=== PATIENT | female | born 1975 | race Caucasian/White ===

== ENCOUNTER 2022-03-26 00:36 | Inpatient (IN) | payer OTHER ==
[2022-03-26] MEDS ORDERED: ACETAMINOPHEN 500 MG TAB ONE (01:23)
[2022-03-26 01:28] LABS: Absolute Lymphocytes (CBC) 1.8 K/uL (0.7-4.9); MCV 88.5 fL (80-100); MPV 8.3 fL (7.6-11.3); RBC Red Blood Cell Count 4.07 M/uL (3.86-4.86)
[2022-03-26 01:29] LABS: Protime INR 1.1
[2022-03-26 01:35] LABS: Blood Gas Oxyhemoglobin 90.4 % (94-97); Blood O2 Saturation 93.2 % (92-98.5)
[2022-03-26 01:42] LABS: Bilirubin Direct 0.2 mg/dL (0-0.2); Bilirubin Total 0.4 mg/dL (0.2-1.0); Magnesium 1.8 mg/dL (1.8-2.4); Potassium 4.1 mmol/L (3.5-5.1); Protein, Total 7.7 g/dL (6.4-8.2); Troponin High Sensitivity 26.3 pg/mL (<58.9)
[2022-03-26 02:10] LABS: Urine Blood Negative (Negative); Urine Glucose Negative (Negative); Urine Protein Negative (Negative); Urine Specific Gravity >=1.030 (1.005-1.030); Urine pH 5.5 (5.0-7.0)
[2022-03-26] MEDS ORDERED: AZITHROMYCIN 500 MG INJ IVPB ONE (02:18)
[2022-03-26] MEDS ORDERED: CEFTRIAXONE 1000 MG/VIAL ONE (02:18)
[2022-03-26] MEDS ORDERED: NA CHLORIDE 0.9% 1,000 ML ONE (02:18)
[2022-03-26] MEDS ORDERED: NA CHLORIDE 0.9% 250 ML ONE (02:18)
[2022-03-26] MEDS ORDERED: METHYLPREDNISOLONE 125 MG INJ ONE (02:18)
--- NOTE | 2022-03-26 02:57 | P.HP ---
Certification for Inpatient Patient admitted to: Inpatient With expected LOS: >2 Midnights Patient will require the following post-hospital care: None Practitioner: I am a practitioner with admitting privileges, knowledge of patient current condition, hospital course, and medical plan of care. Services: Services provided to patient in accordance with Admission requirements found in Title 42 Section 412.3 of the Code of Federal Regulations <Mayo Quinn - Last Filed: 03/26/22 02:49> Patient History Date of Service: 03/26/22 Reason for admission: Hypercapnic respiratory failure History of Present Illness: 47-year-old female history morbid obesity, COPD, diabetes mellitus type II who is a prison resident for the last 2 years presents emergency department for shortness of breath and fever. Patient reports that the shortness of breath and fever began today her room air saturations were around 82%. Her labs were significant for leukocytosis, moderate lactic acidosis, hyperglycemia, elevated BNP. ABG demonstrated hypercapnic respiratory failure. Patient with suspected pneumonia chest x-ray interpretation pending. She was treated with Rocephin and Zithromax in the emergency department placed on BiPAP for hypercapnic respiratory failure ED provider wishes to admit for further evaluation and management. - Past Medical/Surgical History -: COPD -: DMII -: morbid obesity Past Surgical History: Unable to obtain Psychosocial/ Personal History: Patient is resident of prison - Family History Family History: Reviewed- Non-Contributory - Social History Smoking Status: Never smoker Alcohol use: No CD- Drugs: No Caffeine use: Yes Place of Residence: Home <Mayo Quinn - Last Filed: 03/26/22 02:49> Date of Service: 03/26/22 <Daniel Carvalho - Last Filed: 03/26/22 18:28> Review of Systems 10-point ROS is otherwise unremarkable General: Fever, Chills, Weakness, Malaise Respiratory: Cough, Shortness of Breath <Mayo Quinn - Last Filed: 03/26/22 02:49> Physical Examination - Physical Exam General: Alert, In no apparent distress, Oriented x3, Obese HEENT: Atraumatic, PERRLA, Mucous membr. moist/pink, EOMI, Sclerae nonicteric Neck: Supple, 2+ carotid pulse no bruit, No LAD, Without JVD or thyroid abnormality Respiratory: Diminished, Expiratory wheezes, Other (BiPAP) Cardiovascular: Regular rate/rhythm, Normal S1 S2 Capillary refill: <2 Seconds Gastrointestinal: Normal bowel sounds, No tenderness Musculoskeletal: No tenderness Integumentary: No rashes Neurological: Normal speech, Normal strength at 5/5 x4 extr, Normal tone - Studies Laboratory Data (last 24 hrs) 03/26/22 00:55: PT 12.1, INR 1.10 03/26/22 00:55: WBC 12.6 H, Hgb 11.2 L, Hct 36.0, Plt Count 288 03/26/22 00:55: Sodium 133 L, Potassium 4.1, BUN 11, Creatinine 0.89, Glucose 277 H, Magnesium 1.8, Total Bilirubin 0.4, AST 10 L, ALT 17, Alkaline P hosphatase 91 <Mayo Quinn - Last Filed: 03/26/22 02:49> - Studies Laboratory Data (last 24 hrs) 03/26/22 00:55: PT 12.1, INR 1.10 03/26/22 00:55: WBC 12.6 H, Hgb 11.2 L, Hct 36.0, Plt Count 288 03/26/22 00:55: Sodium 133 L, Potassium 4.1, BUN 11, Creatinine 0.89, Glucose 27 7 H, Magnesium 1.8, Total Bilirubin 0.4, AST 10 L, ALT 17, Alkaline Phosphatase 91 Microbiology Data (last 24 hrs): 03/26/22 01:28 Nasopharnyx Influenza Type A Antigen Screen - Final 03/26/22 01:28 Nasopharnyx Influenza Type B Antigen Screen - Final 03/26/22 01:28 Throat Group A Streptococcus Rapid Screen - Final <Daniel Carvalho - Last Filed: 03/26/22 18:28> Assessment and Plan - Plan Assessment: Severe sepsis without septic shock secondary to suspected pneumonia Acute hypercapnic respiratory failure COPD with exacerbation Chronic systolic congestive heart failure Morbid Obesity Depression Plan: Severe sepsis without septic shock secondary to suspected pneumonia: Patient given 1 L NS bolus in the ER given history of systolic heart failure, blood pressure stable. Patient was covered with Rocephin and Zithromax for suspected pneumonia COVID/influenza test pending. Blood cultures were obtained. Acute hypercapnic respiratory failure: Continue BiPAP, pulmonology consulted likely combination pneumonia/obesity hypoventilation/COPD exacerbation. COPD with exacerbation: Continue IV steroids, BiPAP, as needed nebulizer treatments. Pulmonology consult in place. Chronic systolic congestive heart failure: Continue home dose of Lasix 80 mg daily, echocardiogram available for review unknown EF. Diagnosis per chart review. Morbid Obesity: Patient morbidly obese, bedbound for last 2 years currently resides in a prison with just lifestyle changes, provide patient with bariatric bed when available. Depression: Medications continued. DVT PPX: Lovenox Code status: Full code Discharge Plan: Prison Plan to discharge in: 72 Hours - Advance Directives Does patient have a Living Will: No Does patient have a Durable POA for Healthcare: No - Code Status/Comfort Care Code Status Assessed: Yes (Full code) Critical Care: No Time Spent Managing Pts Care (In Minutes): 70 <Mayo Quinn - Last Filed: 03/26/22 02:49> - Plan Patient seen and examined on rounds this morning. Agree with plan of care as noted above. Patient breathing more comfortably now on BiPAP for few hours States that she has COPD and wears chronic 3 L nasal cannula at the prison all day for "a while" Elevated lactate, secondary to hypoxemia Appears to be in acute CHF exacerbation, sepsis bolus fluids not given, avoid fluids for patient given her volume status suspect oxygenation to improve with diuresis / steroids / antibiotics, and help lactic acidosis alexa for accurate I/Os <Daniel Carvalho - Last Filed: 03/26/22 18:28>
--- NOTE | 2022-03-26 04:17 | ER ---
Nurse's Notes [facility] Name: Courtney Sawyer Age: 47 yrs Sex: Female : 1975 Arrival Date: 03/26/2022 Time: 00:39 Bed 15 Private MD: Diagnosis: COPD/ Chronic obstructive pulmonary disease with (acute) exacerbation;Acute respiratory failure with hypercapnia Presentation: 03/26 00:50 Chief complaint: EMS states: Call received form longterm for low oxygen level 82%, ke1 patient put on NR mask and administered neb treatment by EMS increased her O2 to 94%. Initial Sepsis Screen: Does the patient meet any 2 criteria? RR > 20 per min. Temp <36.0*C (96.8*F)) or > 38.3*C (100.9*F). HR > 90 bpm. Yes Does the patient have a suspected source of infection? No. Patient's initial sepsis screen is negative. Risk Assessment: Do you want to hurt yourself or someone else? Patient reports no desire to harm self or others. Onset of symptoms was March 25, 2022. 00:50 Method Of Arrival: EMS ke1 00:50 Acuity: LAURI 3 ke1 Triage Assessment: 00:58 General: Appears in no apparent distress. Behavior is appropriate for age. Respiratory: ke1 Respiratory effort is even, unlabored. 01:00 Respiratory: the patient has moderate shortness of breath. ke1 03:47 Respiratory: Reports. ke1 Historical: - Allergies: 00:57 Codeine; ke1 00:57 Adhesives; ke1 - PMHx: 00:57 Diabetes mellitus; copd; Asthma; ke1 Screenin:11 Abuse screen: Denies threats or abuse. Nutritional screening: No deficits noted. ke1 Tuberculosis screening: No symptoms or risk factors identified. Fall Risk No fall in past 12 months (0 pts). No secondary diagnosis (0 pts). IV access (20 points). Ambulatory Aid- Furniture (30 pts.). Gait- Normal/Bed Rest/Wheelchair (0 pts) Mental Status- Oriented to own ability (0 pts). Total Olmedo Fall Scale indicates High Risk Score (45 or more points). Fall prevention measures have been instituted. Side Rails Up X 2 Placed Close to Nursing Station Frequent Obs/Assessments Occuring. Sepsis Screening:. Assessment: 02:02 Reassessment: Lactic 3.1, notified. vc1 03:09 Pain: Denies pain. Cardiovascular: Rhythm is sinus rhythm. Respiratory: Patient placed ke1 on BiPAP: Inspiratory Pressure: 16 Expiratory (EPAP) Pressure: 8 FiO2%: 40 Respiratory Rate: 18 Breath sounds with wheezes bilaterally. GI: Abdomen is obese. : Genitalia appear normal. Derm: Skin is intact, is healthy with good turgor. 03:12 Respiratory: Airway is patent. ke1 Vital Signs: 00:50 BP 101 / 65; Pulse 98; Resp 21; Temp 101.2; Pulse Ox 97% ; Weight 230.5 kg; Height 5 ke1 ft. 8 in. (172.72 cm); 03:07 BP 101 / 61; Pulse 89; Pulse Ox 94% on BiPAP 16/8/18 40 %; ke1 03:46 BP 99 / 65; Pulse 77; Resp 17; Temp 98.7(A); Pulse Ox 92% on BiPAP; ke1 04:55 BP 98 / 64; Pulse 72; Resp 22; Temp 98.6(A); Pulse Ox 93% on BiPAP; Pain 0/10; ke1 00:50 Body Mass Index 77.27 (230.50 kg, 172.72 cm) ke1 ED Course: 00:39 Patient arrived in ED. oe 00:39 Severiano Alexander MD is Attending Physician. 7 00:50 Keyla Hernandez, RN is Primary Nurse. ke1 00:57 Triage completed. ke1 01:05 Inserted saline lock: 20 gauge in right forearm, using aseptic technique. Blood oe collected. 02:21 XRAY Chest (1 view) In Process Unspecified. EDMS 03:12 Arm band placed on left wrist. ke1 03:12 Call light in reach. Side rails up X 1. Side rails up X2. ke1 04:13 Daniel Carvalho MD is Hospitalizing Provider. mh7 04:45 Lactate Sent. ke1 07:00 Patient placed on BiPAP. Inspiratory pressure: 16. Expiratory pressure: 8. FIO2: 40. eb2 Rate: 18 Alarms Set: Alarms are set, functioning and audible at nurse's station. Education provided to the patient regarding: Other: Patient was educated on BiPAP, and the need to keep it on as long as possible due to her ABG results from earlier this morning. Respiratory: No deficits noted. Breath sounds are diminished bilaterally. 07:00 Patient tolerated well. eb2 07:09 Primary Nurse role handed off by Keyla Hernandez, FREDERICK bp 07:09 Derik Huynh, RN is Primary Nurse. bp Administered Medications: 01:45 Drug: Tylenol 1000 mg Route: PO; vc1 02:30 Drug: SOLU-Medrol (methylPrednisoLONE) 125 mg Route: IVP; Site: right forearm; vc1 02:30 Drug: NS 0.9% 1000 ml Route: IV; Rate: 1000 ml; Site: right forearm; vc1 02:30 Drug: Rocephin (cefTRIAXone) 1 grams Route: IV; Rate: calculated rate; Site: right vc1 forearm; 02:30 Drug: Zithromax (azithromycin) 500 mg Route: IVPB; Infused Over: 1 hrs; Site: right vc1 forearm; Outcome: 04:16 Decision to Hospitalize by Provider. [facility] 16:40 Patient left the ED. bp Signatures: Dispatcher [employer] EDMS Jay Watts Brian, RN RN bp Jackie Navarro, R/T R/T eb2 Severiano Alexander MD MD 7 Samia Vitale RN RN vc1 Keyla Hernandez, FREDERICK RN ke1 Corrections: (The following items were deleted from the chart) 03:51 03:46 BP 99 / 65; Pulse 77bpm; Resp 17bpm; Pulse Ox 92% BiPAP; ke1 ke1
--- NOTE | 2022-03-26 04:17 | EDPHYS ---
Physician Documentation [facility] Name: Courtney Sawyer Age: 47 yrs Sex: Female : 1975 Arrival Date: 03/26/2022 Time: 00:39 Bed 15 Private MD: ED Physician Severiano Alexander HPI: 03/26 01:00 This 47 yrs old Female presents to ER via EMS with complaints of Shortness Of Breath. mh7 01:00 The patient has shortness of breath at rest. Onset: The symptoms/episode began/occurred mh7 just prior to arrival, today. Duration: The symptoms are continuous, and are steadily getting worse. The patient's shortness of breath is aggravated by coughing, is alleviated by nebulizer treatment. Associated signs and symptoms: Pertinent positives: non-productive cough, Pertinent negatives: chest pain, productive cough, diaphoresis, dizziness, fever, hemoptysis, loss of consciousness, nausea, numbness in extremities, visual changes, vomiting. Severity of symptoms: At their worst the symptoms were moderate today, in the emergency department the symptoms have improved moderately. Historical: - Allergies: 00:57 Codeine; ke1 00:57 Adhesives; ke1 - PMHx: 00:57 Diabetes mellitus; copd; Asthma; ke1 ROS: 01:00 Constitutional: Negative for fever, chills, and weight loss, Eyes: Negative for injury, mh7 pain, redness, and discharge, ENT: Negative for injury, pain, and discharge, Neck: Negative for injury, pain, and swelling, Cardiovascular: Negative for chest pain, palpitations, and edema, Abdomen/GI: Negative for abdominal pain, nausea, vomiting, diarrhea, and constipation, Back: Negative for injury and pain, : Negative for injury, bleeding, discharge, and swelling, MS/Extremity: Negative for injury and deformity, Skin: Negative for injury, rash, and discoloration, Neuro: Negative for headache, weakness, numbness, tingling, and seizure, Psych: Negative for depression, anxiety, suicide ideation, homicidal ideation, and hallucinations, Allergy/Immunology: Negative for hives, rash, and allergies, Endocrine: Negative for neck swelling, polydipsia, polyuria, polyphagia, and marked weight changes, Hematologic/Lymphatic: Negative for swollen nodes, abnormal bleeding, and unusual bruising. Exam: 01:00 Head/Face: Normocephalic, atraumatic. Eyes: Pupils equal round and reactive to light, mh7 extra-ocular motions intact. Lids and lashes normal. Conjunctiva and sclera are non-icteric and not injected. Cornea within normal limits. Periorbital areas with no swelling, redness, or edema. Neck: Trachea midline, no thyromegaly or masses palpated, and no cervical lymphadenopathy. Supple, full range of motion without nuchal rigidity, or vertebral point tenderness. No Meningismus. Chest/axilla: Normal chest wall appearance and motion. Nontender with no deformity. No lesions are appreciated. Cardiovascular: Regular rate and rhythm with a normal S1 and S2. No gallops, murmurs, or rubs. Normal PMI, no JVD. No pulse deficits. 01:00 Abdomen/GI: Soft, non-tender, with normal bowel sounds. No distension or tympany. No guarding or rebound. No evidence of tenderness throughout. Skin: Warm, dry with normal turgor. Normal color with no rashes, no lesions, and no evidence of cellulitis. MS/ Extremity: Pulses equal, no cyanosis. Neurovascular intact. Full, normal range of motion. Psych: Awake, alert, with orientation to person, place and time. Behavior, mood, and affect are within normal limits. 01:00 Constitutional: The patient appears in no acute distress, alert, awake, obviously ill. 01:00 Respiratory: mild respiratory distress is noted, Respirations: prolonged exhalation, that is mild, Breath sounds: rhonchi, that are moderate, are scattered, Respiratory rate: 20 Vital Signs: 00:50 BP 101 / 65; Pulse 98; Resp 21; Temp 101.2; Pulse Ox 97% ; Weight 230.5 kg; Height 5 ke1 ft. 8 in. (172.72 cm); 03:07 BP 101 / 61; Pulse 89; Pulse Ox 94% on BiPAP 16/8/18 40 %; ke1 03:46 BP 99 / 65; Pulse 77; Resp 17; Temp 98.7(A); Pulse Ox 92% on BiPAP; ke1 04:55 BP 98 / 64; Pulse 72; Resp 22; Temp 98.6(A); Pulse Ox 93% on BiPAP; Pain 0/10; 1 00:50 Body Mass Index 77.27 (230.50 kg, 172.72 cm) 1 MDM: 04:12 Differential diagnosis: Anemia Anxiety Reaction asthma, Bronchitis CHF exacerbation, [facility] Chronic Obstructive Pulmonary Disease Myocardial Infarction pneumonia, Pneumothorax Psychogenic pulmonary edema. Data reviewed: vital signs, nurses notes, EMS record, long-term records, lab test result(s), cardiac enzymes, CBC, electrolytes, EKG, radiologic studies, plain films. Data interpreted: Pulse oximetry: on BiPAP is 94 %. Interpretation: acceptable. Counseling: I had a detailed discussion with the patient and/or guardian regarding: the historical points, exam findings, and any diagnostic results supporting the discharge/admit diagnosis, lab results, radiology results, the need for further work-up and treatment in the hospital. Response to treatment: the patient's symptoms have mildly improved after treatment. 04:16 Patient medically screened. [facility] 03/26 01:02 Order name: Basic Metabolic Panel; Complete Time: 03:05 [facility] 03/26 01:02 Order name: CBC with Diff; Complete Time: 03:05 [facility] 03/26 01:02 Order name: LFT's; Complete Time: 03:05 [facility] 03/26 01:02 Order name: Magnesium; Complete Time: 03:05 [facility] 03/26 01:02 Order name: NT PRO-BNP; Complete Time: 03:05 [facility] 03/26 01:02 Order name: PT-INR; Complete Time: 01:41 [facility] 03/26 01:02 Order name: Troponin HS; Complete Time: 03:05 [facility] 03/26 01:02 Order name: Blood Culture Adult (2) [facility] 03/26 01:02 Order name: Urine Culture [facility] 03/26 01:02 Order name: COVID-19 SARS RT PCR (Document "Date of Onset" if Symptomatic) [facility] 03/26 01:02 Order name: Influenza Screen (a \\T\\ B) [facility] 03/26 01:02 Order name: Rapid Strep [facility] 03/26 01:02 Order name: Arterial Blood Gas; Complete Time: 03:05 [facility] 03/26 01:10 Order name: Glucose, Ancillary Testing; Complete Time: 01:41 [facility] 03/26 01:02 Order name: XRAY Chest (1 view) [facility] 03/26 01:53 Order name: Lactate; Complete Time: 03:05 ld1 03/26 02:07 Order name: BIPAP 1 03/26 02:10 Order name: Urine Dipstick-Ancillary; Complete Time: 03:05 [facility] 03/26 03:57 Order name: Lactate on license of [facility] 03/26 05:03 Order name: Lactate Sepsis 2 HR Follow-up; Complete Time: 05:20 EDN[facility] 03/26 06:47 Order name: ABG Arterial Blood Gas [facility] 03/26 07:01 Order name: Glucose, Ancillary Testing [facility] 03/26 09:17 Order name: Lactate [facility] 03/26 12:02 Order name: Glucose, Ancillary Testing [facility] 03/26 12:22 Order name: Lactate Sepsis 2 HR Follow-up [facility] 03/26 16:34 Order name: Thyroid Stimulating Hormone [facility] 03/26 01:02 Order name: EKG; Complete Time: 01:03 [facility] 03/26 01:02 Order name: Cardiac monitoring; Complete Time: 01:05 [facility] 03/26 01:02 Order name: EKG - Nurse/Tech; Complete Time: 01:05 [facility] 03/26 01:02 Order name: IV Saline Lock; Complete Time: 01:06 [facility] 03/26 01:02 Order name: Labs collected and sent; Complete Time: 02:07 [facility] 03/26 01:02 Order name: O2 Per Protocol; Complete Time: 01:06 [facility] 03/26 01:02 Order name: O2 Sat Monitoring; Complete Time: 01:06 [facility] 03/26 01:02 Order name: Urine Dipstick-Ancillary (obtain specimen); Complete Time: 02:08 [facility] 03/26 01:02 Order name: Urine Test (obtain specimen); Complete Time: 02:08 [facility] Administered Medications: 01:45 Drug: Tylenol 1000 mg Route: PO; vc1 02:30 Drug: SOLU-Medrol (methylPrednisoLONE) 125 mg Route: IVP; Site: right forearm; vc1 02:30 Drug: NS 0.9% 1000 ml Route: IV; Rate: 1000 ml; Site: right forearm; vc1 02:30 Drug: Rocephin (cefTRIAXone) 1 grams Route: IV; Rate: calculated rate; Site: right vc1 forearm; 02:30 Drug: Zithromax (azithromycin) 500 mg Route: IVPB; Infused Over: 1 hrs; Site: right vc1 forearm; Disposition Summary: 03/26/22 04:16 Hospitalization Ordered Hospitalization Status: Inpatient Admission [facility] Provider: Daniel Carvalho Condition: Stable [facility] Problem: an acute exacerbation [facility] Symptoms: have improved mh Bed/Room Type: Standard [facility] Location: Telemetry/MedSurg (Inpatient)(03/26/22 16:07) eb Room Assignment: [facility](03/26/22 16:07) eb Diagnosis - COPD/ Chronic obstructive pulmonary disease with (acute) exacerbation 7 - Acute respiratory failure with hypercapnia [facility] Forms: - Medication Reconciliation Form mh7 - SBAR form 7 Signatures: Dispatcher [employer] EDMS Mayo Quinn, MISAEL-C FACING CUTTING MACHINE OPERATOR-Cla1 Mitzi Otero, RN RN Rafaela Tran Maurice, MD MD 7 Damaris Omalley RN RN ld1 Samia Vitale RN RN vc1 Keyla Hernandez RN RN ke1 Corrections: (The following items were deleted from the chart) 05:18 04:16 Telemetry/MedSurg (Inpatient) mh7 cg 05:18 04:16 mh7 cg 16:07 05:18 [facility] ER HOLD cg eb 16:07 05:18 ERHOLD- cg eb
[2022-03-26] MEDS ORDERED: BENZONATATE 100 MG CAP PO PRN (06:12)
[2022-03-26] MEDS ORDERED: ONDANSETRON 4 MG/2 ML VIAL IV PRN (06:12)
[2022-03-26] MEDS ORDERED: ALBUTEROL 2.5 MG/3 ML NEB SOL NEB PRN (06:12)
[2022-03-26 06:27] VITALS: BMI 77.2
[2022-03-26 06:45] LABS: Arterial Blood Carboxyhemoglob 1.9 % (0-1.5); Blood Gas Oxyhemoglobin 94.7 % (94-97); Blood O2 Saturation 97.5 % (92-98.5)
[2022-03-26] MEDS: INSULIN -REGULAR HUMAN 50 UNIT/0.5 ML ML SQ SCH ×4 (07:30→21:30)
[2022-03-26] MEDS ORDERED: INSULIN -REGULAR HUMAN 50 UNIT/0.5 ML ML ONE ×3 (08:43→13:55)
[2022-03-26] MEDS: DULERA 200/5 (MOMETASONE/FORMOTEROL) INHALER IH SCH ×2 (09:00→21:00)
[2022-03-26] MEDS: lisinopriL 5 MG TAB PO SCH (09:00)
[2022-03-26] MEDS: ENOXAPARIN 40 MG/0.4 ML SQ SCH (09:00)
[2022-03-26] MEDS: ASPIRIN EC 81 MG TAB PO SCH (09:00)
[2022-03-26] MEDS: FUROSEMIDE 40 MG TABLET PO SCH (09:00)
[2022-03-26] MEDS ORDERED: METHYLPREDNISOLONE 40 MG INJ IV SCH (09:00)
[2022-03-26] MEDS: SERTRALINE HCL 100 MG TAB PO SCH (09:00)
[2022-03-26] MEDS ORDERED: INSULIN GLARGINE 100 UNIT/ML SQ SCH (09:00)
[2022-03-26] MEDS ORDERED: INSULIN GLARGINE 100 UNIT/ML SQ ONE (09:11)
--- NOTE | 2022-03-26 09:11 | EKG ---
Test Date: 2022-03-26 Test Time: 00:42:10 Senior Operations Manager: CAROLINA MEASUREMENT RESULTS: Intervals: Rate: 100 TN: 178 QRSD: 90 QT: 366 QTc: 472 [place]ett: P: 40 TN: 178 QRS: 55 T: 59 INTERPRETIVE STATEMENTS: Normal sinus rhythm Normal ECG No previous ECG available for comparison Electronically Signed On 03-26-22 09:10:36 CDT by Jessee Carter
[2022-03-26] MEDS ORDERED: METHYLPREDNISOLONE 40 MG INJ ONE (09:12)
[2022-03-26] MEDS ORDERED: FUROSEMIDE 40 MG TABLET ONE (09:12)
[2022-03-26] MEDS ORDERED: lisinopriL 5 MG TAB ONE (09:12)
[2022-03-26] MEDS ORDERED: ASPIRIN EC 81 MG TAB PO ONE (09:12)
[2022-03-26] MEDS ORDERED: ENOXAPARIN 40 MG/0.4 ML SQ ONE (09:13)
--- NOTE | 2022-03-26 11:44 | CON ---
Date of Consultation: 03/26/2022 Reason For Consultation: Congestive heart failure and sepsis. History Of Present Illness: Ms. Sawyer is 47. She is a long-term resident. She has a history of COPD, diabetes, asthma, and congestive heart failure. She came into the emergency room with PND, ort hopnea, pedal edema, shortness of breath, and was found to be septic as well. Denied chest pain, madhuri sea, vomiting. Has had some diaphoresis and has had some chills, but no fever. Denied any chest chito n. Past Medical History: As stated above. Allergies: SHE IS ALLERGIC TO CODEINE AND ADHESIVE TAPE. Social History: Positive for being a long-term resident. Review of Systems: Negative. Family History: Noncontributory. Medications: Include Lasix, inhalers, Lipitor. Physical Examination: General: She is morbidly obese. Vital Signs: Otherwise stable. She was in sinus rhythm, afebrile. HEENT: Negative. Neck: Supple with no bruit. Chest: Reveals rales throughout. Cardiac: Revealed S4 gallops. Regular rhythm and rate. Abdomen: Obese. Extremities: Revealed no edema, clubbing, or cyanosis. Diagnostic Data: Glucose was 317. On CPAP and BiPAP; her pO2 was 97, pCO2 was 63, pH of 7.35. Her white count is 17. Lactic acid level is 3.37. BNP is 1149. Impression And Plan: 1.Acute on chronic systolic congestive heart failure. 2.Acute on chronic obstructive pulmonary disease exacerbation. 3.Sepsis. 4.Morbid obesity. 5.Diabetes. 6.CO2 retention. 7.Elevated BNP. The patient presently is on Lovenox, steroids, insulin, Lasix, inhalers, Lipitor, a ntibiotics, and lisinopril. I agree with her present regimen. I would like her to get another echoc ardiogram on Monday to see what her ejection fraction is. We will continue to follow Mrs. Cem oneil with Dr. Carvalho. Depending her ejection fraction, she may be a candidate for carvedilol and/or Entr esto, but we will see what her EF shows first. FELICIANO/MARCUS Voice ID: [id number] Report ID: [id number]
[2022-03-26] MEDS ORDERED: D50W 25 GM/50 ML SYRINGE IV PRN (13:07)
[2022-03-26] MEDS ORDERED: GLUCAGON 1 MG/VIAL IM PRN (13:07)
[2022-03-26] MEDS ORDERED: INSULIN -REGULAR HUMAN 50 UNIT/0.5 ML ML IV ONE (13:15)
--- NOTE | 2022-03-26 15:18 | P.CNS ---
Date of Consult: 03/26/22 Reason for Consult: Resp failure Chief Complaint: Hypercapnic respiratory failure History of Present Illness: AGe 47 AW SOB and hypersomnia, Low sat's. No Prioe Hxof KATHI / Metabolic syndrome. Morbidly obese. Unable to ambulate has a decubitus ulcer 4 Allergies adhesive tape Adverse Reaction (Intermediate, Verified 03/26/22 06:12) Nausea/Vomiting codeine Adverse Reaction (Intermediate, Verified 03/26/22 06:12) Nausea/Vomiting Home Medications: Albuterol Sulfate [Proair Digihaler] 90 mcg IH TID 03/26/22 Aripiprazole [Abilify] 10 mg PO BEDTIME 03/26/22 Aspirin [Aspirin EC 81 MG] 81 mg PO DAILY 03/26/22 Atorvastatin Calcium 40 mg PO BEDTIME 03/26/22 Benztropine Mesylate 1 mg PO BEDTIME 03/26/22 Budesonide/Formoterol Fumarate [Symbicort 160-4.5 Mcg Inhaler] 2 puff IH BID 03/26/22 Docusate [Colace Cap] 100 mg PO BID 03/26/22 Ergocalciferol (Vitamin D2) [Vitamin D2] 50,000 unit PO DAILY 03/26/22 Ferrous Sulfate 325 mg PO DAILY 03/26/22 Fexofenadine HCl [Jeri Allergy] 180 mg PO DAILY 03/26/22 Folic Acid 0.4 mg PO DAILY 03/26/22 Furosemide 80 mg PO BID 03/26/22 Gabapentin 300 mg PO TID 03/26/22 Lisinopril [Zestril] 5 mg PO DAILY 03/26/22 Metformin HCl [Glucophage*] 500 mg PO BID 03/26/22 - Past Medical/Surgical History -: COPD -: DMII -: morbid obesity Psychosocial/ Personal History: Patient is resident of group home - Social History Alcohol use: No CD- Drugs: No Caffeine use: Yes Place of Residence: Home Review of Systems 10-point ROS is otherwise unremarkable Respiratory: Cough, Shortness of Breath Physical Examination Temp Pulse Resp BP Pulse Ox 60 17 117/67 87 L 03/26/22 12:00 03/26/22 12:00 03/26/22 12:00 03/26/22 12:00 General: Alert, Oriented x3, Mild distress Respiratory: Clear to auscultation bilaterally Cardiovascular: No edema, Normal pulses, Regular rate/rhythm Gastrointestinal: Normal bowel sounds, Soft and benign Laboratory Data (last 24 hrs) 03/26/22 00:55: PT 12.1, INR 1.10 03/26/22 00:55: WBC 12.6 H, Hgb 11.2 L, Hct 36.0, Plt Count 288 03/26/22 00:55: Sodium 133 L, Potassium 4.1, BUN 11, Creatinine 0.89, Glucose 277 H, Magnesium 1.8, Total Bilirubin 0.4, AST 10 L, ALT 17, Alkaline Phosphatase 91 - Problems (1) Respiratory failure with hypoxia and hypercapnia Current Visit: Yes Status: Acute Plan: Pt is 47 yrs of age AW rEsp failure . Likely se to Obesity. check TS, low dose pred, hx of COPD former smoker. DM out of controll/ labs reviwed/cxry ILD diastolic failure?, Add sprionolactone. bronchodilators. out patient CPAP/BIPAP Qualifiers: Chronicity: acute on chronic Qualified Code(s): J96.21 - Acute and chronic respiratory failure with hypoxia; J96.22 - Acute and chronic respiratory failure with hypercapnia
[2022-03-26] MEDS: ALBUTEROL 2.5 MG/3 ML NEB SOL NEB SCH (20:00)
[2022-03-26] MEDS: IPRATROPIUM BROM 0.5MG/2.5ML NEB SCH (20:00)
[2022-03-26] MEDS ORDERED: AZITHROMYCIN IV 500 MG in NA CHLORIDE 0.9% 250 ML IVPB SCH (21:00)
[2022-03-26] MEDS: CEFTRIAXONE 1,000 MG in NA CHLORIDE 0.9% 50 ML IVPB SCH (21:25)
[2022-03-26] MEDS: ATORVASTATIN 40 MG TAB PO SCH (21:25)
[2022-03-26] MEDS: predniSONE 20 MG TAB PO SCH (21:26)
[2022-03-26] MEDS: SPIRONOLACTONE 25 MG TABLET PO SCH (21:26)
[2022-03-26] MEDS: ARIPiprazole 5 MG TAB PO SCH (21:30)
[2022-03-26] MEDS: GABAPENTIN 300 MG CAP PO PRN (21:39)
[2022-03-27] MEDS: ALBUTEROL 2.5 MG/3 ML NEB SOL NEB SCH ×4 (01:25→20:10)
[2022-03-27] MEDS: IPRATROPIUM BROM 0.5MG/2.5ML NEB SCH ×4 (01:25→20:10)
[2022-03-27 03:54] LABS: Urine Appearance Clear (Clear); Urine Bilirubin Negative (Negative); Urine Blood Negative (Negative); Urine Color Yellow (Yellow); Urine Glucose 3+ (Negative); Urine Protein Negative (Negative); Urine Specific Gravity 1.025 (1.005-1.030); Urine Urobilinogen 0.2 mg/dL (0.2-1.0)
[2022-03-27 04:05] LABS: Urine Microscopic Reflex NO UMIC
[2022-03-27 04:41] LABS: Absolute Lymphocytes (CBC) 1.7 K/uL (0.7-4.9); Hematocrit 32.5 % (36.0-45.0); Lymphocytes % 13.6 % (15.3-44.8); MCV 87.4 fL (80-100); MPV 8.6 fL (7.6-11.3); RBC Red Blood Cell Count 3.72 M/uL (3.86-4.86)
[2022-03-27 05:03] LABS: Albumin 2.8 g/dL (3.4-5.0); Bilirubin Total 0.3 mg/dL (0.2-1.0); Potassium 4.3 mmol/L (3.5-5.1); Protein, Total 7.4 g/dL (6.4-8.2)
--- NOTE | 2022-03-27 06:59 | P.PN ---
Date of Service: 03/27/22 Subjective: breathing more comfortably no new complaints ROS: 10 point ROS as noted above, otherwise negative Physical exam GEN: Alert, oriented, NAD, morbidly obese HEENT: Normal conjunctiva, sclera anicteric CV: Regular rate and rhythm, b/l edema Pulm: mildly labored respirations on 4L NC ABD: Soft, nontender, nondistended Neuro: Normal speech, normal affect Problem List Severe sepsis without septic shock secondary to suspected pneumonia Acute hypercapnic respiratory failure acute on chronic COPD with exacerbation (on 3L NC chronically) Chronic systolic congestive heart failure Morbid Obesity Depression did not receive sepsis bolus due to CHF / volume overloaded continue bipap, lasix nebs, inhalers pulm consulted bipap as needed conitnue lasix echo ordered for tomorrow cardiology consulted continue home meds VTE: lovenox Code: full Dispo: back to retirement, ~2 days Time Spent Managing Pts Care (In Minutes): 35
[2022-03-27] MEDS: FUROSEMIDE 40 MG TABLET PO SCH (08:32)
[2022-03-27] MEDS: lisinopriL 5 MG TAB PO SCH (08:32)
[2022-03-27] MEDS: ASPIRIN EC 81 MG TAB PO SCH (08:32)
[2022-03-27] MEDS: INSULIN -REGULAR HUMAN 50 UNIT/0.5 ML ML SQ SCH ×4 (08:33→21:59)
[2022-03-27] MEDS: GABAPENTIN 300 MG CAP PO PRN ×2 (08:33→21:58)
[2022-03-27] MEDS: SERTRALINE HCL 100 MG TAB PO SCH (08:33)
[2022-03-27] MEDS: predniSONE 20 MG TAB PO SCH ×2 (08:33→21:58)
[2022-03-27] MEDS: ENOXAPARIN 40 MG/0.4 ML SQ SCH (08:33)
[2022-03-27] MEDS: SPIRONOLACTONE 25 MG TABLET PO SCH ×2 (08:38→21:57)
[2022-03-27] MEDS ORDERED: INSULIN GLARGINE 100 UNIT/ML SQ SCH (09:00)
[2022-03-27] MEDS ORDERED: DOCUSATE NA 100 MG CAP PO PRN (09:16)
[2022-03-27] MEDS: DULERA 200/5 (MOMETASONE/FORMOTEROL) INHALER IH SCH ×2 (09:18→21:58)
--- NOTE | 2022-03-27 11:10 | RAD REPORT ---
EXAM DESCRIPTION: Eric Single View03/27/2022 10:49 am CLINICAL HISTORY: Shortness of breath COMPARISON: March 26, 2022 FINDINGS: The lungs appear clear of acute infiltrate. The heart is mildly enlarged IMPRESSION: No acute abnormalities displayed
--- NOTE | 2022-03-27 18:17 | PN ---
Date of Progress Note: 03/27/2022 Ms. Sawyer had came in with congestive heart failure. Echocardiogram is pending for tomorrow. She mejía s improved overnight. Vital signs are stable. She is afebrile. Her chest still revealed some rales and expiratory wheezing. Mrs. Priest weighs 508 pounds. She is in sinus bradycardia. Her sugar rem ains at 319. O2 saturation on BiPAP is 95%. She remained on antibiotics, steroids, aspirin, Lipitor , Lasix, inhalers, and Aldactone. Her creatinine is only 0.9. Depending what her echocardiogram yifan ws tomorrow, we may be able to put her on low-dose carvedilol and possibly NAJMA inhibitor. We will co dayron to follow her. FELICIANO/MARCUS Voice ID: [id number] Report ID: [id number]
[2022-03-27] MEDS: ARIPiprazole 5 MG TAB PO SCH (21:57)
[2022-03-27] MEDS: ATORVASTATIN 40 MG TAB PO SCH (21:57)
[2022-03-27] MEDS: CEFTRIAXONE 1,000 MG in NA CHLORIDE 0.9% 50 ML IVPB SCH (21:57)
[2022-03-28] MEDS: ALBUTEROL 2.5 MG/3 ML NEB SOL NEB SCH ×4 (01:20→20:05)
[2022-03-28] MEDS: IPRATROPIUM BROM 0.5MG/2.5ML NEB SCH ×4 (01:20→20:05)
[2022-03-28 06:20] LABS: Absolute Lymphocytes (CBC) 1.6 K/uL (0.7-4.9); Hematocrit 32.7 % (36.0-45.0); Lymphocytes % 14.8 % (15.3-44.8); MCV 87.7 fL (80-100); MPV 8.1 fL (7.6-11.3); RBC Red Blood Cell Count 3.73 M/uL (3.86-4.86)
--- NOTE | 2022-03-28 06:50 | P.PN ---
Date of Service: 03/28/22 Subjective: breathing more comfortably improving no new complaints ROS: 10 point ROS as noted above, otherwise negative Physical exam GEN: Alert, oriented, NAD, morbidly obese HEENT: Normal conjunctiva, sclera anicteric CV: Regular rate and rhythm, b/l edema Pulm: mildly labored respirations on 3L NC ABD: Soft, nontender, nondistended Neuro: Normal speech, normal affect Problem List Severe sepsis without septic shock secondary to suspected pneumonia Acute hypercapnic respiratory failure acute on chronic COPD with exacerbation (on 3L NC chronically) Chronic systolic congestive heart failure Morbid Obesity Depression did not receive sepsis bolus due to CHF / volume overloaded on bipap initially, weaned off continue lasix nebs, inhalers pulm consulted echo ordered for today cardiology consulted continue home meds improving dc alexa in AM VTE: lovenox Code: full Dispo: back to correction, likely tomorrow Time Spent Managing Pts Care (In Minutes): 35
[2022-03-28 07:22] LABS: Albumin 2.8 g/dL (3.4-5.0); Bilirubin Total 0.2 mg/dL (0.2-1.0); Magnesium 2.1 mg/dL (1.8-2.4); Potassium 4.2 mmol/L (3.5-5.1); Protein, Total 6.9 g/dL (6.4-8.2)
[2022-03-28] MEDS: INSULIN -REGULAR HUMAN 50 UNIT/0.5 ML ML SQ SCH ×4 (08:32→20:34)
[2022-03-28] MEDS: INSULIN GLARGINE 100 UNIT/ML SQ SCH (08:33)
[2022-03-28] MEDS: lisinopriL 5 MG TAB PO SCH (08:34)
[2022-03-28] MEDS: FUROSEMIDE 40 MG TABLET PO SCH (08:34)
[2022-03-28] MEDS: ENOXAPARIN 40 MG/0.4 ML SQ SCH (08:34)
[2022-03-28] MEDS: SPIRONOLACTONE 25 MG TABLET PO SCH ×2 (08:35→20:36)
[2022-03-28] MEDS: ASPIRIN EC 81 MG TAB PO SCH (08:35)
[2022-03-28] MEDS: predniSONE 20 MG TAB PO SCH ×2 (08:36→20:33)
[2022-03-28] MEDS: DULERA 200/5 (MOMETASONE/FORMOTEROL) INHALER IH SCH ×2 (08:36→20:34)
[2022-03-28] MEDS: GABAPENTIN 300 MG CAP PO PRN (08:42)
--- NOTE | 2022-03-28 11:47 | RAD REPORT ---
EXAM DESCRIPTION: RAD - Chest Single View - 03/26/2022 2:19 am CLINICAL HISTORY: 47 years, Female, Cough COMPARISON: None. FINDINGS: Single view of the chest was obtained portable. No prior films are available for compariso n. External EKG leads within the [id number] limits diagnosis. The heart is prominent. The thoracic aorta is unremarkable. Increased interstitial pulmonary markings could be related to technique due t o large patient body habitus/or less likely the possibility of interstitial pulmonary edema could be of consideration. No significant pleural effusions/or consolidations. The rest of the soft tissue a nd bony structures demonstrate to be unremarkable. IMPRESSION: Increased interstitial pulmonary markings could be related to technique due to large pat ient body habitus and/or less likely the possibility of interstitial pulmonary edema could be of cons ideration. Electronically signed by: Calvin Blair MD 03/26/2022 3:13 AM CDT Due to temporary technical issues with the PACS/Fluency reporting system, reports are being signed by the in house radiologist without review as a courtesy to ensure prompt reporting. The interpreting r adiologist is fully responsible for the content of the report.
[2022-03-28] MEDS: ATORVASTATIN 40 MG TAB PO SCH (20:33)
[2022-03-28] MEDS: ARIPiprazole 5 MG TAB PO SCH (20:34)
[2022-03-29] MEDS: ALBUTEROL 2.5 MG/3 ML NEB SOL NEB SCH ×4 (01:10→20:05)
[2022-03-29] MEDS: IPRATROPIUM BROM 0.5MG/2.5ML NEB SCH ×4 (01:10→20:05)
[2022-03-29 04:07] LABS: Absolute Lymphocytes (CBC) 1.4 K/uL (0.7-4.9); Hematocrit 31.5 % (36.0-45.0); Lymphocytes % 14.3 % (15.3-44.8); MCV 86.6 fL (80-100); MPV 8.3 fL (7.6-11.3); RBC Red Blood Cell Count 3.64 M/uL (3.86-4.86)
[2022-03-29 06:09] LABS: Albumin 2.8 g/dL (3.4-5.0); Bilirubin Total 0.2 mg/dL (0.2-1.0); Magnesium 1.9 mg/dL (1.8-2.4); Potassium 4.2 mmol/L (3.5-5.1)
[2022-03-29] MEDS: INSULIN -REGULAR HUMAN 50 UNIT/0.5 ML ML SQ SCH ×4 (08:50→20:34)
[2022-03-29] MEDS: predniSONE 20 MG TAB PO SCH ×2 (08:51→20:33)
[2022-03-29] MEDS: SPIRONOLACTONE 25 MG TABLET PO SCH (08:51)
[2022-03-29] MEDS: FUROSEMIDE 40 MG TABLET PO SCH (08:51)
[2022-03-29] MEDS: ASPIRIN EC 81 MG TAB PO SCH (08:51)
[2022-03-29] MEDS: ENOXAPARIN 40 MG/0.4 ML SQ SCH (08:51)
[2022-03-29] MEDS: DULERA 200/5 (MOMETASONE/FORMOTEROL) INHALER IH SCH ×2 (08:51→20:34)
[2022-03-29] MEDS: INSULIN GLARGINE 100 UNIT/ML SQ SCH (08:52)
[2022-03-29] MEDS: lisinopriL 5 MG TAB PO SCH (08:52)
[2022-03-29] MEDS ORDERED: levoFLOXacin 750 MG TAB PO SCH (09:00)
--- NOTE | 2022-03-29 12:30 | P.PN ---
Subjective Date of Service: 03/29/22 Chief Complaint: Hypercapnic respiratory failure Subjective: Improving (Patient's condition is stable shortness of breath is slightly improved) Review of Systems General: Weakness Respiratory: Shortness of Breath Physical Examination - Vital Signs Temperature: 97.3 F Blood Pressure: 112/63 Pulse: 50 Respirations: 16 Pulse Ox (%): 98 - Physical Exam General: Alert, In no apparent distress Respiratory: Clear to auscultation bilaterally, Diminished Assessment And Plan - Current Problems (Diagnosis) (1) Respiratory failure with hypoxia and hypercapnia Current Visit: Yes Status: Acute Plan: Patient is 47 years of age patient is 47 years of age admitted with hypoxic hypercapnic respiratory failure condition is currently stable she will benefit from a BiPAP patient will benefit from a BiPAP patient is stable for discharge patient is stable for discharge has oxygen at home/continue with by continue with spironolactone patient does have Symbicort at home go home on low-dose prednisone follow-up with me in 2 weeks Qualifiers: Chronicity: acute on chronic Qualified Code(s): J96.21 - Acute and chronic respiratory failure with hypoxia; J96.22 - Acute and chronic respiratory failure with hypercapnia
--- NOTE | 2022-03-29 15:38 | P.PN ---
Subjective Date of Service: 03/29/22 Chief Complaint: Hypercapnic respiratory failure Patient has no new complaint. She denies shortness of breath. She is currently on baseline oxygen. Physical Examination - Vital Signs Temperature: 97.3 F Blood Pressure: 112/63 Pulse: 50 Respirations: 16 Pulse Ox (%): 98 Assessment And Plan - Plan Physical exam GEN: Alert, oriented, NAD, morbidly obese HEENT: Normal conjunctiva, sclera anicteric CV: Regular rate and rhythm, b/l edema Pulm: mildly labored respirations on 3L NC, clear to auscultation bilaterally. ABD: Soft, nontender, nondistended Neuro: Normal speech, normal affect Problem List Severe sepsis without septic shock secondary to suspected pneumonia Acute hypercapnic respiratory failure acute on chronic COPD with exacerbation (on 3L NC chronically) Chronic systolic congestive heart failure Morbid Obesity Depression Plan: on bipap initially, weaned off. Currently on baseline oxygen. continue lasix nebs, inhalers Pulmonary input appreciated. Seen by cardiology who recommended echocardiogram. Echo is pending. continue home meds Clinically stable. VTE: lovenox Code: full Dispo: back to half-way.
[2022-03-29] MEDS: ATORVASTATIN 40 MG TAB PO SCH (20:33)
[2022-03-29] MEDS: ARIPiprazole 5 MG TAB PO SCH (20:33)
[2022-03-30] MEDS: ALBUTEROL 2.5 MG/3 ML NEB SOL NEB SCH ×4 (01:15→19:50)
[2022-03-30] MEDS: IPRATROPIUM BROM 0.5MG/2.5ML NEB SCH ×4 (01:15→19:50)
[2022-03-30] MEDS ORDERED: ZOLPIDEM TARTRATE 5 MG TABLET PO ONE (02:12)
[2022-03-30] MEDS: INSULIN -REGULAR HUMAN 50 UNIT/0.5 ML ML SQ SCH ×4 (07:30→21:01)
[2022-03-30] MEDS: DULERA 200/5 (MOMETASONE/FORMOTEROL) INHALER IH SCH ×2 (09:00→21:02)
[2022-03-30] MEDS: FUROSEMIDE 40 MG TABLET PO SCH (09:01)
[2022-03-30] MEDS: predniSONE 20 MG TAB PO SCH ×2 (09:01→21:01)
[2022-03-30] MEDS: ENOXAPARIN 40 MG/0.4 ML SQ SCH (09:01)
[2022-03-30] MEDS: SPIRONOLACTONE 25 MG TABLET PO SCH (09:01)
[2022-03-30] MEDS: ASPIRIN EC 81 MG TAB PO SCH (09:01)
[2022-03-30] MEDS: INSULIN GLARGINE 100 UNIT/ML SQ SCH (09:02)
[2022-03-30] MEDS: lisinopriL 5 MG TAB PO SCH (09:02)
[2022-03-30] MEDS: GABAPENTIN 300 MG CAP PO PRN ×2 (09:04→21:05)
--- NOTE | 2022-03-30 17:36 | P.PN ---
Subjective Date of Service: 03/30/22 Chief Complaint: Hypercapnic respiratory failure Patient has no new complaint. She denies shortness of breath. Physical Examination - Vital Signs Temperature: 98.1 F Blood Pressure: 94/53 Pulse: 77 Respirations: 18 Pulse Ox (%): 90 Assessment And Plan - Plan Physical exam GEN: Alert, oriented, NAD, morbidly obese HEENT: Normal conjunctiva, sclera anicteric CV: Regular rate and rhythm, b/l edema Pulm: mildly labored respirations on 3L NC, clear to auscultation bilaterally. ABD: Soft, nontender, nondistended Neuro: Normal speech, normal affect Problem List Severe sepsis without septic shock secondary to suspected pneumonia Acute hypercapnic respiratory failure acute on chronic COPD with exacerbation (on 3L NC chronically) Chronic systolic congestive heart failure Morbid Obesity Depression Plan: on bipap initially and later weaned off. She is now using CPAP at night. Currently on baseline oxygen. continue lasix nebs, inhalers Pulmonary input appreciated. Dr. Mcintyre recommend CPAP during sleep as outpatient Per Dr. Carter, echocardiogram was difficult to read but patient has systolic dysfunction. She is currently on NAJMA inhibitor and Aldactone. Blood pressure is borderline low and cannot add beta-surendra. Besides, she has been experiencing intermittent bradycardia continue home meds Clinically stable. Social service assisting with arrangement for CPAP in the intermediate. CPAP is anticipated to be in by tomorrow morning. VTE: lovenox Code: full Dispo: back to intermediate.
[2022-03-30] MEDS: ATORVASTATIN 40 MG TAB PO SCH (21:01)
[2022-03-30] MEDS: ARIPiprazole 5 MG TAB PO SCH (21:01)
[2022-03-31] MEDS: IPRATROPIUM BROM 0.5MG/2.5ML NEB SCH ×2 (01:00→07:48)
[2022-03-31] MEDS: ALBUTEROL 2.5 MG/3 ML NEB SOL NEB SCH ×2 (01:00→07:48)
[2022-03-31 06:03] LABS: Absolute Lymphocytes (CBC) 1.5 K/uL (0.7-4.9); Hematocrit 34.6 % (36.0-45.0); Lymphocytes % 14.1 % (15.3-44.8); MCV 87.3 fL (80-100); MPV 7.9 fL (7.6-11.3); RBC Red Blood Cell Count 3.97 M/uL (3.86-4.86)
[2022-03-31 06:15] LABS: Potassium 4.4 mmol/L (3.5-5.1)
--- NOTE | 2022-03-31 07:07 | ECHO ---
HEIGHT: 5 ft 8 in WEIGHT: 508 lb 2.648 oz DATE OF STUDY: 03/30/[address]: Jessee Carter MD 2-DIMENSIONAL: YES M.MODE: YES DOPPLER: YES COLOR FLOW: YES TDS: YES PORTABLE: YES DEFINITY: BUBBLE STUDY: DIAGNOSIS: CONGESTIVE HEART FAILURE CARDIAC HISTORY: CATHERIZATION: NO SURGERY: NO PROSTHETIC VALVE: NO PACEMAKER: NO MEASUREMENTS (cm) DIASTOLIC (NORMALS) SYSTOLIC (NORMALS) IVSd 1.0 (0.6-1.2) LA Diam 3.9 (1.9-4.0) LVEF 53% LVIDd 5.4 (3.5-5.7) LVIDs 3.9 (2.0-3.5) %FS 27% LVPWd 1.3 (0.6-1.2) Ao Diam 2.5 (2.0-3.7) 2 DIMENSIONAL ASSESSMENT: RIGHT ATRIUM: NORMAL LEFT ATRIUM: NORMAL RIGHT VENTRICLE: NORMAL LEFT VENTRICLE: LEFT VENTRICULAR HYPERTROPHY TRICUSPID VALVE: NORMAL MITRAL VALVE: NORMAL PULMONIC VALVE: NORMAL AORTIC VALVE: NORMAL PERICARDIAL EFFUSION: NONE AORTIC ROOT: NORMAL LEFT VENTRICULAR WALL MOTION: DIASTOLIC DYSFUNCTION DOPPLER/COLOR FLOW: DECREASED LEFT VENTRICULAR COMPLIANCE. COMMENTS: DECREASED LEFT VENTRICULAR COMPLIANCE. DIASTOLIC DYSFUNCTION. NORMAL EJECTION FRACTION. TECHNICALLY DIFFICULT STUDY. TECHNOLOGIST: SHAQ TORRES/ BILLY MINAYA
[2022-03-31] MEDS: INSULIN -REGULAR HUMAN 50 UNIT/0.5 ML ML SQ SCH (07:30)
[2022-03-31] MEDS: GABAPENTIN 300 MG CAP PO PRN (08:13)
[2022-03-31] MEDS: ENOXAPARIN 40 MG/0.4 ML SQ SCH (08:14)
[2022-03-31] MEDS: INSULIN GLARGINE 100 UNIT/ML SQ SCH (08:14)
[2022-03-31] MEDS: FUROSEMIDE 40 MG TABLET PO SCH (08:14)
[2022-03-31] MEDS: predniSONE 20 MG TAB PO SCH (08:15)
[2022-03-31] MEDS: DULERA 200/5 (MOMETASONE/FORMOTEROL) INHALER IH SCH (08:15)
[2022-03-31] MEDS: lisinopriL 5 MG TAB PO SCH (08:15)
[2022-03-31] MEDS: ASPIRIN EC 81 MG TAB PO SCH (08:15)
[2022-03-31] MEDS: SPIRONOLACTONE 25 MG TABLET PO SCH (08:15)
--- NOTE | 2022-03-31 08:36 | P.DS ---
Admission Date: 03/26/22 Discharge Date: 03/31/22 Disposition: TRANSFER TO HALF-WAY Discharge Condition: FAIR Reason for Admission: Hypercapnic respiratory failure Brief History of Present Illness: 47-year-old female history morbid obesity, COPD, diabetes mellitus type II who is a senior living resident for the last 2 years presented emergency department for shortness of breath and fever. Patient reported her room air saturations were around 82%. Her labs were significant for leukocytosis, moderate lactic acidosis, hyperglycemia, elevated BNP. ABG demonstrated hypercapnic respiratory failure. Patient with suspected pneumonia. She was treated with Rocephin and Zithromax in the emergency department placed on BiPAP for hypercapnic respiratory failure. Patient admitted for further management. Hospital Course: Diagnosis Severe sepsis without septic shock secondary to suspected pneumonia Acute hypercapnic respiratory failure acute on chronic COPD with exacerbation (on 3L NC chronically) Chronic systolic congestive heart failure Morbid Obesity Depression Plan: Patient admitted to the medical floor and treated with bronchodilators, IV Lasix and antibiotics on bipap initially and later weaned off. She has been using CPAP at night for obesity hypoventilation and suspected sleep apnea. She was initially requiring more oxygen but was later weaned off to her baseline 3 L by nasal cannula Seen by pulmonary-Dr. Mcintyre. Dr. Mcintyre recommend CPAP during sleep as outpatient Seen by cardiology for heart failure, Per Dr. Carter, echocardiogram was difficult to read but patient has systolic dysfunction. Echo reported EF of 53% She is on NAJMA inhibitor and Aldactone. Blood pressure is borderline low and cannot add beta-surendra. Besides, she has been experiencing intermittent bradycardia continued other home meds Clinically stable for discharge. CPAP has been arranged to be used in the senior living. Vital Signs/Physical Exam: Temp Pulse Resp BP Pulse Ox 96.9 F 59 19 93/54 L 92 03/31/22 03:53 03/31/22 08:15 03/31/22 03:53 03/31/22 08:15 03/31/22 03:53 General: In no apparent distress, Obese HEENT: Mucous membr. moist/pink Neck: JVD not distended Respiratory: Clear to auscultation bilaterally, Normal air movement Cardiovascular: No edema, Regular rate/rhythm, Normal S1 S2 Gastrointestinal: Soft and benign, Non-distended, No tenderness Musculoskeletal: No swelling Integumentary: No rashes Neurological: Other (No focal motor deficit.) Laboratory Data at Discharge: WBC 10.7 K/uL (4.3-10.9) 03/31/22 05:42 Hgb 11.2 g/dL (12.0-15.0) L 03/31/22 05:42 Hct 34.6 % (36.0-45.0) L 03/31/22 05:42 Plt Count 296 K/uL (152-406) 03/31/22 05:42 PT 12.1 SECONDS (9.5-12.5) 03/26/22 00:55 INR 1.10 03/26/22 00:55 Sodium 133 mmol/L (136-145) L 03/31/22 05:42 Potassium 4.4 mmol/L (3.5-5.1) 03/31/22 05:42 BUN 18 mg/dL (7-18) 03/31/22 05:42 Creatinine 0.75 mg/dL (0.55-1.3) 03/31/22 05:42 Glucose 212 mg/dL (74-106) H 03/31/22 05:42 Magnesium 1.9 mg/dL (1.8-2.4) 03/29/22 03:31 Total Bilirubin 0.2 mg/dL (0.2-1.0) 03/29/22 03:31 AST 7 U/L (15-37) L 03/29/22 03:31 ALT 23 U/L (12-78) 03/29/22 03:31 Alkaline Phosphatase 72 U/L (45-117) 03/29/22 03:31 Triglycerides 137 mg/dL (<150) 03/27/22 04:08 Cholesterol 115 mg/dL (<200) 03/27/22 04:08 HDL Cholesterol 41 mg/dL (40-60) 03/27/22 04:08 Cholesterol/HDL Ratio 2.80 03/27/22 04:08 Home Medications: Albuterol Sulfate [Proair Digihaler] 90 mcg IH TID 03/26/22 Aripiprazole [Abilify] 10 mg PO BEDTIME 03/26/22 Aspirin [Aspirin EC 81 MG] 81 mg PO DAILY 03/26/22 Atorvastatin Calcium 40 mg PO BEDTIME 03/26/22 Benztropine Mesylate 1 mg PO BEDTIME 03/26/22 Budesonide/Formoterol Fumarate [Symbicort 160-4.5 Mcg Inhaler] 2 puff IH BID 03/26/22 Docusate [Colace Cap*] 100 mg PO BID 03/26/22 Ergocalciferol (Vitamin D2) [Vitamin D2] 50,000 unit PO DAILY 03/26/22 Ferrous Sulfate 325 mg PO DAILY 03/26/22 Fexofenadine HCl [Jeri Allergy] 180 mg PO DAILY 03/26/22 Folic Acid 0.4 mg PO DAILY 03/26/22 Furosemide 80 mg PO BID 03/26/22 Gabapentin 300 mg PO TID 03/26/22 Lisinopril [Zestril] 5 mg PO DAILY 03/26/22 Metformin HCl [Glucophage*] 500 mg PO BID 03/26/22 Docusate [Colace Cap*] 100 mg PO DAILY PRN cap 03/31/22 Insulin Glargine,Hum.rec.anlog [Semglee] 35 unit SQ DAILY ml 03/31/22 Ipratropium Neb [Atrovent*] 0.5 mg NEB [id number] amp 03/31/22 Spironolactone [Aldactone*] 25 mg PO DAILY tab 03/31/22 predniSONE [Prednisone*] 10 mg PO BID #10 tab 03/31/22 Diet: AHA Followup: Baldemar Mcintyre MD [ACTIVE - CAN ADMIT] - 1-2 Weeks (Call for appointment.) NONE,NONE [Primary Care Provider] - 1-2 Weeks (call for appointment) Time spent managing pt's care (in minutes): 35
[2022-03-31 09:39] VITALS: O2SAT 94
[2022-03-31 13:00] VITALS: BP 119/60; TEMP 97.8
--- NOTE | 2022-03-31 19:59 | PN ---
Date of Progress Note: 03/28/2022 Ms. Sawyer has morbid obesity, COPD, chronic diastolic congestive heart failure, and asthma, came in w ith congestive heart failure exacerbation. She has improved on Lovenox, Lasix, inhalers Lipitor. Sh e is on antibiotics, lisinopril, insulin, and steroids. Echocardiogram showed an ejection fraction o f 53% with diastolic congestive heart failure. I think it would be good to start her on carvedilol. She is already on NAJMA inhibitor and Lasix. I do not think she is a candidate for Entresto. We will continue diuresing her and she can go back to the intermediate whenever it is okay with Dr. Angeles. FELICIANO/KIML Voice ID: [id number] Report ID: [id number]
== END 2022-03-31 12:06 | DRG 871 ==
LOC: ER 00:36 → ERHOLD 02:54 → 4TH 16:56
PROVIDERS: ADMIT Hospitalist; ATTEND Hospitalist
PROC: 5A09457 Assistance with Respiratory Ventilation, 24-96 Consecutive Hours, Continuous Positive Airway Pressure (ICD-10-PCS; principal; 2022-03-26)
DX: A41.9 Sepsis, unspecified organism (principal); J18.9 Pneumonia, unspecified organism; J96.22 Acute and chronic respiratory failure with hypercapnia; J96.21 Acute and chronic respiratory failure with hypoxia; I50.33 Acute on chronic diastolic (congestive) heart failure; J44.0 Chronic obstructive pulmonary disease with (acute) lower respiratory infection; J44.1 Chronic obstructive pulmonary disease with (acute) exacerbation; E66.2 Morbid (severe) obesity with alveolar hypoventilation; Z68.45 Body mass index [BMI] 70 or greater, adult; R65.20 Severe sepsis without septic shock; Z99.81 Dependence on supplemental oxygen; F32.A Depression, unspecified; E11.9 Type 2 diabetes mellitus without complications
CPT/HCPCS: 36415; 71045; 80048; 80053; 80061; 80076; 81003; 82805; 82947; 83036; 83605; 83735; 83880; 84443; 84484; 85025; 85610; 87040; 87070; 87081; 87086; 87088; 87804; 93005; 93306; 94010; 94640; 94660; 94760; 96374; 96375; 99284; J0456; J1650; J1815; J2920; J2930; J3535; J7030; J7050; J7512; U0003

== ENCOUNTER 2023-03-14 11:50 | Inpatient (IN) | payer OTHER ==
--- OUTSIDE RECORDS SUMMARY | 2023-03-14 12:07 | XMS REPORT | Continuity of Care Document ---
:1975 Author Organization [facility] t Address [address] [address] Care Team Providers Name Role Phone [email or web address] Attending Clinician Unavailable UNKNOWN Attending Clinician Unavailable KNOW, DOES_NOT Attending Clinician Unavailable Jojo Villalpando Attending Clinician [phone] Dennis Talley Attending Clinician [phone] [email or web address] Attending Clinician Unavailable PLIAR GOMEZ Attending Clinician Unavailable DO ELENA DOUGLAS Attending Clinician Unavailable DR VELMA COREY Attending Clinician Unavailable DR TIM GRESHAM Attending Clinician Unavailable JUSTO DICK Attending Clinician Unavailable GERARDO_[email or web address]_J Admitting Clinician Unavailable [email or web address]_[email or web address]_G Admitting Clinician Unavailable PILAR GOMEZ Admitting Clinician Unavailable DO ELENA DOUGLAS Admitting Clinician Unavailable DR VELMA COREY Admitting Clinician Unavailable DR TIM GRESHAM Admitting Clinician Unavailable JUSTO DICK Admitting Clinician Unavailable LAUREN PRESTON Admitting Clinician Unavailable Payers Payer Name Policy Type Policy Number Effective Date Expiration Date [facility] - [id number] 2021 [employer] - [place] 00:00:00 (MEDICAID REPLACEMENT - HMO) Problems Condition Condition Condition Status Onset Resolution Last Treating Co mments Source Name Details Category Date Date Treatment Clinician Date Pneumonia Pneumonia Problem Active [facility] 02-01 Medical 00:00: 00 Dyspnea at Dyspnea at Problem Active [facility] rest Rest 02-01 Medical 00:00: 00 Extreme Extreme Problem Active [facility] obesity Obesity 11-09 Medical with with 00:00: alveolar Alveolar 00 hypoventil Hypoventil ation ation Unable to Unable to Problem Active [facility] walk Walk 11-09 Medical 00:00: 00 Type 2 Type 2 Problem Active [facility] diabetes Diabetes 1-25 Medica l mellitus Mellitus 00:00: with with 00 peripheral Peripheral angiopathy Angiopathy Microalbum Microalbum Problem Active 2021-10 [facility] inuric inuric 1-04 Medical diabetic 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 00 y y Constipati Constipati Problem Active [facility] on on 07-11 Medical 00:00: 00 Microalbum Microalbum Problem Active [facility] inuria inuria 07-11 Medical 00:00: 00 Lives in a Lives in a Problem Active [facility] nursing Nursing 07-11 Medical home Home 00:00: 00 Need for Need for Problem Active [facility] personal Personal 07-11 Medica l care Care 00:00: assistance Assistance 00 Long-term Long-term Problem Active [facility] current Current 05-16 Medical use of Use of 00:00: insulin Insulin 00 Obstructiv Obstructiv Problem Active [facility] e sleep e Sleep 718 Medical apnea of Apnea of 00:00: adult Adult 00 Chronic Chronic Problem Active [facility] obstructiv Obstructiv -26 Me dical e lung e Lung 00:00: disease Disease 00 Moderate Moderate Problem Active [facility] protein-ca Protein-ca 6-05 Me dical jose francisco jose francisco 00:00: malnutriti Malnutriti 00 on (weight on (Weight for age for Age 60-74 60-74 percent of Percent of standard) Standard) Folic acid Folic Acid Problem Active [facility] deficiency Deficiency 6-05 Me dical 00:00: 00 Vitamin D Vitamin D Problem Active [facility] via deficiency Deficiency 6-05 Me dical 00:00: 00 Peripheral Peripheral Problem Active [facility] angiopathy Angiopathy 6-04 Me dical due to Due to 00:00: diabetes Diabetes 00 mellitus Mellitus Candidal Candidal Problem Active [facility] intertrigo Intertrigo 5-11 Me dical 00:00: 00 Anemia of Anemia of Problem Active [facility] chronic Chronic 5-11 Medical disease Disease 00:00: 00 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 00:00: 00 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 ciency 4-20 Medical disorder Disorder 00:00: 00 Body mass Body Mass Problem Active [facility] index 40+ Index 40+ 4-12 Medi jack - severely - Severely 00:00: obese Obese 00 Type 2 Type 2 Problem Active [facility] diabetes Diabetes 4-11 Medica l mellitus Mellitus 00:00: 00 Hyperlipid Hyperlipid Problem Active [facility] emia emia 4-11 Medical 00:00: 00 Morbid Morbid Problem Active [facility] obesity Obesity 4-11 Medical 00:00: 00 Bipolar Bipolar Problem Active [facility] disorder Disorder 4-11 Medica l 00:00: 00 Hypertensi Hypertensi Problem Active [facility] ve heart ve Heart 4-11 Medica l disease Disease 00:00: with with 00 congestive Congestive heart Heart failure Failure Bed-ridden Bed-ridden Problem Active [facility] 4-11 Medical 00:00: 00 Hypercapni Hypercapni Problem Active [facility] (LUF/LI V/SA) Acute Acute Problem Active [facility] respirator respirator 4-12 Lisa kes y failure y failure 00:00: Vishnu dot with with 00 l hypoxia hypoxia (LUF/LI V/SA) Venous Venous Problem Active [facility] stasis stasis [facility]11 [facility] ulceration ulceration 00:00: Me moria 00 l (LUF/LI V/SA) Cellulitis Cellulitis Problem Active 2016-[address] [facility] (LUF/LI V/SA) Diabetic Diabetic Problem Active [facility] peripheral Peripheral Me dical neuropathy Neuropathy 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 Immune Medical deficiency Deficiency disorder Disorder Hypercoagu Hypercoagu Problem Active [facility] lability lability Medica l state State Allergic Allergic Problem Active [facility] rhinitis Rhinitis Medica l Double Double Problem Active [facility] incontinen Incontinen Me dical ce ce Hypertensi Hypertensi Problem Active [facility] disorder disorder Memori a l (LUF/LI V/SA) Venous Venous Problem Active [facility] varices varices [facility] (LUF/LI V/SA) Deep Deep Problem Active [facility] venous venous [facility] thrombosis thrombosis Me moria of lower of lower l extremity extremity (LUF /LI (disorder) (disorder) V/ SA) Ligation Ligation Problem [facility] fallopian fallopian Vishnu dot tube tube l (LUF/LI V/SA) Cholecyste Cholecyste Problem Active [facility] ctomy ctomy [facility] (LUF/LI V/SA) Allergies, Adverse Reactions, Alerts Allergy Allergy Status Severity Reaction(s) Onset Inactive Treating Comm ents Source Name Type Date Date Clinician Codeine DA Active Unknown [facility] (LUF/LI V/SA) adhesive DA Active Unknown [facility] tape [facility] (LUF/LI V/SA) Cephalex DA Active Unknown [facility] (LUF/LI V/SA) Tylenol DA Active Unknown [facility] (LUF/LI V/SA) ADHESIVE Allergy Active [facility] TAPE to Medical substanc e Cephalex Allergy Active [facility] in to Medical substanc e Codeine Allergy Active [facility] to Medical substanc e Predniso Allergy Active [facility] ne to Medical substanc e Tylenol Allergy Active [facility] to Medical substanc e Social History Smoking Status Start Date Stop Date Source Former Smoker [facility] Never [facility] (LUF/[place]/SA) Medications Ordered Filled Start Stop Current Ordering Indication Dosage Frequency Signature Comments Components Source Medication Medication Date Date Medication? Clinician (SIG) Name Name ProAir HFA ProAir HFA No 2puff(s Q4H ProAir HFA [facility] 90 90 ) 90 Medical mcg/actuati mcg/actuati mcg/actuat on aerosol on aerosol ion inhaler inhaler aerosol Inhale 2 Inhale 2 inhaler puffs every puffs every Inhale 2 4 hours by 4 hours by puffs inhalation inhalation every 4 route as route as hours by needed. needed. inhalation route as needed. sertraline sertraline No sertraline [facility] 100 mg 100 mg 100 mg Medical tablet Take tablet Take tablet 1 tablet 1 tablet Take 1 every day every day tablet by oral by oral every day route for route for by oral 30 days. 30 days. route for 30 days. spironolact spironolact No spironolac [facility] one 25 mg one 25 mg tone 25 mg Medical tablet Take tablet Take tablet 1 tablet 1 tablet Take 1 every day every day tablet by oral by oral every day route. route. by oral route. Tums Extra Tums Extra No 1 BID Tums Extra [facility] Strength Strength Strength Med ical Smoothies Smoothies Smoothies 300 mg (750 300 mg (750 300 mg mg) mg) (750 mg) chewable chewable chewable tablet Take tablet Take tablet 1 tablet 1 tablet Take 1 twice a day twice a day tablet by oral by oral twice a route. route. day by oral route. zinc oxide zinc oxide No zinc oxide [facility] topical topical topical Medica l ointment ointment ointment Apply to Apply to Apply to affected affected affected skin TID skin TID skin TID Jeri Jeri No 1 Q1D Jeri [facility] Allergy 180 Allergy 180 Allergy Medical mg tablet mg tablet 180 mg Take 1 Take 1 tablet tablet tablet Take 1 every day every day tablet by oral by oral every day route. route. by oral route. aripiprazol aripiprazol No aripiprazo [facility] e 10 mg e 10 mg le 10 mg Medic al tablet Take tablet Take tablet 1 tablet 1 tablet Take 1 every day every day tablet by oral by oral every day route at route at by oral bedtime for bedtime for route at 30 days. 30 days. bedtime for 30 days. aspirin 81 aspirin 81 No 1 Q1D aspirin 81 [facility] mg mg mg Medical tablet,kit tablet,kit tablet,del yed release yed release ayed Take 1 Take 1 release tablet tablet Take 1 every day every day tablet by oral by oral every day route. route. by oral route. atorvastati atorvastati No atorvastat [facility] n 40 mg n 40 mg in 40 mg Medic al tablet Take tablet Take tablet 1 tablet 1 tablet Take 1 every day every day tablet by oral by oral every day route at route at by oral bedtime for bedtime for route at 30 days. 30 days. bedtime for 30 days. benztropine benztropine No benztropin [facility] 1 mg tablet 1 mg tablet e 1 mg Medical Take 1 mg Take 1 mg tablet every day every day Take 1 mg by oral by oral every day route at route at by oral bedtime for bedtime for route at 30 days. 30 days. bedtime for 30 days. budesonide- budesonide- No budesonide [facility] formoterol formoterol -formotero Medical HFA 160 HFA 160 l HFA 160 mcg-4.5 mcg-4.5 mcg-4.5 mcg/actuati mcg/actuati mcg/actuat on aerosol on aerosol ion inhaler inhaler aerosol Inhale 2 Inhale 2 inhaler puffs twice puffs twice Inhale 2 a day by a day by puffs inhalation inhalation twice a route. route. day by inhalation route. Colace 100 Colace 100 No 1capsul Q1D Colace 100 [facility] mg capsule mg capsule e(s) mg capsule Medical Take 1 Take 1 Take 1 capsule capsule capsule every day every day every day by oral by oral by oral route. route. route. ergocalcife ergocalcife No ergocalcif [facility] rol rol kristen Medical (vitamin (vitamin (vitamin D2) 1,250 D2) 1,250 D2) 1,250 mcg (50,000 mcg (50,000 mcg unit) unit) (50,000 capsule capsule unit) Take 1 Take 1 capsule capsule capsule Take 1 every week every week capsule by oral by oral every week route. route. by oral route. ferrous ferrous No 1 Q1D ferrous [facility] sulfate 324 sulfate 324 sulfate Medical mg (65 mg mg (65 mg 324 mg (65 iron) iron) mg iron) tablet,kit tablet,kit tablet,del yed release yed release ayed Take 1 Take 1 release tablet tablet Take 1 every day every day tablet by oral by oral every day route. route. by oral route. folic acid folic acid No 1 Q1D folic acid [facility] 400 mcg 400 mcg 400 mcg Medica l tablet Take tablet Take tablet 1 tablet 1 tablet Take 1 every day every day tablet by oral by oral every day route. route. by oral route. furosemide furosemide No furosemide [facility] 80 mg 80 mg 80 mg Medical tablet Take tablet Take tablet 1 tablet 1 tablet Take 1 every day every day tablet by oral by oral every day route for route for by oral 30 days. 30 days. route for 30 days. gabapentin gabapentin No gabapentin [facility] 300 mg 300 mg 300 mg Medical capsule capsule capsule Take 1 Take 1 Take 1 capsule 3 capsule 3 capsule 3 times a day times a day times a by oral by oral day by route for route for oral route 30 days. 30 days. for 30 days. ipratropium ipratropium No 2.5mL Q6H ipratropiu [facility] bromide bromide m bromide [facility] jack 0.02 % 0.02 % 0.02 % solution solution solution for for for inhalation inhalation inhalation Inhale 2.5 Inhale 2.5 Inhale 2.5 mL every 6 mL every 6 mL every 6 hours by hours by hours by inhalation inhalation inhalation route. route. route. lactulose lactulose No lactulose [facility] 10 gram/15 10 gram/15 10 gram/15 Medical mL oral mL oral mL oral solution solution solution Lantus Lantus No 39unit( Q1D Lantus [facility] U-100 U-100 s) U-100 Medical Insulin 100 Insulin 100 Insulin unit/mL unit/mL 100 subcutaneou subcutaneou unit/mL s solution s solution subcutaneo Inject 39 Inject 39 us units every units every solution day by day by Inject 39 subcutaneou subcutaneou units s route. s route. every day by subcutaneo us route. lisinopril lisinopril No lisinopril [facility] 5 mg tablet 5 mg tablet 5 mg M edical Take 1 Take 1 tablet tablet tablet Take 1 every day every day tablet by oral by oral every day route for route for by oral 30 days. 30 days. route for 30 days. metformin metformin No metformin [facility] 500 mg 500 mg 500 mg Medical tablet Take tablet Take tablet 1 tablet 1 tablet Take 1 twice a day twice a day tablet by oral by oral twice a route for route for day by 30 days. 30 days. oral route for 30 days. Nystop Nystop No Nystop [facility] 100,000 100,000 100,000 Medica l unit/gram unit/gram unit/gram topical topical topical powder powder powder ProAir HFA ProAir HFA No 2puff(s Q4H ProAir HFA [facility] 90 90 ) 90 Medical mcg/actuati mcg/actuati mcg/actuat on aerosol on aerosol ion inhaler inhaler aerosol Inhale 2 Inhale 2 inhaler puffs every puffs every Inhale 2 4 hours by 4 hours by puffs inhalation inhalation every 4 route as route as hours by needed. needed. inhalation route as needed. sertraline sertraline No sertraline [facility] 100 mg 100 mg 100 mg Medical tablet Take tablet Take tablet 1 tablet 1 tablet Take 1 every day every day tablet by oral by oral every day route for route for by oral 30 days. 30 days. route for 30 days. spironolact spironolact No spironolac [facility] one 25 mg one 25 mg tone 25 mg Medical tablet Take tablet Take tablet 1 tablet 1 tablet Take 1 every day every day tablet by oral by oral every day route. route. by oral route. Tums Extra Tums Extra No 1 BID Tums Extra [facility] Strength Strength Strength Med ical Smoothies Smoothies Smoothies 300 mg (750 300 mg (750 300 mg mg) mg) (750 mg) chewable chewable chewable tablet Take tablet Take tablet 1 tablet 1 tablet Take 1 twice a day twice a day tablet by oral by oral twice a route. route. day by oral route. zinc oxide zinc oxide No zinc oxide [facility] topical topical topical Medica l ointment ointment ointment Apply to Apply to Apply to affected affected affected skin TID skin TID skin TID Jeri Jeri No 1 Q1D Jeri [facility] Allergy 180 Allergy 180 Allergy Medical mg tablet mg tablet 180 mg Take 1 Take 1 tablet tablet tablet Take 1 every day every day tablet by oral by oral every day route. route. by oral route. aripiprazol aripiprazol No 1 Q1D aripiprazo [facility] e 10 mg e 10 mg le 10 mg Medic al tablet Take tablet Take tablet 1 tablet 1 tablet Take 1 every day every day tablet by oral by oral every day route at route at by oral bedtime for bedtime for route at 30 days. 30 days. bedtime for 30 days. aspirin 81 aspirin 81 No 1 Q1D aspirin 81 [facility] mg mg mg Medical tablet,kit tablet,kit tablet,del yed release yed release ayed Take 1 Take 1 release tablet tablet Take 1 every day every day tablet by oral by oral every day route. route. by oral route. atorvastati atorvastati No 1 Q1D atorvastat [facility] n 40 mg n 40 mg in 40 mg Medic al tablet Take tablet Take tablet 1 tablet 1 tablet Take 1 every day every day tablet by oral by oral every day route at route at by oral bedtime for bedtime for route at 30 days. 30 days. bedtime for 30 days. benztropine benztropine No 1mg Q1D benztropin [facility] 1 mg tablet 1 mg tablet e 1 mg Medical Take 1 mg Take 1 mg tablet every day every day Take 1 mg by oral by oral every day route at route at by oral bedtime for bedtime for route at 30 days. 30 days. bedtime for 30 days. Colace 100 Colace 100 No 1capsul Q1D Colace 100 [facility] mg capsule mg capsule e(s) mg capsule Medical Take 1 Take 1 Take 1 capsule capsule capsule every day every day every day by oral by oral by oral route. route. route. furosemide furosemide No 1 Q1D furosemide [facility] 80 mg 80 mg 80 mg Medical tablet Take tablet Take tablet 1 tablet 1 tablet Take 1 every day every day tablet by oral by oral every day route for route for by oral 30 days. 30 days. route for 30 days. gabapentin gabapentin No 1capsul TID gabapentin [facility] 300 mg 300 mg e(s) 300 mg Medical capsule capsule capsule Take 1 Take 1 Take 1 capsule 3 capsule 3 capsule 3 times a day times a day times a by oral by oral day by route for route for oral route 30 days. 30 days. for 30 days. lisinopril lisinopril No 1 Q1D lisinopril [facility] 5 mg tablet 5 mg tablet 5 mg M edical Take 1 Take 1 tablet tablet tablet Take 1 every day every day tablet by oral by oral every day route for route for by oral 30 days. 30 days. route for 30 days. metformin metformin No 1 BID metformin [facility] 500 mg 500 mg 500 mg Medical tablet Take tablet Take tablet 1 tablet 1 tablet Take 1 twice a day twice a day tablet by oral by oral twice a route for route for day by 30 days. 30 days. oral route for 30 days. ProAir HFA ProAir HFA No 2puff(s Q4H ProAir HFA [facility] 90 90 ) 90 Medical mcg/actuati mcg/actuati mcg/actuat on aerosol on aerosol ion inhaler inhaler aerosol Inhale 2 Inhale 2 inhaler puffs every puffs every Inhale 2 4 hours by 4 hours by puffs inhalation inhalation every 4 route as route as hours by needed. needed. inhalation route as needed. sertraline sertraline No 1 Q1D sertraline [facility] 100 mg 100 mg 100 mg Medical tablet Take tablet Take tablet 1 tablet 1 tablet Take 1 every day every day tablet by oral by oral every day route for route for by oral 30 days. 30 days. route for 30 days. Symbicort Symbicort No 2puff(s BID Symbicort [facility] 160 mcg-4.5 160 mcg-4.5 ) 160 M edical mcg/actuati mcg/actuati mcg-4.5 on HFA on HFA mcg/actuat aerosol aerosol ion HFA inhaler inhaler aerosol Inhale 2 Inhale 2 inhaler puffs twice puffs twice Inhale 2 a day by a day by puffs inhalation inhalation twice a route. route. day by inhalation route. Tums Extra Tums Extra No 1 BID Tums Extra [facility] Strength Strength Strength Med ical Smoothies Smoothies Smoothies 300 mg (750 300 mg (750 300 mg mg) mg) (750 mg) chewable chewable chewable tablet Take tablet Take tablet 1 tablet 1 tablet Take 1 twice a day twice a day tablet by oral by oral twice a route. route. day by oral route. zinc oxide zinc oxide No 1applic Q8H zinc oxide [facility] 10 % 10 % ation(s 10 % Medical topical topical ) topical ointment ointment ointment Apply 1 Apply 1 Apply 1 application application applicatio every 8 every 8 n every 8 hours by hours by hours by topical topical topical route. route. route. Jeri Jeri No 1 Q1D Jeri [facility] Allergy 180 Allergy 180 Allergy Medical mg tablet mg tablet 180 mg Take 1 Take 1 tablet tablet tablet Take 1 every day every day tablet by oral by oral every day route. route. by oral route. aripiprazol aripiprazol No 1 Q1D aripiprazo [facility] e 10 mg e 10 mg le 10 mg Medic al tablet Take tablet Take tablet 1 tablet 1 tablet Take 1 every day every day tablet by oral by oral every day route at route at by oral bedtime for bedtime for route at 30 days. 30 days. bedtime for 30 days. aspirin 81 aspirin 81 No 1 Q1D aspirin 81 [facility] mg mg mg Medical tablet,kit tablet,kit tablet,del yed release yed release ayed Take 1 Take 1 release tablet tablet Take 1 every day every day tablet by oral by oral every day route. route. by oral route. atorvastati atorvastati No 1 Q1D atorvastat [facility] n 40 mg n 40 mg in 40 mg Medic al tablet Take tablet Take tablet 1 tablet 1 tablet Take 1 every day every day tablet by oral by oral every day route at route at by oral bedtime for bedtime for route at 30 days. 30 days. bedtime for 30 days. benztropine benztropine No 1mg Q1D benztropin [facility] 1 mg tablet 1 mg tablet e 1 mg Medical Take 1 mg Take 1 mg tablet every day every day Take 1 mg by oral by oral every day route at route at by oral bedtime for bedtime for route at 30 days. 30 days. bedtime for 30 days. Colace 100 Colace 100 No 1capsul Q1D Colace 100 [facility] mg capsule mg capsule e(s) mg capsule Medical Take 1 Take 1 Take 1 capsule capsule capsule every day every day every day by oral by oral by oral route. route. route. furosemide furosemide No 1 Q1D furosemide [facility] 80 mg 80 mg 80 mg Medical tablet Take tablet Take tablet 1 tablet 1 tablet Take 1 every day every day tablet by oral by oral every day route for route for by oral 30 days. 30 days. route for 30 days. gabapentin gabapentin No 1capsul TID gabapentin [facility] 300 mg 300 mg e(s) 300 mg Medical capsule capsule capsule Take 1 Take 1 Take 1 capsule 3 capsule 3 capsule 3 times a day times a day times a by oral by oral day by route for route for oral route 30 days. 30 days. for 30 days. lisinopril lisinopril No 1 Q1D lisinopril [facility] 5 mg tablet 5 mg tablet 5 mg M edical Take 1 Take 1 tablet tablet tablet Take 1 every day every day tablet by oral by oral every day route for route for by oral 30 days. 30 days. route for 30 days. metformin metformin No 1 BID metformin [facility] 500 mg 500 mg 500 mg Medical tablet Take tablet Take tablet 1 tablet 1 tablet Take 1 twice a day twice a day tablet by oral by oral twice a route for route for day by 30 days. 30 days. oral route for 30 days. ProAir HFA ProAir HFA No 2puff(s Q4H ProAir HFA [facility] 90 90 ) 90 Medical mcg/actuati mcg/actuati mcg/actuat on aerosol on aerosol ion inhaler inhaler aerosol Inhale 2 Inhale 2 inhaler puffs every puffs every Inhale 2 4 hours by 4 hours by puffs inhalation inhalation every 4 route as route as hours by needed. needed. inhalation route as needed. sertraline sertraline No 1 Q1D sertraline [facility] 100 mg 100 mg 100 mg Medical tablet Take tablet Take tablet 1 tablet 1 tablet Take 1 every day every day tablet by oral by oral every day route for route for by oral 30 days. 30 days. route for 30 days. Symbicort Symbicort No 2puff(s BID Symbicort [facility] 160 mcg-4.5 160 mcg-4.5 ) 160 M edical mcg/actuati mcg/actuati mcg-4.5 on HFA on HFA mcg/actuat aerosol aerosol ion HFA inhaler inhaler aerosol Inhale 2 Inhale 2 inhaler puffs twice puffs twice Inhale 2 a day by a day by puffs inhalation inhalation twice a route. route. day by inhalation route. Tums Extra Tums Extra No 1 BID Tums Extra [facility] Strength Strength Strength Med ical Smoothies Smoothies Smoothies 300 mg (750 300 mg (750 300 mg mg) mg) (750 mg) chewable chewable chewable tablet Take tablet Take tablet 1 tablet 1 tablet Take 1 twice a day twice a day tablet by oral by oral twice a route. route. day by oral route. zinc oxide zinc oxide No 1applic Q8H zinc oxide [facility] 10 % 10 % ation(s 10 % Medical topical topical ) topical ointment ointment ointment Apply 1 Apply 1 Apply 1 application application applicatio every 8 every 8 n every 8 hours by hours by hours by topical topical topical route. route. route. Jeri Jeri No 1 Q1D Jeri [facility] Allergy 180 Allergy 180 Allergy Medical mg tablet mg tablet 180 mg Take 1 Take 1 tablet tablet tablet Take 1 every day every day tablet by oral by oral every day route. route. by oral route. aripiprazol aripiprazol No aripiprazo [facility] e 10 mg e 10 mg le 10 mg Medic al tablet Take tablet Take tablet 1 tablet 1 tablet Take 1 every day every day tablet by oral by oral every day route at route at by oral bedtime for bedtime for route at 30 days. 30 days. bedtime for 30 days. Albuterol Albuterol Yes [address] [facility] HFA Inhaler HFA Inhaler every 6 [facility] 90 90 hours as [facility] mcg/actuati mcg/actuati needed. l on on (as needed (LUF/LI for V/SA) shortness of breath or wheezing) aspirin 81 aspirin 81 No 1 Q1D aspirin 81 [facility] mg mg mg Medical tablet,kit tablet,kit tablet,del yed release yed release ayed Take 1 Take 1 release tablet tablet Take 1 every day every day tablet by oral by oral every day route. route. by oral route. atorvastati atorvastati No atorvastat [facility] n 40 mg n 40 mg in 40 mg Medic al tablet Take tablet Take tablet 1 tablet 1 tablet Take 1 every day every day tablet by oral by oral every day route at route at by oral bedtime for bedtime for route at 30 days. 30 days. bedtime for 30 days. benztropine benztropine No benztropin [facility] 1 mg tablet 1 mg tablet e 1 mg Medical Take 1 mg Take 1 mg tablet every day every day Take 1 mg by oral by oral every day route at route at by oral bedtime for bedtime for route at 30 days. 30 days. bedtime for 30 days. budesonide- budesonide- No budesonide [facility] formoterol formoterol -formotero [facility] HFA 160 HFA 160 l HFA 160 mcg-4.5 mcg-4.5 mcg-4.5 mcg/actuati mcg/actuati mcg/actuat on aerosol on aerosol ion inhaler inhaler aerosol Inhale 2 Inhale 2 inhaler puffs twice puffs twice Inhale 2 a day by a day by puffs inhalation inhalation twice a route. route. day by inhalation route. Colace 100 Colace 100 No 1capsul Q1D Colace 100 [facility] mg capsule mg capsule e(s) mg capsule Medical Take 1 Take 1 Take 1 capsule capsule capsule every day every day every day by oral by oral by oral route. route. route. furosemide furosemide No furosemide [facility] 80 mg 80 mg 80 mg [facility] tablet Take tablet Take tablet 1 tablet 1 tablet Take 1 every day every day tablet by oral by oral every day route for route for by oral 30 days. 30 days. route for 30 days. gabapentin gabapentin No gabapentin [facility] 300 mg 300 mg 300 mg [facility] capsule capsule capsule Take 1 Take 1 Take 1 capsule 3 capsule 3 capsule 3 times a day times a day times a by oral by oral day by route for route for oral route 30 days. 30 days. for 30 days. lisinopril lisinopril No lisinopril [facility] 5 mg tablet 5 mg tablet 5 mg M edical Take 1 Take 1 tablet tablet tablet Take 1 every day every day tablet by oral by oral every day route for route for by oral 30 days. 30 days. route for 30 days. metformin metformin No metformin [facility] 500 mg 500 mg 500 mg [facility] tablet Take tablet Take tablet 1 tablet 1 tablet Take 1 twice a day twice a day tablet by oral by oral twice a route for route for day by 30 days. 30 days. oral route for 30 days. Nystop Nystop No Nystop [facility] 100,000 100,000 100,000 [facility] unit/gram unit/gram unit/gram topical topical topical powder powder powder aripiprazol aripiprazol Yes 10mg 1xD orally [facility] e 10 MG e 10 MG daily [facility] Tablet Oral Tablet [facility] (LUF/LI V/SA) ProAir HFA ProAir HFA No 2puff(s Q4H ProAir HFA [facility] 90 90 ) 90 Medical mcg/actuati mcg/actuati mcg/actuat on aerosol on aerosol ion inhaler inhaler aerosol Inhale 2 Inhale 2 inhaler puffs every puffs every Inhale 2 4 hours by 4 hours by puffs inhalation inhalation every 4 route as route as hours by needed. needed. inhalation route as needed. sertraline sertraline No sertraline [facility] 100 mg 100 mg 100 mg [facility] tablet Take tablet Take tablet 1 tablet 1 tablet Take 1 every day every day tablet by oral by oral every day route for route for by oral 30 days. 30 days. route for 30 days. Tums Extra Tums Extra No 1 BID Tums Extra [facility] Strength Strength Strength Med ical Smoothies Smoothies Smoothies 300 mg (750 300 mg (750 300 mg mg) mg) (750 mg) chewable chewable chewable tablet Take tablet Take tablet 1 tablet 1 tablet Take 1 twice a day twice a day tablet by oral by oral twice a route. route. day by oral route. zinc oxide zinc oxide No zinc oxide [facility] topical topical topical Medica l ointment ointment ointment Apply to Apply to Apply to affected affected affected skin TID skin TID skin TID [facility]i Jeri No 1 Q1D Jeri [facility] Allergy 180 Allergy 180 Allergy [facility] mg tablet mg tablet 180 mg Take 1 Take 1 tablet tablet tablet Take 1 every day every day tablet by oral by oral every day route. route. by oral route. aripiprazol aripiprazol No aripiprazo [facility] e 10 mg e 10 mg le 10 mg Medic al tablet Take tablet Take tablet 1 tablet 1 tablet Take 1 every day every day tablet by oral by oral every day route at route at by oral bedtime for bedtime for route at 30 days. 30 days. bedtime for 30 days. aspirin 81 aspirin 81 No 1 Q1D aspirin 81 [facility] mg mg mg Medical tablet,kit tablet,kit tablet,del yed release yed release ayed Take 1 Take 1 release tablet tablet Take 1 every day every day tablet by oral by oral every day route. route. by oral route. atorvastati atorvastati No atorvastat [facility] n 40 mg n 40 mg in 40 mg [facility] al tablet Take tablet Take tablet 1 tablet 1 tablet Take 1 every day every day tablet by oral by oral every day route at route at by oral bedtime for bedtime for route at 30 days. 30 days. bedtime for 30 days. benztropine benztropine No benztropin [facility] 1 mg tablet 1 mg tablet e 1 mg Medical Take 1 mg Take 1 mg tablet every day every day Take 1 mg by oral by oral every day route at route at by oral bedtime for bedtime for route at 30 days. 30 days. bedtime for 30 days. budesonide- budesonide- No budesonide [facility] formoterol formoterol -formotero [facility] HFA 160 HFA 160 l HFA 160 mcg-4.5 mcg-4.5 mcg-4.5 mcg/actuati mcg/actuati mcg/actuat on aerosol on aerosol ion inhaler inhaler aerosol Inhale 2 Inhale 2 inhaler puffs twice puffs twice Inhale 2 a day by a day by puffs inhalation inhalation twice a route. route. day by inhalation route. Aspirin Aspirin Yes 81mg 1xD orally [facility] daily [facility] (LUF/LI V/SA) Colace 100 Colace 100 No 1capsul Q1D Colace 100 [facility] mg capsule mg capsule e(s) mg capsule Medical Take 1 Take 1 Take 1 capsule capsule capsule every day every day every day by oral by oral by oral route. route. route. furosemide furosemide No furosemide [facility] 80 mg 80 mg 80 mg [facility] tablet Take tablet Take tablet 1 tablet 1 tablet Take 1 every day every day tablet by oral by oral every day route for route for by oral 30 days. 30 days. route for 30 days. gabapentin gabapentin No gabapentin [facility] 300 mg 300 mg 300 mg [facility] capsule capsule capsule Take 1 Take 1 Take 1 capsule 3 capsule 3 capsule 3 times a day times a day times a by oral by oral day by route for route for oral route 30 days. 30 days. for 30 days. lisinopril lisinopril No lisinopril [facility] 5 mg tablet 5 mg tablet 5 mg M edical Take 1 Take 1 tablet tablet tablet Take 1 every day every day tablet by oral by oral every day route for route for by oral 30 days. 30 days. route for 30 days. metformin metformin No metformin [facility] 500 mg 500 mg 500 mg Medical tablet Take tablet Take tablet 1 tablet 1 tablet Take 1 twice a day twice a day tablet by oral by oral twice a route for route for day by 30 days. 30 days. oral route for 30 days. Nystop Nystop No Nystop [facility] 100,000 100,000 100,000 Medica l unit/gram unit/gram unit/gram topical topical topical powder powder powder ProAir HFA ProAir HFA No 2puff(s Q4H ProAir HFA [facility] 90 90 ) 90 Medical mcg/actuati mcg/actuati mcg/actuat on aerosol on aerosol ion inhaler inhaler aerosol Inhale 2 Inhale 2 inhaler puffs every puffs every Inhale 2 4 hours by 4 hours by puffs inhalation inhalation every 4 route as route as hours by needed. needed. inhalation route as needed. sertraline sertraline No sertraline [facility] 100 mg 100 mg 100 mg [facility] tablet Take tablet Take tablet 1 tablet 1 tablet Take 1 every day every day tablet by oral by oral every day route for route for by oral 30 days. 30 days. route for 30 days. Tums Extra Tums Extra No 1 BID Tums Extra [facility] Strength Strength Strength Med ical Smoothies Smoothies Smoothies 300 mg (750 300 mg (750 300 mg mg) mg) (750 mg) chewable chewable chewable tablet Take tablet Take tablet 1 tablet 1 tablet Take 1 twice a day twice a day tablet by oral by oral twice a route. route. day by oral route. zinc oxide zinc oxide No zinc oxide [facility] topical topical topical Medica l ointment ointment ointment Apply to Apply to Apply to affected affected affected skin TID skin TID skin TID atorvastati atorvastati Yes 40mg 1xD orally [facility] n 40 MG n 40 MG daily [facility] Tablet Oral Tablet [facility] (LUF/LI V/SA) Jeri Jeri No 1 Q1D Jeri [facility] Allergy 180 Allergy 180 All[facility] mg tablet mg tablet 180 mg Take 1 Take 1 tablet tablet tablet Take 1 every day every day tablet by oral by oral every day route. route. by oral route. aripiprazol aripiprazol No aripiprazo [facility] e 10 mg e 10 mg le 10 mg Medic al tablet Take tablet Take tablet 1 tablet 1 tablet Take 1 every day every day tablet by oral by oral every day route at route at by oral bedtime for bedtime for route at 30 days. 30 days. bedtime for 30 days. aspirin 81 aspirin 81 No 1 Q1D aspirin 81 [facility] mg mg mg Medical tablet,kit tablet,kit tablet,del yed release yed release ayed Take 1 Take 1 release tablet tablet Take 1 every day every day tablet by oral by oral every day route. route. by oral route. atorvastati atorvastati No atorvastat [facility] n 40 mg n 40 mg in 40 mg Medic al tablet Take tablet Take tablet 1 tablet 1 tablet Take 1 every day every day tablet by oral by oral every day route at route at by oral bedtime for bedtime for route at 30 days. 30 days. bedtime for 30 days. benztropine benztropine No benztropin [facility] 1 mg tablet 1 mg tablet e 1 mg Medical Take 1 mg Take 1 mg tablet every day every day Take 1 mg by oral by oral every day route at route at by oral bedtime for bedtime for route at 30 days. 30 days. bedtime for 30 days. budesonide- budesonide- No budesonide [facility] formoterol formoterol -formotero [facility] HFA 160 HFA 160 l HFA 160 mcg-4.5 mcg-4.5 mcg-4.5 mcg/actuati mcg/actuati mcg/actuat on aerosol on aerosol ion inhaler inhaler aerosol Inhale 2 Inhale 2 inhaler puffs twice puffs twice Inhale 2 a day by a day by puffs inhalation inhalation twice a route. route. day by inhalation route. Colace 100 Colace 100 No 1capsul Q1D Colace 100 [facility] mg capsule mg capsule e(s) mg capsule Medical Take 1 Take 1 Take 1 capsule capsule capsule every day every day every day by oral by oral by oral route. route. route. ergocalcife ergocalcife No 1capsul Q1W ergocalcif [facility] rol rol e(s) [facility] (vitamin (vitamin (vitamin D2) 1,250 D2) 1,250 D2) 1,250 mcg (50,000 mcg (50,000 mcg unit) unit) (50,000 capsule capsule unit) Take 1 Take 1 capsule capsule capsule Take 1 every week every week capsule by oral by oral every week route. route. by oral route. folic acid folic acid No 1 Q1D folic acid [facility] 1 mg tablet 1 mg tablet 1 mg M edical Take 1 Take 1 tablet tablet tablet Take 1 every day every day tablet by oral by oral every day route. route. by oral route. furosemide furosemide No furosemide [facility] 80 mg 80 mg 80 mg [facility] tablet Take tablet Take tablet 1 tablet 1 tablet Take 1 every day every day tablet by oral by oral every day route for route for by oral 30 days. 30 days. route for 30 days. Budesonide Budesonide Yes 2 2xD inhaled [address] [facility] times per [facility] (LUF/LI V/SA) gabapentin gabapentin No gabapentin [facility] 300 mg 300 mg 300 mg [facility] capsule capsule capsule Take 1 Take 1 Take 1 capsule 3 capsule 3 capsule 3 times a day times a day times a by oral by oral day by route for route for oral route 30 days. 30 days. for 30 days. lisinopril lisinopril No lisinopril [facility] 5 mg tablet 5 mg tablet 5 mg M edical Take 1 Take 1 tablet tablet tablet Take 1 every day every day tablet by oral by oral every day route for route for by oral 30 days. 30 days. route for 30 days. metformin metformin No metformin [facility] 500 mg 500 mg 500 mg Medical tablet Take tablet Take tablet 1 tablet 1 tablet Take 1 twice a day twice a day tablet by oral by oral twice a route for route for day by 30 days. 30 days. oral route for 30 days. Nystop Nystop No Nystop [facility] 100,000 100,000 100,000 Medica l unit/gram unit/gram unit/gram topical topical topical powder powder powder ProAir HFA ProAir HFA No 2puff(s Q4H ProAir HFA [facility] 90 90 ) 90 [facility] mcg/actuati mcg/actuati mcg/actuat on aerosol on aerosol ion inhaler inhaler aerosol Inhale 2 Inhale 2 inhaler puffs every puffs every Inhale 2 4 hours by 4 hours by puffs inhalation inhalation every 4 route as route as hours by needed. needed. inhalation route as needed. sertraline sertraline No sertraline [facility] 100 mg 100 mg 100 mg [facility] tablet Take tablet Take tablet 1 tablet 1 tablet Take 1 every day every day tablet by oral by oral every day route for route for by oral 30 days. 30 days. route for 30 days. Tums Extra Tums Extra No 1 BID Tums Extra [facility] Strength Strength Strength Med ical Smoothies Smoothies Smoothies 300 mg (750 300 mg (750 300 mg mg) mg) (750 mg) chewable chewable chewable tablet Take tablet Take tablet 1 tablet 1 tablet Take 1 twice a day twice a day tablet by oral by oral twice a route. route. day by oral route. zinc oxide zinc oxide No zinc oxide [facility] topical topical topical Medica l ointment ointment ointment Apply to Apply to Apply to affected affected affected skin TID skin TID skin TID Jeri Jeri No 1 Q1D Jeri [facility] Allergy 180 Allergy 180 All[facility] mg tablet mg tablet 180 mg Take 1 Take 1 tablet tablet tablet Take 1 every day every day tablet by oral by oral every day route. route. by oral route. aripiprazol aripiprazol No aripiprazo [facility] e 10 mg e 10 mg le 10 mg Medic al tablet Take tablet Take tablet 1 tablet 1 tablet Take 1 every day every day tablet by oral by oral every day route at route at by oral bedtime for bedtime for route at 30 days. 30 days. bedtime for 30 days. Clindamycin Clindamycin Yes 300mg 4xD orally [address] [facility] 300 MG Oral 300 MG Oral times per [facility] Capsule Capsule day [facility] (LUF/LI V/SA) aspirin 81 aspirin 81 No 1 Q1D aspirin 81 [facility] mg mg mg Medical tablet,kit tablet,kit tablet,del yed release yed release ayed Take 1 Take 1 release tablet tablet Take 1 every day every day tablet by oral by oral every day route. route. by oral route. atorvastati atorvastati No atorvastat [facility] n 40 mg n 40 mg in 40 mg Medic al tablet Take tablet Take tablet 1 tablet 1 tablet Take 1 every day every day tablet by oral by oral every day route at route at by oral bedtime for bedtime for route at 30 days. 30 days. bedtime for 30 days. benztropine benztropine No benztropin [facility] 1 mg tablet 1 mg tablet e 1 mg Medical Take 1 mg Take 1 mg tablet every day every day Take 1 mg by oral by oral every day route at route at by oral bedtime for bedtime for route at 30 days. 30 days. bedtime for 30 days. Colace 100 Colace 100 No 1capsul Q1D Colace 100 [facility] mg capsule mg capsule e(s) mg capsule Medical Take 1 Take 1 Take 1 capsule capsule capsule every day every day every day by oral by oral by oral route. route. route. ergocalcife ergocalcife No 1capsul Q1W ergocalcif [facility] rol rol e(s) [facility] (vitamin (vitamin (vitamin D2) 1,250 D2) 1,250 D2) 1,250 mcg (50,000 mcg (50,000 mcg unit) unit) (50,000 capsule capsule unit) Take 1 Take 1 capsule capsule capsule Take 1 every week every week capsule by oral by oral every week route. route. by oral route. ferrous ferrous No 1 Q1D ferrous [facility] sulfate 324 sulfate 324 sulfate Medical mg (65 mg mg (65 mg 324 mg (65 iron) iron) mg iron) tablet,kit tablet,kit tablet,del yed release yed release ayed Take 1 Take 1 release tablet tablet Take 1 every day every day tablet by oral by oral every day route. route. by oral route. folic acid folic acid No 1 Q1D folic acid [facility] 400 mcg 400 mcg 400 mcg Medica l tablet Take tablet Take tablet 1 tablet 1 tablet Take 1 every day every day tablet by oral by oral every day route. route. by oral route. furosemide furosemide No furosemide [facility] 80 mg 80 mg 80 mg Medical tablet Take tablet Take tablet 1 tablet 1 tablet Take 1 every day every day tablet by oral by oral every day route for route for by oral 30 days. 30 days. route for 30 days. gabapentin gabapentin No gabapentin [facility] 300 mg 300 mg 300 mg [facility] capsule capsule capsule Take 1 Take 1 Take 1 capsule 3 capsule 3 capsule 3 times a day times a day times a by oral by oral day by route for route for oral route 30 days. 30 days. for 30 days. ipratropium ipratropium No 2.5mL Q6H ipratropiu [facility] bromide bromide m bromide Medi jack 0.02 % 0.02 % 0.02 % solution solution solution for for for inhalation inhalation inhalation Inhale 2.5 Inhale 2.5 Inhale 2.5 mL every 6 mL every 6 mL every 6 hours by hours by hours by inhalation inhalation inhalation route. route. route. lasix lasix Yes [address] [facility] daily [facility] (LUF/LI V/SA) Lantus Lantus No 35unit( Q1D Lantus [facility] U-100 U-100 s) U-100 [facility] Insulin 100 Insulin 100 Insulin unit/mL unit/mL 100 subcutaneou subcutaneou unit/mL s solution s solution subcutaneo Inject 35 Inject 35 us units every units every solution day by day by Inject 35 subcutaneou subcutaneou units s route. s route. every day by subcutaneo us route. lisinopril lisinopril No lisinopril [facility] 5 mg tablet 5 mg tablet 5 mg M edical Take 1 Take 1 tablet tablet tablet Take 1 every day every day tablet by oral by oral every day route for route for by oral 30 days. 30 days. route for 30 days. metformin metformin No metformin [facility] 500 mg 500 mg 500 mg Medical tablet Take tablet Take tablet 1 tablet 1 tablet Take 1 twice a day twice a day tablet by oral by oral twice a route for route for day by 30 days. 30 days. oral route for 30 days. Nystop Nystop No Nystop [facility] 100,000 100,000 100,000 Medica l unit/gram unit/gram unit/gram topical topical topical powder powder powder prednisone prednisone No 1 BID prednisone [facility] 10 mg 10 mg 10 mg Medical tablet Take tablet Take tablet 1 tablet 1 tablet Take 1 twice a day twice a day tablet by oral by oral twice a route. route. day by oral route. ProAir HFA ProAir HFA No 2puff(s Q4H ProAir HFA [facility] 90 90 ) 90 Medical mcg/actuati mcg/actuati mcg/actuat on aerosol on aerosol ion inhaler inhaler aerosol Inhale 2 Inhale 2 inhaler puffs every puffs every Inhale 2 4 hours by 4 hours by puffs inhalation inhalation every 4 route as route as hours by needed. needed. inhalation route as needed. sertraline sertraline No sertraline [facility] 100 mg 100 mg 100 mg [facility] tablet Take tablet Take tablet 1 tablet 1 tablet Take 1 every day every day tablet by oral by oral every day route for route for by oral 30 days. 30 days. route for 30 days. spironolact spironolact No 1 Q1D spironolac [facility] one 25 mg one 25 mg tone 25 mg Medical tablet Take tablet Take tablet 1 tablet 1 tablet Take 1 every day every day tablet by oral by oral every day route. route. by oral route. Symbicort Symbicort No 2puff(s BID Symbicort [facility] 160 mcg-4.5 160 mcg-4.5 ) 160 M edical mcg/actuati mcg/actuati mcg-4.5 on HFA on HFA mcg/actuat aerosol aerosol ion HFA inhaler inhaler aerosol Inhale 2 Inhale 2 inhaler puffs twice puffs twice Inhale 2 a day by a day by puffs inhalation inhalation twice a route. route. day by inhalation route. Tums Extra Tums Extra No 1 BID Tums Extra [facility] Strength Strength Strength Med ical Smoothies Smoothies Smoothies 300 mg (750 300 mg (750 300 mg mg) mg) (750 mg) chewable chewable chewable tablet Take tablet Take tablet 1 tablet 1 tablet Take 1 twice a day twice a day tablet by oral by oral twice a route. route. day by oral route. Lisinopril Lisinopril Yes 5mg 1xD orally [facility] 5 MG Oral 5 MG Oral daily [facility] Tablet Tablet [facility] (LUF/LI V/SA) zinc oxide zinc oxide No zinc oxide [facility] topical topical topical Medica l ointment ointment ointment Apply to Apply to Apply to affected affected affected skin TID skin TID skin TID Jeri Jeri No 1 Q1D Jeri [facility] Allergy 180 Allergy 180 Allergy [facility] mg tablet mg tablet 180 mg Take 1 Take 1 tablet tablet tablet Take 1 every day every day tablet by oral by oral every day route. route. by oral route. aripiprazol aripiprazol No aripiprazo [facility] e 10 mg e 10 mg le 10 mg Medic al tablet Take tablet Take tablet 1 tablet 1 tablet Take 1 every day every day tablet by oral by oral every day route at route at by oral bedtime for bedtime for route at 30 days. 30 days. bedtime for 30 days. aspirin 81 aspirin 81 No 1 Q1D aspirin 81 [facility] mg mg mg Medical tablet,kit tablet,kit tablet,del yed release yed release ayed Take 1 Take 1 release tablet tablet Take 1 every day every day tablet by oral by oral every day route. route. by oral route. atorvastati atorvastati No atorvastat [facility] n 40 mg n 40 mg in 40 mg Medic al tablet Take tablet Take tablet 1 tablet 1 tablet Take 1 every day every day tablet by oral by oral every day route at route at by oral bedtime for bedtime for route at 30 days. 30 days. bedtime for 30 days. benztropine benztropine No benztropin [facility] 1 mg tablet 1 mg tablet e 1 mg Medical Take 1 mg Take 1 mg tablet every day every day Take 1 mg by oral by oral every day route at route at by oral bedtime for bedtime for route at 30 days. 30 days. bedtime for 30 days. Colace 100 Colace 100 No 1capsul Q1D Colace 100 [facility] mg capsule mg capsule e(s) mg capsule Medical Take 1 Take 1 Take 1 capsule capsule capsule every day every day every day by oral by oral by oral route. route. route. ergocalcife ergocalcife No 1capsul Q1W ergocalcif [facility] rol rol e(s) [facility] (vitamin (vitamin (vitamin D2) 1,250 D2) 1,250 D2) 1,250 mcg (50,000 mcg (50,000 mcg unit) unit) (50,000 capsule capsule unit) Take 1 Take 1 capsule capsule capsule Take 1 every week every week capsule by oral by oral every week route. route. by oral route. ferrous ferrous No 1 Q1D ferrous [facility] sulfate 324 sulfate 324 sulfate Medical mg (65 mg mg (65 mg 324 mg (65 iron) iron) mg iron) tablet,kit tablet,kit tablet,del yed release yed release ayed Take 1 Take 1 release tablet tablet Take 1 every day every day tablet by oral by oral every day route. route. by oral route. folic acid folic acid No 1 Q1D folic acid [facility] 400 mcg 400 mcg 400 mcg Medica l tablet Take tablet Take tablet 1 tablet 1 tablet Take 1 every day every day tablet by oral by oral every day route. route. by oral route. Metformin Metformin Yes 500mg 2xD orally [address] [facility] hydrochlori hydrochlori times per [facility] de 500 MG de 500 MG day [facility] Oral Tablet Oral Tablet l (LUF/LI V/SA) furosemide furosemide No furosemide [facility] 80 mg 80 mg 80 mg [facility] tablet Take tablet Take tablet 1 tablet 1 tablet Take 1 every day every day tablet by oral by oral every day route for route for by oral 30 days. 30 days. route for 30 days. gabapentin gabapentin No gabapentin [facility] 300 mg 300 mg 300 mg Medical capsule capsule capsule Take 1 Take 1 Take 1 capsule 3 capsule 3 capsule 3 times a day times a day times a by oral by oral day by route for route for oral route 30 days. 30 days. for 30 days. ipratropium ipratropium No 2.5mL Q6H ipratropiu [facility] bromide bromide m bromide Medi jack 0.02 % 0.02 % 0.02 % solution solution solution for for for inhalation inhalation inhalation Inhale 2.5 Inhale 2.5 Inhale 2.5 mL every 6 mL every 6 mL every 6 hours by hours by hours by inhalation inhalation inhalation route. route. route. Lantus Lantus No 35unit( Q1D Lantus [facility] U-100 U-100 s) U-100 [facility] Insulin 100 Insulin 100 Insulin unit/mL unit/mL 100 subcutaneou subcutaneou unit/mL s solution s solution subcutaneo Inject 35 Inject 35 us units every units every solution day by day by Inject 35 subcutaneou subcutaneou units s route. s route. every day by subcutaneo us route. lisinopril lisinopril No lisinopril [facility] 5 mg tablet 5 mg tablet 5 mg M edical Take 1 Take 1 tablet tablet tablet Take 1 every day every day tablet by oral by oral every day route for route for by oral 30 days. 30 days. route for 30 days. metformin metformin No metformin [facility] 500 mg 500 mg 500 mg Medical tablet Take tablet Take tablet 1 tablet 1 tablet Take 1 twice a day twice a day tablet by oral by oral twice a route for route for day by 30 days. 30 days. oral route for 30 days. Nystop Nystop No Nystop [facility] 100,000 100,000 100,000 Medica l unit/gram unit/gram unit/gram topical topical topical powder powder powder prednisone prednisone No 1 BID prednisone [facility] 10 mg 10 mg 10 mg Medical tablet Take tablet Take tablet 1 tablet 1 tablet Take 1 twice a day twice a day tablet by oral by oral twice a route. route. day by oral route. ProAir HFA ProAir HFA No 2puff(s Q4H ProAir HFA [facility] 90 90 ) 90 Medical mcg/actuati mcg/actuati mcg/actuat on aerosol on aerosol ion inhaler inhaler aerosol Inhale 2 Inhale 2 inhaler puffs every puffs every Inhale 2 4 hours by 4 hours by puffs inhalation inhalation every 4 route as route as hours by needed. needed. inhalation route as needed. sertraline sertraline No sertraline [facility] 100 mg 100 mg 100 mg Medical tablet Take tablet Take tablet 1 tablet 1 tablet Take 1 every day every day tablet by oral by oral every day route for route for by oral 30 days. 30 days. route for 30 days. predniSONE predniSONE Yes [address] [facility] 10 mg 10 mg package [facility] directions [facility] (2 pills a l day for 1 (LUF/LI day then 1 V/SA) pill a day for 1 day then 1/2 pill a day for 1 day and then stop) spironolact spironolact No 1 Q1D spironolac [facility] one 25 mg one 25 mg tone 25 mg Medical tablet Take tablet Take tablet 1 tablet 1 tablet Take 1 every day every day tablet by oral by oral every day route. route. by oral route. Symbicort Symbicort No 2puff(s BID Symbicort [facility] 160 mcg-4.5 160 mcg-4.5 ) 160 M edical mcg/actuati mcg/actuati mcg-4.5 on HFA on HFA mcg/actuat aerosol aerosol ion HFA inhaler inhaler aerosol Inhale 2 Inhale 2 inhaler puffs twice puffs twice Inhale 2 a day by a day by puffs inhalation inhalation twice a route. route. day by inhalation route. Tums Extra Tums Extra No 1 BID Tums Extra [facility] Strength Strength Strength Med ical Smoothies Smoothies Smoothies 300 mg (750 300 mg (750 300 mg mg) mg) (750 mg) chewable chewable chewable tablet Take tablet Take tablet 1 tablet 1 tablet Take 1 twice a day twice a day tablet by oral by oral twice a route. route. day by oral route. zinc oxide zinc oxide No zinc oxide [facility] topical topical topical Medica l ointment ointment ointment Apply to Apply to Apply to affected affected affected skin TID skin TID skin TID Jeri Jeri No 1 Q1D Jeri [facility] Allergy 180 Allergy 180 Allergy Medical mg tablet mg tablet 180 mg Take 1 Take 1 tablet tablet tablet Take 1 every day every day tablet by oral by oral every day route. route. by oral route. aripiprazol aripiprazol No aripiprazo [facility] e 10 mg e 10 mg le 10 mg Medic al tablet Take tablet Take tablet 1 tablet 1 tablet Take 1 every day every day tablet by oral by oral every day route at route at by oral bedtime for bedtime for route at 30 days. 30 days. bedtime for 30 days. aspirin 81 aspirin 81 No 1 Q1D aspirin 81 [facility] mg mg mg Medical tablet,kit tablet,kit tablet,del yed release yed release ayed Take 1 Take 1 release tablet tablet Take 1 every day every day tablet by oral by oral every day route. route. by oral route. atorvastati atorvastati No atorvastat [facility] n 40 mg n 40 mg in 40 mg Medic al tablet Take tablet Take tablet 1 tablet 1 tablet Take 1 every day every day tablet by oral by oral every day route at route at by oral bedtime for bedtime for route at 30 days. 30 days. bedtime for 30 days. benztropine benztropine No benztropin [facility] 1 mg tablet 1 mg tablet e 1 mg Medical Take 1 mg Take 1 mg tablet every day every day Take 1 mg by oral by oral every day route at route at by oral bedtime for bedtime for route at 30 days. 30 days. bedtime for 30 days. Colace 100 Colace 100 No 1capsul Q1D Colace 100 [facility] mg capsule mg capsule e(s) mg capsule Medical Take 1 Take 1 Take 1 capsule capsule capsule every day every day every day by oral by oral by oral route. route. route. ergocalcife ergocalcife No 1capsul Q1W ergocalcif [facility] rol rol e(s) [facility] (vitamin (vitamin (vitamin D2) 1,250 D2) 1,250 D2) 1,250 mcg (50,000 mcg (50,000 mcg unit) unit) (50,000 capsule capsule unit) Take 1 Take 1 capsule capsule capsule Take 1 every week every week capsule by oral by oral every week route. route. by oral route. ferrous ferrous No 1 Q1D ferrous [facility] sulfate 324 sulfate 324 sulfate Medical mg (65 mg mg (65 mg 324 mg (65 iron) iron) mg iron) tablet,kit tablet,kit tablet,del yed release yed release ayed Take 1 Take 1 release tablet tablet Take 1 every day every day tablet by oral by oral every day route. route. by oral route. folic acid folic acid No 1 Q1D folic acid [facility] 400 mcg 400 mcg 400 mcg Medica l tablet Take tablet Take tablet 1 tablet 1 tablet Take 1 every day every day tablet by oral by oral every day route. route. by oral route. furosemide furosemide No furosemide [facility] 80 mg 80 mg 80 mg Medical tablet Take tablet Take tablet 1 tablet 1 tablet Take 1 every day every day tablet by oral by oral every day route for route for by oral 30 days. 30 days. route for 30 days. gabapentin gabapentin No gabapentin [facility] 300 mg 300 mg 300 mg Medical capsule capsule capsule Take 1 Take 1 Take 1 capsule 3 capsule 3 capsule 3 times a day times a day times a by oral by oral day by route for route for oral route 30 days. 30 days. for 30 days. ipratropium ipratropium No 2.5mL Q6H ipratropiu [facility] bromide bromide m bromide [facility]i jack 0.02 % 0.02 % 0.02 % solution solution solution for for for inhalation inhalation inhalation Inhale 2.5 Inhale 2.5 Inhale 2.5 mL every 6 mL every 6 mL every 6 hours by hours by hours by inhalation inhalation inhalation route. route. route. Lantus Lantus No 35unit( Q1D Lantus [facility] U-100 U-100 s) U-100 Medical Insulin 100 Insulin 100 Insulin unit/mL unit/mL 100 subcutaneou subcutaneou unit/mL s solution s solution subcutaneo Inject 35 Inject 35 us units every units every solution day by day by Inject 35 subcutaneou subcutaneou units s route. s route. every day by subcutaneo us route. lisinopril lisinopril No lisinopril [facility] 5 mg tablet 5 mg tablet 5 mg M edical Take 1 Take 1 tablet tablet tablet Take 1 every day every day tablet by oral by oral every day route for route for by oral 30 days. 30 days. route for 30 days. metformin metformin No metformin [facility] 500 mg 500 mg 500 mg Medical tablet Take tablet Take tablet 1 tablet 1 tablet Take 1 twice a day twice a day tablet by oral by oral twice a route for route for day by 30 days. 30 days. oral route for 30 days. Nystop Nystop No Nystop [facility] 100,000 100,000 100,000 Medica l unit/gram unit/gram unit/gram topical topical topical powder powder powder prednisone prednisone No 1 BID prednisone [facility] 10 mg 10 mg 10 mg Medical tablet Take tablet Take tablet 1 tablet 1 tablet Take 1 twice a day twice a day tablet by oral by oral twice a route. route. day by oral route. ProAir HFA ProAir HFA No 2puff(s Q4H ProAir HFA [facility] 90 90 ) 90 Medical mcg/actuati mcg/actuati mcg/actuat on aerosol on aerosol ion inhaler inhaler aerosol Inhale 2 Inhale 2 inhaler puffs every puffs every Inhale 2 4 hours by 4 hours by puffs inhalation inhalation every 4 route as route as hours by needed. needed. inhalation route as needed. sertraline sertraline No sertraline [facility] 100 mg 100 mg 100 mg Medical tablet Take tablet Take tablet 1 tablet 1 tablet Take 1 every day every day tablet by oral by oral every day route for route for by oral 30 days. 30 days. route for 30 days. spironolact spironolact No 1 Q1D spironolac [facility] one 25 mg one 25 mg tone 25 mg Medical tablet Take tablet Take tablet 1 tablet 1 tablet Take 1 every day every day tablet by oral by oral every day route. route. by oral route. Symbicort Symbicort No 2puff(s BID Symbicort [facility] 160 mcg-4.5 160 mcg-4.5 ) 160 M edical mcg/actuati mcg/actuati mcg-4.5 on HFA on HFA mcg/actuat aerosol aerosol ion HFA inhaler inhaler aerosol Inhale 2 Inhale 2 inhaler puffs twice puffs twice Inhale 2 a day by a day by puffs inhalation inhalation twice a route. route. day by inhalation route. Tums Extra Tums Extra No 1 BID Tums Extra [facility] Strength Strength Strength Med ical Smoothies Smoothies Smoothies 300 mg (750 300 mg (750 300 mg mg) mg) (750 mg) chewable chewable chewable tablet Take tablet Take tablet 1 tablet 1 tablet Take 1 twice a day twice a day tablet by oral by oral twice a route. route. day by oral route. zinc oxide zinc oxide No zinc oxide [facility] topical topical topical Medica l ointment ointment ointment Apply to Apply to Apply to affected affected affected skin TID skin TID skin TID Jeri Jeri No 1 Q1D Jeri [facility] Allergy 180 Allergy 180 Allergy Medical mg tablet mg tablet 180 mg Take 1 Take 1 tablet tablet tablet Take 1 every day every day tablet by oral by oral every day route. route. by oral route. aripiprazol aripiprazol No aripiprazo [facility] e 10 mg e 10 mg le 10 mg Medic al tablet Take tablet Take tablet 1 tablet 1 tablet Take 1 every day every day tablet by oral by oral every day route at route at by oral bedtime for bedtime for route at 30 days. 30 days. bedtime for 30 days. aspirin 81 aspirin 81 No 1 Q1D aspirin 81 [facility] mg mg mg Medical tablet,kit tablet,kit tablet,del yed release yed release ayed Take 1 Take 1 release tablet tablet Take 1 every day every day tablet by oral by oral every day route. route. by oral route. atorvastati atorvastati No atorvastat [facility] n 40 mg n 40 mg in 40 mg Medic al tablet Take tablet Take tablet 1 tablet 1 tablet Take 1 every day every day tablet by oral by oral every day route at route at by oral bedtime for bedtime for route at 30 days. 30 days. bedtime for 30 days. benztropine benztropine No benztropin [facility] 1 mg tablet 1 mg tablet e 1 mg Medical Take 1 mg Take 1 mg tablet every day every day Take 1 mg by oral by oral every day route at route at by oral bedtime for bedtime for route at 30 days. 30 days. bedtime for 30 days. Colace 100 Colace 100 No 1capsul Q1D Colace 100 [facility] mg capsule mg capsule e(s) mg capsule Medical Take 1 Take 1 Take 1 capsule capsule capsule every day every day every day by oral by oral by oral route. route. route. ergocalcife ergocalcife No 1capsul Q1W ergocalcif [facility] rol rol e(s) [facility] (vitamin (vitamin (vitamin D2) 1,250 D2) 1,250 D2) 1,250 mcg (50,000 mcg (50,000 mcg unit) unit) (50,000 capsule capsule unit) Take 1 Take 1 capsule capsule capsule Take 1 every week every week capsule by oral by oral every week route. route. by oral route. ferrous ferrous No 1 Q1D ferrous [facility] sulfate 324 sulfate 324 sulfate Medical mg (65 mg mg (65 mg 324 mg (65 iron) iron) mg iron) tablet,kit tablet,kit tablet,del yed release yed release ayed Take 1 Take 1 release tablet tablet Take 1 every day every day tablet by oral by oral every day route. route. by oral route. folic acid folic acid No 1 Q1D folic acid [facility] 400 mcg 400 mcg 400 mcg Medica l tablet Take tablet Take tablet 1 tablet 1 tablet Take 1 every day every day tablet by oral by oral every day route. route. by oral route. furosemide furosemide No furosemide [facility] 80 mg 80 mg 80 mg Medical tablet Take tablet Take tablet 1 tablet 1 tablet Take 1 every day every day tablet by oral by oral every day route for route for by oral 30 days. 30 days. route for 30 days. gabapentin gabapentin No gabapentin [facility] 300 mg 300 mg 300 mg Medical capsule capsule capsule Take 1 Take 1 Take 1 capsule 3 capsule 3 capsule 3 times a day times a day times a by oral by oral day by route for route for oral route 30 days. 30 days. for 30 days. ipratropium ipratropium No 2.5mL Q6H ipratropiu [facility] bromide bromide m bromide [facility] 0.02 % 0.02 % 0.02 % solution solution solution for for for inhalation inhalation inhalation Inhale 2.5 Inhale 2.5 Inhale 2.5 mL every 6 mL every 6 mL every 6 hours by hours by hours by inhalation inhalation inhalation route. route. route. Lantus Lantus No 35unit( Q1D Lantus [facility] U-100 U-100 s) U-100 Medical Insulin 100 Insulin 100 Insulin unit/mL unit/mL 100 subcutaneou subcutaneou unit/mL s solution s solution subcutaneo Inject 35 Inject 35 us units every units every solution day by day by Inject 35 subcutaneou subcutaneou units s route. s route. every day by subcutaneo us route. lisinopril lisinopril No lisinopril [facility] 5 mg tablet 5 mg tablet 5 mg M edical Take 1 Take 1 tablet tablet tablet Take 1 every day every day tablet by oral by oral every day route for route for by oral 30 days. 30 days. route for 30 days. metformin metformin No metformin [facility] 500 mg 500 mg 500 mg Medical tablet Take tablet Take tablet 1 tablet 1 tablet Take 1 twice a day twice a day tablet by oral by oral twice a route for route for day by 30 days. 30 days. oral route for 30 days. Nystop Nystop No Nystop [facility] 100,000 100,000 100,000 Medica l unit/gram unit/gram unit/gram topical topical topical powder powder powder prednisone prednisone No 1 BID prednisone [facility] 10 mg 10 mg 10 mg Medical tablet Take tablet Take tablet 1 tablet 1 tablet Take 1 twice a day twice a day tablet by oral by oral twice a route. route. day by oral route. ProAir HFA ProAir HFA No 2puff(s Q4H ProAir HFA [facility] 90 90 ) 90 Medical mcg/actuati mcg/actuati mcg/actuat on aerosol on aerosol ion inhaler inhaler aerosol Inhale 2 Inhale 2 inhaler puffs every puffs every Inhale 2 4 hours by 4 hours by puffs inhalation inhalation every 4 route as route as hours by needed. needed. inhalation route as needed. sertraline sertraline No sertraline [facility] 100 mg 100 mg 100 mg Medical tablet Take tablet Take tablet 1 tablet 1 tablet Take 1 every day every day tablet by oral by oral every day route for route for by oral 30 days. 30 days. route for 30 days. spironolact spironolact No 1 Q1D spironolac [facility] one 25 mg one 25 mg tone 25 mg Medical tablet Take tablet Take tablet 1 tablet 1 tablet Take 1 every day every day tablet by oral by oral every day route. route. by oral route. Symbicort Symbicort No 2puff(s BID Symbicort [facility] 160 mcg-4.5 160 mcg-4.5 ) 160 M edical mcg/actuati mcg/actuati mcg-4.5 on HFA on HFA mcg/actuat aerosol aerosol ion HFA inhaler inhaler aerosol Inhale 2 Inhale 2 inhaler puffs twice puffs twice Inhale 2 a day by a day by puffs inhalation inhalation twice a route. route. day by inhalation route. Tums Extra Tums Extra No 1 BID Tums Extra [facility] Strength Strength Strength Med ical Smoothies Smoothies Smoothies 300 mg (750 300 mg (750 300 mg mg) mg) (750 mg) chewable chewable chewable tablet Take tablet Take tablet 1 tablet 1 tablet Take 1 twice a day twice a day tablet by oral by oral twice a route. route. day by oral route. zinc oxide zinc oxide No zinc oxide [facility] topical topical topical Medica l ointment ointment ointment Apply to Apply to Apply to affected affected affected skin TID skin TID skin TID Jeri Jeri No 1 Q1D Jeri [facility] Allergy 180 Allergy 180 Allergy Medical mg tablet mg tablet 180 mg Take 1 Take 1 tablet tablet tablet Take 1 every day every day tablet by oral by oral every day route. route. by oral route. aripiprazol aripiprazol No aripiprazo [facility] e 10 mg e 10 mg le 10 mg Medic al tablet Take tablet Take tablet 1 tablet 1 tablet Take 1 every day every day tablet by oral by oral every day route at route at by oral bedtime for bedtime for route at 30 days. 30 days. bedtime for 30 days. aspirin 81 aspirin 81 No 1 Q1D aspirin 81 [facility] mg mg mg Medical tablet,kit tablet,kit tablet,del yed release yed release ayed Take 1 Take 1 release tablet tablet Take 1 every day every day tablet by oral by oral every day route. route. by oral route. atorvastati atorvastati No atorvastat [facility] n 40 mg n 40 mg in 40 mg Medic al tablet Take tablet Take tablet 1 tablet 1 tablet Take 1 every day every day tablet by oral by oral every day route at route at by oral bedtime for bedtime for route at 30 days. 30 days. bedtime for 30 days. benztropine benztropine No benztropin [facility] 1 mg tablet 1 mg tablet e 1 mg Medical Take 1 mg Take 1 mg tablet every day every day Take 1 mg by oral by oral every day route at route at by oral bedtime for bedtime for route at 30 days. 30 days. bedtime for 30 days. Colace 100 Colace 100 No 1capsul Q1D Colace 100 [facility] mg capsule mg capsule e(s) mg capsule Medical Take 1 Take 1 Take 1 capsule capsule capsule every day every day every day by oral by oral by oral route. route. route. ergocalcife ergocalcife No 1capsul Q1W ergocalcif [facility] rol rol e(s) [facility] (vitamin (vitamin (vitamin D2) 1,250 D2) 1,250 D2) 1,250 mcg (50,000 mcg (50,000 mcg unit) unit) (50,000 capsule capsule unit) Take 1 Take 1 capsule capsule capsule Take 1 every week every week capsule by oral by oral every week route. route. by oral route. ferrous ferrous No 1 Q1D ferrous [facility] sulfate 324 sulfate 324 sulfate Medical mg (65 mg mg (65 mg 324 mg (65 iron) iron) mg iron) tablet,kit tablet,kit tablet,del yed release yed release ayed Take 1 Take 1 release tablet tablet Take 1 every day every day tablet by oral by oral every day route. route. by oral route. folic acid folic acid No 1 Q1D folic acid [facility] 400 mcg 400 mcg 400 mcg Medica l tablet Take tablet Take tablet 1 tablet 1 tablet Take 1 every day every day tablet by oral by oral every day route. route. by oral route. furosemide furosemide No furosemide [facility] 80 mg 80 mg 80 mg Medical tablet Take tablet Take tablet 1 tablet 1 tablet Take 1 every day every day tablet by oral by oral every day route for route for by oral 30 days. 30 days. route for 30 days. gabapentin gabapentin No gabapentin [facility] 300 mg 300 mg 300 mg Medical capsule capsule capsule Take 1 Take 1 Take 1 capsule 3 capsule 3 capsule 3 times a day times a day times a by oral by oral day by route for route for oral route 30 days. 30 days. for 30 days. ipratropium ipratropium No 2.5mL Q6H ipratropiu [facility] bromide bromide m bromide [facility]i jack 0.02 % 0.02 % 0.02 % solution solution solution for for for inhalation inhalation inhalation Inhale 2.5 Inhale 2.5 Inhale 2.5 mL every 6 mL every 6 mL every 6 hours by hours by hours by inhalation inhalation inhalation route. route. route. Lantus Lantus No 35unit( Q1D Lantus [facility] U-100 U-100 s) U-100 Medical Insulin 100 Insulin 100 Insulin unit/mL unit/mL 100 subcutaneou subcutaneou unit/mL s solution s solution subcutaneo Inject 35 Inject 35 us units every units every solution day by day by Inject 35 subcutaneou subcutaneou units s route. s route. every day by subcutaneo us route. lisinopril lisinopril No lisinopril [facility] 5 mg tablet 5 mg tablet 5 mg M edical Take 1 Take 1 tablet tablet tablet Take 1 every day every day tablet by oral by oral every day route for route for by oral 30 days. 30 days. route for 30 days. metformin metformin No metformin [facility] 500 mg 500 mg 500 mg Medical tablet Take tablet Take tablet 1 tablet 1 tablet Take 1 twice a day twice a day tablet by oral by oral twice a route for route for day by 30 days. 30 days. oral route for 30 days. Nystop Nystop No Nystop [facility] 100,000 100,000 100,000 Medica l unit/gram unit/gram unit/gram topical topical topical powder powder powder prednisone prednisone No 1 BID prednisone [facility] 10 mg 10 mg 10 mg Medical tablet Take tablet Take tablet 1 tablet 1 tablet Take 1 twice a day twice a day tablet by oral by oral twice a route. route. day by oral route. ProAir HFA ProAir HFA No 2puff(s Q4H ProAir HFA [facility] 90 90 ) 90 Medical mcg/actuati mcg/actuati mcg/actuat on aerosol on aerosol ion inhaler inhaler aerosol Inhale 2 Inhale 2 inhaler puffs every puffs every Inhale 2 4 hours by 4 hours by puffs inhalation inhalation every 4 route as route as hours by needed. needed. inhalation route as needed. sertraline sertraline No sertraline [facility] 100 mg 100 mg 100 mg Medical tablet Take tablet Take tablet 1 tablet 1 tablet Take 1 every day every day tablet by oral by oral every day route for route for by oral 30 days. 30 days. route for 30 days. spironolact spironolact No 1 Q1D spironolac [facility] one 25 mg one 25 mg tone 25 mg Medical tablet Take tablet Take tablet 1 tablet 1 tablet Take 1 every day every day tablet by oral by oral every day route. route. by oral route. Symbicort Symbicort No 2puff(s BID Symbicort [facility] 160 mcg-4.5 160 mcg-4.5 ) 160 M edical mcg/actuati mcg/actuati mcg-4.5 on HFA on HFA mcg/actuat aerosol aerosol ion HFA inhaler inhaler aerosol Inhale 2 Inhale 2 inhaler puffs twice puffs twice Inhale 2 a day by a day by puffs inhalation inhalation twice a route. route. day by inhalation route. Tums Extra Tums Extra No 1 BID Tums Extra [facility] Strength Strength Strength Med ical Smoothies Smoothies Smoothies 300 mg (750 300 mg (750 300 mg mg) mg) (750 mg) chewable chewable chewable tablet Take tablet Take tablet 1 tablet 1 tablet Take 1 twice a day twice a day tablet by oral by oral twice a route. route. day by oral route. zinc oxide zinc oxide No zinc oxide [facility] topical topical topical Medica l ointment ointment ointment Apply to Apply to Apply to affected affected affected skin TID skin TID skin TID Jeri Jeri No 1 Q1D Jeri [facility] Allergy 180 Allergy 180 Allergy Medical mg tablet mg tablet 180 mg Take 1 Take 1 tablet tablet tablet Take 1 every day every day tablet by oral by oral every day route. route. by oral route. aripiprazol aripiprazol No aripiprazo [facility] e 10 mg e 10 mg le 10 mg Medic al tablet Take tablet Take tablet 1 tablet 1 tablet Take 1 every day every day tablet by oral by oral every day route at route at by oral bedtime for bedtime for route at 30 days. 30 days. bedtime for 30 days. aspirin 81 aspirin 81 No 1 Q1D aspirin 81 [facility] mg mg mg Medical tablet,kit tablet,kit tablet,del yed release yed release ayed Take 1 Take 1 release tablet tablet Take 1 every day every day tablet by oral by oral every day route. route. by oral route. atorvastati atorvastati No atorvastat [facility] n 40 mg n 40 mg in 40 mg Medic al tablet Take tablet Take tablet 1 tablet 1 tablet Take 1 every day every day tablet by oral by oral every day route at route at by oral bedtime for bedtime for route at 30 days. 30 days. bedtime for 30 days. benztropine benztropine No benztropin [facility] 1 mg tablet 1 mg tablet e 1 mg Medical Take 1 mg Take 1 mg tablet every day every day Take 1 mg by oral by oral every day route at route at by oral bedtime for bedtime for route at 30 days. 30 days. bedtime for 30 days. Colace 100 Colace 100 No 1capsul Q1D Col[facility] 100 [facility] mg capsule mg capsule e(s) mg capsule Medical Take 1 Take 1 Take 1 capsule capsule capsule every day every day every day by oral by oral by oral route. route. route. ergocalcife ergocalcife No 1capsul Q1W ergocalcif [facility] rol rol e(s) [facility] (vitamin (vitamin (vitamin D2) 1,250 D2) 1,250 D2) 1,250 mcg (50,000 mcg (50,000 mcg unit) unit) (50,000 capsule capsule unit) Take 1 Take 1 capsule capsule capsule Take 1 every week every week capsule by oral by oral every week route. route. by oral route. ferrous ferrous No 1 Q1D ferrous [facility] sulfate 324 sulfate 324 sulfate Medical mg (65 mg mg (65 mg 324 mg (65 iron) iron) mg iron) tablet,kit tablet,kit tablet,del yed release yed release ayed Take 1 Take 1 release tablet tablet Take 1 every day every day tablet by oral by oral every day route. route. by oral route. folic acid folic acid No 1 Q1D folic acid [facility] 400 mcg 400 mcg 400 mcg Medica l tablet Take tablet Take tablet 1 tablet 1 tablet Take 1 every day every day tablet by oral by oral every day route. route. by oral route. furosemide furosemide No furosemide [facility] 80 mg 80 mg 80 mg Medical tablet Take tablet Take tablet 1 tablet 1 tablet Take 1 every day every day tablet by oral by oral every day route for route for by oral 30 days. 30 days. route for 30 days. gabapentin gabapentin No gabapentin [facility] 300 mg 300 mg 300 mg Medical capsule capsule capsule Take 1 Take 1 Take 1 capsule 3 capsule 3 capsule 3 times a day times a day times a by oral by oral day by route for route for oral route 30 days. 30 days. for 30 days. ipratropium ipratropium No 2.5mL Q6H ipratropiu [facility] bromide bromide m bromide Medi jack 0.02 % 0.02 % 0.02 % solution solution solution for for for inhalation inhalation inhalation Inhale 2.5 Inhale 2.5 Inhale 2.5 mL every 6 mL every 6 mL every 6 hours by hours by hours by inhalation inhalation inhalation route. route. route. Lantus Lantus No 35unit( Q1D Lantus [facility] U-100 U-100 s) U-100 Medical Insulin 100 Insulin 100 Insulin unit/mL unit/mL 100 subcutaneou subcutaneou unit/mL s solution s solution subcutaneo Inject 35 Inject 35 us units every units every solution day by day by Inject 35 subcutaneou subcutaneou units s route. s route. every day by subcutaneo us route. lisinopril lisinopril No lisinopril [facility] 5 mg tablet 5 mg tablet 5 mg M edical Take 1 Take 1 tablet tablet tablet Take 1 every day every day tablet by oral by oral every day route for route for by oral 30 days. 30 days. route for 30 days. metformin metformin No metformin [facility] 500 mg 500 mg 500 mg Medical tablet Take tablet Take tablet 1 tablet 1 tablet Take 1 twice a day twice a day tablet by oral by oral twice a route for route for day by 30 days. 30 days. oral route for 30 days. Nystop Nystop No Nystop [facility] 100,000 100,000 100,000 Medica l unit/gram unit/gram unit/gram topical topical topical powder powder powder prednisone prednisone No 1 BID prednisone [facility] 10 mg 10 mg 10 mg [facility] tablet Take tablet Take tablet 1 tablet 1 tablet Take 1 twice a day twice a day tablet by oral by oral twice a route. route. day by oral route. ProAir HFA ProAir HFA No 2puff(s Q4H ProAir HFA [facility] 90 90 ) 90 Medical mcg/actuati mcg/actuati mcg/actuat on aerosol on aerosol ion inhaler inhaler aerosol Inhale 2 Inhale 2 inhaler puffs every puffs every Inhale 2 4 hours by 4 hours by puffs inhalation inhalation every 4 route as route as hours by needed. needed. inhalation route as needed. sertraline sertraline No sertraline [facility] 100 mg 100 mg 100 mg [facility] tablet Take tablet Take tablet 1 tablet 1 tablet Take 1 every day every day tablet by oral by oral every day route for route for by oral 30 days. 30 days. route for 30 days. spironolact spironolact No 1 Q1D spironolac [facility] one 25 mg one 25 mg tone 25 mg Medical tablet Take tablet Take tablet 1 tablet 1 tablet Take 1 every day every day tablet by oral by oral every day route. route. by oral route. Symbicort Symbicort No 2puff(s BID Symbicort [facility] 160 mcg-4.5 160 mcg-4.5 ) 160 M edical mcg/actuati mcg/actuati mcg-4.5 on HFA on HFA mcg/actuat aerosol aerosol ion HFA inhaler inhaler aerosol Inhale 2 Inhale 2 inhaler puffs twice puffs twice Inhale 2 a day by a day by puffs inhalation inhalation twice a route. route. day by inhalation route. Tums Extra Tums Extra No 1 BID Tums Extra [facility] Strength Strength Strength Med ical Smoothies Smoothies Smoothies 300 mg (750 300 mg (750 300 mg mg) mg) (750 mg) chewable chewable chewable tablet Take tablet Take tablet 1 tablet 1 tablet Take 1 twice a day twice a day tablet by oral by oral twice a route. route. day by oral route. zinc oxide zinc oxide No zinc oxide [facility] topical topical topical Medica l ointment ointment ointment Apply to Apply to Apply to affected affected affected skin TID skin TID skin TID Jeri Jeri No 1 Q1D Jeri [facility] Allergy 180 Allergy 180 Allergy Medical mg tablet mg tablet 180 mg Take 1 Take 1 tablet tablet tablet Take 1 every day every day tablet by oral by oral every day route. route. by oral route. aripiprazol aripiprazol No aripiprazo [facility] e 10 mg e 10 mg le 10 mg Medic al tablet Take tablet Take tablet 1 tablet 1 tablet Take 1 every day every day tablet by oral by oral every day route at route at by oral bedtime for bedtime for route at 30 days. 30 days. bedtime for 30 days. aspirin 81 aspirin 81 No 1 Q1D aspirin 81 [facility] mg mg mg Medical tablet,kit tablet,kit tablet,del yed release yed release ayed Take 1 Take 1 release tablet tablet Take 1 every day every day tablet by oral by oral every day route. route. by oral route. atorvastati atorvastati No atorvastat [facility] n 40 mg n 40 mg in 40 mg Medic al tablet Take tablet Take tablet 1 tablet 1 tablet Take 1 every day every day tablet by oral by oral every day route at route at by oral bedtime for bedtime for route at 30 days. 30 days. bedtime for 30 days. benztropine benztropine No benztropin [facility] 1 mg tablet 1 mg tablet e 1 mg Medical Take 1 mg Take 1 mg tablet every day every day Take 1 mg by oral by oral every day route at route at by oral bedtime for bedtime for route at 30 days. 30 days. bedtime for 30 days. Colace 100 Colace 100 No 1capsul Q1D Colace 100 [facility] mg capsule mg capsule e(s) mg capsule Medical Take 1 Take 1 Take 1 capsule capsule capsule every day every day every day by oral by oral by oral route. route. route. ergocalcife ergocalcife No 1capsul Q1W ergocalcif [facility] rol rol e(s) [facility] (vitamin (vitamin (vitamin D2) 1,250 D2) 1,250 D2) 1,250 mcg (50,000 mcg (50,000 mcg unit) unit) (50,000 capsule capsule unit) Take 1 Take 1 capsule capsule capsule Take 1 every week every week capsule by oral by oral every week route. route. by oral route. ferrous ferrous No 1 Q1D ferrous [facility] sulfate 324 sulfate 324 sulfate Medical mg (65 mg mg (65 mg 324 mg (65 iron) iron) mg iron) tablet,kit tablet,kit tablet,del yed release yed release ayed Take 1 Take 1 release tablet tablet Take 1 every day every day tablet by oral by oral every day route. route. by oral route. folic acid folic acid No 1 Q1D folic acid [facility] 400 mcg 400 mcg 400 mcg Medica l tablet Take tablet Take tablet 1 tablet 1 tablet Take 1 every day every day tablet by oral by oral every day route. route. by oral route. furosemide furosemide No furosemide [facility] 80 mg 80 mg 80 mg Medical tablet Take tablet Take tablet 1 tablet 1 tablet Take 1 every day every day tablet by oral by oral every day route for route for by oral 30 days. 30 days. route for 30 days. gabapentin gabapentin No gabapentin [facility] 300 mg 300 mg 300 mg Medical capsule capsule capsule Take 1 Take 1 Take 1 capsule 3 capsule 3 capsule 3 times a day times a day times a by oral by oral day by route for route for oral route 30 days. 30 days. for 30 days. ipratropium ipratropium No 2.5mL Q6H ipratropiu [facility] bromide bromide m bromide [facility] jack 0.02 % 0.02 % 0.02 % solution solution solution for for for inhalation inhalation inhalation Inhale 2.5 Inhale 2.5 Inhale 2.5 mL every 6 mL every 6 mL every 6 hours by hours by hours by inhalation inhalation inhalation route. route. route. Lantus Lantus No 35unit( Q1D Lantus [facility] U-100 U-100 s) U-100 Medical Insulin 100 Insulin 100 Insulin unit/mL unit/mL 100 subcutaneou subcutaneou unit/mL s solution s solution subcutaneo Inject 35 Inject 35 us units every units every solution day by day by Inject 35 subcutaneou subcutaneou units s route. s route. every day by subcutaneo us route. lisinopril lisinopril No lisinopril [facility] 5 mg tablet 5 mg tablet 5 mg M edical Take 1 Take 1 tablet tablet tablet Take 1 every day every day tablet by oral by oral every day route for route for by oral 30 days. 30 days. route for 30 days. metformin metformin No metformin [facility] 500 mg 500 mg 500 mg Medical tablet Take tablet Take tablet 1 tablet 1 tablet Take 1 twice a day twice a day tablet by oral by oral twice a route for route for day by 30 days. 30 days. oral route for 30 days. Nystop Nystop No Nystop [facility] 100,000 100,000 100,000 Medica l unit/gram unit/gram unit/gram topical topical topical powder powder powder prednisone prednisone No 1 BID prednisone [facility] 10 mg 10 mg 10 mg Medical tablet Take tablet Take tablet 1 tablet 1 tablet Take 1 twice a day twice a day tablet by oral by oral twice a route. route. day by oral route. ProAir HFA ProAir HFA No 2puff(s Q4H ProAir HFA [facility] 90 90 ) 90 Medical mcg/actuati mcg/actuati mcg/actuat on aerosol on aerosol ion inhaler inhaler aerosol Inhale 2 Inhale 2 inhaler puffs every puffs every Inhale 2 4 hours by 4 hours by puffs inhalation inhalation every 4 route as route as hours by needed. needed. inhalation route as needed. sertraline sertraline No sertraline [facility] 100 mg 100 mg 100 mg [facility] tablet Take tablet Take tablet 1 tablet 1 tablet Take 1 every day every day tablet by oral by oral every day route for route for by oral 30 days. 30 days. route for 30 days. spironolact spironolact No 1 Q1D spironolac [facility] one 25 mg one 25 mg tone 25 mg Medical tablet Take tablet Take tablet 1 tablet 1 tablet Take 1 every day every day tablet by oral by oral every day route. route. by oral route. Symbicort Symbicort No 2puff(s BID Symbicort [facility] 160 mcg-4.5 160 mcg-4.5 ) 160 M edical mcg/actuati mcg/actuati mcg-4.5 on HFA on HFA mcg/actuat aerosol aerosol ion HFA inhaler inhaler aerosol Inhale 2 Inhale 2 inhaler puffs twice puffs twice Inhale 2 a day by a day by puffs inhalation inhalation twice a route. route. day by inhalation route. Tums Extra Tums Extra No 1 BID Tums Extra [facility] Strength Strength Strength Med ical Smoothies Smoothies Smoothies 300 mg (750 300 mg (750 300 mg mg) mg) (750 mg) chewable chewable chewable tablet Take tablet Take tablet 1 tablet 1 tablet Take 1 twice a day twice a day tablet by oral by oral twice a route. route. day by oral route. zinc oxide zinc oxide No zinc oxide [facility] topical topical topical Medica l ointment ointment ointment Apply to Apply to Apply to affected affected affected skin TID skin TID skin TID Jeri Jeri No 1 Q1D Jeri [facility] Allergy 180 Allergy 180 Allergy Medical mg tablet mg tablet 180 mg Take 1 Take 1 tablet tablet tablet Take 1 every day every day tablet by oral by oral every day route. route. by oral route. aripiprazol aripiprazol No aripiprazo [facility] e 10 mg e 10 mg le 10 mg Medic al tablet Take tablet Take tablet 1 tablet 1 tablet Take 1 every day every day tablet by oral by oral every day route at route at by oral bedtime for bedtime for route at 30 days. 30 days. bedtime for 30 days. aspirin 81 aspirin 81 No 1 Q1D aspirin 81 [facility] mg mg mg Medical tablet,kit tablet,kit tablet,del yed release yed release ayed Take 1 Take 1 release tablet tablet Take 1 every day every day tablet by oral by oral every day route. route. by oral route. atorvastati atorvastati No atorvastat [facility] n 40 mg n 40 mg in 40 mg Medic al tablet Take tablet Take tablet 1 tablet 1 tablet Take 1 every day every day tablet by oral by oral every day route at route at by oral bedtime for bedtime for route at 30 days. 30 days. bedtime for 30 days. benztropine benztropine No benztropin [facility] 1 mg tablet 1 mg tablet e 1 mg Medical Take 1 mg Take 1 mg tablet every day every day Take 1 mg by oral by oral every day route at route at by oral bedtime for bedtime for route at 30 days. 30 days. bedtime for 30 days. Colace 100 Colace 100 No 1capsul Q1D Colace 100 [facility] mg capsule mg capsule e(s) mg capsule Medical Take 1 Take 1 Take 1 capsule capsule capsule every day every day every day by oral by oral by oral route. route. route. ergocalcife ergocalcife No 1capsul Q1W ergocalcif [facility] rol rol e(s) [facility] (vitamin (vitamin (vitamin D2) 1,250 D2) 1,250 D2) 1,250 mcg (50,000 mcg (50,000 mcg unit) unit) (50,000 capsule capsule unit) Take 1 Take 1 capsule capsule capsule Take 1 every week every week capsule by oral by oral every week route. route. by oral route. ferrous ferrous No 1 Q1D ferrous [facility] sulfate 324 sulfate 324 sulfate Medical mg (65 mg mg (65 mg 324 mg (65 iron) iron) mg iron) tablet,kit tablet,kit tablet,del yed release yed release ayed Take 1 Take 1 release tablet tablet Take 1 every day every day tablet by oral by oral every day route. route. by oral route. folic acid folic acid No 1 Q1D folic acid [facility] 400 mcg 400 mcg 400 mcg Medica l tablet Take tablet Take tablet 1 tablet 1 tablet Take 1 every day every day tablet by oral by oral every day route. route. by oral route. furosemide furosemide No furosemide [facility] 80 mg 80 mg 80 mg Medical tablet Take tablet Take tablet 1 tablet 1 tablet Take 1 every day every day tablet by oral by oral every day route for route for by oral 30 days. 30 days. route for 30 days. gabapentin gabapentin No gabapentin [facility] 300 mg 300 mg 300 mg Medical capsule capsule capsule Take 1 Take 1 Take 1 capsule 3 capsule 3 capsule 3 times a day times a day times a by oral by oral day by route for route for oral route 30 days. 30 days. for 30 days. ipratropium ipratropium No 2.5mL Q6H ipratropiu [facility] bromide bromide m bromide [facility]i jack 0.02 % 0.02 % 0.02 % solution solution solution for for for inhalation inhalation inhalation Inhale 2.5 Inhale 2.5 Inhale 2.5 mL every 6 mL every 6 mL every 6 hours by hours by hours by inhalation inhalation inhalation route. route. route. Lantus Lantus No 35unit( Q1D Lantus [facility] U-100 U-100 s) U-100 Medical Insulin 100 Insulin 100 Insulin unit/mL unit/mL 100 subcutaneou subcutaneou unit/mL s solution s solution subcutaneo Inject 35 Inject 35 us units every units every solution day by day by Inject 35 subcutaneou subcutaneou units s route. s route. every day by subcutaneo us route. lisinopril lisinopril No lisinopril [facility] 5 mg tablet 5 mg tablet 5 mg M edical Take 1 Take 1 tablet tablet tablet Take 1 every day every day tablet by oral by oral every day route for route for by oral 30 days. 30 days. route for 30 days. metformin metformin No metformin [facility] 500 mg 500 mg 500 mg Medical tablet Take tablet Take tablet 1 tablet 1 tablet Take 1 twice a day twice a day tablet by oral by oral twice a route for route for day by 30 days. 30 days. oral route for 30 days. Nystop Nystop No Nystop [facility] 100,000 100,000 100,000 Medica l unit/gram unit/gram unit/gram topical topical topical powder powder powder prednisone prednisone No 1 BID prednisone [facility] 10 mg 10 mg 10 mg Medical tablet Take tablet Take tablet 1 tablet 1 tablet Take 1 twice a day twice a day tablet by oral by oral twice a route. route. day by oral route. ProAir HFA ProAir HFA No 2puff(s Q4H ProAir HFA [facility] 90 90 ) 90 Medical mcg/actuati mcg/actuati mcg/actuat on aerosol on aerosol ion inhaler inhaler aerosol Inhale 2 Inhale 2 inhaler puffs every puffs every Inhale 2 4 hours by 4 hours by puffs inhalation inhalation every 4 route as route as hours by needed. needed. inhalation route as needed. sertraline sertraline No sertraline [facility] 100 mg 100 mg 100 mg [facility] tablet Take tablet Take tablet 1 tablet 1 tablet Take 1 every day every day tablet by oral by oral every day route for route for by oral 30 days. 30 days. route for 30 days. spironolact spironolact No 1 Q1D spironolac [facility] one 25 mg one 25 mg tone 25 mg Medical tablet Take tablet Take tablet 1 tablet 1 tablet Take 1 every day every day tablet by oral by oral every day route. route. by oral route. Symbicort Symbicort No 2puff(s BID Symbicort [facility] 160 mcg-4.5 160 mcg-4.5 ) 160 M edical mcg/actuati mcg/actuati mcg-4.5 on HFA on HFA mcg/actuat aerosol aerosol ion HFA inhaler inhaler aerosol Inhale 2 Inhale 2 inhaler puffs twice puffs twice Inhale 2 a day by a day by puffs inhalation inhalation twice a route. route. day by inhalation route. Tums Extra Tums Extra No 1 BID Tums Extra [facility] Strength Strength Strength Med ical Smoothies Smoothies Smoothies 300 mg (750 300 mg (750 300 mg mg) mg) (750 mg) chewable chewable chewable tablet Take tablet Take tablet 1 tablet 1 tablet Take 1 twice a day twice a day tablet by oral by oral twice a route. route. day by oral route. zinc oxide zinc oxide No zinc oxide [facility] topical topical topical Medica l ointment ointment ointment Apply to Apply to Apply to affected affected affected skin TID skin TID skin TID Jeri Jeri No 1 Q1D Jeri [facility] Allergy 180 Allergy 180 Allergy Medical mg tablet mg tablet 180 mg Take 1 Take 1 tablet tablet tablet Take 1 every day every day tablet by oral by oral every day route. route. by oral route. aripiprazol aripiprazol No aripiprazo [facility] e 10 mg e 10 mg le 10 mg Medic al tablet Take tablet Take tablet 1 tablet 1 tablet Take 1 every day every day tablet by oral by oral every day route at route at by oral bedtime for bedtime for route at 30 days. 30 days. bedtime for 30 days. aspirin 81 aspirin 81 No 1 Q1D aspirin 81 [facility] mg mg mg Medical tablet,kit tablet,kit tablet,del yed release yed release ayed Take 1 Take 1 release tablet tablet Take 1 every day every day tablet by oral by oral every day route. route. by oral route. atorvastati atorvastati No atorvastat [facility] n 40 mg n 40 mg in 40 mg Medic al tablet Take tablet Take tablet 1 tablet 1 tablet Take 1 every day every day tablet by oral by oral every day route at route at by oral bedtime for bedtime for route at 30 days. 30 days. bedtime for 30 days. benztropine benztropine No benztropin [facility] 1 mg tablet 1 mg tablet e 1 mg Medical Take 1 mg Take 1 mg tablet every day every day Take 1 mg by oral by oral every day route at route at by oral bedtime for bedtime for route at 30 days. 30 days. bedtime for 30 days. budesonide- budesonide- No budesonide [facility] formoterol formoterol -formotero [facility] HFA 160 HFA 160 l HFA 160 mcg-4.5 mcg-4.5 mcg-4.5 mcg/actuati mcg/actuati mcg/actuat on aerosol on aerosol ion inhaler inhaler aerosol Inhale 2 Inhale 2 inhaler puffs twice puffs twice Inhale 2 a day by a day by puffs inhalation inhalation twice a route. route. day by inhalation route. Colace 100 Colace 100 No 1capsul Q1D Colace 100 [facility] mg capsule mg capsule e(s) mg capsule Medical Take 1 Take 1 Take 1 capsule capsule capsule every day every day every day by oral by oral by oral route. route. route. ergocalcife ergocalcife No ergocalcif [facility] rol rol [facility] (vitamin (vitamin (vitamin D2) 1,250 D2) 1,250 D2) 1,250 mcg (50,000 mcg (50,000 mcg unit) unit) (50,000 capsule capsule unit) Take 1 Take 1 capsule capsule capsule Take 1 every week every week capsule by oral by oral every week route. route. by oral route. ferrous ferrous No 1 Q1D ferrous [facility] sulfate 324 sulfate 324 sulfate Medical mg (65 mg mg (65 mg 324 mg (65 iron) iron) mg iron) tablet,kti tablet,kit tablet,del yed release yed release ayed Take 1 Take 1 release tablet tablet Take 1 every day every day tablet by oral by oral every day route. route. by oral route. folic acid folic acid No 1 Q1D folic acid [facility] 400 mcg 400 mcg 400 mcg Medica l tablet Take tablet Take tablet 1 tablet 1 tablet Take 1 every day every day tablet by oral by oral every day route. route. by oral route. furosemide furosemide No furosemide [facility] 80 mg 80 mg 80 mg Medical tablet Take tablet Take tablet 1 tablet 1 tablet Take 1 every day every day tablet by oral by oral every day route for route for by oral 30 days. 30 days. route for 30 days. gabapentin gabapentin No gabapentin [facility] 300 mg 300 mg 300 mg Medical capsule capsule capsule Take 1 Take 1 Take 1 capsule 3 capsule 3 capsule 3 times a day times a day times a by oral by oral day by route for route for oral route 30 days. 30 days. for 30 days. ipratropium ipratropium No 2.5mL Q6H ipratropiu [facility] bromide bromide m bromide [facility]i jack 0.02 % 0.02 % 0.02 % solution solution solution for for for inhalation inhalation inhalation Inhale 2.5 Inhale 2.5 Inhale 2.5 mL every 6 mL every 6 mL every 6 hours by hours by hours by inhalation inhalation inhalation route. route. route. lactulose lactulose No lactulose [facility] 10 gram/15 10 gram/15 10 gram/15 Medical mL oral mL oral mL oral solution solution solution Lantus [place] No Lantus [facility] U-100 U-100 U-100 Medical Insulin 100 Insulin 100 Insulin unit/mL unit/mL 100 subcutaneou subcutaneou unit/mL s solution s solution subcutaneo Inject 35 Inject 35 us units every units every solution day by day by Inject 35 subcutaneou subcutaneou units s route. s route. every day by subcutaneo us route. lisinopril lisinopril No lisinopril [facility] 5 mg tablet 5 mg tablet 5 mg M edical Take 1 Take 1 tablet tablet tablet Take 1 every day every day tablet by oral by oral every day route for route for by oral 30 days. 30 days. route for 30 days. metformin metformin No metformin [facility] 500 mg 500 mg 500 mg Medical tablet Take tablet Take tablet 1 tablet 1 tablet Take 1 twice a day twice a day tablet by oral by oral twice a route for route for day by 30 days. 30 days. oral route for 30 days. Nystop Nystop No Nystop [facility] 100,000 100,000 100,000 Medica l unit/gram unit/gram unit/gram topical topical topical powder powder powder prednisone prednisone No prednisone [facility] 10 mg 10 mg 10 mg Medical tablet Take tablet Take tablet 1 tablet 1 tablet Take 1 twice a day twice a day tablet by oral by oral twice a route. route. day by oral route. prednisone prednisone No prednisone [facility] 5 mg tablet 5 mg tablet 5 mg M edical tablet ProAir HFA Pro[facility] HFA No 2puff(s Q4H ProAir HFA [facility] 90 90 ) 90 Medical mcg/actuati mcg/actuati mcg/actuat on aerosol on aerosol ion inhaler inhaler aerosol Inhale 2 Inhale 2 inhaler puffs every puffs every Inhale 2 4 hours by 4 hours by puffs inhalation inhalation every 4 route as route as hours by needed. needed. inhalation route as needed. sertraline sertraline No sertraline [facility] 100 mg 100 mg 100 mg Medical tablet Take tablet Take tablet 1 tablet 1 tablet Take 1 every day every day tablet by oral by oral every day route for route for by oral 30 days. 30 days. route for 30 days. spironolact spironolact No spironolac [facility] one 25 mg one 25 mg tone 25 mg Medical tablet Take tablet Take tablet 1 tablet 1 tablet Take 1 every day every day tablet by oral by oral every day route. route. by oral route. Tums Extra Tums Extra No 1 BID Tums Extra [facility] Strength Strength Strength Med ical Smoothies Smoothies Smoothies 300 mg (750 300 mg (750 300 mg mg) mg) (750 mg) chewable chewable chewable tablet Take tablet Take tablet 1 tablet 1 tablet Take 1 twice a day twice a day tablet by oral by oral twice a route. route. day by oral route. zinc oxide zinc oxide No zinc oxide [facility] topical topical topical Medica l ointment ointment ointment Apply to Apply to Apply to affected affected affected skin TID skin TID skin TID Jeri Jeri No 1 Q1D Jeri [facility] Allergy 180 Allergy 180 Allergy Medical mg tablet mg tablet 180 mg Take 1 Take 1 tablet tablet tablet Take 1 every day every day tablet by oral by oral every day route. route. by oral route. aripiprazol aripiprazol No aripiprazo [facility] e 10 mg e 10 mg le 10 mg Medic al tablet Take tablet Take tablet 1 tablet 1 tablet Take 1 every day every day tablet by oral by oral every day route at route at by oral bedtime for bedtime for route at 30 days. 30 days. bedtime for 30 days. aspirin 81 aspirin 81 No 1 Q1D aspirin 81 [facility] mg mg mg Medical tablet,kit tablet,kit tablet,del yed release yed release ayed Take 1 Take 1 release tablet tablet Take 1 every day every day tablet by oral by oral every day route. route. by oral route. atorvastati atorvastati No atorvastat [facility] n 40 mg n 40 mg in 40 mg Medic al tablet Take tablet Take tablet 1 tablet 1 tablet Take 1 every day every day tablet by oral by oral every day route at route at by oral bedtime for bedtime for route at 30 days. 30 days. bedtime for 30 days. benztropine benztropine No benztropin [facility] 1 mg tablet 1 mg tablet e 1 mg Medical Take 1 mg Take 1 mg tablet every day every day Take 1 mg by oral by oral every day route at route at by oral bedtime for bedtime for route at 30 days. 30 days. bedtime for 30 days. budesonide- budesonide- No budesonide [facility] formoterol formoterol -formotero [facility] HFA 160 HFA 160 l HFA 160 mcg-4.5 mcg-4.5 mcg-4.5 mcg/actuati mcg/actuati mcg/actuat on aerosol on aerosol ion inhaler inhaler aerosol Inhale 2 Inhale 2 inhaler puffs twice puffs twice Inhale 2 a day by a day by puffs inhalation inhalation twice a route. route. day by inhalation route. Colace 100 Colace 100 No 1capsul Q1D Colace 100 [facility] mg capsule mg capsule e(s) mg capsule Medical Take 1 Take 1 Take 1 capsule capsule capsule every day every day every day by oral by oral by oral route. route. route. ergocalcife ergocalcife No ergocalcif [facility] rol rol kristen Medical (vitamin (vitamin (vitamin D2) 1,250 D2) 1,250 D2) 1,250 mcg (50,000 mcg (50,000 mcg unit) unit) (50,000 capsule capsule unit) Take 1 Take 1 capsule capsule capsule Take 1 every week every week capsule by oral by oral every week route. route. by oral route. ferrous ferrous No 1 Q1D ferrous [facility] sulfate 324 sulfate 324 sulfate Medical mg (65 mg mg (65 mg 324 mg (65 iron) iron) mg iron) tablet,kit tablet,kit tablet,del yed release yed release ayed Take 1 Take 1 release tablet tablet Take 1 every day every day tablet by oral by oral every day route. route. by oral route. folic acid folic acid No 1 Q1D folic acid [facility] 400 mcg 400 mcg 400 mcg Medica l tablet Take tablet Take tablet 1 tablet 1 tablet Take 1 every day every day tablet by oral by oral every day route. route. by oral route. furosemide furosemide No furosemide [facility] 80 mg 80 mg 80 mg Medical tablet Take tablet Take tablet 1 tablet 1 tablet Take 1 every day every day tablet by oral by oral every day route for route for by oral 30 days. 30 days. route for 30 days. gabapentin gabapentin No gabapentin [facility] 300 mg 300 mg 300 mg Medical capsule capsule capsule Take 1 Take 1 Take 1 capsule 3 capsule 3 capsule 3 times a day times a day times a by oral by oral day by route for route for oral route 30 days. 30 days. for 30 days. ipratropium ipratropium No 2.5mL Q6H ipratropiu [facility] bromide bromide m bromide [facility] jack 0.02 % 0.02 % 0.02 % solution solution solution for for for inhalation inhalation inhalation Inhale 2.5 Inhale 2.5 Inhale 2.5 mL every 6 mL every 6 mL every 6 hours by hours by hours by inhalation inhalation inhalation route. route. route. lactulose lactulose No lactulose [facility] 10 gram/15 10 gram/15 10 gram/15 Medical mL oral mL oral mL oral solution solution solution Lantus Lantus No 39unit( Q1D Lantus [facility] U-100 U-100 s) U-100 Medical Insulin 100 Insulin 100 Insulin unit/mL unit/mL 100 subcutaneou subcutaneou unit/mL s solution s solution subcutaneo Inject 39 Inject 39 us units every units every solution day by day by Inject 39 subcutaneou subcutaneou units s route. s route. every day by subcutaneo us route. lisinopril lisinopril No lisinopril [facility] 5 mg tablet 5 mg tablet 5 mg M edical Take 1 Take 1 tablet tablet tablet Take 1 every day every day tablet by oral by oral every day route for route for by oral 30 days. 30 days. route for 30 days. metformin metformin No metformin [facility] 500 mg 500 mg 500 mg Medical tablet Take tablet Take tablet 1 tablet 1 tablet Take 1 twice a day twice a day tablet by oral by oral twice a route for route for day by 30 days. 30 days. oral route for 30 days. Nystop Nystop No Nystop [facility] 100,000 100,000 100,000 Medica l unit/gram unit/gram unit/gram topical topical topical powder powder powder ProAir HFA ProAir HFA No 2puff(s Q4H ProAir HFA [facility] 90 90 ) 90 Medical mcg/actuati mcg/actuati mcg/actuat on aerosol on aerosol ion inhaler inhaler aerosol Inhale 2 Inhale 2 inhaler puffs every puffs every Inhale 2 4 hours by 4 hours by puffs inhalation inhalation every 4 route as route as hours by needed. needed. inhalation route as needed. sertraline sertraline No sertraline [facility] 100 mg 100 mg 100 mg Medical tablet Take tablet Take tablet 1 tablet 1 tablet Take 1 every day every day tablet by oral by oral every day route for route for by oral 30 days. 30 days. route for 30 days. spironolact spironolact No spironolac [facility] one 25 mg one 25 mg tone 25 mg Medical tablet Take tablet Take tablet 1 tablet 1 tablet Take 1 every day every day tablet by oral by oral every day route. route. by oral route. Tums Extra Tums Extra No 1 BID Tums Extra [facility] Strength Strength Strength Med ical Smoothies Smoothies Smoothies 300 mg (750 300 mg (750 300 mg mg) mg) (750 mg) chewable chewable chewable tablet Take tablet Take tablet 1 tablet 1 tablet Take 1 twice a day twice a day tablet by oral by oral twice a route. route. day by oral route. zinc oxide zinc oxide No zinc oxide [facility] topical topical topical Medica l ointment ointment ointment Apply to Apply to Apply to affected affected affected skin TID skin TID skin TID Jeri Jeri No 1 Q1D Jeri [facility] Allergy 180 Allergy 180 Allergy Medical mg tablet mg tablet 180 mg Take 1 Take 1 tablet tablet tablet Take 1 every day every day tablet by oral by oral every day route. route. by oral route. aripiprazol aripiprazol No aripiprazo [facility] e 10 mg e 10 mg le 10 mg Medic al tablet Take tablet Take tablet 1 tablet 1 tablet Take 1 every day every day tablet by oral by oral every day route at route at by oral bedtime for bedtime for route at 30 days. 30 days. bedtime for 30 days. aspirin 81 aspirin 81 No 1 Q1D aspirin 81 [facility] mg mg mg Medical tablet,kit tablet,kit tablet,del yed release yed release ayed Take 1 Take 1 release tablet tablet Take 1 every day every day tablet by oral by oral every day route. route. by oral route. atorvastati atorvastati No atorvastat [facility] n 40 mg n 40 mg in 40 mg Medic al tablet Take tablet Take tablet 1 tablet 1 tablet Take 1 every day every day tablet by oral by oral every day route at route at by oral bedtime for bedtime for route at 30 days. 30 days. bedtime for 30 days. benztropine benztropine No benztropin [facility] 1 mg tablet 1 mg tablet e 1 mg Medical Take 1 mg Take 1 mg tablet every day every day Take 1 mg by oral by oral every day route at route at by oral bedtime for bedtime for route at 30 days. 30 days. bedtime for 30 days. budesonide- budesonide- No budesonide [facility] formoterol formoterol -formotero [facility] HFA 160 HFA 160 l HFA 160 mcg-4.5 mcg-4.5 mcg-4.5 mcg/actuati mcg/actuati mcg/actuat on aerosol on aerosol ion inhaler inhaler aerosol Inhale 2 Inhale 2 inhaler puffs twice puffs twice Inhale 2 a day by a day by puffs inhalation inhalation twice a route. route. day by inhalation route. Colace 100 Colace 100 No 1capsul Q1D Colace 100 [facility] mg capsule mg capsule e(s) mg capsule Medical Take 1 Take 1 Take 1 capsule capsule capsule every day every day every day by oral by oral by oral route. route. route. doxycycline doxycycline No doxycyclin [facility] monohydrate monohydrate e M edical 100 mg 100 mg monohydrat capsule capsule e 100 mg capsule ergocalcife ergocalcife No ergocalcif [facility] rol rol kristen Medical (vitamin (vitamin (vitamin D2) 1,250 D2) 1,250 D2) 1,250 mcg (50,000 mcg (50,000 mcg unit) unit) (50,000 capsule capsule unit) Take 1 Take 1 capsule capsule capsule Take 1 every week every week capsule by oral by oral every week route. route. by oral route. ferrous ferrous No 1 Q1D ferrous [facility] sulfate 324 sulfate 324 sulfate Medical mg (65 mg mg (65 mg 324 mg (65 iron) iron) mg iron) tablet,kit tablet,kit tablet,del yed release yed release ayed Take 1 Take 1 release tablet tablet Take 1 every day every day tablet by oral by oral every day route. route. by oral route. folic acid folic acid No 1 Q1D folic acid [facility] 400 mcg 400 mcg 400 mcg Medica l tablet Take tablet Take tablet 1 tablet 1 tablet Take 1 every day every day tablet by oral by oral every day route. route. by oral route. furosemide furosemide No furosemide [facility] 80 mg 80 mg 80 mg Medical tablet Take tablet Take tablet 1 tablet 1 tablet Take 1 every day every day tablet by oral by oral every day route for route for by oral 30 days. 30 days. route for 30 days. gabapentin gabapentin No gabapentin [facility] 300 mg 300 mg 300 mg Medical capsule capsule capsule Take 1 Take 1 Take 1 capsule 3 capsule 3 capsule 3 times a day times a day times a by oral by oral day by route for route for oral route 30 days. 30 days. for 30 days. ipratropium ipratropium No 2.5mL Q6H ipratropiu [facility] bromide bromide m bromide Medi jack 0.02 % 0.02 % 0.02 % solution solution solution for for for inhalation inhalation inhalation Inhale 2.5 Inhale 2.5 Inhale 2.5 mL every 6 mL every 6 mL every 6 hours by hours by hours by inhalation inhalation inhalation route. route. route. lactulose lactulose No lactulose [facility] 10 gram/15 10 gram/15 10 gram/15 Medical mL oral mL oral mL oral solution solution solution Lantus Lantus No Lantus [facility] U-100 U-100 U-100 Medical Insulin 100 Insulin 100 Insulin unit/mL unit/mL 100 subcutaneou subcutaneou unit/mL s solution s solution subcutaneo Inject 39 Inject 39 us units every units every solution day by day by Inject 39 subcutaneou subcutaneou units s route. s route. every day by subcutaneo us route. lisinopril lisinopril No lisinopril [facility] 5 mg tablet 5 mg tablet 5 mg M edical Take 1 Take 1 tablet tablet tablet Take 1 every day every day tablet by oral by oral every day route for route for by oral 30 days. 30 days. route for 30 days. metformin metformin No metformin [facility] 500 mg 500 mg 500 mg Medical tablet Take tablet Take tablet 1 tablet 1 tablet Take 1 twice a day twice a day tablet by oral by oral twice a route for route for day by 30 days. 30 days. oral route for 30 days. Nystop Nystop No Nystop [facility] 100,000 100,000 100,000 Medica l unit/gram unit/gram unit/gram topical topical topical powder powder powder ProAir HFA ProAir HFA No 2puff(s Q4H ProAir HFA [facility] 90 90 ) 90 Medical mcg/actuati mcg/actuati mcg/actuat on aerosol on aerosol ion inhaler inhaler aerosol Inhale 2 Inhale 2 inhaler puffs every puffs every Inhale 2 4 hours by 4 hours by puffs inhalation inhalation every 4 route as route as hours by needed. needed. inhalation route as needed. sertraline sertraline No sertraline [facility] 100 mg 100 mg 100 mg Medical tablet Take tablet Take tablet 1 tablet 1 tablet Take 1 every day every day tablet by oral by oral every day route for route for by oral 30 days. 30 days. route for 30 days. spironolact spironolact No spironolac [facility] one 25 mg one 25 mg tone 25 mg Medical tablet Take tablet Take tablet 1 tablet 1 tablet Take 1 every day every day tablet by oral by oral every day route. route. by oral route. Tums Extra Tums Extra No 1 BID Tums Extra [facility] Strength Strength Strength Med ical Smoothies Smoothies Smoothies 300 mg (750 300 mg (750 300 mg mg) mg) (750 mg) chewable chewable chewable tablet Take tablet Take tablet 1 tablet 1 tablet Take 1 twice a day twice a day tablet by oral by oral twice a route. route. day by oral route. zinc oxide zinc oxide No zinc oxide [facility] topical topical topical Medica l ointment ointment ointment Apply to Apply to Apply to affected affected affected skin TID skin TID skin TID Jeri Jeri No 1 Q1D Jeri [facility] Allergy 180 Allergy 180 Allergy Medical mg tablet mg tablet 180 mg Take 1 Take 1 tablet tablet tablet Take 1 every day every day tablet by oral by oral every day route. route. by oral route. aripiprazol aripiprazol No aripiprazo [facility] e 10 mg e 10 mg le 10 mg Medic al tablet Take tablet Take tablet 1 tablet 1 tablet Take 1 every day every day tablet by oral by oral every day route at route at by oral bedtime for bedtime for route at 30 days. 30 days. bedtime for 30 days. aspirin 81 aspirin 81 No 1 Q1D aspirin 81 [facility] mg mg mg Medical tablet,kit tablet,kit tablet,del yed release yed release ayed Take 1 Take 1 release tablet tablet Take 1 every day every day tablet by oral by oral every day route. route. by oral route. atorvastati atorvastati No atorvastat [facility] n 40 mg n 40 mg in 40 mg Medic al tablet Take tablet Take tablet 1 tablet 1 tablet Take 1 every day every day tablet by oral by oral every day route at route at by oral bedtime for bedtime for route at 30 days. 30 days. bedtime for 30 days. benztropine benztropine No benztropin [facility] 1 mg tablet 1 mg tablet e 1 mg Medical Take 1 mg Take 1 mg tablet every day every day Take 1 mg by oral by oral every day route at route at by oral bedtime for bedtime for route at 30 days. 30 days. bedtime for 30 days. budesonide- budesonide- No budesonide [facility] formoterol formoterol -formotero [facility] HFA 160 HFA 160 l HFA 160 mcg-4.5 mcg-4.5 mcg-4.5 mcg/actuati mcg/actuati mcg/actuat on aerosol on aerosol ion inhaler inhaler aerosol Inhale 2 Inhale 2 inhaler puffs twice puffs twice Inhale 2 a day by a day by puffs inhalation inhalation twice a route. route. day by inhalation route. Colace 100 Colace 100 No 1capsul Q1D Colace 100 [facility] mg capsule mg capsule e(s) mg capsule Medical Take 1 Take 1 Take 1 capsule capsule capsule every day every day every day by oral by oral by oral route. route. route. ergocalcife ergocalcife No ergocalcif [facility] rol rol kristen Medical (vitamin (vitamin (vitamin D2) 1,250 D2) 1,250 D2) 1,250 mcg (50,000 mcg (50,000 mcg unit) unit) (50,000 capsule capsule unit) Take 1 Take 1 capsule capsule capsule Take 1 every week every week capsule by oral by oral every week route. route. by oral route. ferrous ferrous No 1 Q1D ferrous [facility] sulfate 324 sulfate 324 sulfate Medical mg (65 mg mg (65 mg 324 mg (65 iron) iron) mg iron) tablet,kit tablet,kit tablet,del yed release yed release ayed Take 1 Take 1 release tablet tablet Take 1 every day every day tablet by oral by oral every day route. route. by oral route. folic acid folic acid No 1 Q1D folic acid [facility] 400 mcg 400 mcg 400 mcg Medica l tablet Take tablet Take tablet 1 tablet 1 tablet Take 1 every day every day tablet by oral by oral every day route. route. by oral route. furosemide furosemide No furosemide [facility] 80 mg 80 mg 80 mg Medical tablet Take tablet Take tablet 1 tablet 1 tablet Take 1 every day every day tablet by oral by oral every day route for route for by oral 30 days. 30 days. route for 30 days. gabapentin gabapentin No gabapentin [facility] 300 mg 300 mg 300 mg Medical capsule capsule capsule Take 1 Take 1 Take 1 capsule 3 capsule 3 capsule 3 times a day times a day times a by oral by oral day by route for route for oral route 30 days. 30 days. for 30 days. ipratropium ipratropium No 2.5mL Q6H ipratropiu [facility] bromide bromide m bromide Medi jack 0.02 % 0.02 % 0.02 % solution solution solution for for for inhalation inhalation inhalation Inhale 2.5 Inhale 2.5 Inhale 2.5 mL every 6 mL every 6 mL every 6 hours by hours by hours by inhalation inhalation inhalation route. route. route. lactulose lactulose No lactulose [facility] 10 gram/15 10 gram/15 10 gram/15 Medical mL oral mL oral mL oral solution solution solution Lantus Lantus No Lantus [facility] U-100 U-100 U-100 Medical Insulin 100 Insulin 100 Insulin unit/mL unit/mL 100 subcutaneou subcutaneou unit/mL s solution s solution subcutaneo Inject 39 Inject 39 us units every units every solution day by day by Inject 39 subcutaneou subcutaneou units s route. s route. every day by subcutaneo us route. lisinopril lisinopril No lisinopril [facility] 5 mg tablet 5 mg tablet 5 mg M edical Take 1 Take 1 tablet tablet tablet Take 1 every day every day tablet by oral by oral every day route for route for by oral 30 days. 30 days. route for 30 days. metformin metformin No metformin [facility] 500 mg 500 mg 500 mg Medical tablet Take tablet Take tablet 1 tablet 1 tablet Take 1 twice a day twice a day tablet by oral by oral twice a route for route for day by 30 days. 30 days. oral route for 30 days. Nystop Nystop No Nystop [facility] 100,000 100,000 100,000 Medica l unit/gram unit/gram unit/gram topical topical topical powder powder powder ProAir HFA Pro[facility] HFA No 2puff(s Q4H ProAir HFA [facility] 90 90 ) 90 Medical mcg/actuati mcg/actuati mcg/actuat on aerosol on aerosol ion inhaler inhaler aerosol Inhale 2 Inhale 2 inhaler puffs every puffs every Inhale 2 4 hours by 4 hours by puffs inhalation inhalation every 4 route as route as hours by needed. needed. inhalation route as needed. sertraline sertraline No sertraline [facility] 100 mg 100 mg 100 mg Medical tablet Take tablet Take tablet 1 tablet 1 tablet Take 1 every day every day tablet by oral by oral every day route for route for by oral 30 days. 30 days. route for 30 days. spironolact spironolact No spironolac [facility] one 25 mg one 25 mg tone 25 mg Medical tablet Take tablet Take tablet 1 tablet 1 tablet Take 1 every day every day tablet by oral by oral every day route. route. by oral route. Tums Extra Tums Extra No 1 BID Tums Extra [facility] Strength Strength Strength Med ical Smoothies Smoothies Smoothies 300 mg (750 300 mg (750 300 mg mg) mg) (750 mg) chewable chewable chewable tablet Take tablet Take tablet 1 tablet 1 tablet Take 1 twice a day twice a day tablet by oral by oral twice a route. route. day by oral route. zinc oxide zinc oxide No zinc oxide [facility] topical topical topical Medica l ointment ointment ointment Apply to Apply to Apply to affected affected affected skin TID skin TID skin TID Jeri Jeri No 1 Q1D Jeri [facility] Allergy 180 Allergy 180 Allergy Medical mg tablet mg tablet 180 mg Take 1 Take 1 tablet tablet tablet Take 1 every day every day tablet by oral by oral every day route. route. by oral route. aripiprazol aripiprazol No aripiprazo [facility] e 10 mg e 10 mg le 10 mg Medic al tablet Take tablet Take tablet 1 tablet 1 tablet Take 1 every day every day tablet by oral by oral every day route at route at by oral bedtime for bedtime for route at 30 days. 30 days. bedtime for 30 days. aspirin 81 aspirin 81 No 1 Q1D aspirin 81 [facility] mg mg mg Medical tablet,kit tablet,kit tablet,del yed release yed release ayed Take 1 Take 1 release tablet tablet Take 1 every day every day tablet by oral by oral every day route. route. by oral route. atorvastati atorvastati No atorvastat [facility] n 40 mg n 40 mg in 40 mg Medic al tablet Take tablet Take tablet 1 tablet 1 tablet Take 1 every day every day tablet by oral by oral every day route at route at by oral bedtime for bedtime for route at 30 days. 30 days. bedtime for 30 days. benztropine benztropine No benztropin [facility] 1 mg tablet 1 mg tablet e 1 mg Medical Take 1 mg Take 1 mg tablet every day every day Take 1 mg by oral by oral every day route at route at by oral bedtime for bedtime for route at 30 days. 30 days. bedtime for 30 days. budesonide- budesonide- No budesonide [facility] formoterol formoterol -formotero [facility] HFA 160 HFA 160 l HFA 160 mcg-4.5 mcg-4.5 mcg-4.5 mcg/actuati mcg/actuati mcg/actuat on aerosol on aerosol ion inhaler inhaler aerosol Inhale 2 Inhale 2 inhaler puffs twice puffs twice Inhale 2 a day by a day by puffs inhalation inhalation twice a route. route. day by inhalation route. Colace 100 Colace 100 No 1capsul Q1D Colace 100 [facility] mg capsule mg capsule e(s) mg capsule Medical Take 1 Take 1 Take 1 capsule capsule capsule every day every day every day by oral by oral by oral route. route. route. ergocalcife ergocalcife No ergocalcif [facility] rol rol kristen Medical (vitamin (vitamin (vitamin D2) 1,250 D2) 1,250 D2) 1,250 mcg (50,000 mcg (50,000 mcg unit) unit) (50,000 capsule capsule unit) Take 1 Take 1 capsule capsule capsule Take 1 every week every week capsule by oral by oral every week route. route. by oral route. ferrous ferrous No 1 Q1D ferrous [facility] sulfate 324 sulfate 324 sulfate Medical mg (65 mg mg (65 mg 324 mg (65 iron) iron) mg iron) tablet,kit tablet,kit tablet,del yed release yed release ayed Take 1 Take 1 release tablet tablet Take 1 every day every day tablet by oral by oral every day route. route. by oral route. folic acid folic acid No 1 Q1D folic acid [facility] 400 mcg 400 mcg 400 mcg Medica l tablet Take tablet Take tablet 1 tablet 1 tablet Take 1 every day every day tablet by oral by oral every day route. route. by oral route. furosemide furosemide No furosemide [facility] 80 mg 80 mg 80 mg Medical tablet Take tablet Take tablet 1 tablet 1 tablet Take 1 every day every day tablet by oral by oral every day route for route for by oral 30 days. 30 days. route for 30 days. gabapentin gabapentin No gabapentin [facility] 300 mg 300 mg 300 mg Medical capsule capsule capsule Take 1 Take 1 Take 1 capsule 3 capsule 3 capsule 3 times a day times a day times a by oral by oral day by route for route for oral route 30 days. 30 days. for 30 days. ipratropium ipratropium No 2.5mL Q6H ipratropiu [facility] bromide bromide m bromide Medi jack 0.02 % 0.02 % 0.02 % solution solution solution for for for inhalation inhalation inhalation Inhale 2.5 Inhale 2.5 Inhale 2.5 mL every 6 mL every 6 mL every 6 hours by hours by hours by inhalation inhalation inhalation route. route. route. lactulose lactulose No lactulose [facility] 10 gram/15 10 gram/15 10 gram/15 Medical mL oral mL oral mL oral solution solution solution Lantus Lantus No Lantus [facility] U-100 U-100 U-100 Medical Insulin 100 Insulin 100 Insulin unit/mL unit/mL 100 subcutaneou subcutaneou unit/mL s solution s solution subcutaneo INJECT 39U INJECT 39U us UNDER THE UNDER THE solution SKIN EVERY SKIN EVERY INJECT 39U DAY DAY UNDER THE SKIN EVERY DAY lisinopril lisinopril No lisinopril [facility] 5 mg tablet 5 mg tablet 5 mg M edical Take 1 Take 1 tablet tablet tablet Take 1 every day every day tablet by oral by oral every day route for route for by oral 30 days. 30 days. route for 30 days. metformin metformin No metformin [facility] 500 mg 500 mg 500 mg Medical tablet Take tablet Take tablet 1 tablet 1 tablet Take 1 twice a day twice a day tablet by oral by oral twice a route for route for day by 30 days. 30 days. oral route for 30 days. Nystop Nystop No Nystop [facility] 100,000 100,000 100,000 Medica l unit/gram unit/gram unit/gram topical topical topical powder powder powder ProAir HFA Pro[facility] HFA No 2puff(s Q4H ProAir HFA [facility] 90 90 ) 90 Medical mcg/actuati mcg/actuati mcg/actuat on aerosol on aerosol ion inhaler inhaler aerosol Inhale 2 Inhale 2 inhaler puffs every puffs every Inhale 2 4 hours by 4 hours by puffs inhalation inhalation every 4 route as route as hours by needed. needed. inhalation route as needed. sertraline sertraline No sertraline [facility] 100 mg 100 mg 100 mg Medical tablet Take tablet Take tablet 1 tablet 1 tablet Take 1 every day every day tablet by oral by oral every day route for route for by oral 30 days. 30 days. route for 30 days. spironolact spironolact No spironolac [facility] one 25 mg one 25 mg tone 25 mg Medical tablet Take tablet Take tablet 1 tablet 1 tablet Take 1 every day every day tablet by oral by oral every day route. route. by oral route. Tums Extra Tums Extra No 1 BID Tums Extra [facility] Strength Strength Strength Med ical Smoothies Smoothies Smoothies 300 mg (750 300 mg (750 300 mg mg) mg) (750 mg) chewable chewable chewable tablet Take tablet Take tablet 1 tablet 1 tablet Take 1 twice a day twice a day tablet by oral by oral twice a route. route. day by oral route. zinc oxide zinc oxide No zinc oxide [facility] topical topical topical Medica l ointment ointment ointment Apply to Apply to Apply to affected affected affected skin TID skin TID skin TID Jeri Jeri No 1 Q1D Jeri [facility] Allergy 180 Allergy 180 Allergy Medical mg tablet mg tablet 180 mg Take 1 Take 1 tablet tablet tablet Take 1 every day every day tablet by oral by oral every day route. route. by oral route. aripiprazol aripiprazol No aripiprazo [facility] e 10 mg e 10 mg le 10 mg Medic al tablet Take tablet Take tablet 1 tablet 1 tablet Take 1 every day every day tablet by oral by oral every day route at route at by oral bedtime for bedtime for route at 30 days. 30 days. bedtime for 30 days. aspirin 81 aspirin 81 No 1 Q1D aspirin 81 [facility] mg mg mg Medical tablet,kit tablet,kit tablet,del yed release yed release ayed Take 1 Take 1 release tablet tablet Take 1 every day every day tablet by oral by oral every day route. route. by oral route. atorvastati atorvastati No atorvastat [facility] n 40 mg n 40 mg in 40 mg Medic al tablet Take tablet Take tablet 1 tablet 1 tablet Take 1 every day every day tablet by oral by oral every day route at route at by oral bedtime for bedtime for route at 30 days. 30 days. bedtime for 30 days. benztropine benztropine No benztropin [facility] 1 mg tablet 1 mg tablet e 1 mg Medical Take 1 mg Take 1 mg tablet every day every day Take 1 mg by oral by oral every day route at route at by oral bedtime for bedtime for route at 30 days. 30 days. bedtime for 30 days. budesonide- budesonide- No budesonide [facility] formoterol formoterol -formotero [facility] HFA 160 HFA 160 l HFA 160 mcg-4.5 mcg-4.5 mcg-4.5 mcg/actuati mcg/actuati mcg/actuat on aerosol on aerosol ion inhaler inhaler aerosol Inhale 2 Inhale 2 inhaler puffs twice puffs twice Inhale 2 a day by a day by puffs inhalation inhalation twice a route. route. day by inhalation route. Colace 100 Colace 100 No 1capsul Q1D Colace 100 [facility] mg capsule mg capsule e(s) mg capsule Medical Take 1 Take 1 Take 1 capsule capsule capsule every day every day every day by oral by oral by oral route. route. route. ergocalcife ergocalcife No ergocalcif [facility] rol rol kristen Medical (vitamin (vitamin (vitamin D2) 1,250 D2) 1,250 D2) 1,250 mcg (50,000 mcg (50,000 mcg unit) unit) (50,000 capsule capsule unit) Take 1 Take 1 capsule capsule capsule Take 1 every week every week capsule by oral by oral every week route. route. by oral route. ferrous ferrous No 1 Q1D ferrous [facility] sulfate 324 sulfate 324 sulfate Medical mg (65 mg mg (65 mg 324 mg (65 iron) iron) mg iron) tablet,kit tablet,kit tablet,del yed release yed release ayed Take 1 Take 1 release tablet tablet Take 1 every day every day tablet by oral by oral every day route. route. by oral route. folic acid folic acid No 1 Q1D folic acid [facility] 400 mcg 400 mcg 400 mcg Medica l tablet Take tablet Take tablet 1 tablet 1 tablet Take 1 every day every day tablet by oral by oral every day route. route. by oral route. furosemide furosemide No furosemide [facility] 80 mg 80 mg 80 mg Medical tablet Take tablet Take tablet 1 tablet 1 tablet Take 1 every day every day tablet by oral by oral every day route for route for by oral 30 days. 30 days. route for 30 days. gabapentin gabapentin No gabapentin [facility] 300 mg 300 mg 300 mg Medical capsule capsule capsule Take 1 Take 1 Take 1 capsule 3 capsule 3 capsule 3 times a day times a day times a by oral by oral day by route for route for oral route 30 days. 30 days. for 30 days. ipratropium ipratropium No 2.5mL Q6H ipratropiu [facility] bromide bromide m bromide [facility]i jack 0.02 % 0.02 % 0.02 % solution solution solution for for for inhalation inhalation inhalation Inhale 2.5 Inhale 2.5 Inhale 2.5 mL every 6 mL every 6 mL every 6 hours by hours by hours by inhalation inhalation inhalation route. route. route. lactulose lactulose No lactulose [facility] 10 gram/15 10 gram/15 10 gram/15 Medical mL oral mL oral mL oral solution solution solution Lantus Lantus No Lantus [facility] U-100 U-100 U-100 Medical Insulin 100 Insulin 100 Insulin unit/mL unit/mL 100 subcutaneou subcutaneou unit/mL s solution s solution subcutaneo INJECT 39U INJECT 39U us UNDER THE UNDER THE solution SKIN EVERY SKIN EVERY INJECT 39U DAY DAY UNDER THE SKIN EVERY DAY lisinopril lisinopril No lisinopril [facility] 5 mg tablet 5 mg tablet 5 mg M edical Take 1 Take 1 tablet tablet tablet Take 1 every day every day tablet by oral by oral every day route for route for by oral 30 days. 30 days. route for 30 days. metformin metformin No metformin [facility] 500 mg 500 mg 500 mg Medical tablet Take tablet Take tablet 1 tablet 1 tablet Take 1 twice a day twice a day tablet by oral by oral twice a route for route for day by 30 days. 30 days. oral route for 30 days. Nystop Nystop No Nystop [facility] 100,000 100,000 100,000 Medica l unit/gram unit/gram unit/gram topical topical topical powder powder powder ProAir HFA ProAir HFA No 2puff(s Q4H ProAir HFA [facility] 90 90 ) 90 Medical mcg/actuati mcg/actuati mcg/actuat on aerosol on aerosol ion inhaler inhaler aerosol Inhale 2 Inhale 2 inhaler puffs every puffs every Inhale 2 4 hours by 4 hours by puffs inhalation inhalation every 4 route as route as hours by needed. needed. inhalation route as needed. sertraline sertraline No sertraline [facility] 100 mg 100 mg 100 mg Medical tablet Take tablet Take tablet 1 tablet 1 tablet Take 1 every day every day tablet by oral by oral every day route for route for by oral 30 days. 30 days. route for 30 days. spironolact spironolact No spironolac [facility] one 25 mg one 25 mg tone 25 mg Medical tablet Take tablet Take tablet 1 tablet 1 tablet Take 1 every day every day tablet by oral by oral every day route. route. by oral route. Tums Extra Tums Extra No 1 BID Tums Extra [facility] Strength Strength Strength Med ical Smoothies Smoothies Smoothies 300 mg (750 300 mg (750 300 mg mg) mg) (750 mg) chewable chewable chewable tablet Take tablet Take tablet 1 tablet 1 tablet Take 1 twice a day twice a day tablet by oral by oral twice a route. route. day by oral route. zinc oxide zinc oxide No zinc oxide [facility] topical topical topical Medica l ointment ointment ointment Apply to Apply to Apply to affected affected affected skin TID skin TID skin TID Jeri Jeri No 1 Q1D Jeri [facility] Allergy 180 Allergy 180 Allergy Medical mg tablet mg tablet 180 mg Take 1 Take 1 tablet tablet tablet Take 1 every day every day tablet by oral by oral every day route. route. by oral route. aripiprazol aripiprazol No aripiprazo [facility] e 10 mg e 10 mg le 10 mg Medic al tablet Take tablet Take tablet 1 tablet 1 tablet Take 1 every day every day tablet by oral by oral every day route at route at by oral bedtime for bedtime for route at 30 days. 30 days. bedtime for 30 days. aspirin 81 aspirin 81 No 1 Q1D aspirin 81 [facility] mg mg mg Medical tablet,kit tablet,kit tablet,del yed release yed release ayed Take 1 Take 1 release tablet tablet Take 1 every day every day tablet by oral by oral every day route. route. by oral route. atorvastati atorvastati No atorvastat [facility] n 40 mg n 40 mg in 40 mg Medic al tablet Take tablet Take tablet 1 tablet 1 tablet Take 1 every day every day tablet by oral by oral every day route at route at by oral bedtime for bedtime for route at 30 days. 30 days. bedtime for 30 days. benztropine benztropine No benztropin [facility] 1 mg tablet 1 mg tablet e 1 mg Medical Take 1 mg Take 1 mg tablet every day every day Take 1 mg by oral by oral every day route at route at by oral bedtime for bedtime for route at 30 days. 30 days. bedtime for 30 days. budesonide- budesonide- No budesonide [facility] formoterol formoterol -formotero Medical HFA 160 HFA 160 l HFA 160 mcg-4.5 mcg-4.5 mcg-4.5 mcg/actuati mcg/actuati mcg/actuat on aerosol on aerosol ion inhaler inhaler aerosol Inhale 2 Inhale 2 inhaler puffs twice puffs twice Inhale 2 a day by a day by puffs inhalation inhalation twice a route. route. day by inhalation route. Colace 100 Colace 100 No 1capsul Q1D Colace 100 [facility] mg capsule mg capsule e(s) mg capsule Medical Take 1 Take 1 Take 1 capsule capsule capsule every day every day every day by oral by oral by oral route. route. route. ergocalcife ergocalcife No ergocalcif [facility] rol rol kristen Medical (vitamin (vitamin (vitamin D2) 1,250 D2) 1,250 D2) 1,250 mcg (50,000 mcg (50,000 mcg unit) unit) (50,000 capsule capsule unit) Take 1 Take 1 capsule capsule capsule Take 1 every week every week capsule by oral by oral every week route. route. by oral route. ferrous ferrous No 1 Q1D ferrous [facility] sulfate 324 sulfate 324 sulfate Medical mg (65 mg mg (65 mg 324 mg (65 iron) iron) mg iron) tablet,kit tablet,kit tablet,del yed release yed release ayed Take 1 Take 1 release tablet tablet Take 1 every day every day tablet by oral by oral every day route. route. by oral route. folic acid folic acid No 1 Q1D folic acid [facility] 400 mcg 400 mcg 400 mcg Medica l tablet Take tablet Take tablet 1 tablet 1 tablet Take 1 every day every day tablet by oral by oral every day route. route. by oral route. furosemide furosemide No furosemide [facility] 80 mg 80 mg 80 mg Medical tablet Take tablet Take tablet 1 tablet 1 tablet Take 1 every day every day tablet by oral by oral every day route for route for by oral 30 days. 30 days. route for 30 days. gabapentin gabapentin No gabapentin [facility] 300 mg 300 mg 300 mg Medical capsule capsule capsule Take 1 Take 1 Take 1 capsule 3 capsule 3 capsule 3 times a day times a day times a by oral by oral day by route for route for oral route 30 days. 30 days. for 30 days. ipratropium ipratropium No 2.5mL Q6H ipratropiu [facility] bromide bromide m bromide [facility] jack 0.02 % 0.02 % 0.02 % solution solution solution for for for inhalation inhalation inhalation Inhale 2.5 Inhale 2.5 Inhale 2.5 mL every 6 mL every 6 mL every 6 hours by hours by hours by inhalation inhalation inhalation route. route. route. lactulose lactulose No lactulose [facility] 10 gram/15 10 gram/15 10 gram/15 Medical mL oral mL oral mL oral solution solution solution Lantus Lantus No Lantus [facility] U-100 U-100 U-100 Medical Insulin 100 Insulin 100 Insulin unit/mL unit/mL 100 subcutaneou subcutaneou unit/mL s solution s solution subcutaneo INJECT 39U INJECT 39U us UNDER THE UNDER THE solution SKIN EVERY SKIN EVERY INJECT 39U DAY DAY UNDER THE SKIN EVERY DAY lisinopril lisinopril No lisinopril [facility] 5 mg tablet 5 mg tablet 5 mg M edical Take 1 Take 1 tablet tablet tablet Take 1 every day every day tablet by oral by oral every day route for route for by oral 30 days. 30 days. route for 30 days. metformin metformin No metformin [facility] 500 mg 500 mg 500 mg Medical tablet Take tablet Take tablet 1 tablet 1 tablet Take 1 twice a day twice a day tablet by oral by oral twice a route for route for day by 30 days. 30 days. oral route for 30 days. Nystop Nystop No Nystop [facility] 100,000 100,000 100,000 Medica l unit/gram unit/gram unit/gram topical topical topical powder powder powder ProAir HFA ProAir HFA No 2puff(s Q4H ProAir HFA [facility] 90 90 ) 90 Medical mcg/actuati mcg/actuati mcg/actuat on aerosol on aerosol ion inhaler inhaler aerosol Inhale 2 Inhale 2 inhaler puffs every puffs every Inhale 2 4 hours by 4 hours by puffs inhalation inhalation every 4 route as route as hours by needed. needed. inhalation route as needed. sertraline sertraline No sertraline [facility] 100 mg 100 mg 100 mg Medical tablet Take tablet Take tablet 1 tablet 1 tablet Take 1 every day every day tablet by oral by oral every day route for route for by oral 30 days. 30 days. route for 30 days. spironolact spironolact No spironolac [facility] one 25 mg one 25 mg tone 25 mg Medical tablet Take tablet Take tablet 1 tablet 1 tablet Take 1 every day every day tablet by oral by oral every day route. route. by oral route. Tums Extra Tums Extra No 1 BID Tums Extra [facility] Strength Strength Strength Med ical Smoothies Smoothies Smoothies 300 mg (750 300 mg (750 300 mg mg) mg) (750 mg) chewable chewable chewable tablet Take tablet Take tablet 1 tablet 1 tablet Take 1 twice a day twice a day tablet by oral by oral twice a route. route. day by oral route. zinc oxide zinc oxide No zinc oxide [facility] topical topical topical Medica l ointment ointment ointment Apply to Apply to Apply to affected affected affected skin TID skin TID skin TID Jeri Jeri No 1 Q1D Jeri [facility] Allergy 180 Allergy 180 Allergy Medical mg tablet mg tablet 180 mg Take 1 Take 1 tablet tablet tablet Take 1 every day every day tablet by oral by oral every day route. route. by oral route. aripiprazol aripiprazol No aripiprazo [facility] e 10 mg e 10 mg le 10 mg Medic al tablet Take tablet Take tablet 1 tablet 1 tablet Take 1 every day every day tablet by oral by oral every day route at route at by oral bedtime for bedtime for route at 30 days. 30 days. bedtime for 30 days. aspirin 81 aspirin 81 No 1 Q1D aspirin 81 [facility] mg mg mg Medical tablet,kit tablet,kit tablet,del yed release yed release ayed Take 1 Take 1 release tablet tablet Take 1 every day every day tablet by oral by oral every day route. route. by oral route. atorvastati atorvastati No atorvastat [facility] n 40 mg n 40 mg in 40 mg Medic al tablet Take tablet Take tablet 1 tablet 1 tablet Take 1 every day every day tablet by oral by oral every day route at route at by oral bedtime for bedtime for route at 30 days. 30 days. bedtime for 30 days. benztropine benztropine No benztropin [facility] 1 mg tablet 1 mg tablet e 1 mg Medical Take 1 mg Take 1 mg tablet every day every day Take 1 mg by oral by oral every day route at route at by oral bedtime for bedtime for route at 30 days. 30 days. bedtime for 30 days. budesonide- budesonide- No budesonide [facility] formoterol formoterol -formotero Medical HFA 160 HFA 160 l HFA 160 mcg-4.5 mcg-4.5 mcg-4.5 mcg/actuati mcg/actuati mcg/actuat on aerosol on aerosol ion inhaler inhaler aerosol Inhale 2 Inhale 2 inhaler puffs twice puffs twice Inhale 2 a day by a day by puffs inhalation inhalation twice a route. route. day by inhalation route. Colace 100 Colace 100 No 1capsul Q1D Colace 100 [facility] mg capsule mg capsule e(s) mg capsule Medical Take 1 Take 1 Take 1 capsule capsule capsule every day every day every day by oral by oral by oral route. route. route. ergocalcife ergocalcife No ergocalcif [facility] rol rol kristen Medical (vitamin (vitamin (vitamin D2) 1,250 D2) 1,250 D2) 1,250 mcg (50,000 mcg (50,000 mcg unit) unit) (50,000 capsule capsule unit) Take 1 Take 1 capsule capsule capsule Take 1 every week every week capsule by oral by oral every week route. route. by oral route. ferrous ferrous No 1 Q1D ferrous [facility] sulfate 324 sulfate 324 sulfate Medical mg (65 mg mg (65 mg 324 mg (65 iron) iron) mg iron) tablet,kit tablet,kit tablet,del yed release yed release ayed Take 1 Take 1 release tablet tablet Take 1 every day every day tablet by oral by oral every day route. route. by oral route. folic acid folic acid No 1 Q1D folic acid [facility] 400 mcg 400 mcg 400 mcg Medica l tablet Take tablet Take tablet 1 tablet 1 tablet Take 1 every day every day tablet by oral by oral every day route. route. by oral route. furosemide furosemide No furosemide [facility] 80 mg 80 mg 80 mg Medical tablet Take tablet Take tablet 1 tablet 1 tablet Take 1 every day every day tablet by oral by oral every day route for route for by oral 30 days. 30 days. route for 30 days. gabapentin gabapentin No gabapentin [facility] 300 mg 300 mg 300 mg Medical capsule capsule capsule Take 1 Take 1 Take 1 capsule 3 capsule 3 capsule 3 times a day times a day times a by oral by oral day by route for route for oral route 30 days. 30 days. for 30 days. insulin insulin No insulin [facility] glargine glargine glargine Med ical (U-100) 100 (U-100) 100 (U-100) unit/mL unit/mL 100 subcutaneou subcutaneou unit/mL s solution s solution subcutaneo INJECT 39U INJECT 39U us UNDER THE UNDER THE solution SKIN EVERY SKIN EVERY INJECT 39U DAY DAY UNDER THE SKIN EVERY DAY ipratropium ipratropium No 2.5mL Q6H ipratropiu [facility] bromide bromide m bromide [facility] jack 0.02 % 0.02 % 0.02 % solution solution solution for for for inhalation inhalation inhalation Inhale 2.5 Inhale 2.5 Inhale 2.5 mL every 6 mL every 6 mL every 6 hours by hours by hours by inhalation inhalation inhalation route. route. route. lactulose lactulose No lactulose [facility] 10 gram/15 10 gram/15 10 gram/15 Medical mL oral mL oral mL oral solution solution solution lisinopril lisinopril No lisinopril [facility] 5 mg tablet 5 mg tablet 5 mg M edical Take 1 Take 1 tablet tablet tablet Take 1 every day every day tablet by oral by oral every day route for route for by oral 30 days. 30 days. route for 30 days. metformin metformin No metformin [facility] 500 mg 500 mg 500 mg Medical tablet Take tablet Take tablet 1 tablet 1 tablet Take 1 twice a day twice a day tablet by oral by oral twice a route for route for day by 30 days. 30 days. oral route for 30 days. Nystop Nystop No Nystop [facility] 100,000 100,000 100,000 Medica l unit/gram unit/gram unit/gram topical topical topical powder powder powder ProAir HFA Pro[facility] HFA No 2puff(s Q4H ProAir HFA [facility] 90 90 ) 90 Medical mcg/actuati mcg/actuati mcg/actuat on aerosol on aerosol ion inhaler inhaler aerosol Inhale 2 Inhale 2 inhaler puffs every puffs every Inhale 2 4 hours by 4 hours by puffs inhalation inhalation every 4 route as route as hours by needed. needed. inhalation route as needed. sertraline sertraline No sertraline [facility] 100 mg 100 mg 100 mg Medical tablet Take tablet Take tablet 1 tablet 1 tablet Take 1 every day every day tablet by oral by oral every day route for route for by oral 30 days. 30 days. route for 30 days. spironolact spironolact No spironolac [facility] one 25 mg one 25 mg tone 25 mg Medical tablet Take tablet Take tablet 1 tablet 1 tablet Take 1 every day every day tablet by oral by oral every day route. route. by oral route. Tums Extra Tums Extra No 1 BID Tums Extra [facility] Strength Strength Strength Med ical Smoothies Smoothies Smoothies 300 mg (750 300 mg (750 300 mg mg) mg) (750 mg) chewable chewable chewable tablet Take tablet Take tablet 1 tablet 1 tablet Take 1 twice a day twice a day tablet by oral by oral twice a route. route. day by oral route. zinc oxide zinc oxide No zinc oxide [facility] topical topical topical Medica l ointment ointment ointment Apply to Apply to Apply to affected affected affected skin TID skin TID skin TID Jeri Jeri No 1 Q1D Jeri [facility] Allergy 180 Allergy 180 Allergy Medical mg tablet mg tablet 180 mg Take 1 Take 1 tablet tablet tablet Take 1 every day every day tablet by oral by oral every day route. route. by oral route. aripiprazol aripiprazol No aripiprazo [facility] e 10 mg e 10 mg le 10 mg Medic al tablet Take tablet Take tablet 1 tablet 1 tablet Take 1 every day every day tablet by oral by oral every day route at route at by oral bedtime for bedtime for route at 30 days. 30 days. bedtime for 30 days. aspirin 81 aspirin 81 No 1 Q1D aspirin 81 [facility] mg mg mg Medical tablet,kit tablet,kit tablet,del yed release yed release ayed Take 1 Take 1 release tablet tablet Take 1 every day every day tablet by oral by oral every day route. route. by oral route. atorvastati atorvastati No atorvastat [facility] n 40 mg n 40 mg in 40 mg Medic al tablet Take tablet Take tablet 1 tablet 1 tablet Take 1 every day every day tablet by oral by oral every day route at route at by oral bedtime for bedtime for route at 30 days. 30 days. bedtime for 30 days. benztropine benztropine No benztropin [facility] 1 mg tablet 1 mg tablet e 1 mg Medical Take 1 mg Take 1 mg tablet every day every day Take 1 mg by oral by oral every day route at route at by oral bedtime for bedtime for route at 30 days. 30 days. bedtime for 30 days. budesonide- budesonide- No budesonide [facility] formoterol formoterol -formotero [facility] HFA 160 HFA 160 l HFA 160 mcg-4.5 mcg-4.5 mcg-4.5 mcg/actuati mcg/actuati mcg/actuat on aerosol on aerosol ion inhaler inhaler aerosol Inhale 2 Inhale 2 inhaler puffs twice puffs twice Inhale 2 a day by a day by puffs inhalation inhalation twice a route. route. day by inhalation route. Colace 100 Colace 100 No 1capsul Q1D Colace 100 [facility] mg capsule mg capsule e(s) mg capsule Medical Take 1 Take 1 Take 1 capsule capsule capsule every day every day every day by oral by oral by oral route. route. route. ergocalcife ergocalcife No ergocalcif [facility] rol rol kristen Medical (vitamin (vitamin (vitamin D2) 1,250 D2) 1,250 D2) 1,250 mcg (50,000 mcg (50,000 mcg unit) unit) (50,000 capsule capsule unit) Take 1 Take 1 capsule capsule capsule Take 1 every week every week capsule by oral by oral every week route. route. by oral route. ferrous ferrous No 1 Q1D ferrous [facility] sulfate 324 sulfate 324 sulfate Medical mg (65 mg mg (65 mg 324 mg (65 iron) iron) mg iron) tablet,kit tablet,kit tablet,del yed release yed release ayed Take 1 Take 1 release tablet tablet Take 1 every day every day tablet by oral by oral every day route. route. by oral route. folic acid folic acid No 1 Q1D folic acid [facility] 400 mcg 400 mcg 400 mcg Medica l tablet Take tablet Take tablet 1 tablet 1 tablet Take 1 every day every day tablet by oral by oral every day route. route. by oral route. furosemide furosemide No furosemide [facility] 80 mg 80 mg 80 mg Medical tablet Take tablet Take tablet 1 tablet 1 tablet Take 1 every day every day tablet by oral by oral every day route for route for by oral 30 days. 30 days. route for 30 days. gabapentin gabapentin No gabapentin [facility] 300 mg 300 mg 300 mg Medical capsule capsule capsule Take 1 Take 1 Take 1 capsule 3 capsule 3 capsule 3 times a day times a day times a by oral by oral day by route for route for oral route 30 days. 30 days. for 30 days. insulin insulin No insulin [facility] glargine glargine glargine Med ical (U-100) 100 (U-100) 100 (U-100) unit/mL unit/mL 100 subcutaneou subcutaneou unit/mL s solution s solution subcutaneo INJECT 39U INJECT 39U us UNDER THE UNDER THE solution SKIN EVERY SKIN EVERY INJECT 39U DAY DAY UNDER THE SKIN EVERY DAY ipratropium ipratropium No 2.5mL Q6H ipratropiu [facility] bromide bromide m bromide [facility]i jack 0.02 % 0.02 % 0.02 % solution solution solution for for for inhalation inhalation inhalation Inhale 2.5 Inhale 2.5 Inhale 2.5 mL every 6 mL every 6 mL every 6 hours by hours by hours by inhalation inhalation inhalation route. route. route. lactulose lactulose No lactulose [facility] 10 gram/15 10 gram/15 10 gram/15 Medical mL oral mL oral mL oral solution solution solution lisinopril lisinopril No lisinopril [facility] 5 mg tablet 5 mg tablet 5 mg M edical Take 1 Take 1 tablet tablet tablet Take 1 every day every day tablet by oral by oral every day route for route for by oral 30 days. 30 days. route for 30 days. metformin metformin No metformin [facility] 500 mg 500 mg 500 mg Medical tablet Take tablet Take tablet 1 tablet 1 tablet Take 1 twice a day twice a day tablet by oral by oral twice a route for route for day by 30 days. 30 days. oral route for 30 days. Nystop Nystop No Nystop [facility] 100,000 100,000 100,000 Medica l unit/gram unit/gram unit/gram topical topical topical powder powder powder ProAir HFA Pro[facility] HFA No 2puff(s Q4H ProAir HFA [facility] 90 90 ) 90 Medical mcg/actuati mcg/actuati mcg/actuat on aerosol on aerosol ion inhaler inhaler aerosol Inhale 2 Inhale 2 inhaler puffs every puffs every Inhale 2 4 hours by 4 hours by puffs inhalation inhalation every 4 route as route as hours by needed. needed. inhalation route as needed. sertraline sertraline No sertraline [facility] 100 mg 100 mg 100 mg Medical tablet Take tablet Take tablet 1 tablet 1 tablet Take 1 every day every day tablet by oral by oral every day route for route for by oral 30 days. 30 days. route for 30 days. spironolact spironolact No spironolac [facility] one 25 mg one 25 mg tone 25 mg Medical tablet Take tablet Take tablet 1 tablet 1 tablet Take 1 every day every day tablet by oral by oral every day route. route. by oral route. Tums Extra Tums Extra No 1 BID Tums Extra [facility] Strength Strength Strength Med ical Smoothies Smoothies Smoothies 300 mg (750 300 mg (750 300 mg mg) mg) (750 mg) chewable chewable chewable tablet Take tablet Take tablet 1 tablet 1 tablet Take 1 twice a day twice a day tablet by oral by oral twice a route. route. day by oral route. zinc oxide zinc oxide No zinc oxide [facility] topical topical topical Medica l ointment ointment ointment Apply to Apply to Apply to affected affected affected skin TID skin TID skin TID Jeri Jeri No 1 Q1D Jeri [facility] Allergy 180 Allergy 180 Allergy Medical mg tablet mg tablet 180 mg Take 1 Take 1 tablet tablet tablet Take 1 every day every day tablet by oral by oral every day route. route. by oral route. aripiprazol aripiprazol No aripiprazo [facility] e 10 mg e 10 mg le 10 mg Medic al tablet Take tablet Take tablet 1 tablet 1 tablet Take 1 every day every day tablet by oral by oral every day route at route at by oral bedtime for bedtime for route at 30 days. 30 days. bedtime for 30 days. aspirin 81 aspirin 81 No 1 Q1D aspirin 81 [facility] mg mg mg Medical tablet,kit tablet,kit tablet,del yed release yed release ayed Take 1 Take 1 release tablet tablet Take 1 every day every day tablet by oral by oral every day route. route. by oral route. atorvastati atorvastati No atorvastat [facility] n 40 mg n 40 mg in 40 mg Medic al tablet Take tablet Take tablet 1 tablet 1 tablet Take 1 every day every day tablet by oral by oral every day route at route at by oral bedtime for bedtime for route at 30 days. 30 days. bedtime for 30 days. benztropine benztropine No benztropin [facility] 1 mg tablet 1 mg tablet e 1 mg Medical Take 1 mg Take 1 mg tablet every day every day Take 1 mg by oral by oral every day route at route at by oral bedtime for bedtime for route at 30 days. 30 days. bedtime for 30 days. budesonide- budesonide- No budesonide [facility] formoterol formoterol -formotero Medical HFA 160 HFA 160 l HFA 160 mcg-4.5 mcg-4.5 mcg-4.5 mcg/actuati mcg/actuati mcg/actuat on aerosol on aerosol ion inhaler inhaler aerosol Inhale 2 Inhale 2 inhaler puffs twice puffs twice Inhale 2 a day by a day by puffs inhalation inhalation twice a route. route. day by inhalation route. Colace 100 Colace 100 No 1capsul Q1D Colace 100 [facility] mg capsule mg capsule e(s) mg capsule Medical Take 1 Take 1 Take 1 capsule capsule capsule every day every day every day by oral by oral by oral route. route. route. doxycycline doxycycline No doxycyclin [facility] hyclate 100 hyclate 100 e hyclate Medical mg tablet mg tablet 100 mg tablet ergocalcife ergocalcife No ergocalcif [facility] rol rol kristen Medical (vitamin (vitamin (vitamin D2) 1,250 D2) 1,250 D2) 1,250 mcg (50,000 mcg (50,000 mcg unit) unit) (50,000 capsule capsule unit) Take 1 Take 1 capsule capsule capsule Take 1 every week every week capsule by oral by oral every week route. route. by oral route. ferrous ferrous No 1 Q1D ferrous [facility] sulfate 324 sulfate 324 sulfate Medical mg (65 mg mg (65 mg 324 mg (65 iron) iron) mg iron) tablet,kit tablet,kit tablet,del yed release yed release ayed Take 1 Take 1 release tablet tablet Take 1 every day every day tablet by oral by oral every day route. route. by oral route. folic acid folic acid No 1 Q1D folic acid [facility] 400 mcg 400 mcg 400 mcg Medica l tablet Take tablet Take tablet 1 tablet 1 tablet Take 1 every day every day tablet by oral by oral every day route. route. by oral route. furosemide furosemide No furosemide [facility] 80 mg 80 mg 80 mg Medical tablet Take tablet Take tablet 1 tablet 1 tablet Take 1 every day every day tablet by oral by oral every day route for route for by oral 30 days. 30 days. route for 30 days. gabapentin gabapentin No gabapentin [facility] 300 mg 300 mg 300 mg Medical capsule capsule capsule Take 1 Take 1 Take 1 capsule 3 capsule 3 capsule 3 times a day times a day times a by oral by oral day by route for route for oral route 30 days. 30 days. for 30 days. insulin insulin No insulin [facility] glargine glargine glargine Med ical (U-100) 100 (U-100) 100 (U-100) unit/mL unit/mL 100 subcutaneou subcutaneou unit/mL s solution s solution subcutaneo INJECT 39U INJECT 39U us UNDER THE UNDER THE solution SKIN EVERY SKIN EVERY INJECT 39U DAY DAY UNDER THE SKIN EVERY DAY insulin insulin No insulin [facility] glargine-yf glargine-yf glargine-y Medical gn (U-100) gn (U-100) fgn 100 unit/mL 100 unit/mL (U-100) subcutaneou subcutaneou 100 s solution s solution unit/mL subcutaneo us solution ipratropium ipratropium No 2.5mL Q6H ipratropiu [facility] bromide bromide m bromide Medi jack 0.02 % 0.02 % 0.02 % solution solution solution for for for inhalation inhalation inhalation Inhale 2.5 Inhale 2.5 Inhale 2.5 mL every 6 mL every 6 mL every 6 hours by hours by hours by inhalation inhalation inhalation route. route. route. lactulose lactulose No lactulose [facility] 10 gram/15 10 gram/15 10 gram/15 Medical mL oral mL oral mL oral solution solution solution lisinopril lisinopril No lisinopril [facility] 5 mg tablet 5 mg tablet 5 mg M edical Take 1 Take 1 tablet tablet tablet Take 1 every day every day tablet by oral by oral every day route for route for by oral 30 days. 30 days. route for 30 days. metformin metformin No metformin [facility] 500 mg 500 mg 500 mg Medical tablet Take tablet Take tablet 1 tablet 1 tablet Take 1 twice a day twice a day tablet by oral by oral twice a route for route for day by 30 days. 30 days. oral route for 30 days. Nystop Nystop No Nystop [facility] 100,000 100,000 100,000 Medica l unit/gram unit/gram unit/gram topical topical topical powder powder powder ProAir HFA ProAir HFA No 2puff(s Q4H ProAir HFA [facility] 90 90 ) 90 Medical mcg/actuati mcg/actuati mcg/actuat on aerosol on aerosol ion inhaler inhaler aerosol Inhale 2 Inhale 2 inhaler puffs every puffs every Inhale 2 4 hours by 4 hours by puffs inhalation inhalation every 4 route as route as hours by needed. needed. inhalation route as needed. sertraline sertraline No sertraline [facility] 100 mg 100 mg 100 mg Medical tablet Take tablet Take tablet 1 tablet 1 tablet Take 1 every day every day tablet by oral by oral every day route for route for by oral 30 days. 30 days. route for 30 days. spironolact spironolact No spironolac [facility] one 25 mg one 25 mg tone 25 mg Medical tablet Take tablet Take tablet 1 tablet 1 tablet Take 1 every day every day tablet by oral by oral every day route. route. by oral route. Tums Extra Tums Extra No 1 BID Tums Extra [facility] Strength Strength Strength Med ical Smoothies Smoothies Smoothies 300 mg (750 300 mg (750 300 mg mg) mg) (750 mg) chewable chewable chewable tablet Take tablet Take tablet 1 tablet 1 tablet Take 1 twice a day twice a day tablet by oral by oral twice a route. route. day by oral route. zinc oxide zinc oxide No zinc oxide [facility] topical topical topical Medica l ointment ointment ointment Apply to Apply to Apply to affected affected affected skin TID skin TID skin TID Jeri Jeri No 1 Q1D Jeri [facility] Allergy 180 Allergy 180 Allergy Medical mg tablet mg tablet 180 mg Take 1 Take 1 tablet tablet tablet Take 1 every day every day tablet by oral by oral every day route. route. by oral route. aripiprazol aripiprazol No aripiprazo [facility] e 10 mg e 10 mg le 10 mg Medic al tablet Take tablet Take tablet 1 tablet 1 tablet Take 1 every day every day tablet by oral by oral every day route at route at by oral bedtime for bedtime for route at 30 days. 30 days. bedtime for 30 days. aspirin 81 aspirin 81 No 1 Q1D aspirin 81 [facility] mg mg mg Medical tablet,kit tablet,kit tablet,del yed release yed release ayed Take 1 Take 1 release tablet tablet Take 1 every day every day tablet by oral by oral every day route. route. by oral route. atorvastati atorvastati No atorvastat [facility] n 40 mg n 40 mg in 40 mg Medic al tablet Take tablet Take tablet 1 tablet 1 tablet Take 1 every day every day tablet by oral by oral every day route at route at by oral bedtime for bedtime for route at 30 days. 30 days. bedtime for 30 days. benztropine benztropine No benztropin [facility] 1 mg tablet 1 mg tablet e 1 mg Medical Take 1 mg Take 1 mg tablet every day every day Take 1 mg by oral by oral every day route at route at by oral bedtime for bedtime for route at 30 days. 30 days. bedtime for 30 days. budesonide- budesonide- No budesonide [facility] formoterol formoterol -formotero Medical HFA 160 HFA 160 l HFA 160 mcg-4.5 mcg-4.5 mcg-4.5 mcg/actuati mcg/actuati mcg/actuat on aerosol on aerosol ion inhaler inhaler aerosol Inhale 2 Inhale 2 inhaler puffs twice puffs twice Inhale 2 a day by a day by puffs inhalation inhalation twice a route. route. day by inhalation route. Colace 100 Colace 100 No 1capsul Q1D Colace 100 [facility] mg capsule mg capsule e(s) mg capsule Medical Take 1 Take 1 Take 1 capsule capsule capsule every day every day every day by oral by oral by oral route. route. route. doxycycline doxycycline No doxycyclin [facility] hyclate 100 hyclate 100 e hyclate Medical mg tablet mg tablet 100 mg tablet ergocalcife ergocalcife No ergocalcif [facility] rol rol kristen Medical (vitamin (vitamin (vitamin D2) 1,250 D2) 1,250 D2) 1,250 mcg (50,000 mcg (50,000 mcg unit) unit) (50,000 capsule capsule unit) Take 1 Take 1 capsule capsule capsule Take 1 every week every week capsule by oral by oral every week route. route. by oral route. ferrous ferrous No 1 Q1D ferrous [facility] sulfate 324 sulfate 324 sulfate Medical mg (65 mg mg (65 mg 324 mg (65 iron) iron) mg iron) tablet,kit tablet,kit tablet,del yed release yed release ayed Take 1 Take 1 release tablet tablet Take 1 every day every day tablet by oral by oral every day route. route. by oral route. folic acid folic acid No 1 Q1D folic acid [facility] 400 mcg 400 mcg 400 mcg Medica l tablet Take tablet Take tablet 1 tablet 1 tablet Take 1 every day every day tablet by oral by oral every day route. route. by oral route. furosemide furosemide No furosemide [facility] 80 mg 80 mg 80 mg Medical tablet Take tablet Take tablet 1 tablet 1 tablet Take 1 every day every day tablet by oral by oral every day route for route for by oral 30 days. 30 days. route for 30 days. gabapentin gabapentin No gabapentin [facility] 300 mg 300 mg 300 mg Medical capsule capsule capsule Take 1 Take 1 Take 1 capsule 3 capsule 3 capsule 3 times a day times a day times a by oral by oral day by route for route for oral route 30 days. 30 days. for 30 days. insulin insulin No insulin [facility] glargine glargine glargine Med ical (U-100) 100 (U-100) 100 (U-100) unit/mL unit/mL 100 subcutaneou subcutaneou unit/mL s solution s solution subcutaneo INJECT 39U INJECT 39U us UNDER THE UNDER THE solution SKIN EVERY SKIN EVERY INJECT 39U DAY DAY UNDER THE SKIN EVERY DAY insulin insulin No insulin [facility] glargine-yf glargine-yf glargine-y Medical gn (U-100) gn (U-100) fgn 100 unit/mL 100 unit/mL (U-100) subcutaneou subcutaneou 100 s solution s solution unit/mL subcutaneo us solution ipratropium ipratropium No 2.5mL Q6H ipratropiu [facility] bromide bromide m bromide Medi jack 0.02 % 0.02 % 0.02 % solution solution solution for for for inhalation inhalation inhalation Inhale 2.5 Inhale 2.5 Inhale 2.5 mL every 6 mL every 6 mL every 6 hours by hours by hours by inhalation inhalation inhalation route. route. route. lactulose lactulose No lactulose [facility] 10 gram/15 10 gram/15 10 gram/15 Medical mL oral mL oral mL oral solution solution solution lisinopril lisinopril No lisinopril [facility] 5 mg tablet 5 mg tablet 5 mg M edical Take 1 Take 1 tablet tablet tablet Take 1 every day every day tablet by oral by oral every day route for route for by oral 30 days. 30 days. route for 30 days. metformin metformin No metformin [facility] 500 mg 500 mg 500 mg Medical tablet Take tablet Take tablet 1 tablet 1 tablet Take 1 twice a day twice a day tablet by oral by oral twice a route for route for day by 30 days. 30 days. oral route for 30 days. Nystop Nystop No Nystop [facility] 100,000 100,000 100,000 Medica l unit/gram unit/gram unit/gram topical topical topical powder powder powder ProAir HFA ProAir HFA No 2puff(s Q4H ProAir HFA [facility] 90 90 ) 90 Medical mcg/actuati mcg/actuati mcg/actuat on aerosol on aerosol ion inhaler inhaler aerosol Inhale 2 Inhale 2 inhaler puffs every puffs every Inhale 2 4 hours by 4 hours by puffs inhalation inhalation every 4 route as route as hours by needed. needed. inhalation route as needed. sertraline sertraline No sertraline [facility] 100 mg 100 mg 100 mg Medical tablet Take tablet Take tablet 1 tablet 1 tablet Take 1 every day every day tablet by oral by oral every day route for route for by oral 30 days. 30 days. route for 30 days. spironolact spironolact No spironolac [facility] one 25 mg one 25 mg tone 25 mg Medical tablet Take tablet Take tablet 1 tablet 1 tablet Take 1 every day every day tablet by oral by oral every day route. route. by oral route. Tums Extra Tums Extra No 1 BID Tums Extra [facility] Strength Strength Strength Med ical Smoothies Smoothies Smoothies 300 mg (750 300 mg (750 300 mg mg) mg) (750 mg) chewable chewable chewable tablet Take tablet Take tablet 1 tablet 1 tablet Take 1 twice a day twice a day tablet by oral by oral twice a route. route. day by oral route. zinc oxide zinc oxide No zinc oxide [facility] topical topical topical Medica l ointment ointment ointment Apply to Apply to Apply to affected affected affected skin TID skin TID skin TID Jeri Jeri No 1 Q1D Jeri [facility] Allergy 180 Allergy 180 Allergy Medical mg tablet mg tablet 180 mg Take 1 Take 1 tablet tablet tablet Take 1 every day every day tablet by oral by oral every day route. route. by oral route. aripiprazol aripiprazol No aripiprazo [facility] e 10 mg e 10 mg le 10 mg Medic al tablet Take tablet Take tablet 1 tablet 1 tablet Take 1 every day every day tablet by oral by oral every day route at route at by oral bedtime for bedtime for route at 30 days. 30 days. bedtime for 30 days. aspirin 81 aspirin 81 No 1 Q1D aspirin 81 [facility] mg mg mg Medical tablet,kit tablet,kit tablet,del yed release yed release ayed Take 1 Take 1 release tablet tablet Take 1 every day every day tablet by oral by oral every day route. route. by oral route. atorvastati atorvastati No atorvastat [facility] n 40 mg n 40 mg in 40 mg Medic al tablet Take tablet Take tablet 1 tablet 1 tablet Take 1 every day every day tablet by oral by oral every day route at route at by oral bedtime for bedtime for route at 30 days. 30 days. bedtime for 30 days. benztropine benztropine No benztropin [facility] 1 mg tablet 1 mg tablet e 1 mg Medical Take 1 mg Take 1 mg tablet every day every day Take 1 mg by oral by oral every day route at route at by oral bedtime for bedtime for route at 30 days. 30 days. bedtime for 30 days. budesonide- budesonide- No budesonide [facility] formoterol formoterol -formotero Medical HFA 160 HFA 160 l HFA 160 mcg-4.5 mcg-4.5 mcg-4.5 mcg/actuati mcg/actuati mcg/actuat on aerosol on aerosol ion inhaler inhaler aerosol Inhale 2 Inhale 2 inhaler puffs twice puffs twice Inhale 2 a day by a day by puffs inhalation inhalation twice a route. route. day by inhalation route. Colace 100 Colace 100 No 1capsul Q1D Colace 100 [facility] mg capsule mg capsule e(s) mg capsule Medical Take 1 Take 1 Take 1 capsule capsule capsule every day every day every day by oral by oral by oral route. route. route. doxycycline doxycycline No doxycyclin [facility] hyclate 100 hyclate 100 e hyclate Medical mg tablet mg tablet 100 mg tablet ergocalcife ergocalcife No ergocalcif [facility] rol rol kristen [facility] (vitamin (vitamin (vitamin D2) 1,250 D2) 1,250 D2) 1,250 mcg (50,000 mcg (50,000 mcg unit) unit) (50,000 capsule capsule unit) Take 1 Take 1 capsule capsule capsule Take 1 every week every week capsule by oral by oral every week route. route. by oral route. ferrous ferrous No 1 Q1D ferrous [facility] sulfate 324 sulfate 324 sulfate Medical mg (65 mg mg (65 mg 324 mg (65 iron) iron) mg iron) tablet,kit tablet,kit tablet,del yed release yed release ayed Take 1 Take 1 release tablet tablet Take 1 every day every day tablet by oral by oral every day route. route. by oral route. folic acid folic acid No 1 Q1D folic acid [facility] 400 mcg 400 mcg 400 mcg Medica l tablet Take tablet Take tablet 1 tablet 1 tablet Take 1 every day every day tablet by oral by oral every day route. route. by oral route. furosemide furosemide No furosemide [facility] 80 mg 80 mg 80 mg Medical tablet Take tablet Take tablet 1 tablet 1 tablet Take 1 every day every day tablet by oral by oral every day route for route for by oral 30 days. 30 days. route for 30 days. gabapentin gabapentin No gabapentin [facility] 300 mg 300 mg 300 mg Medical capsule capsule capsule Take 1 Take 1 Take 1 capsule 3 capsule 3 capsule 3 times a day times a day times a by oral by oral day by route for route for oral route 30 days. 30 days. for 30 days. insulin insulin No insulin [facility] glargine glargine glargine Med ical (U-100) 100 (U-100) 100 (U-100) unit/mL unit/mL 100 subcutaneou subcutaneou unit/mL s solution s solution subcutaneo INJECT 39U INJECT 39U us UNDER THE UNDER THE solution SKIN EVERY SKIN EVERY INJECT 39U DAY DAY UNDER THE SKIN EVERY DAY insulin insulin No insulin [facility] glargine-yf glargine-yf glargine-y Medical gn (U-100) gn (U-100) fgn 100 unit/mL 100 unit/mL (U-100) subcutaneou subcutaneou 100 s solution s solution unit/mL subcutaneo us solution ipratropium ipratropium No 2.5mL Q6H ipratropiu [facility] bromide bromide m bromide Medi jack 0.02 % 0.02 % 0.02 % solution solution solution for for for inhalation inhalation inhalation Inhale 2.5 Inhale 2.5 Inhale 2.5 mL every 6 mL every 6 mL every 6 hours by hours by hours by inhalation inhalation inhalation route. route. route. lactulose lactulose No lactulose [facility] 10 gram/15 10 gram/15 10 gram/15 Medical mL oral mL oral mL oral solution solution solution lisinopril lisinopril No lisinopril [facility] 5 mg tablet 5 mg tablet 5 mg M edical Take 1 Take 1 tablet tablet tablet Take 1 every day every day tablet by oral by oral every day route for route for by oral 30 days. 30 days. route for 30 days. metformin metformin No metformin [facility] 500 mg 500 mg 500 mg Medical tablet Take tablet Take tablet 1 tablet 1 tablet Take 1 twice a day twice a day tablet by oral by oral twice a route for route for day by 30 days. 30 days. oral route for 30 days. Nystop Nystop No Nystop [facility] 100,000 100,000 100,000 Medica l unit/gram unit/gram unit/gram topical topical topical powder powder powder ProAir HFA ProAir HFA No 2puff(s Q4H ProAir HFA [facility] 90 90 ) 90 Medical mcg/actuati mcg/actuati mcg/actuat on aerosol on aerosol ion inhaler inhaler aerosol Inhale 2 Inhale 2 inhaler puffs every puffs every Inhale 2 4 hours by 4 hours by puffs inhalation inhalation every 4 route as route as hours by needed. needed. inhalation route as needed. sertraline sertraline No sertraline [facility] 100 mg 100 mg 100 mg Medical tablet Take tablet Take tablet 1 tablet 1 tablet Take 1 every day every day tablet by oral by oral every day route for route for by oral 30 days. 30 days. route for 30 days. spironolact spironolact No spironolac [facility] one 25 mg one 25 mg tone 25 mg Medical tablet Take tablet Take tablet 1 tablet 1 tablet Take 1 every day every day tablet by oral by oral every day route. route. by oral route. Tums Extra Tums Extra No 1 BID Tums Extra [facility] Strength Strength Strength Med ical Smoothies Smoothies Smoothies 300 mg (750 300 mg (750 300 mg mg) mg) (750 mg) chewable chewable chewable tablet Take tablet Take tablet 1 tablet 1 tablet Take 1 twice a day twice a day tablet by oral by oral twice a route. route. day by oral route. zinc oxide zinc oxide No zinc oxide [facility] topical topical topical Medica l ointment ointment ointment Apply to Apply to Apply to affected affected affected skin TID skin TID skin TID Jeri Jeri No 1 Q1D Jeri [facility] Allergy 180 Allergy 180 Allergy Medical mg tablet mg tablet 180 mg Take 1 Take 1 tablet tablet tablet Take 1 every day every day tablet by oral by oral every day route. route. by oral route. aripiprazol aripiprazol No aripiprazo [facility] e 10 mg e 10 mg le 10 mg Medic al tablet Take tablet Take tablet 1 tablet 1 tablet Take 1 every day every day tablet by oral by oral every day route at route at by oral bedtime for bedtime for route at 30 days. 30 days. bedtime for 30 days. aspirin 81 aspirin 81 No 1 Q1D aspirin 81 [facility] mg mg mg Medical tablet,kit tablet,kit tablet,del yed release yed release ayed Take 1 Take 1 release tablet tablet Take 1 every day every day tablet by oral by oral every day route. route. by oral route. atorvastati atorvastati No atorvastat [facility] n 40 mg n 40 mg in 40 mg Medic al tablet Take tablet Take tablet 1 tablet 1 tablet Take 1 every day every day tablet by oral by oral every day route at route at by oral bedtime for bedtime for route at 30 days. 30 days. bedtime for 30 days. benztropine benztropine No benztropin [facility] 1 mg tablet 1 mg tablet e 1 mg Medical Take 1 mg Take 1 mg tablet every day every day Take 1 mg by oral by oral every day route at route at by oral bedtime for bedtime for route at 30 days. 30 days. bedtime for 30 days. budesonide- budesonide- No budesonide [facility] formoterol formoterol -formotero Medical HFA 160 HFA 160 l HFA 160 mcg-4.5 mcg-4.5 mcg-4.5 mcg/actuati mcg/actuati mcg/actuat on aerosol on aerosol ion inhaler inhaler aerosol Inhale 2 Inhale 2 inhaler puffs twice puffs twice Inhale 2 a day by a day by puffs inhalation inhalation twice a route. route. day by inhalation route. Colace 100 Colace 100 No 1capsul Q1D Colace 100 [facility] mg capsule mg capsule e(s) mg capsule Medical Take 1 Take 1 Take 1 capsule capsule capsule every day every day every day by oral by oral by oral route. route. route. ergocalcife ergocalcife No ergocalcif [facility] rol rol kristen Medical (vitamin (vitamin (vitamin D2) 1,250 D2) 1,250 D2) 1,250 mcg (50,000 mcg (50,000 mcg unit) unit) (50,000 capsule capsule unit) Take 1 Take 1 capsule capsule capsule Take 1 every week every week capsule by oral by oral every week route. route. by oral route. ferrous ferrous No 1 Q1D ferrous [facility] sulfate 324 sulfate 324 sulfate Medical mg (65 mg mg (65 mg 324 mg (65 iron) iron) mg iron) tablet,kit tablet,kit tablet,del yed release yed release ayed Take 1 Take 1 release tablet tablet Take 1 every day every day tablet by oral by oral every day route. route. by oral route. folic acid folic acid No 1 Q1D folic acid [facility] 400 mcg 400 mcg 400 mcg Medica l tablet Take tablet Take tablet 1 tablet 1 tablet Take 1 every day every day tablet by oral by oral every day route. route. by oral route. furosemide furosemide No furosemide [facility] 80 mg 80 mg 80 mg Medical tablet Take tablet Take tablet 1 tablet 1 tablet Take 1 every day every day tablet by oral by oral every day route for route for by oral 30 days. 30 days. route for 30 days. gabapentin gabapentin No gabapentin [facility] 300 mg 300 mg 300 mg Medical capsule capsule capsule Take 1 Take 1 Take 1 capsule 3 capsule 3 capsule 3 times a day times a day times a by oral by oral day by route for route for oral route 30 days. 30 days. for 30 days. ipratropium ipratropium No 2.5mL Q6H ipratropiu [facility] bromide bromide m bromide Medi jack 0.02 % 0.02 % 0.02 % solution solution solution for for for inhalation inhalation inhalation Inhale 2.5 Inhale 2.5 Inhale 2.5 mL every 6 mL every 6 mL every 6 hours by hours by hours by inhalation inhalation inhalation route. route. route. lactulose lactulose No lactulose [facility] 10 gram/15 10 gram/15 10 gram/15 Medical mL oral mL oral mL oral solution solution solution Lantus Lantus No 39unit( Q1D Lantus [facility] U-100 U-100 s) U-100 Medical Insulin 100 Insulin 100 Insulin unit/mL unit/mL 100 subcutaneou subcutaneou unit/mL s solution s solution subcutaneo Inject 39 Inject 39 us units every units every solution day by day by Inject 39 subcutaneou subcutaneou units s route. s route. every day by subcutaneo us route. lisinopril lisinopril No lisinopril [facility] 5 mg tablet 5 mg tablet 5 mg M edical Take 1 Take 1 tablet tablet tablet Take 1 every day every day tablet by oral by oral every day route for route for by oral 30 days. 30 days. route for 30 days. metformin metformin No metformin [facility] 500 mg 500 mg 500 mg Medical tablet Take tablet Take tablet 1 tablet 1 tablet Take 1 twice a day twice a day tablet by oral by oral twice a route for route for day by 30 days. 30 days. oral route for 30 days. Nystop Nystop No Nystop [facility] 100,000 100,000 100,000 Medica l unit/gram unit/gram unit/gram topical topical topical powder powder powder ProAir HFA ProAir HFA No 2puff(s Q4H ProAir HFA [facility] 90 90 ) 90 Medical mcg/actuati mcg/actuati mcg/actuat on aerosol on aerosol ion inhaler inhaler aerosol Inhale 2 Inhale 2 inhaler puffs every puffs every Inhale 2 4 hours by 4 hours by puffs inhalation inhalation every 4 route as route as hours by needed. needed. inhalation route as needed. sertraline sertraline No sertraline [facility] 100 mg 100 mg 100 mg Medical tablet Take tablet Take tablet 1 tablet 1 tablet Take 1 every day every day tablet by oral by oral every day route for route for by oral 30 days. 30 days. route for 30 days. spironolact spironolact No spironolac [facility] one 25 mg one 25 mg tone 25 mg Medical tablet Take tablet Take tablet 1 tablet 1 tablet Take 1 every day every day tablet by oral by oral every day route. route. by oral route. Tums Extra Tums Extra No 1 BID Tums Extra [facility] Strength Strength Strength Med ical Smoothies Smoothies Smoothies 300 mg (750 300 mg (750 300 mg mg) mg) (750 mg) chewable chewable chewable tablet Take tablet Take tablet 1 tablet 1 tablet Take 1 twice a day twice a day tablet by oral by oral twice a route. route. day by oral route. zinc oxide zinc oxide No zinc oxide [facility] topical topical topical Medica l ointment ointment ointment Apply to Apply to Apply to affected affected affected skin TID skin TID skin TID Jeri Jeri No 1 Q1D Jeri [facility] Allergy 180 Allergy 180 Allergy Medical mg tablet mg tablet 180 mg Take 1 Take 1 tablet tablet tablet Take 1 every day every day tablet by oral by oral every day route. route. by oral route. aripiprazol aripiprazol No aripiprazo [facility] e 10 mg e 10 mg le 10 mg Medic al tablet Take tablet Take tablet 1 tablet 1 tablet Take 1 every day every day tablet by oral by oral every day route at route at by oral bedtime for bedtime for route at 30 days. 30 days. bedtime for 30 days. aspirin 81 aspirin 81 No 1 Q1D aspirin 81 [facility] mg mg mg Medical tablet,kit tablet,kit tablet,del yed release yed release ayed Take 1 Take 1 release tablet tablet Take 1 every day every day tablet by oral by oral every day route. route. by oral route. atorvastati atorvastati No atorvastat [facility] n 40 mg n 40 mg in 40 mg Medic al tablet Take tablet Take tablet 1 tablet 1 tablet Take 1 every day every day tablet by oral by oral every day route at route at by oral bedtime for bedtime for route at 30 days. 30 days. bedtime for 30 days. benztropine benztropine No benztropin [facility] 1 mg tablet 1 mg tablet e 1 mg Medical Take 1 mg Take 1 mg tablet every day every day Take 1 mg by oral by oral every day route at route at by oral bedtime for bedtime for route at 30 days. 30 days. bedtime for 30 days. budesonide- budesonide- No budesonide [facility] formoterol formoterol -formotero [facility] HFA 160 HFA 160 l HFA 160 mcg-4.5 mcg-4.5 mcg-4.5 mcg/actuati mcg/actuati mcg/actuat on aerosol on aerosol ion inhaler inhaler aerosol Inhale 2 Inhale 2 inhaler puffs twice puffs twice Inhale 2 a day by a day by puffs inhalation inhalation twice a route. route. day by inhalation route. Colace 100 Colace 100 No 1capsul Q1D Colace 100 [facility] mg capsule mg capsule e(s) mg capsule Medical Take 1 Take 1 Take 1 capsule capsule capsule every day every day every day by oral by oral by oral route. route. route. ergocalcife ergocalcife No ergocalcif [facility] rol rol kristen Medical (vitamin (vitamin (vitamin D2) 1,250 D2) 1,250 D2) 1,250 mcg (50,000 mcg (50,000 mcg unit) unit) (50,000 capsule capsule unit) Take 1 Take 1 capsule capsule capsule Take 1 every week every week capsule by oral by oral every week route. route. by oral route. ferrous ferrous No 1 Q1D ferrous [facility] sulfate 324 sulfate 324 sulfate [facility] mg (65 mg mg (65 mg 324 mg (65 iron) iron) mg iron) tablet,kit tablet,kit tablet,del yed release yed release ayed Take 1 Take 1 release tablet tablet Take 1 every day every day tablet by oral by oral every day route. route. by oral route. folic acid folic acid No 1 Q1D folic acid [facility] 400 mcg 400 mcg 400 mcg Medica l tablet Take tablet Take tablet 1 tablet 1 tablet Take 1 every day every day tablet by oral by oral every day route. route. by oral route. furosemide furosemide No furosemide [facility] 80 mg 80 mg 80 mg [facility] tablet Take tablet Take tablet 1 tablet 1 tablet Take 1 every day every day tablet by oral by oral every day route for route for by oral 30 days. 30 days. route for 30 days. gabapentin gabapentin No gabapentin [facility] 300 mg 300 mg 300 mg [facility] capsule capsule capsule Take 1 Take 1 Take 1 capsule 3 capsule 3 capsule 3 times a day times a day times a by oral by oral day by route for route for oral route 30 days. 30 days. for 30 days. ipratropium ipratropium No 2.5mL Q6H ipratropiu [facility] bromide bromide m bromide Medi jack 0.02 % 0.02 % 0.02 % solution solution solution for for for inhalation inhalation inhalation Inhale 2.5 Inhale 2.5 Inhale 2.5 mL every 6 mL every 6 mL every 6 hours by hours by hours by inhalation inhalation inhalation route. route. route. lactulose lactulose No lactulose [facility] 10 gram/15 10 gram/15 10 gram/15 [facility] mL oral mL oral mL oral solution solution solution Lantus Lantus No 39unit( Q1D Lantus [facility] U-100 U-100 s) U-100 [facility] Insulin 100 Insulin 100 Insulin unit/mL unit/mL 100 subcutaneou subcutaneou unit/mL s solution s solution subcutaneo Inject 39 Inject 39 us units every units every solution day by day by Inject 39 subcutaneou subcutaneou units s route. s route. every day by subcutaneo us route. lisinopril lisinopril No lisinopril [facility] 5 mg tablet 5 mg tablet 5 mg M edical Take 1 Take 1 tablet tablet tablet Take 1 every day every day tablet by oral by oral every day route for route for by oral 30 days. 30 days. route for 30 days. metformin metformin No metformin [facility] 500 mg 500 mg 500 mg [facility] tablet Take tablet Take tablet 1 tablet 1 tablet Take 1 twice a day twice a day tablet by oral by oral twice a route for route for day by 30 days. 30 days. oral route for 30 days. Nystop Nystop No Nystop [facility] 100,000 100,000 100,000 Medica l unit/gram unit/gram unit/gram topical topical topical powder powder powder Immunizations Ordered Immunization Filled Immunization Date Status Commen ts Source Name Name influenza, influenza, 2022-07-30 Completed [facility] injectable, injectable, 00:00:00 [facility] quadrivalent quadrivalent influenza, influenza, 2022-07-30 Completed [facility]able, injectable, 00:00:00 [facility] quadrivalent quadrivalent influenza, influenza, 2022-07-30 Completed [facility] injectable, injectable, 00:00:00 [facility] quadrivalent quadrivalent influenza, influenza, 2022-07-30 Completed [facility] injectable, injectable, 00:00:00 Medical quadrivalent quadrivalent influenza, influenza, 2022-07-30 Completed [facility], injectable, 00:00:00 Medical quadrivalent quadrivalent influenza, influenza, 2022-07-30 Completed [facility] injectable, injectable, 00:00:00 Medical quadrivalent quadrivalent influenza, influenza, 2022-07-30 Completed [facility] injectable, injectable, 00:00:00 Medical quadrivalent quadrivalent influenza, influenza, 2022-07-30 Completed [facility] injectable, injectable, 00:00:00 Medical quadrivalent quadrivalent influenza, influenza, 2022-07-30 Completed [facility] injectable, injectable, 00:00:00 Medical quadrivalent quadrivalent influenza, influenza, 2022-07-30 Completed [facility] injectable, injectable, 00:00:00 Medical quadrivalent quadrivalent influenza, influenza, 2022-07-30 Completed [facility] injectable, injectable, 00:00:00 Medical quadrivalent quadrivalent influenza, influenza, 2022-07-30 Completed [facility] injectable, injectable, 00:00:00 Medical quadrivalent quadrivalent COVID-19 (SARS-COV-2) COVID-19 (SARS-COV-2) 2021-10-05 Completed [facility] vaccine, unspecified vaccine, unspecified 00:00:00 Medical COVID-19 (SARS-COV-2) COVID-19 (SARS-COV-2) 2021-10-05 Completed [facility] vaccine, unspecified vaccine, unspecified 00:00:00 Medical COVID-19 (SARS-COV-2) COVID-19 (SARS-COV-2) 2021-10-05 Completed [facility] vaccine, unspecified vaccine, unspecified 00:00:00 Medical COVID-19 (SARS-COV-2) COVID-19 (SARS-COV-2) 2021-10-05 Completed [facility] vaccine, unspecified vaccine, unspecified 00:00:00 Medical COVID-19 (SARS-COV-2) COVID-19 (SARS-COV-2) 2021-10-05 Completed [facility], unspecified vaccine, unspecified 00:00:00 Medical COVID-19 (SARS-COV-2) COVID-19 (SARS-COV-2) 2021-10-05 Completed [facility] vaccine, unspecified vaccine, unspecified 00:00:00 Medical COVID-19 (SARS-COV-2) COVID-19 (SARS-COV-2) 2021-10-05 Completed [facility] vaccine, unspecified vaccine, unspecified 00:00:00 Medical COVID-19 (SARS-COV-2) COVID-19 (SARS-COV-2) 2021-10-05 Completed [facility] vaccine, unspecified vaccine, unspecified 00:00:00 Medical COVID-19 (SARS-COV-2) COVID-19 (SARS-COV-2) 2021-10-05 Completed [facility] vaccine, unspecified vaccine, unspecified 00:00:00 Medical COVID-19 (SARS-COV-2) COVID-19 (SARS-COV-2) 2021-10-05 Completed [facility] vaccine, unspecified vaccine, unspecified 00:00:00 Medical COVID-19 (SARS-COV-2) COVID-19 (SARS-COV-2) 2021-10-05 Completed [facility] vaccine, unspecified vaccine, unspecified 00:00:00 Medical COVID-19 (SARS-COV-2) COVID-19 (SARS-COV-2) 2021-10-05 Completed [facility] vaccine, unspecified vaccine, unspecified 00:00:00 Medical COVID-19 (SARS-COV-2) COVID-19 (SARS-COV-2) 2021-10-05 Completed [facility] vaccine, unspecified vaccine, unspecified 00:00:00 Medical COVID-19 (SARS-COV-2) COVID-19 (SARS-COV-2) 2021-10-05 Completed [facility] vaccine, unspecified vaccine, unspecified 00:00:00 Medical COVID-19 (SARS-COV-2) COVID-19 (SARS-COV-2) 2021-10-05 Completed [facility] vaccine, unspecified vaccine, unspecified 00:00:00 Medical COVID-19 (SARS-COV-2) COVID-19 (SARS-COV-2) 2021-10-05 Completed [facility] vaccine, unspecified vaccine, unspecified 00:00:00 Medical COVID-19 (SARS-COV-2) COVID-19 (SARS-COV-2) 2021-10-05 Completed [facility] vaccine, unspecified vaccine, unspecified 00:00:00 Medical COVID-19 (SARS-COV-2) COVID-19 (SARS-COV-2) 2021-10-05 Completed [facility] vaccine, unspecified vaccine, unspecified 00:00:00 Medical COVID-19 (SARS-COV-2) COVID-19 (SARS-COV-2) 2021-10-05 Completed [facility] vaccine, unspecified vaccine, unspecified 00:00:00 Medical COVID-19 (SARS-COV-2) COVID-19 (SARS-COV-2) 2021-10-05 Completed [facility] vaccine, unspecified vaccine, unspecified 00:00:00 Medical COVID-19 (SARS-COV-2) COVID-19 (SARS-COV-2) 2021-10-05 Completed [facility] vaccine, unspecified vaccine, unspecified 00:00:00 Medical COVID-19 (SARS-COV-2) COVID-19 (SARS-COV-2) 2021-10-05 Completed [facility], unspecified vaccine, unspecified 00:00:00 Medical COVID-19 (SARS-COV-2) COVID-19 (SARS-COV-2) 2021-10-05 Completed [facility] vaccine, unspecified vaccine, unspecified 00:00:00 Medical COVID-19 (SARS-COV-2) COVID-19 (SARS-COV-2) 2021-10-05 Completed [facility], unspecified vaccine, unspecified 00:00:00 Medical COVID-19 (SARS-COV-2) COVID-19 (SARS-COV-2) 2021-10-05 Completed [facility], unspecified vaccine, unspecified 00:00:00 Medical COVID-19 (SARS-COV-2) COVID-19 (SARS-COV-2) 2021-10-05 Completed [facility] vaccine, unspecified vaccine, unspecified 00:00:00 Medical COVID-19 (SARS-COV-2) COVID-19 (SARS-COV-2) 2021-10-05 Completed [facility], unspecified vaccine, unspecified 00:00:00 Medical COVID-19 (SARS-COV-2) COVID-19 (SARS-COV-2) 2021-10-05 Completed [facility], unspecified vaccine, unspecified 00:00:00 Medical COVID-19 (SARS-COV-2) COVID-19 (SARS-COV-2) 2021-10-05 Completed [facility], unspecified vaccine, unspecified 00:00:00 Medical COVID-19 (SARS-COV-2) COVID-19 (SARS-COV-2) 2021-10-05 Completed [facility], unspecified vaccine, unspecified 00:00:00 Medical COVID-19 (SARS-COV-2) COVID-19 (SARS-COV-2) 2021-10-05 Completed [facility], unspecified vaccine, unspecified 00:00:00 Medical COVID-19 (SARS-COV-2) COVID-19 (SARS-COV-2) 2021-10-05 Completed [facility], unspecified vaccine, unspecified 00:00:00 Medical COVID-19 (SARS-COV-2) COVID-19 (SARS-COV-2) 2021-10-05 Completed [facility] vaccine, unspecified vaccine, unspecified 00:00:00 Medical COVID-19 (SARS-COV-2) COVID-19 (SARS-COV-2) 2021-10-05 Completed [facility], unspecified vaccine, unspecified 00:00:00 Medical COVID-19 (SARS-COV-2) COVID-19 (SARS-COV-2) 2021-10-05 Completed [facility], unspecified vaccine, unspecified 00:00:00 Medical COVID-19 (SARS-COV-2) COVID-19 (SARS-COV-2) 2021-10-05 Completed [facility], unspecified vaccine, unspecified 00:00:00 Medical COVID-19 (SARS-COV-2) COVID-19 (SARS-COV-2) 2021-10-05 Completed [facility], unspecified vaccine, unspecified 00:00:00 Medical COVID-19 (SARS-COV-2) COVID-19 (SARS-COV-2) 2021-10-05 Completed [facility] vaccine, unspecified vaccine, unspecified 00:00:00 Medical COVID-19 (SARS-COV-2) COVID-19 (SARS-COV-2) 2021-10-05 Completed [facility], unspecified vaccine, unspecified 00:00:00 Medical COVID-19 (SARS-COV-2) COVID-19 (SARS-COV-2) 2021-10-05 Completed [facility], unspecified vaccine, unspecified 00:00:00 Medical pneumococcal pneumococcal 2021-09-21 Completed [facility] polysaccharide PPV23 polysaccharide PPV23 00:00:00 Medical pneumococcal pneumococcal 2021-09-21 Completed [facility] polysaccharide PPV23 polysaccharide PPV23 00:00:00 Medical pneumococcal pneumococcal 2021-09-21 Completed [facility] polysaccharide PPV23 polysaccharide PPV23 00:00:00 Medical pneumococcal pneumococcal 2021-09-21 Completed [facility] polysaccharide PPV23 polysaccharide PPV23 00:00:00 Medical pneumococcal pneumococcal 2021-09-21 Completed [facility] polysaccharide PPV23 polysaccharide PPV23 00:00:00 Medical pneumococcal pneumococcal 2021-09-21 Completed [facility] polysaccharide PPV23 polysaccharide PPV23 00:00:00 Medical pneumococcal pneumococcal 2021-09-21 Completed [facility] polysaccharide PPV23 polysaccharide PPV23 00:00:00 Medical pneumococcal pneumococcal 2021-09-21 Completed [facility] polysaccharide PPV23 polysaccharide PPV23 00:00:00 Medical pneumococcal pneumococcal 2021-09-21 Completed [facility] polysaccharide PPV23 polysaccharide PPV23 00:00:00 Medical pneumococcal pneumococcal 2021-09-21 Completed [facility] polysaccharide PPV23 polysaccharide PPV23 00:00:00 Medical pneumococcal pneumococcal 2021-09-21 Completed [facility] polysaccharide PPV23 polysaccharide PPV23 00:00:00 Medical pneumococcal pneumococcal 2021-09-21 Completed [facility] polysaccharide PPV23 polysaccharide PPV23 00:00:00 Medical pneumococcal pneumococcal 2021-09-21 Completed [facility] polysaccharide PPV23 polysaccharide PPV23 00:00:00 Medical pneumococcal pneumococcal 2021-09-21 Completed [facility] polysaccharide PPV23 polysaccharide PPV23 00:00:00 Medical pneumococcal pneumococcal 2021-09-21 Completed [facility] polysaccharide PPV23 polysaccharide PPV23 00:00:00 Medical pneumococcal pneumococcal 2021-09-21 Completed [facility] polysaccharide PPV23 polysaccharide PPV23 00:00:00 Medical pneumococcal pneumococcal 2021-09-21 Completed [facility] polysaccharide PPV23 polysaccharide PPV23 00:00:00 Medical pneumococcal pneumococcal 2021-09-21 Completed [facility] polysaccharide PPV23 polysaccharide PPV23 00:00:00 Medical pneumococcal pneumococcal 2021-09-21 Completed [facility] polysaccharide PPV23 polysaccharide PPV23 00:00:00 Medical pneumococcal pneumococcal 2021-09-21 Completed [facility] polysaccharide PPV23 polysaccharide PPV23 00:00:00 Medical pneumococcal pneumococcal 2021-09-21 Completed [facility] polysaccharide PPV23 polysaccharide PPV23 00:00:00 Medical pneumococcal pneumococcal 2021-09-21 Completed [facility] polysaccharide PPV23 polysaccharide PPV23 00:00:00 Medical pneumococcal pneumococcal 2021-09-21 Completed [facility] polysaccharide PPV23 polysaccharide PPV23 00:00:00 Medical pneumococcal pneumococcal 2021-09-21 Completed [facility] polysaccharide PPV23 polysaccharide PPV23 00:00:00 Medical pneumococcal pneumococcal 2021-09-21 Completed [facility] polysaccharide PPV23 polysaccharide PPV23 00:00:00 Medical pneumococcal pneumococcal 2021-09-21 Completed [facility] polysaccharide PPV23 polysaccharide PPV23 00:00:00 Medical influenza, influenza, 2021-08-10 Completed [facility] injectable, injectable, 00:00:00 Medical quadrivalent quadrivalent influenza, influenza, 2021-08-10 Completed [facility] injectable, injectable, 00:00:00 Medical quadrivalent quadrivalent influenza, influenza, 2021-08-10 Completed [facility] injectable, injectable, 00:00:00 Medical quadrivalent quadrivalent influenza, influenza, 2021-08-10 Completed [facility] injectable, injectable, 00:00:00 Medical quadrivalent quadrivalent influenza, influenza, 2021-08-10 Completed [facility] injectable, injectable, 00:00:00 Medical quadrivalent quadrivalent influenza, influenza, 2021-08-10 Completed [facility] injectable, injectable, 00:00:00 Medical quadrivalent quadrivalent influenza, influenza, 2021-08-10 Completed [facility] injectable, injectable, 00:00:00 Medical quadrivalent quadrivalent influenza, influenza, 2021-08-10 Completed [facility] injectable, injectable, 00:00:00 Medical quadrivalent quadrivalent influenza, influenza, 2021-08-10 Completed [facility] injectable, injectable, 00:00:00 Medical quadrivalent quadrivalent influenza, influenza, 2021-08-10 Completed [facility] injectable, injectable, 00:00:00 Medical quadrivalent quadrivalent influenza, influenza, 2021-08-10 Completed [facility] injectable, injectable, 00:00:00 Medical quadrivalent quadrivalent influenza, influenza, 2021-08-10 Completed [facility] injectable, injectable, 00:00:00 Medical quadrivalent quadrivalent influenza, influenza, 2021-08-10 Completed [facility] injectable, injectable, 00:00:00 Medical quadrivalent quadrivalent influenza, influenza, 2021-08-10 Completed [facility] injectable, injectable, 00:00:00 Medical quadrivalent quadrivalent influenza, influenza, 2021-08-10 Completed [facility] injectable, injectable, 00:00:00 Medical quadrivalent quadrivalent influenza, influenza, 2021-08-10 Completed [facility] injectable, injectable, 00:00:00 Medical quadrivalent quadrivalent influenza, influenza, 2021-08-10 Completed [facility] injectable, injectable, 00:00:00 Medical quadrivalent quadrivalent influenza, influenza, 2021-08-10 Completed [facility] injectable, injectable, 00:00:00 Medical quadrivalent quadrivalent influenza, influenza, 2021-08-10 Completed [facility] injectable, injectable, 00:00:00 Medical quadrivalent quadrivalent influenza, influenza, 2021-08-10 Completed [facility] injectable, injectable, 00:00:00 Medical quadrivalent quadrivalent influenza, influenza, 2021-08-10 Completed [facility] injectable, injectable, 00:00:00 Medical quadrivalent quadrivalent influenza, influenza, 2021-08-10 Completed [facility] injectable, injectable, 00:00:00 Medical quadrivalent quadrivalent influenza, influenza, 2021-08-10 Completed [facility] injectable, injectable, 00:00:00 Medical quadrivalent quadrivalent influenza, influenza, 2021-08-10 Completed [facility] injectable, injectable, 00:00:00 Medical quadrivalent quadrivalent influenza, influenza, 2021-08-10 Completed [facility] injectable, injectable, 00:00:00 Medical quadrivalent quadrivalent influenza, influenza, 2021-08-10 Completed [facility] injectable, injectable, 00:00:00 Medical quadrivalent quadrivalent COVID-19 (SARS-COV-2) COVID-19 (SARS-COV-2) 2020-12-10 Completed [facility] vaccine, unspecified vaccine, unspecified 00:00:00 Medical COVID-19 (SARS-COV-2) COVID-19 (SARS-COV-2) 2020-12-10 Completed [facility] vaccine, unspecified vaccine, unspecified 00:00:00 Medical COVID-19 (SARS-COV-2) COVID-19 (SARS-COV-2) 2020-12-10 Completed [facility] vaccine, unspecified vaccine, unspecified 00:00:00 Medical COVID-19 (SARS-COV-2) COVID-19 (SARS-COV-2) 2020-12-10 Completed [facility] vaccine, unspecified vaccine, unspecified 00:00:00 Medical COVID-19 (SARS-COV-2) COVID-19 (SARS-COV-2) 2020-12-10 Completed [facility] vaccine, unspecified vaccine, unspecified 00:00:00 Medical COVID-19 (SARS-COV-2) COVID-19 (SARS-COV-2) 2020-12-10 Completed [facility] vaccine, unspecified vaccine, unspecified 00:00:00 Medical COVID-19 (SARS-COV-2) COVID-19 (SARS-COV-2) 2020-12-10 Completed [facility] vaccine, unspecified vaccine, unspecified 00:00:00 Medical COVID-19 (SARS-COV-2) COVID-19 (SARS-COV-2) 2020-12-10 Completed [facility] vaccine, unspecified vaccine, unspecified 00:00:00 Medical COVID-19 (SARS-COV-2) COVID-19 (SARS-COV-2) 2020-12-10 Completed [facility] vaccine, unspecified vaccine, unspecified 00:00:00 Medical COVID-19 (SARS-COV-2) COVID-19 (SARS-COV-2) 2020-12-10 Completed [facility] vaccine, unspecified vaccine, unspecified 00:00:00 Medical COVID-19 (SARS-COV-2) COVID-19 (SARS-COV-2) 2020-12-10 Completed [facility] vaccine, unspecified vaccine, unspecified 00:00:00 Medical COVID-19 (SARS-COV-2) COVID-19 (SARS-COV-2) 2020-12-10 Completed [facility] vaccine, unspecified vaccine, unspecified 00:00:00 Medical COVID-19 (SARS-COV-2) COVID-19 (SARS-COV-2) 2020-12-10 Completed [facility] vaccine, unspecified vaccine, unspecified 00:00:00 Medical COVID-19 (SARS-COV-2) COVID-19 (SARS-COV-2) 2020-12-10 Completed [facility] vaccine, unspecified vaccine, unspecified 00:00:00 Medical COVID-19 (SARS-COV-2) COVID-19 (SARS-COV-2) 2020-12-10 Completed [facility] vaccine, unspecified vaccine, unspecified 00:00:00 Medical COVID-19 (SARS-COV-2) COVID-19 (SARS-COV-2) 2020-12-10 Completed [facility] vaccine, unspecified vaccine, unspecified 00:00:00 Medical COVID-19 (SARS-COV-2) COVID-19 (SARS-COV-2) 2020-12-10 Completed [facility] vaccine, unspecified vaccine, unspecified 00:00:00 Medical COVID-19 (SARS-COV-2) COVID-19 (SARS-COV-2) 2020-12-10 Completed [facility] vaccine, unspecified vaccine, unspecified 00:00:00 Medical COVID-19 (SARS-COV-2) COVID-19 (SARS-COV-2) 2020-12-10 Completed [facility] vaccine, unspecified vaccine, unspecified 00:00:00 Medical COVID-19 (SARS-COV-2) COVID-19 (SARS-COV-2) 2020-12-10 Completed [facility] vaccine, unspecified vaccine, unspecified 00:00:00 Medical COVID-19 (SARS-COV-2) COVID-19 (SARS-COV-2) 2020-12-10 Completed [facility] vaccine, unspecified vaccine, unspecified 00:00:00 Medical COVID-19 (SARS-COV-2) COVID-19 (SARS-COV-2) 2020-12-10 Completed [facility] vaccine, unspecified vaccine, unspecified 00:00:00 Medical COVID-19 (SARS-COV-2) COVID-19 (SARS-COV-2) 2020-12-10 Completed [facility] vaccine, unspecified vaccine, unspecified 00:00:00 Medical COVID-19 (SARS-COV-2) COVID-19 (SARS-COV-2) 2020-12-10 Completed [facility] vaccine, unspecified vaccine, unspecified 00:00:00 Medical COVID-19 (SARS-COV-2) COVID-19 (SARS-COV-2) 2020-12-10 Completed [facility] vaccine, unspecified vaccine, unspecified 00:00:00 Medical COVID-19 (SARS-COV-2) COVID-19 (SARS-COV-2) 2020-12-10 Completed [facility] vaccine, unspecified vaccine, unspecified 00:00:00 Medical COVID-19 (SARS-COV-2) COVID-19 (SARS-COV-2) 2020-11-18 Completed [facility] vaccine, unspecified vaccine, unspecified 00:00:00 Medical COVID-19 (SARS-COV-2) COVID-19 (SARS-COV-2) 2020-11-18 Completed [facility] vaccine, unspecified vaccine, unspecified 00:00:00 Medical COVID-19 (SARS-COV-2) COVID-19 (SARS-COV-2) 2020-11-18 Completed [facility] vaccine, unspecified vaccine, unspecified 00:00:00 Medical COVID-19 (SARS-COV-2) COVID-19 (SARS-COV-2) 2020-11-18 Completed [facility] vaccine, unspecified vaccine, unspecified 00:00:00 Medical COVID-19 (SARS-COV-2) COVID-19 (SARS-COV-2) 2020-11-18 Completed [facility] vaccine, unspecified vaccine, unspecified 00:00:00 Medical COVID-19 (SARS-COV-2) COVID-19 (SARS-COV-2) 2020-11-18 Completed [facility] vaccine, unspecified vaccine, unspecified 00:00:00 Medical COVID-19 (SARS-COV-2) COVID-19 (SARS-COV-2) 2020-11-18 Completed [facility] vaccine, unspecified vaccine, unspecified 00:00:00 Medical COVID-19 (SARS-COV-2) COVID-19 (SARS-COV-2) 2020-11-18 Completed [facility] vaccine, unspecified vaccine, unspecified 00:00:00 Medical COVID-19 (SARS-COV-2) COVID-19 (SARS-COV-2) 2020-11-18 Completed [facility] vaccine, unspecified vaccine, unspecified 00:00:00 Medical COVID-19 (SARS-COV-2) COVID-19 (SARS-COV-2) 2020-11-18 Completed [facility] vaccine, unspecified vaccine, unspecified 00:00:00 Medical COVID-19 (SARS-COV-2) COVID-19 (SARS-COV-2) 2020-11-18 Completed [facility] vaccine, unspecified vaccine, unspecified 00:00:00 Medical COVID-19 (SARS-COV-2) COVID-19 (SARS-COV-2) 2020-11-18 Completed [facility] vaccine, unspecified vaccine, unspecified 00:00:00 Medical COVID-19 (SARS-COV-2) COVID-19 (SARS-COV-2) 2020-11-18 Completed [facility] vaccine, unspecified vaccine, unspecified 00:00:00 Medical COVID-19 (SARS-COV-2) COVID-19 (SARS-COV-2) 2020-11-18 Completed [facility] vaccine, unspecified vaccine, unspecified 00:00:00 Medical COVID-19 (SARS-COV-2) COVID-19 (SARS-COV-2) 2020-11-18 Completed [facility] vaccine, unspecified vaccine, unspecified 00:00:00 Medical COVID-19 (SARS-COV-2) COVID-19 (SARS-COV-2) 2020-11-18 Completed [facility] vaccine, unspecified vaccine, unspecified 00:00:00 Medical COVID-19 (SARS-COV-2) COVID-19 (SARS-COV-2) 2020-11-18 Completed [facility] vaccine, unspecified vaccine, unspecified 00:00:00 Medical COVID-19 (SARS-COV-2) COVID-19 (SARS-COV-2) 2020-11-18 Completed [facility] vaccine, unspecified vaccine, unspecified 00:00:00 Medical COVID-19 (SARS-COV-2) COVID-19 (SARS-COV-2) 2020-11-18 Completed [facility] vaccine, unspecified vaccine, unspecified 00:00:00 Medical COVID-19 (SARS-COV-2) COVID-19 (SARS-COV-2) 2020-11-18 Completed [facility] vaccine, unspecified vaccine, unspecified 00:00:00 Medical COVID-19 (SARS-COV-2) COVID-19 (SARS-COV-2) 2020-11-18 Completed [facility] vaccine, unspecified vaccine, unspecified 00:00:00 Medical COVID-19 (SARS-COV-2) COVID-19 (SARS-COV-2) 2020-11-18 Completed [facility] vaccine, unspecified vaccine, unspecified 00:00:00 Medical COVID-19 (SARS-COV-2) COVID-19 (SARS-COV-2) 2020-11-18 Completed [facility] vaccine, unspecified vaccine, unspecified 00:00:00 Medical COVID-19 (SARS-COV-2) COVID-19 (SARS-COV-2) 2020-11-18 Completed [facility] vaccine, unspecified vaccine, unspecified 00:00:00 Medical COVID-19 (SARS-COV-2) COVID-19 (SARS-COV-2) 2020-11-18 Completed [facility] vaccine, unspecified vaccine, unspecified 00:00:00 Medical COVID-19 (SARS-COV-2) COVID-19 (SARS-COV-2) 2020-11-18 Completed [facility] vaccine, unspecified vaccine, unspecified 00:00:00 Medical Vital Signs Vital Name Observation Time Observation Value Comments Source BP Diastolic 2023-02-21 00:00:00 63 mm[Hg] [facility] Height 2023-02-21 00:00:00 66 [in_i] [facility] BMI (Body Mass Index) 2023-02-21 00:00:00 76.5 kg/m2 [facility] BP Systolic 2023-02-21 00:00:00 118 mm[Hg] [facility] Body Weight 2023-02-21 00:00:00 7588 [oz_av] [facility] BP Diastolic 2023-02-07 00:00:00 74 mm[Hg] [facility] Height 2023-02-07 00:00:00 66 [in_i] [facility] BMI (Body Mass Index) 2023-02-07 00:00:00 76.5 kg/m2 [facility] BP Systolic 2023-02-07 00:00:00 128 mm[Hg] [facility] Body Weight 2023-02-07 00:00:00 7588 [oz_av] [facility] BP Diastolic 2023-01-31 00:00:00 79 mm[Hg] [facility] Height 2023-01-31 00:00:00 66 [in_i] [facility] BMI (Body Mass Index) 2023-01-31 00:00:00 76.5 kg/m2 [facility] BP Systolic 2023-01-31 00:00:00 134 mm[Hg] [facility] Body Weight 2023-01-31 00:00:00 7584 [oz_av] [facility] BP Diastolic 2023-01-18 00:00:00 64 mm[Hg] [facility] Height 2023-01-18 00:00:00 66 [in_i] [facility] BMI (Body Mass Index) 2023-01-18 00:00:00 77.8 kg/m2 [facility] BP Systolic 2023-01-18 00:00:00 124 mm[Hg] [facility] Body Weight 2023-01-18 00:00:00 7712 [oz_av] [facility] BP Diastolic 2022-12-14 00:00:00 71 mm[Hg] [facility] Height 2022-12-14 00:00:00 66 [in_i] [facility] BMI (Body Mass Index) 2022-12-14 00:00:00 77.8 kg/m2 [facility] BP Systolic 2022-12-14 00:00:00 130 mm[Hg] [facility] Body Weight 2022-12-14 00:00:00 7712 [oz_av] [facility] BP Diastolic 2022-12-09 00:00:00 62.99 mm[Hg] [facility] Height 2022-12-09 00:00:00 66 [in_i] [facility] BMI (Body Mass Index) 2022-12-09 00:00:00 77.8 kg/m2 [facility] BP Systolic 2022-12-09 00:00:00 121 mm[Hg] [facility] Body Weight 2022-12-09 00:00:00 7712 [oz_av] [facility] BP Diastolic 2022-10-26 00:00:00 68 mm[Hg] [facility] Height 2022-10-26 00:00:00 66 [in_i] [facility] BMI (Body Mass Index) 2022-10-26 00:00:00 79.4 kg/m2 [facility] BP Systolic 2022-10-26 00:00:00 113 mm[Hg] [facility] Weight 2022-10-26 00:00:00 7872 [oz_av] [facility] BP Diastolic 2022-10-25 00:00:00 76 mm[Hg] [facility] Height 2022-10-25 00:00:00 66 [in_i] [facility] BMI (Body Mass Index) 2022-10-25 00:00:00 81.4 kg/m2 [facility] BP Systolic 2022-10-25 00:00:00 121 mm[Hg] [facility] Body Weight 2022-10-25 00:00:00 8066 [oz_av] [facility] BP Diastolic 2022-08-23 00:00:00 64 mm[Hg] [facility] Height 2022-08-23 00:00:00 66 [in_i] [facility] BMI (Body Mass Index) 2022-08-23 00:00:00 81.2 kg/m2 [facility] BP Systolic 2022-08-23 00:00:00 110 mm[Hg] [facility] Body Weight 2022-08-23 00:00:00 8048 [oz_av] [facility] BP Diastolic 2022-08-05 00:00:00 78 mm[Hg] [facility] Height 2022-08-05 00:00:00 66 [in_i] [facility] BMI (Body Mass Index) 2022-08-05 00:00:00 81.9 kg/m2 [facility] BP Systolic 2022-08-05 00:00:00 125 mm[Hg] [facility] Body Weight 2022-08-05 00:00:00 8114 [oz_av] [facility] BP Diastolic 2022-07-05 00:00:00 74 mm[Hg] [facility] Height 2022-07-05 00:00:00 66 [in_i] [facility] BMI (Body Mass Index) 2022-07-05 00:00:00 82.4 kg/m2 [facility] BP Systolic 2022-07-05 00:00:00 135 mm[Hg] [facility] Body Weight 2022-07-05 00:00:00 8168 [oz_av] [facility] BP Diastolic 2022-07-04 00:00:00 71 mm[Hg] [facility] Height 2022-07-04 00:00:00 66 [in_i] [facility] BMI (Body Mass Index) 2022-07-04 00:00:00 82.4 kg/m2 [facility] BP Systolic 2022-07-04 00:00:00 136 mm[Hg] [facility] Body Weight 2022-07-04 00:00:00 8168 [oz_av] [facility] BP Diastolic 2022-05-24 00:00:00 67 mm[Hg] [facility] Height 2022-05-24 00:00:00 66 [in_i] [facility] BMI (Body Mass Index) 2022-05-24 00:00:00 82.4 kg/m2 [facility] BP Systolic 2022-05-24 00:00:00 119 mm[Hg] [facility] Body Weight 2022-05-24 00:00:00 8168 [oz_av] [facility] BP Diastolic 2022-05-12 00:00:00 81 mm[Hg] [facility] Height 2022-05-12 00:00:00 66 [in_i] [facility] BMI (Body Mass Index) 2022-05-12 00:00:00 82.4 kg/m2 [facility] BP Systolic 2022-05-12 00:00:00 118 mm[Hg] [facility] Body Weight 2022-05-12 00:00:00 8168 [oz_av] [facility] BP Diastolic 2022-04-26 00:00:00 70 mm[Hg] [facility] Height 2022-04-26 00:00:00 66 [in_i] [facility] BMI (Body Mass Index) 2022-04-26 00:00:00 82.4 kg/m2 [facility] BP Systolic 2022-04-26 00:00:00 110 mm[Hg] [facility] Body Weight 2022-04-26 00:00:00 8168 [oz_av] [facility] BP Diastolic 2022-04-15 00:00:00 77 mm[Hg] [facility] Height 2022-04-15 00:00:00 66 [in_i] [facility] BMI (Body Mass Index) 2022-04-15 00:00:00 82.3 kg/m2 [facility] BP Systolic 2022-04-15 00:00:00 137 mm[Hg] [facility] Body Weight 2022-04-15 00:00:00 8160 [oz_av] [facility] BP Diastolic 2022-04-13 00:00:00 77 mm[Hg] [facility] Height 2022-04-13 00:00:00 66 [in_i] [facility] BMI (Body Mass Index) 2022-04-13 00:00:00 82.3 kg/m2 [facility] BP Systolic 2022-04-13 00:00:00 127 mm[Hg] [facility] Body Weight 2022-04-13 00:00:00 8160 [oz_av] [facility] BP Diastolic 2022-04-05 00:00:00 78 mm[Hg] [facility] Height 2022-04-05 00:00:00 66 [in_i] [facility] BMI (Body Mass Index) 2022-04-05 00:00:00 82.4 kg/m2 [facility] BP Systolic 2022-04-05 00:00:00 125 mm[Hg] [facility] Body Weight 2022-04-05 00:00:00 8168 [oz_av] [facility] BP Diastolic 2022-04-01 00:00:00 73 mm[Hg] [facility] Height 2022-04-01 00:00:00 66 [in_i] [facility] BMI (Body Mass Index) 2022-04-01 00:00:00 82.4 kg/m2 [facility] BP Systolic 2022-04-01 00:00:00 128 mm[Hg] [facility] Body Weight 2022-04-01 00:00:00 8168 [oz_av] [facility] BP Diastolic 2022-03-17 00:00:00 65 mm[Hg] [facility] Height 2022-03-17 00:00:00 66 [in_i] [facility] BMI (Body Mass Index) 2022-03-17 00:00:00 82.8 kg/m2 [facility] BP Systolic 2022-03-17 00:00:00 105 mm[Hg] [facility] Body Weight 2022-03-17 00:00:00 8210 [oz_av] [facility] BP Diastolic 2022-03-11 00:00:00 87 mm[Hg] [facility] Height 2022-03-11 00:00:00 66 [in_i] [facility] BMI (Body Mass Index) 2022-03-11 00:00:00 82.4 kg/m2 [facility] BP Systolic 2022-03-11 00:00:00 131 mm[Hg] [facility] Body Weight 2022-03-11 00:00:00 8168 [oz_av] [facility] BP Diastolic 2022-02-15 00:00:00 60 mm[Hg] [facility] Height 2022-02-15 00:00:00 66 [in_i] [facility] BMI (Body Mass Index) 2022-02-15 00:00:00 82.2 kg/m2 [facility] BP Systolic 2022-02-15 00:00:00 121 mm[Hg] [facility] Weight 2022-02-15 00:00:00 8148 [oz_av] [facility] BP Diastolic 2022-01-27 00:00:00 63 mm[Hg] [facility] Height 2022-01-27 00:00:00 66 [in_i] [facility] BMI (Body Mass Index) 2022-01-27 00:00:00 82.2 kg/m2 [facility] BP Systolic 2022-01-27 00:00:00 112 mm[Hg] [facility] Weight 2022-01-27 00:00:00 8150 [oz_av] [facility] BP Diastolic 2022-01-25 00:00:00 61 mm[Hg] [facility] Height 2022-01-25 00:00:00 66 [in_i] [facility] BMI (Body Mass Index) 2022-01-25 00:00:00 82.2 kg/m2 [facility] BP Systolic 2022-01-25 00:00:00 100 mm[Hg] [facility] Weight 2022-01-25 00:00:00 8150.4 [oz_av] [facility] Height 2020-02-27 12:35:00 167.64 CM Weight 2020-02-27 12:35:00 269.43 KG Body Temperature 2020-02-27 12:35:00 98 [degF] [facility] ([facility]) Pulse Rate 2020-02-27 12:35:00 94 /min [facility] Respiratory Rate 2020-02-27 12:35:00 18 /min [facility] ([facility]) O2% BldC Oximetry 2020-02-27 12:35:00 97 % [facility] ([facility] BP Systolic 2020-02-27 12:35:00 124 mm[Hg] [facility] BP Diastolic 2020-02-27 12:35:00 80 mm[Hg] [facility] Height 2020-02-27 12:35:00 66 [in_i] [facility] Weight 2020-02-27 12:35:00 594 [lb_av] [facility] BMI (Body Mass Index) 2020-02-27 12:35:00 96.6 kg/m2 [facility] ([facility]) Pulse Rate 2020-01-31 15:21:00 91 /min [facility] Respiratory Rate 2020-01-31 15:21:00 17 /min [facility] ([facility]) O2% BldC Oximetry 2020-01-31 15:21:00 93 % [facility] ([facility] BP Systolic 2020-01-31 12:34:00 126 mm[Hg] [facility] BP Diastolic 2020-01-31 12:34:00 72 mm[Hg] [facility] Body Temperature 2020-01-31 12:30:00 96.2 [degF] [facility] ([facility] Weight 2020-01-31 05:13:00 241 kg [facility] Height 2020-01-26 04:45:00 69 [in_i] [facility] Body Temperature 2020-01-04 18:00:00 98 [degF] [facility] ([facility] Pulse Rate 2020-01-04 18:00:00 70 /min [facility] Respiratory Rate 2020-01-04 18:00:00 17 /min [facility] ([facility]) O2% BldC Oximetry 2020-01-04 18:00:00 98 % [facility] ([facility] BP Systolic 2020-01-04 18:00:00 93 mm[Hg] [facility] BP Diastolic 2020-01-04 18:00:00 53 mm[Hg] [facility] Height 2020-01-04 13:35:00 69 [in_i] [facility] Weight 2020-01-04 13:35:00 500 [lb_av] [facility] BMI (Body Mass Index) 2020-01-04 13:35:00 74 kg/m2 [facility] ([facility]) Pulse Rate 2019-11-26 16:18:00 79 /min [facility] Respiratory Rate 2019-11-26 16:18:00 19 /min [facility] ([facility]) O2% BldC Oximetry 2019-11-26 16:18:00 97 % [facility] ([facility] BP Systolic 2019-11-26 16:18:00 104 mm[Hg] [facility] BP Diastolic 2019-11-26 16:18:00 69 mm[Hg] [facility] Body Temperature 2019-11-26 14:09:00 98.9 [degF] [facility] ([facility] Height 2019-11-26 14:09:00 69 [in_i] [facility] Weight 2019-11-26 14:09:00 227 kg [facility] BMI (Body Mass Index) 2019-11-26 14:09:00 74.1 kg/m2 [facility] ([facility]) Respiratory Rate 2017-09-15 17:59:00 19 /min [facility] ([facility]) BP Systolic 2017-09-15 17:59:00 139 mm[Hg] [facility] BP Diastolic 2017-09-15 17:59:00 85 mm[Hg] [facility] Body Temperature 2017-09-15 16:28:00 98.6 F [facility] ([facility]) O2% BldC Oximetry 2017-09-15 16:28:00 95 % [facility] ([facility]) Height 2017-09-15 16:28:00 69 in [facility] ([facility] Weight Measured 2017-09-15 16:28:00 405 lbs [facility] ([facility]) BMI (Body Mass Index) 2017-09-15 16:28:00 59.9 [facility] ([facility]) Procedures Procedure Date / Time Performing Clinician Source Performed ASST W/RESP VENT CON 2020-01-26 00:00:00 C HI [facility] ([facility]) Tubal Ligation [facility] Cholecystostomy [facility] Encounters Start End Encounter Admission Attending Care Care Encounter Source Date/Time Date/Time Type Type Clinicians Facility Department ID 2023-03-02 2023-03-02 Outpatient [facility] [id number] [facility]:00:00 00:00:00 d_J [id number] Medica l 2023-02-21 2023-02-21 [facility] [id number] [facility]:00:00 00:00:00 Gerri [facility] marcus : [address] [address] , Ph. 2023-02-20 2023-02-20 Outpatient [facility] PRIV [facility] [id number] [facility] 00:00:00 00:00:00 d_J [id number] Medica l 2023-02-20 2023-02-20 Outpatient [facility] [id number] [facility] 00:00:00 00:00:00 d_J [id number] Medica l 2023-02-20 2023-02-20 Outpatient [facility] [id number] [facility] 00:00:00 00:00:00 d_J [id number] Medica l 2023-02-07 2023-02-07 [facility] 425 [facility] 00:00:00 00:00:00 RUPINDER Villalpando: Health - Med ical [address] [address] , Ph. 2023-02-02 2023-02-02 Outpatient [facility] PR[facility] [id number] [facility] 00:00:00 00:00:00 d_J [id number] Medica l 2023-01-31 2023-01-31 [facility] [id number] [facility] 00:00:00 00:00:00 RUPINDER Villalpando: Health - Med ical [address] [address] , Ph. 2023-01-18 2023-01-18 [facility] [id number] [facility] 00:00:00 00:00:00 RUPINDER Villalpando: Health - Med ical [address] [address] , Ph. 2023-01-17 2023-01-17 Outpatient [facility] PR[facility]IV [id number] [facility] 00:00:00 00:00:00 d_J [id number] Medica l 2023-01-17 2023-01-17 Outpatient [facility] [id number] [facility] 00:00:00 00:00:00 d_J [id number] Medica l 2023-01-17 2023-01-17 Outpatient [facility] PRIV [id number] [facility] 00:00:00 00:00:00 d_J [id number] Medica l 2022-12-31 2022-12-31 Outpatient [facility] PRIV [id number] [facility] 00:00:00 00:00:00 d_J [id number] Medica l 2022-12-16 2022-12-16 Outpatient [facility] PRIV [id number] [facility] 00:00:00 00:00:00 d_J [id number] Medica l 2022-12-14 2022-12-14 [facility] 301 [facility] 00:00:00 00:00:00 RUPINDER Villalpando: Health - Med ical [address] [address] , Ph. 2022-12-09 2022-12-09 Outpatient [facility] PRIV PRIV [id number] [facility] 00:00:00 00:00:00 d_J [id number] Medica l 2022-12-09 2022-12-09 Outpatient [facility] PRIV [id number] [facility] 00:00:00 00:00:00 d_J [id number] Medica l 2022-12-09 [facility] 00:00:00 00:00:00 RUPINDER Villalpando: Health - Med ical [address] [address] , Ph. 2022-11-15 2022-11-15 Outpatient [facility] PRIV PRIV [id number] [facility] 00:00:00 00:00:00 d_J [id number] Medica l 2022-11-08 2022-11-08 Outpatient [facility] PRIV [id number] [facility] 00:00:00 00:00:00 d_J [id number] Medica l 2022-11-07 2022-11-07 Outpatient [facility] PRIV [id number] [facility] 00:00:00 00:00:00 d_J [id number] Medica l 2022-11-04 2022-11-04 Outpatient [facility] PRIV [id number] [facility] 00:00:00 00:00:00 d_J [id number] Medica l 2022-10-26 2022-10-26 Outpatient [facility] PRIV [id number] [facility] 00:00:00 00:00:00 d_J [id number] Medica l 2022-10-26 2022-10-26 Jojo [facility] [id number] [facility] 00:00:00 00:00:00 RUPINDER Villalpando: Health - Med ical [address] [address] , Ph. 2022-10-25 2022-10-25 Outpatient [facility] PR[facility] PRIV [id number] [facility] 00:00:00 00:00:00 d_J [id number] Medica l 2022-10-25 2022-10-25 Outpatient [facility] PRIV [id number] [facility] 00:00:00 00:00:00 d_J [id number] Medica l 2022-10-25 2022-10-25 Dennis Tom [facility] [id number] [facility] 00:00:00 00:00:00 Gerri [facility] - Med ical MD: [address] [address] , Ph. 2022-10-18 2022-10-18 Outpatient [facility] PRIV PRIV [id number] [facility] 00:00:00 00:00:00 d_J [id number] Medica l 2022-09-02 2022-09-02 Outpatient [facility] PRIV [id number] [facility] 00:00:00 00:00:00 d_J [id number] Medica l 2022-09-01 2022-09-01 Outpatient [facility] PRIV [id number] [facility] 00:00:00 00:00:00 d_J [id number] Medica l 2022-08-23 2022-08-23 [facility] [id number] [facility] 00:00:00 00:00:00 RUPINDER Villalpando: Health - Med ical [address] [address] , Ph. 2022-08-21 2022-08-21 Outpatient [facility] PR[facility] PRIV [id number] [facility] 00:00:00 00:00:00 d_J [id number] Medica l 2022-08-19 2022-08-19 Outpatient [facility] PRIV [id number] [facility] 00:00:00 00:00:00 d_J [id number] Medica l 2022-08-18 2022-08-18 Outpatient [facility] PRIV [id number] [facility] 00:00:00 00:00:00 d_J [id number] Medica l 2022-08-16 2022-08-16 Outpatient [facility] PRIV 239 [id number] [facility] 00:00:00 00:00:00 d_J [id number] Medica l 2022-08-05 2022-08-05 Outpatient [facility] PRIV [id number] [facility] 00:00:00 00:00:00 d_J [id number] Medica l 2022-08-05 2022-08-05 [facility] [id number] [facility] 00:00:00 00:00:00 RUPINDER Villalpando: Health - Med ical [address] [address] , Ph. 2022-08-02 2022-08-02 Outpatient [facility] PRIV PRIV [id number] [facility] 00:00:00 00:00:00 d_J [id number] Medica l 2022-07-29 2022-07-29 Outpatient [facility] PRIV [id number] [facility] 00:00:00 00:00:00 d_J [id number] Medica l 2022-07-05 2022-07-05 Outpatient [facility] PR[facility] PRIV [id number] [facility] 00:00:00 00:00:00 d_J [id number] Medica l 2022-07-05 2022-07-05 [facility] [id number] [facility] 00:00:00 00:00:00 RUPINDER Villalpando: Health - Med ical [address] [address] , Ph. 2022-07-04 2022-07-04 Dennis Santos [facility] [id number] [facility] 00:00:00 00:00:00 Gerri [facility] - Med ical MD: [address] [address] , Ph. 2022-06-22 2022-06-22 Outpatient [facility] PRIV PRIV [id number] [facility] 00:00:00 00:00:00 d_J [id number] Medica l 2022-06-02 2022-06-02 Outpatient [facility] PRIV [id number] [facility] 00:00:00 00:00:00 d_J [id number] Medica l 2022-05-24 2022-05-24 Outpatient [facility] PR[facility] PRIV [id number] [facility] 00:00:00 00:00:00 d_J [id number] Medica l 2022-05-24 2022-05-24 Jojo [facility] [id number] [facility] 00:00:00 00:00:00 RUPINDER Villalpando: Health - Med ical [address] [address] , Ph. 2022-05-24 2022-05-24 Outpatient Kwasi [facility] PRIV [id number] 00:00:00 00:00:00 Jojo [id number] 2022-05-16 2022-05-16 Outpatient [facility] PRIV PRIV [id number] [facility] 00:00:00 00:00:00 d_J [id number] Medica l 2022-05-12 2022-05-12 Outpatient [facility] PRIV PRIV [id number] [facility] 00:00:00 00:00:00 d_J [id number] Medica l 2022-05-12 2022-05-12 Outpatient Gerri, PRIV PRIV [id number] 00:00:00 00:00:00 Dennis Santos [id number] 2022-05-12 2022-05-12 Dennis Santos [facility] [id number] [facility] 00:00:00 00:00:00 Gerri [facility] - Med ical MD: [address] [address] , Ph. 2022-05-03 2022-05-03 Outpatient [facility] PRIV PRIV [id number] [facility] 11:55:00 11:55:00 d_J [id number] Medica l 2022-04-26 2022-04-26 Outpatient [facility] PRIV PRIV [id number] [facility] 01:36:00 01:36:00 d_J [id number] Medica l 2022-04-26 2022-04-26 Outpatient Kwasi, PRIV [facility] [id number] 00:00:00 00:00:00 Jojo [id number] 2022-04-26 2022-04-26 [facility] [id number] [facility] 00:00:00 00:00:00 RUPINDER Villalpando: Health - Med ical [address] [address] , Ph. 2022-04-24 2022-04-24 Outpatient [facility] PRIV PRIV [id number] [facility] 11:00:00 11:00:00 d_J [id number] Medica l 2022-04-22 2022-04-22 Outpatient [facility] PRIV PRIV [id number] [facility] 10:51:00 10:51:00 d_J [id number] Medica l 2022-04-21 2022-04-21 Outpatient [facility] PRIV PRIV 239 [id number] [facility] 11:47:00 11:47:00 d_J [id number] Medica l 2022-04-15 2022-04-15 Outpatient [facility] PRIV PRIV [id number] [facility] 04:12:00 04:12:00 d_J [id number] Medica l 2022-04-15 2022-04-15 [facility] [id number] [facility] 00:00:00 00:00:00 RUPINDER Villalpando: Health - Med ical [address] [address] , Ph. 2022-04-15 2022-04-15 Outpatient Kwasi, PRIV PRIV [id number] 00:00:00 00:00:00 Jojo [id number] 2022-04-13 2022-04-13 Outpatient [facility] PRIV PRIV [id number] [facility] 09:13:00 09:13:00 d_J [id number] Medica l 2022-04-13 2022-04-13 Outpatient Kwasi, PRIV PRIV [id number] 00:00:00 00:00:00 Jojo [id number] 2022-04-13 2022-04-13 [facility] [id number] [facility] 00:00:00 00:00:00 RUPINDER Villalpando: Health - Med ical [address] [address] , Ph. 2022-04-10 2022-04-10 Outpatient [facility] PRIV PRIV [id number] [facility] 10:44:00 10:44:00 d_J [id number] Medica l 2022-04-05 2022-04-05 Outpatient [facility] PRIV PRIV [id number] [facility] 04:56:00 04:56:00 d_J [id number] Medica l 2022-04-05 2022-04-05 Jojo [facility] [id number] [facility] 00:00:00 00:00:00 RUPINDER Villalpando: Health - Med ical [address] [address] , Ph. 2022-04-05 2022-04-05 Outpatient BRANDON [facility] PRIV [id number] 00:00:00 00:00:00 Jojo [id number] 2022-04-01 2022-04-01 Outpatient [facility] PRIV PRIV [id number] [facility] 06:30:00 06:30:00 d_J [id number] Medica l 2022-04-01 2022-04-01 Outpatient BRANDON [facility] PRIV [id number] 00:00:00 00:00:00 Jojo [id number] 2022-04-01 2022-04-01 Jojo [facility] [id number] [facility] 00:00:00 00:00:00 RUPINDER Villalpando: Health - Med ical [address] [address] , Ph. 2022-03-20 2022-03-20 Outpatient [facility] PRIV PRIV [id number] [facility] 10:40:00 10:40:00 d_J [id number] Medica l 2022-03-19 2022-03-19 Outpatient [facility] PRIV PRIV [id number] [facility] 10:41:00 10:41:00 d_J [id number] Medica l 2022-03-17 2022-03-17 Outpatient [facility] PRIV PRIV [id number] [facility] 02:04:00 02:04:00 d_J [id number] Medica l 2022-03-17 2022-03-17 Outpatient Gerri, PRIV PRIV [id number] 00:00:00 00:00:00 Dennis Santos [id number] 2022-03-17 Dennis Santos [facility] 202 [facility]00 00:00:[address] [facility]: [address] [address] , Ph. 2022-03-11 2022-03-11 Outpatient GC_BAHC_Tod PRIV PRIV [id number] [facility] 12:36:00 12:36:00 d_J [id number] Medica l 2022-03-11 2022-03-11 Outpatient Kwasi, PRIV PRIV [id number] 00:00:00 00:00:00 Jojo [id number] 2022-03-11 2022-03-11 [facility] 527 [facility] 00:00:00 00:00:00 RUPINDER Villalpando: Health - Med ical [address] [address] , Ph. 2022-02-23 2022-02-23 Outpatient GC_BAHC_Tod PRIV PRIV [id number] [facility] 10:53:00 10:53:00 d_J [id number] Medica l 2022-02-15 2022-02-15 Outpatient GC_BAHC_Tod PRIV PRIV [id number] [facility] 07:51:00 07:51:00 d_J [id number] Medica l 2022-02-15 2022-02-15 Outpatient Kwasi, PRIV PRIV [id number] 00:00:00 00:00:00 Jojo [id number] 2022-02-15 2022-02-15 Jojo PRIV [facility] [id number] [facility] 00:00:00 00:00:00 RUPINDER Villalpando: Health - Med ical [address] GC_BAHC[address] [address] , Ph. 2022-02-11 2022-02-11 Outpatient GC_BAHC_Tod PRIV PRIV [id number] [facility] 08:21:00 08:21:00 d_J [id number] Medica l 2022-02-08 2022-02-08 Outpatient GC_BAHC_Tod PRIV PRIV [id number] [facility] 08:40:00 08:40:00 d_J [id number] Medica l 2022-02-03 2022-02-03 Outpatient GC_BAHC_Tod PRIV PRIV [id number] [facility] 01:01:00 01:01:00 d_J [id number] Medica l 2022-02-02 2022-02-02 Outpatient GC_BAHC_Tod PRIV PRIV 239 [id number] [facility] 12:52:00 12:52:00 d_J [id number] Medica l 2022-02-01 2022-02-01 Outpatient GC_BAHC_Tod PRIV PRIV 239 [id number] [facility] 09:12:00 09:12:00 d_J [id number] Medica l 2022-01-27 2022-01-27 Outpatient GC_BAHC_Tod PRIV PRIV 239 [id number] [facility] 11:30:00 11:30:00 d_J [id number] Medica l 2022-01-27 2022-01-27 Outpatient Gerri, PRIV PRIV [id number] 00:00:00 00:00:00 Dennis Santos [id number] 2022-01-27 2022-01-27 Dennis Santos PRIV [facility] 202 [id number] [facility] 00:00:00 00:00:00 Gerri [facility] - Med ical : [address] GC[address]BAHC[address] [facility], [place] [address] , Ph. 2022-01-27 2022-01-27 Outpatient Gerri, PRIV PRIV [id number] 00:00:00 00:00:00 Dennis Santos [id number] 2022-01-25 2022-01-25 Outpatient GC_BAHC_Tod PRIV PRIV [id number] [facility] 02:06:00 02:06:00 dAnthony [id number] Medica l 2022-01-25 2022-01-25 Outpatient Kwasi, PRIV PRIV [id number] 00:00:00 00:00:00 Jojo [id number] 2022-01-25 2022-01-25 Jojo PRIV [facility] [id number] [facility] 00:00:00 00:00:00 RUPINDER Villalpando: Health - Med ical [address]BA[facility] [facility] , [place] [address] , Ph. 2022-01-25 2022-01-25 Outpatient Kwasi, PRIV PRIV [id number] 00:00:00 00:00:00 Jojo [id number] 2022-01-24 2022-01-24 Outpatient GC_BAHC_Tod PRIV PRIV [id number] [facility] 03:10:00 03:10:00 d_Teresa [id number] Medica l 2022-01-21 2022-01-21 Outpatient GC_BAHC_Spa PRIV PRIV [id number] [facility] 05:16:00 05:16:00 Jaspreet [id number] Medica l 2020-02-27 2020-02-27 [facility] [id number] [facility] 12:33:00 14:29:00 SYMPTOMS [facility] N, [address], (LUF/[place] [address] 2020-01-26 2020-01-31 HTN HEART E PILAR GOMEZ [facility] [id number] 03:15:00 15:55:00 DISEASE [place] L ukes W/HEART N, [address], (LUF/[place] [address] 2020-01-04 2020-01-04 Inpatient [facility] [place] [id number] [facility] 22:01:00 23:59:00 [facility] [address], V/SA) [place] [address] 2020-01-04 2020-01-04 CELLULITIS E STELLA, [facility] [id number] 13:30:00 18:53:00 OF LEFT ELENA Flores ukes LOWER LIMB N, [address], (LUF/[place] [address] 2019-11-26 2019-11-26 VENOUS 1 LEORA, [facility] [id number] 14:08:00 17:30:00 INSUFF VELMA Flores ukes CHRONIC N, [address], (LUF/[place] [address] 2018-11-15 2018-11-15 SHORTNESS 3 BALAKRISHNA [facility] [id number] [facility] 14:59:00 23:59:00 OF BREATH , TIM [facility] [address] ([address], V/SA) [place] [address] 2018-06-08 2018-06-08 COPD 3 MAYELIN, [facility] [id number] [facility] 11:43:00 23:59:00 UNSPECIFIE JUSTO [facility] D N, [address], (LUF[place] [address] 2017-09-16 2017-09-16 Inpatient DE ANDA, [facility] [id number] 00:36:00 23:59:00 GANESH [facility] [address] ([address], V/SA) [place] [address] 2017-09-15 2017-09-15 CELLULITIS E MOHAN, [facility] [id number] 16:11:00 19:30:00 OF RIGHT LAUREN Bond L[place] N, [address], (LUF/[place] [address] Results Test Description Test Time Test Comments Results Result Comments Source BASIC METABOLIC PANEL 2022-12-12 00:56:00 Test Item Value Reference Range Interpretation Comme nts SODIUM (test code = NA) 136 mmol/L 135-145 N POTASSIUM (test code = K) 4.5 mmol/L 3.6-5.0 N CHLORIDE (test code = CL) 87 mmol/L 101-111 L CARBON DIOXIDE (test code 41 mmol/L 21-31 H = CO2) GLUCOSE (test code = GLU) 228 mg/dl 70-100 H BLOOD UREA NITROGEN (test 9 mg/dl 6-20 N code = BUN) GLOMERULAR FILTRATION RATE >=60 max estimate >60 The Glomerular Filtration (test code = GFR) Rate is a calculated parameterbased on serum Creatinine, pat ient age and sex. GFR values less than 60 mL/min/1.73 squ are meters are indicative ofCh ronic Kidney Disease. Values less than 15 mL/min/1.73squa re meters indicate Kidney failure. The calculation for GFR is based on the CKD-EPI (2020) calculation. Th is formulais race indifferen t and is the recommended for anuradha for GFRby the National [facility] Foundation for Adults.The GFR will not calcul ate if the sex is unknown or i f thepatient's age is <18 year s. CREATININE (test code = 0.55 mg/dL 0.44-1.03 N CREAT) CALCIUM (test code = CA) 8.9 mg/dL 8.5-10.5 N CBC W/AUTO [id number] 00:45:00 Test Item Value Reference Range Interpretation Comments WHITE BLOOD CELL (test code = 7.7 x10 3/uL 3.2-11.5 N WBC) RED BLOOD CELL (test code = 4.25 x10(6)/m 3.70-5.10 N RBC) HEMOGLOBIN (test code = HGB) 11.8 g/dL 12.0-15.0 L HEMATOCRIT (test code = HCT) 39.7 % 35.7-44.8 N MEAN CELL VOLUME (test code = 93 fL 80-100 N MCV) MEAN CELL HGB (test code = MCH) 27.8 pg 26.2-33.8 N MEAN CELL HGB CONCENTRATION 29.7 g/dL 30.0-34.0 L (test code = MCHC) RED CELL DISTRIBUTION WIDTH 15.3 % 11.3-14.5 H (test code = RDW) PLATELET COUNT (test code = 261 x10 3/uL 130-408 N PLT) MEAN PLATELET VOLUME (test code 10.6 fL 8.6-12.6 N = MPV) NEUTROPHIL % (test code = NT%) 75.4 % 40.0-70.0 H IMMATURE GRANULOCYTE % (test 0.3 % 0.0-2.0 N code = IG%) LYMPHOCYTE % (test code = LY%) 17.2 % 20-40 L MONOCYTE % (test code = MO%) 5.0 % 1-10 N EOSINOPHIL % (test code = EO%) 1.8 % 0.0-5.0 N BASOPHIL % (test code = BA%) 0.3 % 0.0-1.0 N NUCLEATED RBC % (test code = 0.0 % 0.0-0.9 N NRBC%) NEUTROPHIL # (test code = NT#) 5.8 x10 3/uL 1.6-7.2 N LYMPHOCYTE # (test code = LY#) 1.33 x10 3/uL 1.1-2.7 N MONOCYTE # (test code = MO#) 0.4 x10 3/uL 0.3-0.8 N EOSINOPHIL # (test code = EO#) 0.1 x10 3/uL 0.0-0.5 N BASOPHIL # (test code = BA#) 0.0 x10 3/uL 0.0-0.1 N BASIC METABOLIC [id number] 23:08:00 Test Item Value Reference Range Interpretation Comments SODIUM (test code 139 mmol/L 135-145 N = NA) POTASSIUM (test 4.6 mmol/L 3.6-5.0 N code = K) CHLORIDE (test 89 mmol/L 101-111 L code = CL) CARBON DIOXIDE 44 mmol/L 21-31 H (test code = CO2) GLUCOSE (test code 270 mg/dl 70-100 H = GLU) BLOOD UREA 11 mg/dl 6-20 N NITROGEN (test code = BUN) GLOMERULAR >=60 max >60 The estimated FILTRATION RATE estimate glomerular (test code = GFR) filtration rate is computed usingpatient ra ce, age (>18), sex, and serum creatinin e. If anyof the neede d data elements a re missing the Laboratory samy ot compute an estimation of t he glomerular filtration rate . CREATININE (test 0.63 mg/dL 0.44-1.03 N code = CREAT) CALCIUM (test code 8.9 mg/dL 8.5-10.5 N = CA) [id number] 22:59:00 Test Item Value Reference Range Interpretation Comments AMMONIA (test code = AMM) 67 umol/L 11-35 H CBC W/AUTO [id number] 22:44:00 Test Item Value Reference Range Interpretation Comments WHITE BLOOD CELL (test code = 8.4 x10 3/uL 3.2-11.5 N WBC) RED BLOOD CELL (test code = 3.67 x10(6)/m 3.70-5.10 L RBC) HEMOGLOBIN (test code = HGB) 10.2 g/dL 12.0-15.0 L HEMATOCRIT (test code = HCT) 35.5 % 35.7-44.8 L MEAN CELL VOLUME (test code = 97 fL 80-100 N MCV) MEAN CELL HGB (test code = MCH) 27.8 pg 26.2-33.8 N MEAN CELL HGB CONCENTRATION 28.7 g/dL 30.0-34.0 L (test code = MCHC) RED CELL DISTRIBUTION WIDTH 15.0 % 11.3-14.5 H (test code = RDW) PLATELET COUNT (test code = 263 x10 3/uL 130-408 N PLT) MEAN PLATELET VOLUME (test code 10.5 fL 8.6-12.6 N = MPV) NEUTROPHIL % (test code = NT%) 73.6 % 40.0-70.0 H LYMPHOCYTE % (test code = LY%) 17.2 % 20-40 L MONOCYTE % (test code = MO%) 5.6 % 1-10 N EOSINOPHIL % (test code = EO%) 2.4 % 0.0-5.0 N BASOPHIL % (test code = BA%) 0.4 % 0.0-1.0 N NUCLEATED RBC % (test code = 0.0 % 0.0-0.9 N NRBC%) NEUTROPHIL # (test code = NT#) 6.2 x10 3/uL 1.6-7.2 N LYMPHOCYTE # (test code = LY#) 1.45 x10 3/uL 1.1-2.7 N MONOCYTE # (test code = MO#) 0.5 x10 3/uL 0.3-0.8 N EOSINOPHIL # (test code = EO#) 0.2 x10 3/uL 0.0-0.5 N IMMATURE GRANULOCYTE % (test 0.8 % 0.0-2.0 N code = IG%) BASOPHIL # (test code = BA#) 0.0 x10 3/uL 0.0-0.1 N Cholesterol in LDL [Mass/volume] in Serum or [id number] 00:00:00 Test Item Value Reference Range Interpretation Comments Cholesterol in LDL [Mass/volume] in 55 Serum or Plasma (test code = 2089-1) [facility] in LDL [Mass/volume] in Serum or [id number] 00:00:00 Test Item Value Reference Range Interpretation Comments Cholesterol in LDL [Mass/volume] in 55 Serum or Plasma (test code = 2089-1) [facility] Medical[facility] in LDL [Mass/volume] in Serum or [id number] 00:00:00 Test Item Value Reference Range Interpretation Comments Cholesterol in LDL [Mass/volume] in 55 Serum or Plasma (test code = 2089-1) [facility], [id number] 10:36:00Specimen: BloodCollected: 01/25/2020 23:40 Status: Final Last Updated: 01/31/2020 10:36 Culture Result (Final) (Final) No Growth After 5 DaysF[facility] HospitalCUCH[facility] [id number] 10:36:00Specimen: BloodCollected: 01/25/2020 23:40 Status: Final Last Updated: 01/31/2020 10:36 Culture Result (Final) (Final) No Growth After 5 DaysJonathan Ville [id number] 12:41:00 Test Item Value Reference Range Interpretation Comments Glucose (test code 228 mg/dl 75-110 H = GLU) BUN (test code = 20.0 mg/dl 6.0-17.0 H BUN) Creatinine (test 0.7 mg/dl 0.4-1.2 code = CREA) Sodium (test code = 132 mmol/l 137-145 L NA) Potassium (test 4.9 mmol/l 3.5-5.0 code = K) Chloride (test code 93 mmol/l 98-107 L = CL) CO2 (test code = 36 mmol/l 22-30 H CO2) Calcium (test code 9.3 mg/dl 8.4-10.2 = CALC) EGFR if >60 Trin[place] (test code mL/min/1.73m\\ = EGFRAA) S\\2 EGFR if Non- >60 Estimate d Glomerular Trin[place] (test code mL/min/1.73m\\ Filtrat ion Rate (eGFR) = EGFRNA) S\\2 Reference Inter vals Decision Points for 18 years and older and average body ma ss: >= 60 Does not exc lude kidney disease. 30 - 59 Suggests mod erate chronic kidney disease and indicates t he need for further investigation including asses sment of proteinuria and cardiovascular factors. < 30 U sually indicates a nee d for referral for assessment and management of c hronic kidney failure. [facility] HospitalBMP2020-04-[facility] 10:36:00 Test Item Value Reference Range Interpretation Comments Glucose (test code 189 mg/dl 75-110 H = GLU) BUN (test code = 23.0 mg/dl 6.0-17.0 H BUN) Creatinine (test 0.8 mg/dl 0.4-1.2 code = CREA) Sodium (test code = 135 mmol/l 137-145 L NA) Potassium (test 4.5 mmol/l 3.5-5.0 code = K) Chloride (test code 93 mmol/l 98-107 L = CL) CO2 (test code = 39 mmol/l 22-30 H CO2) Calcium (test code 8.8 mg/dl 8.4-10.2 = CALC) EGFR if >60 Trin[place]adian (test code mL/min/1.73m\\ = EGFRAA) S\\2 EGFR if Non- >60 Estimate d Glomerular Trin[place] (test code mL/min/1.73m\\ Filtrat ion Rate (eGFR) = EGFRNA) S\\2 Reference Inter vals Decision Points for 18 years and older and average body ma ss: >= 60 Does not exc lude kidney disease. 30 - 59 Suggests mod erate chronic kidney disease and indicates t he need for further investigation including asses sment of proteinuria and cardiovascular factors. < 30 U sually indicates a nee d for referral for assessment and management of c hronic kidney failure. [facility] HospitalCB WITH AUTO [id number] 09:59:00 Test Item Value Reference Range Interpretation Comments WBC (test code = WBC) 11.73 10\\S\\3/ul 4.80-10.80 H RBC (test code = RBC) 3.97 10\\S\\6/ul 4.20-5.40 L Hemoglobin (test code = HGB) 11.5 gm/dl 12.0-14.0 L Hematocrit (test code = HCT) 36.9 % 37.0-47.0 L MCV (test code = MCV) 92.9 fL 81.0-99.0 MCH (test code = MCH) 29.0 pg 27.0-31.0 MCHC (test code = MCHC) 31.2 gm/dl 33.0-37.0 L RDW (test code = RDWVC) 15.7 % 11.5-14.5 H Platelet (test code = PLT) 249 10\\S\\3/ul 130-400 MPV (test code = MPV) 9.6 fL 7.4-10.4 A NE% (test code = NE) 65.8 % 42.0-75.0 LY% (test code = LY) 27.7 % 13.0-42.0 MO% (test code = MO) 5.5 % 4.0-14.0 EO% (test code = EO) 0.5 % 1.0-5.0 L BA% (test code = BA) 0.1 % 0.0-3.0 IG% (test code = IG%) 0.4 % 0.0-0.4 [facility] HospitalURINALYSIS WITH [id number] 06:21:00 Test Item Value Reference Range Interpretation Comments Color (test code = UCOLR) Yellow Clarity (test code = UCLAR) Clear Glucose (test code = UGLUC) NEGATIVE NEGATIVE N Bilirubin (test code = UBILI) NEGATIVE NEGATIVE N Ketones (test code = UKET) TRACE NEGATIVE A Specific [place] (test code = 1.020 1.005-1.030 A USPGR) Blood (test code = UBLD) Trace-Intact NEGATIVE A PH (test code = UPH) 7.0 4.5-8.0 A Protein (test code = UPROT) Trace NEGATIVE A Urobilinogen (test code = U 0.2 >0.2 N UROB) Nitrite (test code = UNITR) NEGATIVE NEGATIVE N Leukocyte Esterase (test code = NEGATIVE NEGATIVE N ULEUK) WBC (test code = WBCUR) 1-3 0-5 A RBC (test code = RBCUR) 3-5 0-5 A Epithial Cells (test code = U 0-1 0-10 A EPI) Mucous (test code = UMUC) Trace None Seen A Bacteria (test code = UBACT) Trace None Seen,Trace N [facility]BMP2020-[facility] 05:47:00 Test Item Value Reference Range Interpretation Comments Glucose (test code 151 mg/dl 75-110 H = GLU) BUN (test code = 22.0 mg/dl 6.0-17.0 H BUN) Creatinine (test 0.7 mg/dl 0.4-1.2 code = CREA) Sodium (test code = 136 mmol/l 137-145 L NA) Potassium (test 4.4 mmol/l 3.5-5.0 code = K) Chloride (test code 96 mmol/l 98-107 L = CL) CO2 (test code = 38 mmol/l 22-30 H CO2) Calcium (test code 8.7 mg/dl 8.4-10.2 = CALC) EGFR if >60 Trinidadian (test code mL/min/1.73m\\ = EGFRAA) S\\2 EGFR if Non- >60 Estimate d Glomerular Trin[place] (test code mL/min/1.73m\\ Filtrat ion Rate (eGFR) = EGFRNA) S\\2 Reference Inter vals Decision Points for 18 years and older and average body ma ss: >= 60 Does not exc lude kidney disease. 30 - 59 Suggests mod erate chronic kidney disease and indicates t he need for further investigation including asses sment of proteinuria and cardiovascular factors. < 30 U sually indicates a nee d for referral for assessment and management of c hronic kidney failure. [facility]CB WITH AUTO [id number] 05:46:00 Test Item Value Reference Range Interpretation Comments WBC (test code = 14.11 4.80-10.80 H WBC) 10\\S\\3/ul RBC (test code = 3.93 10\\S\\6/ul 4.20-5.40 L RBC) Hemoglobin (test 11.2 gm/dl 12.0-14.0 L code = HGB) Hematocrit (test 38.1 % 37.0-47.0 code = HCT) MCV (test code = 96.9 fL 81.0-99.0 MCV) MCH (test code = 28.5 pg 27.0-31.0 MCH) MCHC (test code = 29.4 gm/dl 33.0-37.0 L MCHC) RDW (test code = 15.9 % 11.5-14.5 H RDWVC) Platelet (test code 259 10\\S\\3/ul 130-400 = PLT) MPV (test code = 9.7 fL 7.4-10.4 A "NOT MEASUR ED" MPV) RESULTS ARE DIS PLAYED WHEN THE INSTRU MENT HAS A SUPPRESSE D OR UNREPORTABLE RE SULT. THIS WILL MOST OFTEN HAPPEN WITH THE MPV WHEN THERE IS A N ABNORMAL PLATEL ET DISTRIBUTION DU E TO A CRITICAL LOW VA LUE OR PLATELET CLUMPI NG. THE RDW MAY BE SUPPRESSED IF T HERE ARE MULTIPLE PE AKS PRESENT ON THE RBC HISTOGRAM. IN T HIS CASE, A MANUAL REVIEW OF THE SLIDE WI LL BE PERFORMED, AND RBC MORPHOLOGY WILL BE NOTED ON THE RE PORT. NE% (test code = 72.6 % 42.0-75.0 NE) LY% (test code = 19.4 % 13.0-42.0 LY) MO% (test code = 6.7 % 4.0-14.0 MO) EO% (test code = 0.4 % 1.0-5.0 L EO) BA% (test code = 0.2 % 0.0-3.0 BA) IG% (test code = 0.7 % 0.0-0.4 H IG%) [facility]MP[facility] 04:49:00 Test Item Value Reference Range Interpretation Comments Glucose (test code 288 mg/dl 75-110 H = GLU) BUN (test code = 17.0 mg/dl 6.0-17.0 BUN) Creatinine (test 0.8 mg/dl 0.4-1.2 code = CREA) Sodium (test code = 134 mmol/l 137-145 L NA) Potassium (test 4.8 mmol/l 3.5-5.0 code = K) Chloride (test code 96 mmol/l 98-107 L = CL) CO2 (test code = 34 mmol/l 22-30 H CO2) Calcium (test code 8.9 mg/dl 8.4-10.2 = CALC) EGFR if >60 Trinidadian (test code mL/min/1.73m\\ = EGFRAA) S\\2 EGFR if Non- >60 Estimate d Glomerular Trin[place] (test code mL/min/1.73m\\ Filtrat ion Rate (eGFR) = EGFRNA) S\\2 Reference Inter vals Decision Points for 18 years and older and average body ma ss: >= 60 Does not exc lude kidney disease. 30 - 59 Suggests mo derate chronic kidney disease and indicates t he need for further investigation including asses sment of proteinuria and cardiovascular factors. < 30 U sually indicates a nee d for referral for assessment and management of c hronic kidney failure. [facility] WITH AUTO [id number] 04:24:00 Test Item Value Reference Range Interpretation Comments WBC (test code = 11.84 4.80-10.80 H WBC) 10\\S\\3/ul RBC (test code = 3.85 10\\S\\6/ul 4.20-5.40 L RBC) Hemoglobin (test 11.2 gm/dl 12.0-14.0 L code = HGB) Hematocrit (test 36.9 % 37.0-47.0 L code = HCT) MCV (test code = 95.8 fL 81.0-99.0 MCV) MCH (test code = 29.1 pg 27.0-31.0 MCH) MCHC (test code = 30.4 gm/dl 33.0-37.0 L MCHC) RDW (test code = 15.9 % 11.5-14.5 H RDWVC) Platelet (test code 263 10\\S\\3/ul 130-400 = PLT) MPV (test code = 10.0 fL 7.4-10.4 A "NOT MEASUR ED" MPV) RESULTS ARE DIS PLAYED WHEN THE INSTRU MENT HAS A SUPPRESSE D OR UNREPORTABLE RE SULT. THIS WILL MOST OFTEN HAPPEN WITH THE MPV WHEN THERE IS A N ABNORMAL PLATEL ET DISTRIBUTION DU E TO A CRITICAL LOW VA LUE OR PLATELET CLUMPI NG. THE RDW MAY BE SUPPRESSED IF T HERE ARE MULTIPLE PE AKS PRESENT ON THE RBC HISTOGRAM. IN T HIS CASE, A MANUAL REVIEW OF THE SLIDE WI LL BE PERFORMED, AND RBC MORPHOLOGY WILL BE NOTED ON THE RE PORT. NE% (test code = 84.0 % 42.0-75.0 H NE) LY% (test code = 10.6 % 13.0-42.0 L LY) MO% (test code = 4.4 % 4.0-14.0 MO) EO% (test code = 0.1 % 1.0-5.0 L EO) BA% (test code = 0.2 % 0.0-3.0 BA) IG% (test code = 0.7 % 0.0-0.4 H IG%) [facility] [id number] 21:16:00 Test Item Value Reference Range Interpretation Comments Troponin-I (test <0.015 ng/ml 0.000-0.034 N [address] URL code = TROP) is 0.045 ng/mL for the [employer] [place] T roponin I. The Joint Europ jimi Society of Cardiology/Amer [facility] College of Card iology (ESC/ACC) and t he National [facility] y of Clinical [place] amadou Standards of La boratory Practices (NACB ) recommends that the diagnosis of AM I includes the presence of clinical history suggest glo of Acute Coronary Syndrome (ACS) and a max imum concentration o f cardiac troponin exceed ing the 99th percentile of a normal referenc e population [upp er reference limit (URL)] on at least one oc casion during the firs t 24 hours after the clini jack event. [facility] [id number] 13:14:00 Test Item Value Reference Range Interpretation Comments Troponin-I (test <0.015 ng/ml 0.000-0.034 N [address] URL code = TROP) is 0.045 ng/mL for the [employer] [place] T roponin I. The Joint Europ jimi Society of Cardiology/Amer [facility] College of Card iology (ESC/ACC) and marilynn barber [facility] amadou Standards of La boratory Practices (NACB ) recommends that the diagnosis of AM I includes the presence of clinical history suggest glo of Acute Coronary Syndrome (ACS) and a max imum concentration o f cardiac troponin exceed ing the 99th percentile of a normal referenc e population [upp er reference limit (URL)] on at least one oc casion during the firs t 24 hours after the clini jack event. [facility] HospitalLACTIC ACID [id number] 06:06:00 Test Item Value Reference Range Interpretation Comments LACTATE (test code = LAC) 2.8 mmol/l 0.7-2.0 HH repeat Critical values were called to Ramón Fatima RN by [id number] on 01/26/20 06:06 CDT. Results were read back by Ramón Fatima RN.[facility] HospitalD-DIMER [id number] 06:02:00 Test Item Value Reference Range Interpretation Comments D DIMER (test 0.98 mg/L FEU 0.19-0.50 H METHOD CHANGE : 11/21/2012 code = D DIM) Due to the dis continued mehodology curr ently in use, a change i n the testing method is necessary. The Reference Ranges will radha nge dramatically, a nd results are obt ained by the observance of clotting activa tion mesured on the [employer] instruments. T his same methodology is currently in use for PT/I NR , PTT, AND HEPARIN manju ting in our Labs. The D -Dimer assay is an aid in the evaluation of thromboembolic events, as in DIC, DVT, Pulmonary Embol ism, and other thromboem bolic diseases, and s hould not be used without other diagnostic abelino ures, to properly diagno se and treat thromboem bolic disease. REFERE NCE RANGE: 0.19 - 0 .50 mg/L FEU (Fibrinogen Equivalent Unit s) Cut-Off Value i s: > .50 mg/L FEU Note: Results greater than (> ) the Cut-Off are to be considered POSI TIVE, and significant in the evaluation of thromboembolic diseases. Results less th an (<) the Cut-Off are to be considered NEGA TIVE, and a low probabili ty of thromboembolic disease. [facility]MP[facility] 05:31:00 Test Item Value Reference Range Interpretation Comments Glucose (test code 212 mg/dl 75-110 H = GLU) BUN (test code = 15.0 mg/dl 6.0-17.0 BUN) Creatinine (test 0.8 mg/dl 0.4-1.2 code = CREA) Sodium (test code = 133 mmol/l 137-145 L NA) Potassium (test 4.7 mmol/l 3.5-5.0 code = K) Chloride (test code 95 mmol/l 98-107 L = CL) CO2 (test code = 33 mmol/l 22-30 H CO2) Calcium (test code 9.2 mg/dl 8.4-10.2 = CALC) EGFR if >60 Trin[place]adian (test code mL/min/1.73m\\ = EGFRAA) S\\2 EGFR if Non- >60 Estimate d Glomerular Trin[place] (test code mL/min/1.73m\\ Filtrat ion Rate (eGFR) = EGFRNA) S\\2 Reference Inter vals Decision Points for 18 years and older and average body ma ss: >= 60 Does not exc lude kidney disease. 30 - 59 Suggests mod erate chronic kidney disease and indicates t he need for further investigation including asses sment of proteinuria and cardiovascular factors. < 30 U sually indicates a nee d for referral for assessment and management of c hronic kidney failure. [facility] HospitalTROPONIN-I [id number] 05:31:00 Test Item Value Reference Range Interpretation Comments Troponin-I (test <0.015 ng/ml 0.000-0.034 N [address] URL code = TROP) is 0.045 ng/mL for the [employer] [place] T roponin I. The Joint Europ jimi Society of Cardiology/Amer [facility] College of Card iology (ESC/ACC) and t he National [facility] y of Clinical [place] amadou Standards of La boratory Practices (NACB ) recommends that the diagnosis of AM I includes the presence of clinical history suggest glo of Acute Coronary Syndrome (ACS) and a max imum concentration o f cardiac troponin exceed ing the 99th percentile of a normal referenc e population [upp er reference limit (URL)] on at least one oc casion during the firs t 24 hours after the clini jack event. [facility] WITH AUTO [id number] 05:06:00 Test Item Value Reference Range Interpretation Comments WBC (test code = WBC) 12.60 10\\S\\3/ul 4.80-10.80 H RBC (test code = RBC) 4.10 10\\S\\6/ul 4.20-5.40 L Hemoglobin (test code = HGB) 11.8 gm/dl 12.0-14.0 L Hematocrit (test code = HCT) 38.4 % 37.0-47.0 MCV (test code = MCV) 93.7 fL 81.0-99.0 MCH (test code = MCH) 28.8 pg 27.0-31.0 MCHC (test code = MCHC) 30.7 gm/dl 33.0-37.0 L RDW (test code = RDWVC) 16.1 % 11.5-14.5 H Platelet (test code = PLT) 281 10\\S\\3/ul 130-400 MPV (test code = MPV) 9.8 fL 7.4-10.4 A NE% (test code = NE) 88.3 % 42.0-75.0 H LY% (test code = LY) 8.7 % 13.0-42.0 L MO% (test code = MO) 1.5 % 4.0-14.0 L EO% (test code = EO) 0.2 % 1.0-5.0 L BA% (test code = BA) 0.4 % 0.0-3.0 IG% (test code = IG%) 0.9 % 0.0-0.4 H [facility] HospitalGLYCOSALATED [id number] 03:19:00 Test Item Value Reference Range Interpretation Comments Hemoglobin A1C (test 6.4 % 4.2-6.[address] RESULTS FOR code = GLYCO) A1C EXCEED 14. 0, THE LINEAR LIMIT OF THE INSTRUMENT, THE CALCULATED RESU LT FOR THE MEAN GLUCOS E IS NOT RELIABLE. Mean Plasma Glucose 151 mg/dl 90-180 WHEN MANJU T RESULTS FOR (test code = MPG) A1C EXCEED 14.0, THE LINEAR LIMIT OF THE INSTRUMENT, THE CALCULATED RESU LT FOR THE MEAN GLUCOS E IS NOT RELIABLE. Formerly named [facility] (Ultra Sensitive)2020-01-26 02:57:00 Test Item Value Reference Range Interpretation Comments TSH (test code = TSH) 5.28 mIU/L 0.47-4.68 H [facility] HospitalXR CHEST AP/PA 1 [id number] 00:53:02 EXAMINATION: XR CHEST AP/PA 1 VIEWINDICATION: [id number]: DyspneaCOMPARISON: Chest x-ray dated November 26, 2019FINDINGS: AP viewTUBES and LINES: None.LUNGS: Limited by body habitus. Lungs are well inflated. Pulmonary vascularcongestion and mild interstitial edema.PLEURA: No significant pleural effusion or pneumothorax.HEART AND MEDIASTINUM: The cardiomediastinal silhouette is enlarged.BONES AND SOFT TISSUES: No acute osseous lesion. Soft tissues areunremarkable.UPPER ABDOMEN: No free air under the di aphragm.IMPRESSION:Enlarged cardiac silhouette, pulmonary vascular congestion, and mildinterstitial edema. Underlying pneumonia cannot be excluded in the appropriateclinical context.This final report was electronically signed by Dr Hung Branch MD 01/26/202012:46 AMDictated By: HUNG BRANCHDate: 01/26/2020 00:46[facility]INGSTONLACTIC ACID [id number] 00:25:00 Test Item Value Reference Range Interpretation Comments LACTATE (test code = LAC) 2.1 mmol/l 0.7-2.0 HH Critical values were called to Renetta Donato RN by [id number] on 01/26/20 00:25 CDT. Results were read back by Renetta Donato RN.[facility] HospitalTROPONIN-I [id number] 00:25:00 Test Item Value Reference Range Interpretation Comments Troponin-I (test <0.015 ng/ml 0.000-0.034 N [address] URL code = TROP) is 0.045 ng/mL for the [employer] [place] T roponin I. The Joint [employer] of Cardiology/[employer] [facility] [employer] iology (ESC/ACC) and marilynn barber [facility] of Clinical [facility] amadou Standards of [place] boratory Practices (NACB ) recommends that the diagnosis of AM I includes the presence of clinical history suggest glo of Acute Coronary Syndrome (ACS) and a max imum concentration o f cardiac troponin exceed ing the 99th percentile of a normal referenc e population [upp er reference limit (URL)] on at least one oc casion during the firs t 24 hours after the clini jack event. [facility](B-Type Natriuretic Peptide)2020-01-26 00:25:00 Test Item Value Reference Range Interpretation Comments Pro-BNP(B-Peptide) 752 pg/ml 0-125 H Critical result called (test code = PROBNP) to Norma Donato RN; result read delia k [facility]MP2020-04-12 00:23:00 Test Item Value Reference Range Interpretation Comments Glucose (test code 136 mg/dl 75-110 H = GLU) BUN (test code = 15.0 mg/dl 6.0-17.0 BUN) Creatinine (test 0.7 mg/dl 0.4-1.2 code = CREA) Sodium (test code = 136 mmol/l 137-145 L NA) Potassium (test 4.2 mmol/l 3.5-5.0 code = K) Chloride (test code 98 mmol/l 98-107 = CL) CO2 (test code = 35 mmol/l 22-30 H CO2) Calcium (test code 9.0 mg/dl 8.4-10.2 = CALC) T Protein (test 7.5 gm/dl 5.1-8.7 code = TP) Albumin (test code 2.9 gm/dl 3.5-4.6 L = ALB) A/G Ratio (test 0.6 % 1.1-2.2 L code = AGRAT) AST (SGOT) (test 16 U/L 11-36 code = AST) ALT (SGPT) (test 29 U/L 11-40 code = ALT) Alkaline Phos (test 95 U/L 47-114 code = ALKP) Total Bilirubin 0.2 mg/dl 0.2-1.2 (test code = TBIL) Globulin (test code 4.6 gm/dl 2.3-3.5 H = GLOBU) Calcium, Corrected 9.9 mg/dl 8.4-10.2 Various f ormulas exist (test code = for corrected s trinity CALCCORR) calcium results , each yielding differ ent values. This co rrected result was base d on the formula: Co rrected Calcium = Serum Calcium + [0.8 * ( 4 - SerumAlbumin)] EGFR if >60 Trinidadian (test code mL/min/1.73m\\ = EGFRAA) S\\2 EGFR if Non- >60 Estimate d Glomerular Trin[place] (test code mL/min/1.73m\\ Filtrat ion Rate (eGFR) = EGFRNA) S\\2 Reference Inter vals Decision Points for 18 years and older and average body ma ss: >= 60 Does not exc lude kidney disease. 30 - 59 Suggests mod erate chronic kidney disease and indicates the need for furthe r investigation including asses sment of proteinuria and cardiovascular factors. < 30 Usually indicates a nee d for referral for assessment and management of c hronic kidney failure. [facility]00 Test Item Value Reference Range Interpretation Comments pH (ABG) (test code = BGPH) 7.322 7.350-7.450 L pCO2(T) (test code = 67.8 mm Hg 35.0-45.0 HH BGPCO2(T)) pO2(T) (test code = 89.6 mm Hg 80.0-100.0 BGPO2(T)) sO2 (test code = BGSO2) 96.8 % 90.0-99.0 Na+ (test code = BGCNA+) 138.3 mmol/l 135.0-148.0 K+ (test code = BGCK+) 4.22 mmol/l 3.50-4.50 Ca2+ (test code = BGCCA2+) 1.190 mmol/l 1.120-1.320 Cl- (test code = BGCCL-) 94 mmol/l 98-107 L tHb (test code = BGCTHB) 10.6 gm/dl 11.5-17.4 L Hct (test code = BGHCT) 40.5 35.0-50.0 O2Hb (test code = PNUT2MV) 92.6 % 95.0-99.0 L COHb (test code = BGFCOHB) 3.80 % 0.5-2.5 H MetHB (test code = BGMETHB) <1.30 % 0.4-1.5 N Gluc (test code = BGCGLU) 130.0 mg/dl 60.0-109.9 H Lac (test code = BGCLAC) 2.10 mmol/l 0.44-2.22 Barometric Pressure (test 756.8 mm Hg 450.0-1000.0 code = BGBARO) BE(act) (test code = 7 mmol/l BGBEACT) HCO3 (test code = BGHCO3) 29 meq/L 22-26 H ctCO2(B) (test code = 32 mmol/l BGCTCO2(B)) FIO2 (fO2(I) (test code = 0.38 % BGFIO2) Drawn By (test code = LAUREN MINAYA BGDRAWNBLuiza) Collection Date (test code 01/25/2020 = BGDTCOL) Collection Time (test code 23:40 = BGCTM) Sample Site (test code = L Radial BGSAMPLESITE) Sample Type (test code = Arterial BGSAMPLETYPE) Allens Test (test code = Acceptable BGALLEN) Notified By (test code = LAUREN MINAYA) Notified Whom (test code = DR. ROB BGNOTIFIEDWHOMAR) Date Notified (test code = 01/25/2020 BGDTNOTIFIED) Time Notified (test code = 23:45 BGTMNOTIFIED) O2 Device (test code = Nasal Cannula [id number]) Instrument ID (test code = 28022 BGINSTRID) Reported By (test code = LAUREN MINAYAREPORTEDHOLLY) [facility] WITH AUTO [id number] 23:49:00 Test Item Value Reference Range Interpretation Comments WBC (test code = 13.00 4.80-10.80 H WBC) 10\\S\\3/ul RBC (test code = 3.87 10\\S\\6/ul 4.20-5.40 L RBC) Hemoglobin (test 11.5 gm/dl 12.0-14.0 L code = HGB) Hematocrit (test 37.2 % 37.0-47.0 code = HCT) MCV (test code = 96.1 fL 81.0-99.0 MCV) MCH (test code = 29.7 pg 27.0-31.0 MCH) MCHC (test code = 30.9 gm/dl 33.0-37.0 L MCHC) RDW (test code = 16.5 % 11.5-14.5 H RDWVC) Platelet (test code 279 10\\S\\3/ul 130-400 = PLT) MPV (test code = 9.6 fL 7.4-10.4 A "NOT MEASUR ED" MPV) RESULTS ARE DIS PLAYED WHEN THE INSTRU MENT HAS A SUPPRESSE D OR UNREPORTABLE RE SULT. THIS WILL MOST OFTEN HAPPEN WITH THE MPV WHEN THERE IS A N ABNORMAL PLATEL ET DISTRIBUTION DU E TO A CRITICAL LOW VA LUE OR PLATELET CLUMPI NG. THE RDW MAY BE SUPPRESSED IF T HERE ARE MULTIPLE PE AKS PRESENT ON THE RBC HISTOGRAM. IN T HIS CASE, A MANUAL REVIEW OF THE SLIDE WI LL BE PERFORMED, AND RBC MORPHOLOGY WILL BE NOTED ON THE RE PORT. NE% (test code = 71.7 % 42.0-75.0 NE) LY% (test code = 19.1 % 13.0-42.0 LY) MO% (test code = 6.2 % 4.0-14.0 MO) EO% (test code = 1.8 % 1.0-5.0 EO) BA% (test code = 0.5 % 0.0-3.0 BA) IG% (test code = 0.7 % 0.0-0.4 H IG%) [facility], ROCK [id number] 07:53:00 Specimen: BloodCollected: 01/04/2020 15:04 Status: Final Last Updated: 01/10/2020 07:52 Culture Result (Final) (Final) No [facility], [id number] 07:53:00To start 15mins after 1st cultureSpecimen: BloodCollected: 01/04/2020 15:04 Status: Final Last Updated: 01/10/2020 07:52 (1) To [id number] after 1st culture Culture Result (Final) (Final) No Growth After 5 DaysA[facility], ANAEROBE [id number] 07:53:00Specimen: BloodCollected: 01/04/2020 15:04 Status: Final Last Updated: 01/10/2020 07:52 Culture Result (Final) (Final) No Growth [facility], [id number] 07:53:00Specimen: BloodCollected: 01/04/2020 15:04 Status: Final Last Updated: 01/10/2020 07:52 Culture Result (Final) (Final) No Growth After 5 [facility], [id number] 09:23:00MUST order Gram Stain separately WOUNDSSpecimen: WoundCollected: 01/04/2020 14:25 Status: Final Last Updated: 01/06/2020 17:37 (1) MUST order Gram Stain separately WOUNDS Culture Result (Final) (Final) Many Gram Negative Bacilli Isolate (Final) (Final) Serratia marcescens Amikacin <=2 S Cefazolin >=64 R Cefepime <=1 S Cefoxitin RCeftazidime <=1 S Ceftriaxone <=1 S Ciprofloxacin <=0.25 S Gentamicin <=1 S Levofloxacin<=0.12 S Meropenem <=0.25 S Tobramycin <=1 S Trimeth/Sulfa <=20 [facility] GRAM [id number] 07:22:00Must order gram stain separately with aerobic cult Specimen: WoundCollected: 01/04/2020 14:25 Status: Final Last Updated: 01/06/2020 07:22 (1) Must order gram stain separately with aerobic cult Gram Stain (Final) (Final) Many RBC's Moderate Gram Negative BacilliFroedtert West Bend HospitalXR LEG (TIB/FIB) 2 [id number] 15:32:55Right tibia/fibula radiographs-4 viewsHistory: Pain.Comparison: right ankle radiographs 11/26/2019.Findings/Impression:No evidence of acute fracture or malalignment. Unchanged deformity of the medialandlateral malleoli, likely sequela of remote trauma.Soft tissue edema in the lower leg. There is a soft tissue defect withassociated soft tissue gas in the medial aspect of the lower leg/ankle, whichmay be infectious, suggest clinical correlation for ulcer. There is noradiographic evidence of osteomyelitis. There are numerous nonspecific softtissue calcifications, as seen on prior ankle radiographs.This final report was electronically signed by Dr John José MD 01/04/2020 3:26PMDictated By: YAMILET JOSÉRDate: 01/04/2020 15:26[facility] [id number] 15:30:00 Test Item Value Reference Range Interpretation Comments Glucose (test code 185 mg/dl 75-110 H = GLU) BUN (test code = 9.0 mg/dl 6.0-17.0 BUN) Creatinine (test 0.8 mg/dl 0.4-1.2 code = CREA) Sodium (test code = 137 mmol/l 137-145 NA) Potassium (test 4.0 mmol/l 3.5-5.0 code = K) Chloride (test code 102 mmol/l 98-107 = CL) CO2 (test code = 29 mmol/l 22-30 CO2) Calcium (test code 8.6 mg/dl 8.4-10.2 = CALC) T Protein (test 7.3 gm/dl 5.1-8.7 code = TP) Albumin (test code 2.8 gm/dl 3.5-4.6 L = ALB) A/G Ratio (test 0.6 % 1.1-2.2 L code = AGRAT) AST (SGOT) (test 12 U/L 11-36 code = AST) ALT (SGPT) (test 27 U/L 11-40 code = ALT) Alkaline Phos (test 90 U/L 47-114 code = ALKP) Total Bilirubin 0.2 mg/dl 0.2-1.2 (test code = TBIL) Globulin (test code 4.5 gm/dl 2.3-3.5 H = GLOBU) Calcium, Corrected 9.6 mg/dl 8.4-10.2 Various f ormulas exist (test code = for corrected s trinity CALCCORR) calcium results , each yielding differ ent values. This co rrected result was base d on the formula: Co rrected Calcium = Serum Calcium + [0.8 * ( 4 - SerumAlbumin)] EGFR if >60 Trinidadian (test code mL/min/1.73m\\ = EGFRAA) S\\2 EGFR if Non- >60 Estimate d Glomerular Trin[place] (test code mL/min/1.73m\\ Filtrat ion Rate (eGFR) = EGFRNA) S\\2 Reference Inter vals Decision Points for 18 years and older and average body ma ss: >= 60 Does not exc lude kidney disease. 30 - 59 Suggests mod erate chronic kidney disease and indicates t he need for further investigation including asses sment of proteinuria and cardiovascular factors. < 30 U sually indicates a nee d for referral for assessment and management of c hronic kidney failure. [facility] HospitalURINALYSIS WITH [id number] 15:28:00 Test Item Value Reference Range Interpretation Comments Color (test code = UCOLR) Yellow Clarity (test code = UCLAR) Clear Glucose (test code = UGLUC) NEGATIVE NEGATIVE N Bilirubin (test code = UBILI) NEGATIVE NEGATIVE N Ketones (test code = UKET) NEGATIVE NEGATIVE N Specific [place] (test code = >=1.030 1.005-1.030 A USPGR) Blood (test code = UBLD) Trace-Intact NEGATIVE A PH (test code = UPH) 5.0 4.5-8.0 A Protein (test code = UPROT) NEGATIVE NEGATIVE N Urobilinogen (test code = U 0.2 >0.2 N UROB) Nitrite (test code = UNITR) NEGATIVE NEGATIVE N Leukocyte Esterase (test code = NEGATIVE NEGATIVE N ULEUK) WBC (test code = WBCUR) 0-5 0-5 N RBC (test code = RBCUR) 0-5 0-5 N Epithial Cells (test code = U 0-10 0-10 N EPI) Bacteria (test code = UBACT) Trace None Seen,Trace N [facility] HospitalCB WITH AUTO [id number] 15:07:00 Test Item Value Reference Range Interpretation Comments WBC (test code = 8.08 10\\S\\3/ul 4.80-10.80 WBC) RBC (test code = 4.02 10\\S\\6/ul 4.20-5.40 L RBC) Hemoglobin (test 11.8 gm/dl 12.0-14.0 L code = HGB) Hematocrit (test 37.2 % 37.0-47.0 code = HCT) MCV (test code = 92.5 fL 81.0-99.0 MCV) MCH (test code = 29.4 pg 27.0-31.0 MCH) MCHC (test code = 31.7 gm/dl 33.0-37.0 L MCHC) RDW (test code = 15.8 % 11.5-14.5 H RDWVC) Platelet (test code 286 10\\S\\3/ul 130-400 = PLT) MPV (test code = 10.0 fL 7.4-10.4 A "NOT MEASUR ED" MPV) RESULTS ARE DIS PLAYED WHEN THE INSTRU MENT HAS A SUPPRESSE D OR UNREPORTABLE RE SULT. THIS WILL MOST OFTEN HAPPEN WITH THE MPV WHEN THERE IS A N ABNORMAL PLATEL ET DISTRIBUTION DU E TO A CRITICAL LOW VA LUE OR PLATELET CLUMPI NG. THE RDW MAY BE SUPPRESSED IF T HERE ARE MULTIPLE PE AKS PRESENT ON THE RBC HISTOGRAM. IN T HIS CASE, A MANUAL REVIEW OF THE SLIDE WI LL BE PERFORMED, AND RBC MORPHOLOGY WILL BE NOTED ON THE RE PORT. NE% (test code = 68.0 % 42.0-75.0 NE) LY% (test code = 22.6 % 13.0-42.0 LY) MO% (test code = 6.2 % 4.0-14.0 MO) EO% (test code = 2.4 % 1.0-5.0 EO) BA% (test code = 0.4 % 0.0-3.0 BA) IG% (test code = 0.4 % 0.0-0.4 IG%) [facility]XR ANKLE COMP MIN 3 [id number] 16:18:18 Evaluate for gasRight ankle 3 views:History: Ankle woundAP, oblique and lateral views were obtained. Comparison is made to 09/15/17.No fracture or dislocation is identified. No joint effusion is noted. Mildcortical thickening of the posterior distal tibial diaphysis is again noted.Again noted are multiple nonspecific soft tissue calcifications in the leg.Impression: No acute bony or joint abnormality or significant change from09/15/17.This final report was electronically signed by Dr Adrian Schreiber MD 11/26/20194:11 PMDictated By: ADRIAN SCHREIBERDate: 11/26/2019 16:11[facility]ENTERBXR CHEST AP/PA 1 [id number] 16:07:03Exam: AP portable chestDATE OF EXAM: 11/26/2019 3:33 PMINDICATION: DyspneaThe study is limited by underexposure and portable technique as well as patientbody habitus. Comparison is made to 11/15/18. The lungs appear clear. Cardiacsize is at upper limits of normal. The bony thorax shows no significantabnormality.Impression:No active cardiopulmonary disease. Limited study as noted.This final report was el ectronically signed by Dr Adrian Schreiber MD 11/26/20194:00 PMDictated By: Pamela SCHREIBER: 11/26/2019 16:00[facility]ENTERBTROPONIN-I Quantitative 2019-11-26 15:37:00 Test Item Value Reference Range Interpretation Comments Troponin-I (test <0.015 ng/ml 0.000-0.034 N The 99[address] Pe rcentile URL code = TROP) is 0.045 ng/mL for the [employer] [place] T roponin I. The Joint Europ jimi Society of Cardiology/[employer] [facility] [employer] of Card iology (ESC/ACC) and t [facility] of Clinical [facility] Standards of La boratory Practices (NACB ) recommends that the diagnosis of AM I includes the presence of clinical history suggest glo of Acute Coronary Syndrome (ACS) and a max imum concentration o f cardiac troponin exceed ing the 99th percentile of a normal referenc e population [upp er reference limit (URL)] on at least one oc casion during the firs t 24 hours after the clini jack event. [facility] HospitalPRO-BNP(B-Type Natriuretic Peptide)2019-11-26 15:37:00 Test Item Value Reference Range Interpretation Comments Pro-BNP(B-Peptide) (test code = 20 pg/ml 0-125 PROBNP) [facility] HospitalCMP2020-02-11 15:37:00 Test Item Value Reference Range Interpretation Comments Glucose (test code 148 mg/dl 75-110 H = GLU) BUN (test code = 20.0 mg/dl 6.0-17.0 H BUN) Creatinine (test 0.7 mg/dl 0.4-1.2 code = CREA) Sodium (test code = 135 mmol/l 137-145 L NA) Potassium (test 3.8 mmol/l 3.5-5.0 code = K) Chloride (test code 99 mmol/l 98-107 = CL) CO2 (test code = 32 mmol/l 22-30 H CO2) Calcium (test code 8.8 mg/dl 8.4-10.2 = CALC) T Protein (test 7.3 gm/dl 5.1-8.7 code = TP) Albumin (test code 2.9 gm/dl 3.5-4.6 L = ALB) A/G Ratio (test 0.7 % 1.1-2.2 L code = AGRAT) AST (SGOT) (test 14 U/L 11-36 code = AST) ALT (SGPT) (test 30 U/L 11-40 code = ALT) Alkaline Phos (test 85 U/L 47-114 code = ALKP) Total Bilirubin 0.3 mg/dl 0.2-1.2 (test code = TBIL) Globulin (test code 4.4 gm/dl 2.3-3.5 H = GLOBU) Calcium, Corrected 9.7 mg/dl 8.4-10.2 Various f ormulas exist (test code = for corrected s trinity CALCCORR) calcium results , each yielding differ ent values. This co rrected result was base d on the formula: Co rrected Calcium = Serum Calcium + [0.8 * ( 4 - SerumAlbumin)] EGFR if >60 Trinidadian (test code mL/min/1.73m\\ = EGFRAA) S\\2 EGFR if Non- >60 Estimate d Glomerular Trinidadian (test code mL/min/1.73m\\ Filtrat ion Rate (eGFR) = EGFRNA) S\\2 Reference Inter vals Decision Points for 18 years and older and average body ma ss: >= 60 Does not exc lude kidney disease. 30 - 59 Suggests mod erate chronic kidney disease and indicates t he need for further investigation including asses sment of proteinuria and cardiovascular factors. < 30 U sually indicates a nee d for referral for assessment and management of c hronic kidney failure. [facility] [place]-REACTIVE [id number] 15:26:00 Test Item Value Reference Range Interpretation Comments C REACTIVE PROTEIN (test code = 27.00 mg/dl 0.00-3.00 H CRP) [facility] HospitalPREGNANCY TEST, Serum [id number] 15:24:00 Test Item Value Reference Range Interpretation Comments (Serum) (test code = Negative Negative N PREGS) [facility] WITH AUTO [id number] 15:00:00 Test Item Value Reference Range Interpretation Comments WBC (test code = 10.06 4.80-10.80 WBC) 10\\S\\3/ul RBC (test code = 3.93 10\\S\\6/ul 4.20-5.40 L RBC) Hemoglobin (test 11.5 gm/dl 12.0-14.0 L code = HGB) Hematocrit (test 36.2 % 37.0-47.0 L code = HCT) MCV (test code = 92.1 fL 81.0-99.0 MCV) MCH (test code = 29.3 pg 27.0-31.0 MCH) MCHC (test code = 31.8 gm/dl 33.0-37.0 L MCHC) RDW (test code = 15.2 % 11.5-14.5 H RDWVC) Platelet (test code 267 10\\S\\3/ul 130-400 = PLT) MPV (test code = 9.8 fL 7.4-10.4 A "NOT MEASUR ED" MPV) RESULTS ARE DIS PLAYED WHEN THE INSTRU MENT HAS A SUPPRESSE D OR UNREPORTABLE RE SULT. THIS WILL MOST OFTEN HAPPEN WITH THE MPV WHEN THERE IS A N ABNORMAL PLATEL ET DISTRIBUTION DU E TO A CRITICAL LOW VA LUE OR PLATELET CLUMPI NG. THE RDW MAY BE SUPPRESSED IF T HERE ARE MULTIPLE PE AKS PRESENT ON THE RBC HISTOGRAM. IN T HIS CASE, A MANUAL REVIEW OF THE SLIDE WI LL BE PERFORMED, AND RBC MORPHOLOGY WILL BE NOTED ON THE RE PORT. NE% (test code = 69.4 % 42.0-75.0 NE) LY% (test code = 22.7 % 13.0-42.0 LY) MO% (test code = 4.9 % 4.0-14.0 MO) EO% (test code = 2.4 % 1.0-5.0 EO) BA% (test code = 0.3 % 0.0-3.0 BA) IG% (test code = 0.3 % 0.0-0.4 IG%) [facility]XR CHEST 2 PA [id number] 17:10:47 Procedure: XR CHEST 2 PA LATERALOrder Date: 11/15/2018 3:11 PMOrdering Provider: DR TIM BYRNESAClinical Indication: [id number]: DyspneaComparison: 06/08/2018Findings:Cardiac size is normal.Pulmonary vasculature is normal.Mediastinal contour is normal.Aortic contour is normal.There is no consolidation or effusion.There is no mass or pneumothorax.There is no evidence of active tuberculosis.There is no skeletal abnormality.Impression: Negative PA and lateral views of the chest.This final report was electronically signed by Dr Bg Cardenas MD 11/15/20185:04 PMDictated By: BG CARDENAS.Date: 11/15/2018 17:04[facility]XR [facility] 2 PA [id number] 13:35:48PA and lateral chest:Exam Date: 06/08/2018Clinical Indication: COPDThe lungs are clear. Cardiac size is at upper limits of normal. There is novascular congestion or pleural effusion. There are no significant bonyabnormalities.Impression: No acute cardiopulmonary abnormality.This final report was electronically signed by Dr Adrian Schreiber MD 06/08/20181:29 PMDictated By: ADRIAN SCHREIBERDate: 06/08/2018 13:35[facility], [id number] 10:29:00MUST order Gram Stain separately WOUNDSSpecimen: Leg RightCollected: 09/15/2017 17:54 Status: Final Last Updated: 09/18/2017 01:39 (1) MUSTorder Gram Stain separately WOUNDS Culture Result (Final) (Final) Many Gram Negative Bacilli Isolate(Final) (Final) Proteus mirabilis Amoxicillin/clavu <=2 S Ampicillin <=2 S Aztreonam <=1 S Cefazolin <=4 S Cefepime <=1 S Ceftriaxone <=1 S Ciprofloxacin <=0.25 S Gentamicin <=1S Levofloxacin <=0.12 S Meropenem <=0.25 S Tetracycline >=16 R Trimeth/Sulfa <=20 [facility] CULTURE, [id number] 07:23:00Specimen: Urine SpecimensCollected: 09/15/2017 17:55 Status: Final Last Updated: 09/18/2017 07:23 Culture Result (Final) (Final) No Growth After 48 HoursFroedtert [facility] HospitalGRAM STAIN 2017-09-17 13:27:00Must order gram stain separately with aerobic cultSpecimen: Leg RightCollected: 09/15/2017 17:54 Status: Final Last Updated: 09/17/2017 13:27 (1) Mustorder gram stain separately with aerobic cult Gram Stain (Final) (Final) No Cells Seen Rare Gram Negative BacilliFroedtert West Bend HospitalXR ANKLE [id number] 18:22:06EXAM: XR ANKLE 2VWS, RIGHTDATE: 09/15/2017 4:52 PMINDICATION: r/o osteomyelitisCOMPARISON: NoneFINDINGS:BONES:No acute fractures.Periosteal reaction along the superficial aspect of the medial malleolus.No discrete osseous erosion.JOINTS:The joints are maintained and without erosive changes.No malalignment.SOFT TISSUES:Soft tissue defect along the medial aspect of the distal leg.Regional soft tissue swelling.Numerous nonspecific soft tissue calcifications.IMPRESSION:Periosteal reaction of the superficial aspect of the medial malleolus, worrisomefor underlying osteomyelitis given the provided history.This final report was electronically signed by Dr Juan Mckinnon DO 09/15/2017 6:15PMDictated By: Tamir MCKINNONte: 09/15/2017 18:22[facility] [id number] 18:11:00 Test Item Value Reference Range Interpretation Comments Glucose (test code 92 mg/dl 75-110 = GLU) BUN (test code = 11.0 mg/dl 6.0-17.0 BUN) Creatinine (test 0.8 mg/dl 0.4-1.2 code = CREA) Sodium (test code = 140 mmol/l 137-145 NA) Potassium (test 4.5 mmol/l 3.5-5.0 code = K) Chloride (test code 102 mmol/l 98-107 = CL) CO2 (test code = 36 mmol/l 22-30 H CO2) Anion Gap (test 2 code = GAP) Calcium (test code 8.8 mg/dl 8.4-10.2 = CALC) T Protein (test 6.9 gm/dl 5.1-8.7 code = TP) Albumin (test code 3.4 gm/dl 3.5-4.6 L = ALB) A/G Ratio (test 1.0 % 1.1-2.2 L code = AGRAT) AST (SGOT) (test 43 U/L 11-36 H code = AST) ALT (SGPT) (test 20 U/L 11-40 code = ALT) Alkaline Phos (test 72 U/L 47-114 code = ALKP) Total Bilirubin 0.3 mg/dl 0.2-1.2 (test code = TBIL) Globulin (test code 3.5 gm/dl 2.3-3.5 = GLOBU) Calcium, Corrected 9.3 mg/dl 8.4-10.2 Various f ormulas exist (test code = for corrected s trinity CALCCORR) calcium results , each yielding differ ent values. This co rrected result was base d on the formula: Co rrected Calcium = Serum Calcium + [0.8 * ( 4 - SerumAlbumin)] EGFR if >60 Trin[place] (test code mL/min/1.73m\\ = EGFRAA) S\\2 EGFR if Non- >60 Estimate d Glomerular Trin[place] (test code mL/min/1.73m\\ Filtrat ion Rate (eGFR) = EGFRNA) S\\2 Reference Inter vals Decision Points for 18 years and older and average body ma ss: >= 60 Does not exc lude kidney disease. 30 - 59 Suggests mod erate chronic kidney disease and indicates t he need for further investigation including asses sment of proteinuria and cardiovascular factors. < 30 U sually indicates a nee d for referral for assessment and management of c hronic kidney failure. [facility] HospitalURINALYSIS WITH [id number] 18:06:00 Test Item Value Reference Range Interpretation Comments Color (test code = UCOLR) Yellow Clarity (test code = UCLAR) CLEAR Glucose (test code = UGLUC) NEGATIVE NEGATIVE N Bilirubin (test code = UBILI) NEGATIVE NEGATIVE N Ketones (test code = UKET) NEGATIVE NEGATIVE N Specific [place] (test code = 1.025 1.005-1.030 A USPGR) Blood (test code = UBLD) NEGATIVE NEGATIVE N PH (test code = UPH) 6.0 4.5-8.0 A Protein (test code = UPROT) NEGATIVE NEGATIVE N Urobilinogen (test code = U UROB) 0.2 >0.2 N Nitrite (test code = UNITR) NEGATIVE NEGATIVE N Leukocyte Esterase (test code = NEGATIVE NEGATIVE N ULEUK) WBC (test code = WBCUR) 0-2 0-5 A RBC (test code = RBCUR) None Seen 0-5 A Epithial Cells (test code = U EPI) 5-10 0-10 A Mucous (test code = UMUC) Trace None Seen A Bacteria (test code = UBACT) Trace None Seen,Trace N [facility] HospitalPREGNANCY TEST, Urine [id number] 18:02:00 Test Item Value Reference Range Interpretation Comments (Urine) (test code = Negative PREGU) If a specimen is collected by a nurse, then you MUST fill out the Collected and Collected By rankin [facility] HospitalCB WITH AUTO [id number] 17:55:00 Test Item Value Reference Range Interpretation Comments WBC (test code = 11.17 4.80-10.80 H WBC) 10\\S\\3/ul RBC (test code = 4.16 10\\S\\6/ul 4.20-5.40 L RBC) Hemoglobin (test 11.3 gm/dl 12.0-14.0 L code = HGB) Hematocrit (test 36.2 % 37.0-47.0 L code = HCT) MCV (test code = 87.0 fL 81.0-99.0 MCV) MCH (test code = 27.2 pg 27.0-31.0 MCH) MCHC (test code = 31.2 gm/dl 33.0-37.0 L MCHC) RDW (test code = 14.4 % 11.5-14.5 RDWVC) Platelet (test code 287 10\\S\\3/ul 130-400 = PLT) MPV (test code = 9.7 fL 7.4-10.4 A "NOT MEASUR ED" MPV) RESULTS ARE DIS PLAYED WHEN THE INSTRU MENT HAS A SUPPRESSE D OR UNREPORTABLE RE SULT. THIS WILL MOST OFTEN HAPPEN WITH THE MPV WHEN THERE IS A N ABNORMAL PLATEL ET DISTRIBUTION DU E TO A CRITICAL LOW VA LUE OR PLATELET CLUMPI NG. THE RDW MAY BE SUPPRESSED IF T HERE ARE MULTIPLE PE AKS PRESENT ON THE RBC HISTOGRAM. IN T HIS CASE, A MANUAL REVIEW OF THE SLIDE WI LL BE PERFORMED, AND RBC MORPHOLOGY WILL BE NOTED ON THE RE PORT. NE% (test code = 64.3 % 42.0-75.0 NE) LY% (test code = 25.5 % 13.0-42.0 LY) MO% (test code = 5.2 % 4.0-14.0 MO) EO% (test code = 4.2 % 1.0-3.0 H EO) BA% (test code = 0.4 % 1.0-3.0 L BA) IG% (test code = 0.4 % 0.0-0.4 IG%) [facility] Notes Date/Time Note Provider Source 2020-02-27 ALAN Ruggiero - 14:29:00-00:00 Discharge Instructions 2 Memoria l (LUF/JOHNSON/SA) Discharge Diagnosis liu cath Important Information Consult your physician or re turn to the Emergency Department immediately if worse, if not better as expected, or if any problems arise. Follow Up Care Yes Important Information Please understand that you have received care on ly on an emergency basis. If your condition does not improve, you should call your personal physician for follow-up care. If you do not have a physician, you may call e referred physician listed. If you have questions about your care or these discharge instructions, you may call the Emergency Department. Please take your discharge paperwork with you t o any follow-up appointments. Follow-Up With: Primary Care Physician Activity Level As tolerated, unrestricted Diet Regular 2020-01-31 ALAN Ruggiero - 15:55:00-00:00 Discharge Instructions [facility] (LUF/JOHNSON/SA) IV Removed Date 01/31/2020 Discharge Diagnosis Acute respiratory failure with hypoxia, hypercap bello Date/Time of Follow Up Appt #1 02/07/2020 08:30 Physician Name for Follow Up Appt #1 Follow up with PCP (Katie Fofana) on February 07, 2020 at 8:30 am for CBC and CMP [phone] Date/Time of Follow Up Appt #2 02/18/2020 14:00 Physician Name for Follow Up Appt #[address] Antunez (training and development rep) on February 18, 2020 at 2:00 pm [phone] Physician Name, Date/Time For Follow Up Appt #[address] Ortiz (geologist petroleum) in 1-2 weeks [phone] Physician Name, Date/Time For Follow Up Appt #4 Per Shannan Lundberg with [facility], criteria not met for COVID-19 testing. Please call the hotline at [phone] (M-F 8 am to 4 pm) or the 24 hr hotline at [phone] if you develop high fevers, in creasing shortness of breath, or worsening cough . Discharge Blood Sugar 119 Discharge Weight 252 kg Activity Level As tolerated, unrestricted Medications Continue Present Medications Prescriptions Called To Pharmacy Take all medications as listed on your Discharge Medication List as directed DO NOT STOP taking your medicine(s) until directed by your doctor. Diet Low Sodium - 2 gm per day Other Discharge Instructions Patient education provided Follow Up Care Yes Scheduled Appointment Readmission Risk (LACE Score) 10 Written Discharge Plan given to the Debo ent at the time of discharge contains: Reason for hospitalization Discharge medications includ ing what medications to take, how to take them, and how to obtain the medication. Patient / family / caregiver given instructions on what to do if their condition changes. Coordination and planning fo r follow-up appointments that the patient can keep. Pneumonia Vaccine Does Not Meet Criteria Influenza Vaccine NOT Given, State Reason(s) Bel ow: Previously immunized during this flu season Discharge Instructions 2 Wound / Incision Care Dressings changed on 01/31/2020. Other Home Health Provider & Phone Number [facility] [phone] DME / Medical Supplies Name & Phone Number Dorene [phone] Core Measure / Get with the Guidelines (AMI/HF) Review Discharge Medications with patient for ne xt dose times Aspirin (AMI) NAJMA Inhibitor (AMI/HF) Discharge Education Copy of Discharge Medication List Discussed New / Changed Medications Discharge Medication Education Take all medications as listed on your Discharge Medication List as directed Remember: Get permission fro m your doctor before taking any additional medications like vitamins, herbal medications, sexual dysfunction pills, alcoholic beverages or any medications you get at your pharmacy without a prescription Carry a complete, up-to-date list of your home medications with you at all times Your medication list should be updated when medications are discontinued, doses are changed or new medications are added. A copy of your completed discharge Medication List is attached. Notify Physician if You Experience: Worsening of condition Personal Belongings Returned To Patient/Family N/A Valuables Returned To Patient/Family N/A Pre-Admission Medications Returned To Patient/Fa danny N/A Patient/Significant Other Education Acknowledgem ent I hereby acknowledge jace stewart the explanation of the attached instructions. I was able to "teach back" my health information and education to my nurse and I understand what I was taught as indicated by my signature below. Discharge Instructions Explained To Patient PATIENT TIPS A Readmission Is When I am admitted to the [facility] after being discharged for the same diagnosis (condition). I Can Help Prevent a Readmission by Understandin g My Discharge Instructions Know what I need to do before and after I leave the hospital Ask questions early and often Ask when I don't understand my follow-up care in structions Arrange for the support and follow-up care I lilibeth l need post discharge I Can Help Prevent a Readmission by Knowing My D iagnosis (Condition) Understand my main medical problem or condition Know the potential complications and who to call if I need assistance Learn how my condition impacts me and my family I Can Help Prevent a Readmission By Following Up With My Care Be sure to communicate with my primary care prov ider Ask my healthcare team to he lp me find a primary care provider if I don't have one Schedule and go to all my follow-up appointments Keep a medical journal and bring it to all my ap pointments Tell my primary care susanai aurelio and other providers that I was admitted to the hospital Ask my provider if they have received all of my test results and medical reports Ask questions at the follow- up visit about what I need to do and why I need to do it Understand and follow my post-discharge activity and dietary plans I Can Help Prevent a Readmission By Protecting M yself From Infections Avoid people who are sick Wash my hands often Learn how my condition impacts me and my family I Can Help Prevent a Readmission by Managing My Medications Understand my post-discharge medications and if they are different than before admission Keep a current list of my me dications, including wbhy-[id number] and herbal medications (note any allergies) Bring my current medication list to appointments and review the list with my doctors Update my medication list when my medications ch katlin Take my medications as directed Understand what medications to take and when, and why it is important to take my medications Know the reason for taking my medication and how they help with my condition Let my healthcare providers know if I am having problems taking my medications 2020-01-04 [facility] - 18:53:00-:00 Discharge Instructions 2 Memoria l (LUF/JOHNSON/SA) Discharge Diagnosis Cellulitis Important Information Consult your physician or re turn to the Emergency Department immediately if worse, if not better as expected, or if any problems arise. Follow Up Care Yes Important Information Please understand that you have received care on ly on an emergency basis. If your condition does not improve, you should call your personal physician for follow-up care. If you do not have a physician, you may call th e referred physician listed. If you have questions about your care or these discharge instructions, you may call the Emergency Department. Please take your discharge paperwork with you t o any follow-up appointments. Follow Up Care Patient To Schedule Follow-Up With: Primary Care Physician Activity Level As tolerated, unrestricted Diet Regular Prescriptions Given Via: Electronically sent to patient's preferred pharm acy. Patient Teaching Patient education provided Antimicrobial Stewardship Patient Education Disease Process Dressing Change Pain Control Wound Care 2019-11-26 [facility] - 17:30:00-00:00 Discharge Instructions 2 Memoria l (LUF/JOHNSON/SA) Discharge Diagnosis Chronic Wounds Important Information Consult your physician or re turn to the Emergency Department immediately if worse, if not better as expected, or if any problems arise. Please understand that you have received care on ly on an emergency basis. If your condition does not improve, you should call your personal physician for follow-up care. If you do not have a physician, you may call th e referred physician listed. If you have questions about your care or these discharge instructions, you may call the Emergency Department. Please take your discharge paperwork with you t o any follow-up appointments. Follow-Up With: Primary Care Physician Follow-Up Notes: follow up with wound care AP for further evaluation and treatment, if symptoms persist or worsen, please return to the ER Activity Level As tolerated, unrestricted Diet Regular Prescriptions Given Via: Printed and given to patient/caregiver. Patient Teaching Patient education provided Activities Dietary Resources 2017-09-15 ALAN Ruggiero - 19:30:00-00:00 Discharge Instructions 2 Memoria l (LUF/JOHNSON/SA) Discharge Diagnosis cellulitis / skin yeast infection Important Information Consult your physician or re turn to the Emergency Department immediately if worse, if not better as expected, or if any problems arise. Follow Up Care Yes Important Information Please understand that you have received care on ly on an emergency basis. If your condition does not i mprove, you should call your personal physician for follow-up care. If you do not have a physician, you may call the referred physician listed. If you have questions about your care or these discharge instructions, you may call the Emergency Department. Please take your discharge paperwork with you to any follow-up appointments. Follow-Up With: Primary Care Physician Follow-Up Notes: pt told to follow up for wound care - given clin ics in surrounding area Activity Level As tolerated, unrestricted Diet Regular Prescriptions Given Via: Printed and given to patient/caregiver. Patient Teaching Patient education provided
[2023-03-14] MEDS ORDERED: CEFTRIAXONE 1000 MG/VIAL ONE (12:19)
[2023-03-14 12:20] LABS: Absolute Lymphocytes (CBC) 0.9 K/uL (0.7-4.9); Hematocrit 36.6 % (36.0-45.0); Lymphocytes % 5.4 % (15.3-44.8); MCV 88.5 fL (80-100); MPV 7.9 fL (7.6-11.3); RBC Red Blood Cell Count 4.14 M/uL (3.86-4.86)
[2023-03-14] MEDS ORDERED: NA CHLORIDE 0.9% 500 ML ONE (12:20)
[2023-03-14] MEDS ORDERED: IPRATROPIUM BROM 0.5MG/2.5ML ONE ×2 (12:20→19:42)
[2023-03-14] MEDS ORDERED: AZITHROMYCIN 500 MG INJ IVPB ONE (12:20)
[2023-03-14] MEDS ORDERED: ALBUTEROL 2.5 MG/3 ML NEB SOL ONE ×2 (12:20→19:42)
[2023-03-14] MEDS ORDERED: NA CHLORIDE 0.9% 250 ML ONE (12:20)
[2023-03-14 12:25] LABS: Protime INR 1.05
[2023-03-14 12:39] LABS: Bilirubin Total 0.3 mg/dL (0.2-1.0); Potassium 4.4 mEq/L (3.5-5.1); Protein, Total 7.4 g/dL (6.4-8.2); Troponin High Sensitivity 5.3 pg/mL (<58.9)
--- NOTE | 2023-03-14 12:42 | RAD REPORT ---
[facility] 12:20 pm CLINICAL HISTORY: COPD COMPARISON: Chest Single View dated 03/27/2022; Chest Single View dated 03/26/2022 TECHNIQUE: Portable AP view of the chest. FINDINGS: Decreased inspiratory effort limits evaluation. The lungs show no focal consolidation. Str eaky central opacities could reflect mild edema or viral in fact. No pneumothorax or effusion. The c ardiomediastinal contours are unchanged, with the heart again at the upper limit of normal size. IMPRESSION: Streaky central opacities, could reflect mild edema or viral infection.
[2023-03-14 12:52] LABS: Blood Morphology Comment NOT SEEN (NOT SEEN); Platelet Estimate ADEQ; Platelets, Giant FEW; White Blood Cell Scan OK (OK)
[2023-03-14] MEDS ORDERED: Levofloxacin 750mg IV 750 MG/150 ML BAG IV ONE (12:54)
[2023-03-14 13:18] LABS: Arterial Blood Carboxyhemoglob 1.6 % (0-1.5); Blood Gas Oxyhemoglobin 84.5 % (94-97)
--- NOTE | 2023-03-14 15:27 | ER ---
Nurse's Notes [facility] Name: Courtney Sawyer Age: 48 yrs Sex: Female : 1975 Arrival Date: 03/14/2023 Time: 11:50 Bed 7 Private MD: Diagnosis: COPD/ Chronic obstructive pulmonary disease with (acute) exacerbation;Morbid (severe) obesity with alveolar hypoventilation Presentation: 03/14 11:51 Chief complaint: Patient states: SOB, lethargic EMS states: Lethargic at breakfast. ll1 Became suddenly more lethargic, AMS, and not responding as usual since 1030. CO2 98, 79% O2 2L NC. EKG sinus tach. 20 G R FA Solu-Medrol 125 MG IV and duoneb in route. Coronavirus screen: Vaccine status: Patient reports receiving the 2nd dose of the covid vaccine. Client denies travel out of the [place] in the last 14 days. difficulty breathing, fatigue, shortness of breath, Client presents with at least one sign or symptom that may indicate coronavirus-19. Standard/surgical mask placed on the client. Ebola Screen: Patient denies travel to an Ebola-affected area in the 21 days before illness onset. Initial Sepsis Screen: Does the patient meet any 2 criteria? No. Patient's initial sepsis screen is negative. Does the patient have a suspected source of infection? Yes: Productive cough/pneumonia. Risk Assessment: Do you want to hurt yourself or someone else? Patient reports no desire to harm self or others. Onset of symptoms was March 14, 2023. 11:51 Method Of Arrival: EMS ll1 11:51 Acuity: LAURI 2 ll1 Triage Assessment: 12:22 General: Appears uncomfortable, ill, Behavior is cooperative, appropriate for age, ll1 listless, quiet. Pain: Denies pain. Respiratory: Reports shortness of breath at rest Airway is patent Trachea midline Respiratory effort is even, labored, Respiratory pattern is symmetrical, tachypnea Onset: The symptoms/episode began/occurred this morning, the patient has moderate shortness of breath. 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 - Social history:: Smoking status: Patient/guardian denies using tobacco. Screenin:22 [facility] ED Fall Risk Assessment (Adult) Confusion or Disorientation Yes (5 pts) ll1 Impaired Gait Yes (1 pt) Mobility Assist Device Used Yes (1 pt) Altered Elimination Yes (1 pt) Score/Fall Risk Level 3 or more points = High Risk Oriented to surroundings, Maintained a safe environment, Educated pt \T\ family on fall prevention, incl call for assistance when getting out of bed, Hourly rounding (assess needs \T\ fall precautionary measures) done, Used ambulatory aids as needed (educated on \T\ assisted with), Offered frequent toileting (1:1 observation), Remained with patient while ambulating. Abuse screen: Denies threats or abuse. Nutritional screening: No deficits noted. Tuberculosis screening: No symptoms or risk factors identified. Assessment: 12:22 Reassessment: No changes from previously documented assessment. Patient and/or family ll1 updated on plan of care and expected duration. Pain level reassessed. 12:41 Reassessment: No changes from previously documented assessment. Patient and/or family ll1 updated on plan of care and expected duration. Pain level reassessed. 13:32 Reassessment: No changes from previously documented assessment. Patient and/or family ll1 updated on plan of care and expected duration. Pain level reassessed. 14:28 Reassessment: No changes from previously documented assessment. Patient and/or family ll1 updated on plan of care and expected duration. Pain level reassessed. 15:01 Reassessment: No changes from previously documented assessment. Patient and/or family ll1 updated on plan of care and expected duration. Pain level reassessed. 15:24 Reassessment: No changes from previously documented assessment. Patient and/or family ll1 updated on plan of care and expected duration. Pain level reassessed. 15:50 Reassessment: No changes from previously documented assessment. Pure wick applied, ll1 diaper still clean. 16:38 Reassessment: No changes from previously documented assessment. Patient and/or family ll1 updated on plan of care and expected duration. Pain level reassessed. 16:50 Reassessment: No changes from previously documented assessment. Patient and/or family ll1 updated on plan of care and expected duration. Pain level reassessed. Vital Signs: 11:51 BP 122 / 72; Pulse 81; Resp 38; Temp 99; Pulse Ox 74% on R/A; ll1 12:23 BP 121 / 86; Pulse 91; Resp 23; Pulse Ox 96% on BiPAP; ll1 14:27 BP 108 / 64; Pulse 85; Resp 18; Pulse Ox 95% on BiPAP; ll1 15:50 BP 120 / 51; Pulse 91; Resp 18; Pulse Ox 97% on BiPAP; ll1 ED Course: 11:51 Patient arrived in ED. ll1 11:52 Juan Alberto Watson MD is Attending Physician. bs3 11:55 Triage completed. ll1 11:57 Aron Browne, RN is Primary Nurse. ll1 11:57 Arm band placed on Patient placed in an exam room, on a stretcher. ll1 11:57 Maintain EMS IV. Dressing intact. Good blood return noted. Site clean \T\ dry. Gauge \T\ ll 1 site: 20 G R FA. 12:22 Chest Single View XRAY In Process Unspecified. EDMS 12:31 BIPAP Sent. ll1 12:44 Blood Culture Adult (2) Sent. hb 15:24 Patient has correct armband on for positive identification. Bed in low position. Call ll1 light in reach. Side rails up X2. Client placed on continuous cardiac and pulse oximetry monitoring. NIBP monitoring applied. monitoring and evaluation advisor on. 15:27 Francisco Angeles is Hospitalizing Provider. bs3 16:50 Repeat lab(s) drawn. by dc, sent to lab. ll1 18:05 bariatric bed ordered, confirmation number [id number]. bd 19:08 Primary Nurse role handed off by Aron Browne, RN jl7 Administered Medications: 12:21 Drug: NS 0.9% IV 500 ml Route: IV; Rate: bolus; Site: right forearm; ll1 12:44 Follow up: Response: No adverse reaction; IV Status: Completed infusion; IV Intake: hb 500ml 12:21 Drug: DuoNeb Nebulize (3:1) (2.5 mg - 0.5 mg) 9 ml Route: Nebulizer; ll1 12:45 Follow up: Response: No adverse reaction hb 12:27 Not Given (Physician Discretion): Rocephin IV 1 grams IV at 1 bolus once; Given slow IV ll1 push per pharmacy instructions 12:31 Drug: AZITHromycin IVPB 500 mg Route: IVPB; Infused Over: 1 hrs; Site: right forearm; ll1 13:53 Follow up: IV Status: Completed infusion; IV Intake: 250ml ll1 13:52 Drug: levofloxacin IVPB 750 mg Volume: 150 ml; Route: IVPB; Infused Over: 90 mins; ll1 Site: right forearm; 15:24 Follow up: Response: No adverse reaction; IV Status: Completed infusion; IV Intake: ll1 150ml Medication: 15:24 VIS not applicable for this client. ll1 Intake: 12:44 IV: 500ml; Total: 500ml. hb 13:53 IV: 250ml; Total: 750ml. ll1 15:24 IV: 150ml; Total: 900ml. ll1 Outcome: 15:27 Decision to Hospitalize by Provider. bs3 21:21 Patient left the ED. mb9 Signatures: Dispatcher [employer] EDMS Lorelei Mckeon Heather, RN RN hb Rosy Andrade RN RN jl7 Aron Browne RN RN ll1 Juan Alberto Watson MD MD bs3 Deanne Camp RN RN mb9 Corrections: (The following items were deleted from the chart) 12:21 11:51 BP 122 / 72; Pulse 81bpm; Pulse Ox 74% RA; Temp 99F; ll1 ll1 12:42 12:22 Reassessment: No changes from previously documented assessment. Patient and/or ll1 family updated on plan of care and expected duration. Pain level reassessed. Patient is alert, oriented x 3, equal unlabored respirations, skin warm/dry/pink. ll1
--- NOTE | 2023-03-14 15:28 | EDPHYS ---
Physician Documentation [facility] Name: Courtney Sawyer Age: 48 yrs Sex: Female : 1975 Arrival Date: 03/14/2023 Time: 11:50 Bed 7 Private MD: ED Physician Juan Alberto Watson HPI: 03/14 11:59 This 48 yrs old Female presents to ER via EMS with complaints of Shortness Of bs3 Breath. 11:59 48-year-old female history of COPD, diabetes, CHF, anemia, depression, anxiety bs3 hypertension hyperlipidemia CKD stage III hypokalemia [facility] for altered mental status and decreased oxygen per EMS she had an elevated end-tidal she was given DuoNebs and steroids and brought in. History limited secondary to medical conditionn. . 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 - Social history:: Smoking status: Patient/guardian denies using tobacco. ROS: 11:59 Constitutional: Negative for fever, chills bs3 11:59 Unable to obtain ROS due to altered mental status, patient distress. Exam: 11:59 Constitutional: Morbidly obese, in moderate respiratory distress and drowsy Head/Face: bs3 Normocephalic, atraumatic. Eyes: Pupils equal round and reactive to light, extra-ocular motions intact. Lids and lashes normal. ENT: mmm, no posterior phyarngeal erythema Neck: Trachea midline, no thyromegaly, no neck stiffness Chest/axilla: Normal chest wall appearance and motion. Nontender with no deformity. No lesions are appreciated. Cardiovascular: Regular rate and rhythm with a normal S1 and S2. symmetric pulses in upper extremities Respiratory: Increased work of breathing, hypoxic, distant breath sounds difficult to auscultate Abdomen/GI: Soft, non-tender, no rebound or guarding Skin: Warm, dry with normal turgor. Normal color with no rashes, no lesions, and no evidence of cellulitis. MS/ Extremity: Pulses equal, no cyanosis. Neurovascular intact. Full, normal range of motion. Neuro: Patient is drowsy she wakes up to painful stimuli no focal deficits Psych: Awake, alert, with orientation to person, place and time. Behavior, mood, and affect are within normal limits. Vital Signs: 11:51 BP 122 / 72; Pulse 81; Resp 38; Temp 99; Pulse Ox 74% on R/A; ll1 12:23 BP 121 / 86; Pulse 91; Resp 23; Pulse Ox 96% on BiPAP; ll1 14:27 BP 108 / 64; Pulse 85; Resp 18; Pulse Ox 95% on BiPAP; ll1 15:50 BP 120 / 51; Pulse 91; Resp 18; Pulse Ox 97% on BiPAP; ll1 MDM: 11:52 Patient medically screened. bs3 11:59 Differential diagnosis: Anemia asthma, CHF exacerbation, Chronic Obstructive Pulmonary bs3 Disease Myocardial Infarction pneumonia, pulmonary edema, reactive airway disease, Unstable Angina given response with bipap, no tachycardia, likely hypoventilation obesity/copd, doubt pe. Data reviewed: vital signs, nurses notes. 15:26 ED course: Repeat ABG slightly improved from initial given Levaquin for possible bs3 infection given her cephalexin allergy on reassessment she is much more alert she has good tidal volumes will admit for further work-up. 03/14 11:53 Order name: Blood Culture Adult (2) 3 03/14 11:53 Order name: CBC with Diff; Complete Time: 13:04 3 03/14 11:53 Order name: CMP; Complete Time: 12:40 3 03/14 11:53 Order name: Lactate w/ 2H reflex if indic.; Complete Time: 12:40 3 03/14 11:53 Order name: Protime (+inr); Complete Time: 12:40 3 03/14 11:53 Order name: Ptt, Activated; Complete Time: 12:40 3 03/14 11:53 Order name: Urinalysis w/ reflexes bs3 03/14 11:53 Order name: ABG bs3 03/14 11:53 Order name: BNP; Complete Time: 12:40 3 03/14 11:53 Order name: Troponin High Sensitivity; Complete Time: 12:40 bs3 03/14 12:45 Order name: Glucose, Ancillary Testing; Complete Time: 13:04 EDMS 03/14 12:52 Order name: CBC Smear Scan; Complete Time: 13:04 EDMS 03/14 14:03 Order name: ABG bs3 03/14 17:24 Order name: Lactate Sepsis 2 HR Follow-up EDMS 03/14 19:41 Order name: ABG Arterial Blood Gas EDMS 03/14 11:53 Order name: Chest Single View XRAY; Complete Time: 13:04 bs3 03/14 11:58 Order name: BIPAP ll1 03/14 11:58 Order name: BIPAP bs3 03/14 11:53 Order name: EKG; Complete Time: 11:54 bs3 03/14 11:53 Order name: Accucheck; Complete Time: 12:41 bs3 03/14 11:53 Order name: Cardiac monitoring; Complete Time: 12:41 bs3 03/14 11:53 Order name: EKG - Nurse/Tech; Complete Time: 12:41 bs3 03/14 11:53 Order name: IV Saline Lock - Large Bore; Complete Time: 12:09 bs3 03/14 11:53 Order name: Labs collected and sent; Complete Time: 12:09 bs3 03/14 11:53 Order name: O2 Per Protocol; Complete Time: 12:09 bs3 03/14 11:53 Order name: O2 Sat Monitoring; Complete Time: 12:09 bs3 03/14 11:53 Order name: Vital Signs; Complete Time: 12:09 bs3 Administered Medications: 12:21 Drug: NS 0.9% IV 500 ml Route: IV; Rate: bolus; Site: right forearm; ll1 12:44 Follow up: Response: No adverse reaction; IV Status: Completed infusion; IV Intake: hb 500ml 12:21 Drug: DuoNeb Nebulize (3:1) (2.5 mg - 0.5 mg) 9 ml Route: Nebulizer; ll1 12:45 Follow up: Response: No adverse reaction hb 12:27 Not Given (Physician Discretion): Rocephin IV 1 grams IV at 1 bolus once; Given slow IV ll1 push per pharmacy instructions 12:31 Drug: AZITHromycin IVPB 500 mg Route: IVPB; Infused Over: 1 hrs; Site: right forearm; ll1 13:53 Follow up: IV Status: Completed infusion; IV Intake: 250ml ll1 13:52 Drug: levofloxacin IVPB 750 mg Volume: 150 ml; Route: IVPB; Infused Over: 90 mins; ll1 Site: right forearm; 15:24 Follow up: Response: No adverse reaction; IV Status: Completed infusion; IV Intake: ll1 150ml Disposition: 15:26 Critical Care:. bs3 Disposition Summary: 03/14/23 15:27 Hospitalization Ordered Hospitalization Status: Inpatient Admission bs3 Provider: Francisco Angeles bs3 Condition: Guarded bs3 Problem: new bs3 Symptoms: have improved bs3 Bed/Room Type: Standard bs3 Location: Telemetry/MedSurg (Inpatient)(03/14/23 20:25) cg Room Assignment: [facility](03/14/23 20:25) Diagnosis - COPD/ Chronic obstructive pulmonary disease with (acute) exacerbation bs3 - Morbid (severe) obesity with alveolar hypoventilation bs3 Forms: - Medication Reconciliation Form bs3 - SBAR form bs3 Critical care time excluding procedures: 15:26 Critical care time: Bedside Care: 45 minutes. Total time: 45 minutes bs3 Signatures: Dispatcher [employer] Mitzi Coreas RN RN cg Rosy Andrade RN RN jl7 Aron Browne RN RN ll1 Juan Alberto Watson MD MD bs3 Sherin Null RN Corrections: (The following items were deleted from the chart) 17:08 15:27 Intensive Care Unit bs3 jl7 17:08 15:27 bs3 jl7 20:25 17:08 [facility] ER HOLD jl7 cg 20:25 17:08 ERHOLD- jl7 cg
[2023-03-14 15:38] LABS: Arterial Blood Carboxyhemoglob 1.5 % (0-1.5); Blood Gas Oxyhemoglobin 93.3 % (94-97); Blood O2 Saturation 95.9 % (92-98.5)
[2023-03-14] MEDS ORDERED: ACETAMINOPHEN 325 MG TABLET PO PRN (16:44)
[2023-03-14] MEDS ORDERED: ONDANSETRON 4 MG/2 ML VIAL IV PRN (16:48)
--- NOTE | 2023-03-14 16:53 | P.HP ---
Certification for Inpatient Patient admitted to: Inpatient With expected LOS: >2 Midnights Patient will require the following post-hospital care: None Practitioner: I am a practitioner with admitting privileges, knowledge of patient current condition, hospital course, and medical plan of care. Services: Services provided to patient in accordance with Admission requirements found in Title 42 Section 412.3 of the Code of Federal Regulations Patient History Date of Service: 03/14/23 Reason for admission: SOB History of Present Illness: Patient is a 48-year-old female with a past medical history significant for asthma, COPD, DM 2, CHF, hyperlipidemia, GERD, anemia, dementia, depression, obesity who presents with complaint of shortness of breath. Patient alert and oriented x2 and confused. Patient is a resident of a alf. Patient was noted with hypoxia in the alf and EMS was called. Patient reported associated signs and symptoms of cough. Patient denies any other signs and symptoms. Symptoms are aggravated or relieved by nothing. Patient was brought to the hospital for medical evaluation. Allergies adhesive tape Adverse Reaction (Intermediate, Verified 03/26/22 06:12) Nausea/Vomiting codeine Adverse Reaction (Intermediate, Verified 03/26/22 06:12) Nausea/Vomiting Home Medications: Albuterol Sulfate [Proair Digihaler] 90 mcg IH TID 03/26/22 Aripiprazole [Abilify] 10 mg PO BEDTIME 03/26/22 Aspirin [Aspirin EC 81 MG] 81 mg PO DAILY 03/26/22 Atorvastatin Calcium 40 mg PO BEDTIME 03/26/22 Benztropine Mesylate 1 mg PO BEDTIME 03/26/22 Budesonide/Formoterol Fumarate [Symbicort 160-4.5 Mcg Inhaler] 2 puff IH BID 03/26/22 Docusate [Colace Cap*] 100 mg PO BID 03/26/22 Ergocalciferol (Vitamin D2) [Vitamin D2] 50,000 unit PO DAILY 03/26/22 Ferrous Sulfate 325 mg PO DAILY 03/26/22 Fexofenadine HCl [Jeri Allergy] 180 mg PO DAILY 03/26/22 Folic Acid 0.4 mg PO DAILY 03/26/22 Furosemide 80 mg PO BID 03/26/22 Gabapentin 300 mg PO TID 03/26/22 Lisinopril [Zestril] 5 mg PO DAILY 03/26/22 Metformin HCl [Glucophage*] 500 mg PO BID 03/26/22 Docusate [Colace Cap*] 100 mg PO DAILY PRN cap 03/31/22 Insulin Glargine,Hum.rec.anlog [Semglee] 35 unit SQ DAILY ml 03/31/22 Ipratropium Neb [Atrovent*] 0.5 mg NEB [id number] amp 03/31/22 Spironolactone [Aldactone*] 25 mg PO DAILY tab 03/31/22 predniSONE [Prednisone*] 10 mg PO BID #10 tab 03/31/22 - Past Medical/Surgical History -: COPD -: DMII -: morbid obesity Psychosocial/ Personal History: Patient is resident of alf - Social History Smoking Status: Never smoker Alcohol use: No CD- Drugs: No Caffeine use: Yes Place of Residence: Home Review of Systems is unable to be obtained (Unable to assess. Patient confused) Physical Examination - Physical Exam General: Alert, Oriented x2, Moderate distress, Confused HEENT: Atraumatic, PERRLA, Mucous membr. moist/pink, EOMI, Sclerae nonicteric Neck: Supple, 2+ carotid pulse no bruit, No LAD, Without JVD or thyroid abnormality Respiratory: Diminished Cardiovascular: No edema, Regular rate/rhythm, Normal S1 S2 Capillary refill: <2 Seconds Gastrointestinal: Normal bowel sounds, No tenderness Musculoskeletal: No clubbing, No swelling, No tenderness Integumentary: No rashes, No significant lesion Neurological: Normal speech, Normal tone, Normal affect Lymphatics: No axilla or inguinal lymphadenopathy - Studies Laboratory Data (last 24 hrs) 03/14/23 12:03: PT 11.5, INR 1.05, APTT 28.2 03/14/23 12:03: Sodium 137, Potassium 4.4, BUN 9, Creatinine 0.66, Glucose 230 H, Total Bilirubin 0.3, AST 8 L, ALT 20, Alkaline Phosphatase 96 03/14/23 12:03: WBC 16.20 H, Hgb 11.4 L, Hct 36.6, Plt Count 265 Assessment and Plan - Plan --Acute respiratory failure with hypercapnia. Patient on BiPAP therapy. Continue steroids and neb treatment with albuterol\Atrovent. Chest x-ray indicates Streaky central opacities, could reflect mild edema or viral infection. CT chest pending for further evaluation. Continue supportive care --Acute on chronic COPD exacerbation. Continue current treatment regimen. Patient placed on antibiotics. --Moderate severe asthma with exacerbation. Continue current treatment regimen. --Acute metabolic encephalopathy. Likely secondary to hypercapnia and hypoxia. Continue current treatment regimen and supportive care. --Iron deficiency anemia. Continue medication. --Depression. Continue supportive care. --Chronic diastolic CHF. Stable. Daily weight. Continue diuresis with Lasix. --DM2 with neuropathy\hyperglycemia. BS monitoring with sliding scale and Lantus.. Continue gabapentin for her neuropathy. --Hyperlipidemia. Continue statin. --Super obesity. BMI greater than 50. Patient counseled on weight reduction, diet and excise therapy --Hyperlipidemia. Continue statin. --GERD. Patient placed on Protonix. --Depression. Continue home medication. -- DVT prophylaxis with Lovenox subQ. Discharge Plan: Home Plan to discharge in: Greater than 2 days - Advance Directives Does patient have a Living Will: No Does patient have a Durable POA for Healthcare: No - Code Status/Comfort Care Code Status Assessed: Yes Critical Care: No
[2023-03-14] MEDS ORDERED: Levofloxacin 750mg IV 750 MG/150 ML BAG IV SCH (17:30)
[2023-03-14 17:42] VITALS: BMI 70.9
[2023-03-14] MEDS ORDERED: FUROSEMIDE 40 MG/4 ML VIAL ONE (18:12)
[2023-03-14] MEDS ORDERED: ENOXAPARIN 40 MG/0.4 ML SQ ONE (18:12)
[2023-03-14] MEDS ORDERED: TRAMADOL HCL 50 MG TAB ONE (18:12)
[2023-03-14] MEDS: ENOXAPARIN 40 MG/0.4 ML SQ SCH (18:15)
[2023-03-14] MEDS: FUROSEMIDE 40 MG/4 ML VIAL IV SCH (18:15)
[2023-03-14] MEDS: TRAMADOL HCL 50 MG TAB PO PRN (18:19)
[2023-03-14] MEDS: ALBUTEROL 2.5 MG/3 ML NEB SOL NEB SCH (19:15)
[2023-03-14] MEDS: IPRATROPIUM BROM 0.5MG/2.5ML NEB SCH (19:15)
[2023-03-14 19:39] LABS: Arterial Blood Carboxyhemoglob 1.4 % (0-1.5); Blood Gas Oxyhemoglobin 90.7 % (94-97); Blood O2 Saturation 93.1 % (92-98.5)
[2023-03-14] MEDS ORDERED: SODIUM CHLORIDE 0.9% 10ML INJ IV PRN (19:50)
[2023-03-14] MEDS: PANTOPRAZOLE 40 MG INJ IVP SCH (23:31)
[2023-03-15] MEDS: ALBUTEROL 2.5 MG/3 ML NEB SOL NEB SCH ×4 (02:30→20:39)
[2023-03-15] MEDS: IPRATROPIUM BROM 0.5MG/2.5ML NEB SCH ×4 (02:30→20:39)
[2023-03-15 03:39] LABS: Absolute Lymphocytes (CBC) 0.9 K/uL (0.7-4.9); Hematocrit 34.7 % (36.0-45.0); MCV 88.2 fL (80-100); MPV 8.1 fL (7.6-11.3); RBC Red Blood Cell Count 3.93 M/uL (3.86-4.86)
[2023-03-15 04:13] LABS: Potassium 4.1 mEq/L (3.5-5.1)
--- NOTE | 2023-03-15 07:07 | EKG ---
Test Date: 2023-03-14 Test Time: 12:38:58 Cherry Cutter: MANUEL MEASUREMENT RESULTS: Intervals: Rate: 134 [place]: 114 QRSD: 90 QT: 270 QTc: 403 [place]: P: 25 [place]: 114 QRS: 63 T: 27 INTERPRETIVE STATEMENTS: Sinus rhythm with frequent and consecutive premature ventricular complexes with junctional escape complexes Right atrial enlargement Nonspecific ST abnormality Abnormal ECG Compared to ECG 03/26/2022 00:42:10 Junctional escape complex(es) now present Ventricular premature complex(es) now present Atrial abnormality now present ST (T wave) deviation now present Electronically Signed On 03-15-23 07:06:32 CDT by Jessee Carter
[2023-03-15] MEDS: FUROSEMIDE 40 MG/4 ML VIAL IV SCH (08:29)
[2023-03-15] MEDS: PANTOPRAZOLE 40 MG INJ IVP SCH (08:29)
[2023-03-15] MEDS: ENOXAPARIN 40 MG/0.4 ML SQ SCH (08:29)
[2023-03-15] MEDS: dexAMETHasone 10 MG/ML VIAL IV SCH (08:29)
[2023-03-15] MEDS ORDERED: ASPIRIN 81 MG CHEWABLE TABLET PO SCH (09:00)
[2023-03-15] MEDS: Levofloxacin 750mg IV 750 MG/150 ML BAG IV SCH (13:04)
[2023-03-15] MEDS: TRAMADOL HCL 50 MG TAB PO PRN ×2 (13:04→20:43)
[2023-03-15] MEDS ORDERED: HOME MED 1 EA UNK (Aripiprazole [Abilify] 10 MG Tablet) PO SCH (13:21)
--- NOTE | 2023-03-15 13:24 | P.PN ---
Subjective Date of Service: 03/15/23 Chief Complaint: SOB Patient is doing much better today. Patient is awake and alert and tolerating oxygen by nasal cannula. She used BiPAP all night. Physical Examination - Vital Signs Temperature: 97.2 F Blood Pressure: 140/72 Pulse: 64 Respirations: 24 Pulse Ox (%): 96 Assessment And Plan - Plan Physical Exam General: Alert, Oriented x3. NAD Neck: Supple, No LAD, no elevated JVD. Respiratory: Diminished breath sounds bilaterally, no rhonchi or rales. Cardiovascular: No edema, Regular rate/rhythm, Normal S1 S2 Gastrointestinal: Normal bowel sounds, No tenderness Musculoskeletal: No clubbing, No swelling, No tenderness Integumentary: No rashes, No significant lesion Neurological: Normal speech, Normal tone, Normal affect Lymphatics: No axilla or inguinal lymphadenopathy Plan Acute respiratory failure with hypercapnia/acute metabolic encephalopathy/acute COPD exacerbation Encephalopathy is secondary to CO2 with Significantly improved. Patient treated with BiPAP. She is currently tolerating oxygen by nasal cannula. Keep oxygen saturation between 88 and 92%. Use BiPAP during sleep. continue steroids and neb treatment with albuterol\Atrovent. Continue antibiotics. Moderate severe asthma with exacerbation. Continue current treatment regimen. Iron deficiency anemia. Continue medication. Depression: Continue supportive care. Chronic diastolic CHF Stable. Daily weight. Continue diuresis with Lasix. DM2 with neuropathy\hyperglycemia. BS monitoring with sliding scale and Lantus. Continue gabapentin for her neuropathy. Hyperlipidemia. Continue statin. Morbid besity. BMI greater than 50. Patient counseled on weight reduction, diet and excise therapy Depression. Continue home medications. DVT prophylaxis: Lovenox subQ.
--- NOTE | 2023-03-15 14:39 | EKG ---
Test Date: 2023-03-14 Test Time: 12:39:34 Greens Picker: LML MEASUREMENT RESULTS: Intervals: Rate: 95 [place]: 180 QRSD: 88 QT: 346 QTc: 434 [place]: P: 38 [place]: 180 QRS: 92 T: 55 INTERPRETIVE STATEMENTS: Normal sinus rhythm Rightward axis Low voltage QRS Marked ST abnormality, possible lateral subendocardial injury Abnormal ECG Compared to ECG 03/14/2023 12:38:58 Right-axis deviation now present Low QRS voltage now present Junctional escape complex(es) no longer present Ventricular premature complex(es) no longer present Atrial abnormality no longer present ST (T wave) deviation still present Electronically Signed On 03-15-23 14:36:58 CDT by Marlon Cervantes
[2023-03-15] MEDS: GABAPENTIN 300 MG CAP PO SCH ×2 (14:46→20:42)
[2023-03-15 16:07] LABS: Specific Gravity 1.023 (1.005-1.030); Urine Bacteria None Seen /HPF (<20); Urine Bilirubin NEGATIVE (Negative); Urine Blood 1+ (Negative); Urine Clarity Clear (Clear); Urine Color Light-Yellow (Yellow); Urine Glucose 4+ (Over) (Negative); Urine Protein NEGATIVE (Negative); Urine Urobilinogen Normal (Normal)
[2023-03-15] MEDS ORDERED: D10W 250 ML BAG IV PRN (16:48)
[2023-03-15] MEDS ORDERED: GLUCAGON 1 MG/VIAL IM PRN (16:48)
[2023-03-15] MEDS: INSULIN GLARGINE 100 UNIT/ML SQ SCH (17:02)
[2023-03-15] MEDS: BENZTROPINE 1 MG TAB PO SCH (20:41)
[2023-03-15] MEDS: CALCIUM CARBONATE CHEW 500MG TAB PO SCH (20:41)
[2023-03-15] MEDS: ATORVASTATIN 40 MG TAB PO SCH (20:43)
[2023-03-15] MEDS: INSULIN -REGULAR HUMAN 50 UNIT/0.5 ML ML SQ SCH (21:51)
[2023-03-16] MEDS: IPRATROPIUM BROM 0.5MG/2.5ML NEB SCH ×4 (01:35→19:30)
[2023-03-16] MEDS: ALBUTEROL 2.5 MG/3 ML NEB SOL NEB SCH ×4 (01:35→19:30)
[2023-03-16 05:55] LABS: Absolute Lymphocytes (CBC) 1.4 K/uL (0.7-4.9); Hematocrit 32.9 % (36.0-45.0); Lymphocytes % 12.2 % (15.3-44.8); MCV 87.3 fL (80-100); MPV 8.1 fL (7.6-11.3); RBC Red Blood Cell Count 3.76 M/uL (3.86-4.86)
[2023-03-16 06:28] LABS: Albumin 2.9 g/dL (3.4-5.0); Potassium 4.1 mEq/L (3.5-5.1)
[2023-03-16] MEDS ORDERED: HOME MED 1 EA UNK (Furosemide [Furosemide] 80 MG Tablet) PO SCH (09:00)
[2023-03-16] MEDS ORDERED: HOME MED 1 EA UNK (Folic Acid [Folic Acid] 0.4 MG Tablet) PO SCH (09:00)
[2023-03-16] MEDS: INSULIN GLARGINE 100 UNIT/ML SQ SCH (09:21)
[2023-03-16] MEDS: INSULIN -REGULAR HUMAN 50 UNIT/0.5 ML ML SQ SCH ×4 (09:22→21:43)
[2023-03-16] MEDS: FEXOFENADINE 180 MG TAB PO SCH (09:22)
[2023-03-16] MEDS: ENOXAPARIN 40 MG/0.4 ML SQ SCH (09:22)
[2023-03-16] MEDS: FERROUS SULFATE 325 MG TAB PO SCH (09:23)
[2023-03-16] MEDS: ASPIRIN EC 81 MG TAB PO SCH (09:23)
[2023-03-16] MEDS: DOCUSATE NA 100 MG CAP PO SCH (09:23)
[2023-03-16] MEDS: ARIPiprazole 5 MG TAB PO SCH (09:23)
[2023-03-16] MEDS: CALCIUM CARBONATE CHEW 500MG TAB PO SCH ×2 (09:23→21:42)
[2023-03-16] MEDS: BENZTROPINE 1 MG TAB PO SCH ×2 (09:23→21:43)
[2023-03-16] MEDS: SERTRALINE HCL 100 MG TAB PO SCH (09:24)
[2023-03-16] MEDS: FUROSEMIDE 40 MG TABLET PO SCH (09:24)
[2023-03-16] MEDS: FOLIC ACID 1 MG TABLET PO SCH (09:24)
[2023-03-16] MEDS: SPIRONOLACTONE 25 MG TABLET PO SCH (09:24)
[2023-03-16] MEDS: GABAPENTIN 300 MG CAP PO SCH ×3 (09:24→21:43)
[2023-03-16] MEDS: PANTOPRAZOLE 40 MG INJ IVP SCH (09:25)
[2023-03-16] MEDS: dexAMETHasone 10 MG/ML VIAL IV SCH (09:25)
[2023-03-16] MEDS: Levofloxacin 750mg IV 750 MG/150 ML BAG IV SCH (12:45)
[2023-03-16] MEDS: TRAMADOL HCL 50 MG TAB PO PRN (16:55)
--- NOTE | 2023-03-16 17:16 | P.PN ---
Subjective Date of Service: 03/16/23 Chief Complaint: SOB Patient has been tolerating oxygen by nasal cannula She is currently requiring about 6 L of nasal cannula She has no new complaint. Physical Examination - Vital Signs Temperature: 97.9 F Blood Pressure: 131/69 Pulse: 56 Respirations: 22 Pulse Ox (%): 98 Assessment And Plan - Plan Physical Exam General: Alert, Oriented x3. NAD Neck: Supple, No LAD, no elevated JVD. Respiratory: Diminished breath sounds bilaterally, no rhonchi or rales. Cardiovascular: No edema, Regular rate/rhythm, Normal S1 S2 Gastrointestinal: Normal bowel sounds, No tenderness Musculoskeletal: No clubbing, No swelling, No tenderness Integumentary: No rashes, No significant lesion Neurological: Normal speech, Normal tone, Normal affect Lymphatics: No axilla or inguinal lymphadenopathy Plan Acute respiratory failure with hypercapnia/acute metabolic encephalopathy/acute COPD exacerbation Encephalopathy is secondary to CO2 with Significantly improved. Patient treated with BiPAP. She is currently tolerating oxygen by nasal cannula. Keep oxygen saturation between 88 and 92%. Use BiPAP during sleep. continue steroids and neb treatment with albuterol\Atrovent. Continue antibiotics. Wean oxygen Moderate severe asthma with exacerbation. Continue current treatment regimen. Iron deficiency anemia. Continue medication. Depression: Continue supportive care. Chronic diastolic CHF Stable. Daily weight. Continue diuresis with Lasix. DM2 with neuropathy\hyperglycemia. BS monitoring with sliding scale and Lantus. Continue gabapentin for her neuropathy. Hyperlipidemia. Continue statin. Morbid besity. BMI greater than 50. Depression. Continue home medications. DVT prophylaxis: Lovenox subQ.
[2023-03-16] MEDS: ATORVASTATIN 40 MG TAB PO SCH (21:43)
[2023-03-17] MEDS: ALBUTEROL 2.5 MG/3 ML NEB SOL NEB SCH ×4 (00:15→19:45)
[2023-03-17] MEDS: IPRATROPIUM BROM 0.5MG/2.5ML NEB SCH ×4 (00:15→19:45)
[2023-03-17 05:00] LABS: Phosphorus 3.3 mg/dL (2.5-4.9); Potassium 4.5 mEq/L (3.5-5.1)
[2023-03-17] MEDS: CALCIUM CARBONATE CHEW 500MG TAB PO SCH ×2 (09:58→22:02)
[2023-03-17] MEDS: GABAPENTIN 300 MG CAP PO SCH ×3 (09:59→22:01)
[2023-03-17] MEDS: FUROSEMIDE 40 MG TABLET PO SCH (09:59)
[2023-03-17] MEDS: FERROUS SULFATE 325 MG TAB PO SCH (09:59)
[2023-03-17] MEDS: ASPIRIN EC 81 MG TAB PO SCH (09:59)
[2023-03-17] MEDS: SPIRONOLACTONE 25 MG TABLET PO SCH (09:59)
[2023-03-17] MEDS: DOCUSATE NA 100 MG CAP PO SCH (09:59)
[2023-03-17] MEDS: BENZTROPINE 1 MG TAB PO SCH ×2 (09:59→22:00)
[2023-03-17] MEDS: FOLIC ACID 1 MG TABLET PO SCH (09:59)
[2023-03-17] MEDS: ARIPiprazole 5 MG TAB PO SCH (09:59)
[2023-03-17] MEDS: ENOXAPARIN 40 MG/0.4 ML SQ SCH (10:00)
[2023-03-17] MEDS: dexAMETHasone 10 MG/ML VIAL IV SCH (10:00)
[2023-03-17] MEDS: FEXOFENADINE 180 MG TAB PO SCH (10:00)
[2023-03-17] MEDS: INSULIN -REGULAR HUMAN 50 UNIT/0.5 ML ML SQ SCH ×4 (10:00→22:02)
[2023-03-17] MEDS: PANTOPRAZOLE 40 MG INJ IVP SCH (10:00)
[2023-03-17] MEDS: INSULIN GLARGINE 100 UNIT/ML SQ SCH (10:00)
[2023-03-17] MEDS: SERTRALINE HCL 100 MG TAB PO SCH (10:01)
--- NOTE | 2023-03-17 11:53 | P.PN ---
Subjective Date of Service: 03/17/23 Chief Complaint: SOB Patient has no new complaint. He has been using BiPAP at night and currently needing 6 to 7 L of oxygen by nasal cannula to maintain SaO2 greater than 90%. Physical Examination - Vital Signs Temperature: 97 F Blood Pressure: 125/57 Pulse: 54 Respirations: 20 Pulse Ox (%): 90 Assessment And Plan - Plan Physical Exam General: Alert, Oriented x3. NAD Neck: Supple, No LAD, no elevated JVD. Respiratory: Diminished breath sounds bilaterally, no rhonchi or rales. Cardiovascular: No edema, Regular rate/rhythm, Normal S1 S2 Gastrointestinal: Normal bowel sounds, No tenderness Musculoskeletal: No clubbing, No swelling, No tenderness Integumentary: No rashes, No significant lesion Neurological: Normal speech, Normal tone, Normal affect Lymphatics: No axilla or inguinal lymphadenopathy Plan Acute respiratory failure with hypercapnia/acute metabolic encephalopathy/acute COPD exacerbation Encephalopathy is secondary to CO2 with Encephalopathy resolved. Continue BiPAP at night and when sleeping. Wean oxygen to keep oxygen saturation between 88 and 92%. Continue steroids and neb treatment with albuterol\Atrovent. Continue antibiotics. Target oxygen requirement of 4 L by nasal cannula for discharge. Moderate severe asthma with exacerbation. Continue current treatment regimen. Iron deficiency anemia. Continue medication. Depression: Continue supportive care. Chronic diastolic CHF Stable. Daily weight. Continue diuresis with Lasix. DM2 with neuropathy\hyperglycemia. BS monitoring with sliding scale and Lantus. Continue gabapentin for her neuropathy. Hyperlipidemia. Continue statin. Morbid besity. BMI greater than 50. Depression. Continue home medications. DVT prophylaxis: Lovenox subQ.
[2023-03-17] MEDS: ARFORMOTEROL TARTRATE 15 MCG/2 ML VIAL.NEB NEB SCH ×2 (12:24→19:45)
--- NOTE | 2023-03-17 12:25 | P.CNS ---
Date of Consult: 03/17/23 Reason for Consult: Respiratory failure Chief Complaint: SOB History of Present Illness: Patient is 48 years of age shelter resident metabolic syndrome obesity history of sleep apnea admitted from the shelter with hypoxemia she does have a history of asthma former smoker currently drowsy unable to remain awake Patient uses Symbicort at home Allergies adhesive tape Adverse Reaction (Intermediate, Verified 03/26/22 06:12) Nausea/Vomiting codeine Adverse Reaction (Intermediate, Verified 03/26/22 06:12) Nausea/Vomiting Home Medications: Aripiprazole [Abilify] 10 mg PO DAILY 03/26/22 Aspirin [Aspirin EC 81 MG] 81 mg PO DAILY 03/26/22 Atorvastatin Calcium 40 mg PO BEDTIME 03/26/22 Benztropine Mesylate 1 mg PO BID 03/26/22 Docusate [Colace Cap*] 100 mg PO DAILY 03/26/22 Ergocalciferol (Vitamin D2) [Vitamin D2] 50,000 unit PO Q7D 03/26/22 Ferrous Sulfate 325 mg PO DAILY 03/26/22 Fexofenadine HCl [Jeri Allergy] 180 mg PO DAILY 03/26/22 Folic Acid 0.4 mg PO DAILY 03/26/22 Furosemide 80 mg PO DAILY 03/26/22 Gabapentin 300 mg PO TID 03/26/22 Metformin HCl [Glucophage*] 500 mg PO BID 03/26/22 Spironolactone [Aldactone*] 25 mg PO DAILY tab 03/31/22 Calcium Carbonate [Tums Regular] 750 mg PO BID 03/15/23 Sertraline [Zoloft*] 100 mg PO DAILY 03/15/23 - Past Medical/Surgical History Diabetic: Yes -: COPD -: DMII -: morbid obesity -: Asthma Psychosocial/ Personal History: Patient is resident of shelter - Social History Alcohol use: No CD- Drugs: No Caffeine use: Yes Place of Residence: Home Review of Systems is unable to be obtained Physical Examination Temp Pulse Resp BP Pulse Ox 97 F 54 20 125/57 L 90 L 03/17/23 11:53 03/17/23 11:53 03/17/23 11:53 03/17/23 11:53 03/17/23 11:53 General: Unresponsive HEENT: Atraumatic Neck: Supple Cardiovascular: Regular rate/rhythm, Normal S1 S2, Edema - Problems (1) Respiratory failure with hypoxia and hypercapnia Current Visit: No Status: Acute Plan: Patient is 48 years of age morbidly obese I suspect she has underlying obesity hypoventilation syndrome/sleep apnea she does use a CPAP at home uses Symbicort at home White count is mildly elevated declining chest x-ray shows cardiomegaly patient remains hypoxic no evidence of sepsis DC IV levofloxacin TSH was normal on April 06 reduce dose of prednisone discharge planning difficult to exclude pneumonia changed to p.o. levofloxacin Qualifiers: Chronicity: acute on chronic Qualified Code(s): J96.21 - Acute and chronic respiratory failure with hypoxia; J96.22 - Acute and chronic respiratory failure with hypercapnia
[2023-03-17] MEDS: acetaZOLAMIDE 250 MG TAB PO SCH ×2 (13:18→22:01)
[2023-03-17] MEDS ORDERED: predniSONE 20 MG TAB PO SCH (21:00)
[2023-03-17] MEDS: predniSONE 10 MG TAB PO SCH (22:00)
[2023-03-17] MEDS: ATORVASTATIN 40 MG TAB PO SCH (22:01)
[2023-03-18] MEDS: IPRATROPIUM BROM 0.5MG/2.5ML NEB SCH ×4 (01:15→13:01)
[2023-03-18] MEDS: ALBUTEROL 2.5 MG/3 ML NEB SOL NEB SCH ×3 (01:15→13:01)
[2023-03-18 03:33] LABS: Phosphorus 3.2 mg/dL (2.5-4.9); Potassium 4.2 mEq/L (3.5-5.1)
[2023-03-18] MEDS: ARFORMOTEROL TARTRATE 15 MCG/2 ML VIAL.NEB NEB SCH ×2 (07:58→12:36)
[2023-03-18] MEDS: INSULIN -REGULAR HUMAN 50 UNIT/0.5 ML ML SQ SCH ×2 (08:32→12:31)
[2023-03-18] MEDS: INSULIN GLARGINE 100 UNIT/ML SQ SCH (08:33)
[2023-03-18] MEDS: ENOXAPARIN 40 MG/0.4 ML SQ SCH (08:34)
[2023-03-18] MEDS: DOCUSATE NA 100 MG CAP PO SCH (08:35)
[2023-03-18] MEDS: predniSONE 10 MG TAB PO SCH (08:36)
[2023-03-18] MEDS: FERROUS SULFATE 325 MG TAB PO SCH (08:37)
[2023-03-18] MEDS: FEXOFENADINE 180 MG TAB PO SCH (08:37)
[2023-03-18] MEDS: FOLIC ACID 1 MG TABLET PO SCH (08:37)
[2023-03-18] MEDS: ARIPiprazole 5 MG TAB PO SCH (08:38)
[2023-03-18] MEDS: ASPIRIN EC 81 MG TAB PO SCH (08:38)
[2023-03-18] MEDS: GABAPENTIN 300 MG CAP PO SCH ×2 (08:39→14:11)
[2023-03-18] MEDS: acetaZOLAMIDE 250 MG TAB PO SCH (08:39)
[2023-03-18] MEDS: SERTRALINE HCL 100 MG TAB PO SCH (08:39)
[2023-03-18] MEDS: BENZTROPINE 1 MG TAB PO SCH (08:40)
[2023-03-18] MEDS: CALCIUM CARBONATE CHEW 500MG TAB PO SCH (08:40)
[2023-03-18] MEDS ORDERED: levoFLOXacin 750 MG TAB PO SCH (09:00)
[2023-03-18] MEDS: FUROSEMIDE 40 MG TABLET PO SCH (10:34)
[2023-03-18] MEDS: SPIRONOLACTONE 25 MG TABLET PO SCH (10:36)
--- NOTE | 2023-03-18 10:54 | P.DS ---
Admission Date: 03/14/23 Discharge Date: 03/18/23 Disposition: TRANSFER TO LONG TERM Discharge Condition: FAIR Reason for Admission: SOB Brief History of Present Illness: Patient is a 48-year-old female with a past medical history significant for asthma, COPD, DM 2, CHF, hyperlipidemia, GERD, anemia, dementia, depression, obesity who presented with complaint of shortness of breath. Patient alert and oriented x2 and confused. Patient is a resident of a residential. Patient was noted with hypoxia in the residential and EMS was called. Patient reported associated signs and symptoms of cough. Patient denies any other signs and symptoms. Symptoms are aggravated or relieved by nothing. Patient was brought to the hospital for medical evaluation. Hospital Course: Patient admitted to the medical floor and the following medical problems addressed: Acute respiratory failure with hypercapnia/acute metabolic encephalopathy/acute COPD exacerbation Encephalopathy is secondary to CO2 retention. Patient treated with BiPAP for 24 hours and transition to oxygen by nasal cannula. Encephalopathy resolved. BiPAP was used at night and when sleeping. Oxygen requirement decreased to 4 L by nasal cannula Wean oxygen to keep oxygen saturation between 88 and 92%. Patient was treated with steroids and neb treatment with albuterol\Atrovent. Also placed on oral Levaquin. Patient denies shortness of breath today. She is deemed stable for discharge Moderate severe asthma with exacerbation. Treated with nebs and steroid. Iron deficiency anemia. She was treated with iron supplementation. Depression: Continue supportive care. Chronic diastolic CHF Stable. Daily weight. Patient diuresed with Lasix. She also needed Diamox for alkalosis. DM2 with neuropathy\hyperglycemia. Managed with Lantus and insulin sliding scale. Lantus titrated to 15 units daily. Continued gabapentin for her neuropathy. Hyperlipidemia. Continued statin. Morbid besity. BMI greater than 50. Depression. Continued home medications. Vital Signs/Physical Exam: Temp Pulse Resp BP Pulse Ox 98.2 F 47 L 16 179/77 H 98 03/18/23 04:00 03/18/23 10:36 03/18/23 04:00 03/18/23 10:36 03/18/23 04:00 General: Alert, In no apparent distress, Oriented x3, Obese HEENT: Mucous membr. moist/pink Neck: JVD not distended Respiratory: Clear to auscultation bilaterally, Normal air movement Cardiovascular: No edema, Regular rate/rhythm, Normal S1 S2 Gastrointestinal: Normal bowel sounds, Soft and benign, Non-distended Musculoskeletal: No swelling Integumentary: No cyanosis Laboratory Data at Discharge: WBC 11.70 thou/uL (4.3-10.9) H 03/16/23 05:19 Hgb 10.3 g/dL (12.0-15.0) L 03/16/23 05:19 Hct 32.9 % (36.0-45.0) L 03/16/23 05:19 Plt Count 267 thou/uL (152-406) 03/16/23 05:19 PT 11.5 SECONDS (9.5-12.5) 03/14/23 12:03 INR 1.05 03/14/23 12:03 APTT 28.2 SECONDS (24.3-36.9) 03/14/23 12:03 Sodium 130 mEq/L (136-145) L 03/18/23 02:26 Potassium 4.2 mEq/L (3.5-5.1) 03/18/23 02:26 BUN 24 mg/dL (7-18) H 03/18/23 02:26 Creatinine 0.78 mg/dL (0.55-1.02) 03/18/23 02:26 Glucose 366 mg/dL (74-106) H 03/18/23 02:26 Phosphorus 3.2 mg/dL (2.5-4.9) 03/18/23 02:26 Magnesium 2.0 mg/dL (1.6-2.4) 03/17/23 04:34 Total Bilirubin 0.3 mg/dL (0.2-1.0) 03/14/23 12:03 AST 8 U/L (15-37) L 03/14/23 12:03 ALT 20 U/L (13-56) 03/14/23 12:03 Alkaline Phosphatase 96 U/L (45-117) 03/14/23 12:03 Triglycerides 120 mg/dL (<150) 03/15/23 03:02 Cholesterol 127 mg/dL (<200) 03/15/23 03:02 HDL Cholesterol 49 mg/dL (40-60) 03/15/23 03:02 Cholesterol/HDL Ratio 2.59 03/15/23 03:02 Home Medications: Aripiprazole [Abilify] 10 mg PO DAILY 03/26/22 Aspirin [Aspirin EC 81 MG] 81 mg PO DAILY 03/26/22 Atorvastatin Calcium 40 mg PO BEDTIME 03/26/22 Benztropine Mesylate 1 mg PO BID 03/26/22 Docusate [Colace Cap*] 100 mg PO DAILY 03/26/22 Ergocalciferol (Vitamin D2) [Vitamin D2] 50,000 unit PO Q7D 03/26/22 Ferrous Sulfate 325 mg PO DAILY 03/26/22 Fexofenadine HCl [Jeri Allergy] 180 mg PO DAILY 03/26/22 Folic Acid 0.4 mg PO DAILY 03/26/22 Furosemide 80 mg PO DAILY 03/26/22 Gabapentin 300 mg PO TID 03/26/22 Metformin HCl [Glucophage*] 500 mg PO BID 03/26/22 Spironolactone [Aldactone*] 25 mg PO DAILY tab 03/31/22 Calcium Carbonate [Tums Regular*] 750 mg PO BID 03/15/23 Sertraline [Zoloft*] 100 mg PO DAILY 03/15/23 Albuterol Neb [Proventil 0.083% Neb Soln] 2.5 mg NEB [id number] amp 03/18/23 Insulin -Regular Human [Novolin -R*] See Protocol SQ ACHS ml 03/18/23 Insulin Glargine,Hum.rec.anlog [Semglee] 15 unit SQ DAILY ml 03/18/23 Ipratropium Neb [Atrovent*] 0.5 mg NEB [id number] amp 03/18/23 acetaZOLAMIDE [Diamox*] 250 mg PO BID #60 tab 03/18/23 levoFLOXacin [Levaquin*] 750 mg PO DAILY #3 tab 03/18/23 predniSONE [Deltasone*] 10 mg PO BID #14 tab 03/18/23 New Medications: predniSONE [Deltasone*] 10 mg PO BID #14 tab acetaZOLAMIDE [Diamox*] 250 mg PO BID #60 tab levoFLOXacin [Levaquin*] 750 mg PO DAILY #3 tab Diet: ADA Activity: Fall precautions Followup: NONE,NONE [Primary Care Provider] - Time spent managing pt's care (in minutes): 36
[2023-03-18 12:13] VITALS: BP 155/82; TEMP 97.1
[2023-03-18 14:14] VITALS: O2SAT 92
== END 2023-03-18 16:11 | DRG 189 ==
LOC: ER 11:50 → ERHOLD 16:42 → 2ND 20:58
PROVIDERS: ADMIT Internal Medicine; ATTEND Internal Medicine
PROC: 5A09457 Assistance with Respiratory Ventilation, 24-96 Consecutive Hours, Continuous Positive Airway Pressure (ICD-10-PCS; principal; 2023-03-17)
DX: J96.22 Acute and chronic respiratory failure with hypercapnia (principal); G93.41 Metabolic encephalopathy; J44.1 Chronic obstructive pulmonary disease with (acute) exacerbation; E66.2 Morbid (severe) obesity with alveolar hypoventilation; Z68.45 Body mass index [BMI] 70 or greater, adult; J45.51 Severe persistent asthma with (acute) exacerbation; I50.32 Chronic diastolic (congestive) heart failure; I13.0 Hypertensive heart and chronic kidney disease with heart failure and stage 1 through stage 4 chronic kidney disease, or unspecified chronic kidney disease; J96.21 Acute and chronic respiratory failure with hypoxia; N18.30 Chronic kidney disease, stage 3 unspecified; E11.22 Type 2 diabetes mellitus with diabetic chronic kidney disease; E11.40 Type 2 diabetes mellitus with diabetic neuropathy, unspecified; E11.65 Type 2 diabetes mellitus with hyperglycemia; D63.1 Anemia in chronic kidney disease; D50.9 Iron deficiency anemia, unspecified; K21.9 Gastro-esophageal reflux disease without esophagitis; F32.A Depression, unspecified; E78.5 Hyperlipidemia, unspecified; Z88.5 Allergy status to narcotic agent; Z79.4 Long term (current) use of insulin; Z88.8 Allergy status to other drugs, medicaments and biological substances; Z79.82 Long term (current) use of aspirin; Z79.84 Long term (current) use of oral hypoglycemic drugs; Z99.89 Dependence on other enabling machines and devices; Z79.52 Long term (current) use of systemic steroids; Z79.899 Other long term (current) drug therapy; Z91.048 Other nonmedicinal substance allergy status; Z87.891 Personal history of nicotine dependence
CPT/HCPCS: 36415; 71045; 80048; 80053; 80061; 80069; 81001; 82805; 82947; 83605; 83735; 83880; 84145; 84484; 85025; 85610; 85730; 87040; 93005; 94640; 94660; 94760; 96365; 96366; 99285; C9113; J0696; J1100; J1650; J1815; J1940; J7040; J7050; J7512; J7605; J7613; J7644

== ENCOUNTER 2023-08-14 15:42 | Inpatient (IN) | payer OTHER ==
--- OUTSIDE RECORDS SUMMARY | 2023-08-14 15:52 | XMS REPORT | Continuity of Care Document ---
:1975 Author Organization [facility] t Address [address] [facility] [address] [place] [id number] Care Team Providers Name Role Phone GC_BAHC_Todd_J Attending Clinician Unavailable KNOW, DOES_NOT Attending Clinician Unavailable UNKNOWN Attending Clinician Unavailable Jojo Villalpando Attending Clinician [phone] Dennis Talley Attending Clinician [phone] GC_BAHC_Spangler_G Attending Clinician Unavailable PILAR GOMEZ Attending Clinician Unavailable DO ELENA DOUGLAS Attending Clinician Unavailable DR VELMA COREY Attending Clinician Unavailable DR TIM GRESHAM Attending Clinician Unavailable JUSTO DICK Attending Clinician Unavailable GC_BAHC_Todd_J Admitting Clinician Unavailable GC_BAHC_Spangler_G Admitting Clinician Unavailable PILAR GOMEZ Admitting Clinician Unavailable DO ELENA DOUGLAS Admitting Clinician Unavailable DR VELMA COREY Admitting Clinician Unavailable DR TIM GRESHAM Admitting Clinician Unavailable JUSTO DICK Admitting Clinician Unavailable LAUREN PRESTON Admitting Clinician Unavailable Payers Payer Name Policy Type Policy Number Effective Date Expiration Date [facility] - [id number] [place] [id number] [place] Problems Condition Condition Condition Status Onset Resolution [...] Type 2 Problem Active [facility] diabetes Diabetes 25 Medica l mellitus Mellitus 00:00: with with [...] Problem Active [facility] 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 Clinician (SIG) Name Name ergocalcife ergocalcife No ergocalcif [facility] (vitamin (vitamin (vitamin D2) 1,250 [...] skin TID Jeri Jeri No 1 Q1D Ejri [facility] Allergy 180 Allergy 180 Allergy Medical [...] mg tablet ergocalcife ergocalcife No ergocalcif [facility] (vitamin (vitamin (vitamin D2) 1,250 D2) 1,250 [...] Q6H ipratropiu [facility] bromide bromide m bromide [facility] 0.02 % 0.02 % 0.02 % solution [...] route. every day by subcutaneo us route. Albuterol Albuterol Yes [address] [facility] HFA Inhaler HFA Inhaler every 6 [facility] 90 90 hours as [facility] mcg/actuati mcg/actuati needed. l on on (as needed (LUF/LI for V/SA) shortness of breath or wheezing) lisinopril lisinopril No lisinopril [facility] 5 mg [...] days. 30 days. bedtime for 30 days. aripiprazol aripiprazol Yes 10mg 1xD orally [facility] e 10 MG e 10 MG daily [facility] Oral Tablet Oral Tablet M emoria l (LUF/LI V/SA) aspirin 81 aspirin 81 [...] 30 days. 30 days. for 30 days. Aspirin Aspirin Yes 81mg 1xD orally [facility] daily [facility] (LUF/LI V/SA) ipratropium ipratropium No 2.5mL Q6H ipratropiu [facility] [...] a route. route. day by oral route. atorvastati atorvastati Yes 40mg 1xD orally [facility] n 40 MG n 40 MG daily [facility] Oral Tablet Oral Tablet M emoria l (LUF/LI V/SA) zinc oxide zinc oxide [...] 2xD inhaled [address] [facility] times per Lu day [facility] l (LU/LI V/SA) metformin metformin No 1 BID metformin [facility] [...] Capsule Capsule day [facility] l (LUF/LI V/SA) benztropine benztropine No 1mg Q1D benztropin [facility] [...] a route. route. day by oral route. lasix lasix Yes [address] [facility] zinc oxide zinc oxide No 1applic Q8H [...] 30 days. 30 days. for 30 days. Lisinopril Lisinopril Yes 5mg 1xD orally [facility] 5 MG Oral 5 MG Oral daily [facility] Tablet Tablet [facility] l (LUF/LI V/SA) lisinopril lisinopril No lisinopril [facility] 5 mg [...] aspirin 81 [facility] mg mg mg Medical tablet,kti tablet,kit tablet,del yed release yed release ayed Take 1 Take 1 release tablet tablet Take 1 every day every day tablet by oral by oral every day route. route. by oral route. Metformin Metformin Yes 500mg 2xD orally [address] [facility] hydrochlori hydrochlori times per [facility] de 500 MG de 500 MG day Mem[facility] ia Oral Tablet Oral Tablet l (LUF/LI V/SA) atorvastati atorvastati No atorvastat [facility] n 40 [...] by needed. needed. inhalation route as needed. predniSONE predniSONE Yes [address] [facility] 10 mg 10 [facility] (2 pills a l day for 1 (LUF/LI day then 1 V/SA) pill a day for 1 day then 1/2 pill a day for 1 day and then stop) sertraline sertraline No sertraline [facility] 100 mg [...] aspirin 81 [facility] mg mg mg Medical tablet,ikt tablet,kit tablet,del yed release yed release ayed [...] Q6H ipratropiu [facility] bromide bromide m bromide [facility] jack 0.02 % 0.02 % 0.02 % [...] Q6H ipratropiu [facility] bromide bromide m bromide [facility] jack 0.02 % 0.02 % 0.02 % [...] tablet ergocalcife ergocalcife No [facility]ocalcif [facility] (vitamin (vitamin (vitamin D2) 1,250 D2) [...] mg tablet mg tablet 100 mg tablet Vital Signs Vital Name Observation Time Observation Value Comments Source BP Diastolic 2023-02-21 00:00:00 63 mm[Hg] [facility] Height 2023-02-21 00:00:00 66 [in_i] [facility] BMI (Body Mass Index) 2023-02-21 00:00:00 [facility]5 [facility] 2023-02-21 00:00:00 118 mm[Hg] [facility] Body Weight 2023-02-21 00:00:00 7588 [oz_av] [facility] BP Diastolic 2023-02-07 00:00:00 74 mm[Hg] [facility] Height 2023-02-07 00:00:00 66 [in_i] [facility] BMI (Body Mass Index) 2023-02-07 00:00:00 76.5 kg[facility]m2 [facility] Systolic 2023-02-07 00:00:00 128 mm[Hg] [facility] Body Weight 2023-02-07 00:00:00 7588 [oz_av] [facility] BP Diastolic 2023-01-31 00:00:00 79 mm[Hg] [facility] Height 2023-01-31 00:00:00 66 [in_i] [facility] BMI (Body Mass Index) 2023-01-31 00:00:00 76.5 kg/m2 [facility] BP Systolic 2023-01-31 00:00:00 134 mm[Hg] [facility] Body Weight 2023-01-31 00:00:00 7584 [oz_av] [facility] BP Diastolic 2023-01-18 00:00:00 64 mm[Hg] [facility] Height 2023-01-18 00:00:00 66 [in_i] [facility] BMI (Body Mass Index) 2023-01-18 00:00:00 77.8 kg/m2 [facility] BP Systolic 2023-01-18 00:00:00 124 mm[Hg] [facility] Body Weight 2023-01-18 00:00:00 7712 [oz_av] [facility] BP Diastolic 2022-12-14 00:00:00 71 mm[Hg] [facility] Height 2022-12-14 00:00:00 66 [in_i] [facility] BMI (Body Mass Index) 2022-12-14 00:00:00 77.8 kg/m2 [facility] BP Systolic 2022-12-14 00:00:00 130 mm[Hg] [facility] Body Weight 2022-12-14 00:00:00 7712 [oz_av] [facility] BP Diastolic 2022-12-09 00:00:00 62.99 mm[Hg] [facility] Height 2022-12-09 00:00:00 66 [in_i] [facility] BMI (Body Mass Index) 2022-12-09 00:00:00 77.8 kg/m2 [facility] BP Systolic 2022-12-09 00:00:00 121 mm[Hg] [facility] Body Weight 2022-12-09 00:00:00 7712 [oz_av] [facility] BP Diastolic 2022-10-26 00:00:00 68 mm[Hg] [facility] Height 2022-10-26 00:00:00 66 [in_i] [facility] BMI (Body Mass Index) 2022-10-26 00:00:00 79.4 kg/m2 [facility] BP Systolic 2022-10-26 00:00:00 113 mm[Hg] [facility] Body Weight 2022-10-26 00:00:00 7872 [oz_av] [facility] BP Diastolic 2022-10-25 00:00:00 76 mm[Hg] [facility] Height 2022-10-25 00:00:00 66 [in_i] [facility] BMI (Body Mass Index) 2022-10-25 00:00:00 81.4 kg/m2 [facility] BP Systolic 2022-10-25 00:00:00 121 mm[Hg] [facility] Body Weight 2022-10-25 00:00:00 8066 [oz_av] [facility] BP Diastolic 2022-08-23 00:00:00 64 mm[Hg] [facility] Height 2022-08-23 00:00:00 66 [in_i] [facility] BMI (Body Mass Index) 2022-08-23 00:00:00 81.2 kg/m2 [facility] BP Systolic 2022-08-23 00:00:00 110 mm[Hg] [facility] Body Weight 2022-08-23 00:00:00 8048 [oz_av] [facility] BP Diastolic 2022-08-05 00:00:00 78 mm[Hg] [facility] Height 2022-08-05 00:00:00 66 [in_i] [facility] BMI (Body Mass Index) 2022-08-05 00:00:00 81.9 kg/m2 [facility] BP Systolic 2022-08-05 00:00:00 125 mm[Hg] [facility] Body Weight 2022-08-05 00:00:00 8114 [oz_av] [facility] BP Diastolic 2022-07-05 00:00:00 74 mm[Hg] [facility] Height 2022-07-05 00:00:00 66 [in_i] [facility] BMI (Body Mass Index) 2022-07-05 00:00:00 82.4 kg/m2 [facility] BP Systolic 2022-07-05 00:00:00 135 mm[Hg] [facility] Body Weight 2022-07-05 00:00:00 8168 [oz_av] [facility] BP Diastolic 2022-07-04 00:00:00 71 mm[Hg] [facility] Height 2022-07-04 00:00:00 66 [in_i] [facility] BMI (Body Mass Index) 2022-07-04 00:00:00 82.4 kg/m2 [facility] BP Systolic 2022-07-04 00:00:00 136 mm[Hg] [facility] Body Weight 2022-07-04 00:00:00 8168 [oz_av] [facility] BP Diastolic 2022-05-24 00:00:00 67 mm[Hg] [facility] Height 2022-05-24 00:00:00 66 [in_i] [facility] BMI (Body Mass Index) 2022-05-24 00:00:00 82.4 kg/m2 [facility] BP Systolic 2022-05-24 00:00:00 119 mm[Hg] [facility] Body Weight 2022-05-24 00:00:00 8168 [oz_av] [facility] BP Diastolic 2022-05-12 00:00:00 81 mm[Hg] [facility] Height 2022-05-12 00:00:00 66 [in_i] [facility] BMI (Body Mass Index) 2022-05-12 00:00:00 82.4 kg/m2 [facility] BP Systolic 2022-05-12 00:00:00 118 mm[Hg] [facility] Body Weight 2022-05-12 00:00:00 8168 [oz_av] [facility] BP Diastolic 2022-04-26 00:00:00 70 mm[Hg] [facility] Height 2022-04-26 00:00:00 66 [in_i] [facility] BMI (Body Mass Index) 2022-04-26 00:00:00 82.4 kg/m2 [facility] BP Systolic 2022-04-26 00:00:00 110 mm[Hg] [facility] Body Weight 2022-04-26 00:00:00 8168 [oz_av] [facility] BP Diastolic 2022-04-15 00:00:00 77 mm[Hg] [facility] Height 2022-04-15 00:00:00 66 [in_i] [facility] BMI (Body Mass Index) 2022-04-15 00:00:00 82.3 kg/m2 [facility] BP Systolic 2022-04-15 00:00:00 137 mm[Hg] [facility] Body Weight 2022-04-15 00:00:00 8160 [oz_av] [facility] BP Diastolic 2022-04-13 00:00:00 77 mm[Hg] [facility] Height 2022-04-13 00:00:00 66 [in_i] [facility] BMI (Body Mass Index) 2022-04-13 00:00:00 82.3 kg/m2 [facility] BP Systolic 2022-04-13 00:00:00 127 mm[Hg] [facility] Body Weight 2022-04-13 00:00:00 8160 [oz_av] [facility] BP Diastolic 2022-04-05 00:00:00 78 mm[Hg] [facility] Height 2022-04-05 00:00:00 66 [in_i] [facility] BMI (Body Mass Index) 2022-04-05 00:00:00 82.4 kg/m2 [facility] BP Systolic 2022-04-05 00:00:00 125 mm[Hg] [facility] Body Weight 2022-04-05 00:00:00 8168 [oz_av] [facility] BP Diastolic 2022-04-01 00:00:00 73 mm[Hg] [facility] Height 2022-04-01 00:00:00 66 [in_i] [facility] BMI (Body Mass Index) 2022-04-01 00:00:00 82.4 kg/m2 [facility] BP Systolic 2022-04-01 00:00:00 128 mm[Hg] [facility] Body Weight 2022-04-01 00:00:00 8168 [oz_av] [facility] BP Diastolic 2022-03-17 00:00:00 65 mm[Hg] [facility] Height 2022-03-17 00:00:00 66 [in_i] [facility] BMI (Body Mass Index) 2022-03-17 00:00:00 82.8 kg/m2 [facility] BP Systolic 2022-03-17 00:00:00 105 mm[Hg] [facility] Body Weight 2022-03-17 00:00:00 8210 [oz_av] [facility] BP Diastolic 2022-03-11 00:00:00 87 mm[Hg] [facility] Height 2022-03-11 00:00:00 66 [in_i] [facility] BMI (Body Mass Index) 2022-03-11 00:00:00 82.4 kg/m2 [facility] BP Systolic 2022-03-11 00:00:00 131 mm[Hg] [facility] Body Weight 2022-03-11 00:00:00 8168 [oz_av] [facility] BP Diastolic 2022-02-15 00:00:00 60 mm[Hg] [facility] Height 2022-02-15 00:00:00 66 [in_i] [facility] BMI (Body Mass Index) 2022-02-15 00:00:00 82.2 kg/m2 [facility] BP Systolic 2022-02-15 00:00:00 121 mm[Hg] [facility] Body Weight 2022-02-15 00:00:00 8148 [oz_av] [facility] BP Diastolic 2022-01-27 00:00:00 63 mm[Hg] [facility] Height 2022-01-27 00:00:00 66 [in_i] [facility] BMI (Body Mass Index) 2022-01-27 00:00:00 82.2 kg/m2 [facility] BP Systolic 2022-01-27 00:00:00 112 mm[Hg] [facility] Body Weight 2022-01-27 00:00:00 8150 [oz_av] [facility] BP Diastolic 2022-01-25 00:00:00 61 mm[Hg] [facility] Height 2022-01-25 00:00:00 66 [in_i] [facility] BMI (Body Mass Index) 2022-01-25 00:00:00 82.2 kg/m2 [facility] BP Systolic 2022-01-25 00:00:00 100 [facility]Hg[facility] 2022-01-25 00:00:00 8150.4 [oz_av] [facility] Height 2020-02-27 12:35:00 167.64 CM Weight 2020-02-27 12:35:00 269.43 KG Body Temperature 2020-02-27 12:35:00 98 [degF] [facility] (LUF/JOHNSON/SA) Pulse Rate 2020-02-27 12:35:00 94 /min [facility] (LUF/JOHNSON/SA) Respiratory Rate 2020-02-27 12:35:00 18 /min [facility] (LUF/J[place]NSON/SA) O2% BldC Oximetry 2020-02-27 12:35:00 97 % [facility] (LUF/J[place]NSON/SA) BP Systolic 2020-02-27 12:35:00 124 mm[Hg] [facility] (LUF/JOHNSON/SA) BP Diastolic 2020-02-27 12:35:00 80 mm[Hg] [facility] (LUF/JOHNSON/SA) Height 2020-02-27 12:35:00 66 [in_i] [facility] (LUF/JOHNSON/SA) Weight 2020-02-27 12:35:00 594 [lb_av] [facility] (LUF/JOHNSON/SA) BMI (Body Mass Index) 2020-02-27 12:35:00 96.6 kg/m2 [facility] (LUF/[place]NSON/SA) Pulse Rate 2020-01-31 15:21:00 91 /min [facility] (LUF/J[place]NSON/SA) Respiratory Rate 2020-01-31 15:21:00 17 /min [facility] (LUF/J[place]ON/SA) O2% BldC Oximetry 2020-01-31 15:21:00 93 % [facility] (LUF/[place]ON/SA) BP Systolic 2020-01-31 12:34:00 126 mm[Hg] [facility] (LUF/J[place]NSON/SA) BP Diastolic 2020-01-31 12:34:00 72 mm[Hg] [facility] (LUF/J[place]NSON/SA) Body Temperature 2020-01-31 12:30:00 96.2 [degF] [facility] (LUF/[place]ON/SA) Weight 2020-01-31 05:13:00 241 kg [facility] (LUF/JOHNSON/SA) Height 2020-01-26 04:45:00 69 [in_i] [facility] (LUF/J[place]ON/SA) Body Temperature 2020-01-04 18:00:00 98 [degF] [facility] (LUF/[place]ON/SA) Pulse Rate 2020-01-04 18:00:00 70 /min [facility] (LUF/J[place]NSON/SA) Respiratory Rate 2020-01-04 18:00:00 17 /min [facility] (LUF/[place]ON/SA) O2% BldC Oximetry 2020-01-04 18:00:00 98 % [facility] (LUF/[place]ON/SA) BP Systolic 2020-01-04 18:00:00 93 mm[Hg] [facility] (LUF/J[place]NSON/SA) BP Diastolic 2020-01-04 18:00:00 53 mm[Hg] [facility] (LUF/J[place]NSON/SA) Height 2020-01-04 13:35:00 69 [in_i] [facility] (LUF/[place]ON/SA) Weight 2020-01-04 13:35:00 500 [lb_av] [facility] (LUF/[place]ON/SA) BMI (Body Mass Index) 2020-01-04 13:35:00 74 kg/m2 [facility] (LUF/[place]/SA) Pulse Rate 2019-11-26 16:18:00 79 /min [facility] (LUF/J[place]NSON/SA) Respiratory Rate 2019-11-26 16:18:00 19 /min [facility] (LUF/[place]/SA) O2% BldC Oximetry 2019-11-26 16:18:00 97 % [facility] (LUF/[place]/SA) BP Systolic 2019-11-26 16:18:00 104 mm[Hg] [facility] (LUF/[place]ON/SA) BP Diastolic 2019-11-26 16:18:00 69 mm[Hg] [facility] (LUF/[place]/SA) Body Temperature 2019-11-26 14:09:00 98.9 [degF] [facility] (LUF/[place]ON/SA) Height 2019-11-26 14:09:00 69 [in_i] [facility] (LUF/[place]ON/SA) Weight 2019-11-26 14:09:00 227 kg [facility] (LUF/[place]ON/SA) BMI (Body Mass Index) 2019-11-26 14:09:00 74.1 kg/m2 [facility] (LUF/[place]ON/SA) Respiratory Rate 2017-09-15 17:59:00 19 /min [facility] (LUF/[place]ON/SA) BP Systolic 2017-09-15 17:59:00 139 mm[Hg] [facility] (LUF/J[place]ON/SA) BP Diastolic 2017-09-15 17:59:00 85 mm[Hg] [facility] (LUF/J[place]NSON/SA) Body Temperature 2017-09-15 16:28:00 98.6 F [facility] (LUF/[place]ON/SA) O2% BldC Oximetry 2017-09-15 16:28:00 95 % [facility] (LUF/[place]ON/SA) Height 2017-09-15 16:28:00 69 in [facility] (LUF/[place]ON/SA) Weight Measured 2017-09-15 16:28:00 405 lbs [facility] BMI (Body Mass Index) 2017-09-15 16:28:00 59.9 [facility] (LUF/[place]ON/SA) Procedures Procedure Date / Time Performing Clinician Source Performed ASST W/RESP VENT CON 2020-01-26 00:00:[address] [facility] HR CPAP [facility] (LUF/[place]/SA) Tubal Ligation [facility] Cholecystostomy [facility] Encounters Start End Encounter Admission Attending Care Care Encounter Source Date/Time Date/Time Type Type Clinicians Facility Department ID 2023-08-05 2023-08-05 Outpatient [facility]_Tod PRIV PRIV [id number] [facility] 00:00:00 00:00:00 d_J [id number] Medica l 2023-08-04 2023-08-04 Outpatient [facility]_Tod PRIV PRIV [id number] [facility] 00:00:00 00:00:00 d_J [id number] Medica l 2023-08-03 2023-08-03 Outpatient [facility]_Tod PRIV PRIV [id number] [facility] 00:00:00 00:00:00 d_J [id number] Medica l 2023-07-31 2023-07-31 Outpatient [facility]_Tod PRIV PRIV [id number] [facility] 00:00:00 00:00:00 d_J [id number] Medica l 2023-07-27 2023-07-27 Outpatient [facility]_Tod PRIV PRIV [id number] [facility] 00:00:00 00:00:00 d_J [id number] Medica l 2023-07-25 2023-07-25 Outpatient [facility]_Tod PRIV PRIV [id number] [facility] 00:00:00 00:00:00 d_J [id number] Medica l 2023-07-19 2023-07-19 Outpatient [facility]_Tod PRIV PRIV [id number] [facility] 00:00:00 00:00:00 d_J [id number] Medica l 2023-07-08 2023-07-08 Outpatient [facility]_Tod PRIV PRIV [id number] [facility] 00:00:00 00:00:00 d_J [id number] Medica l 2023-07-05 2023-07-05 Outpatient [facility]_Tod PRIV PRIV [id number] [facility] 00:00:00 00:00:00 d_J [id number] Medica l 2023-06-30 2023-06-30 Outpatient [facility]_Tod PRIV PRIV [id number] [facility] 00:00:00 00:00:00 d_J [id number] Medica l 2023-06-26 2023-06-26 Outpatient [facility]_Tod PRIV PRIV [id number] [facility] 00:00:00 00:00:00 d_J [id number] Medica l 2023-06-26 2023-06-26 Outpatient [facility]_Tod PRIV PRIV [id number] [facility] 00:00:00 00:00:00 d_J [id number] Medica l 2023-06-24 2023-06-24 Outpatient [facility]_Tod PRIV PRIV [id number] [facility] 00:00:00 00:00:00 d_J [id number] Medica l 2023-06-16 2023-06-16 Outpatient [facility]_Tod PRIV PRIV [id number] [facility] 00:00:00 00:00:00 d_J [id number] Medica l 2023-06-12 2023-06-12 Outpatient [facility]_Tod PRIV PRIV [id number] [facility] 00:00:00 00:00:00 d_J [id number] Medica l 2023-06-10 2023-06-10 Outpatient [facility]_Tod PRIV PRIV [id number] [facility] 00:00:00 00:00:00 d_J [id number] Medica l 2023-06-05 2023-06-05 Outpatient [facility]_Tod PRIV PRIV [id number] [facility] 00:00:00 00:00:00 d_J [id number] Medica l 2023-05-24 2023-05-24 Outpatient GC_[facility]_Tod PRIV PRIV [id number] [facility] 00:00:00 00:00:00 d_J [id number] Medica l 2023-05-18 2023-05-18 Outpatient GC_BAHC_Tod PRIV PRIV [id number] [facility] 00:00:00 00:00:00 d_J [id number] Medica l 2023-05-17 2023-05-17 Outpatient GC_BAHC_Tod PRIV PRIV [id number] [facility] 00:00:00 00:00:00 d_J [id number] Medica l 2023-05-11 2023-05-11 Outpatient GC_BAHC_Tod PRIV PRIV [id number] [facility] 00:00:00 00:00:00 d_J [id number] Medica l 2023-05-09 2023-05-09 Outpatient [facility]_Tod PRIV PRIV [id number] [facility] 00:00:00 00:00:00 d_J [id number] Medica l 2023-05-05 2023-05-05 Outpatient GC_[facility]_Tod PRIV PRIV [id number] [facility] 00:00:00 00:00:00 d_J [id number] Medica l 2023-05-03 2023-05-03 Outpatient [facility]_Tod PRIV PRIV [id number] [facility] 00:00:00 00:00:00 d_J [id number] Medica l 2023-04-25 2023-04-25 Outpatient [facility]_Tod PRIV PRIV [id number] [facility] 00:00:00 00:00:00 d_J [id number] Medica l 2023-04-25 2023-04-25 Outpatient GC_BAHC_Tod PRIV PRIV [id number] [facility] 00:00:00 00:00:00 d_J [id number] Medica l 2023-04-25 2023-04-25 Outpatient [facility]_BA[facility]_Tod PRIV PRIV [id number] [facility] 00:00:00 00:00:00 d_J [id number] Medica l 2023-04-25 2023-04-25 Outpatient GC_[facility]_Tod PRIV PRIV [id number] [facility] 00:00:00 00:00:00 d_J [id number] Medica l 2023-04-20 2023-04-20 Outpatient [facility]_BA[facility]_Tod PRIV PRIV [id number] [facility] 00:00:00 00:00:00 d_J [id number] Medica l 2023-04-17 2023-04-17 Outpatient [facility]_Tod PRIV PRIV [id number] [facility] 00:00:00 00:00:00 d_J [id number] Medica l 2023-04-10 2023-04-10 Outpatient GC_BAHC_Tod PRIV PRIV [id number] [facility] 00:00:00 00:00:00 d_J [id number] Medica l 2023-04-07 2023-04-07 Outpatient [facility]_Tod PRIV PRIV [id number] [facility] 00:00:00 00:00:00 d_J [id number] Medica l 2023-03-29 2023-03-29 Outpatient GC_BAHC_Tod PRIV PRIV [id number] [facility] 00:00:00 00:00:00 d_J [id number] Medica l 2023-03-29 2023-03-29 Outpatient GC_BAHC_Tod PRIV PRIV [id number] [facility] 00:00:00 00:00:00 d_J [id number] Medica l 2023-03-29 2023-03-29 Outpatient GC_BAHC_Tod PRIV PRIV [id number] [facility] 00:00:00 00:00:00 d_J [id number] Medica l 2023-03-28 2023-03-28 Outpatient GC_BAHC_Tod PRIV PRIV [id number] [facility] 00:00:00 00:00:00 d_J [id number] Medica l 2023-03-28 2023-03-28 Outpatient GC_BAHC_Tod PRIV PRIV [id number] [facility] 00:00:00 00:00:00 d_J [id number] Medica l 2023-03-22 2023-03-22 Outpatient GC_BAHC_Tod PRIV PRIV [id number] [facility] 00:00:00 00:00:00 d_J [id number] Medica l 2023-03-22 2023-03-22 Outpatient [facility]_Tod PRIV PRIV 239 [id number] [facility] 00:00:00 00:00:00 d_J [id number] Medica l 2023-03-21 2023-03-21 Outpatient [facility]_Tod PRIV PRIV 239 [id number] [facility] 00:00:00 00:00:00 d_J [id number] Medica l 2023-03-02 2023-03-02 Outpatient [facility]_Tod PRIV PRIV 239 [id number] [facility] 00:00:00 00:00:00 d_J [id number] Medica l 2023-02-21 2023-02-21 Dennis Santos [facility] [id number] [facility] 00:00:00 00:00:00 [facility] Clif august MD: [address] [place] [address] , Ph. 2023-02-20 2023-02-20 Outpatient [facility]_Tod PRIV PRIV [id number] [facility] 00:00:00 00:00:00 d_J [id number] Medica l 2023-02-20 2023-02-20 Outpatient [facility]_Tod PRIV PRIV 239 [id number] [facility] 00:00:00 00:00:00 d_J [id number] Medica l 2023-02-20 2023-02-20 Outpatient [facility]_Tod PRIV PRIV [id number] [facility] 00:00:00 00:00:00 d_J [id number] Medica l 2023-02-07 2023-02-07 [facility] [id number] [facility] 00:00:00 00:00:00 RUPINDER Villalpando: Health - Med ical [address] [place] [address] , Ph. 2023-02-02 2023-02-02 Outpatient [facility]_Tod PRIV PRIV [id number] [facility] 00:00:00 00:00:00 d_J [id number] Medica l 2023-01-31 2023-01-31 [facility]joo [facility] [id number] [facility] 00:00:00 00:00:00 RUPINDER Villalpando: Health - Med ical [address] [place] [address] , Ph. 2023-01-18 2023-01-18 [facility] [id number] [facility] 00:00:00 00:00:00 RUPINDER Villalpando: Health - Med ical [address] [place] [address] , Ph. 2023-01-17 2023-01-17 Outpatient [facility]_Tod PRIV PRIV [id number] [facility] 00:00:00 00:00:00 d_J [id number] Medica l 2023-01-17 2023-01-17 Outpatient [facility]_Tod PRIV PRIV 239 [id number] [facility] 00:00:00 00:00:00 d_J [id number] Medica l 2023-01-17 2023-01-17 Outpatient [facility]_Tod PRIV PRIV 239 [id number] [facility] 00:00:00 00:00:00 d_J [id number] Medica l 2022-12-31 2022-12-31 Outpatient [facility]_Tod PRIV PRIV 239 [id number] [facility] 00:00:00 00:00:00 d_J [id number] Medica l 2022-12-16 2022-12-16 Outpatient [facility]_Tod PRIV PRIV 239 [id number] [facility] 00:00:00 00:00:00 d_J [id number] Medica l 2022-12-14 2022-12-14 [facility] 301 [facility] 00:00:00 00:00:00 RUPINDER Villalpando: Health - Med ical [address] [place] [address] , Ph. 2022-12-09 2022-12-09 Outpatient [facility]_Tod PRIV PRIV 239 [id number] [facility] 00:00:00 00:00:00 d_J [id number] Medica l 2022-12-09 2022-12-09 Outpatient [facility]_Tod PRIV PRIV 239 [id number] [facility] 00:00:00 00:00:00 d_J [id number] Medica l 2022-12-09 2022-12-09 [facility] [id number] [facility] 00:00:00 00:00:00 RUPINDER Villalpando: Health - Med ical [address] [place] [address] , Ph. 2022-11-15 2022-11-15 Outpatient [facility]_Tod PRIV PRIV 239 [id number] [facility] 00:00:00 00:00:00 d_J [id number] Medica l 2022-11-08 2022-11-08 Outpatient [facility]_Tod PRIV PRIV 239 [id number] [facility] 00:00:00 00:00:00 d_J [id number] Medica l 2022-11-07 2022-11-07 Outpatient [facility]_Tod PRIV PRIV 239 [id number] [facility] 00:00:00 00:00:00 d_J [id number] Medica l 2022-11-04 2022-11-04 Outpatient GC_[facility]_Tod PRIV PRIV 239 [id number] [facility] 00:00:00 00:00:00 d_J [id number] Medica l 2022-10-26 2022-10-26 Outpatient GC_[facility]_Tod PRIV PRIV 239 [id number] [facility] 00:00:00 00:00:00 d_J [id number] Medica l 2022-10-26 2022-10-26 Jojo [facility] [id number] [facility] 00:00:00 00:00:00 RUPINDER Villalpando: Health - Med ical [address] [place] [address] , Ph. 2022-10-25 2022-10-25 Outpatient GC_[facility]_Tod PRIV PRIV 239 [id number] [facility] 00:00:00 00:00:00 d_J [id number] Medica l 2022-10-25 2022-10-25 Outpatient [facility]_Tod PRIV PRIV 239 [id number] [facility] 00:00:00 00:00:00 d_J [id number] Medica l 2022-10-25 2022-10-25 Dennis Santos [facility] 202 [id number] [facility] 00:00:00 00:00:00 Gerri [facility] - Med ical MD: [address] [place] [address] , Ph. 2022-10-18 2022-10-18 Outpatient [facility]_Tod PRIV PRIV 239 [id number] [facility] 00:00:00 00:00:00 d_J [id number] Medica l 2022-09-02 2022-09-02 Outpatient GC_[facility]_Tod PRIV PRIV 239 [id number] [facility] 00:00:00 00:00:00 d_J [id number] Medica l 2022-09-01 2022-09-01 Outpatient GC_[facility]_Tod PRIV PRIV 239 [id number] [facility] 00:00:00 00:00:00 d_J [id number] Medica l 2022-08-23 2022-08-23 Jojo [facility] 108 [facility] 00:00:00 00:00:00 RUPINDER Villalpando: Health - Med ical [address] [place] [address] , Ph. 2022-08-21 2022-08-21 Outpatient GC_[facility]_Tod PRIV PRIV 239 [id number] [facility] 00:00:00 00:00:00 d_J [id number] Medica l 2022-08-19 2022-08-19 Outpatient [facility]_Tod PRIV PRIV 239 [id number] [facility] 00:00:00 00:00:00 d_J [id number] Medica l 2022-08-18 2022-08-18 Outpatient [facility]_Tod PRIV PRIV 239 [id number] [facility] 00:00:00 00:00:00 d_J [id number] Medica l 2022-08-16 2022-08-16 Outpatient [facility]_Tod PRIV PRIV 239 [id number] [facility] 00:00:00 00:00:00 d_J [id number] Medica l 2022-08-05 2022-08-05 Outpatient [facility]_Tod PRIV PRIV 239 [id number] [facility] 00:00:00 00:00:00 d_J [id number] Medica l 2022-08-05 2022-08-05 Jojo [facility] [id number] [facility] 00:00:00 00:00:00 RUPINDER Villalpando: Health - Med ical [address] [place] [address] , Ph. 2022-08-02 2022-08-02 Outpatient [facility]_Tod PRIV PRIV 239 [id number] [facility] 00:00:00 00:00:00 d_J [id number] Medica l 2022-07-29 2022-07-29 Outpatient [facility]_Tod PRIV PRIV 239 [id number] [facility] 00:00:00 00:00:00 d_J [id number] Medica l 2022-07-05 2022-07-05 Outpatient [facility]_Tod PRIV PRIV 239 [id number] [facility] 00:00:00 00:00:00 d_J [id number] Medica l 2022-07-05 2022-07-05 Jojo [facility] 920 [facility] 00:00:00 00:00:00 RUPINDER Villalpando: Health - Med ical [address] [place] [address] , Ph. 2022-07-04 2022-07-04 Dennis Santos [facility] 202 [id number] [facility] 00:00:00 00:00:00 Gerri [facility] - Med ical MD: [address] [place] [address] , Ph. 2022-06-22 2022-06-22 Outpatient GC_[facility]_Tod PRIV PRIV 239 [id number] [facility] 00:00:00 00:00:00 d_J [id number] Medica l 2022-06-02 2022-06-02 Outpatient GC_[facility]_Tod PRIV PRIV 239 [id number] [facility] 00:00:00 00:00:00 d_J [id number] Medica l 2022-05-24 2022-05-24 Outpatient [facility]_Tod PRIV PRIV 239 [id number] [facility] 00:00:00 00:00:00 d_J [id number] Medica l 2022-05-24 2022-05-24 Jojo [facility] [id number] [facility] 00:00:00 00:00:00 RUPINDER Villalpando: Health - Med ical [address] [place] [address] , Ph. 2022-05-24 2022-05-24 Outpatient Kwasi, PRIV PRIV [id number] 00:00:00 00:00:00 Jojo ef8-11ed-9 [id number] 2022-05-16 2022-05-16 Outpatient [facility]_Tod PRIV PRIV 239 [id number] [facility] 00:00:00 00:00:00 d_J [id number] Medica l 2022-05-12 2022-05-12 Outpatient [facility]_Tod PRIV PRIV 239 [id number] [facility] 00:00:00 00:00:00 d_J [id number] Medica l 2022-05-12 2022-05-12 Outpatient Gerri, PRIV PRIV [id number] 00:00:00 00:00:00 Dennis Santos [id number]-[id number] 2022-05-12 2022-05-12 Dennis Santos [facility] 202 [id number] [facility] 00:00:00 00:00:00 Gerri [facility] - Med ica MD: [address] [place] [address] , Ph. 2022-05-03 2022-05-03 Outpatient GC_[facility]_Tod PRIV PRIV 239 [id number] [facility] 11:55:00 11:55:00 d_J [id number] Medica l 2022-04-26 2022-04-26 Outpatient [facility]_Tod PRIV PRIV 239 [id number] [facility] 01:36:00 01:36:00 d_J [id number] Medica l 2022-04-26 2022-04-26 Outpatient Kwasi, PRIV PRIV [id number] 00:00:00 00:00:00 Jojo [id number]-[id number] 2022-04-26 2022-04-26 Jojo [facility] [id number] [facility] 00:00:00 00:00:00 RUPINDER Villalpando: Health - Med ical [address] [address] , Ph. 2022-04-24 2022-04-24 Outpatient GC_[facility]_Tod PRIV PRIV 239 [id number] [facility] 11:00:00 11:00:00 d_J [id number] Medica l 2022-04-22 2022-04-22 Outpatient [facility]_Tod PRIV PRIV 239 [id number] [facility] 10:51:00 10:51:00 d_J [id number] Medica l 2022-04-21 2022-04-21 Outpatient [facility]_Tod PRIV PRIV 239 [id number] [facility] 11:47:00 11:47:00 d_J [id number] Medica l 2022-04-15 2022-04-15 Outpatient [facility]_Tod PRIV PRIV 239 [id number] [facility] 04:12:00 04:12:00 d_J [id number] Medica l 2022-04-15 [facility]04-[facility] [id number] [facility] 00:00:00 00:00:00 RUPINDER Villalpando: Health - Med ical [address] [address] , Ph. 2022-04-15 2022-04-15 Outpatient Kwasi, PRIV PRIV [id number] [id number] 00:00:00 00:00:00 Jojo [id number] 2022-04-13 2022-04-13 Outpatient [facility]_Tod PRIV PRIV 239 [id number] [facility] 09:13:00 09:13:00 d_J [id number] Medica l 2022-04-13 2022-04-13 Outpatient Kwasi, PRIV PRIV [id number] 2-[id number] 00:00:00 00:00:00 Jojo df8-11ec-8 [id number] 2022-04-13 2022-04-13 Jojo [facility] [id number] [facility] 00:00:00 00:00:00 RUPINDER Villalpando: Health - Med ical [address] [address] , Ph. 2022-04-10 2022-04-10 Outpatient GC_[facility]_Tod PRIV PRIV 239 [id number] [facility] 10:44:00 10:44:00 d_J [id number] Medica l 2022-04-05 2022-04-05 Outpatient [facility]_Tod PRIV PRIV 239 [id number] [facility] 04:56:00 04:56:00 d_J [id number] Medica l 2022-04-05 2022-04-05 Jojo [facility] [id number] [facility] 00:00:00 00:00:00 RUPINDER Villalpando: Health - Med ical [address] [address] , Ph. 2022-04-05 2022-04-05 Outpatient Kwasi, PRIV PRIV [id number] e-[id number] 00:00:00 00:00:00 Jojo [id number] 2022-04-01 2022-04-01 Outpatient [facility]_Tod PRIV PRIV [id number] [facility] 06:30:00 06:30:00 d_J [id number] Medica l 2022-04-01 2022-04-01 Outpatient Kwasi, PRIV PRIV [id number] 00:00:00 00:00:00 Jojo [id number]-[id number] 2022-04-01 2022-04-01 Jojo [facility] [id number] [facility] 00:00:00 00:00:00 RUPINDER Villalpando: Health - Med ical [address] [address] , Ph. 2022-03-20 2022-03-20 Outpatient GC_[facility]_Tod PRIV PRIV [id number] [facility] 10:40:00 10:40:00 d_J [id number] Medica l 2022-03-19 2022-03-19 Outpatient [facility]_Tod PRIV PRIV 239 [id number] [facility] 10:41:00 10:41:00 d_J [id number] Medica l 2022-03-17 2022-03-17 Outpatient [facility]_Tod PRIV PRIV 239 [id number] [facility] 02:04:00 02:04:00 d_J [id number] Medica l 2022-03-17 2022-03-17 Outpatient Gerri [facility] PRIV [id number] c30-e 00:00:00 00:00:00 Dennis Tom [id number]-b [id number] 9627-06-02 2022-03-17 Dennis Santos [facility] 202 [facility] 00:00:00 00:00:00 Gerri [facility] - Med ical MD: [address] [place] [address] , Ph. 2022-03-11 2022-03-11 Outpatient [facility]_Tod PRIV PRIV 239 [id number] [facility] 12:36:00 12:36:00 d_J [id number] Medica l 2022-03-11 2022-03-11 Outpatient Kwasi PRIV PRIV [id number] e-[id number] 00:00:00 00:00:00 Jojo [id number] 2022-03-11 2022-03-11 [facility] 527 [facility] 00:00:00 00:00:00 RUPINDER Villalpando: Health - Med ical [address] [place] [address] , Ph. 2022-02-23 2022-02-23 Outpatient GC_[facility]_Tod PRIV PRIV 239 [id number] [facility] 10:53:00 10:53:00 d_J [id number] Medica l 2022-02-15 2022-02-15 Outpatient [facility]_Tod PRIV PRIV 239 [id number] [facility] 07:51:00 07:51:00 d_J [id number] Medica l 2022-02-15 2022-02-15 Outpatient Kwasi, PRIV PRIV [id number] [id number] 00:00:00 00:00:00 Jojo 14e-11ec-a [id number] 2022-02-15 2022-02-15 Jojo [facility] [id number] [facility] 00:00:00 00:00:00 RUPINDER Villalpando: Health - Med ica [address] [place] [address] , Ph. 2022-02-11 2022-02-11 Outpatient GC_[facility]_Tod PRIV PRIV 239 [id number] [facility] 08:21:00 08:21:00 d_J [id number] Medica l 2022-02-08 2022-02-08 Outpatient [facility]_Tod PRIV PRIV 239 [id number] [facility] 08:40:00 08:40:00 d_J [id number] Medica l 2022-02-03 2022-02-03 Outpatient GC_[facility]_Tod PRIV PRIV 239 [id number] [facility] 01:01:00 01:01:00 d_J [id number] Medica l 2022-02-02 2022-02-02 Outpatient GC_[facility]_Tod PRIV PRIV 239 [id number] [facility] 12:52:00 12:52:00 d_J [id number] Medica l 2022-02-01 2022-02-01 Outpatient [facility]_Tod PRIV PRIV 239 [id number] [facility] 09:12:00 09:12:00 d_J [id number] Medica l 2022-01-27 2022-01-27 Outpatient [facility]_Tod PRIV PRIV 239 [id number] [facility] 11:30:00 11:30:00 d_J [id number] Medica l 2022-01-27 2022-01-27 Outpatient Gerri, PRIV PRIV [id number]-[id number] 00:00:00 00:00:00 Dennisluz maria Santos [id number]-m [id number] 2022-01-27 2022-01-27 Dennis Santos [facility] 202 [id number] [facility]:00[facility]00 [facility] [address] [facility] [place] [address] , Ph. 2022-01-27 2022-01-27 Outpatient Gerri, PRIV PRIV [id number] 00:00:00 00:00:00 Dennisluz maria Mcgeene [id number]-5 [id number] 2022-01-25 2022-01-25 Outpatient GC_BAHC_Tod PRIV PRIV [id number] [facility] 02:06:00 02:06:00 Queta [id number] Medica l 2022-01-25 2022-01-25 Outpatient Kwasi, PRIV PRIV [id number] [id number] 00:00:00 00:00:00 Jojo [id number] 2022-01-25 2022-01-25 Jojo [facility] [id number] [facility] 00:00:00 00:00:00 RUPINDER Villalpando: [facility] Med ical [address] , [place] [address] , Ph. 2022-01-25 2022-01-25 Outpatient Kwasi, PRIV PRIV [id number] [id number] 00:00:00 00:00:00 Jojo ed3-11ec-9 [id number] 2022-01-24 2022-01-24 Outpatient GC_BAHC_Tod PRIV PRIV [id number] [facility] 03:10:00 03:10:00 d_J [id number] Medica l 2022-01-21 2022-01-21 Outpatient GC_BAHC_Spa PRIV PRIV [id number] [facility] 05:16:00 05:16:00 virgie_[facility] [id number] Medica l 2020-02-27 2020-02-[id number] 12:33[facility] 14:29:00 SYMPTOMS DEEJAY Bond SIGNS N, [address] BY[address], ([place] [address] 2020-01-26 2020-01-31 HTN HEART E PILAR GOMEZ [facility] [id number] 03:15:00 15:55:00 DISEASE DEEJAY VALLADARES L ukes W/HEART N, [address], (LUF[place] [address] 2020-01-04 2020-01-04 Inpatient [place] [id number] 22:01:00 23:59:00 [facility] [address] (LUF/[address], V/[place]) [place] [address] 2020-01-04 2020-01-04 CELLULITIS E STELLA, [facility] [id number] 13:30:00 18:53:00 OF LEFT ELENA VALLADARES L ukes LOWER LIMB N, [address], (LUF[place] [address] 2019-11-26 2019-11-26 VENOUS 1 LEORA, [facility] [id number] 14:08:00 17:30:00 INSUFF VELMA VALLADARES L ukes CHRONIC N, [address], (LUF[place] [address] 2018-11-15 2018-11-15 SHORTNESS 3 BALAKRISHNA [facility] [id number] [facility] 14:59:00 23:59:00 [facility]ATH , [facility] [address], V/SA) [facility] [address] 2018-06-08 2018-06-08 COPD 3 MAYELIN, [facility] [id number] [facility] 11:43:00 23:59:00 UNSPECIFIE JUSTO Bond D N, [address], (LUF[place] [address] 2017-09-16 2017-09-16 Inpatient DE ANDA, [facility] [id number] 00:36:00 23:59:00 GANESH ESTRELLA [facility], [facility] [address] ([address]F/[address], V/SA) [place] [address] 2017-09-15 2017-09-15 CELLULITIS E MOHAN, [facility] [id number] 16:11:00 19:30:00 OF RIGHT LAUREN Bond LOWER LIMB N, [address], (LUF/[place] [address] Results Test Description Test Time Test Comments Results Result Comments Source BASIC METABOLIC PANEL 2023-05-22 09:54:00 Test Item Value Reference Range Interpretation Comme nts SODIUM (test code = NA) 137 mmol/L 135-145 N POTASSIUM (test code = K) 3.7 mmol/L 3.6-5.0 N CHLORIDE (test code = CL) 91 mmol/L 101-111 L CARBON DIOXIDE (test code 36 mmol/L 21-31 H = CO2) GLUCOSE (test code = GLU) 173 mg/dl 70-100 H BLOOD UREA NITROGEN (test 7 mg/dl 6-20 N code = BUN) GLOMERULAR FILTRATION >=60 max estimate >60 T he Glomerular Filtration RATE (test code = GFR) Rate is a calculated parameterbased on serum Creatinine, pat ient age and sex. GFR values less than 60 mL/min/1.73 squ are meters are indicative ofChronic Kidney Disease. Values less than 15 mL/min/ 1.73square meters indicate Kidney failure. The ca lculation forGFR is based on the CKD-EPI (2020) calculation. This formulais race indifferent and is the recommended for anuradha for GFRby the [facility] Kidney Foundation for Adults.The GFR will not ca lculate if the sex is unkn own or if thepatient's ag e is <18 years. CREATININE (test code = 0.73 mg/dL 0.44-1.03 N CREAT) CALCIUM (test code = CA) 8.8 mg/dL 8.5-10.5 N INDEX HEMOLYSIS (test 0 Index/DL See_Comment [Auto mated message] The code = HEMINDEX) system [facility] [employer] Software generated this result transmit bambi reference range: 1 NORMAL . The reference range was not used to interpret th is result as normal/abnormal . INDEX ICTERIC (test code 1 Index/DL See_Comment [A utomated message] The = ICTINDEX) system which nerated this result transmit bambi reference range: 1 NORMAL . The reference range was not used to interpret th is result as normal/abnormal . INDEX LIPEMIA (test code 0 Index/DL See_Comment [A utomated message] The = LIPINDEX) system which [employer] nerated this result transmit bambi reference range: 1 NORMAL . The reference range was not used to interpret th is result as normal/abnormal . BASIC METABOLIC [id number] 00:56:00 Test Item Value Reference Range Interpretation Comments SODIUM (test code 136 mmol/L 135-145 N = NA) POTASSIUM (test 4.5 mmol/L 3.6-5.0 N code = K) CHLORIDE (test 87 mmol/L 101-111 L code = CL) CARBON DIOXIDE 41 mmol/L 21-31 H (test code = CO2) GLUCOSE (test code 228 mg/dl 70-100 H = GLU) BLOOD UREA 9 mg/dl 6-20 N NITROGEN (test code = BUN) GLOMERULAR >=60 max >60 The Glomerular FILTRATION RATE estimate Filtration R ate is a (test code = GFR) calculated parameterbased on serum Creatinin e, patient age and sex. GFR valuesless than 60 mL/min/1.73 square meters are cordell cative ofChronic Kidne y Disease. Values less than 15 mL/min/1.73squa re meters indicate Kidney failure. The calculation for GFR is based on the CK D-EPI (2020) calculat ion. This formulais race indifferent and is the recommended formula for GFR by the National Kidney Foundation for Adults.The GFR will not calculate i f the sex is unknown or if thepatient's ag e is <18 years. CREATININE (test 0.55 mg/dL 0.44-1.03 N code = CREAT) CALCIUM (test code 8.9 mg/dL 8.5-10.5 N = CA) CBC W/AUTO [id number] 00:45:00 Test Item Value Reference Range Interpretation [...] 0.0 x10 3/uL 0.0-0.1 N BASIC METABOLIC [id number] 23:08:00 Test Item Value Reference Range Interpretation [...] code 8.9 mg/dL 8.5-10.5 N = CA) [id number] 22:59:00 Test Item Value Reference Range Interpretation Comments AMMONIA (test code = AMM) 67 umol/L 11-35 H CBC W/AUTO [id number] 22:44:00 Test Item Value Reference Range Interpretation [...] Cholesterol in LDL [Mass/volume] in Serum or [id number] 00:00:00 Test Item Value Reference Range Interpretation Comments Cholesterol in LDL [Mass/volume] in 55 Serum or Plasma (test code = 2089-1) [facility] Medical[facility]olesterol in LDL [Mass/volume] in Serum or [id number] 00:00:00 Test Item Value Reference Range Interpretation Comments Cholesterol in LDL [Mass/volume] in 55 Serum or Plasma (test code = 2089-1) [facility] MedicalCholesterol in LDL [Mass/volume] in Serum or [id number] 00:00:00 Test Item Value Reference Range Interpretation Comments Cholesterol in LDL [Mass/volume] in 55 Serum or Plasma (test code = 2089-1) [facility] MedicalCULTURE, [id number] 10:36:00Specimen: BloodCollected: 01/25/2020 23:40 Status: Final Last Updated: 01/31/2020 10:36 Culture Result (Final) (Final) No Growth After 5 Days[facility] CenterCUWENDI, [place] [id number] 10:36:00Specimen: BloodCollected: 01/25/2020 23:40 Status: Final Last Updated: 01/31/2020 10:36 Culture Result (Final) (Final) No [facility] IncP2020-04-16 12:41:00 Test Item Value Reference Range Interpretation [...] mg/dl 8.4-10.2 = CALC) EGFR if >60 [place] (test code mL/min/1.73m\\ = EGFRAA) S\\2 EGFR if Non- >60 Estimate d Glomerular [place] (test code mL/min/1.73m\\ Filtrat ion Rate (eGFR) [...] and management of c hronic kidney failure. [facility]P2020-04-15 10:36:00 Test Item Value Reference Range Interpretation [...] mg/dl 8.4-10.2 = CALC) EGFR if >60 [place] (test code mL/min/1.73m\\ = EGFRAA) S\\2 EGFR if Non- >60 Estimate d Glomerular [place] (test code mL/min/1.73m\\ Filtrat ion Rate (eGFR) [...] and management of c hronic kidney failure. Formerly named [facility] WITH AUTO [id number] 09:59:00 Test Item Value Reference Range Interpretation [...] (test code = IG%) 0.4 % 0.0-0.4 [facility] Center[facility] WITH [id number] 06:21:00 Test Item Value Reference Range Interpretation Comments Color (test code = UCOLR) Yellow Clarity (test code = UCLAR) Clear Glucose (test code = UGLUC) NEGATIVE NEGATIVE N Bilirubin (test code = UBILI) NEGATIVE NEGATIVE N Ketones (test code = UKET) TRACE NEGATIVE A Specific [place] (test code = 1.020 1.005-1.030 A USPGR) [...] code = UBACT) Trace None Seen,Trace N [facility] CenterBMP2020-04-14 05:47:00 Test Item Value Reference Range Interpretation [...] mg/dl 8.4-10.2 = CALC) EGFR if >60 [place] (test code mL/min/1.73m\\ = EGFRAA) S\\2 EGFR if Non- >60 Estimate d Glomerular [place] (test code mL/min/1.73m\\ Filtrat ion Rate (eGFR) [...] and management of c hronic kidney failure. Formerly named [facility] WITH AUTO [id number] 05:46:00 Test Item Value Reference Range Interpretation [...] code = 0.7 % 0.0-0.4 H IG%) [facility] CenterBMP2020-04-13 04:49:00 Test Item Value Reference Range Interpretation [...] mg/dl 8.4-10.2 = CALC) EGFR if >60 [place] (test code mL/min/1.73m\\ = EGFRAA) S\\2 EGFR if Non- >60 Estimate d Glomerular [place] (test code mL/min/1.73m\\ Filtrat ion Rate (eGFR) [...] and management of c hronic kidney failure. [facility] CenterCB WITH AUTO [id number] 04:24:00 Test Item Value Reference Range Interpretation [...] code = 0.7 % 0.0-0.4 H IG%) [facility] Services[facility]-I [id number] 21:16:00 Test Item Value Reference Range Interpretation Comments Troponin-I (test <0.015 ng/ml 0.000-0.034 N The [address]ile URL code = TROP) is 0.045 ng/mL for the Siemens [place] T roponin I. The Joint Europ j[employer] Society of Cardiology/[facility] College of Card iology (ESC/ACC) and t he [facility] y of Clinical [place] amadou Standards of [...] 24 hours after the clini jack event. [facility] CenterTROPONIN-I [id number] 13:14:00 Test Item Value Reference Range Interpretation Comments Troponin-I (test <0.015 ng/ml 0.000-0.034 N The [address] r[address]ile URL code = TROP) is 0.045 ng/mL for the Siemens [place] T roponin I. The Joint [facility] Society of Cardiology/[facility] College of Card iology (ESC/ACC) and [facility] Clinical [place] amadou Standards of [place] boratory [...] 24 hours after the clini jack event. [facility] CenterLACTIC ACID [id number] 06:06:00 Test Item Value Reference Range Interpretation Comments LACTATE (test code = LAC) 2.8 mmol/l 0.7-2.0 HH repeat Critical values were called to Ramón Fatima RN by [id number] on 01/26/20 06:06 CDT. Results were read back by Ramón Fatima RN.[facility] CenterD-DIMER [id number] 06:02:00 Test Item Value Reference Range Interpretation [...] activa tion mesured on the Sysmex instruments. Th is same methodology is currently in use for [...] Value i s: > .50 mg/L FEU No te: Results greater than (>) the Cut-Off are to be considered POSI TIVE, and significant in the evaluation of thromboembolic diseases. Results less th an (<) the Cut-Off are to be considered NEGA TIVE, and a low probabili ty of thromboembolic disease. [facility] CenterBMP2020-04-12 05:31:00 Test Item Value Reference Range Interpretation [...] mg/dl 8.4-10.2 = CALC) EGFR if >60 [place] (test code mL/min/1.73m\\ = EGFRAA) S\\2 EGFR if Non- >60 Estimate d Glomerular [place] (test code mL/min/1.73m\\ Filtrat ion Rate (eGFR) = EGFRNA) S\\2 Reference Inter vals Decision Points for 18 years and older and average body ma ss: >= 60 Does not ex clude kidney disease. 30 - 59 Suggests mod erate chronic kidney disease and indicates t he need for further investigation including asses sment of proteinuria and cardiovascular factors. < 30 U sually indicates a nee d for referral for assessment and management of c hronic kidney failure. [facility] CenterTROPONIN-I [id number] 05:31:00 Test Item Value Reference Range Interpretation Comments Troponin-I (test <0.015 ng/ml 0.000-0.034 [address] URL code = TROP) is 0.045 ng/mL for the [employer] [place] T roponin I. The Joint [employer]/[facility] [employer] Card iology (ESC/ACC) and t elisabeth [facility] of Clinical [facility] amadou Standards of [place] boratory Practices (NACB [...] 24 hours after the clini jack event. [facility] CenterCB WITH AUTO [id number] 05:06:00 Test Item Value Reference Range Interpretation [...] code = IG%) 0.9 % 0.0-0.4 H [facility] CenterGLYCOSALATED [id number] 03:19:00 Test Item Value Reference Range Interpretation [...] code = TSH) 5.28 mIU/L 0.47-4.68 H [facility] CenterXR CHEST AP/PA 1 [id number] 00:53:02 EXAMINATION: XR CHEST AP/PA 1 VIEWINDICATION: [id number]: DyspneaCOMPARISON: Chest x-ray dated November 26, 2019FINDINGS: [...] 01/26/202012:46 AMDictated By: HUNG BRANCHDate: 01/26/2020 00:46[facility] LEONARDLACTIC ACID [id number] 00:25:00 Test Item Value Reference Range Interpretation Comments LACTATE (test code = LAC) 2.1 mmol/l 0.7-2.0 HH Critical values were called to Renetta Donato RN by [id number] on 01/26/20 00:25 CDT. Results were read back by Renetta Donato RN.[facility] CenterTROPONIN-I [id number] 00:25:00 Test Item Value Reference Range Interpretation Comments Troponin-I (test <0.015 ng/ml 0.000-0.034 [address] URL code = TROP) is 0.045 ng/mL for the [employer] [place] T roponin I. The Joint [employer] of Cardiology/[facility] College of Card iology (ESC/ACC) and t [facility] of Clinical [place] amadou Standards of [place] [...] 24 hours after the clini jack event. [facility] CenterPRO-BNP(B-Type Natriuretic Peptide)2020-01-26 00:25:00 Test Item Value Reference Range Interpretation Comments Pro-BNP(B-Peptide) 752 pg/ml 0-125 H Critical result called (test code = PROBNP) to Norma Donato RN; result read delia k [facility] CenterCMP2020-04-12 00:23:00 Test Item Value Reference Range Interpretation [...] ( 4 - SerumAlbumin)] EGFR if >60 [place] (test code mL/min/1.73m\\ = EGFRAA) S\\2 EGFR if Non- >60 Estimate d Glomerular [place] (test code mL/min/1.73m\\ Filtrat ion Rate (eGFR) [...] and management of c hronic kidney failure. [facility]00 Test Item Value Reference Range Interpretation [...] BGHCT) 40.5 35.0-50.0 O2Hb (test code = HWDI0CY) 92.6 % 95.0-99.0 L COHb (test code [...] Drawn By (test code = LAUREN MINAYA BGDRAWNBLuz Maria) Collection Date (test code 01/25/2020 = BGDTCOL) Collection Time (test code 23:40 = BGCTM) Sample Site (test code = L Radial BGSAMPLESITE) Sample Type (test code = Arterial BGSAMPLETYPE) Allens Test (test code = Acceptable BGALLEN) Notified By (test code = LAUREN MINAYA) Notified Whom (test code = DR. ROB BGSHANTELLE) Date Notified (test code = 01/25/2020 BGDTNOTIFIED) Time Notified (test code = 23:45 BGTMNOTIFIED) O2 Device (test code = Nasal Cannula [id number]) Instrument ID (test code = 06062 BGINSTRID) Reported By (test code = LAUREN MINAYA BGRICCARDO) Formerly named [facility] WITH AUTO [id number] 23:49:00 Test Item Value Reference Range Interpretation [...] code = 0.7 % 0.0-0.4 H IG%) [facility] [id number] 07:53:00 Specimen: BloodCollected: 01/04/2020 15:04 Status: Final Last Updated: 01/10/2020 07:52 Culture Result (Final) (Final) [facility] [place] [id number] 07:53:00To start 15mins after 1st cultureSpecimen: BloodCollected: 01/04/2020 15:04 Status: Final Last Updated: 01/10/2020 07:52 (1) To [id number] after 1st culture Culture Result (Final) (Final) No Growth [facility] [id number] 07:53:00Specimen: BloodCollected: 01/04/2020 15:04 Status: Final Last Updated: 01/10/2020 07:52 Culture Result (Final) (Final) No [facility] [place] [id number] 07:53:00Specimen: BloodCollected: 01/04/2020 15:04 Status: Final Last Updated: 01/10/2020 07:52 Culture Result (Final) (Final) No Growth [facility] [place], [id number] 09:23:00MUST order Gram Stain separately WOUNDSSpecimen: WoundCollected: 01/04/2020 14:25 Status: Final Last Updated: 01/06/2020 17:37 (1) MUST order Gram Stain separately WOUNDS Culture Result (Final) (Final) Many Gram Negative Bacilli Isolate (Final) (Final) Serratia marcescens Amikacin <=2 S Cefazolin >=64 R Cefepime <=1 S Cefoxitin RCeftazidime <=1 S Ceftriaxone <=1 S Ciprofloxacin <=0.25 S Gentamicin <=1 S Levofloxacin <=0.12 S Meropenem <=0.25 S Tobramycin <=1 S Trimeth/Sulfa <=20 [facility] GRAM [id number] 07:22:00Must order gram stain separately with aerobic cult Specimen: WoundCollected: 01/04/2020 14:25 Status: Final Last Updated: 01/06/2020 07:22 (1) Must order gram stain separately with aerobic cult Gram Stain (Final) (Final) Many RBC's Moderate Gram Negative BacilliMeSpooner HealthXR LEG (TIB/FIB) 2 [id number] 15:32:55Right tibia/fibula radiographs-4 viewsHistory: Pain.Comparison: right ankle [...] Dr John José MD 01/04/2020 3:26PMDictated By: ARNOLDO JOSÉate: 01/04/2020 15:26[facility] [id number] 15:30:00 Test Item Value Reference Range Interpretation [...] ( 4 - SerumAlbumin)] EGFR if >60 [place] (test code mL/min/1.73m\\ = EGFRAA) S\\2 EGFR if Non- >60 Estimate d Glomerular [place] (test code mL/min/1.73m\\ Filtrat ion Rate (eGFR) = EGFRNA) S\\2 Reference Inter vals Decision Points for 18 years and older and average body ma ss: >= 60 Does not ex clude kidney disease. 30 - 59 Suggests mod erate chronic kidney disease and indicates t he need for further investigation including asses sment of proteinuria and cardiovascular factors. < 30 U sually indicates a nee d for referral for assessment and management of c hronic kidney failure. [facility] WITH [id number] 15:28:00 Test Item Value Reference Range Interpretation Comments Color (test code = UCOLR) Yellow Clarity (test code = UCLAR) Clear Glucose (test code = UGLUC) NEGATIVE NEGATIVE N Bilirubin (test code = UBILI) NEGATIVE NEGATIVE N Ketones (test code = UKET) NEGATIVE NEGATIVE N Specific [place] (test code = >=1.030 1.005-1.030 A USPGR) [...] code = UBACT) Trace None Seen,Trace N Formerly named [facility] WITH AUTO [id number] 15:07:00 Test Item Value Reference Range Interpretation [...] (test code = 0.4 % 0.0-0.4 IG%) [facility] CenterXR ANKLE COMP MIN 3 [id number] 16:18:18 Evaluate for gasRight ankle 3 views:History: [...] Dr Adrian Schreiber MD 11/26/20194:11 PMDictated By: John SCHREIBERte: 11/26/2019 16:11[facility] LEONARDXR CHEST AP/PA 1 [id number] 16:07:03Exam: AP portable chestDATE OF EXAM: 11/26/2019 [...] Dr Adrian Schreiber MD 11/26/20194:00 PMDictated By: John SCHREIBERte: 11/26/2019 16:00[facility] LEONARDTROPONIN-I Quantitative 2019-11-26 15:37:00 Test Item Value Reference Range Interpretation Comments Troponin-I (test <0.015 ng/ml 0.000-0.034 N [address] URL code = TROP) is 0.045 ng/mL for the Siemens [place] T roponin I. The Joint Europ jimi Society of Cardiology/[place]mer [place] College of Card iology (ESC/ACC) and t elisabeth [facility] of Clinical [facility] amadou Standards of La boratory Practices (NACB [...] 24 hours after the clini jack event. [facility] CenterPRO-BNP(B-Type Natriuretic Peptide)2019-11-26 15:37:00 Test Item Value Reference Range Interpretation Comments Pro-BNP(B-Peptide) (test code = 20 pg/ml 0-125 PROBNP) [facility] CenterCMP2020-02-11 15:37:00 Test Item Value Reference Range Interpretation [...] ( 4 - SerumAlbumin)] EGFR if >60 [place] (test code mL/min/1.73m\\ = EGFRAA) S\\2 EGFR if Non- >60 Estimate d Glomerular [place] (test code mL/min/1.73m\\ Filtrat ion Rate (eGFR) [...] management of c hronic kidney failure. [facility]-REACTIVE [id number] 15:26:00 Test Item Value Reference Range Interpretation Comments C REACTIVE PROTEIN (test code = 27.00 mg/dl 0.00-3.00 H CRP) [facility] CenterPREGNANCY TEST, Serum [id number] 15:24:00 Test Item Value Reference Range Interpretation Comments (Serum) (test code = Negative Negative N PREGS) [facility] CenterCB WITH AUTO [id number] 15:00:00 Test Item Value Reference Range Interpretation [...] (test code = 0.3 % 0.0-0.4 IG%) [facility] CenterXR CHEST 2 PA [id number] 17:10:47 Procedure: XR CHEST 2 PA LATERALOrder Date: 11/15/2018 3:11 PMOrdering Provider: DR TIM BYRNESAClinical Indication: [id number]: DyspneaComparison: 06/08/2018Findings:Cardiac size is normal.Pulmonary vasculature is normal.Mediastinal contour is normal.Aortic contour is normal.There is no consolidation or effusion.There is no mass or pneumothorax.There is no evidence of active tuberculosis.There is no skeletal abnormality.Impression: Negative PA and lateral views of the chest.This final report was electronically signed by Dr Bg Cardenas MD 11/15/20185:04 PMDictated By: BG CARDENASDate: 11/15/2018 17:04[facility] 2 PA [id number] 13:35:48PA and lateral chest:Exam Date: 06/08/2018Clinical Indication: COPDThe lungs are clear. Cardiac size is at upper limits of normal. There is novascular congestion or pleural effusion. There are no significant bonyabnormalities.Impression: No acute cardiopulmonary abnormality.This final report was electronically signed by Dr Adrian Schreiber MD 06/08/20181:29 PMDictated By: ADRIAN SCHREIBERDate: 06/08/2018 13:35[facility] [id number] 10:29:00MUST order Gram Stain separately WOUNDSSpecimen: Leg RightCollected: 09/15/2017 17:54 Status: Final Last Updated: 09/18/2017 01:39 (1) MUSTorder Gram Stain separately WOUNDS Culture Result (Final) (Final) Many Gram Negative Bacilli Isolate(Final) (Final) Proteus mirabilis Amoxicillin/clavu <=2 S Ampicillin <=2 S Aztreonam <=1 S Cefazolin <=4 S Cefepime <=1 S Ceftriaxone <=1 S Ciprofloxacin <=0.25 S Gentamicin <=1 S Levofloxacin <=0.12 S Meropenem <=0.25 S Tetracycline >=16 R Trimeth/Sulfa <=20 [facility] [id number] 07:23:00Specimen: Urine SpecimensCollected: 09/15/2017 17:55 Status: Final Last Updated: 09/18/2017 07:23 Culture Result (Final) (Final) No Growth After 48 HoursGrant [facility] CenterGRAM [id number] 13:27:00Must order gram stain separately with aerobic cultSpecimen: Leg RightCollected: 09/15/2017 17:54 Status: Final Last Updated: 09/17/2017 13:27 (1) Mustorder gram stain separately with aerobic cult Gram Stain (Final) (Final) No Cells Seen Rare Gram Negative BacilliGrant Regional Health CenterXR ANKLE [id number] 18:22:06EXAM: XR ANKLE 2VWS, RIGHTDATE: 09/15/2017 4:52 PMINDICATION: r/o osteomyelitisCOMPARISON: NoneFINDING S:BONES:No acute fractures.Periosteal reaction along the superficial aspect of the medial malleolus.No discrete osseous erosion.JOINTS:The joints are maintained and without erosive changes.No malalignment.SOFT TISSUES:Soft tissue defect along the medial aspect of the distal leg.Regional soft tissue swe lling.Numerous nonspecific soft tissue calcifications.IMPRESSION:Periosteal reaction of the superficial aspect of the medial malleolus, worrisomefor underlying osteomyelitis given the provided history.This final report was electronically signed by Dr Juan Mckinnon DO 09/15/2017 6:15PMDictated By: JUAN MCKINNONDate: 09/15/2017 18:22[facility] [id number] 18:11:00 Test Item Value Reference Range Interpretation [...] ( 4 - SerumAlbumin)] EGFR if >60 [place] (test code mL/min/1.73m\\ = EGFRAA) S\\2 EGFR if Non- >60 Estimate d Glomerular [place] (test code mL/min/1.73m\\ Filtrat ion Rate (eGFR) = EGFRNA) S\\2 Reference Inter vals Decision Points for 18 years and older and average body ma ss: >= 60 Does not ex clude kidney disease. 30 - 59 Suggests mod erate chronic kidney disease and indicates t he need for further investigation including asses sment of proteinuria and cardiovascular factors. < 30 U sually indicates a nee d for referral for assessment and management of c hronic kidney failure. [facility] CenterURINALYSIS WITH [id number] 18:06:00 Test Item Value Reference Range Interpretation Comments Color (test code = UCOLR) Yellow Clarity (test code = UCLAR) CLEAR Glucose (test code = UGLUC) NEGATIVE NEGATIVE N Bilirubin (test code = UBILI) NEGATIVE NEGATIVE N Ketones (test code = UKET) NEGATIVE NEGATIVE N Specific [place] (test code = 1.025 1.005-1.030 A USPGR) [...] code = UBACT) Trace None Seen,Trace N [facility] CenterPREGNANCY TEST, Urine [id number] 18:02:00 Test Item Value Reference Range Interpretation Comments (Urine) (test code = Negative PREGU) If a specimen is collected by a nurse, then you MUST fill out the Collected and Collected By rankin [facility] CenterCB WITH AUTO [id number] 17:55:00 Test Item Value Reference Range Interpretation [...] (test code = 0.4 % 0.0-0.4 IG%) AUTO [facility]
[2023-08-14 16:09] LABS: Blood Gas Oxyhemoglobin 92.2 % (94-97); Blood O2 Saturation 95.4 % (92-98.5)
[2023-08-14] MEDS ORDERED: CEFTRIAXONE 2000 MG/VIAL ONE (16:18)
[2023-08-14] MEDS ORDERED: AZITHROMYCIN 500 MG INJ IVPB ONE (16:18)
[2023-08-14] MEDS ORDERED: NA CHLORIDE 0.9% 250 ML ONE (16:18)
[2023-08-14] MEDS ORDERED: NA CHLORIDE 0.9% 1,000 ML ONE (16:19)
[2023-08-14] MEDS ORDERED: NA CHLORIDE 0.9% 100 ML ONE (16:19)
--- NOTE | 2023-08-14 16:24 | RAD REPORT ---
EXAM DESCRIPTION: RAD - Chest Single View - 08/14/2023 4:18 pm CLINICAL HISTORY: COPD Chest pain. COMPARISON: <Comparisons> FINDINGS: Portable technique limits examination quality. Moderate interstitial pulmonary edema suspected. The heart is enlarged in size. No displaced fracture s. IMPRESSION: Mild to moderate CHF.
[2023-08-14 16:55] LABS: Bilirubin Total 0.5 mg/dL (0.2-1.0); Potassium 4.3 mEq/L (3.5-5.1)
[2023-08-14 16:56] LABS: Absolute Lymphocytes (CBC) 0.7 K/uL (0.7-4.9); Albumin 2.8 g/dL (3.4-5.0); Hematocrit 33.6 % (36.0-45.0); Lymphocytes % 9.6 % (15.3-44.8); MCV 89.6 fL (80-100); MPV 7.9 fL (7.6-11.3); Platelets 236 thou/uL (152-406); RBC Red Blood Cell Count 3.75 M/uL (3.86-4.86)
[2023-08-14 16:58] LABS: Protime INR 1.05
--- NOTE | 2023-08-14 17:03 | ER ---
Nurse's Notes [facility] Name: Courtney Sawyer Age: 48 yrs Sex: Female : 1975 Arrival Date: 08/14/2023 Time: 15:42 Bed 3 Private MD: Diagnosis: COPD/ Chronic obstructive pulmonary disease with (acute) exacerbation;CHF Exacerbation;Obesity, unspecified Presentation: 08/14 15:49 Chief complaint: EMS states: "toned out for low SPO2, 70% on RA, and cough while at [address] Pt states she also had abdominal pain in all quadrants. BGL 280 and 20 g to left FA.". Coronavirus screen: Vaccine status: Patient reports receiving the 2nd dose of the covid vaccine. Ebola Screen: No symptoms or risks identified at this time. Initial Sepsis Screen: Does the patient meet any 2 criteria? No. Patient's initial sepsis screen is negative. Does the patient have a suspected source of infection? No. Patient's initial sepsis screen is negative. Risk Assessment: Do you want to hurt yourself or someone else? Patient reports no desire to harm self or others. Onset of symptoms was August 14, 2023. 15:49 Method Of Arrival: EMS: [facility] 15:49 Acuity: LAURI 2 mb9 Triage Assessment: 15:56 General: Appears uncomfortable, Behavior is cooperative, appropriate for age. Pain: mb9 Denies pain. EENT: No signs and/or symptoms were reported regarding the EENT system. Neuro: Brooks Agitation-Sedation Scale (RASS): 0 - Alert and Calm Level of Consciousness is awake, obeys commands, lethargic, Oriented to person, place, time, situation, Appropriate for age. Cardiovascular: Heart tones S1 S2 present Patient's skin is warm and dry. Respiratory: Reports shortness of breath cough that is Airway is patent Respiratory effort is labored, Respiratory pattern is tachypnea Breath sounds are clear bilaterally. GI: Abdomen is obese, Bowel sounds present X 4 quads. Abd is soft and non tender X 4 quads. : No signs and/or symptoms were reported regarding the genitourinary system. Derm: Skin is intact, Skin is dry, Skin is pale, Skin temperature is cool. Musculoskeletal: Range of motion: intact in all extremities. Historical: - Allergies: 15:54 Adhesives; mb9 15:54 Cephalexin; mb9 15:54 Codeine; mb9 15:54 Keflex; mb9 15:54 Tylenol; mb9 - Home Meds: 15:54 Albuterol Inhl 2 inhalations [Active]; aripiprazole 10 mg oral tablet 1 tab for bipolar mb9 disorder [Active]; aspirin 81 mg Oral capsule [Active]; 16:52 atorvastatin 40 mg oral tablet 1 tab every day at bedtime [Active]; benztropine 1 mg mb9 Oral tablet 1 tab 2 times per day [Active]; furosemide 80 mg Oral tablet 1 tab once [Active]; gabapentin 300 mg oral capsule 1 cap [Active]; insulin glargine 100 unit/mL (3 mL) Sub-Q Insulin Pen [Active]; metformin 500 mg Oral tablet 1 tab 2 times per day [Active]; sertraline 100 mg oral tablet 1 tab daily [Active]; spironolactone 25 mg Oral tablet 1 tab [Active]; - PMHx: 15:54 Anemia; Asthma; CHF; COPD; Dementia; depressive disorder; diabetes mellitus; GERD; mb9 Hypertensive disorder; Obesity; - Immunization history:: Adult Immunizations up to date. - Social history:: Smoking status: Patient/guardian denies using tobacco. Screenin:57 [facility] ED Fall Risk Assessment (Adult) History of falling in the last 3 months, mb9 including since admission Yes- fall prone (multiple falls) (3 pts) Confusion or Disorientation No (0 pts) Intoxicated or Sedated No (0 pts) Impaired Gait Yes (1 pt) Mobility Assist Device Used No (0 pt) Altered Elimination No (0 pt) Score/Fall Risk Level 3 or more points = High Risk Oriented to surroundings, Maintained a safe environment, Educated pt \\T\\ family on fall prevention, incl call for assistance when getting out of bed. Abuse screen: Denies threats or abuse. Nutritional screening: No deficits noted. Tuberculosis screening: No symptoms or risk factors identified. Assessment: 15:53 Reassessment: RT at bedside for BiPap. jl7 16:25 Respiratory: Patient placed on BiPAP: Inspiratory Pressure: 18 Expiratory (EPAP) mb9 Pressure: 9 FiO2%: 40 Respiratory Rate: 18. 16:51 Reassessment: No changes from previously documented assessment. Patient and/or family mb9 updated on plan of care and expected duration. Pain level reassessed. Patient is alert, oriented x 3, equal unlabored respirations, skin warm/dry/pink. 17:54 Reassessment: No changes from previously documented assessment. Patient and/or family mb9 updated on plan of care and expected duration. Pain level reassessed. Patient is alert, oriented x 3, equal unlabored respirations, skin warm/dry/pink. 18:46 Reassessment: No changes from previously documented assessment. Patient and/or family mb9 updated on plan of care and expected duration. Pain level reassessed. Patient is alert, oriented x 3, equal unlabored respirations, skin warm/dry/pink. 21:15 General: report given to receiving nurse. jw7 Vital Signs: 15:49 BP 123 / 72; Pulse 95; Resp 26; Temp 98.6; Pulse Ox 88% on 6 lpm NC; Height 5 ft. 4 in. mb9 ; Pain 0/10; 15:50 Weight 230.5 kg (R); iw 15:54 Weight 230.5 kg; mb9 16:42 BP 143 / 82; Pulse 95; Resp 22; Pulse Ox 95% on BiPAP; FiO2 40 %; mb9 17:54 BP 146 / 88; Pulse 96; Resp 18; Pulse Ox 97% on BiPAP; FiO2 40 %; mb9 17:54 BP 162 / 90; Pulse 88; Resp 20; Pulse Ox 98% on BiPAP; FiO2 40 %; mb9 15:49 Pain Scale: Adult mb9 ED Course: 15:43 Patient arrived in ED. sb4 15:43 Lincoln Brown MD is Attending Physician. ec2 15:48 Deanne Camp RN is Primary Nurse. mb9 15:48 Arm band placed on. mb9 15:53 Triage completed. mb9 15:57 Placed in gown. Bed in low position. Call light in reach. Side rails up X 1. Client mb9 placed on continuous cardiac and pulse oximetry monitoring. NIBP monitoring applied. monitoring coordinator on. 15:57 No provider procedures requiring assistance completed. Maintain EMS IV. Dressing mb9 intact. Good blood return noted. Site clean \\T\\ dry. Gauge \\T\\ site: 20 g left FA. 15:59 ordered bariatric bed, confirmation [id number].. bd 16:20 Chest Single View XRAY In Process Unspecified. EDMS 16:23 Influenza Screen (a \\T\\ B) Sent. mb9 16:24 COVID-19 SARS RT PCR Sent. mb9 16:24 Blood Culture Adult (2) Sent. mb9 16:24 CBC with Diff Sent. mb9 16:24 CMP Sent. mb9 16:24 Protime (+inr) Sent. mb9 16:24 Ptt, Activated Sent. mb9 16:24 Inserted saline lock: 20 gauge in right antecubital area, using aseptic technique. mb9 Blood collected. 17:02 Celia Medina MD is Hospitalizing Provider. ec2 18:52 Patient admitted, IV remains in place. mb9 19:04 Report given to FREDERICK DODD. mb9 22:10 Provided Education on: need for admit. jw7 Administered Medications: 16:28 Drug: Rocephin IV 2 grams IV at calculated rate once; Given slow IV push per pharmarcy mb9 instructions Route: IV; Rate: calculated rate; Site: right antecubital; 18:46 Follow up: Response: No adverse reaction; IV Status: Completed infusion mb9 16:35 Drug: AZITHromycin IVPB 500 mg IVPB once over 1 hrs; (mix in 250 mL NS) Route: IVPB; mb9 Infused Over: 1 hrs; Site: left forearm; 18:45 Follow up: Response: No adverse reaction; IV Status: Completed infusion mb9 17:01 Drug: NS 0.9% IV 500 ml IV at bolus once Route: IV; Rate: bolus; Site: left forearm; mb9 18:45 Follow up: Response: No adverse reaction; IV Status: Completed infusion mb9 21:20 Drug: Acetaminophen OR Suppository 650 mg OR once Route: OR; pf1 22:11 Follow up: Response: No adverse reaction jw7 21:20 Drug: Acetaminophen OR Suppository 325 mg OR once Route: OR; pf1 22:11 Follow up: Response: No adverse reaction jw7 21:24 Drug: Ketorolac IVP 30 mg IVP once Route: IVP; Site: left forearm; pf1 22:10 Follow up: Response: No adverse reaction jw7 Medication: 16:24 VIS not applicable for this client. mb9 Outcome: 17:03 Decision to Hospitalize by Provider. ec2 22:09 Admitted to ICU accompanied by nurse, accompanied by jairo, via wheelchair, room 1, with jw7 oxygen, 22:09 Condition: stable 22:09 Instructed on the need for admit, Demonstrated understanding of instructions, 22:10 Patient left the ED. jw7 Signatures: Dispatcher [employer] EDLorelei Starkey Irene, RN RN iw Rosy Andrade RN RN jl7 Mackenzie August, RN RN emelina7 Hannah Pena, PARussell PADeanne Ryder RN RN mb9 Liliya Alarcon RN RN pf1 Lincoln Brown MD MD ec2 Corrections: (The following items were deleted from the chart) 15:51 15:50 230.5 kg Measured; [facility] 16:51 15:56 Neuro: Brooks Agitation-Sedation Scale (RASS): 0 - Alert and Calm Level of mb9 Consciousness is awake, alert, obeys commands, Oriented to person, place, time, situation, Appropriate for age mb9 18:47 17:54 BP 146 / 88; Pulse 96bpm; Resp 18bpm; Pulse Ox 97% RA; mb9 mb9
--- NOTE | 2023-08-14 17:03 | EDPHYS ---
Physician Documentation [facility] Name: Courtney Sawyer Age: 48 yrs Sex: Female : 1975 Arrival Date: 08/14/2023 Time: 15:42 Bed 3 Private MD: ED Physician Lincoln Brown HPI: 08/14 15:55 This 48 yrs old Female presents to ER via EMS with complaints of cough, sob . ec2 15:55 Patient with history of obesity, COPD arrives today due to concern for shortness of ec2 breath. Patient reports she been having cough symptoms for 2 days, states no fever or chills, states that she had some abdominal pain that had since subsided. Patient reports no issues with vomiting or diarrhea, denies any urinary complaints. Reportedly takes albuterol at home with some improvement in her symptoms. Also uses at home BiPAP. Of note EMS reports that she was noted to be hypoxic on their arrival and subsequently placed her on oxygen.. Historical: - Allergies: 15:54 Adhesives; mb9 15:54 Cephalexin; mb9 15:54 Codeine; mb9 15:54 Keflex; mb9 15:54 Tylenol; mb9 - Home Meds: 15:54 Albuterol Inhl 2 inhalations [Active]; aripiprazole 10 mg oral tablet 1 tab for bipolar mb9 disorder [Active]; aspirin 81 mg Oral capsule [Active]; 16:52 atorvastatin 40 mg oral tablet 1 tab every day at bedtime [Active]; benztropine 1 mg mb9 Oral tablet 1 tab 2 times per day [Active]; furosemide 80 mg Oral tablet 1 tab once [Active]; gabapentin 300 mg oral capsule 1 cap [Active]; insulin glargine 100 unit/mL (3 mL) Sub-Q Insulin Pen [Active]; metformin 500 mg Oral tablet 1 tab 2 times per day [Active]; sertraline 100 mg oral tablet 1 tab daily [Active]; spironolactone 25 mg Oral tablet 1 tab [Active]; - PMHx: 15:54 Anemia; Asthma; CHF; COPD; Dementia; depressive disorder; diabetes mellitus; GERD; mb9 Hypertensive disorder; Obesity; - Immunization history:: Adult Immunizations up to date. - Social history:: Smoking status: Patient/guardian denies using tobacco. ROS: 15:55 Constitutional: as per hpi ec2 Exam: 15:55 Constitutional: GEN: NAD Head: atraumatic Eyes: EOMI Ears: External ears are ec2 normal. CV: regular rate LUNGS: no respiratory distress, no wheezes, no rales, no rhonchi, tachypnea noted ABD: Obese, nontender, not guarding SKIN: no evidence of rashes MSK: no evidence of trauma Vital Signs: 15:49 BP 123 / 72; Pulse 95; Resp 26; Temp 98.6; Pulse Ox 88% on 6 lpm NC; Height 5 ft. 4 in. mb9 ; Pain 0/10; 15:50 Weight 230.5 kg (R); iw 15:54 Weight 230.5 kg; mb9 16:42 BP 143 / 82; Pulse 95; Resp 22; Pulse Ox 95% on BiPAP; FiO2 40 %; mb9 17:54 BP 146 / 88; Pulse 96; Resp 18; Pulse Ox 97% on BiPAP; FiO2 40 %; mb9 17:54 BP 162 / 90; Pulse 88; Resp 20; Pulse Ox 98% on BiPAP; FiO2 40 %; mb9 15:49 Pain Scale: Adult mb9 MDM: 15:43 Patient medically screened. ec2 15:55 ED course: Patient arrives today due to concern for cough and shortness of breath. ec2 Examination remarkable for obese individual who is tachypneic and has some tachycardia noted. Will obtain a septic work-up, do viral swabs, give the patient empiric pulmonary coverage. Currently considered pneumonia, viral infection, obesity hypoventilation syndrome. In regards to the patient's abdominal pain, patient with a benign abdomen, soft, nontender and with no active symptoms of abdominal complaints, will not pursue this any further.. 15:57 ED course: EKG independently reviewed and interpreted by me, shows normal sinus rhythm, ec2 rate of 93, no acute ST segment elevations, nonconcerning intervals.. 16:13 ED course: ABG with a respiratory acidosis, PCO2 of 81, pH of 7.3.. ec2 16:39 ED course: Chest x-ray independently reviewed and interpreted by me, shows ec2 cardiomegaly, vascular congestion, no focal consolidation appreciated. . 17:01 Data reviewed: vital signs. ec2 17:03 ED course: On reassessment patient with improving symptoms.. ec2 17:04 ED course: Patient does have a lactic acidosis noted, I suspect this is from the ec2 patient's hypoxia which is resolved since her time here in the ED. Hesitate to give the patient aggressive crystalloid management given the patient's CHF notable on x-ray as well as her respiratory status. I will give her a small fluid bolus. . 08/14 15:52 Order name: Blood Culture Adult (2) ec2 08/14 15:52 Order name: CBC with Diff; Complete Time: 17:03 ec2 08/14 15:52 Order name: CMP; Complete Time: 16:57 ec2 08/14 15:52 Order name: Lactate w/ 2H reflex if indic.; Complete Time: 16:58 ec2 08/14 15:52 Order name: Protime (+inr); Complete Time: 16:59 ec2 08/14 15:52 Order name: Ptt, Activated; Complete Time: 16:59 ec2 08/14 15:52 Order name: ABG ec2 08/14 15:53 Order name: COVID-19 SARS RT PCR; Complete Time: 17:32 ec2 08/14 15:53 Order name: Influenza Screen (a \T\ B); Complete Time: 17:15 ec2 08/14 16:39 Order name: BNP; Complete Time: 17:32 ec2 08/14 20:20 Order name: Lactate Sepsis 2 HR Follow-up; Complete Time: 21:12 EDMS 08/14 21:03 Order name: ABG rv1 08/14 21:38 Order name: ABG Arterial Blood Gas EDVA 08/14 15:52 Order name: Chest Single View XRAY; Complete Time: 16:39 ec2 08/14 15:52 Order name: EKG; Complete Time: 15:53 ec2 08/14 17:24 Order name: CONS Physician Consult EDVA 08/14 15:52 Order name: Accucheck; Complete Time: 16:24 ec2 08/14 15:52 Order name: Cardiac monitoring; Complete Time: 15:54 ec2 08/14 15:52 Order name: EKG - Nurse/Tech; Complete Time: 15:54 ec2 08/14 15:52 Order name: IV Saline Lock - Large Bore; Complete Time: 16:24 ec2 08/14 15:52 Order name: Labs collected and sent; Complete Time: 16:24 ec2 08/14 15:52 Order name: O2 Per Protocol; Complete Time: 15:54 ec2 08/14 15:52 Order name: O2 Sat Monitoring; Complete Time: 15:54 ec2 08/14 15:52 Order name: Vital Signs; Complete Time: 15:54 ec2 Administered Medications: 16:28 Drug: Rocephin IV 2 grams IV at calculated rate once; Given slow IV push per pharmarcy mb9 instructions Route: IV; Rate: calculated rate; Site: right antecubital; 18:46 Follow up: Response: No adverse reaction; IV Status: Completed infusion mb9 16:35 Drug: AZITHromycin IVPB 500 mg IVPB once over 1 hrs; (mix in 250 mL NS) Route: IVPB; mb9 Infused Over: 1 hrs; Site: left forearm; 18:45 Follow up: Response: No adverse reaction; IV Status: Completed infusion mb9 17:01 Drug: NS 0.9% IV 500 ml IV at bolus once Route: IV; Rate: bolus; Site: left forearm; mb9 18:45 Follow up: Response: No adverse reaction; IV Status: Completed infusion mb9 21:20 Drug: Acetaminophen MT Suppository 650 mg MT once Route: MT; pf1 22:11 Follow up: Response: No adverse reaction jw7 21:20 Drug: Acetaminophen MT Suppository 325 mg MT once Route: MT; pf1 22:11 Follow up: Response: No adverse reaction jw7 21:24 Drug: Ketorolac IVP 30 mg IVP once Route: IVP; Site: left forearm; pf1 22:10 Follow up: Response: No adverse reaction jw7 Disposition Summary: 08/14/23 17:03 Hospitalization Ordered Notes: Hospitalization Status: Inpatient Admission ec2 Provider: Celia Medina ecAndrea Condition: Stable ec2 Problem: an acute exacerbation ec2 Symptoms: have improved ec2 Bed/Room Type: Standard ec2 Location: Intensive Care Unit(08/14/23 20:05) Room Assignment: 1-(08/14/23 20:05) kl Diagnosis - COPD/ Chronic obstructive pulmonary disease with (acute) exacerbation ec2 - CHF Exacerbation ec2 - Obesity, unspecified ec2 Forms: - Medication Reconciliation Form ec2 - SBAR form ec2 - Leadership Thank You Letter ec2 Critical care time excluding procedures: 17:01 Critical care time: Bedside Care: 30 minutes, Consultation: 5 minutes. Total time: 35 ec2 minutes Signatures: Dispatcher [employer] Elise Agarwal RN RN kl Nieto, Roman, MD MD rn Breneman, Deanne Bland RN RN mb9 Liliya Alarcon RN RN pf1 Angel Zavala MD MD sp4 Riya Mcdonough, HAND ALTERATIONS SEAMSTRESS HAND ALTERATIONS SEAMSTRESS 12 Lincoln Brown MD MD ec2 Mackenzie August RN jw7 Corrections: (The following items were deleted from the chart) 17:04 15:55 Patient with history of obesity, COPD arrives today due to concern for shortness ec2 of breath. Patient reports she been having cough symptoms for 2 days, states no fever or chills, states that she had some abdominal pain that had since subsided. Patient reports no issues with vomiting or diarrhea, denies any urinary complaints. Reportedly takes albuterol at home with some improvement in her symptoms. Also uses at home BiPAP.. ec2 20:05 17:03 Telemetry/MedSurg (Inpatient) ec2 kl 20:05 17:03 ec2 kl
--- NOTE | 2023-08-14 17:17 | P.HP ---
Certification for Inpatient Patient admitted to: Inpatient With expected LOS: >2 Midnights Patient will require the following post-hospital care: [facility] Practitioner: I am a practitioner with admitting privileges, knowledge of patient current condition, hospital course, and medical plan of care. Services: Services provided to patient in accordance with Admission requirements found in Title 42 Section 412.3 of the Code of Federal Regulations Patient History Date of Service: 08/14/23 Reason for admission: Shortness of breath History of Present Illness: 48-year-old female with history of acute hypoxic respiratory failure with hypercapnia, COPD, CHF, dementia, diabetes with history of HH NK, depression, morbid obesity, malnutrition, anemia, chronic pain, CAD, hyperlipidemia, constipation, bipolar, presents to the emergency room via EMS from [facility]. Patient reports chronic shortness of breath worse over the last week. She denies chest pain, abdominal pain, fever, nausea vomiting diarrhea. Reports using home BiPAP. ER course EKG shows normal sinus rhythm, rate of 93, no acute ST segment elevations, nonconcerning intervals.ED course: ABG with a respiratory acidosis, ABG pH 7.30, CO2 81.3, H CO 338.5, mild hyponatremia at 134, elevated lactic 2.6, BNP 225, SARS negative, chest x-ray mild to moderate CHF, moderate interstitial pulmonary edema suspected Allergies adhesive tape Adverse Reaction (Intermediate, Verified 03/26/22 06:12) Nausea/Vomiting codeine Adverse Reaction (Intermediate, Verified 03/26/22 06:12) Nausea/Vomiting Home Medications: Aripiprazole [Abilify] 10 mg PO DAILY 03/26/22 Aspirin [Aspirin EC 81 MG] 81 mg PO DAILY 03/26/22 Atorvastatin Calcium 40 mg PO BEDTIME 03/26/22 Benztropine Mesylate 1 mg PO BID 03/26/22 Docusate [Colace Cap*] 100 mg PO DAILY 03/26/22 Ergocalciferol (Vitamin D2) [Vitamin D2] 50,000 unit PO Q7D 03/26/22 Ferrous Sulfate 325 mg PO DAILY 03/26/22 Fexofenadine HCl [Jeri Allergy] 180 mg PO DAILY 03/26/22 Folic Acid 0.4 mg PO DAILY 03/26/22 Furosemide 80 mg PO DAILY 03/26/22 Gabapentin 300 mg PO TID 03/26/22 Metformin HCl [Glucophage*] 500 mg PO BID 03/26/22 Spironolactone [Aldactone*] 25 mg PO DAILY tab 03/31/22 Calcium Carbonate [Tums Regular*] 750 mg PO BID 03/15/23 Sertraline [Zoloft*] 100 mg PO DAILY 03/15/23 Albuterol Neb [Proventil 0.083% Neb Soln] 2.5 mg NEB [id number] amp 03/18/23 Insulin -Regular Human [Novolin -R*] See Protocol SQ ACHS ml 03/18/23 Insulin Glargine,Hum.rec.anlog [Semglee] 15 unit SQ DAILY ml 03/18/23 Ipratropium Neb [Atrovent*] 0.5 mg NEB [id number] amp 03/18/23 acetaZOLAMIDE [Diamox*] 250 mg PO BID #60 tab 03/18/23 levoFLOXacin [Levaquin*] 750 mg PO DAILY #3 tab 03/18/23 predniSONE [Deltasone*] 10 mg PO BID #14 tab 03/18/23 - Past Medical/Surgical History Diabetic: Yes -: COPD -: DMII -: morbid obesity -: Asthma Psychosocial/ Personal History: [facility] - Social History Alcohol use: No CD- Drugs: No Caffeine use: Yes Review of Systems 10-point ROS is otherwise unremarkable Physical Examination - Vital Signs Pulse Ox (%): 97 - Physical Exam General: Alert, Acute distress, Obese, Other (Drowsy response to verbal) HEENT: Atraumatic, Normocephalic, PERRLA, Mucous membr. moist/pink Neck: 2+ carotid pulse no bruit, JVD not distended Respiratory: Normal air movement, Diminished Cardiovascular: Normal pulses, Regular rate/rhythm, Normal S1 S2 Capillary refill: <2 Seconds Gastrointestinal: Soft and benign, Other (Obese) Musculoskeletal: No clubbing, No swelling Integumentary: Other Neurological: Other (AO x3 answers questions appropriately) - Studies Laboratory Data (last 24 hrs) 08/14/23 08/14/23 08/14/23 16:20 16:20 16:20 WBC 7.60 Hgb 11.0 L Hct 33.6 L Plt Count 236 PT 11.5 INR 1.05 APTT 28.3 Sodium 134 L Potassium 4.3 BUN 10 Creatinine 0.75 Glucose 281 H Total Bilirubin 0.5 AST 19 ALT 21 Alkaline Phosphatase 81 Microbiology Data (last 24 hrs): 08/14/23 16:06 Nasopharnyx Influenza Type A Antigen Screen - Final 08/14/23 16:06 Nasopharnyx Influenza Type B Antigen Screen - Final Assessment and Plan - Plan Assessment plan Acute hypoxic respiratory failure secondary to COPD exacerbation versus acute on chronic heart failure Respiratory acidosis Lactic acidosis Pulmonary consult, BiPAP, repeat ABG, ABG in the a.m. trend lactic Nebs, resume home Lasix, ceftriaxone, azithromycin ABG pH 7.30, CO2 81.3, H CO 338.5, elevated lactic 2.6, BNP 225, SARS negative, chest x-ray mild to moderate CHF, moderate interstitial pulmonary edema suspected Morbid obesity Insulin-dependent diabetes mellitus Sliding scale insulin, resume long acting insulin Fall precautions dementia depression Bipolar malnutrition anemia chronic pain CAD hyperlipidemia constipation Resume appropriate home meds DVT prophylaxis Lovenox Diet n.p.o. except ice chips Discharge Plan: Snf - Advance Directives Does patient have a Living Will: No Does patient have a Durable POA for Healthcare: No - Code Status/Comfort Care Code Status: Full Code Physician Review: Patient Assessed, Agree with Above Assessment and Plan Critical Care: Yes Time Spent Managing Pts Care (In Minutes): 70
[2023-08-14] MEDS ORDERED: D10W 250 ML BAG IV PRN (17:36)
[2023-08-14] MEDS ORDERED: GLUCAGON 1 MG/VIAL IM PRN (17:36)
[2023-08-14] MEDS ORDERED: ALBUTEROL 2.5 MG/3 ML NEB SOL NEB PRN (17:37)
[2023-08-14] MEDS ORDERED: IPRATROPIUM BROM 0.5MG/2.5ML NEB PRN (17:37)
--- NOTE | 2023-08-14 19:36 | P.HP ---
Date of Service: 08/14/23 Patient seen and examined. Patient is lethargic and difficult to arouse. Arouses to sternal rub. BiPAP settings increased to 20/9 with a rate of 20. Patient is hypercapnic respiratory failure. Patient had fever and lactic acidosis. Her chart has been reviewed. Patient with morbid obesity with weight greater than 500 pounds. Not really able to do any substantial testing at our hospital for her. At this point, we will go ahead and treat her with antibiotics. We will keep her on BiPAP support. Repeat ABGs. Ordered for 20 00. As we are a small facility with limited capabilities safest thing to do would be to monitor her in ICU for the first 24 hours. If she does well and her ABGs improve and we can downgrade her to a general medical floor bed. Patient remains on BiPAP support at this time. Patient also has a history of bipolar disorder and depression. I am not sure if she is overmedicated. We will continue to evaluate her closely as she tends to become very lethargic. Patient will be admitted for inpatient hospitalization in the intensive care unit. We will get pulmonary consultation on board as well. Patient may benefit from acetazolamide. We will encourage patient to get out of bed into a chair. Patient's prognosis remains very poor with her morbid obesity. She may benefit from GLP-1 agonist for weight loss. Assessment and Plan - Plan Assessment plan Acute hypoxic respiratory failure secondary to COPD exacerbation versus acute on chronic heart failure Respiratory acidosis Lactic acidosis Pulmonary consult, BiPAP, repeat ABG, ABG in the a.m. trend lactic Nebs, resume home Lasix, ceftriaxone, azithromycin ABG pH 7.30, CO2 81.3, H CO 338.5, elevated lactic 2.6, BNP 225, SARS negative, chest x-ray mild to moderate CHF, moderate interstitial pulmonary edema suspected Morbid obesity Insulin-dependent diabetes mellitus Sliding scale insulin, resume long acting insulin Fall precautions dementia depression Bipolar malnutrition anemia chronic pain CAD hyperlipidemia constipation Resume appropriate home meds DVT prophylaxis Lovenox Diet n.p.o. except ice chips Discharge Plan: Snf - Advance Directives Does patient have a Living Will: No Does patient have a Durable POA for Healthcare: No - Code Status/Comfort Care Code Status: Full Code Physician Review: Patient Assessed, Agree with Above Assessment and Plan Critical Care: Yes Time Spent Managing Pts Care (In Minutes): 70
[2023-08-14] MEDS: acetaZOLAMIDE 250 MG TAB PO SCH (21:00)
[2023-08-14] MEDS ORDERED: ONDANSETRON 4 MG/2 ML VIAL IV PRN (21:20)
[2023-08-14] MEDS ORDERED: INSULIN GLARGINE 100 UNIT/ML SQ SCH (21:20)
[2023-08-14 21:27] LABS: Blood Gas Oxyhemoglobin 93.2 % (94-97); Blood O2 Saturation 96.5 % (92-98.5)
[2023-08-14] MEDS ORDERED: ACETAMINOPHEN 325 MG/SUPP PR ONE (21:27)
[2023-08-14] MEDS ORDERED: ACETAMINOPHEN 650MG/RECT SUPP PR ONE (21:28)
[2023-08-14] MEDS ORDERED: KETOROLAC 30 MG/ML INJ ONE (21:28)
[2023-08-14] MEDS: INSULIN REGULAR (HUMAN) 100 UNIT/ML SQ SCH (22:48)
[2023-08-14] MEDS: METHYLPREDNISOLONE 125 MG INJ IV SCH (22:49)
[2023-08-14] MEDS: FUROSEMIDE 40 MG/4 ML VIAL IV SCH (22:49)
[2023-08-15] MEDS: METHYLPREDNISOLONE 125 MG INJ IV SCH ×2 (05:34→11:56)
[2023-08-15 05:44] LABS: Blood Gas Oxyhemoglobin 92.3 % (94-97)
[2023-08-15 06:20] LABS: Absolute Lymphocytes (CBC) 0.5 K/uL (0.7-4.9); Hematocrit 32.7 % (36.0-45.0); Lymphocytes % 8.6 % (15.3-44.8); MCV 89.1 fL (80-100); MPV 7.8 fL (7.6-11.3); Platelets 220 thou/uL (152-406); RBC Red Blood Cell Count 3.67 M/uL (3.86-4.86)
[2023-08-15 06:27] LABS: Magnesium 1.9 mg/dL (1.6-2.4); Potassium 4.7 mEq/L (3.5-5.1); Troponin High Sensitivity 4.8 pg/mL (<58.9)
[2023-08-15] MEDS ORDERED: INSULIN GLARGINE 100 UNIT/ML SQ SCH (09:00)
[2023-08-15] MEDS: acetaZOLAMIDE 250 MG TAB PO SCH ×2 (09:02→20:39)
[2023-08-15] MEDS: INSULIN REGULAR (HUMAN) 100 UNIT/ML SQ SCH ×4 (09:02→20:38)
[2023-08-15] MEDS: FUROSEMIDE 40 MG/4 ML VIAL IV SCH (09:06)
[2023-08-15] MEDS ORDERED: INSULIN GLARGINE 100 UNIT/ML SQ STA (10:28)
--- NOTE | 2023-08-15 11:58 | P.CNS ---
Date of Consult: 08/15/23 Reason for Consult: Altered mental status respiratory failure Chief Complaint: Shortness of breath History of Present Illness: Patient is 48 years of age with a history of toxic hypercapnic respiratory failure metabolic syndrome found to be unresponsive currently has a BiPAP only responsive in the ICU. With an acidosis Allergies adhesive tape Adverse Reaction (Intermediate, Verified 03/26/22 06:12) Nausea/Vomiting codeine Adverse Reaction (Intermediate, Verified 03/26/22 06:12) Nausea/Vomiting Home Medications: Aspirin [Aspirin EC 81 MG] 81 mg PO DAILY 03/26/22 Atorvastatin Calcium 40 mg PO BEDTIME 03/26/22 Benztropine Mesylate 1 mg PO BID 03/26/22 Docusate [Colace Cap*] 100 mg PO BID 03/26/22 Ergocalciferol (Vitamin D2) [Vitamin D2] 50,000 unit PO Q7D 03/26/22 Ferrous Sulfate 325 mg PO DAILY 03/26/22 Fexofenadine HCl [Jeri Allergy] 180 mg PO DAILY 03/26/22 Folic Acid 0.4 mg PO DAILY 03/26/22 Furosemide 80 mg PO DAILY 03/26/22 Gabapentin 300 mg PO TID 03/26/22 Metformin HCl [Glucophage*] 500 mg PO BID 03/26/22 Spironolactone [Aldactone*] 25 mg PO DAILY tab 03/31/22 Calcium Carbonate [Tums Regular*] 750 mg PO BID 03/15/23 Sertraline [Zoloft*] 100 mg PO DAILY 03/15/23 Albuterol Neb [Proventil 0.083% Neb Soln] 2.5 mg NEB [id number] amp 03/18/23 Insulin -Regular Human [Novolin -R*] See Protocol SQ ACHS ml 03/18/23 Ipratropium Neb [Atrovent*] 0.5 mg NEB [id number] amp 03/18/23 Insulin Glargine,Hum.rec.anlog [Insulin Glargine] 44 units SQ BEDTIME 08/15/23 Lidocaine 4% Patch [Lidoderm 5% Patch*] 1 patch TD DAILY 08/15/23 Potassium Chloride [K-Tab ER] 20 meq PO DAILY 08/15/23 - Past Medical/Surgical History Diabetic: Yes -: COPD -: DMII -: morbid obesity -: Asthma -: laporoscopic tubal ligation Psychosocial/ Personal History: Patient is resident of assisted - Family History Father Medical History: Heart disease, Diabetes Mother Medical History: Heart disease, Diabetes - Social History Alcohol use: No CD- Drugs: No Caffeine use: Yes Place of Residence: Jail Review of Systems Respiratory: Shortness of Breath Cardiovascular: Edema Physical Examination Temp Pulse Resp BP Pulse Ox 97.7 F 59 17 152/77 H 97 08/15/23 08:00 08/15/23 10:00 08/15/23 10:00 08/15/23 10:00 08/15/23 10:00 General: Alert, Cooperative Respiratory: Clear to auscultation bilaterally, Diminished Cardiovascular: Regular rate/rhythm, Normal S1 S2, Edema Gastrointestinal: Normal bowel sounds, Soft and benign, Non-distended, No tenderness Laboratory Data (last 24 hrs) 08/14/23 08/14/23 08/14/23 16:20 16:20 16:20 WBC 7.60 Hgb 11.0 L Hct 33.6 L Plt Count 236 PT 11.5 INR 1.05 APTT 28.3 Sodium 134 L Potassium 4.3 BUN 10 Creatinine 0.75 Glucose 281 H Total Bilirubin 0.5 AST 19 ALT 21 Alkaline Phosphatase 81 - Problems (1) Respiratory failure with hypoxia and hypercapnia Current Visit: No Status: Acute Plan: Patient is 48 years of age admitted with acute on chronic hypoxemia hypercapnia respiratory failure debility obesity hypoventilation syndrome chest x-ray shows some cardiomegaly interstitial changes BNP is normal bicarbonate is elevated mild normocytic anemia avoid Lasix carbonate is elevated add spironolactone and Diamox blood pressure is mildly elevated titrate sat to 88 to 90% add Brovana continue with bronchodilators Qualifiers: Chronicity: acute on chronic Qualified Code(s): J96.21 - Acute and chronic respiratory failure with hypoxia; J96.22 - Acute and chronic respiratory failure with hypercapnia
--- NOTE | 2023-08-15 14:42 | P.PN ---
Subjective Date of Service: 08/15/23 Chief Complaint: Shortness of breath Patient on BiPAP, lethargic, with elevated CO2 from acute hypoxic hypercarbic respiratory failure Responds to verbal stimuli currently n.p.o. Review of Systems 10-point ROS is otherwise unremarkable Physical Examination - Vital Signs Temperature: 98.9 F Blood Pressure: 130/68 Pulse: 60 Respirations: 19 Pulse Ox (%): 91 - Physical Exam General: Mild distress, Other (Drowsy, morbid obesity) HEENT: Atraumatic, Normocephalic, PERRLA Neck: 2+ carotid pulse no bruit, JVD not distended Respiratory: Diminished Cardiovascular: Regular rate/rhythm, Normal S1 S2 Gastrointestinal: Other (Obese abdomen) Musculoskeletal: No clubbing, No swelling Neurological: Other (Eyes open to verbal stimulation, follows some commands) - Studies Laboratory Data (last 24 hrs) 08/14/23 08/14/23 08/14/23 16:20 16:20 16:20 WBC 7.60 Hgb 11.0 L Hct 33.6 L Plt Count 236 PT 11.5 INR 1.05 APTT 28.3 Sodium 134 L Potassium 4.3 BUN 10 Creatinine 0.75 Glucose 281 H Total Bilirubin 0.5 AST 19 ALT 21 Alkaline Phosphatase 81 Microbiology Data (last 24 hrs): 08/14/23 16:06 Nasopharnyx Influenza Type A Antigen Screen - Final 08/14/23 16:06 Nasopharnyx Influenza Type B Antigen Screen - Final Assessment And Plan - Plan Assessment plan Acute hypoxic respiratory failure secondary to COPD exacerbation versus acute on chronic heart failure Respiratory acidosis Lactic acidosis Pulmonary consult, BiPAP, repeat ABG, ABG in the a.m. trend lactic Nebs, resume home Lasix, Diamox added, ceftriaxone, azithromycin ABG pH 7.30, CO2 81.3, H CO 38.5, elevated lactic 2.6, BNP 225, SARS negative, chest x-ray mild to moderate CHF, moderate interstitial pulmonary edema suspected Morbid obesity Insulin-dependent diabetes mellitus Sliding scale insulin, resume long acting insulin Fall precautions dementia depression Bipolar malnutrition anemia chronic pain CAD hyperlipidemia constipation Resume appropriate home meds DVT prophylaxis Lovenox Diet n.p.o. Discharge Plan: Detention - Code Status/Comfort Care Code Status: Full Code Physician Review: Patient Assessed, Agree with Above Assessment and Plan Critical Care: Yes Time Spent Managing PTS Care (In Minutes): 70
[2023-08-15] MEDS ORDERED: AZITHROMYCIN IV 500 MG in NA CHLORIDE 0.9% 250 ML IVPB SCH (16:00)
[2023-08-15] MEDS ORDERED: CEFTRIAXONE 1,000 MG in NA CHLORIDE 0.9% 50 ML IVPB SCH (18:00)
[2023-08-15] MEDS: ARFORMOTEROL TARTRATE 15 MCG/2 ML VIAL.NEB NEB SCH (19:14)
[2023-08-15] MEDS: SPIRONOLACTONE 25 MG TABLET PO SCH (20:39)
[2023-08-15] MEDS: predniSONE 20 MG TAB PO SCH (20:39)
[2023-08-15] MEDS: GABAPENTIN 300 MG CAP PO SCH (21:35)
[2023-08-16 06:02] LABS: Hematocrit 32.6 % (36.0-45.0); Lymphocytes % 13.5 % (15.3-44.8); MCV 89.8 fL (80-100); MPV 8.2 fL (7.6-11.3); Platelets 252 thou/uL (152-406); RBC Red Blood Cell Count 3.63 M/uL (3.86-4.86)
[2023-08-16 06:02] LABS: Arterial Blood Carboxyhemoglob 1.6 % (0-1.5); Blood Gas Oxyhemoglobin 93.9 % (94-97); Blood O2 Saturation 96.5 % (92-98.5)
[2023-08-16 06:15] LABS: Magnesium 2.2 mg/dL (1.6-2.4); Potassium 4.1 mEq/L (3.5-5.1); Troponin High Sensitivity 4.8 pg/mL (<58.9)
[2023-08-16 06:34] VITALS: BMI 83.0
--- NOTE | 2023-08-16 07:15 | P.PN ---
Subjective Date of Service: 08/16/23 Chief Complaint: Shortness of breath Patient on BiPAP, lethargic, with elevated CO2 from acute hypoxic hypercarbic respiratory failure Responds to verbal stimuli currently n.p.o. Review of Systems 10-point ROS is otherwise unremarkable Physical Examination - Vital Signs Temperature: 97.4 F Blood Pressure: 121/63 Pulse: 76 Respirations: 20 Pulse Ox (%): 96 - Physical Exam General: Alert, In no apparent distress, Oriented x3, Obese HEENT: Atraumatic, Normocephalic Neck: Supple, 2+ carotid pulse no bruit Respiratory: Normal air movement, Diminished Cardiovascular: Normal pulses, Regular rate/rhythm, Normal S1 S2 Capillary refill: <2 Seconds Gastrointestinal: Normal bowel sounds, Other (obese) Musculoskeletal: No clubbing, No swelling Integumentary: No rashes, No breakdown Neurological: Normal speech, Normal strength at 5/5 x4 extr, Sensation intact Assessment And Plan - Plan Assessment plan Acute hypoxic respiratory failure secondary to COPD exacerbation versus acute on chronic heart failure Respiratory acidosis Lactic acidosis Pulmonary consult, BiPAP, repeat ABG, ABG in the a.m. trend lactic Nebs, resume home Lasix, Diamox added, ceftriaxone, azithromycin ABG pH 7.30, CO2 81.3, H CO 38.5, elevated lactic 2.6, BNP 225, SARS negative, chest x-ray mild to moderate CHF, moderate interstitial pulmonary edema suspected Morbid obesity Insulin-dependent diabetes mellitus Sliding scale insulin, resume long acting insulin Fall precautions dementia depression Bipolar malnutrition anemia chronic pain CAD hyperlipidemia constipation Resume appropriate home meds DVT prophylaxis Lovenox Diet n.p.o. Physician Review: Patient Assessed, Agree with Above Assessment and Plan
[2023-08-16] MEDS: ARFORMOTEROL TARTRATE 15 MCG/2 ML VIAL.NEB NEB SCH (07:40)
[2023-08-16] MEDS: SPIRONOLACTONE 25 MG TABLET PO SCH (08:12)
[2023-08-16] MEDS: INSULIN REGULAR (HUMAN) 100 UNIT/ML SQ SCH ×3 (08:12→17:10)
[2023-08-16] MEDS: acetaZOLAMIDE 250 MG TAB PO SCH (08:12)
[2023-08-16] MEDS: predniSONE 20 MG TAB PO SCH (08:12)
[2023-08-16] MEDS: GABAPENTIN 300 MG CAP PO SCH ×2 (08:15→14:10)
[2023-08-16] MEDS ORDERED: INSULIN GLARGINE 100 UNIT/ML SQ SCH (09:00)
--- NOTE | 2023-08-16 10:26 | P.DS ---
Admission Date: 08/14/23 Discharge Date: 08/16/23 Disposition: TRANSFER TO RESIDENTIAL Discharge Condition: FAIR Reason for Admission: Shortness of breath Consultations: Dr. Walsh, pulmonary in -2 weeks - Problems (1) Respiratory failure with hypoxia and hypercapnia Current Visit: No Status: Acute Qualifiers: Chronicity: acute on chronic Qualified Code(s): J96.21 - Acute and chronic respiratory failure with hypoxia; J96.22 - Acute and chronic respiratory failure with hypercapnia Brief History of Present Illness: 48-year-old female with history of acute hypoxic respiratory failure with hypercapnia, COPD, CHF, dementia, diabetes with history of HH NK, depression, morbid obesity, malnutrition, anemia, chronic pain, CAD, hyperlipidemia, constipation, bipolar, presents to the emergency room via EMS from [facility]. Patient reports chronic shortness of breath worse over the last week. She denies chest pain, abdominal pain, fever, nausea vomiting diarrhea. Reports using home BiPAP. ER course EKG shows normal sinus rhythm, rate of 93, no acute ST segment elevations, nonconcerning intervals.ED course: ABG with a respiratory acidosis, ABG pH 7.30, CO2 81.3, H CO 338.5, mild hyponatremia at 134, elevated lactic 2.6, BNP 225, SARS negative, chest x-ray mild to moderate CHF, moderate interstitial pulmonary edema suspected - Physical Exam General: Awake and alert oriented x3 no respiratory distress HEENT: Atraumatic, Normocephalic, PERRLA Neck: 2+ carotid pulse no bruit, JVD not distended Respiratory: Normal air movement diminished Cardiovascular: Regular rate/rhythm, Normal S1 S2 Gastrointestinal: Other (Obese abdomen) Musculoskeletal: No clubbing, No swelling Neurological: Awake and alert Psychological stable mood Hospital Course: Patient was admitted to ICU on BiPAP for acute hypoxic hypercarbic respiratory failure, acute on chronic. Patient had daily ABGs, seen by pulmonary, chest x- ray shows some mild cardiomegaly, interstitial changes with BNP. Bicarb is normal, per pulmonary recommended to avoid Lasix, patient is on spironolactone and Diamox for blood pressure. Continue Brovana continue with bronchodilators and bronchodilators. Recommend CPAP at bedtime and as needed while sleeping. Follow-up with pulmonary after discharge. Patient is tolerating p.o. diet, she reports chronic bedrest while in intermediate. Incentive was spirometer ordered while inpatient to encourage deep breathing. She denies getting out of bed with physical therapy. Diabetes resume home sliding scale and long-term insulin with Accu-Cheks. Vital Signs/Physical Exam: Temp Pulse Resp BP Pulse Ox 97.4 F 55 20 121/63 98 08/16/23 07:14 08/16/23 08:12 08/16/23 07:14 08/16/23 07:14 08/16/23 08:00 Laboratory Data at Discharge: WBC 7.50 thou/uL (4.3-10.9) 08/16/23 05:38 Hgb 10.5 g/dL (12.0-15.0) L 08/16/23 05:38 Hct 32.6 % (36.0-45.0) L 08/16/23 05:38 Plt Count 252 thou/uL (152-406) 08/16/23 05:38 PT 11.5 SECONDS (9.5-12.5) 08/14/23 16:20 INR 1.05 08/14/23 16:20 APTT 28.3 SECONDS (24.3-36.9) 08/14/23 16:20 Sodium 134 mEq/L (136-145) L 08/16/23 05:38 Potassium 4.1 mEq/L (3.5-5.1) 08/16/23 05:38 BUN 18 mg/dL (7-18) 08/16/23 05:38 Creatinine 0.87 mg/dL (0.55-1.02) 08/16/23 05:38 Glucose 356 mg/dL (74-106) H 08/16/23 05:38 Phosphorus 2.7 mg/dL (2.5-4.9) 08/16/23 05:38 Magnesium 2.2 mg/dL (1.6-2.4) 08/16/23 05:38 Total Bilirubin 0.5 mg/dL (0.2-1.0) 08/14/23 16:20 AST 19 U/L (15-37) 08/14/23 16:20 ALT 21 U/L (13-56) 08/14/23 16:20 Alkaline Phosphatase 81 U/L (45-117) 10/30/23 16:20 Home Medications: Aspirin [Aspirin EC 81 MG] 81 mg PO DAILY 03/26/22 Atorvastatin Calcium 40 mg PO BEDTIME 03/26/22 Benztropine Mesylate 1 mg PO BID 03/26/22 Docusate [Colace Cap*] 100 mg PO BID 03/26/22 Ergocalciferol (Vitamin D2) [Vitamin D2] 50,000 unit PO Q7D 03/26/22 Ferrous Sulfate 325 mg PO DAILY 03/26/22 Fexofenadine HCl [Jeri Allergy] 180 mg PO DAILY 03/26/22 Folic Acid 0.4 mg PO DAILY 03/26/22 Furosemide 80 mg PO DAILY 03/26/22 Gabapentin 300 mg PO TID 03/26/22 Metformin HCl [Glucophage*] 500 mg PO BID 03/26/22 Spironolactone [Aldactone*] 25 mg PO DAILY tab 03/31/22 Calcium Carbonate [Tums Regular*] 750 mg PO BID 03/15/23 Sertraline [Zoloft*] 100 mg PO DAILY 03/15/23 Albuterol Neb [Proventil 0.083% Neb Soln] 2.5 mg NEB [id number] amp 03/18/23 Insulin -Regular Human [Novolin -R*] See Protocol SQ ACHS ml 03/18/23 Insulin Glargine,Hum.rec.anlog [Insulin Glargine] 44 units SQ BEDTIME 08/15/23 Lidocaine 4% Patch [Lidoderm 5% Patch*] 1 patch TD DAILY 08/15/23 Potassium Chloride [K-Tab ER] 20 meq PO DAILY 08/15/23 Arformoterol Tartrate [Brovana] 15 mcg NEB BIDRESP vial.neb 08/16/23 Spironolactone [Aldactone*] 25 mg PO BID tab 08/16/23 predniSONE [Prednisone*] 20 mg PO BID tab 08/16/23 Physician Discharge Instructions: CPAP recommended at bedtime and PRN for hypoxia and lethargy, she has chronic hypoxic, hypercarbic respiratory failure as baseline. Please ensure patient has head elevated, is alert, when feeding medications,with meals to prevent aspiration. resume appropriate home medications, activity as tolerated. Follow up with PCP in [facility] in 7-10 days after discharge. Follow up with Pulmonary in 1-2 weeks after discharge, Diet: ADA Activity: activity as tolerated Followup: NONE,NONE [Primary Care Provider] -
[2023-08-16 10:34] VITALS: TEMP 97.7
--- NOTE | 2023-08-16 12:40 | P.PN ---
Subjective Date of Service: 08/16/23 Chief Complaint: Chronic respiratory failure Subjective: Improving (Patient is improving more responsive apparently she is noncompliant with her CPAP) Review of Systems General: Weakness Respiratory: Shortness of Breath Physical Examination - Vital Signs Temperature: 97.7 F Blood Pressure: 142/73 Pulse: 101 Respirations: 17 Pulse Ox (%): 91 - Physical Exam General: Alert, In no apparent distress, Oriented x3 Respiratory: Clear to auscultation bilaterally, Diminished Cardiovascular: No edema, Regular rate/rhythm Assessment And Plan - Current Problems (Diagnosis) (1) Respiratory failure with hypoxia and hypercapnia Current Visit: No Status: Acute Plan: Patient is 48 years of age admitted with acute on chronic respiratory failure and is not using her BiPAP at home patient claims that she does not have enough space by the mask fits well, chemistries reviewed vital signs oxygenation satisfactory medication list not reconciled oxygenation satisfactory stable for discharge Qualifiers: Chronicity: acute on chronic Qualified Code(s): J96.21 - Acute and chronic respiratory failure with hypoxia; J96.22 - Acute and chronic respiratory failure with hypercapnia Physician Review: Patient Assessed, Agree with Above Assessment and Plan
--- NOTE | 2023-08-16 16:20 | P.PN ---
Subjective Date of Service: 08/16/23 Chief Complaint: Chronic respiratory failure Subjective: No new changes, Improving, Doing well Awake and alert, sitting up in bed eating lunch. Verbalizes feeling better. Review of Systems 10-point ROS is otherwise unremarkable Physical Examination - Vital Signs Temperature: 97.7 F Blood Pressure: 151/90 Pulse: 51 Respirations: 22 Pulse Ox (%): 96 - Physical Exam General: Alert, In no apparent distress, Oriented x3, Obese HEENT: Atraumatic, Normocephalic Neck: Supple, 2+ carotid pulse no bruit Respiratory: Normal air movement, Diminished Cardiovascular: Regular rate/rhythm, Normal S1 S2 Gastrointestinal: Normal bowel sounds, Other (Obese) Musculoskeletal: No clubbing, No swelling, Other (Moderate to severe generalized weakness, chronic bedrest) Integumentary: No rashes, No breakdown Neurological: Normal speech, Normal strength at 5/5 x4 extr, Normal tone Assessment And Plan - Plan - Plan Assessment plan Acute hypoxic respiratory failure secondary to COPD exacerbation versus acute on chronic heart failure Respiratory acidosis Lactic acidosis Pulmonary consult, BiPAP, repeat ABG, ABG in the a.m. trend lactic Nebs, resume home Lasix, Diamox added, ceftriaxone, azithromycin ABG pH 7.30, CO2 81.3, H CO 38.5, elevated lactic 2.6, BNP 225, SARS negative, chest x-ray mild to moderate CHF, moderate interstitial pulmonary edema suspected COVID ordered, negative test needed to return to facility Morbid obesity Insulin-dependent diabetes mellitus Sliding scale insulin, resume long acting insulin Fall precautions dementia depression Bipolar malnutrition anemia chronic pain CAD hyperlipidemia constipation Resume appropriate home meds DVT prophylaxis Lovenox Diet n.p.o. Discharge Plan: [facility] Discharge Plan: [facility] - Code Status/Comfort Care Code Status: Full Code Physician Review: Patient Assessed, Agree with Above Assessment and Plan Critical Care: No Time Spent Managing PTS Care (In Minutes): 35
[2023-08-16 17:59] VITALS: O2SAT 95
--- NOTE | 2023-08-16 18:08 | EKG ---
Test Date: 2023-08-14 Test Time: 15:50:41 Hr Specialist: ANGEL MEASUREMENT RESULTS: Intervals: Rate: 93 SC: 184 QRSD: 98 QT: 380 QTc: 472 [place]: P: 59 SC: 184 QRS: 68 T: 64 INTERPRETIVE STATEMENTS: Normal sinus rhythm Normal ECG Compared to ECG 03/14/2023 12:39:34 Right-axis deviation no longer present ST (T wave) deviation no longer present Electronically Signed On 08-16-23 18:04:27 CDT by Marlon Cervantes
[2023-08-16 19:38] VITALS: BP 146/74
== END 2023-08-16 19:55 | DRG 189 ==
LOC: ER 15:42 → ERHOLD 17:18 → 3RD-ICU 20:16
PROVIDERS: ADMIT Hospitalist; ATTEND Hospitalist
PROC: 5A09457 Assistance with Respiratory Ventilation, 24-96 Consecutive Hours, Continuous Positive Airway Pressure (ICD-10-PCS; principal; 2023-08-14)
DX: J96.21 Acute and chronic respiratory failure with hypoxia (principal); J44.1 Chronic obstructive pulmonary disease with (acute) exacerbation; E87.1 Hypo-osmolality and hyponatremia; E87.29 Other acidosis; F03.93 Unspecified dementia, unspecified severity, with mood disturbance; E46 Unspecified protein-calorie malnutrition; Z68.45 Body mass index [BMI] 70 or greater, adult; J96.22 Acute and chronic respiratory failure with hypercapnia; E66.01 Morbid (severe) obesity due to excess calories; E11.9 Type 2 diabetes mellitus without complications; E78.5 Hyperlipidemia, unspecified; I11.0 Hypertensive heart disease with heart failure; I50.9 Heart failure, unspecified; F31.9 Bipolar disorder, unspecified; K59.00 Constipation, unspecified; K21.9 Gastro-esophageal reflux disease without esophagitis; I25.10 Atherosclerotic heart disease of native coronary artery without angina pectoris; Z88.5 Allergy status to narcotic agent; Z88.1 Allergy status to other antibiotic agents; Z88.8 Allergy status to other drugs, medicaments and biological substances; Z79.4 Long term (current) use of insulin; Z79.84 Long term (current) use of oral hypoglycemic drugs; Z79.82 Long term (current) use of aspirin; Z98.51 Tubal ligation status; Z79.52 Long term (current) use of systemic steroids; Z11.52 Encounter for screening for COVID-19; Z99.89 Dependence on other enabling machines and devices; Z79.899 Other long term (current) drug therapy; Z91.048 Other nonmedicinal substance allergy status; Z91.199 Patient's noncompliance with other medical treatment and regimen due to unspecified reason
CPT/HCPCS: 31720; 36415; 36600; 71045; 80048; 80053; 82805; 82947; 83605; 83735; 83880; 84100; 84145; 84443; 84484; 85025; 85610; 85730; 87040; 87635; 87804; 93005; 94010; 94660; 94799; 99285; J0696; J1815; J1940; J2930; J7030; J7050; J7512; J7605; J7613; J7644

== ENCOUNTER 2023-08-18 20:14 | Inpatient (IN) | payer OTHER ==
--- OUTSIDE RECORDS SUMMARY | 2023-08-18 20:22 | XMS REPORT | Continuity of Care Document ---
:[address] [facility] t Address [address] [facility] [address] [place] [id number] Care Team Providers Name Role Phone GC_BAHC_Todd_J Attending Clinician Unavailable KNOW, DOES_NOT Attending Clinician Unavailable UNKNOWN Attending Clinician Unavailable Jojo Villalpando Attending Clinician [phone] Dennis Talley Attending Clinician [phone] GC_BAHC_Spangler_G Attending Clinician Unavailable PILAR GOMEZ Attending [...] Expiration Date [facility] - [id number] [place] [id number] [place] Problems Condition Condition Condition Status Onset [...] Date Date Medication? Clinician (SIG) Name Name Colace 100 Colace 100 No 1capsul Q1D [...] Q6H ipratropiu [facility] bromide bromide m bromide [facility] 0.02 % 0.02 % 0.02 % [...] by inhalation inhalation inhalation route. route. route. Albuterol Albuterol Yes [address] [facility] HFA Inhaler HFA Inhaler every 6 [facility] 90 90 hours as [facility] mcg/actuati mcg/actuati needed. l on on (as needed (LUF/LI for V/SA) shortness of breath or wheezing) lactulose lactulose No lactulose [facility] 10 gram/15 [...] affected skin TID skin TID skin TID aripiprazol aripiprazol Yes 10mg 1xD orally [facility] [...] every day route. route. by oral route. Aspirin Aspirin Yes 81mg 1xD orally [facility] (LUF/LI V/SA) furosemide furosemide No furosemide [...] days. 30 days. route for 30 days. atorvastati atorvastati Yes 40mg 1xD orally [facility] n 40 MG n 40 MG daily [facility] Oral Tablet Oral Tablet M [facility] l (LUF/LI V/SA) spironolact spironolact No spironolac [facility] one 25 [...] 2xD inhaled [address] [facility] times per [facility] day [facility] (LUF/LI V/SA) gabapentin gabapentin No 1capsul TID gabapentin [facility] [...] days. 30 days. route for 30 days. lasix lasix Yes [address] [facility] daily [facility] (LUF/LI V/SA) Symbicort Symbicort No 2puff(s BID Symbicort [facility] [...] by oral by oral route. route. route. Lisinopril Lisinopril Yes 5mg 1xD orally [facility] 5 MG Oral 5 MG Oral daily [facility] Tablet Tablet [facility] (LUF/LI V/SA) furosemide furosemide No furosemide [...] skin TID skin TID skin TID Jeri Ejri No 1 Q1D Jeri [facility] Allergy 180 [...] Oral Tablet Oral Tablet l (LUF/LI V/SA) aripiprazol aripiprazol No aripiprazo [facility] e 10 [...] 30 days. oral route for 30 days. predniSONE predniSONE Yes [address] [facility] 10 mg 10 mg package [facility] directions [facility] (2 pills a l day for 1 (LUF/LI day then 1 V/SA) pill a day for 1 day then 1/2 pill a day for 1 day and then stop) Nystop Nystop No Nystop [facility] 100,000 100,000 [...] Q6H ipratropiu [facility] bromide bromide m bromide [facility] jack 0.02 % 0.02 % 0.02 [...] Q6H ipratropiu [facility] bromide bromide m bromide [facility] jack 0.02 % 0.02 % 0.02 [...] Q6H ipratropiu [facility] bromide bromide m bromide [facility] jack 0.02 % 0.02 % 0.02 [...] route. route. ergocalcife ergocalcife No ergocalcif [facility] (vitamin (vitamin (vitamin D2) 1,250 D2) [...] route. route. ergocalcife ergocalcife No ergocalcif [facility] (vitamin (vitamin (vitamin D2) 1,250 D2) [...] route. route. ergocalcife ergocalcife No ergocalcif [facility] (vitamin (vitamin (vitamin D2) 1,250 D2) [...] route. route. ergocalcife ergocalcife No ergocalcif [facility] (vitamin (vitamin (vitamin D2) 1,250 D2) [...] Q6H ipratropiu [facility] bromide bromide m bromide [facility] 0.02 % 0.02 % 0.02 % [...] a route. route. day by inhalation route. Vital Signs Vital Name Observation Time Observation Value Comments Source BP Diastolic 2023-02-21 00:00:00 63 mm[Hg] [facility] Height 2023-02-21 00:00:00 66 [in_i] [facility] BMI (Body Mass Index) 2023-02-21 00:00:00 76.5 kg/m2 [facility] BP Systolic 2023-02-21 00:00:00 118 mm[Hg] [facility] Body Weight 2023-02-21 00:00:00 7588 [oz_av] [facility] BP Diastolic 2023-02-07 00:00:00 74 mm[Hg] [facility] Height 2023-02-07 00:00:00 66 [in_i] [facility] BMI (Body Mass Index) 2023-02-07 00:00:00 76.5 kg/m2 [facility] BP Systolic 2023-02-07 00:00:00 128 mm[Hg] [facility] Body Weight 2023-02-07 00:00:00 7588 [oz_av] [facility] BP Diastolic 2023-01-31 00:00:00 79 mm[Hg] [facility] Height 2023-01-31 00:00:00 66 [in_i] [facility] BMI (Body Mass Index) 2023-01-31 00:00:00 76.5 kg/m2 [facility] BP Systolic 2023-01-31 00:00:00 134 mm[Hg] [facility] Body Weight 2023-01-31 00:00:00 7584 [oz_av] [facility] BP Diastolic 2023-01-18 00:00:00 64 mm[Hg] [facility] Height 2023-01-18 00:00:00 66 [in_i] [facility] BMI (Body Mass Index) 2023-01-18 00:00:00 77.8 kg/m2 [facility] BP Systolic 2023-01-18 00:00:00 124 mm[Hg] [facility] Body Weight 2023-01-18 00:00:00 7712 [oz_av] [facility] BP Diastolic 2022-12-14 00:00:00 71 mm[Hg] [facility] Height 2022-12-14 00:00:00 66 [in_i] [facility] BMI (Body Mass Index) 2022-12-14 [...] edical Body Weight 2022-08-05 00:00:00 8114 [oz_av] [facility] BP Diastolic 2022-07-05 00:00:00 74 [...] M edical Height 2022-05-12 00:00:00 66 [in_i] [facility] BMI (Body Mass Index) 2022-05-12 [...] Medical BP Systolic 2022-04-05 00:00:00 125 mm[Hg] [facility] Body Weight 2022-04-05 00:00:00 8168 [oz_av] [facility] BP Diastolic 2022-04-01 00:00:00 73 mm[Hg] [facility] Height 2022-04-01 00:00:00 66 [in_i] [...] edical BP Diastolic 2022-03-11 00:00:00 87 mm[Hg] [facility] Height 2022-03-11 00:00:00 66 [in_i] [facility] BMI (Body Mass Index) 2022-03-11 00:00:00 82.4 kg/m2 [facility] BP Systolic 2022-03-11 00:00:00 131 mm[Hg] [facility] Body Weight 2022-03-11 00:00:00 8168 [oz_av] [facility] BP Diastolic 2022-02-15 00:00:00 60 mm[Hg] [facility] Height 2022-02-15 00:00:00 66 [in_i] [facility] BMI (Body Mass Index) 2022-02-15 00:00:00 82.2 kg/m2 [facility] BP Systolic 2022-02-15 00:00:00 121 mm[Hg] [facility] Body Weight 2022-02-15 00:00:00 8148 [oz_av] [facility] BP Diastolic 2022-01-27 00:00:00 63 mm[Hg] [facility] Height 2022-01-27 00:00:00 66 [in_i] [facility] BMI (Body Mass Index) 2022-01-27 00:00:00 82.2 kg/m2 [facility] BP Systolic 2022-01-27 00:00:00 112 mm[Hg] [facility] Body Weight 2022-01-27 00:00:00 8150 [oz_av] [facility] BP Diastolic 2022-01-25 00:00:00 61 mm[Hg] [facility] Height 2022-01-25 00:00:00 66 [in_i] [facility] BMI (Body Mass Index) 2022-01-25 00:00:00 82.2 kg/m2 [facility] BP Systolic 2022-01-25 00:00:00 100 [facility]Hg] [facility] 2022-01-25 00:00:00 8150.4 [oz_av] [facility] Height 2020-02-27 12:35:00 167.64 CM Weight 2020-02-27 12:35:00 269.43 KG Body Temperature 2020-02-27 12:35:00 98 [degF] [facility] (LUF/JOHNSON/SA) Pulse Rate 2020-02-27 12:35:00 94 /min [facility] (LUF/JOHNSON/SA) Respiratory Rate 2020-02-27 12:35:00 18 /min [facility] (LUF/JOHNSON/SA) O2% BldC Oximetry 2020-02-27 12:35:00 97 % [facility] (LUF/JOHNSON/SA) BP Systolic 2020-02-27 12:35:00 124 mm[Hg] [facility] (LUF/JOHNSON/SA) BP Diastolic 2020-02-27 12:35:00 80 mm[Hg] [facility] (LUF/JOHNSON/SA) Height 2020-02-27 12:35:00 66 [in_i] [facility] (LUF/JOHNSON/SA) Weight 2020-02-27 12:35:00 594 [lb_av] [facility] (LUF/JOHNSON/SA) BMI (Body Mass Index) 2020-02-27 12:35:00 96.6 kg/m2 [facility] (LUF/JOHNSON/SA) Pulse Rate 2020-01-31 15:21:00 91 /min [facility] (LUF/JOHNSON/SA) Respiratory Rate 2020-01-31 15:21:00 17 /min [facility] (LUF/JOHNSON/SA) O2% BldC Oximetry 2020-01-31 15:21:00 93 % [facility] (LUF/JOHNSON/SA) BP Systolic 2020-01-31 12:34:00 126 mm[Hg] [facility] (LUF/JOHNSON/SA) BP Diastolic 2020-01-31 12:34:00 72 mm[Hg] [facility] (LUF/JOHNSON/SA) Body Temperature 2020-01-31 12:30:00 96.2 [degF] [facility] (LUF/JOHNSON/SA) Weight 2020-01-31 05:13:00 241 kg [facility] (LUF/JOHNSON/SA) Height 2020-01-26 04:45:00 69 [in_i] [facility] (LUF/JOHNSON/SA) Body Temperature 2020-01-04 18:00:00 98 [degF] [facility] (LUF/JOHNSON/SA) Pulse Rate 2020-01-04 18:00:00 70 /min [facility] (LUF/JOHNSON/SA) Respiratory Rate 2020-01-04 18:00:00 17 /min [facility] (LUF/JOHNSON/SA) O2% BldC Oximetry 2020-01-04 18:00:00 98 % [facility] (LUF/JOHNSON/SA) BP Systolic 2020-01-04 18:00:00 93 mm[Hg] [facility] (LUF/JOHNSON/SA) BP Diastolic 2020-01-04 18:00:00 53 mm[Hg] [facility] (LUF/JOHNSON/SA) Height 2020-01-04 13:35:00 69 [in_i] [facility] (LUF/JOHNSON/SA) Weight 2020-01-04 13:35:00 500 [lb_av] [facility] (LUF/JOHNSON/SA) BMI (Body Mass Index) 2020-01-04 13:35:00 74 kg/m2 [facility] (LUF/JOHNSON/SA) Pulse Rate 2019-11-26 16:18:00 79 /min [facility] (LUF/JOHNSON/SA) Respiratory Rate 2019-11-26 16:18:00 19 /min [facility] (LUF/JOHNSON/SA) O2% BldC Oximetry 2019-11-26 16:18:00 97 % [facility] (LUF/JOHNSON/SA) BP Systolic 2019-11-26 16:18:00 104 mm[Hg] [facility] (LUF/JOHNSON/SA) BP Diastolic 2019-11-26 16:18:00 69 mm[Hg] [facility] (LUF/JOHNSON/SA) Body Temperature 2019-11-26 14:09:00 98.9 [degF] [facility] (LUF/JOHNSON/SA) Height 2019-11-26 14:09:00 69 [in_i] [facility] (LUF/JOHNSON/SA) Weight 2019-11-26 14:09:00 227 kg [facility] (LUF/JOHNSON/SA) BMI (Body Mass Index) 2019-11-26 14:09:00 74.1 kg/m2 [facility] (LUF/JOHNSON/SA) Respiratory Rate 2017-09-15 17:59:00 19 /min [facility] (LUF/JOHNSON/SA) BP Systolic 2017-09-15 17:59:00 139 mm[Hg] [facility] (LUF/JOHNSON/SA) BP Diastolic 2017-09-15 17:59:00 85 mm[Hg] [facility] (LUF/JOHNSON/SA) Body Temperature 2017-09-15 16:28:00 98.6 F [facility] (LUF/JOHNSON/SA) O2% BldC Oximetry 2017-09-15 16:28:00 95 % [facility] (LUF/JOHNSON/SA) Height 2017-09-15 16:28:00 69 in [facility] (LUF/JOHNSON/SA) Weight Measured 2017-09-15 16:28:00 405 lbs [facility] (LUF/JOHNSON/SA) BMI (Body Mass Index) 2017-09-15 16:28:00 59.9 [facility] (LUF/JOHNSON/SA) Procedures Procedure Date / Time Performing Clinician Source Performed ASST W/RESP VENT CON 2020-01-26 00:00:[address] [facility] HR CPAP [facility] (LUF/JOHNSON/SA) Tubal Ligation [facility] Cholecyst[facility] Encounters Start End Encounter Admission Attending Care Care Encounter Source Date/Time Date/Time Type Type Clinicians Facility Department ID 2023-08-18 2023-08-18 Outpatient [facility]_Tod PRIV [facility]IV [id number] [facility] 00:00:00 00:00:00 d_J [id number] Medica l 2023-08-05 2023-08-05 Outpatient [facility]_Tod PRIV [facility] [id number] [facility] 00:00:00 00:00:00 d_J [id number] Medica l 2023-08-04 2023-08-04 Outpatient [facility]_Tod PRIV PR[facility] [id number] [facility] 00:00:00 00:00:00 d_J [id number] Medica l 2023-08-03 2023-08-03 Outpatient [facility]_Tod PRIV PRIV [id number] [facility] 00:00:00 00:00:00 d_J [id number] Medica l 2023-07-31 2023-07-31 Outpatient [facility]_Tod PRIV PR[facility] [id number] [facility] 00:00:00 00:00:00 d_J [id number] Medica l 2023-07-27 2023-07-27 Outpatient [facility]_Tod PRIV PRIV [id number] [facility] 00:00:00 00:00:00 d_J [id number] Medica l 2023-07-25 2023-07-25 Outpatient [facility]_Tod PRIV PRIV [id number] [facility] 00:00:00 00:00:00 d_J [id number] Medica l 2023-07-19 2023-07-19 Outpatient [facility]_Tod PRIV PRIV 239 [id number] [facility] 00:00:00 00:00:00 d_J [id number] Medica l 2023-07-08 2023-07-08 Outpatient [facility]_Tod PRIV PRIV [id number] [facility] 00:00:00 00:00:00 d_J [id number] Medica l 2023-07-05 2023-07-05 Outpatient [facility]_Tod PRIV PRIV [id number] [facility] 00:00:00 00:00:00 d_J [id number] Medica l 2023-06-30 2023-06-30 Outpatient [facility]_Tod PRIV PRIV [id number] [facility] 00:00:00 00:00:00 d_J [id number] Medica l 2023-06-26 2023-06-26 Outpatient [facility]_Tod PRIV PRIV [id number] [facility] 00:00:00 00:00:00 d_J [id number] Medica l 2023-06-26 2023-06-26 Outpatient [facility]_Tod PRIV PRIV [id number] [facility] 00:00:00 00:00:00 d_J [id number] Medica l 2023-06-24 2023-06-24 Outpatient [facility]_Tod PRIV PRIV [id number] [facility] 00:00:00 00:00:00 d_J [id number] Medica l 2023-06-16 2023-06-16 Outpatient [facility]_Tod PRIV PRIV [id number] [facility] 00:00:00 00:00:00 d_J [id number] Medica l 2023-06-12 2023-06-12 Outpatient [facility]_Tod PRIV PRIV [id number] [facility] 00:00:00 00:00:00 d_J [id number] Medica l 2023-06-10 2023-06-10 Outpatient [facility]_Tod PRIV PRIV [id number] [facility] 00:00:00 00:00:00 d_J [id number] Medica l 2023-06-05 2023-06-05 Outpatient [facility]_Tod PRIV PRIV [id number] [facility] 00:00:00 00:00:00 d_J [id number] Medica l 2023-05-24 2023-05-24 Outpatient [facility]_Tod PRIV PRIV [id number] [facility] 00:00:00 00:00:00 d_J [id number] Medica l 2023-05-18 2023-05-18 Outpatient [facility]_Tod PRIV PRIV [id number] [facility] 00:00:00 00:00:00 d_J [id number] Medica l 2023-05-17 2023-05-17 Outpatient [facility]_Tod PRIV PRIV [id number] [facility] 00:00:00 00:00:00 d_J [id number] Medica l 2023-05-11 2023-05-11 Outpatient [facility]_Tod PRIV PRIV [id number] [facility] 00:00:00 00:00:00 d_J [id number] Medica l 2023-05-09 2023-05-09 Outpatient [facility]_Tod PRIV PRIV [id number] [facility] 00:00:00 00:00:00 d_J [id number] Medica l 2023-05-05 2023-05-05 Outpatient [facility]_Tod PRIV PRIV [id number] [facility] 00:00:00 00:00:00 d_J [id number] Medica l 2023-05-03 2023-05-03 Outpatient [facility]_Tod PRIV PRIV [id number] [facility] 00:00:00 00:00:00 d_J [id number] Medica l 2023-04-25 2023-04-25 Outpatient [facility]_Tod PRIV PRIV [id number] [facility] 00:00:00 00:00:00 d_J [id number] Medica l 2023-04-25 2023-04-25 Outpatient [facility]_Tod PRIV PRIV [id number] [facility] 00:00:00 00:00:00 d_J [id number] Medica l 2023-04-25 2023-04-25 Outpatient [facility]_Tod PRIV PRIV [id number] [facility] 00:00:00 00:00:00 d_J [id number] Medica l 2023-04-25 2023-04-25 Outpatient [facility]_Tod PRIV PRIV [id number] [facility] 00:00:00 00:00:00 d_J [id number] Medica l 2023-04-20 2023-04-20 Outpatient [facility]_Tod PRIV PRIV 239 [id number] [facility] 00:00:00 00:00:00 d_J [id number] Medica l 2023-04-17 2023-04-17 Outpatient [facility]_Tod PRIV PRIV 239 [id number] [facility] 00:00:00 00:00:00 d_J [id number] Medica l 2023-04-10 2023-04-10 Outpatient [facility]_Tod PRIV PRIV [id number] [facility] 00:00:00 00:00:00 d_J [id number] Medica l 2023-04-07 2023-04-07 Outpatient [facility]_Tod PRIV PRIV 239 [id number] [facility] 00:00:00 00:00:00 d_J [id number] Medica l 2023-03-29 2023-03-29 Outpatient [facility]_Tod PRIV PRIV [id number] [facility] 00:00:00 00:00:00 d_J [id number] Medica l 2023-03-29 2023-03-29 Outpatient GC_BA[facility]_Tod PRIV PRIV [id number] [facility] 00:00:00 00:00:00 d_J [id number] Medica l 2023-03-29 2023-03-29 Outpatient [facility]_Tod PRIV PRIV 239 [id number] [facility] 00:00:00 00:00:00 d_J [id number] Medica l 2023-03-28 2023-03-28 Outpatient [facility]_Tod PRIV PRIV [id number] [facility] 00:00:00 00:00:00 d_J [id number] Medica l 2023-03-28 2023-03-28 Outpatient [facility]_Tod PRIV PRIV 239 [id number] [facility] 00:00:00 00:00:00 d_J [id number] Medica l 2023-03-22 2023-03-22 Outpatient [facility]_Tod PRIV PRIV [id number] [facility] 00:00:00 00:00:00 d_J [id number] Medica l 2023-03-22 2023-03-22 Outpatient [facility]_Tod PRIV PRIV 239 [id number] [facility] 00:00:00 00:00:00 d_J [id number] Medica l 2023-03-21 2023-03-21 Outpatient [facility]_Tod PRIV PRIV [id number] [facility] 00:00:00 00:00:00 d_J [id number] Medica l 2023-03-02 2023-03-02 Outpatient [facility]_Tod PRIV PRIV [id number] [facility] 00:00:00 00:00:00 d_J [id number] Medica l 2023-02-21 2023-02-21 Dennis Santos [facility] 202 [id number] [facility] 00:00:00 00:00:00 [facility] - Med ical MD: [address] [facility] [address] , Ph. 2023-02-20 2023-02-20 Outpatient [facility]_Tod PRIV PRIV [id number] [facility] 00:00:00 00:00:00 d_J [id number] Medica l 2023-02-20 2023-02-20 Outpatient [facility]_Tod PRIV PRIV [id number] [facility] 00:00:00 00:00:00 d_J [id number] Medica l 2023-02-20 2023-02-20 Outpatient [facility]_Tod PRIV PRIV 239 [id number] [facility] 00:00:00 00:00:00 d_J [id number] Medica l 2023-02-07 2023-02-07 Jojo [facility] 425 [facility] 00:00:00 00:00:00 Kwasi PA: Health - Med ical [address] [facility] [address] , Ph. 2023-02-02 2023-02-02 Outpatient [facility]Tod PRIV PRIV [id number] [facility] 00:00:00 00:00:00 d_J [id number] Medica l 2023-01-31 2023-01-31 Jojo [facility] 418 [facility] 00:00:00 00:00:00 RUPINDER Villalpando: Health - Med ical [address] [place] [address] , Ph. 2023-01-18 2023-01-18 Jojo [facility] [id number] [facility] 00:00:00 00:00:00 RUPINDER Villalpando: Health - Med ical [address] [facility] [address] , Ph. 2023-01-17 2023-01-17 Outpatient [facility]_Tod PRIV PRIV [id number] [facility] 00:00:00 00:00:00 d_J [id number] Medica l 2023-01-17 2023-01-17 Outpatient [facility]_Tod PRIV PRIV [id number] [facility] 00:00:00 00:00:00 d_J [id number] Medica l 2023-01-17 2023-01-17 Outpatient [facility]_Tod PRIV PRIV 239 [id number] [facility] 00:00:00 00:00:00 d_J [id number] Medica l 2022-12-31 2022-12-31 Outpatient [facility]_Tod PRIV PRIV [id number] [facility] 00:00:00 00:00:00 d_J [id number] Medica l 2022-12-16 2022-12-16 Outpatient [facility]Tod PRIV PRIV [id number] [facility] 00:00:00 00:00:00 d_J [id number] Medica l 2022-12-14 2022-12-14 Jojo [facility] 301 [facility] 00:00:00 00:00:00 RUPINDER Villalpando: Health - Med ical [address] [facility] [address] , Ph. 2022-12-09 2022-12-09 Outpatient [facility]_Tod PRIV PRIV [id number] [facility] 00:00:00 00:00:00 d_J [id number] Medica l 2022-12-09 2022-12-09 Outpatient [facility]_Tod PRIV PRIV [id number] [facility] 00:00:00 00:00:00 d_J [id number] Medica l 2022-12-09 2022-12-09 Jojo [facility] 224 [facility] 00:00:00 00:00:00 RUPINDER Villalpando: Health - Med ical [address] [facility] [address] , Ph. 2022-11-15 2022-11-15 Outpatient [facility]_Tod PRIV PRIV 239 [id number] [facility] 00:00:00 00:00:00 d_J [id number] Medica l 2022-11-08 2022-11-08 Outpatient [facility]_Tod PRIV PRIV [id number] [facility] 00:00:00 00:00:00 d_J [id number] Medica l 2022-11-07 2022-11-07 Outpatient [facility]_Tod PRIV PRIV 239 [id number] [facility] 00:00:00 00:00:00 d_J [id number] Medica l 2022-11-04 2022-11-04 Outpatient [facility]_Tod PRIV PRIV [id number] [facility] 00:00:00 00:00:00 d_J [id number] Medica l 2022-10-26 2022-10-26 Outpatient [facility]Tod PRIV PRIV [id number] [facility] 00:00:00 00:00:00 d_J [id number] Medica l 2022-10-26 2022-10-26 Jojo [facility] 111 [facility] 00:00:00 00:00:00 RUPINDER Villalpando: Health - Med ical [address] [facility] [address] , Ph. 2022-10-25 2022-10-25 Outpatient [facility]_Tod PRIV PRIV [id number] [facility] 00:00:00 00:00:00 d_J [id number] Medica l 2022-10-25 2022-10-25 Outpatient [facility]_Tod PRIV PRIV 239 [id number] [facility] 00:00:00 00:00:00 d_J [id number] Medica l 2022-10-25 2022-10-25 Dennis Santos [facility] [id number] [facility] 00:00:00 00:00:00 [facility] - Med ical MD: [address] [facility] [address] , Ph. 2022-10-18 2022-10-18 Outpatient [facility]_Tod PRIV PRIV [id number] [facility] 00:00:00 00:00:00 d_J [id number] Medica l 2022-09-02 2022-09-02 Outpatient [facility]_Tod PRIV PRIV 239 [id number] [facility] 00:00:00 00:00:00 d_J [id number] Medica l 2022-09-01 2022-09-01 Outpatient [facility]Tod PRIV PRIV [id number] [facility] 00:00:00 00:00:00 d_J [id number] Medica l 2022-08-23 2022-08-23 Jojo [facility] 108 [facility] 00:00:00 00:00:00 RUPINDER Villalpando: Health - Med ical [address] [facility] [address] , Ph. 2022-08-21 2022-08-21 Outpatient [facility]_Tod PRIV PRIV [id number] [facility] 00:00:00 00:00:00 d_J [id number] Medica l 2022-08-19 2022-08-19 Outpatient [facility]Tod PRIV PRIV [id number] [facility] 00:00:00 00:00:00 d_J [id number] Medica l 2022-08-18 2022-08-18 Outpatient [facility]Tod PRIV PRIV 239 [id number] [facility] 00:00:00 00:00:00 d_J [id number] Medica l 2022-08-16 2022-08-16 Outpatient [facility]Tod PRIV PRIV [id number] [facility] 00:00:00 00:00:00 d_J [id number] Medica l 2022-08-05 2022-08-05 Outpatient [facility]Tod PRIV PRIV [id number] [facility] 00:00:00 00:00:00 d_J [id number] Medica l 2022-08-05 2022-08-05 Jojo [facility] 021 [facility] 00:00:00 00:00:00 RUPINDER Villalpando: Health - Med ical [address] [facility] [address] , Ph. 2022-08-02 2022-08-02 Outpatient [facility]_Tod PRIV PRIV [id number] [facility] 00:00:00 00:00:00 d_J [id number] Medica l 2022-07-29 2022-07-29 Outpatient [facility]Tod PRIV PRIV [id number] [facility] 00:00:00 00:00:00 d_J [id number] Medica l 2022-07-05 2022-07-05 Outpatient [facility]Tod PRIV PRIV [id number] [facility] 00:00:00 00:00:00 d_J [id number] Medica l 2022-07-05 2022-07-05 Jojo [facility] 0 [facility]:00:00 00:00:00 RUPINDER Villalpando: Health - Med ical [address] [facility] [address] , Ph. 2022-07-04 2022-07-04 Dennis Santos [facility] 202 [facility] 00:00:00 00:00:00 [facility] - Med ical MD: [address] [facility] [address] , Ph. 2022-06-22 2022-06-22 Outpatient [facility]_Tod PRIV PRIV [id number] [facility] 00:00:00 00:00:00 d_J [id number] Medica l 2022-06-02 2022-06-02 Outpatient [facility]Tod PRIV PRIV [id number] [facility] 00:00:00 00:00:00 d_J [id number] Medica l 2022-05-24 2022-05-24 Outpatient [facility]Tod PRIV PRIV [id number] [facility] 00:00:00 00:00:00 d_J [id number] Medica l 2022-05-24 2022-05-24 Jojo [facility] [id number] [facility] 00:00:00 00:00:00 RUPINDER Villalpando: Health - Med ical [address] [facility] [address] , Ph. 2022-05-24 2022-05-24 Outpatient Kwasi, PRIV PRIV [id number] 00:00:00 00:00:00 Jojo [id number] 2022-05-16 2022-05-16 Outpatient [facility]Tod PRIV PRIV [id number] [facility] 00:00:00 00:00:00 d_J [id number] Medica l 2022-05-12 2022-05-12 Outpatient [facility]Tod PRIV PRIV [id number] [facility] 00:00:00 00:00:00 d_J [id number] Medica l 2022-05-12 2022-05-12 Outpatient Gerri, PRIV PRIV [id number] 00:00:00 00:00:00 Dennisluz maria Mcgeene [id number] 2022-05-12 2022-05-12 Dennisluz maria Mcgeene [facility] 202 [id number] [facility] 00:00:00 00:00:00 Gerri [facility] - Med ica MD: [address] [facility] [address] , Ph. 2022-05-03 2022-05-03 Outpatient [facility]_Tod PRIV PRIV [id number] [facility] 11:55:00 11:55:00 d_J [id number] Medica l 2022-04-26 2022-04-26 Outpatient [facility]_Tod PRIV PRIV [id number] [facility] 01:36:00 01:36:00 d_J [id number] Medica l 2022-04-26 2022-04-26 Outpatient Kwasi, PRIV PRIV [id number] 00:00:00 00:00:00 Jojo [id number] 2022-04-26 2022-04-26 Jojo [facility] [id number] [facility] 00:00:00 00:00:00 RUPINDER Villalpando: Health - Med ical [address] [facility] [address] , Ph. 2022-04-24 2022-04-24 Outpatient [facility]_Tod PRIV PRIV [id number] [facility] 11:00:00 11:00:00 d_J [id number] Medica l 2022-04-22 2022-04-22 Outpatient [facility]_Tod PRIV PRIV [id number] [facility] 10:51:00 10:51:00 d_J [id number] Medica l 2022-04-21 2022-04-21 Outpatient [facility]_Tod PRIV PRIV 239 [id number] [facility] 11:47:00 11:47:00 d_J [id number] Medica l 2022-04-15 2022-04-15 Outpatient [facility]_Tod PRIV PRIV [id number] [facility] 04:12:00 04:12:00 d_J [id number] Medica l 2022-04-15 2022-04-15 Jojo [facility] [id number] [facility] 00:00:00 00:00:00 RUPINDER Villalpando: Health - Med ical 413 [facility] [address] , Ph. 2022-04-15 2022-04-15 Outpatient Kwasi BRANDON TAYLOR [id number] 00:00:00 00:00:00 Jojo [id number] 2022-04-13 2022-04-13 Outpatient [facility]_Tod PRIV PRIV [id number] [facility] 09:13:00 09:13:00 d_J [id number] Medica l 2022-04-13 2022-04-13 Outpatient Kwasi, PRIV PRIV [id number] 00:00:00 00:00:00 Jojo [id number] 2022-04-13 2022-04-13 Jojo [facility] [id number] [facility] 00:00:00 00:00:00 RUPINDER Villalpando: Health - Med ical [address] [facility] [address] , Ph. 2022-04-10 2022-04-10 Outpatient [facility]_Tod PRIV PRIV 239 [id number] [facility] 10:44:00 10:44:00 d_J [id number] Medica l 2022-04-05 2022-04-05 Outpatient GC_[facility]_Tod PRIV PRIV 239 [id number] [facility] 04:56:00 04:56:00 d_J [id number] Medica l 2022-04-05 2022-04-05 Jojo [facility] [id number] [facility] 00:00:00 00:00:00 Kwasi PA: Health - Med ical [address] [facility] [address] , Ph. 2022-04-05 2022-04-05 Outpatient Kwasi, PRIV PRIV [id number] e-[id number] 00:00:00 00:00:00 Jojo [id number] 2022-04-01 2022-04-01 Outpatient [facility]_Tod PRIV PRIV [id number] [facility] 06:30:00 06:30:00 d_J [id number] Medica l 2022-04-01 2022-04-01 Outpatient Kwasi, PRIV PRIV [id number] 00:00:00 00:00:00 Jojo [id number] 2022-04-01 2022-04-01 Jojo [facility] [id number] [facility] 00:00:00 00:00:00 RUPINDER Villalpando: Health - Med ical [address] [facility] [address] , Ph. 2022-03-20 2022-03-20 Outpatient [facility]_Tod PRIV PRIV [id number] [facility] 10:40:00 10:40:00 d_J [id number] Medica l 2022-03-19 2022-03-19 Outpatient [facility]_Tod PRIV PRIV [id number] [facility] 10:41:00 10:41:00 d_J [id number] Medica l 2022-03-17 2022-03-17 Outpatient [facility]_Tod PRIV PRIV [id number] [facility] 02:04:00 02:04:00 d_J [id number] Medica l 2022-03-17 2022-03-17 Outpatient Gerri PRIV PRIV [id number] 00:00:00 00:00:00 Dennis Santos [id number] 2022-03-17 Dennis Santos [facility] [id number] [facility] 00:00:00 00:00:00 Gerri [facility] - Med ical MD: [address] [facility] [address] , Ph. 2022-03-11 2022-03-11 Outpatient GC_[facility]_Tod PRIV PRIV [id number] [facility] 12:36:00 12:36:00 d_J [id number] Medica l 2022-03-11 2022-03-11 Outpatient Kwasi PRIV PRIV [id number] 00:00:00 00:00:00 Jojo [id number] 2022-03-11 2022-03-11 Jojo [facility] [id number] [facility] 00:00:00 00:00:00 RUPINDER Villalpando: Health - Med ical [address] [facility] [address] , Ph. 2022-02-23 2022-02-23 Outpatient [facility]_Tod PRIV PRIV [id number] [facility] 10:53:00 10:53:00 d_J [id number] Medica l 2022-02-15 2022-02-15 Outpatient [facility]_Tod PRIV PRIV [id number] [facility] 07:51:00 07:51:00 d_J [id number] Medica l 2022-02-15 2022-02-15 Outpatient Kwasi, PRIV PRIV [id number] 00:00:00 00:00:00 Jojo [id number] 2022-02-15 2022-02-15 Jojo [facility] [id number] [facility] 00:00:00 00:00:00 RUPINDER Villalpando: Health - Med ica [address] [facility] [address] , Ph. 2022-02-11 2022-02-11 Outpatient [facility]_Tod PRIV PRIV [id number] [facility] 08:21:00 08:21:00 d_J [id number] Medica l 2022-02-08 2022-02-08 Outpatient [facility]_Tod PRIV PRIV 239 [id number] [facility] 08:40:00 08:40:00 d_J [id number] Medica l 2022-02-03 2022-02-03 Outpatient GC_[facility]_Tod PRIV PRIV 239 [id number] [facility] 01:01:00 01:01:00 d_J [id number] Medica l 2022-02-02 2022-02-02 Outpatient GC_[facility]_Tod PRIV PRIV 239 [id number] [facility] 12:52:00 12:52:00 d_J [id number] Medica l 2022-02-01 2022-02-01 Outpatient [facility]_Tod PRIV PRIV 239 [id number] [facility] 09:12:00 09:12:00 d_J [id number] Medica l 2022-01-27 2022-01-27 Outpatient GC_[facility]_Tod PRIV PRIV 239 [id number] [facility] 11:30:00 11:30:00 d_J [id number] Medica l 2022-01-27 2022-01-27 Outpatient Gerri PRIV PRIV [id number] 00:00:00 00:00:00 Dennis Santos [id number] 2022-01-27 2022-01-27 Dennis Santos [facility] [id number] [facility]:00[facility]00 [facility]00[facility] [address] [facility] [place] [address] , Ph. 2022-01-27 2022-01-27 Outpatient Gerri PRIV PRIV [id number] 00:00:00 00:00:00 Dennis Santos [id number] 2022-01-25 2022-01-25 Outpatient GC_[facility]_Tod PRIV PRIV 239 [id number] [facility] 02:06:00 02:06:00 d_J [id number] Medica l 2022-01-25 2022-01-25 Outpatient Kwasi PRIV PRIV [id number] 00:00:00 00:00:00 Jojo [id number] 2022-01-25 2022-01-25 Jojo [facility] [id number] [facility] 00:00:00 00:00:00 RUPINDER Villalpando: Health - Med ical [address] [facility] , [place] [address] , Ph. 2022-01-25 2022-01-25 Outpatient Kwasi, PRIV PRIV [id number] 00:00:00 00:00:00 Jojo [id number] 2022-01-24 2022-01-24 Outpatient [facility]_Tod PRIV PRIV 239 [id number] [facility] 03:10:00 03:10:00 d_J [id number] Medica l 2022-01-21 2022-01-21 Outpatient GC_BA[facility]_Spa PRIV PRIV 239 [id number] [facility] 05:16:00 05:16:00 Jaspreet [id number] Medica l 2020-02-27 2020-02-27 [facility] [id number] [facility] 12:33:00 14:29:00 SYMPTOMS DEEJAY VALLADARES [facility] SIGNS N, [address] BYPASS, ([place] [address] 2020-01-26 2020-01-31 HTN HEART E PILAR GOMEZ [facility] [id number] 03:15:00 15:55:00 DISEASE DEEJAY VALLADARES L ukes W/HEART N, [address], (LUF/[place] [address] 2020-01-04 2020-01-04 Inpatient [place] [id number] 22:01:00 23:59:00 [facility] [address]LUF/[address], V/SA) [place] [address] 2020-01-04 2020-01-04 CELLULITIS E STELLA, [facility] [id number] 13:30:00 18:53:00 OF LEFT ELENA VALLADARES L ukes LOWER LIMB N, [address], (LUF/[place] [address] 2019-11-26 2019-11-26 VENOUS 1 LEORA, [facility] [id number] 14:08:00 17:30:00 INSUFF VELMA DEEJAY VALLADARES L ukes CHRONIC N, [address], (LUF/[place] [address] 2018-11-15 2018-11-15 SHORTNESS 3 [facility] [id number] [facility] 14:59:00 23:59:00 OF BREATH , TIM [facility] [address] (LUF/[address], V/SA) [place] [address] 2018-06-08 2018-06-08 COPD 3 MAYELIN, [facility] [id number] [facility] 11:43:00 23:59:00 UNSPECIFIE JUSTOCAROL Bond D N, [address], (LUF/[place] [address] 2017-09-16 2017-09-16 Inpatient DE ANDA, [facility] [place] [id number] 00:36:00 23:59:00 GANESH [facility], [address] (LUF/LI [address], V/SA) [place] [address] 2017-09-15 2017-09-15 CELLULITIS E MOHAN, [facility] [id number] 16:11:00 19:30:00 [facility] LOWER [facility] N, [address], (LUF[place] [address] Results Test Description Test Time Test Comments [...] the recommended for anuradha for GFRby the [facility] Kidney Foundation for Adults.The GFR will not ca lculate if the sex is unkn own or if thepatient's ag e is <18 years. CREATININE (test code = 0.73 mg/dL 0.44-1.03 N CREAT) CALCIUM (test code = CA) 8.8 mg/dL 8.5-10.5 N INDEX HEMOLYSIS (test 0 Index/DL See_Comment [Auto mated message] The code = HEMINDEX) system Haolianluo generated this result transmit bambi reference range: 1 NORMAL . The reference range was not used to interpret th is result as normal/abnormal . INDEX ICTERIC (test code 1 Index/DL See_Comment [A utomated message] The = ICTINDEX) system which Aphria nerated this result transmit bambi reference range: 1 NORMAL . The reference range was not used to interpret th is result as normal/abnormal . INDEX LIPEMIA (test code 0 Index/DL See_Comment [A utomated message] The = LIPINDEX) system which Aphria nerated this result transmit bambi reference range: 1 NORMAL . The reference range was not used to interpret th is result as normal/abnormal . BASIC METABOLIC [id number] 00:56:00 Test Item Value Reference Range Interpretation [...] mg/dL 8.5-10.5 N = CA) CBC W/AUTO [id number] 00:45:00 Test Item Value Reference Range Interpretation [...] 0.0 x10 3/uL 0.0-0.1 N BASIC METABOLIC [id number] 23:08:00 Test Item Value Reference Range Interpretation [...] code 8.9 mg/dL 8.5-10.5 N = CA) [id number] 22:59:00 Test Item Value Reference Range Interpretation Comments AMMONIA (test code = AMM) 67 umol/L 11-35 H CBC W/AUTO [id number] 22:44:00 Test Item Value Reference Range Interpretation [...] Cholesterol in LDL [Mass/volume] in Serum or [id number] 00:00:00 Test Item Value Reference Range Interpretation Comments Cholesterol in LDL [Mass/volume] in 55 Serum or Plasma (test code = 2089-1) [facility]olesterol in LDL [Mass/volume] in Serum or [id number] 00:00:00 Test Item Value Reference Range Interpretation Comments Cholesterol in LDL [Mass/volume] in 55 Serum or Plasma (test code = 2089-1) [facility] MedicalCholesterol in LDL [Mass/volume] in Serum or [id number] 00:00:00 Test Item Value Reference Range Interpretation Comments Cholesterol in LDL [Mass/volume] in 55 Serum or Plasma (test code = 2089-1) [facility], [id number] 10:36:00Specimen: BloodCollected: 01/25/2020 23:40 Status: Final Last Updated: 01/31/2020 10:36 Culture Result (Final) (Final) No Growth After 5 DaysF[facility]GENNY[facility]ITAL[facility] [id number] 10:36:00Specimen: BloodCollected: 01/25/2020 23:40 Status: Final Last Updated: 01/31/2020 10:36 Culture Result (Final) (Final) No [facility] 12:41:00 Test Item Value Reference Range Interpretation [...] mg/dl 8.4-10.2 = CALC) EGFR if >60 Dominican (test code mL/min/1.73m\\ = EGFRAA) S\\2 EGFR if Non- >60 Estimate d Glomerular Dominican (test code mL/min/1.73m\\ Filtrat ion Rate (eGFR) [...] and management of c hronic kidney failure. [facility] 10:36:00 Test Item Value Reference Range Interpretation [...] mg/dl 8.4-10.2 = CALC) EGFR if >60 Dominican (test code mL/min/1.73m\\ = EGFRAA) S\\2 EGFR if Non- >60 Estimate d Glomerular Dominican (test code mL/min/1.73m\\ Filtrat ion Rate (eGFR) [...] and management of c hronic kidney failure. [facility] WITH AUTO [id number] 09:59:00 Test Item Value Reference Range Interpretation [...] % 0.0-0.4 [facility] WITH [id number] 06:21:00 Test Item Value Reference Range Interpretation Comments Color (test code = UCOLR) Yellow Clarity (test code = UCLAR) Clear Glucose (test code = UGLUC) NEGATIVE NEGATIVE N Bilirubin (test code = UBILI) NEGATIVE NEGATIVE N Ketones (test code = UKET) TRACE NEGATIVE A Specific Hern[place] (test code = 1.020 1.005-1.030 A USPGR) [...] mg/dl 8.4-10.2 = CALC) EGFR if >60 Dominican (test code mL/min/1.73m\\ = EGFRAA) S\\2 EGFR if Non- >60 Estimate d Glomerular Dominican (test code mL/min/1.73m\\ Filtrat ion Rate (eGFR) [...] and management of c hronic kidney failure. [facility] WITH AUTO [id number] 05:46:00 Test Item Value Reference Range Interpretation [...] mg/dl 8.4-10.2 = CALC) EGFR if >60 Dominican (test code mL/min/1.73m\\ = EGFRAA) S\\2 EGFR if Non- >60 Estimate d Glomerular Dominican (test code mL/min/1.73m\\ Filtrat ion Rate (eGFR) [...] failure. [facility]CB WITH AUTO [id number] 04:24:00 Test Item Value Reference Range Interpretation [...] % 0.0-0.4 H IG%) [facility] HospitalTROPONIN-I [id number] 21:16:00 Test Item Value Reference Range Interpretation Comments Troponin-I (test <0.015 ng/ml 0.000-0.034 N The [address] r[address]ile URL code = TROP) is 0.045 ng/mL for the Siemens Slaughters T roponin I. The Joint [facility] jimi Society of Cardiology/[facility] College of Card iology (ESC/ACC) and [facility] [employer] [place] amadou Standards of La boratory Practices [...] the clini jack event. [facility] HospitalTROPONIN-I [id number] 13:14:00 Test Item Value Reference Range Interpretation Comments Troponin-I (test <0.015 ng/ml 0.000-0.034 N The [address] Pe rcentile URL code = TROP) is 0.045 ng/mL for the Siemens Slaughters T roponin I. The Joint [facility] jimi Society of Cardiology/[facility] College of Card iology (ESC/ACC) and [facility] [employer] amadou Standards of La boratory Practices [...] jack event. [facility] HospitalLACTIC ACID [id number] 06:06:00 Test Item Value Reference Range Interpretation Comments LACTATE (test code = LAC) 2.8 mmol/l 0.7-2.0 HH repeat Critical values were called to Ramón Fatima RN by [id number] on 01/26/20 06:06 CDT. Results were read back by Ramón Fatima RN.[facility] HospitalD-DIMER [id number] 06:02:00 Test Item Value Reference Range Interpretation [...] mg/dl 8.4-10.2 = CALC) EGFR if >60 Dominican (test code mL/min/1.73m\\ = EGFRAA) S\\2 EGFR if Non- >60 Estimate d Glomerular Dominican (test code mL/min/1.73m\\ Filtrat ion Rate (eGFR) [...] hronic kidney failure. [facility] HospitalTROPONIN-I [id number] 05:31:00 Test Item Value Reference Range Interpretation Comments Troponin-I (test <0.015 ng/ml 0.000-0.034 N The [address] Pe rcentile URL code = TROP) is 0.045 ng/mL for the Siemens Slaughters T roponin I. The Joint Europ jimi Society of Cardiology/[facility] College of Card iology (ESC/ACC) and t he [facility] of Clinical [place] amadou Standards of [...] event. [facility]CB WITH AUTO [id number] 05:06:00 Test Item Value Reference Range Interpretation [...] % 0.0-0.4 H [facility] HospitalGLYCOSALATED [id number] 03:19:00 Test Item Value Reference Range Interpretation [...] THE MEAN GLUCOS E IS NOT RELIABLE. [facility] (Ultra Sensitive)2020-01-26 02:57:00 Test Item Value Reference Range Interpretation Comments TSH (test code = TSH) 5.28 mIU/L 0.47-4.68 H [facility] HospitalXR CHEST AP/PA 1 [id number] 00:53:02 EXAMINATION: XR CHEST AP/PA 1 VIEWINDICATION: [id number]: DyspneaCOMPARISON: Chest x-ray dated November 26, 2019FINDINGS: [...] final report was electronically signed by Dr Jair Branch MD 01/26/202012:46 AMDictated By: Kimberly BRANCHte: 01/26/2020 00:46[facility] AC[facility] [id number] 00:25:00 Test Item Value Reference Range Interpretation Comments LACTATE (test code = LAC) 2.1 mmol/l 0.7-2.0 HH Critical values were called to Rneetta Donato RN by [id number] on 01/26/20 00:25 CDT. Results were read back by Renetta Donato RN.[facility] HospitalTROPONIN-I [id number] 00:25:00 Test Item Value Reference Range Interpretation Comments Troponin-I (test <0.015 ng/ml 0.000-0.034 N The [address] Pe rcentile URL code = TROP) is 0.045 ng/mL for the Siemens Slaughters T roponin I. The Joint Europ jimi Society of Cardiology/[facility] College of Card iology (ESC/ACC) and t [facility] of Clinical [place] amadou Standards of [...] ( 4 - SerumAlbumin)] EGFR if >60 Dominican (test code mL/min/1.73m\\ = EGFRAA) S\\2 EGFR if Non- >60 Estimate d Glomerular Dominican (test code mL/min/1.73m\\ Filtrat ion Rate (eGFR) [...] BGHCT) 40.5 35.0-50.0 O2Hb (test code = WYOG0LG) 92.6 % 95.0-99.0 L COHb (test code [...] Drawn By (test code = LAUREN MINAYA BGCLAYTON) Collection Date (test code 01/25/2020 = BGDTCOL) Collection Time (test code 23:40 = BGCTM) Sample Site (test code = L Radial BGSAMPLESITE) Sample Type (test code = Arterial BGSAMPLETYPE) [place]ens Test (test code = Acceptable BGALLEN) Notified By (test code = LAUREN MINAYA) Notified Whom (test code = DR. ROB BGNOTIFIEDWHOM) Date Notified (test code = 01/25/2020 BGDTNOTIFIED) Time Notified (test code = 23:45 BGTMNOTIFIED) O2 Device (test code = Nasal Cannula [id number]) Instrument ID (test code = 99178 BGINSTRID) Reported By (test code = LAUREN MINAYAREPORTAKANKSHA) [facility] WITH AUTO [id number] 23:49:00 Test Item Value Reference Range Interpretation [...] code = 0.7 % 0.0-0.4 H IG%) [facility]RAM[facility], [place] [id number] 07:53:00 Specimen: BloodCollected: 01/04/2020 15:04 Status: Final Last Updated: 01/10/2020 07:52 Culture Result (Final) (Final) [facility] [address] [facility] [id number] 07:53:00To start 15mins after 1st cultureSpecimen: BloodCollected: 01/04/2020 15:04 Status: Final Last Updated: 01/10/2020 07:52 (1) To [id number] after 1st culture Culture Result (Final) (Final) No Growth After 5 DaysF[facility] CULTURE, ADANE [id number] 07:53:00Specimen: BloodCollected: 01/04/2020 15:04 Status: Final Last Updated: 01/10/2020 07:52 Culture Result (Final) (Final) No [facility] [address] [facility], BLOOD 2020-01-10 07:53:00Specimen: BloodCollected: 01/04/2020 15:04 Status: Final Last Updated: 01/10/2020 07:52 Culture Result (Final) (Final) No Growth After [facility] [address] [facility], [id number] 09:23:00MUST order Gram Stain separately WOUNDSSpecimen: WoundCollected: 01/04/2020 14:25 Status: Final Last Updated: 01/06/2020 17:37 (1) MUST order Gram Stain separately WOUNDS Culture Result (Final) (Final) Many Gram Negative Bacilli Isolate (Final) (Final) Serratia marcescens Amikacin <=2 S Cefazolin >=64 R Cefepime <=1 S Cefoxitin R Ceftazidime <=1 S Ceftriaxone <=1 S Ciprofloxacin <=0.25 S Gentamicin <=1 S Levofloxacin <=0.12 S Meropenem <=0.25 S Tobramycin <=1 S Trimeth/Sulfa <=20 [facility] GRAM [id number] 07:22:00Must order gram stain separately with aerobic cult Specimen: WoundCollected: 01/04/2020 14:25 Status: Final Last Updated: 01/06/2020 07:22 (1) Must order gram stain separately with aerobic cult Gram Stain (Final) (Final) Many RBC's Moderate Gram Negative BacilliFroedtert West Bend HospitalXR LEG (TIB/FIB) 2 [id number] 15:32:55Right tibia/fibula radiographs-4 viewsHistory: Pain.Comparison: right ankle [...] 01/04/2020 3:26PMDictated By: ARNOLDO JOSÉate: 01/04/2020 15:26[facility] [id number] 15:30:00 Test Item Value Reference Range Interpretation [...] ( 4 - SerumAlbumin)] EGFR if >60 Dominican (test code mL/min/1.73m\\ = EGFRAA) S\\2 EGFR if Non- >60 Estimate d Glomerular Dominican (test code mL/min/1.73m\\ Filtrat ion Rate (eGFR) [...] and management of c hronic kidney failure. [facility] WITH [id number] 15:28:00 Test Item Value Reference Range Interpretation Comments Color (test code = UCOLR) Yellow Clarity (test code = UCLAR) Clear Glucose (test code = UGLUC) NEGATIVE NEGATIVE N Bilirubin (test code = UBILI) NEGATIVE NEGATIVE N Ketones (test code = UKET) NEGATIVE NEGATIVE N Specific [place] (test code = >=1.030 1.005-1.030 A USPGR) [...] code = UBACT) Trace None Seen,Trace N [facility] WITH AUTO [id number] 15:07:00 Test Item Value Reference Range Interpretation [...] [facility] COMP MIN 3 [id number] 16:18:18 Evaluate for gasRight ankle 3 views:History: [...] electronically signed by Dr Adrian Schreiber MD :11 PMDictated By: John SCHREIBERte: 11/26/2019 16:11[facility] HECTORXR CHEST AP/PA 1 [id number] 16:07:03Exam: AP portable chestDATE OF EXAM: 11/26/2019 [...] 11/26/20194:00 PMDictated By: John SCHREIBERte: 11/26/2019 16:00[facility] HECTORTROPONIN-I Quantitative 2019-11-26 15:37:00 Test Item Value Reference Range Interpretation Comments Troponin-I (test <0.015 ng/ml 0.000-0.034 N The [address] Pe rcentile URL code = TROP) is 0.045 ng/mL for the Siemens Slaughters T roponin I. The Joint Europ jimi Society of Cardiology/[facility] College of Card iology (ESC/ACC) and [facility] of Clinical [place] amadou Standards of [...] ( 4 - SerumAlbumin)] EGFR if >60 Dominican (test code mL/min/1.73m\\ = EGFRAA) S\\2 EGFR if Non- >60 Estimate d Glomerular Dominican (test code mL/min/1.73m\\ Filtrat ion Rate (eGFR) [...] and management of c hronic kidney failure. [facility]-REACTIVE [id number] 15:26:00 Test Item Value Reference Range Interpretation Comments C REACTIVE PROTEIN (test code = 27.00 mg/dl 0.00-3.00 H CRP) [facility] HospitalPREGNANCY TEST, Serum [id number] 15:24:00 Test Item Value Reference Range Interpretation Comments (Serum) (test code = Negative Negative N PREGS) [facility] WITH AUTO [id number] 15:00:00 Test Item Value Reference Range Interpretation [...] [facility] 2 PA [id number] 17:10:47 Procedure: XR CHEST 2 PA LATERALOrder Date: 11/15/2018 3:11 PMOrdering Provider: DR TIM BYRNESAClinical Indication: [id number]: DyspneaComparison: 06/08/2018Findings:Cardiac size is normal.Pulmonary vasculature is normal.Mediastinal contour is normal.Aortic contour is normal.There is no consolidation or effusion.There is no mass or pneumothorax.There is no evidence of active tuberculosis.There is no skeletal abnormality.Impression: Negative PA and lateral views of the chest.This final report was electronically signed by Dr Bg Cardenas MD 11/15/20185:04 PMDictated By: BG CARDENAS.Date: 11/15/2018 17:04[facility] 2 PA [id number] 13:35:48PA and lateral chest:Exam Date: 8/24/2018Clinical Indication: COPDThe lungs are clear. Cardiac size is at upper limits of normal. There is novascular congestion or pleural effusion. There are no significant bonyabnormalities.Impression: No acute cardiopulmonary abnormality.This final report was electronically signed by Dr Adrian Schreiber MD 06/08/20181:29 PMDictated By: ADRIAN SCHREIBERDate: 06/08/2018 13:35[facility] [id number] 10:29:00MUST order Gram Stain separately WOUNDSSpecimen: Leg RightCollected: 09/15/2017 17:54 Status: Final Last Updated: 09/18/2017 01:39 (1) MUSTorder Gram Stain separately WOUNDS Culture Result (Final) (Final) Many Gram Negative Bacilli Isolate(Final) (Final) Proteus mirabilis Amoxicillin/clavu <=2 S Ampicillin <=2 S Aztreonam <=1 SCefazolin <=4 S Cefepime <=1 S Ceftriaxone <=1 S Ciprofloxacin <=0.25 S Gentamicin <=1 S Levofloxacin <=0.12 S Meropenem <=0.25 S Tetracycline >=16 R Trimeth/Sulfa <=20 [facility] [id number] 07:23:00Specimen: Urine SpecimensCollected: 09/15/2017 17:55 Status: Final Last Updated: 09/18/2017 07:23 Culture Result (Final) (Final) No Growth After 48 HoursF[facility]edtert [facility] HospitalGRAM [id number] 13:27:00Must order gram stain separately with aerobic cultSpecimen: Leg RightCollected: 09/15/2017 17:54 Status: Final Last Updated: 09/17/2017 13:27 (1) Mustorder gram stain separately with aerobic cult Gram Stain (Final) (Final) No Cells Seen Rare Gram Negative BacilliFroedtert West Bend HospitalXR ANKLE [id number] 18:22:06EXAM: XR ANKLE 2VWS, RIGHTDATE: 09/15/2017 4:52 [...] 09/15/2017 6:15PMDictated By: JUAN MCKINNONDate: 09/15/2017 18:22[facility] [id number] 18:11:00 Test Item Value Reference Range Interpretation [...] ( 4 - SerumAlbumin)] EGFR if >60 [place] (test code mL/min/1.73m\\ = EGFRAA) S\\2 EGFR if Non- >60 Estimate d Glomerular [place] (test code mL/min/1.73m\\ Filtrat ion Rate (eGFR) [...] kidney failure. [facility] HospitalURINALYSIS WITH [id number] 18:06:00 Test Item Value Reference Range Interpretation Comments Color (test code = UCOLR) Yellow Clarity (test code = UCLAR) CLEAR Glucose (test code = UGLUC) NEGATIVE NEGATIVE N Bilirubin (test code = UBILI) NEGATIVE NEGATIVE N Ketones (test code = UKET) NEGATIVE NEGATIVE N Specific [place] (test code = 1.025 1.005-1.030 A USPGR) [...] N [facility] HospitalPREGNANCY TEST, Urine [id number] 18:02:00 Test Item Value Reference Range Interpretation Comments (Urine) (test code = Negative PREGU) If a specimen is collected by a nurse, then you MUST fill out the Collected and Collected By rankin [facility] WITH AUTO [id number] 17:55:00 Test Item Value Reference Range Interpretation [...] code = 0.4 % 0.0-0.4 IG%) [facility]O [facility]
--- NOTE | 2023-08-18 21:16 | RAD REPORT ---
EXAM DESCRIPTION: Eric Single View08/18/2023 8:58 pm CLINICAL HISTORY: Shortness of breath COMPARISON: August 04, 2023 FINDINGS: Moderate alveolar opacities right lung Mild left lung opacities Heart is moderately enlarged IMPRESSION: Moderate right and mild left pulmonary opacities may represent pneumonia. Asymmetric pulmonary edema is another consideration
[2023-08-18 21:43] LABS: Absolute Lymphocytes (CBC) 1.8 K/uL (0.7-4.9); Hematocrit 34.2 % (36.0-45.0); Lymphocytes % 19.2 % (15.3-44.8); MCV 89.5 fL (80-100); MPV 7.4 fL (7.6-11.3); Platelets 267 thou/uL (152-406); RBC Red Blood Cell Count 3.82 M/uL (3.86-4.86)
[2023-08-18 22:01] LABS: Albumin 2.7 g/dL (3.4-5.0); Bilirubin Direct 0.2 mg/dL (0-0.2); Bilirubin Indirect, Calculated 0.2 mg/dL (0.2-0.8); Bilirubin Total 0.4 mg/dL (0.2-1.0); Magnesium 1.8 mg/dL (1.6-2.4); Potassium 4.4 mEq/L (3.5-5.1); Protein, Total 7.2 g/dL (6.4-8.2); Troponin High Sensitivity 39.4 pg/mL (<58.9)
[2023-08-18] MEDS ORDERED: MORPHINE 2 MG/ML SYR IV PRN (22:35)
[2023-08-18] MEDS ORDERED: ONDANSETRON 4 MG/2 ML VIAL IV PRN (22:35)
[2023-08-18] MEDS ORDERED: ALBUTEROL 2.5 MG/3 ML NEB SOL NEB PRN (22:35)
--- NOTE | 2023-08-18 22:37 | EDPHYS ---
Physician Documentation [facility] Name: Courtney Sawyer Age: 48 yrs Sex: Female : 1975 Arrival Date: 08/18/2023 Time: 20:14 Bed 15 Private MD: ED Physician Stalin Hartley HPI: 08/18 22:39 This 48 yrs old Female presents to ER via EMS with complaints of Shortness of breath. rt 22:39 Patient presents to the ED with shortness of breath. She comes from the longterm. rt Her oxygen saturations were reported to be 72% on room air, reportedly has a cough. Had a recent admission for hypoxic respiratory failure. Denies other acute complaints at this time, symptoms are moderate in severity, no other aggravating alleviating factors.. 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 - Social history:: Smoking status: Patient denies any tobacco usage or history of. Patient/guardian denies using alcohol, street drugs. ROS: 22:39 Constitutional: Negative for fever, chills, and weight loss, Cardiovascular: Negative rt for chest pain, palpitations, and edema, Abdomen/GI: Negative for abdominal pain, nausea, vomiting, diarrhea, and constipation, MS/Extremity: Negative for injury and deformity, Skin: Negative for injury, rash, and discoloration, Neuro: Negative for headache, weakness, numbness, tingling, and seizure, Psych: Negative for depression, anxiety, suicide ideation, homicidal ideation, and hallucinations, 22:39 Respiratory: Positive for cough, shortness of breath, Exam: 22:39 Chest/axilla: Normal chest wall appearance and motion. Nontender with no deformity. rt No lesions are appreciated. Cardiovascular: Regular rate and rhythm with a normal S1 and S2. No gallops, murmurs, or rubs. Normal PMI, no JVD. No pulse deficits. Respiratory: Lungs have equal breath sounds bilaterally, clear to auscultation and percussion. No rales, rhonchi or wheezes noted. No increased work of breathing, no retractions or nasal flaring. Abdomen/GI: Soft, non-tender, with normal bowel sounds. No distension or tympany. No guarding or rebound. No evidence of tenderness throughout. Skin: Warm, dry with normal turgor. Normal color with no rashes, no lesions, and no evidence of cellulitis. MS/ Extremity: Pulses equal, no cyanosis. Neurovascular intact. Full, normal range of motion. Neuro: Awake and alert, GCS 15, oriented to person, place, time, and situation. Cranial nerves II-XII grossly intact. Motor strength 5/5 in all extremities. Sensory grossly intact. Cerebellar exam normal. Normal gait. Psych: Awake, alert, with orientation to person, place and time. Behavior, mood, and affect are within normal limits. 22:39 Constitutional: The patient appears in no acute distress, obese, 22:54 ECG was reviewed by the Attending Physician. rt Vital Signs: 20:28 BP 123 / 81; Pulse 97; Resp 22; Pulse Ox 95% on 8 lpm NC; km8 20:45 BP 128 / 81; Pulse 97; Resp 22; Pulse Ox 97% on 8 lpm NC; km8 22:13 BP 136 / 69; Pulse 70; Resp 22; Pulse Ox 95% on 8 lpm NC; km8 23:05 BP 131 / 53; Pulse 87; Resp 20; Temp 98.4(O); Pulse Ox 96% on BiPAP; km8 MDM: 20:23 Patient medically screened. rt 22:54 Differential diagnosis: CHF exacerbation, Chronic Obstructive Pulmonary Disease rt Pneumothorax pulmonary edema, Pulmonary Embolism. Data reviewed: vital signs, nurses notes, lab test result(s), EKG, radiologic studies. Consideration of Admission/Observation Patient was admitted/placed on observation. Independent interpretation of the following test(s) in the Emergency Department X-Ray: My interpretation is Edema versus pneumonia seen on interpretation of x-ray images. Counseling: I had a detailed discussion with the patient and/or guardian regarding the historical points, exam findings, and any diagnostic results supporting the discharge/admit diagnosis, lab results, radiology results, the need for further work-up and treatment in the hospital. Response to treatment: the patient's symptoms have markedly improved after treatment. 08/18 20:24 Order name: Basic Metabolic Panel; Complete Time: 22:27 rt 08/18 20:24 Order name: CBC with Diff; Complete Time: 22:27 rt 08/18 20:24 Order name: LFT's; Complete Time: 22:27 rt 08/18 20:24 Order name: Magnesium; Complete Time: 22:27 rt 08/18 20:24 Order name: NT PRO-BNP; Complete Time: 22:27 rt 08/18 20:24 Order name: Troponin HS; Complete Time: 22:27 rt 08/18 20:26 Order name: ABG rt 08/18 22:41 Order name: Blood Culture Adult (2) rt 08/18 22:41 Order name: Lactate w/ 2H reflex if indic. rt 08/18 22:42 Order name: CBC with Automated Diff EDMS 08/18 22:42 Order name: CBC with Automated Diff EDMS 08/18 22:42 Order name: Comprehensive Metabolic Panel EDMS 08/18 22:42 Order name: Comprehensive Metabolic Panel EDMS 08/18 22:42 Order name: Troponin High Sensitivity EDMS 08/18 22:42 Order name: Troponin High Sensitivity EDMS 08/18 22:42 Order name: Troponin High Sensitivity EDMS 08/18 22:42 Order name: Troponin High Sensitivity EDMS 08/18 20:24 Order name: XRAY Chest (1 view); Complete Time: 21:22 rt 08/18 22:32 Order name: BIPAP rt 08/18 20:24 Order name: EKG; Complete Time: 20:25 rt 08/18 22:46 Order name: Social Service Consult EDMS 08/18 20:24 Order name: Cardiac monitoring; Complete Time: 21:36 rt 08/18 20:24 Order name: EKG - Nurse/Tech; Complete Time: 21:36 rt 08/18 20:24 Order name: IV Saline Lock; Complete Time: 21:36 rt 08/18 20:24 Order name: Labs collected and sent; Complete Time: 21:36 rt 08/18 20:24 Order name: O2 Per Protocol; Complete Time: 21:36 rt 08/18 20:24 Order name: O2 Sat Monitoring; Complete Time: 21:36 rt EC:54 Rate is 92 beats/min. Rhythm is regular, Normal Sinus Rhythm with No ectopy. QRS Aubrey rt is Normal. CA interval is normal at 524 msec. QRS interval is normal. QT interval is prolonged at 524 msec. No Q waves. Clinical impression: NSR w/ Non-specific ST/T Changes. Administered Medications: 22:58 Drug: LevaQUIN IVPB 750 mg IVPB once Route: IVPB; Site: right antecubital; [facility] 23:19 Follow up: IV Status: Infusion continued upon admission [facility] 22:58 Drug: Furosemide IVP 40 mg IVP once; give over 2 minutes Route: IVP; Site: right 8 antecubital; 23:18 Follow up: Response: No adverse reaction [facility] Disposition Summary: 08/18/23 22:36 Hospitalization Ordered Notes: Hospitalization Status: Inpatient Admission rt Provider: Lobito Marrero rt Location: Telemetry/MedSurg (Inpatient) rt Condition: Fair rt Problem: an acute exacerbation rt Symptoms: have improved rt Bed/Room Type: Standard rt Room Assignment: 211(08/18/23 22:51) mw Diagnosis - Hypercarbic hypoxemic respiratory failure rt - Pneumonia rt Forms: - Medication Reconciliation Form rt - SBAR form rt - Leadership Thank You Letter rt Signatures: Dispatcher [employer] Simi Gamboa RN RN mw Stalin Hartley MD MD rt Daisy Duncan RN RN km8 Corrections: (The following items were deleted from the chart) 22:51 22:36 rt mw
--- NOTE | 2023-08-18 22:37 | ER ---
Nurse's Notes [facility] Name: Courtney Sawyer Age: 48 yrs Sex: Female : 1975 Arrival Date: 08/18/2023 Time: 20:14 Bed 15 Private MD: Diagnosis: Hypercarbic hypoxemic respiratory failure;Pneumonia Presentation: 08/18 20:28 Chief complaint: EMS states: was called out due to pt SpO2 sats in the high 70's' even km8 on pt's home BiPAP machine; pt reports feeling better on n/c; per EMS SpO2 sats increased from 78% to 95% when switched from BiPAP to 8L n/c; pt denies CP but is reporting SOB which is normal for her. 20:28 Method Of Arrival: EMS: [facility] km8 20:28 Coronavirus screen: Client denies travel out of the [place] in the last 14 days. At this km8 time, the client does not indicate any symptoms associated with coronavirus-19. Ebola Screen: No symptoms or risks identified at this time. Initial Sepsis Screen:. Initial Sepsis Screen: Does the patient meet any 2 criteria? RR > 20 per min. HR > 90 bpm. Yes Does the patient have a suspected source of infection? No. Patient's initial sepsis screen is negative. Risk Assessment: Do you want to hurt yourself or someone else? Patient reports no desire to harm self or others. Onset of symptoms was August 18, 2023. Care prior to arrival: O2 via n/c at 8L. 20:28 Acuity: LAURI 3 km8 Triage Assessment: 20:28 General: Appears in no apparent distress. comfortable, Behavior is calm, cooperative, km8 appropriate for age. Pain: Complains of pain in generalized Quality of pain is described as aching. EENT: No deficits noted. No signs and/or symptoms were reported regarding the EENT system. Neuro: Level of Consciousness is awake, alert, obeys commands, Oriented to person, place, time, situation. Cardiovascular: Reports shortness of breath, Denies chest pain, Capillary refill < 3 seconds Patient's skin is warm and dry. Respiratory: Airway is patent Respiratory effort is even, unlabored, Respiratory pattern is regular, symmetrical, Breath sounds are clear bilaterally. Parent/caregiver reports the patient having shortness of breath chronic for COPD. GI: No deficits noted. No signs and/or symptoms were reported involving the gastrointestinal system. : No deficits noted. No signs and/or symptoms were reported regarding the genitourinary system. Derm: No deficits noted. No signs and/or symptoms reported regarding the dermatologic system. Skin is intact, Skin is dry, Skin is normal, Skin temperature is warm. Musculoskeletal: No deficits noted. No signs and/or symptoms reported regarding the musculoskeletal system. Range of motion: intact in all extremities. 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 - Social history:: Smoking status: Patient denies any tobacco usage or history of. Patient/guardian denies using alcohol, street drugs. Screenin:28 [facility] ED Fall Risk Assessment (Adult) History of falling in the last 3 months, km8 including since admission No falls in past 3 months (0 pts) Confusion or Disorientation No (0 pts) Intoxicated or Sedated No (0 pts) Impaired Gait No (0 pts) Mobility Assist Device Used No (0 pt) Altered Elimination No (0 pt) Score/Fall Risk Level 0 - 2 = Low Risk Oriented to surroundings, Maintained a safe environment, Educated pt \T\ family on fall prevention, incl call for assistance when getting out of bed, Assessed \T\ reinforced patient's understanding of fall precautions. Abuse screen: Denies threats or abuse. Denies injuries from another. Nutritional screening: No deficits noted. Tuberculosis screening: No symptoms or risk factors identified. Assessment: 20:28 Reassessment: see triage notes/assessment. [facility] 22:12 Reassessment: Patient appears in no apparent distress at this time. No changes from 8 previously documented assessment. Patient and/or family updated on plan of care and expected duration. Pain level reassessed. Patient is alert, oriented x 3, equal unlabored respirations, skin warm/dry/pink. Vital Signs: 20:28 BP 123 / 81; Pulse 97; Resp 22; Pulse Ox 95% on 8 lpm NC; km8 20:45 BP 128 / 81; Pulse 97; Resp 22; Pulse Ox 97% on 8 lpm NC; km8 22:13 BP 136 / 69; Pulse 70; Resp 22; Pulse Ox 95% on 8 lpm NC; km8 23:05 BP 131 / 53; Pulse 87; Resp 20; Temp 98.4(O); Pulse Ox 96% on BiPAP; km8 ED Course: 20:23 Patient arrived in ED. as6 20:23 Stalin Hartley MD is Attending Physician. rt 20:27 Daisy Duncan, FREDERICK is Primary Nurse. km8 20:28 Oxygen administration via nasal cannula 8. km8 20:28 Arm band placed on right wrist. km8 20:28 Patient has correct armband on for positive identification. Placed in gown. Bed in low km8 position. Call light in reach. Side rails up X2. Client placed on continuous cardiac and pulse oximetry monitoring. NIBP monitoring applied. manager monitoring on. Door closed. Noise minimized. Warm blanket given. Pillow given. Head of bed elevated. 21:00 XRAY Chest (1 view) In Process Unspecified. EDMS 21:30 Warm blanket given. Repositioned patient. Cleaned of incontinence. Linen changed. km8 21:36 Basic Metabolic Panel Sent. km8 21:36 CBC with Diff Sent. km8 21:36 LFT's Sent. km8 21:36 Magnesium Sent. km8 21:36 NT PRO-BNP Sent. km8 21:36 Troponin HS Sent. km8 21:36 Inserted saline lock: 20 gauge in left wrist, using aseptic technique. Blood collected. km8 21:39 Triage completed. km8 22:36 Lobito Marrero MD is Hospitalizing Provider. rt 23:01 Inserted saline lock: 22 gauge in right antecubital area, using aseptic technique. km8 Blood collected. 23:16 No provider procedures requiring assistance completed. Patient admitted, IV remains in km8 place. 23:17 Provided Education on: admission process. km8 Administered Medications: 22:58 Drug: LevaQUIN IVPB 750 mg IVPB once Route: IVPB; Site: right antecubital; km8 23:19 Follow up: IV Status: Infusion continued upon admission km8 22:58 Drug: Furosemide IVP 40 mg IVP once; give over 2 minutes Route: IVP; Site: right km8 antecubital; 23:18 Follow up: Response: No adverse reaction km8 Medication: 20:28 VIS not applicable for this client. km8 Output: 23:16 Urine: 800ml (Voided); Total: 800ml. km8 Outcome: 22:36 Decision to Hospitalize by Provider. rt 23:17 Admitted to Med/surg accompanied by nurse, via stretcher, room 211, with chart, Report km8 called to FREDERICK Pang 23:17 Condition: stable 23:17 Discharge instructions given to patient, Instructed on the need for admit, Demonstrated understanding of instructions, 23:44 Patient left the ED. km8 Signatures: Dispatcher [employer] Nikos Del Rosario, FREDERICK RN as6 Stalin Hartley MD MD rt Daisy Duncan RN RN km8
--- NOTE | 2023-08-18 22:43 | P.HP ---
Certification for Inpatient Patient admitted to: Inpatient With expected LOS: >2 Midnights Patient will require the following post-hospital care: Mcfp Practitioner: I am a practitioner with admitting privileges, knowledge of patient current condition, hospital course, and medical plan of care. Services: Services provided to patient in accordance with Admission requirements found in Title 42 Section 412.3 of the Code of Federal Regulations Patient History Date of Service: 08/19/23 Reason for admission: SOB History of Present Illness: 48 yo female with past medical history of diabetes, hypertension, asthma, CHF, COPD,GERD, hypertension, anemia , obesity hypoventilation syndrome, on BiPAP at home, brought to ER with shortness of breath. Patient is a group home resident. Recently been admitted here with respiratory failure and was discharged. Patient started having worsening of symptoms 2 days ago and has been progressively worsening. Her pulse ox was reported as 72 associated with cough and was sent over here for further management. Denies any fever or chills. Patient is a poor historian hence most of the history is obtained from the chart review and also talking to the ER physician as she is on BiPAP Patient was seen and examined in ER and the work-up was consistent with possible pulmonary edema/pneumonia associated with hypoxic hypercapnic respiratory failure and was placed on BiPAP and was admitted for further management ; Allergies adhesive tape Adverse Reaction (Intermediate, Verified 03/26/22 06:12) Nausea/Vomiting codeine Adverse Reaction (Intermediate, Verified 03/26/22 06:12) Nausea/Vomiting Home medications list reviewed: Yes Home Medications: Aspirin [Aspirin EC 81 MG] 81 mg PO DAILY 03/26/22 Atorvastatin Calcium 40 mg PO BEDTIME 03/26/22 Benztropine Mesylate 1 mg PO BID 03/26/22 Docusate [Colace Cap*] 100 mg PO BID 03/26/22 Ergocalciferol (Vitamin D2) [Vitamin D2] 50,000 unit PO Q7D 03/26/22 Ferrous Sulfate 325 mg PO DAILY 03/26/22 Fexofenadine HCl [Jeri Allergy] 180 mg PO DAILY 03/26/22 Folic Acid 0.4 mg PO DAILY 03/26/22 Furosemide 80 mg PO DAILY 03/26/22 Gabapentin 300 mg PO TID 03/26/22 Metformin HCl [Glucophage*] 500 mg PO BID 03/26/22 Spironolactone [Aldactone*] 25 mg PO DAILY tab 03/31/22 Calcium Carbonate [Tums Regular*] 750 mg PO BID 03/15/23 Sertraline [Zoloft*] 100 mg PO DAILY 03/15/23 Albuterol Neb [Proventil 0.083% Neb Soln] 2.5 mg NEB [id number] amp 03/18/23 Insulin -Regular Human [Novolin -R*] See Protocol SQ ACHS ml 03/18/23 Insulin Glargine,Hum.rec.anlog [Insulin Glargine] 44 units SQ BEDTIME 08/15/23 Lidocaine 4% Patch [Lidoderm 5% Patch*] 1 patch TD DAILY 08/15/23 Potassium Chloride [K-Tab ER] 20 meq PO DAILY 08/15/23 Arformoterol Tartrate [Brovana] 15 mcg NEB BIDRESP vial.neb 08/16/23 Spironolactone [Aldactone*] 25 mg PO BID tab 08/16/23 acetaZOLAMIDE [Diamox*] 250 mg PO BID #60 tab 08/16/23 predniSONE [Prednisone*] 20 mg PO BID tab 08/16/23 - Past Medical/Surgical History Diabetic: Yes Past Medical History: Reviewed- Non-Contributory -: COPD -: DMII -: morbid obesity -: Asthma Past Surgical History: Reviewed- Non-Contributory -: laporoscopic tubal ligation Psychosocial/ Personal History: Patient is resident of group home - Family History Family History: Reviewed- Non-Contributory - Family History Father -: Heart disease, Diabetes Mother -: Heart disease, Diabetes - Social History Smoking Status: Never smoker Alcohol use: No CD- Drugs: No Caffeine use: Yes Review of Systems is unable to be obtained (As the Patient is on Bipap) General: Weakness, Malaise Eyes: Unremarkable ENT: Unremarkable Respiratory: Shortness of Breath, SOB with Excertion, Wheezing Cardiovascular: Orthopnea Gastrointestinal: Unremarkable Genitourinary: Unremarkable Musculoskeletal: Unremarkable Integumentary: Unremarkable Physical Examination - Vital Signs Temperature: 98.5 F Blood Pressure: 152/78 Pulse: 92 Respirations: 19 Pulse Ox (%): 96 - Physical Exam General: Alert, Moderate distress, Obese HEENT: Atraumatic, Normocephalic, PERRLA Neck: Supple, No Thyromegaly Respiratory: Diminished, Crackles/rales, Expiratory wheezes Cardiovascular: No edema, Regular rate/rhythm, Normal S1 S2 Capillary refill: <2 Seconds Gastrointestinal: Soft and benign, W/out hepatosplenomegaly Musculoskeletal: No clubbing, No erythema Integumentary: No rashes Neurological: Normal strength at 5/5 x4 extr, Normal tone, Cranial nerves 3-12 intact Lymphatics: No axilla or inguinal lymphadenopathy - Studies Laboratory Data (last 24 hrs) 08/18/23 08/18/23 21:34 21:34 WBC 9.30 Hgb 10.9 L Hct 34.2 L Plt Count 267 Sodium 140 Potassium 4.4 BUN 13 Creatinine 0.78 Glucose 332 H Magnesium 1.8 Total Bilirubin 0.4 AST 8 L ALT 19 Alkaline Phosphatase 75 Imagings Data: Xray Chest Reason for Exam: [id number] Report Status: Signed EXAM DESCRIPTION: Eric Single View08/18/2023 8:58 pm CLINICAL HISTORY: Shortness of breath COMPARISON: August 04, 2023 FINDINGS: Moderate alveolar opacities right lung Mild left lung opacities Heart is moderately enlarged IMPRESSION: Moderate right and mild left pulmonary opacities may represent pneumonia. Asymmetric pulmonary edema is another consideration Assessment and Plan - Problems (Diagnosis) (1) Respiratory failure with hypoxia and hypercapnia Current Visit: No Status: Acute Plan: ABG shows 7.29/83.6/76.9 Placed on BiPAP Monitor closely in telemetry Oxygen supplementation We will consult pulmonology Qualifiers: Chronicity: acute on chronic Qualified Code(s): J96.21 - Acute and chronic respiratory failure with hypoxia; J96.22 - Acute and chronic respiratory failure with hypercapnia (2) Acute exacerbation of CHF (congestive heart failure) Current Visit: Yes Status: Acute Plan: Elevated BNP found Possibly combined systolic/diastolic Echocardiogram ordered Started on aggressive diuresis Monitor closely on telemetry We will get a repeat x-ray in a.m. (3) Pulmonary edema Current Visit: Yes Status: Acute Plan: Patient has history of CHF X-ray is consistent with pulmonary edema/pneumonia Started on aggressive diuresis Antiplatelet medications Monitor closely in telemetry We will obtain an x-ray chest in a.m. (4) Pneumonia Current Visit: Yes Status: Acute Plan: X-ray noted Consistent with pneumonia versus pulmonary edema We will start on antibiotics empirically Obtain cultures Stop antibiotic if the patient is afebrile and no signs of infection (5) Obesity hypoventilation syndrome Current Visit: Yes Status: Chronic Plan: Continue home medications including Diamox Bronchodilators On BiPAP at home We will continue BiPAP (6) Diabetes Current Visit: Yes Status: Chronic Plan: Started on insulin sliding scale Will obtain A1c in a.m. We will hold metformin for now Accu-Chek before every meal and at bedtime (7) Hypertension Current Visit: Yes Status: Chronic Plan: Continue home medications and titrate as needed Antihypertensives titrated Hydralazine as needed Discharge Plan: Long Term Plan to discharge in: Greater than 2 days - Advance Directives Does patient have a Living Will: No Does patient have a Durable POA for Healthcare: No - Code Status/Comfort Care Code Status: Full Code Physician Review: Patient Assessed, Agree with Above Assessment and Plan Time Spent Managing Pts Care (In Minutes): 48
[2023-08-18] MEDS ORDERED: FUROSEMIDE 40 MG/4 ML VIAL ONE (22:56)
[2023-08-18] MEDS ORDERED: Levofloxacin 750mg IV 750 MG/150 ML BAG IV ONE (22:56)
[2023-08-19 00:51] VITALS: BMI 70.9
[2023-08-19] MEDS: IPRATROPIUM BROM 0.5MG/2.5ML NEB SCH ×4 (01:00→20:00)
[2023-08-19 01:06] LABS: Arterial Blood Carboxyhemoglob 1.9 % (0-1.5); Blood Gas Oxyhemoglobin 90.5 % (94-97); Blood O2 Saturation 93.6 % (92-98.5)
[2023-08-19] MEDS: FUROSEMIDE 40 MG/4 ML VIAL IV SCH ×3 (01:13→16:24)
[2023-08-19] MEDS: ACETAMINOPHEN 500 MG TAB PO PRN (01:13)
[2023-08-19] MEDS: ASPIRIN EC 81 MG TAB PO SCH (08:37)
[2023-08-19] MEDS: acetaZOLAMIDE 250 MG TAB PO SCH ×2 (08:37→21:48)
[2023-08-19] MEDS: BENZTROPINE 1 MG TAB PO SCH ×2 (08:37→21:48)
[2023-08-19] MEDS: CALCIUM CARBONATE CHEW 500MG TAB PO SCH ×2 (08:37→21:48)
[2023-08-19] MEDS: ARFORMOTEROL TARTRATE 15 MCG/2 ML VIAL.NEB NEB SCH ×2 (08:37→20:00)
[2023-08-19] MEDS: DOCUSATE NA 100 MG CAP PO SCH ×2 (08:37→21:48)
[2023-08-19] MEDS: SPIRONOLACTONE 25 MG TABLET PO SCH (08:38)
[2023-08-19] MEDS: AZITHROMYCIN IV 500 MG in NA CHLORIDE 0.9% 250 ML IVPB SCH (08:39)
[2023-08-19] MEDS: CEFTRIAXONE 1,000 MG in NA CHLORIDE 0.9% 50 ML IVPB SCH (08:39)
[2023-08-19] MEDS: HOME MED 1 EA UNK (Folic Acid [Folic Acid] 0.4 MG Tablet) PO SCH (08:39)
[2023-08-19] MEDS: LIDOCAINE 4% PATCH TD SCH (08:40)
[2023-08-19 10:09] LABS: Hematocrit 34.8 % (36.0-45.0); MCV 89.1 fL (80-100); MPV 8.2 fL (7.6-11.3); Platelets 271 thou/uL (152-406); RBC Red Blood Cell Count 3.91 M/uL (3.86-4.86)
[2023-08-19 10:29] LABS: Albumin 2.8 g/dL (3.4-5.0); Bilirubin Total 0.5 mg/dL (0.2-1.0); Potassium 3.8 mEq/L (3.5-5.1); Protein, Total 7.5 g/dL (6.4-8.2)
[2023-08-19] MEDS: FEXOFENADINE 180 MG TAB PO SCH (11:15)
--- NOTE | 2023-08-19 11:22 | P.PN ---
Subjective Date of Service: 08/19/23 Chief Complaint: SOB Review of Systems Respiratory: Shortness of Breath Physical Examination - Vital Signs Temperature: 98.5 F Blood Pressure: 105/52 Pulse: 66 Respirations: 19 Pulse Ox (%): 96 - Studies Laboratory Data (last 24 hrs) 08/18/23 08/18/23 21:34 21:34 WBC 9.30 Hgb 10.9 L Hct 34.2 L Plt Count 267 Sodium 140 Potassium 4.4 BUN 13 Creatinine 0.78 Glucose 332 H Magnesium 1.8 Total Bilirubin 0.4 AST 8 L ALT 19 Alkaline Phosphatase 75 Assessment And Plan Physician Review: Patient Assessed, Agree with Above Assessment and Plan Time Spent Managing PTS Care (In Minutes): 35
[2023-08-19] MEDS ORDERED: GLUCAGON 1 MG/VIAL IM PRN (11:23)
[2023-08-19] MEDS ORDERED: D50W 25 GM/50 ML SYRINGE IV PRN (11:23)
[2023-08-19] MEDS: INSULIN REGULAR (HUMAN) 100 UNIT/ML SQ SCH ×3 (12:32→22:05)
[2023-08-19 15:16] LABS: Specific Gravity 1.009 (1.005-1.030); Urine Bacteria <20 /HPF (<20); Urine Bilirubin NEGATIVE (Negative); Urine Blood 1+ (Negative); Urine Clarity Turbid (Clear); Urine Color Colorless (Yellow); Urine Crystals Unidentified Few /HPF (None Seen); Urine Glucose TRACE (Negative); Urine Protein NEGATIVE (Negative); Urine RBC <5 /HPF (None Seen); Urine Urobilinogen Normal (Normal); Urine pH 5.5 (5.0-7.0)
[2023-08-19] MEDS: ATORVASTATIN 40 MG TAB PO SCH (21:48)
[2023-08-19] MEDS: INSULIN GLARGINE 100 UNIT/ML SQ SCH (22:04)
[2023-08-20] MEDS: ACETAMINOPHEN 500 MG TAB PO PRN (00:41)
[2023-08-20] MEDS: FUROSEMIDE 40 MG/4 ML VIAL IV SCH ×3 (00:43→17:00)
[2023-08-20] MEDS: IPRATROPIUM BROM 0.5MG/2.5ML NEB SCH ×4 (02:10→20:16)
[2023-08-20] MEDS: INSULIN REGULAR (HUMAN) 100 UNIT/ML SQ SCH ×4 (08:41→21:18)
[2023-08-20] MEDS: ASPIRIN EC 81 MG TAB PO SCH (08:42)
[2023-08-20] MEDS: CALCIUM CARBONATE CHEW 500MG TAB PO SCH ×2 (08:42→21:17)
[2023-08-20] MEDS: BENZTROPINE 1 MG TAB PO SCH ×2 (08:42→21:18)
[2023-08-20] MEDS: SPIRONOLACTONE 25 MG TABLET PO SCH (08:44)
[2023-08-20] MEDS: FEXOFENADINE 180 MG TAB PO SCH (08:44)
[2023-08-20] MEDS: acetaZOLAMIDE 250 MG TAB PO SCH ×2 (08:44→21:17)
[2023-08-20] MEDS: LIDOCAINE 4% PATCH TD SCH (08:45)
[2023-08-20] MEDS: AZITHROMYCIN IV 500 MG in NA CHLORIDE 0.9% 250 ML IVPB SCH (08:45)
[2023-08-20] MEDS: DOCUSATE NA 100 MG CAP PO SCH ×2 (08:45→21:17)
[2023-08-20] MEDS: CEFTRIAXONE 1,000 MG in NA CHLORIDE 0.9% 50 ML IVPB SCH (08:46)
[2023-08-20] MEDS: HOME MED 1 EA UNK (Folic Acid [Folic Acid] 0.4 MG Tablet) PO SCH (08:46)
[2023-08-20] MEDS: ARFORMOTEROL TARTRATE 15 MCG/2 ML VIAL.NEB NEB SCH ×2 (09:08→20:26)
[2023-08-20] MEDS ORDERED: INFLUENZA VACCINE (for 6+ mo) 0.5 ML DOSE IMVAC ONE (12:00)
[2023-08-20] MEDS: ATORVASTATIN 40 MG TAB PO SCH (21:17)
[2023-08-20] MEDS: INSULIN GLARGINE 100 UNIT/ML SQ SCH (21:18)
[2023-08-20] MEDS: GABAPENTIN 300 MG CAP PO SCH (21:53)
[2023-08-21] MEDS: FUROSEMIDE 40 MG/4 ML VIAL IV SCH ×3 (00:17→20:51)
[2023-08-21] MEDS: IPRATROPIUM BROM 0.5MG/2.5ML NEB SCH ×4 (01:57→20:00)
--- NOTE | 2023-08-21 06:35 | P.PN ---
Date of Service: 08/20/23 Subjective Date of Service: 08/19/23 Subjective: No new changes, Improving Patient is doing well. Patient was sent here with her CPAP. She is not on a BiPAP at the nursing facility. Will need to go ahead and get this arranged as an outpatient.We will try to get this sent to [facility]. That way they do not keep sending her back to our hospital. She looks better than she is looked during her 2 hospital stays. She is wanting to go back but she would like the issue with her BiPAP addressed prior to her leaving. She brought her CPAP with her to the hospital. Review of Systems 10-point ROS is otherwise unremarkable Physical Examination - Vital Signs Temperature: 97.2 F Blood Pressure: 130/52 Pulse: 80 Respirations: 20 Pulse Ox (%): 93 - Physical Exam General: Alert, In no apparent distress, Oriented x3, Obese HEENT: Atraumatic, PERRLA, EOMI Neck: Supple, JVD not distended Respiratory: Clear to auscultation bilaterally, Normal air movement Cardiovascular: Regular rate/rhythm, Normal S1 S2 Gastrointestinal: Normal bowel sounds, No tenderness Musculoskeletal: No tenderness Integumentary: No rashes Neurological: Normal speech, Normal tone, Normal affect Lymphatics: No axilla or inguinal lymphadenopathy - Studies Medications List Reviewed: Yes Assessment & Plan - Problems (Diagnosis) (1) Acute exacerbation of CHF (congestive heart failure) Current Visit: Yes Status: Acute (2) Pulmonary edema Current Visit: Yes Status: Acute (3) Diabetes Current Visit: Yes Status: Chronic (4) Hypertension Current Visit: Yes Status: Chronic (5) Obesity hypoventilation syndrome Current Visit: Yes Status: Chronic (6) Respiratory failure with hypoxia and hypercapnia Current Visit: No Status: Acute Qualifiers: Chronicity: acute on chronic Qualified Code(s): J96.21 - Acute and chronic respiratory failure with hypoxia; J96.22 - Acute and chronic respiratory failure with hypercapnia - Plan Plan: 1. Continue with BiPAP support 2. Monitor labs 3. We will get pulmonary to assist us and try to get her a BiPAP at the [facility] 4. Case management or social work consultation to assist in arranging for this. Patient is back to her baseline. She is clinically doing well. She would be able to discharge but my concern is that they will send her right back as they probably will not be comfortable with caring for her unless she has a BiPAP. We will work on this and hopefully we can get her discharged on Monday. GI DVT prophylaxis Discharge Plan: Skilled Nursing Plan to discharge in: Greater than 2 days - Advance Directives Does patient have a Living Will: No Does patient have a Durable POA for Healthcare: No - Code Status/Comfort Care Code Status: Full Code Physician Review: Patient Assessed, Agree with Above Assessment and Plan Critical Care: No Time Spent Managing PTS Care (In Minutes): 35
[2023-08-21] MEDS: ARFORMOTEROL TARTRATE 15 MCG/2 ML VIAL.NEB NEB SCH ×2 (08:00→20:00)
--- NOTE | 2023-08-21 08:37 | P.CNS ---
Date of Consult: 08/21/23 Reason for Consult: Respiratory distress Chief Complaint: SOB History of Present Illness: Patient is 48 years of age with a history of hypoventilation syndrome was just recently discharged came back again started having worsening shortness of breath chest x-ray shows bilateral changes pulmonary edema versus pneumonia also complaining of a cough problems using her machine at home apparently she does have a BiPAP ST BiPAP with a backup rate Allergies adhesive tape Adverse Reaction (Intermediate, Verified 03/26/22 06:12) Nausea/Vomiting codeine Adverse Reaction (Intermediate, Verified 03/26/22 06:12) Nausea/Vomiting Home Medications: Aspirin [Aspirin EC 81 MG] 81 mg PO DAILY 03/26/22 Atorvastatin Calcium 40 mg PO BEDTIME 03/26/22 Benztropine Mesylate 1 mg PO Q12H 03/26/22 Docusate [Colace Cap*] 100 mg PO BID 03/26/22 Ergocalciferol (Vitamin D2) [Vitamin D2] 50,000 unit PO Q7D 03/26/22 Fexofenadine HCl [Jeri Allergy] 180 mg PO DAILY 03/26/22 Folic Acid 0.4 mg PO DAILY 03/26/22 Furosemide 80 mg PO DAILY 03/26/22 Gabapentin 300 mg PO TID 03/26/22 Metformin HCl [Glucophage*] 500 mg PO BID 03/26/22 Calcium Carbonate [Tums Regular*] 750 mg PO BID 03/15/23 Sertraline [Zoloft*] 100 mg PO DAILY 03/15/23 Albuterol Neb [Proventil 0.083% Neb Soln] 2.5 mg NEB [id number] amp 03/18/23 Insulin -Regular Human [Novolin -R*] See Protocol SQ ACHS ml 03/18/23 Insulin Glargine,Hum.rec.anlog [Insulin Glargine] 44 units SQ BEDTIME 08/15/23 Lidocaine 4% Patch [Lidoderm 5% Patch*] 1 patch TD DAILY 08/15/23 Potassium Chloride [K-Tab ER] 20 meq PO DAILY 08/15/23 Arformoterol Tartrate [Brovana] 15 mcg NEB BIDRESP vial.neb 08/16/23 Spironolactone [Aldactone*] 25 mg PO BID tab 08/16/23 acetaZOLAMIDE [Diamox*] 250 mg PO BID #60 tab 08/16/23 predniSONE [Prednisone*] 20 mg PO BID tab 08/16/23 Ammonium Lactate 1 appl TOP BID 08/19/23 Aripiprazole [Abilify] 1 tab PO DAILY 08/19/23 - Past Medical/Surgical History Diabetic: Yes -: COPD -: DMII -: morbid obesity -: Asthma -: laporoscopic tubal ligation Psychosocial/ Personal History: Patient is resident of [facility] - Family History Father Medical History: Heart disease, Diabetes Mother Medical History: Heart disease, Diabetes - Social History Alcohol use: No CD- Drugs: No Caffeine use: Yes Review of Systems 10-point ROS is otherwise unremarkable General: Weakness Respiratory: Shortness of Breath Physical Examination Temp Pulse Resp BP Pulse Ox 97.2 F 80 20 130/52 L 93 08/21/23 06:34 08/21/23 06:34 08/21/23 06:34 08/21/23 06:34 08/21/23 06:34 General: Alert, In no apparent distress, Oriented x3 Respiratory: Clear to auscultation bilaterally, Normal air movement Cardiovascular: No edema, Regular rate/rhythm, Normal S1 S2 - Problems (1) Respiratory failure with hypoxia and hypercapnia Current Visit: No Status: Acute Plan: Patient is 48 years of age recurrent hospital admissions obstructive airways disease/obesity hypoventilation syndrome currently she became worse developed more shortness of breath chest x-ray shows bilateral changes pulmonary edema versus pneumonia labs reviewed bicarbonate elevated white count is normal BNP is also elevated continue with IV Lasix Diamox spironolactone Look at her BiPAP she has a BiPAP ST set at 20/9 I will change it to 20/12 patient needs to use her BiPAP while in the hospital as she complains of having problems with the BiPAP and did bring her own gel mask echo with Doppler changed to IV levofloxacin reduce Lasix every 12 hours to avoid an alkalosis Qualifiers: Chronicity: acute on chronic Qualified Code(s): J96.21 - Acute and chronic respiratory failure with hypoxia; J96.22 - Acute and chronic respiratory failure with hypercapnia
[2023-08-21] MEDS: FEXOFENADINE 180 MG TAB PO SCH (08:38)
[2023-08-21] MEDS: INSULIN REGULAR (HUMAN) 100 UNIT/ML SQ SCH ×4 (08:38→20:50)
[2023-08-21] MEDS: acetaZOLAMIDE 250 MG TAB PO SCH ×2 (08:39→20:51)
[2023-08-21] MEDS: LIDOCAINE 4% PATCH TD SCH (08:39)
[2023-08-21] MEDS: CALCIUM CARBONATE CHEW 500MG TAB PO SCH ×2 (08:39→20:52)
[2023-08-21] MEDS: Levofloxacin 750mg IV 750 MG/150 ML BAG IV SCH (08:39)
[2023-08-21] MEDS: BENZTROPINE 1 MG TAB PO SCH ×2 (08:40→20:51)
[2023-08-21] MEDS: ASPIRIN EC 81 MG TAB PO SCH (08:40)
[2023-08-21] MEDS: DOCUSATE NA 100 MG CAP PO SCH ×2 (08:40→20:51)
[2023-08-21] MEDS: HOME MED 1 EA UNK (Folic Acid [Folic Acid] 0.4 MG Tablet) PO SCH (08:40)
[2023-08-21] MEDS: SPIRONOLACTONE 25 MG TABLET PO SCH ×2 (08:40→20:51)
--- NOTE | 2023-08-21 09:02 | P.PN ---
Date of Service: 08/21/23 Subjective Subjective: No new changes, Improving Patient is alert and oriented Reports that she slept better on the Hospital Bipap machine Patient is doing well. Patient was sent here with her CPAP. She is not on a BiPAP at the nursing facility. Will need to go ahead and get this arranged as an outpatient. We will try to get this sent to [facility]. She is wanting to go back but she would like the issue with her BiPAP addressed prior to her leaving. She brought her CPAP with her to the hospital. Review of Systems 10-point ROS is otherwise unremarkable Physical Examination - Vital Signs Temperature: 97.2 F Blood Pressure: 115/66 Pulse: 76 Respirations: 20 Pulse Ox (%): 93 - Physical Exam General: Alert, In no apparent distress, Oriented x3, Obese HEENT: Atraumatic, PERRLA, EOMI Neck: Supple, JVD not distended Respiratory: Clear to auscultation bilaterally, Normal air movement Cardiovascular: Regular rate/rhythm, Normal S1 S2 Gastrointestinal: Normal bowel sounds, No tenderness Neurological: Normal speech, Normal tone, Normal affect Lymphatics: No axilla or inguinal lymphadenopathy - Studies Medications List Reviewed: Yes Assessment & Plan - Problems (Diagnosis) (1) Acute exacerbation of CHF (congestive heart failure) Current Visit: Yes Status: Acute (2) Pulmonary edema Current Visit: Yes Status: Acute (3) Diabetes Current Visit: Yes Status: Chronic (4) Hypertension Current Visit: Yes Status: Chronic (5) Obesity hypoventilation syndrome Current Visit: Yes Status: Chronic (6) Respiratory failure with hypoxia and hypercapnia Current Visit: No Status: Acute Qualifiers: Chronicity: acute on chronic Qualified Code(s): J96.21 - Acute and chronic respiratory failure with hypoxia; J96.22 - Acute and chronic respiratory failure with hypercapnia - Plan Plan: 1. obstructive airways disease/obesity hypoventilation syndrome currently using hospital Bipap Machine. -Pt reports her breathing and sleeping is better now. COntinue hospital Bipap for now. - chest x-ray shows bilateral changes pulmonary edema versus pneumonia. Continue IV Lasix Diamox spironolactone - labs reviewed bicarbonate elevated white count is normal BNP is also elevated continue with IV Lasix Diamox spironolactone 2. Monitor labs 3. We will get pulmonary to assist us and try to [facility] a [facility] 4. Case management or social work consultation to assist in arranging for this. Patient is back to her baseline. She is clinically doing well. She would be able to discharge but my concern is that they will send her right back as they probably will not be comfortable with caring for her unless she has a BiPAP. We will work on this and hopefully we can get her discharged on Monday 5. GI DVT prophylaxis Discharge Plan: Jail Plan to discharge in: Greater than 2 days - Code Status/Comfort Care Code Status: Full Code Diet: Regular DVT Prophylaxis: Time Spent Managing PTS Care (In Minutes): 35
--- NOTE | 2023-08-21 10:47 | RAD REPORT ---
EXAM DESCRIPTION: RAD - Chest Single View - 08/21/2023 10:37 am CLINICAL HISTORY: resp failure Chest pain. COMPARISON: Chest Single View dated 08/18/2023; Chest Single View dated 08/14/2023; Chest Single View dated 03/14/2023; Chest Single View dated 03/27/2022 FINDINGS: Portable technique limits examination quality. Bilateral pulmonary opacities are present, greater on the right, showing moderate since 08/18/2023. T he heart is mildly enlarged in size. No displaced fractures. IMPRESSION: Moderate improvement is seen in lung aeration since the comparative study.
[2023-08-21 11:10] LABS: Hematocrit 35.7 % (36.0-45.0); Lymphocytes % 21.3 % (15.3-44.8); MCV 88.9 fL (80-100); MPV 7.7 fL (7.6-11.3); Platelets 294 thou/uL (152-406); RBC Red Blood Cell Count 4.01 M/uL (3.86-4.86)
[2023-08-21 11:26] LABS: Potassium 3.7 mEq/L (3.5-5.1)
[2023-08-21 11:28] LABS: Albumin 2.7 g/dL (3.4-5.0); Bilirubin Total 0.4 mg/dL (0.2-1.0); Potassium 3.7 mEq/L (3.5-5.1); Protein, Total 7.4 g/dL (6.4-8.2)
[2023-08-21 16:05] LABS: Arterial Blood Carboxyhemoglob 1.6 % (0-1.5); Blood Gas Oxyhemoglobin 85.4 % (94-97); Blood O2 Saturation 87.7 % (92-98.5)
[2023-08-21] MEDS: INSULIN GLARGINE 100 UNIT/ML SQ SCH (20:50)
[2023-08-21] MEDS: ATORVASTATIN 40 MG TAB PO SCH (20:51)
[2023-08-21] MEDS: GABAPENTIN 300 MG CAP PO SCH (20:51)
[2023-08-22] MEDS: IPRATROPIUM BROM 0.5MG/2.5ML NEB SCH ×4 (02:00→19:35)
--- NOTE | 2023-08-22 07:10 | RAD REPORT ---
EXAM DESCRIPTION: Eric Single View08/22/2023 4:45 am CLINICAL HISTORY: Respiratory failure COMPARISON: August 21, 2023 FINDINGS: Bilateral pulmonary opacities have mostly resolved Heart is mildly enlarged
[2023-08-22] MEDS: ARFORMOTEROL TARTRATE 15 MCG/2 ML VIAL.NEB NEB SCH ×2 (07:40→19:35)
[2023-08-22] MEDS: LIDOCAINE 4% PATCH TD SCH (08:23)
[2023-08-22] MEDS: FUROSEMIDE 40 MG/4 ML VIAL IV SCH (08:24)
[2023-08-22] MEDS: acetaZOLAMIDE 250 MG TAB PO SCH ×2 (08:24→20:32)
[2023-08-22] MEDS: BENZTROPINE 1 MG TAB PO SCH ×2 (08:24→20:32)
[2023-08-22] MEDS: SPIRONOLACTONE 25 MG TABLET PO SCH ×2 (08:24→20:33)
[2023-08-22] MEDS: ASPIRIN EC 81 MG TAB PO SCH (08:24)
[2023-08-22] MEDS: DOCUSATE NA 100 MG CAP PO SCH ×2 (08:24→20:32)
[2023-08-22] MEDS: Levofloxacin 750mg IV 750 MG/150 ML BAG IV SCH (08:25)
[2023-08-22] MEDS: INSULIN REGULAR (HUMAN) 100 UNIT/ML SQ SCH ×4 (08:25→20:38)
[2023-08-22] MEDS: FEXOFENADINE 180 MG TAB PO SCH (08:25)
[2023-08-22] MEDS: CALCIUM CARBONATE CHEW 500MG TAB PO SCH ×2 (08:25→20:31)
--- NOTE | 2023-08-22 08:25 | P.PN ---
Subjective Date of Service: 08/22/23 Chief Complaint: SOB Subjective: No new changes, Tolerating diet, Improving, Doing well Alert oriented x3 No acute distress noticed Patient reports she used her on CPAP machine last night Denies any new complaints at this time Vitals stable Review of Systems 10-point ROS is otherwise unremarkable Physical Examination - Vital Signs Temperature: 97.1 F Blood Pressure: 118/64 Pulse: 89 Respirations: 18 Pulse Ox (%): 91 - Physical Exam General: Alert, Oriented x3 HEENT: Atraumatic, PERRLA Neck: Supple, 2+ carotid pulse no bruit Respiratory: Clear to auscultation bilaterally, Normal air movement Cardiovascular: No edema, Normal pulses Gastrointestinal: Normal bowel sounds, Soft and benign Musculoskeletal: No clubbing, No swelling Integumentary: Erythema (Lower extremity mild redness, no edema, no inflammation), Other (Obese bed confined) - Studies Medications List Reviewed: Yes Assessment And Plan - Plan (1) Acute exacerbation of CHF (congestive heart failure) Current Visit: Yes Status: Acute (2) Pulmonary edema Current Visit: Yes Status: Acute (5) Obesity hypoventilation syndrome Current Visit: Yes Status: Chronic (6) Respiratory failure with hypoxia and hypercapnia Current Visit: No Status: Acute Qualifiers: Chronicity: acute on chronic Qualified Code(s): J96.21 - Acute and chronic respiratory failure with hypoxia; J96.22 - Acute and chronic respiratory failure with hypercapnia 1. Obstructive airways disease/obesity hypoventilation syndrome. Used patient's own CPAP machine last night. -Pt reports her breathing and sleeping is better now. Continue own Bipap for now. -On albuterol for rescue and Brovana for maintenance - on IV Lasix Diamox, spironolactone 2. Monitor labs 3. We will get pulmonary to assist us and try to get her a BiPAP at the [facility] 4. Case management or social work consultation to assist in arranging for this. Patient is back to her baseline. She is clinically doing well. She would be able to discharge but my concern is that they will send her right back as they probably will not be comfortable with caring for her unless she has a BiPAP. We will work on this and hopefully we can get her discharged. 5. GI DVT prophylaxis (3) Diabetes Current Visit: Yes Status: Chronic Chronic, controlled on insulin Hypoglycemic precautions Blood sugar before meals and at bedtime sliding scale of insulin Diabetic diet (4) Hypertension Current Visit: Yes Status: Chronic Chronic, controlled Continue the current medications Code Status: Full Code Diet: Regular DVT Prophylaxis: Discharge Plan: Long Term Plan to discharge in: 24 Hours - Code Status/Comfort Care Code Status Assessed: Yes (Full code) Code Status: Full Code Physician Review: Patient Assessed, Agree with Above Assessment and Plan Critical Care: No Time Spent Managing PTS Care (In Minutes): 35 (Minutes)
[2023-08-22] MEDS: HOME MED 1 EA UNK (Folic Acid [Folic Acid] 0.4 MG Tablet) PO SCH (08:27)
[2023-08-22] MEDS: GABAPENTIN 300 MG CAP PO SCH ×3 (10:55→20:34)
[2023-08-22] MEDS ORDERED: ALBUTEROL 2.5 MG/3 ML NEB SOL NEB PRN (12:00)
--- NOTE | 2023-08-22 14:19 | P.DS ---
Admission Date: 08/18/23 Discharge Date: 08/22/23 Disposition: TRANSFER TO CARE HOME Discharge Condition: FAIR Reason for Admission: SOB - Problems (1) Acute exacerbation of CHF (congestive heart failure) Current Visit: Yes Status: Acute (2) Pulmonary edema Current Visit: Yes Status: Acute (3) Respiratory distress Current Visit: Yes Status: Acute (4) Diabetes Current Visit: Yes Status: Chronic (5) Hypertension Current Visit: Yes Status: Chronic (6) Obesity hypoventilation syndrome Current Visit: Yes Status: Chronic (7) Respiratory failure with hypoxia and hypercapnia Current Visit: No Status: Acute Qualifiers: Chronicity: acute on chronic Qualified Code(s): J96.21 - Acute and chronic respiratory failure with hypoxia; J96.22 - Acute and chronic respiratory failure with hypercapnia Brief History of Present Illness: Date of Service: 08/19/23 Reason for admission: SOB History of Present Illness: 48 yo female with past medical history of diabetes, hypertension, asthma, CHF, COPD,GERD, hypertension, anemia , obesity hypoventilation syndrome, on BiPAP at home, brought to ER with shortness of breath. Patient is a long term resident. Recently been admitted here with respiratory failure and was discharged. Patient started having worsening of symptoms 2 days ago and has been progressively worsening. Her pulse ox was reported as 72 associated with cough and was sent over here for further management. Denies any fever or chills. Patient is a poor historian hence most of the history is obtained from the chart review and also talking to the ER physician as she is on BiPAP Patient was seen and examined in ER and the work-up was consistent with possible pulmonary edema/pneumonia associated with hypoxic hypercapnic respiratory failure and was placed on BiPAP and was admitted for further management Hospital Course: Ms. Sawyer is a pleasant 48-year-old female with a past medical history significant for diabetes, hypertension, asthma, CHF, COPD, GERD, anemia, obesity, hypoventilation syndrome on BiPAP. Who was admitted to the [facility] on 08/19/2023 for possible pulmonary edema/pneumonia associated with hypoxic hypercapnic respiratory failure and was placed on BiPAP and admitted for further management. Patient was using a hospital BiPAP, seen by paper tube grader, adjusted BiPAP settings transitioned to patient's own CPAP last night patient slept comfortably without no breathing issues. On 08/22/2023, patient was seen on morning rounds and deemed medically stable for discharge. Patient was discharged with instructions to schedule follow-up appointments with PCP. Patient was provided prescriptions for [text]. Follow-up PCP in 3 to 5 days Vital Signs/Physical Exam: Temp Pulse Resp BP Pulse Ox 97.6 F 96 H 20 118/62 95 08/22/23 12:00 08/22/23 12:00 08/22/23 12:00 08/22/23 12:00 08/22/23 12:00 General: Alert, Oriented x3 HEENT: Atraumatic, PERRLA Neck: Supple, 2+ carotid pulse no bruit Respiratory: Clear to auscultation bilaterally, Normal air movement Cardiovascular: No edema, Normal pulses Gastrointestinal: Normal bowel sounds, Soft and benign Musculoskeletal: No clubbing, No swelling Integumentary: No rashes, No breakdown, No significant lesion Neurological: Normal speech, Normal affect Laboratory Data at Discharge: WBC 9.50 thou/uL (4.3-10.9) 08/21/23 10:50 Hgb 11.7 g/dL (12.0-15.0) L 08/21/23 10:50 Hct 35.7 % (36.0-45.0) L 08/21/23 10:50 Plt Count 294 thou/uL (152-406) 08/21/23 10:50 Sodium 134 mEq/L (136-145) L 08/21/23 10:50 Sodium 134 mEq/L (136-145) L 08/21/23 10:50 Potassium 3.7 mEq/L (3.5-5.1) 08/21/23 10:50 Potassium 3.7 mEq/L (3.5-5.1) 08/21/23 10:50 BUN 16 mg/dL (7-18) 08/21/23 10:50 BUN 16 mg/dL (7-18) 08/21/23 10:50 Creatinine 0.70 mg/dL (0.55-1.02) 08/21/23 10:50 Creatinine 0.72 mg/dL (0.55-1.02) 08/21/23 10:50 Glucose 283 mg/dL (74-106) H 08/21/23 10:50 Glucose 286 mg/dL (74-106) H 08/21/23 10:50 Magnesium 1.8 mg/dL (1.6-2.4) 08/18/23 21:34 Total Bilirubin 0.4 mg/dL (0.2-1.0) 08/21/23 10:50 AST 11 U/L (15-37) L 08/21/23 10:50 ALT 19 U/L (13-56) 08/21/23 10:50 Alkaline Phosphatase 78 U/L (45-117) 08/21/23 10:50 Home Medications: Aspirin [Aspirin EC 81 MG] 81 mg PO DAILY 03/26/22 Atorvastatin Calcium 40 mg PO BEDTIME 03/26/22 Benztropine Mesylate 1 mg PO Q12H 03/26/22 Docusate [Colace Cap*] 100 mg PO BID 03/26/22 Ergocalciferol (Vitamin D2) [Vitamin D2] 50,000 unit PO Q7D 03/26/22 Fexofenadine HCl [Jeri Allergy] 180 mg PO DAILY 03/26/22 Folic Acid 0.4 mg PO DAILY 03/26/22 Furosemide 80 mg PO DAILY 03/26/22 Gabapentin 300 mg PO TID 03/26/22 Metformin HCl [Glucophage*] 500 mg PO BID 03/26/22 Calcium Carbonate [Tums Regular*] 750 mg PO BID 03/15/23 Sertraline [Zoloft*] 100 mg PO DAILY 03/15/23 Albuterol Neb [Proventil 0.083% Neb Soln] 2.5 mg NEB [id number] amp 03/18/23 Insulin -Regular Human [Novolin -R*] See Protocol SQ ACHS ml 03/18/23 Insulin Glargine,Hum.rec.anlog [Insulin Glargine] 44 units SQ BEDTIME 08/15/23 Lidocaine 4% Patch [Lidoderm 5% Patch*] 1 patch TD DAILY 08/15/23 Potassium Chloride [K-Tab ER] 20 meq PO DAILY 08/15/23 Arformoterol Tartrate [Brovana] 15 mcg NEB BIDRESP vial.neb 08/16/23 Spironolactone [Aldactone*] 25 mg PO BID tab 08/16/23 acetaZOLAMIDE [Diamox*] 250 mg PO BID #60 tab 11/01/23 predniSONE [Prednisone*] 20 mg PO BID tab 08/16/23 Ammonium Lactate 1 appl TOP BID 08/19/23 Aripiprazole [Abilify] 1 tab PO DAILY 08/19/23 Physician Discharge Instructions: Ms. Sawyer is a pleasant 48-year-old female with a past medical history significant for diabetes, hypertension, asthma, CHF, COPD, GERD, anemia, obesity, hypoventilation syndrome on BiPAP. Who was admitted to the [facility] on 08/19/2023 for possible pulmonary edema/pneumonia associated with hypoxic hypercapnic respiratory failure and was placed on BiPAP and admitted for further management. Patient was using a hospital BiPAP, seen by paper tube grader, adjusted BiPAP settings transitioned to patient's own CPAP last night patient slept comfortably without no breathing issues. On 08/22/2023, patient was seen on morning rounds and deemed medically stable for discharge. Patient was discharged with instructions to schedule follow-up appointments with PCP. Follow-up with the paper tube grader Dr. Tee in 2 to 4 weeks -No new prescriptions -Continue to use CPAP at bedtime Please Follow-up PCP in 3 to [address] Tee 2 to 4 weeks Diet: ADA Activity: Ad debi Followup: Baldemar Mcintyre MD [ACTIVE - CAN ADMIT] - (call to schedule an appointment in 2-4 weeks.) Time spent managing pt's care (in minutes): 55 (minuts)
--- NOTE | 2023-08-22 16:28 | P.PN ---
Subjective Date of Service: 08/22/23 Chief Complaint: Respiratory failure Subjective: Improving (Problem with mask extensive leak Breathing has improved) Review of Systems Respiratory: Shortness of Breath Physical Examination - Vital Signs Temperature: 97.6 F Blood Pressure: 118/62 Pulse: 96 Respirations: 20 Pulse Ox (%): 95 - Physical Exam General: Alert, In no apparent distress, Oriented x3 Respiratory: Clear to auscultation bilaterally Cardiovascular: Edema - Studies Medications List Reviewed: Yes Assessment And Plan - Current Problems (Diagnosis) (1) Respiratory failure with hypoxia and hypercapnia Current Visit: No Status: Acute Plan: AW chronic respiratory failure secondary to obesity hypoventilation system. Chronic hypercapnia. Change mask and possible change to NIV contacted Viemed/ CXRY cleared/ Labs reviewed. LAsix to 40 mg daily DC Levaquin Discharge planning Qualifiers: Chronicity: acute on chronic Qualified Code(s): J96.21 - Acute and chronic respiratory failure with hypoxia; J96.22 - Acute and chronic respiratory failure with hypercapnia Physician Review: Patient Assessed, Agree with Above Assessment and Plan
[2023-08-22] MEDS: ATORVASTATIN 40 MG TAB PO SCH (20:32)
[2023-08-22] MEDS: INSULIN GLARGINE 100 UNIT/ML SQ SCH (20:35)
[2023-08-23] MEDS: IPRATROPIUM BROM 0.5MG/2.5ML NEB SCH ×2 (01:50→08:45)
--- NOTE | 2023-08-23 08:32 | ECHO ---
HEIGHT: 5 ft 9 in WEIGHT: 480 lb 1.6 oz DATE OF STUDY: 08/21/[address]: Leroy Marrero DO 2-DIMENSIONAL: YES M.MODE: YES DOPPLER: YES COLOR FLOW: YES TDS: YES PORTABLE: YES DEFINITY: BUBBLE STUDY: DIAGNOSIS: CONGESTIVE HEART FAILURE CARDIAC HISTORY: CATHERIZATION: SURGERY: PROSTHETIC VALVE: PACEMAKER: MEASUREMENTS (cm) DIASTOLIC (NORMALS) SYSTOLIC (NORMALS) IVSd 1.1 (0.6-1.2) LA Diam 3.9 (1.9-4.0) LVEF 77% LVIDd 3.8 (3.5-5.7) LVIDs 2.1 (2.0-3.5) %FS 45% LVPWd 1.3 (0.6-1.2) Ao Diam 2.3 (2.0-3.7) 2 DIMENSIONAL ASSESSMENT: RIGHT ATRIUM: LEFT ATRIUM: RIGHT VENTRICLE: LEFT VENTRICLE: TRICUSPID VALVE: MITRAL VALVE: PULMONIC VALVE: AORTIC VALVE: PERICARDIAL EFFUSION: AORTIC ROOT: LEFT VENTRICULAR WALL MOTION: DOPPLER/COLOR FLOW: COMMENTS: 1. POOR WINDOWS 2. UNABLE TO EVALUATE THE HEART DUE TO POOR VIZUALIZATION TECHNOLOGIST: SHAQ TORRES
[2023-08-23] MEDS: ARFORMOTEROL TARTRATE 15 MCG/2 ML VIAL.NEB NEB SCH (08:45)
[2023-08-23] MEDS ORDERED: FUROSEMIDE 40 MG TABLET PO SCH (09:00)
[2023-08-23] MEDS: HOME MED 1 EA UNK (Folic Acid [Folic Acid] 0.4 MG Tablet) PO SCH (09:00)
[2023-08-23] MEDS: acetaZOLAMIDE 250 MG TAB PO SCH (09:25)
[2023-08-23] MEDS: DOCUSATE NA 100 MG CAP PO SCH (09:26)
[2023-08-23] MEDS: SPIRONOLACTONE 25 MG TABLET PO SCH (09:27)
[2023-08-23] MEDS: BENZTROPINE 1 MG TAB PO SCH (09:27)
[2023-08-23] MEDS: LIDOCAINE 4% PATCH TD SCH (09:28)
[2023-08-23] MEDS: INSULIN REGULAR (HUMAN) 100 UNIT/ML SQ SCH ×2 (09:28→12:13)
[2023-08-23] MEDS: ASPIRIN EC 81 MG TAB PO SCH (09:28)
[2023-08-23] MEDS: GABAPENTIN 300 MG CAP PO SCH (09:28)
[2023-08-23] MEDS: FEXOFENADINE 180 MG TAB PO SCH (09:28)
[2023-08-23 09:31] VITALS: BP 112/64
[2023-08-23] MEDS: CALCIUM CARBONATE CHEW 500MG TAB PO SCH (09:31)
[2023-08-23 10:24] VITALS: TEMP 97.4
--- NOTE | 2023-08-23 11:56 | P.PN ---
Subjective Date of Service: 08/23/23 Chief Complaint: Respiratory failure Subjective: Improving (Patient is improving states that she is using her mask) Review of Systems Respiratory: Shortness of Breath Physical Examination - Vital Signs Temperature: 97.4 F Blood Pressure: 112/64 Pulse: 82 Respirations: 18 Pulse Ox (%): 94 - Physical Exam General: Alert, Oriented x3 Respiratory: Clear to auscultation bilaterally Cardiovascular: No edema, Regular rate/rhythm - Studies Medications List Reviewed: Yes Assessment And Plan - Current Problems (Diagnosis) (1) Respiratory failure with hypoxia and hypercapnia Current Visit: No Status: Acute Plan: Patient admitted with chronic respiratory failure with hypoxemia hypercapnia to change her machine to a noninvasive ventilator via med has been contacted continue with diuretics eluding Diamox monitor stops steroids patient is a diabetic use the Lasix to 40 mg daily. Of 80 to prevent metabolic alkalosis and associated hypoventilation within continue with spironolactone and Diamox twice a day Qualifiers: Chronicity: acute on chronic Qualified Code(s): J96.21 - Acute and chronic respiratory failure with hypoxia; J96.22 - Acute and chronic respiratory failure with hypercapnia Physician Review: Patient Assessed, Agree with Above Assessment and Plan
[2023-08-23 12:18] VITALS: O2SAT 92
--- NOTE | 2023-08-23 17:23 | P.CNS ---
Chief Complaint: Respiratory failure History of Present Illness: Date of Service: 08/19/23 Reason for admission: SOB History of Present Illness: 48 yo female with past medical history of diabetes, hypertension, asthma, CHF, COPD,GERD, hypertension, anemia , obesity hypoventilation syndrome, on BiPAP at home, brought to ER with shortness of breath. Patient is a senior living resident. Recently been admitted here with respiratory failure and was discharg ed. Patient started having worsening of symptoms 2 days ago and has been progressively worsening. Her pulse ox was reported as 72 associated with cough and was sent over here for further management. Denies any fever or chills. Patient is a poor historian hence most of the history is obtained from the chart review and also talking to the ER physician as she is on BiPAP Patient was seen and examined in ER and the work-up was consistent with possible pulmonary edema/pneumonia associated with hypoxic hypercapnic respiratory failure and was placed on BiPAP and was admitted for further management Allergies adhesive tape Adverse Reaction (Intermediate, Verified 03/26/22 06:12) Nausea/Vomiting codeine Adverse Reaction (Intermediate, Verified 03/26/22 06:12) Nausea/Vomiting Home Medications: Aspirin [Aspirin EC 81 MG] 81 mg PO DAILY 03/26/22 Atorvastatin Calcium 40 mg PO BEDTIME 03/26/22 Benztropine Mesylate 1 mg PO Q12H 03/26/22 Docusate [Colace Cap*] 100 mg PO BID 03/26/22 Ergocalciferol (Vitamin D2) [Vitamin D2] 50,000 unit PO Q7D 03/26/22 Fexofenadine HCl [Jeri Allergy] 180 mg PO DAILY 03/26/22 Folic Acid 0.4 mg PO DAILY 03/26/22 Gabapentin 300 mg PO TID 03/26/22 Metformin HCl [Glucophage*] 500 mg PO BID 03/26/22 Calcium Carbonate [Tums Regular*] 750 mg PO BID 03/15/23 Sertraline [Zoloft*] 100 mg PO DAILY 03/15/23 Albuterol Neb [Proventil 0.083% Neb Soln] 2.5 mg NEB [id number] amp 03/18/23 Insulin -Regular Human [Novolin -R*] See Protocol SQ ACHS ml 03/18/23 Insulin Glargine,Hum.rec.anlog [Insulin Glargine] 44 units SQ BEDTIME 08/15/23 Lidocaine 4% Patch [Lidoderm 5% Patch*] 1 patch TD DAILY 08/15/23 Potassium Chloride [K-Tab ER] 20 meq PO DAILY 08/15/23 Arformoterol Tartrate [Brovana] 15 mcg NEB BIDRESP vial.neb 08/16/23 Spironolactone [Aldactone*] 25 mg PO BID tab 08/16/23 acetaZOLAMIDE [Diamox*] 250 mg PO BID #60 tab 08/16/23 Ammonium Lactate 1 appl TOP BID 08/19/23 Aripiprazole [Abilify] 1 tab PO DAILY 08/19/23 Furosemide [Lasix*] 40 mg PO DAILY tab 08/23/23 - Past Medical/Surgical History Diabetic: Yes -: COPD -: DMII -: morbid obesity -: Asthma -: laporoscopic tubal ligation Psychosocial/ Personal History: Patient is resident of senior living - Family History Father Medical History: Heart disease, Diabetes Mother Medical History: Heart disease, Diabetes - Social History Alcohol use: No CD- Drugs: No Caffeine use: Yes Physical Examination Temp Pulse Resp BP Pulse Ox 97.4 F 82 18 112/64 94 08/23/23 12:01 08/23/23 12:01 08/23/23 12:01 08/23/23 12:01 08/23/23 12:01 - Problems (1) Acute exacerbation of CHF (congestive heart failure) Status: Acute (2) Pulmonary edema Status: Acute (3) Respiratory distress Status: Acute (4) Diabetes Status: Chronic (5) Hypertension Status: Chronic (6) Obesity hypoventilation syndrome Status: Chronic (7) Respiratory failure with hypoxia and hypercapnia Status: Acute Qualifiers: Chronicity: acute on chronic Qualified Code(s): J96.21 - Acute and chronic respiratory failure with hypoxia; J96.22 - Acute and chronic respiratory failure with hypercapnia
== END 2023-08-23 13:13 | DRG 189 ==
LOC: ER 20:14 → 2ND 22:36
PROVIDERS: ADMIT Family Medicine; ATTEND Internal Medicine Nephrology
PROC: 5A09557 Assistance with Respiratory Ventilation, Greater than 96 Consecutive Hours, Continuous Positive Airway Pressure (ICD-10-PCS; principal; 2023-08-18)
DX: J96.21 Acute and chronic respiratory failure with hypoxia (principal); J18.9 Pneumonia, unspecified organism; E66.2 Morbid (severe) obesity with alveolar hypoventilation; Z68.45 Body mass index [BMI] 70 or greater, adult; J44.0 Chronic obstructive pulmonary disease with (acute) lower respiratory infection; J96.22 Acute and chronic respiratory failure with hypercapnia; I11.0 Hypertensive heart disease with heart failure; I50.9 Heart failure, unspecified; E11.9 Type 2 diabetes mellitus without complications; K21.9 Gastro-esophageal reflux disease without esophagitis; Z88.5 Allergy status to narcotic agent; Z88.1 Allergy status to other antibiotic agents; Z88.8 Allergy status to other drugs, medicaments and biological substances; Z79.4 Long term (current) use of insulin; Z99.89 Dependence on other enabling machines and devices; Z98.51 Tubal ligation status; Z79.82 Long term (current) use of aspirin; Z79.84 Long term (current) use of oral hypoglycemic drugs; Z79.52 Long term (current) use of systemic steroids; Z79.899 Other long term (current) drug therapy; Z91.048 Other nonmedicinal substance allergy status
CPT/HCPCS: 36415; 71045; 80048; 80053; 80076; 81001; 82805; 82947; 83605; 83735; 83880; 84484; 85025; 87040; 93005; 93306; 94640; 94660; 94760; 96365; 96375; 99285; J0696; J1815; J1940; J2001; J7050; J7605; J7613; J7644

== ENCOUNTER 2024-01-24 11:20 | Inpatient (IN) | payer OTHER ==
--- OUTSIDE RECORDS SUMMARY | 2024-01-24 11:29 | XMS REPORT | Continuity of Care Document ---
Author Name Unknown Address [address] [place] [address] [address] [id number] [facility] Address [address] [facility] [address] [place] [address] Care Team Providers Care Head Of Marketing Adometry Name Role Phone [email or web address] Attending Clinician Unavailable KNOW, DOES_NOT Attending Clinician Unavailable UNKNOWN Attending Clinician Unavailable Jojo Villalpando Attending Clinician [phone] Dennis Talley Attending Clinician [phone] [email or web address]_Grant Attending Clinician Unavailab PILAR Samuel Attending Clinician Unavailable DO ELENA DOUGLAS Attending Clinician Unavailable DR VELMA COREY Attending Clinician Unavailab mike GRESHAM, DR DUMONT Attending Clinician UnaJUSTO Evans Attending Clinician Unavailable GC_BAHC_Todd_J Admitting Clinician Unavailable GC_BAHC_[email or web address]_G Admitting Clinician Unavailab PILAR Samuel Admitting Clinician Unavailable DO ELENA DOUGLAS Admitting Clinician Unavailable DR VELMA COREY Admitting Clinician Unavailab mike GRESHAM, DR DUMONT Admitting Clinician UnaJUSTO Evans Admitting Clinician Unavailable LAUREN PRESTON Admitting Clinician Unavailab le Payers Payer Name Policy Type Policy Number Effective Date Expirati on Date Source [facility] [place] [id number] 2023 00:00:00 [facility] [place] [id number] [place] [id number] Problems Condition Name Condition Details Condition Category Status Onset Date Resolution Date Last Treatment Date Treating Clinician Comments Source Upper respirator y infection Upper Respirator y Infection Problem Active 12-27 00:00: 00 [facility] Respirator y tract infection Respirator y Tract Infection Problem Active 2024-0 3-14 00:00: 00 [facility] Productive cough Productive Cough Problem Active 0 3-14 00:00: 00 [facility] Open wound of lower limb Open Wound of Lower Limb Problem Active 0 3-14 00:00: 00 [facility] Abrasion of skin of left ankle region Abrasion of Skin of Left Ankle Region Problem Active 0 3-14 00:00: 00 [facility] Headache Headache Problem Active 0 2-27 00:00: 00 [facility] Cough Cough Problem Active 0 2-23 00:00: 00 [facility] Abnormal weight loss Abnormal Weight Loss Problem Active 0 1-28 00:00: 00 [facility] Stasis dermatitis of lower limb due to chronic peripheral venous hypertensi on Stasis Dermatitis of Lower Limb Due to Chronic Peripheral Venous Hypertensi on Problem Active 0 9-19 00:00: 00 [facility] Constipati on Constipati on Problem Active 7-21 00:00: 00 [facility] Chronic hypercapni c respirator y failure Chronic Hypercapni c Respirator y Failure Problem Active 0 7-06 00:00: 00 [facility] Gastroesop hageal reflux disease Gastroesop hageal Reflux Disease Problem Active 0 6-14 00:00: 00 [facility] Metabolic encephalop athy Metabolic Encephalop athy Problem Active 0 6-13 00:00: 00 [facility] 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 Lipodermat osclerosis of Lower Limb Due to Varicose Veins of Lower Limb Problem Active 0 6-13 00:00: 00 [facility] Renal disorder due to type 2 diabetes mellitus Renal Disorder Due to Type 2 Diabetes Mellitus Problem Active 0 6-07 00:00: 00 [facility] Lymphedema of lower extremity Lymphedema of Lower Extremity Problem Active 0 6-07 00:00: 00 [facility] Extreme obesity with alveolar hypoventil ation Extreme Obesity with Alveolar Hypoventil ation Problem Active 0 1-25 00:00: 00 [facility] Unable to walk Unable to Walk Problem Active 0 1-25 00:00: 00 [facility] Type 2 diabetes mellitus with peripheral angiopathy Type 2 Diabetes Mellitus with Peripheral Angiopathy Problem Active 1-25 00:00: 00 [facility] 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 Problem Active 2021-10 1-04 00:00: 00 [facility] Lives in fpc Lives in Halfway Problem Active 9-26 00:00: 00 [facility] Need for personal care assistance Need for Personal Care Assistance Problem Active 9-26 00:00: 00 [facility] Long-term current use of insulin Long-term Current Use of Insulin Problem Active 8- 00:00: 00 [facility] Obstructiv e sleep apnea of adult Obstructiv e Sleep Apnea of Adult Problem Active 7-18 00:00: 00 [facility] Chronic obstructiv e lung disease Chronic Obstructiv e Lung Disease Problem Active 6-26 00:00: 00 [facility] Moderate protein-ca jose francisco malnutriti on (weight for age 60-74 percent of standard) Moderate Protein-ca jose francisco Malnutriti on (Weight for Age 60-74 Percent of Standard) Problem Active 6-05 00:00: 00 [facility] Folic acid deficiency Folic Acid Deficiency Problem Active 6-05 00:00: 00 [facility] Vitamin D deficiency Vitamin D Deficiency Problem Active 6-05 00:00: 00 [facility] Peripheral angiopathy due to diabetes mellitus Peripheral Angiopathy Due to Diabetes Mellitus Problem Active 6-04 00:00: 00 [facility] Anemia of chronic disease Anemia of Chronic Disease Problem Active 5-11 00:00: 00 [facility] Secondary hyperaldos teronism Secondary Hyperaldos teronism Problem Active 4-20 00:00: 00 [facility] Body mass index 40+ - severely obese Body Mass Index 40+ - Severely Obese Problem Active 4-12 00:00: 00 [facility] Type 2 diabetes mellitus Type 2 Diabetes Mellitus Problem Active 4-11 00:00: 00 [facility] Hyperlipid emia Hyperlipid emia Problem Active 4-11 00:00: 00 [facility] Bipolar disorder Bipolar Disorder Problem Active 4-11 00:00: 00 [facility] Hypertensi ve heart disease with congestive heart failure Hypertensi ve Heart Disease with Congestive Heart Failure Problem Active 01-24 00:00: 00 [facility] Bed-ridden Bed-ridden Problem Active 01-24 00:00: 00 [facility] Hypercapni a Hypercapni a Problem Active 01-25 00:00: [address] [facility] ([facility]F/[facility]/SA) Acute respirator y failure with hypoxia Acute respirator y failure with hypoxia Problem Active 01-25 00:00: [address] [facility] (LUF/LI V/SA) Venous stasis ulceration Venous stasis ulceration Problem Active 11-26 00:00: [address] [facility] (LUF/LI V/SA) Cellulitis Cellulitis Problem Active 2016-10 00:00: [address] [facility] (LUF/LI V/SA) Hypertensi ve disorder Hypertensi ve disorder Problem Active [facility] Venous varices Venous varices Problem Active [facility] (LUF/LI V/SA) Deep venous thrombosis of lower extremity (disorder) Deep venous thrombosis of lower extremity (disorder) Problem Active [facility] (LUF/LI V/SA) Ligation of fallopian tube Ligation of fallopian tube Problem Active [facility] V/SA) Cholecyste ctomy Cholecyste ctomy Problem Active [facility] ([facility] V/SA) Diabetic peripheral neuropathy Diabetic Peripheral Neuropathy Problem Active [facility] Secondary immune deficiency disorder Secondary Immune Deficiency Disorder Problem Active [facility] Hypercoagu lability state Hypercoagu lability State Problem Active [facility] Allergic rhinitis Allergic Rhinitis Problem Active [facility] Double incontinen ce Double Incontinen ce Problem Active [facility] Allergies, Adverse Reactions, Alerts Allergy Name Allergy Type Status Severity Reaction(s) Onset Date Inactive Date Treating Clinician Comments Source Codeine DA Active Unknown [facility] (LUF/LI V/SA) adhesive tape DA Active Unknown [facility] (LUF/LI V/SA) Cephalex in DA Active Unknown [facility] (LUF/LI V/SA) Tylenol DA [facility] ADHESIVE TAPE Allergy to substanc e Active [facility] Cephalex in Allergy to substanc e Active [facility] Codeine Allergy to substanc e Active [facility] Tylenol Allergy to substanc e Active [facility] Social History Smoking Status Start Date Stop Date Source Former Smoker [facility] Never smoker [facility] (LUF/[place]/SA) Medications Ordered Medication Name Filled Medication Name Start Date Stop Date Current Medication? Ordering Clinician Indication Dosage Frequency Signature (SIG) Comments Components Source aripiprazol e 5 mg tablet Take 1 tablet by oral route for 30 days. aripiprazol e 5 mg tablet Take 1 tablet by oral route for 30 days. 12-21 00:00: 00 No 1 aripiprazo le 5 mg tablet Take 1 tablet by oral route for 30 days. [facility] aripiprazol e 5 mg tablet Take 1 tablet by oral route for 30 days. aripiprazol e 5 mg tablet Take 1 tablet by oral route for 30 days. 12-21 00:00: 00 No 1 aripiprazo le 5 mg tablet Take 1 tablet by oral route for 30 days. [facility] Jeri Allergy 180 mg tablet Take 1 tablet every day by oral route. Jeri Allergy 180 mg tablet Take 1 tablet every day by oral route. No 1 Q1D Jeri Allergy 180 mg tablet Take 1 tablet every day by oral route. [facility] aripiprazol e 10 mg tablet Take 1 tablet every day by oral route at bedtime for 30 days. aripiprazol e 10 mg tablet Take 1 tablet every day by oral route at bedtime for 30 days. No aripiprazo le 10 mg tablet Take 1 tablet every day by oral route at bedtime for 30 days. [facility] aspirin 81 mg tablet,kit yed release Take 1 tablet every day by oral route. aspirin 81 mg tablet,kit yed release Take 1 tablet every day by oral route. No 1 Q1D aspirin 81 mg tablet,del ayed release Take 1 tablet every day by oral route. [facility] atorvastati n 40 mg tablet Take 1 tablet every day by oral route at bedtime for 30 days. atorvastati n 40 mg tablet Take 1 tablet every day by oral route at bedtime for 30 days. No atorvastat in 40 mg tablet Take 1 tablet every day by oral route at bedtime for 30 days. [facility] benztropine 1 mg tablet Take 1 mg every day by oral route at bedtime for 30 days. benztropine 1 mg tablet Take 1 mg every day by oral route at bedtime for 30 days. No benztropin e 1 mg tablet Take 1 mg every day by oral route at bedtime for 30 days. [facility] budesonide- formoterol HFA 160 mcg-4.5 mcg/actuati on aerosol inhaler Inhale 2 puffs twice a day by inhalation route. budesonide- formoterol HFA 160 mcg-4.5 mcg/actuati on aerosol inhaler Inhale 2 puffs twice a day by inhalation route. No budesonide -formotero l HFA 160 mcg-4.5 mcg/actuat ion aerosol inhaler Inhale 2 puffs twice a day by inhalation route. [facility] Colace 100 mg capsule Take 1 capsule every day by oral route. Colace 100 mg capsule Take 1 capsule every day by oral route. No 1capsul e(s) Q1D Colace 100 mg capsule Take 1 capsule every day by oral route. [facility] doxycycline monohydrate 100 mg capsule doxycycline monohydrate 100 mg capsule No doxycyclin e monohydrat e 100 mg capsule [facility] ergocalcife rol (vitamin D2) 1,250 mcg (50,000 unit) capsule Take 1 capsule every week by oral route. ergocalcife rol (vitamin D2) 1,250 mcg (50,000 unit) capsule Take 1 capsule every week by oral route. No ergocalcif kristen (vitamin D2) 1,250 mcg (50,000 unit) capsule Take 1 capsule every week by oral route. [facility] ferrous sulfate 324 mg (65 mg iron) tablet,kit yed release Take 1 tablet every day by oral route. ferrous sulfate 324 mg (65 mg iron) tablet,kit yed release Take 1 tablet every day by oral route. No 1 Q1D ferrous sulfate 324 mg (65 mg iron) tablet,del ayed release Take 1 tablet every day by oral route. [facility] folic acid 400 mcg tablet Take 1 tablet every day by oral route. folic acid 400 mcg tablet Take 1 tablet every day by oral route. No 1 Q1D folic acid 400 mcg tablet Take 1 tablet every day by oral route. [facility] furosemide 80 mg tablet Take 1 tablet every day by oral route for 30 days. furosemide 80 mg tablet Take 1 tablet every day by oral route for 30 days. No furosemide 80 mg tablet Take 1 tablet every day by oral route for 30 days. [facility] gabapentin 300 mg capsule Take 1 capsule 3 times a day by oral route for 30 days. gabapentin 300 mg capsule Take 1 capsule 3 times a day by oral route for 30 days. No gabapentin 300 mg capsule Take 1 capsule 3 times a day by oral route for 30 days. [facility] ipratropium bromide 0.02 % solution for inhalation Inhale 2.5 mL every 6 hours by inhalation route. ipratropium bromide 0.02 % solution for inhalation Inhale 2.5 mL every 6 hours by inhalation route. No 2.5mL Q6H ipratropiu m bromide 0.02 % solution for inhalation Inhale 2.5 mL every 6 hours by inhalation route. [facility] lactulose 10 gram/15 mL oral solution lactulose 10 gram/15 mL oral solution No lactulose 10 gram/15 mL oral solution [facility] Lantus U-100 Insulin 100 unit/mL subcutaneou s solution Inject 39 units every day by subcutaneou s route. Lantus U-100 Insulin 100 unit/mL subcutaneou s solution Inject 39 units every day by subcutaneou s route. No Lantus U-100 Insulin 100 unit/mL subcutaneo us solution Inject 39 units every day by subcutaneo us route. [facility] lisinopril 5 mg tablet Take 1 tablet every day by oral route for 30 days. lisinopril 5 mg tablet Take 1 tablet every day by oral route for 30 days. No lisinopril 5 mg tablet Take 1 tablet every day by oral route for 30 days. [facility] metformin 500 mg tablet Take 1 tablet twice a day by oral route for 30 days. metformin 500 mg tablet Take 1 tablet twice a day by oral route for 30 days. No metformin 500 mg tablet Take 1 tablet twice a day by oral route for 30 days. [facility] Nystop 100,000 unit/gram topical powder Nystop 100,000 unit/gram topical powder No Nystop 100,000 unit/gram topical powder [facility] ProAir HFA 90 mcg/actuati on aerosol inhaler Inhale 2 puffs every 4 hours by inhalation route as needed. ProAir HFA 90 mcg/actuati on aerosol inhaler Inhale 2 puffs every 4 hours by inhalation route as needed. No 2puff(s ) Q4H ProAir HFA 90 mcg/actuat ion aerosol inhaler Inhale 2 puffs every 4 hours by inhalation route as needed. [facility] sertraline 100 mg tablet Take 1 tablet every day by oral route for 30 days. sertraline 100 mg tablet Take 1 tablet every day by oral route for 30 days. No sertraline 100 mg tablet Take 1 tablet every day by oral route for 30 days. [facility] spironolact one 25 mg tablet Take 1 tablet every day by oral route. spironolact one 25 mg tablet Take 1 tablet every day by oral route. No spironolac tone 25 mg tablet Take 1 tablet every day by oral route. [facility] Tums Extra Strength Smoothies 300 mg (750 mg) chewable tablet Take 1 tablet twice a day by oral route. Tums Extra Strength Smoothies 300 mg (750 mg) chewable tablet Take 1 tablet twice a day by oral route. No 1 BID Tums Extra Strength Smoothies 300 mg (750 mg) chewable tablet Take 1 tablet twice a day by oral route. [facility] zinc oxide topical ointment Apply to affected skin TID zinc oxide topical ointment Apply to affected skin TID No zinc oxide topical ointment Apply to affected skin TID [facility] Jeri Allergy 180 mg tablet Take 1 tablet every day by oral route. Jeri Allergy 180 mg tablet Take 1 tablet every day by oral route. No 1 Q1D Jeri Allergy 180 mg tablet Take 1 tablet every day by oral route. [facility] aripiprazol e 10 mg tablet Take 1 tablet every day by oral route at bedtime for 30 days. aripiprazol e 10 mg tablet Take 1 tablet every day by oral route at bedtime for 30 days. No aripiprazo le 10 mg tablet Take 1 tablet every day by oral route at bedtime for 30 days. [facility] aspirin 81 mg tablet,kit yed release Take 1 tablet every day by oral route. aspirin 81 mg tablet,kit yed release Take 1 tablet every day by oral route. No 1 Q1D aspirin 81 mg tablet,del ayed release Take 1 tablet every day by oral route. [facility] atorvastati n 40 mg tablet Take 1 tablet every day by oral route at bedtime for 30 days. atorvastati n 40 mg tablet Take 1 tablet every day by oral route at bedtime for 30 days. No atorvastat in 40 mg tablet Take 1 tablet every day by oral route at bedtime for 30 days. [facility] benztropine 1 mg tablet Take 1 mg every day by oral route at bedtime for 30 days. benztropine 1 mg tablet Take 1 mg every day by oral route at bedtime for 30 days. No benztropin e 1 mg tablet Take 1 mg every day by oral route at bedtime for 30 days. [facility] budesonide- formoterol HFA 160 mcg-4.5 mcg/actuati on aerosol inhaler Inhale 2 puffs twice a day by inhalation route. budesonide- formoterol HFA 160 mcg-4.5 mcg/actuati on aerosol inhaler Inhale 2 puffs twice a day by inhalation route. No budesonide -formotero l HFA 160 mcg-4.5 mcg/actuat ion aerosol inhaler Inhale 2 puffs twice a day by inhalation route. [facility] Colace 100 mg capsule Take 1 capsule every day by oral route. Colace 100 mg capsule Take 1 capsule every day by oral route. No 1capsul e(s) Q1D Colace 100 mg capsule Take 1 capsule every day by oral route. [facility] ergocalcife rol (vitamin D2) 1,250 mcg (50,000 unit) capsule Take 1 capsule every week by oral route. ergocalcife rol (vitamin D2) 1,250 mcg (50,000 unit) capsule Take 1 capsule every week by oral route. No ergocalcif kristen (vitamin D2) 1,250 mcg (50,000 unit) capsule Take 1 capsule every week by oral route. [facility] ferrous sulfate 324 mg (65 mg iron) tablet,kit yed release Take 1 tablet every day by oral route. ferrous sulfate 324 mg (65 mg iron) tablet,kit yed release Take 1 tablet every day by oral route. No 1 Q1D ferrous sulfate 324 mg (65 mg iron) tablet,del ayed release Take 1 tablet every day by oral route. [facility] folic acid 400 mcg tablet Take 1 tablet every day by oral route. folic acid 400 mcg tablet Take 1 tablet every day by oral route. No 1 Q1D folic acid 400 mcg tablet Take 1 tablet every day by oral route. [facility] furosemide 80 mg tablet Take 1 tablet every day by oral route for 30 days. furosemide 80 mg tablet Take 1 tablet every day by oral route for 30 days. No furosemide 80 mg tablet Take 1 tablet every day by oral route for 30 days. [facility] gabapentin 300 mg capsule Take 1 capsule 3 times a day by oral route for 30 days. gabapentin 300 mg capsule Take 1 capsule 3 times a day by oral route for 30 days. No gabapentin 300 mg capsule Take 1 capsule 3 times a day by oral route for 30 days. [facility] ipratropium bromide 0.02 % solution for inhalation Inhale 2.5 mL every 6 hours by inhalation route. ipratropium bromide 0.02 % solution for inhalation Inhale 2.5 mL every 6 hours by inhalation route. No 2.5mL Q6H ipratropiu m bromide 0.02 % solution for inhalation Inhale 2.5 mL every 6 hours by inhalation route. [facility] lactulose 10 gram/15 mL oral solution lactulose 10 gram/15 mL oral solution No lactulose 10 gram/15 mL oral solution [facility] Lantus U-100 Insulin 100 unit/mL subcutaneou s solution Inject 39 units every day by subcutaneou s route. Lantus U-100 Insulin 100 unit/mL subcutaneou s solution Inject 39 units every day by subcutaneou s route. No Lantus U-100 Insulin 100 unit/mL subcutaneo us solution Inject 39 units every day by subcutaneo us route. [facility] lisinopril 5 mg tablet Take 1 tablet every day by oral route for 30 days. lisinopril 5 mg tablet Take 1 tablet every day by oral route for 30 days. No lisinopril 5 mg tablet Take 1 tablet every day by oral route for 30 days. [facility] metformin 500 mg tablet Take 1 tablet twice a day by oral route for 30 days. metformin 500 mg tablet Take 1 tablet twice a day by oral route for 30 days. No metformin 500 mg tablet Take 1 tablet twice a day by oral route for 30 days. [facility] Nystop 100,000 unit/gram topical powder Nystop 100,000 unit/gram topical powder No Nystop 100,000 unit/gram topical powder [facility] ProAir HFA 90 mcg/actuati on aerosol inhaler Inhale 2 puffs every 4 hours by inhalation route as needed. ProAir HFA 90 mcg/actuati on aerosol inhaler Inhale 2 puffs every 4 hours by inhalation route as needed. No 2puff(s ) Q4H ProAir HFA 90 mcg/actuat ion aerosol inhaler Inhale 2 puffs every 4 hours by inhalation route as needed. [facility] sertraline 100 mg tablet Take 1 tablet every day by oral route for 30 days. sertraline 100 mg tablet Take 1 tablet every day by oral route for 30 days. No sertraline 100 mg tablet Take 1 tablet every day by oral route for 30 days. [facility] spironolact one 25 mg tablet Take 1 tablet every day by oral route. spironolact one 25 mg tablet Take 1 tablet every day by oral route. No spironolac tone 25 mg tablet Take 1 tablet every day by oral route. [facility] Tums Extra Strength Smoothies 300 mg (750 mg) chewable tablet Take 1 tablet twice a day by oral route. Tums Extra Strength Smoothies 300 mg (750 mg) chewable tablet Take 1 tablet twice a day by oral route. No 1 BID Tums Extra Strength Smoothies 300 mg (750 mg) chewable tablet Take 1 tablet twice a day by oral route. [facility] zinc oxide topical ointment Apply to affected skin TID zinc oxide topical ointment Apply to affected skin TID No zinc oxide topical ointment Apply to affected skin TID [facility] Jeri Allergy 180 mg tablet Take 1 tablet every day by oral route. Jeri Allergy 180 mg tablet Take 1 tablet every day by oral route. No 1 Q1D Jeri Allergy 180 mg tablet Take 1 tablet every day by oral route. [facility] aripiprazol e 10 mg tablet Take 1 tablet every day by oral route at bedtime for 30 days. aripiprazol e 10 mg tablet Take 1 tablet every day by oral route at bedtime for 30 days. No aripiprazo le 10 mg tablet Take 1 tablet every day by oral route at bedtime for 30 days. [facility] aspirin 81 mg tablet,kit yed release Take 1 tablet every day by oral route. aspirin 81 mg tablet,kit yed release Take 1 tablet every day by oral route. No 1 Q1D aspirin 81 mg tablet,del ayed release Take 1 tablet every day by oral route. [facility] atorvastati n 40 mg tablet Take 1 tablet every day by oral route at bedtime for 30 days. atorvastati n 40 mg tablet Take 1 tablet every day by oral route at bedtime for 30 days. No atorvastat in 40 mg tablet Take 1 tablet every day by oral route at bedtime for 30 days. [facility] benztropine 1 mg tablet Take 1 mg every day by oral route at bedtime for 30 days. benztropine 1 mg tablet Take 1 mg every day by oral route at bedtime for 30 days. No benztropin e 1 mg tablet Take 1 mg every day by oral route at bedtime for 30 days. [facility] budesonide- formoterol HFA 160 mcg-4.5 mcg/actuati on aerosol inhaler Inhale 2 puffs twice a day by inhalation route. budesonide- formoterol HFA 160 mcg-4.5 mcg/actuati on aerosol inhaler Inhale 2 puffs twice a day by inhalation route. No budesonide -formotero l HFA 160 mcg-4.5 mcg/actuat ion aerosol inhaler Inhale 2 puffs twice a day by inhalation route. [facility] Colace 100 mg capsule Take 1 capsule every day by oral route. Colace 100 mg capsule Take 1 capsule every day by oral route. No 1capsul e(s) Q1D Colace 100 mg capsule Take 1 capsule every day by oral route. [facility] ergocalcife rol (vitamin D2) 1,250 mcg (50,000 unit) capsule Take 1 capsule every week by oral route. ergocalcife rol (vitamin D2) 1,250 mcg (50,000 unit) capsule Take 1 capsule every week by oral route. No ergocalcif kristen (vitamin D2) 1,250 mcg (50,000 unit) capsule Take 1 capsule every week by oral route. [facility] ferrous sulfate 324 mg (65 mg iron) tablet,kit yed release Take 1 tablet every day by oral route. ferrous sulfate 324 mg (65 mg iron) tablet,kit yed release Take 1 tablet every day by oral route. No 1 Q1D ferrous sulfate 324 mg (65 mg iron) tablet,del ayed release Take 1 tablet every day by oral route. [facility] folic acid 400 mcg tablet Take 1 tablet every day by oral route. folic acid 400 mcg tablet Take 1 tablet every day by oral route. No 1 Q1D folic acid 400 mcg tablet Take 1 tablet every day by oral route. [facility] furosemide 80 mg tablet Take 1 tablet every day by oral route for 30 days. furosemide 80 mg tablet Take 1 tablet every day by oral route for 30 days. No furosemide 80 mg tablet Take 1 tablet every day by oral route for 30 days. [facility] gabapentin 300 mg capsule Take 1 capsule 3 times a day by oral route for 30 days. gabapentin 300 mg capsule Take 1 capsule 3 times a day by oral route for 30 days. No gabapentin 300 mg capsule Take 1 capsule 3 times a day by oral route for 30 days. [facility] ipratropium bromide 0.02 % solution for inhalation Inhale 2.5 mL every 6 hours by inhalation route. ipratropium bromide 0.02 % solution for inhalation Inhale 2.5 mL every 6 hours by inhalation route. No 2.5mL Q6H ipratropiu m bromide 0.02 % solution for inhalation Inhale 2.5 mL every 6 hours by inhalation route. [facility] lactulose 10 gram/15 mL oral solution lactulose 10 gram/15 mL oral solution No lactulose 10 gram/15 mL oral solution [facility] Lantus U-100 Insulin 100 unit/mL subcutaneou s solution INJECT 39U UNDER THE SKIN EVERY DAY Lantus U-100 Insulin 100 unit/mL subcutaneou s solution INJECT 39U UNDER THE SKIN EVERY DAY No Lantus U-100 Insulin 100 unit/mL subcutaneo us solution INJECT 39U UNDER THE SKIN EVERY DAY [facility] lisinopril 5 mg tablet Take 1 tablet every day by oral route for 30 days. lisinopril 5 mg tablet Take 1 tablet every day by oral route for 30 days. No lisinopril 5 mg tablet Take 1 tablet every day by oral route for 30 days. [facility] metformin 500 mg tablet Take 1 tablet twice a day by oral route for 30 days. metformin 500 mg tablet Take 1 tablet twice a day by oral route for 30 days. No metformin 500 mg tablet Take 1 tablet twice a day by oral route for 30 days. [facility] Nystop 100,000 unit/gram topical powder Nystop 100,000 unit/gram topical powder No Nystop 100,000 unit/gram topical powder [facility] ProAir HFA 90 mcg/actuati on aerosol inhaler Inhale 2 puffs every 4 hours by inhalation route as needed. ProAir HFA 90 mcg/actuati on aerosol inhaler Inhale 2 puffs every 4 hours by inhalation route as needed. No 2puff(s ) Q4H ProAir HFA 90 mcg/actuat ion aerosol inhaler Inhale 2 puffs every 4 hours by inhalation route as needed. [facility] Albuterol HFA Inhaler 90 mcg/actuati on Albuterol HFA Inhaler 90 mcg/actuati on Yes 1 4xD inhaled every 6 hours as needed. (as needed for shortness of breath or wheezing) [facility] sertraline 100 mg tablet Take 1 tablet every day by oral route for 30 days. sertraline 100 mg tablet Take 1 tablet every day by oral route for 30 days. No sertraline 100 mg tablet Take 1 tablet every day by oral route for 30 days. [facility] spironolact one 25 mg tablet Take 1 tablet every day by oral route. spironolact one 25 mg tablet Take 1 tablet every day by oral route. No spironolac tone 25 mg tablet Take 1 tablet every day by oral route. [facility] Tums Extra Strength Smoothies 300 mg (750 mg) chewable tablet Take 1 tablet twice a day by oral route. Tums Extra Strength Smoothies 300 mg (750 mg) chewable tablet Take 1 tablet twice a day by oral route. No 1 BID Tums Extra Strength Smoothies 300 mg (750 mg) chewable tablet Take 1 tablet twice a day by oral route. [facility] zinc oxide topical ointment Apply to affected skin TID zinc oxide topical ointment Apply to affected skin TID No zinc oxide topical ointment Apply to affected skin TID [facility] Jeri Allergy 180 mg tablet Take 1 tablet every day by oral route. [facility] Allergy 180 mg tablet Take 1 tablet every day by oral route. No 1 Q1D [facility] Allergy 180 mg tablet Take 1 tablet every day by oral route. [facility] aripiprazol e 10 mg tablet Take 1 tablet every day by oral route at bedtime for 30 days. aripiprazol e 10 mg tablet Take 1 tablet every day by oral route at bedtime for 30 days. No aripiprazo le 10 mg tablet Take 1 tablet every day by oral route at bedtime for 30 days. [facility] aspirin 81 mg tablet,kit yed release Take 1 tablet every day by oral route. aspirin 81 mg tablet,kit yed release Take 1 tablet every day by oral route. No 1 Q1D aspirin 81 mg tablet,del ayed release Take 1 tablet every day by oral route. [facility] atorvastati n 40 mg tablet Take 1 tablet every day by oral route at bedtime for 30 days. atorvastati n 40 mg tablet Take 1 tablet every day by oral route at bedtime for 30 days. No atorvastat in 40 mg tablet Take 1 tablet every day by oral route at bedtime for 30 days. [facility] benztropine 1 mg tablet Take 1 mg every day by oral route at bedtime for 30 days. benztropine 1 mg tablet Take 1 mg every day by oral route at bedtime for 30 days. No benztropin e 1 mg tablet Take 1 mg every day by oral route at bedtime for 30 days. [facility] budesonide- formoterol HFA 160 mcg-4.5 mcg/actuati on aerosol inhaler Inhale 2 puffs twice a day by inhalation route. budesonide- formoterol HFA 160 mcg-4.5 mcg/actuati on aerosol inhaler Inhale 2 puffs twice a day by inhalation route. No budesonide -formotero l HFA 160 mcg-4.5 mcg/actuat ion aerosol inhaler Inhale 2 puffs twice a day by inhalation route. [facility] aripiprazol e 10 MG Oral Tablet aripiprazol e 10 MG Oral Tablet Yes 10mg 1xD orally daily [facility] (LUF/LI V/SA) Colace 100 mg capsule Take 1 capsule every day by oral route. Colace 100 mg capsule Take 1 capsule every day by oral route. No 1capsul e(s) Q1D Colace 100 mg capsule Take 1 capsule every day by oral route. [facility] ergocalcife rol (vitamin D2) 1,250 mcg (50,000 unit) capsule Take 1 capsule every week by oral route. ergocalcife rol (vitamin D2) 1,250 mcg (50,000 unit) capsule Take 1 capsule every week by oral route. No ergocalcif rkisten (vitamin D2) 1,250 mcg (50,000 unit) capsule Take 1 capsule every week by oral route. [facility] ferrous sulfate 324 mg (65 mg iron) tablet,kit yed release Take 1 tablet every day by oral route. ferrous sulfate 324 mg (65 mg iron) tablet,kit yed release Take 1 tablet every day by oral route. No 1 Q1D ferrous sulfate 324 mg (65 mg iron) tablet,del ayed release Take 1 tablet every day by oral route. [facility] folic acid 400 mcg tablet Take 1 tablet every day by oral route. folic acid 400 mcg tablet Take 1 tablet every day by oral route. No 1 Q1D folic acid 400 mcg tablet Take 1 tablet every day by oral route. [facility] furosemide 80 mg tablet Take 1 tablet every day by oral route for 30 days. furosemide 80 mg tablet Take 1 tablet every day by oral route for 30 days. No furosemide 80 mg tablet Take 1 tablet every day by oral route for 30 days. [facility] gabapentin 300 mg capsule Take 1 capsule 3 times a day by oral route for 30 days. gabapentin 300 mg capsule Take 1 capsule 3 times a day by oral route for 30 days. No gabapentin 300 mg capsule Take 1 capsule 3 times a day by oral route for 30 days. [facility] ipratropium bromide 0.02 % solution for inhalation Inhale 2.5 mL every 6 hours by inhalation route. ipratropium bromide 0.02 % solution for inhalation Inhale 2.5 mL every 6 hours by inhalation route. No 2.5mL Q6H ipratropiu m bromide 0.02 % solution for inhalation Inhale 2.5 mL every 6 hours by inhalation route. [facility] lactulose 10 gram/15 mL oral solution lactulose 10 gram/15 mL oral solution No lactulose 10 gram/15 mL oral solution [facility] Lantus U-100 Insulin 100 unit/mL subcutaneou s solution INJECT 39U UNDER THE SKIN EVERY DAY Lantus U-100 Insulin 100 unit/mL subcutaneou s solution INJECT 39U UNDER THE SKIN EVERY DAY No Lantus U-100 Insulin 100 unit/mL subcutaneo us solution INJECT 39U UNDER THE SKIN EVERY DAY [facility] lisinopril 5 mg tablet Take 1 tablet every day by oral route for 30 days. lisinopril 5 mg tablet Take 1 tablet every day by oral route for 30 days. No lisinopril 5 mg tablet Take 1 tablet every day by oral route for 30 days. [facility] Aspirin Aspirin Yes 81mg 1xD orally daily [facility] ([facility]/SA) metformin 500 mg tablet Take 1 tablet twice a day by oral route for 30 days. metformin 500 mg tablet Take 1 tablet twice a day by oral route for 30 days. No metformin 500 mg tablet Take 1 tablet twice a day by oral route for 30 days. [facility] Nystop 100,000 unit/gram topical powder Nystop 100,000 unit/gram topical powder No Nystop 100,000 unit/gram topical powder [facility] ProAir HFA 90 mcg/actuati on aerosol inhaler Inhale 2 puffs every 4 hours by inhalation route as needed. ProAir HFA 90 mcg/actuati on aerosol inhaler Inhale 2 puffs every 4 hours by inhalation route as needed. No 2puff(s ) Q4H ProAir HFA 90 mcg/actuat ion aerosol inhaler Inhale 2 puffs every 4 hours by inhalation route as needed. [facility] sertraline 100 mg tablet Take 1 tablet every day by oral route for 30 days. sertraline 100 mg tablet Take 1 tablet every day by oral route for 30 days. No sertraline 100 mg tablet Take 1 tablet every day by oral route for 30 days. [facility] spironolact one 25 mg tablet Take 1 tablet every day by oral route. spironolact one 25 mg tablet Take 1 tablet every day by oral route. No spironolac tone 25 mg tablet Take 1 tablet every day by oral route. [facility] Tums Extra Strength Smoothies 300 mg (750 mg) chewable tablet Take 1 tablet twice a day by oral route. Tums Extra Strength Smoothies 300 mg (750 mg) chewable tablet Take 1 tablet twice a day by oral route. No 1 BID Tums Extra Strength Smoothies 300 mg (750 mg) chewable tablet Take 1 tablet twice a day by oral route. [facility] zinc oxide topical ointment Apply to affected skin TID zinc oxide topical ointment Apply to affected skin TID No zinc oxide topical ointment Apply to affected skin TID [facility] Jeri Allergy 180 mg tablet Take 1 tablet every day by oral route. [facility] All[facility] 180 mg tablet Take 1 tablet every day by oral route. No 1 Q1D Jeri Allergy 180 mg tablet Take 1 tablet every day by oral route. [facility] aripiprazol e 10 mg tablet Take 1 tablet every day by oral route at bedtime for 30 days. aripiprazol e 10 mg tablet Take 1 tablet every day by oral route at bedtime for 30 days. No aripiprazo le 10 mg tablet Take 1 tablet every day by oral route at bedtime for 30 days. [facility] aspirin 81 mg tablet,kit yed release Take 1 tablet every day by oral route. aspirin 81 mg tablet,kit yed release Take 1 tablet every day by oral route. No 1 Q1D aspirin 81 mg tablet,del ayed release Take 1 tablet every day by oral route. [facility] atorvastati n 40 MG Oral Tablet atorvastati n 40 MG Oral Tablet Yes 40mg 1xD orally daily [facility] (LU/LI V/SA) atorvastati n 40 mg tablet Take 1 tablet every day by oral route at bedtime for 30 days. atorvastati n 40 mg tablet Take 1 tablet every day by oral route at bedtime for 30 days. No atorvastat in 40 mg tablet Take 1 tablet every day by oral route at bedtime for 30 days. [facility] benztropine 1 mg tablet Take 1 mg every day by oral route at bedtime for 30 days. benztropine 1 mg tablet Take 1 mg every day by oral route at bedtime for 30 days. No benztropin e 1 mg tablet Take 1 mg every day by oral route at bedtime for 30 days. [facility] budesonide- formoterol HFA 160 mcg-4.5 mcg/actuati on aerosol inhaler Inhale 2 puffs twice a day by inhalation route. budesonide- formoterol HFA 160 mcg-4.5 mcg/actuati on aerosol inhaler Inhale 2 puffs twice a day by inhalation route. No budesonide -formotero l HFA 160 mcg-4.5 mcg/actuat ion aerosol inhaler Inhale 2 puffs twice a day by inhalation route. [facility] Colace 100 mg capsule Take 1 capsule every day by oral route. Colace 100 mg capsule Take 1 capsule every day by oral route. No 1capsul e(s) Q1D Colace 100 mg capsule Take 1 capsule every day by oral route. [facility] ergocalcife rol (vitamin D2) 1,250 mcg (50,000 unit) capsule Take 1 capsule every week by oral route. ergocalcife rol (vitamin D2) 1,250 mcg (50,000 unit) capsule Take 1 capsule every week by oral route. No ergocalcif kristen (vitamin D2) 1,250 mcg (50,000 unit) capsule Take 1 capsule every week by oral route. [facility] ferrous sulfate 324 mg (65 mg iron) tablet,kit yed release Take 1 tablet every day by oral route. ferrous sulfate 324 mg (65 mg iron) tablet,kit yed release Take 1 tablet every day by oral route. No 1 Q1D ferrous sulfate 324 mg (65 mg iron) tablet,del ayed release Take 1 tablet every day by oral route. [facility] folic acid 400 mcg tablet Take 1 tablet every day by oral route. folic acid 400 mcg tablet Take 1 tablet every day by oral route. No 1 Q1D folic acid 400 mcg tablet Take 1 tablet every day by oral route. [facility] furosemide 80 mg tablet Take 1 tablet every day by oral route for 30 days. furosemide 80 mg tablet Take 1 tablet every day by oral route for 30 days. No furosemide 80 mg tablet Take 1 tablet every day by oral route for 30 days. [facility] gabapentin 300 mg capsule Take 1 capsule 3 times a day by oral route for 30 days. gabapentin 300 mg capsule Take 1 capsule 3 times a day by oral route for 30 days. No gabapentin 300 mg capsule Take 1 capsule 3 times a day by oral route for 30 days. [facility] ipratropium bromide 0.02 % solution for inhalation Inhale 2.5 mL every 6 hours by inhalation route. ipratropium bromide 0.02 % solution for inhalation Inhale 2.5 mL every 6 hours by inhalation route. No 2.5mL Q6H ipratropiu m bromide 0.02 % solution for inhalation Inhale 2.5 mL every 6 hours by inhalation route. [facility] Budesonide Budesonide Yes 2 2xD inha led 2 times per day [facility] (LUF/LI V/SA) lactulose 10 gram/15 mL oral solution lactulose 10 gram/15 mL oral solution No lactulose 10 gram/15 mL oral solution [facility] Lantus U-100 Insulin 100 unit/mL subcutaneou s solution INJECT 39U UNDER THE SKIN EVERY DAY Lantus U-100 Insulin 100 unit/mL subcutaneou s solution INJECT 39U UNDER THE SKIN EVERY DAY No Lantus U-100 Insulin 100 unit/mL subcutaneo us solution INJECT 39U UNDER THE SKIN EVERY DAY [facility] lisinopril 5 mg tablet Take 1 tablet every day by oral route for 30 days. lisinopril 5 mg tablet Take 1 tablet every day by oral route for 30 days. No lisinopril 5 mg tablet Take 1 tablet every day by oral route for 30 days. [facility] metformin 500 mg tablet Take 1 tablet twice a day by oral route for 30 days. metformin 500 mg tablet Take 1 tablet twice a day by oral route for 30 days. No metformin 500 mg tablet Take 1 tablet twice a day by oral route for 30 days. [facility] Nystop 100,000 unit/gram topical powder Nystop 100,000 unit/gram topical powder No Nystop 100,000 unit/gram topical powder [facility] ProAir HFA 90 mcg/actuati on aerosol inhaler Inhale 2 puffs every 4 hours by inhalation route as needed. ProAir HFA 90 mcg/actuati on aerosol inhaler Inhale 2 puffs every 4 hours by inhalation route as needed. No 2puff(s ) Q4H ProAir HFA 90 mcg/actuat ion aerosol inhaler Inhale 2 puffs every 4 hours by inhalation route as needed. [facility] sertraline 100 mg tablet Take 1 tablet every day by oral route for 30 days. sertraline 100 mg tablet Take 1 tablet every day by oral route for 30 days. No sertraline 100 mg tablet Take 1 tablet every day by oral route for 30 days. [facility] spironolact one 25 mg tablet Take 1 tablet every day by oral route. spironolact one 25 mg tablet Take 1 tablet every day by oral route. No spironolac tone 25 mg tablet Take 1 tablet every day by oral route. [facility] Tums Extra Strength Smoothies 300 mg (750 mg) chewable tablet Take 1 tablet twice a day by oral route. Tums Extra Strength Smoothies 300 mg (750 mg) chewable tablet Take 1 tablet twice a day by oral route. No 1 BID Tums Extra Strength Smoothies 300 mg (750 mg) chewable tablet Take 1 tablet twice a day by oral route. [facility] zinc oxide topical ointment Apply to affected skin TID zinc oxide topical ointment Apply to affected skin TID No zinc oxide topical ointment Apply to affected skin TID [facility] Clindamycin 300 MG Oral Capsule Clindamycin 300 MG Oral Capsule Yes 300mg 4xD orally 4 times per day [facility] (LUF[facility]LI V/SA) Jeri Allergy 180 mg tablet Take 1 tablet every day by oral route. [facility] All[facility] 180 mg tablet Take 1 tablet every day by oral route. No 1 Q1D [facility] Allergy 180 mg tablet Take 1 tablet every day by oral route. [facility] aripiprazol e 10 mg tablet Take 1 tablet every day by oral route at bedtime for 30 days. aripiprazol e 10 mg tablet Take 1 tablet every day by oral route at bedtime for 30 days. No aripiprazo le 10 mg tablet Take 1 tablet every day by oral route at bedtime for 30 days. [facility] aspirin 81 mg tablet,kit yed release Take 1 tablet every day by oral route. aspirin 81 mg tablet,kit yed release Take 1 tablet every day by oral route. No 1 Q1D aspirin 81 mg tablet,del ayed release Take 1 tablet every day by oral route. [facility] atorvastati n 40 mg tablet Take 1 tablet every day by oral route at bedtime for 30 days. atorvastati n 40 mg tablet Take 1 tablet every day by oral route at bedtime for 30 days. No atorvastat in 40 mg tablet Take 1 tablet every day by oral route at bedtime for 30 days. [facility] benztropine 1 mg tablet Take 1 mg every day by oral route at bedtime for 30 days. benztropine 1 mg tablet Take 1 mg every day by oral route at bedtime for 30 days. No benztropin e 1 mg tablet Take 1 mg every day by oral route at bedtime for 30 days. [facility] budesonide- formoterol HFA 160 mcg-4.5 mcg/actuati on aerosol inhaler Inhale 2 puffs twice a day by inhalation route. budesonide- formoterol HFA 160 mcg-4.5 mcg/actuati on aerosol inhaler Inhale 2 puffs twice a day by inhalation route. No budesonide -formotero l HFA 160 mcg-4.5 mcg/actuat ion aerosol inhaler Inhale 2 puffs twice a day by inhalation route. [facility] Colace 100 mg capsule Take 1 capsule every day by oral route. Colace 100 mg capsule Take 1 capsule every day by oral route. No 1capsul e(s) Q1D Colace 100 mg capsule Take 1 capsule every day by oral route. [facility] ergocalcife rol (vitamin D2) 1,250 mcg (50,000 unit) capsule Take 1 capsule every week by oral route. ergocalcife rol (vitamin D2) 1,250 mcg (50,000 unit) capsule Take 1 capsule every week by oral route. No ergocalcif kristen (vitamin D2) 1,250 mcg (50,000 unit) capsule Take 1 capsule every week by oral route. [facility] ferrous sulfate 324 mg (65 mg iron) tablet,kit yed release Take 1 tablet every day by oral route. ferrous sulfate 324 mg (65 mg iron) tablet,kit yed release Take 1 tablet every day by oral route. No 1 Q1D ferrous sulfate 324 mg (65 mg iron) tablet,del ayed release Take 1 tablet every day by oral route. [facility] folic acid 400 mcg tablet Take 1 tablet every day by oral route. folic acid 400 mcg tablet Take 1 tablet every day by oral route. No 1 Q1D folic acid 400 mcg tablet Take 1 tablet every day by oral route. [facility] lasix lasix Yes 80 1xD orally daily [facility] (LUF/LI V/SA) furosemide 80 mg tablet Take 1 tablet every day by oral route for 30 days. furosemide 80 mg tablet Take 1 tablet every day by oral route for 30 days. No furosemide 80 mg tablet Take 1 tablet every day by oral route for 30 days. [facility] gabapentin 300 mg capsule Take 1 capsule 3 times a day by oral route for 30 days. gabapentin 300 mg capsule Take 1 capsule 3 times a day by oral route for 30 days. No gabapentin 300 mg capsule Take 1 capsule 3 times a day by oral route for 30 days. [facility] insulin glargine (U-100) 100 unit/mL subcutaneou s solution INJECT 39U UNDER THE SKIN EVERY DAY insulin glargine (U-100) 100 unit/mL subcutaneou s solution INJECT 39U UNDER THE SKIN EVERY DAY No insulin glargine (U-100) 100 unit/mL subcutaneo us solution INJECT 39U UNDER THE SKIN EVERY DAY [facility] ipratropium bromide 0.02 % solution for inhalation Inhale 2.5 mL every 6 hours by inhalation route. ipratropium bromide 0.02 % solution for inhalation Inhale 2.5 mL every 6 hours by inhalation route. No 2.5mL Q6H ipratropiu m bromide 0.02 % solution for inhalation Inhale 2.5 mL every 6 hours by inhalation route. [facility] lactulose 10 gram/15 mL oral solution lactulose 10 gram/15 mL oral solution No lactulose 10 gram/15 mL oral solution [facility] lisinopril 5 mg tablet Take 1 tablet every day by oral route for 30 days. lisinopril 5 mg tablet Take 1 tablet every day by oral route for 30 days. No lisinopril 5 mg tablet Take 1 tablet every day by oral route for 30 days. [facility] metformin 500 mg tablet Take 1 tablet twice a day by oral route for 30 days. metformin 500 mg tablet Take 1 tablet twice a day by oral route for 30 days. No metformin 500 mg tablet Take 1 tablet twice a day by oral route for 30 days. [facility] Nystop 100,000 unit/gram topical powder Nystop 100,000 unit/gram topical powder No Nystop 100,000 unit/gram topical powder [facility] ProAir HFA 90 mcg/actuati on aerosol inhaler Inhale 2 puffs every 4 hours by inhalation route as needed. ProAir HFA 90 mcg/actuati on aerosol inhaler Inhale 2 puffs every 4 hours by inhalation route as needed. No 2puff(s ) Q4H ProAir HFA 90 mcg/actuat ion aerosol inhaler Inhale 2 puffs every 4 hours by inhalation route as needed. [facility] sertraline 100 mg tablet Take 1 tablet every day by oral route for 30 days. sertraline 100 mg tablet Take 1 tablet every day by oral route for 30 days. No sertraline 100 mg tablet Take 1 tablet every day by oral route for 30 days. [facility] Lisinopril 5 MG Oral Tablet Lisinopril 5 MG Oral Tablet Yes 5mg 1xD orally daily [facility] (LUF/LI V/SA) spironolact one 25 mg tablet Take 1 tablet every day by oral route. spironolact one 25 mg tablet Take 1 tablet every day by oral route. No spironolac tone 25 mg tablet Take 1 tablet every day by oral route. [facility] Tums Extra Strength Smoothies 300 mg (750 mg) chewable tablet Take 1 tablet twice a day by oral route. Tums Extra Strength Smoothies 300 mg (750 mg) chewable tablet Take 1 tablet twice a day by oral route. No 1 BID Tums Extra Strength Smoothies 300 mg (750 mg) chewable tablet Take 1 tablet twice a day by oral route. [facility] zinc oxide topical ointment Apply to affected skin TID zinc oxide topical ointment Apply to affected skin TID No zinc oxide topical ointment Apply to affected skin TID [facility] Jeri Allergy 180 mg tablet Take 1 tablet every day by oral route. [facility] All[facility] 180 mg tablet Take 1 tablet every day by oral route. No 1 Q1D [facility] Allergy 180 mg tablet Take 1 tablet every day by oral route. [facility] aripiprazol e 10 mg tablet Take 1 tablet every day by oral route at bedtime for 30 days. aripiprazol e 10 mg tablet Take 1 tablet every day by oral route at bedtime for 30 days. No aripiprazo le 10 mg tablet Take 1 tablet every day by oral route at bedtime for 30 days. [facility] aspirin 81 mg tablet,kit yed release Take 1 tablet every day by oral route. aspirin 81 mg tablet,kit yed release Take 1 tablet every day by oral route. No 1 Q1D aspirin 81 mg tablet,del ayed release Take 1 tablet every day by oral route. [facility] atorvastati n 40 mg tablet Take 1 tablet every day by oral route at bedtime for 30 days. atorvastati n 40 mg tablet Take 1 tablet every day by oral route at bedtime for 30 days. No atorvastat in 40 mg tablet Take 1 tablet every day by oral route at bedtime for 30 days. [facility] benztropine 1 mg tablet Take 1 mg every day by oral route at bedtime for 30 days. benztropine 1 mg tablet Take 1 mg every day by oral route at bedtime for 30 days. No benztropin e 1 mg tablet Take 1 mg every day by oral route at bedtime for 30 days. [facility] budesonide- formoterol HFA 160 mcg-4.5 mcg/actuati on aerosol inhaler Inhale 2 puffs twice a day by inhalation route. budesonide- formoterol HFA 160 mcg-4.5 mcg/actuati on aerosol inhaler Inhale 2 puffs twice a day by inhalation route. No budesonide -formotero l HFA 160 mcg-4.5 mcg/actuat ion aerosol inhaler Inhale 2 puffs twice a day by inhalation route. [facility] Colace 100 mg capsule Take 1 capsule every day by oral route. Colace 100 mg capsule Take 1 capsule every day by oral route. No 1capsul e(s) Q1D Colace 100 mg capsule Take 1 capsule every day by oral route. [facility] Metformin hydrochlori de 500 MG Oral Tablet Metformin hydrochlori de 500 MG Oral Tablet Yes 500mg 2xD orally 2 times per day [facility] (LU/LI V/SA) ergocalcife rol (vitamin D2) 1,250 mcg (50,000 unit) capsule Take 1 capsule every week by oral route. ergocalcife rol (vitamin D2) 1,250 mcg (50,000 unit) capsule Take 1 capsule every week by oral route. No ergocalcif kristen (vitamin D2) 1,250 mcg (50,000 unit) capsule Take 1 capsule every week by oral route. [facility] ferrous sulfate 324 mg (65 mg iron) tablet,kit yed release Take 1 tablet every day by oral route. ferrous sulfate 324 mg (65 mg iron) tablet,kit yed release Take 1 tablet every day by oral route. No 1 Q1D ferrous sulfate 324 mg (65 mg iron) tablet,del ayed release Take 1 tablet every day by oral route. [facility] folic acid 400 mcg tablet Take 1 tablet every day by oral route. folic acid 400 mcg tablet Take 1 tablet every day by oral route. No 1 Q1D folic acid 400 mcg tablet Take 1 tablet every day by oral route. [facility] furosemide 80 mg tablet Take 1 tablet every day by oral route for 30 days. furosemide 80 mg tablet Take 1 tablet every day by oral route for 30 days. No furosemide 80 mg tablet Take 1 tablet every day by oral route for 30 days. [facility] gabapentin 300 mg capsule Take 1 capsule 3 times a day by oral route for 30 days. gabapentin 300 mg capsule Take 1 capsule 3 times a day by oral route for 30 days. No gabapentin 300 mg capsule Take 1 capsule 3 times a day by oral route for 30 days. [facility] insulin glargine (U-100) 100 unit/mL subcutaneou s solution INJECT 39U UNDER THE SKIN EVERY DAY insulin glargine (U-100) 100 unit/mL subcutaneou s solution INJECT 39U UNDER THE SKIN EVERY DAY No insulin glargine (U-100) 100 unit/mL subcutaneo us solution INJECT 39U UNDER THE SKIN EVERY DAY [facility] ipratropium bromide 0.02 % solution for inhalation Inhale 2.5 mL every 6 hours by inhalation route. ipratropium bromide 0.02 % solution for inhalation Inhale 2.5 mL every 6 hours by inhalation route. No 2.5mL Q6H ipratropiu m bromide 0.02 % solution for inhalation Inhale 2.5 mL every 6 hours by inhalation route. [facility] lactulose 10 gram/15 mL oral solution lactulose 10 gram/15 mL oral solution No lactulose 10 gram/15 mL oral solution [facility] lisinopril 5 mg tablet Take 1 tablet every day by oral route for 30 days. lisinopril 5 mg tablet Take 1 tablet every day by oral route for 30 days. No lisinopril 5 mg tablet Take 1 tablet every day by oral route for 30 days. [facility] metformin 500 mg tablet Take 1 tablet twice a day by oral route for 30 days. metformin 500 mg tablet Take 1 tablet twice a day by oral route for 30 days. No metformin 500 mg tablet Take 1 tablet twice a day by oral route for 30 days. [facility] predniSONE 10 mg predniSONE 10 mg Yes 1 orally per package directions (2 pills a day for 1 day then 1 pill a day for 1 day then 1/2 pill a day for 1 day and then stop) [facility] Nystop 100,000 unit/gram topical powder Nystop 100,000 unit/gram topical powder No Nystop 100,000 unit/gram topical powder [facility] ProAir HFA 90 mcg/actuati on aerosol inhaler Inhale 2 puffs every 4 hours by inhalation route as needed. ProAir HFA 90 mcg/actuati on aerosol inhaler Inhale 2 puffs every 4 hours by inhalation route as needed. No 2puff(s ) Q4H ProAir HFA 90 mcg/actuat ion aerosol inhaler Inhale 2 puffs every 4 hours by inhalation route as needed. [facility] sertraline 100 mg tablet Take 1 tablet every day by oral route for 30 days. sertraline 100 mg tablet Take 1 tablet every day by oral route for 30 days. No sertraline 100 mg tablet Take 1 tablet every day by oral route for 30 days. [facility] spironolact one 25 mg tablet Take 1 tablet every day by oral route. spironolact one 25 mg tablet Take 1 tablet every day by oral route. No spironolac tone 25 mg tablet Take 1 tablet every day by oral route. [facility] Tums Extra Strength Smoothies 300 mg (750 mg) chewable tablet Take 1 tablet twice a day by oral route. Tums Extra Strength Smoothies 300 mg (750 mg) chewable tablet Take 1 tablet twice a day by oral route. No 1 BID Tums Extra Strength Smoothies 300 mg (750 mg) chewable tablet Take 1 tablet twice a day by oral route. [facility] zinc oxide topical ointment Apply to affected skin TID zinc oxide topical ointment Apply to affected skin TID No zinc oxide topical ointment Apply to affected skin TID [facility] Jeri Allergy 180 mg tablet Take 1 tablet every day by oral route. Jeri Allergy 180 mg tablet Take 1 tablet every day by oral route. No 1 Q1D Jeri Allergy 180 mg tablet Take 1 tablet every day by oral route. [facility] aripiprazol e 10 mg tablet Take 1 tablet every day by oral route at bedtime for 30 days. aripiprazol e 10 mg tablet Take 1 tablet every day by oral route at bedtime for 30 days. No aripiprazo le 10 mg tablet Take 1 tablet every day by oral route at bedtime for 30 days. [facility] aspirin 81 mg tablet,kit yed release Take 1 tablet every day by oral route. aspirin 81 mg tablet,kit yed release Take 1 tablet every day by oral route. No 1 Q1D aspirin 81 mg tablet,del ayed release Take 1 tablet every day by oral route. [facility] atorvastati n 40 mg tablet Take 1 tablet every day by oral route at bedtime for 30 days. atorvastati n 40 mg tablet Take 1 tablet every day by oral route at bedtime for 30 days. No atorvastat in 40 mg tablet Take 1 tablet every day by oral route at bedtime for 30 days. [facility] benztropine 1 mg tablet Take 1 mg every day by oral route at bedtime for 30 days. benztropine 1 mg tablet Take 1 mg every day by oral route at bedtime for 30 days. No benztropin e 1 mg tablet Take 1 mg every day by oral route at bedtime for 30 days. [facility] budesonide- formoterol HFA 160 mcg-4.5 mcg/actuati on aerosol inhaler Inhale 2 puffs twice a day by inhalation route. budesonide- formoterol HFA 160 mcg-4.5 mcg/actuati on aerosol inhaler Inhale 2 puffs twice a day by inhalation route. No budesonide -formotero l HFA 160 mcg-4.5 mcg/actuat ion aerosol inhaler Inhale 2 puffs twice a day by inhalation route. [facility] Colace 100 mg capsule Take 1 capsule every day by oral route. Colace 100 mg capsule Take 1 capsule every day by oral route. No 1capsul e(s) Q1D Colace 100 mg capsule Take 1 capsule every day by oral route. [facility] doxycycline hyclate 100 mg tablet doxycycline hyclate 100 mg tablet No doxycyclin e hyclate 100 mg tablet [facility] ergocalcife rol (vitamin D2) 1,250 mcg (50,000 unit) capsule Take 1 capsule every week by oral route. ergocalcife rol (vitamin D2) 1,250 mcg (50,000 unit) capsule Take 1 capsule every week by oral route. No ergocalcif kristen (vitamin D2) 1,250 mcg (50,000 unit) capsule Take 1 capsule every week by oral route. [facility] ferrous sulfate 324 mg (65 mg iron) tablet,kit yed release Take 1 tablet every day by oral route. ferrous sulfate 324 mg (65 mg iron) tablet,kit yed release Take 1 tablet every day by oral route. No 1 Q1D ferrous sulfate 324 mg (65 mg iron) tablet,del ayed release Take 1 tablet every day by oral route. [facility] folic acid 400 mcg tablet Take 1 tablet every day by oral route. folic acid 400 mcg tablet Take 1 tablet every day by oral route. No 1 Q1D folic acid 400 mcg tablet Take 1 tablet every day by oral route. [facility] furosemide 80 mg tablet Take 1 tablet every day by oral route for 30 days. furosemide 80 mg tablet Take 1 tablet every day by oral route for 30 days. No furosemide 80 mg tablet Take 1 tablet every day by oral route for 30 days. [facility] gabapentin 300 mg capsule Take 1 capsule 3 times a day by oral route for 30 days. gabapentin 300 mg capsule Take 1 capsule 3 times a day by oral route for 30 days. No gabapentin 300 mg capsule Take 1 capsule 3 times a day by oral route for 30 days. [facility] insulin glargine (U-100) 100 unit/mL subcutaneou s solution INJECT 39U UNDER THE SKIN EVERY DAY insulin glargine (U-100) 100 unit/mL subcutaneou s solution INJECT 39U UNDER THE SKIN EVERY DAY No insulin glargine (U-100) 100 unit/mL subcutaneo us solution INJECT 39U UNDER THE SKIN EVERY DAY [facility] insulin glargine-yf gn (U-100) 100 unit/mL subcutaneou s solution insulin glargine-yf gn (U-100) 100 unit/mL subcutaneou s solution No insulin glargine-y fgn (U-100) 100 unit/mL subcutaneo us solution [facility] ipratropium bromide 0.02 % solution for inhalation Inhale 2.5 mL every 6 hours by inhalation route. ipratropium bromide 0.02 % solution for inhalation Inhale 2.5 mL every 6 hours by inhalation route. No 2.5mL Q6H ipratropiu m bromide 0.02 % solution for inhalation Inhale 2.5 mL every 6 hours by inhalation route. [facility] lactulose 10 gram/15 mL oral solution lactulose 10 gram/15 mL oral solution No lactulose 10 gram/15 mL oral solution [facility] lisinopril 5 mg tablet Take 1 tablet every day by oral route for 30 days. lisinopril 5 mg tablet Take 1 tablet every day by oral route for 30 days. No lisinopril 5 mg tablet Take 1 tablet every day by oral route for 30 days. [facility] metformin 500 mg tablet Take 1 tablet twice a day by oral route for 30 days. metformin 500 mg tablet Take 1 tablet twice a day by oral route for 30 days. No metformin 500 mg tablet Take 1 tablet twice a day by oral route for 30 days. [facility] Nystop 100,000 unit/gram topical powder Nystop 100,000 unit/gram topical powder No Nystop 100,000 unit/gram topical powder [facility] ProAir HFA 90 mcg/actuati on aerosol inhaler Inhale 2 puffs every 4 hours by inhalation route as needed. ProAir HFA 90 mcg/actuati on aerosol inhaler Inhale 2 puffs every 4 hours by inhalation route as needed. No 2puff(s ) Q4H ProAir HFA 90 mcg/actuat ion aerosol inhaler Inhale 2 puffs every 4 hours by inhalation route as needed. [facility] sertraline 100 mg tablet Take 1 tablet every day by oral route for 30 days. sertraline 100 mg tablet Take 1 tablet every day by oral route for 30 days. No sertraline 100 mg tablet Take 1 tablet every day by oral route for 30 days. [facility] spironolact one 25 mg tablet Take 1 tablet every day by oral route. spironolact one 25 mg tablet Take 1 tablet every day by oral route. No spironolac tone 25 mg tablet Take 1 tablet every day by oral route. [facility] Tums Extra Strength Smoothies 300 mg (750 mg) chewable tablet Take 1 tablet twice a day by oral route. Tums Extra Strength Smoothies 300 mg (750 mg) chewable tablet Take 1 tablet twice a day by oral route. No 1 BID Tums Extra Strength Smoothies 300 mg (750 mg) chewable tablet Take 1 tablet twice a day by oral route. [facility] zinc oxide topical ointment Apply to affected skin TID zinc oxide topical ointment Apply to affected skin TID No zinc oxide topical ointment Apply to affected skin TID [facility] Jeri Allergy 180 mg tablet Take 1 tablet every day by oral route. [facility] Allergy 180 mg tablet Take 1 tablet every day by oral route. No 1 Q1D Jeri Allergy 180 mg tablet Take 1 tablet every day by oral route. [facility] aripiprazol e 10 mg tablet Take 1 tablet every day by oral route at bedtime for 30 days. aripiprazol e 10 mg tablet Take 1 tablet every day by oral route at bedtime for 30 days. No aripiprazo le 10 mg tablet Take 1 tablet every day by oral route at bedtime for 30 days. [facility] aspirin 81 mg tablet,kit yed release Take 1 tablet every day by oral route. aspirin 81 mg tablet,kit yed release Take 1 tablet every day by oral route. No 1 Q1D aspirin 81 mg tablet,del ayed release Take 1 tablet every day by oral route. [facility] atorvastati n 40 mg tablet Take 1 tablet every day by oral route at bedtime for 30 days. atorvastati n 40 mg tablet Take 1 tablet every day by oral route at bedtime for 30 days. No atorvastat in 40 mg tablet Take 1 tablet every day by oral route at bedtime for 30 days. [facility] benztropine 1 mg tablet Take 1 mg every day by oral route at bedtime for 30 days. benztropine 1 mg tablet Take 1 mg every day by oral route at bedtime for 30 days. No benztropin e 1 mg tablet Take 1 mg every day by oral route at bedtime for 30 days. [facility] budesonide- formoterol HFA 160 mcg-4.5 mcg/actuati on aerosol inhaler Inhale 2 puffs twice a day by inhalation route. budesonide- formoterol HFA 160 mcg-4.5 mcg/actuati on aerosol inhaler Inhale 2 puffs twice a day by inhalation route. No budesonide -formotero l HFA 160 mcg-4.5 mcg/actuat ion aerosol inhaler Inhale 2 puffs twice a day by inhalation route. [facility] Colace 100 mg capsule Take 1 capsule every day by oral route. Colace 100 mg capsule Take 1 capsule every day by oral route. No 1capsul e(s) Q1D Colace 100 mg capsule Take 1 capsule every day by oral route. [facility] doxycycline hyclate 100 mg tablet doxycycline hyclate 100 mg tablet No doxycyclin e hyclate 100 mg tablet [facility] ergocalcife rol (vitamin D2) 1,250 mcg (50,000 unit) capsule Take 1 capsule every week by oral route. ergocalcife rol (vitamin D2) 1,250 mcg (50,000 unit) capsule Take 1 capsule every week by oral route. No ergocalcif kristen (vitamin D2) 1,250 mcg (50,000 unit) capsule Take 1 capsule every week by oral route. [facility] ferrous sulfate 324 mg (65 mg iron) tablet,kit yed release Take 1 tablet every day by oral route. ferrous sulfate 324 mg (65 mg iron) tablet,kit yed release Take 1 tablet every day by oral route. No 1 Q1D ferrous sulfate 324 mg (65 mg iron) tablet,del ayed release Take 1 tablet every day by oral route. [facility] folic acid 400 mcg tablet Take 1 tablet every day by oral route. folic acid 400 mcg tablet Take 1 tablet every day by oral route. No 1 Q1D folic acid 400 mcg tablet Take 1 tablet every day by oral route. [facility] furosemide 80 mg tablet Take 1 tablet every day by oral route for 30 days. furosemide 80 mg tablet Take 1 tablet every day by oral route for 30 days. No furosemide 80 mg tablet Take 1 tablet every day by oral route for 30 days. [facility] gabapentin 300 mg capsule Take 1 capsule 3 times a day by oral route for 30 days. gabapentin 300 mg capsule Take 1 capsule 3 times a day by oral route for 30 days. No gabapentin 300 mg capsule Take 1 capsule 3 times a day by oral route for 30 days. [facility] insulin glargine (U-100) 100 unit/mL subcutaneou s solution INJECT 39U UNDER THE SKIN EVERY DAY insulin glargine (U-100) 100 unit/mL subcutaneou s solution INJECT 39U UNDER THE SKIN EVERY DAY No insulin glargine (U-100) 100 unit/mL subcutaneo us solution INJECT 39U UNDER THE SKIN EVERY DAY [facility] insulin glargine-yf gn (U-100) 100 unit/mL subcutaneou s solution insulin glargine-yf gn (U-100) 100 unit/mL subcutaneou s solution No insulin glargine-y fgn (U-100) 100 unit/mL subcutaneo us solution [facility] ipratropium bromide 0.02 % solution for inhalation Inhale 2.5 mL every 6 hours by inhalation route. ipratropium bromide 0.02 % solution for inhalation Inhale 2.5 mL every 6 hours by inhalation route. No 2.5mL Q6H ipratropiu m bromide 0.02 % solution for inhalation Inhale 2.5 mL every 6 hours by inhalation route. [facility] lactulose 10 gram/15 mL oral solution lactulose 10 gram/15 mL oral solution No lactulose 10 gram/15 mL oral solution [facility] lisinopril 5 mg tablet Take 1 tablet every day by oral route for 30 days. lisinopril 5 mg tablet Take 1 tablet every day by oral route for 30 days. No lisinopril 5 mg tablet Take 1 tablet every day by oral route for 30 days. [facility] metformin 500 mg tablet Take 1 tablet twice a day by oral route for 30 days. metformin 500 mg tablet Take 1 tablet twice a day by oral route for 30 days. No metformin 500 mg tablet Take 1 tablet twice a day by oral route for 30 days. [facility] Nystop 100,000 unit/gram topical powder Nystop 100,000 unit/gram topical powder No Nystop 100,000 unit/gram topical powder [facility] ProAir HFA 90 mcg/actuati on aerosol inhaler Inhale 2 puffs every 4 hours by inhalation route as needed. ProAir HFA 90 mcg/actuati on aerosol inhaler Inhale 2 puffs every 4 hours by inhalation route as needed. No 2puff(s ) Q4H ProAir HFA 90 mcg/actuat ion aerosol inhaler Inhale 2 puffs every 4 hours by inhalation route as needed. [facility] sertraline 100 mg tablet Take 1 tablet every day by oral route for 30 days. sertraline 100 mg tablet Take 1 tablet every day by oral route for 30 days. No sertraline 100 mg tablet Take 1 tablet every day by oral route for 30 days. [facility] spironolact one 25 mg tablet Take 1 tablet every day by oral route. spironolact one 25 mg tablet Take 1 tablet every day by oral route. No spironolac tone 25 mg tablet Take 1 tablet every day by oral route. [facility] Tums Extra Strength Smoothies 300 mg (750 mg) chewable tablet Take 1 tablet twice a day by oral route. Tums Extra Strength Smoothies 300 mg (750 mg) chewable tablet Take 1 tablet twice a day by oral route. No 1 BID Tums Extra Strength Smoothies 300 mg (750 mg) chewable tablet Take 1 tablet twice a day by oral route. [facility] zinc oxide topical ointment Apply to affected skin TID zinc oxide topical ointment Apply to affected skin TID No zinc oxide topical ointment Apply to affected skin TID [facility] Jeri Allergy 180 mg tablet Take 1 tablet every day by oral route. Jeri Allergy 180 mg tablet Take 1 tablet every day by oral route. No 1 Q1D Jeri Allergy 180 mg tablet Take 1 tablet every day by oral route. [facility] aripiprazol e 10 mg tablet Take 1 tablet every day by oral route at bedtime for 30 days. aripiprazol e 10 mg tablet Take 1 tablet every day by oral route at bedtime for 30 days. No aripiprazo le 10 mg tablet Take 1 tablet every day by oral route at bedtime for 30 days. [facility] aspirin 81 mg tablet,kit yed release Take 1 tablet every day by oral route. aspirin 81 mg tablet,kit yed release Take 1 tablet every day by oral route. No 1 Q1D aspirin 81 mg tablet,del ayed release Take 1 tablet every day by oral route. [facility] atorvastati n 40 mg tablet Take 1 tablet every day by oral route at bedtime for 30 days. atorvastati n 40 mg tablet Take 1 tablet every day by oral route at bedtime for 30 days. No atorvastat in 40 mg tablet Take 1 tablet every day by oral route at bedtime for 30 days. [facility] benztropine 1 mg tablet Take 1 mg every day by oral route at bedtime for 30 days. benztropine 1 mg tablet Take 1 mg every day by oral route at bedtime for 30 days. No benztropin e 1 mg tablet Take 1 mg every day by oral route at bedtime for 30 days. [facility] budesonide- formoterol HFA 160 mcg-4.5 mcg/actuati on aerosol inhaler Inhale 2 puffs twice a day by inhalation route. budesonide- formoterol HFA 160 mcg-4.5 mcg/actuati on aerosol inhaler Inhale 2 puffs twice a day by inhalation route. No budesonide -formotero l HFA 160 mcg-4.5 mcg/actuat ion aerosol inhaler Inhale 2 puffs twice a day by inhalation route. [facility] Colace 100 mg capsule Take 1 capsule every day by oral route. Colace 100 mg capsule Take 1 capsule every day by oral route. No 1capsul e(s) Q1D Colace 100 mg capsule Take 1 capsule every day by oral route. [facility] doxycycline hyclate 100 mg tablet doxycycline hyclate 100 mg tablet No doxycyclin e hyclate 100 mg tablet [facility] ergocalcife rol (vitamin D2) 1,250 mcg (50,000 unit) capsule Take 1 capsule every week by oral route. ergocalcife rol (vitamin D2) 1,250 mcg (50,000 unit) capsule Take 1 capsule every week by oral route. No ergocalcif kristen (vitamin D2) 1,250 mcg (50,000 unit) capsule Take 1 capsule every week by oral route. [facility] ferrous sulfate 324 mg (65 mg iron) tablet,kit yed release Take 1 tablet every day by oral route. ferrous sulfate 324 mg (65 mg iron) tablet,kit yed release Take 1 tablet every day by oral route. No 1 Q1D ferrous sulfate 324 mg (65 mg iron) tablet,del ayed release Take 1 tablet every day by oral route. [facility] folic acid 400 mcg tablet Take 1 tablet every day by oral route. folic acid 400 mcg tablet Take 1 tablet every day by oral route. No 1 Q1D folic acid 400 mcg tablet Take 1 tablet every day by oral route. [facility] furosemide 80 mg tablet Take 1 tablet every day by oral route for 30 days. furosemide 80 mg tablet Take 1 tablet every day by oral route for 30 days. No furosemide 80 mg tablet Take 1 tablet every day by oral route for 30 days. [facility] gabapentin 300 mg capsule Take 1 capsule 3 times a day by oral route for 30 days. gabapentin 300 mg capsule Take 1 capsule 3 times a day by oral route for 30 days. No gabapentin 300 mg capsule Take 1 capsule 3 times a day by oral route for 30 days. [facility] insulin glargine (U-100) 100 unit/mL subcutaneou s solution INJECT 39U UNDER THE SKIN EVERY DAY insulin glargine (U-100) 100 unit/mL subcutaneou s solution INJECT 39U UNDER THE SKIN EVERY DAY No insulin glargine (U-100) 100 unit/mL subcutaneo us solution INJECT 39U UNDER THE SKIN EVERY DAY [facility] insulin glargine-yf gn (U-100) 100 unit/mL subcutaneou s solution insulin glargine-yf gn (U-100) 100 unit/mL subcutaneou s solution No insulin glargine-y fgn (U-100) 100 unit/mL subcutaneo us solution [facility] ipratropium bromide 0.02 % solution for inhalation Inhale 2.5 mL every 6 hours by inhalation route. ipratropium bromide 0.02 % solution for inhalation Inhale 2.5 mL every 6 hours by inhalation route. No 2.5mL Q6H ipratropiu m bromide 0.02 % solution for inhalation Inhale 2.5 mL every 6 hours by inhalation route. [facility] lactulose 10 gram/15 mL oral solution lactulose 10 gram/15 mL oral solution No lactulose 10 gram/15 mL oral solution [facility] lisinopril 5 mg tablet Take 1 tablet every day by oral route for 30 days. lisinopril 5 mg tablet Take 1 tablet every day by oral route for 30 days. No lisinopril 5 mg tablet Take 1 tablet every day by oral route for 30 days. [facility] metformin 500 mg tablet Take 1 tablet twice a day by oral route for 30 days. metformin 500 mg tablet Take 1 tablet twice a day by oral route for 30 days. No metformin 500 mg tablet Take 1 tablet twice a day by oral route for 30 days. [facility] Nystop 100,000 unit/gram topical powder Nystop 100,000 unit/gram topical powder No Nystop 100,000 unit/gram topical powder [facility] ProAir HFA 90 mcg/actuati on aerosol inhaler Inhale 2 puffs every 4 hours by inhalation route as needed. ProAir HFA 90 mcg/actuati on aerosol inhaler Inhale 2 puffs every 4 hours by inhalation route as needed. No 2puff(s ) Q4H ProAir HFA 90 mcg/actuat ion aerosol inhaler Inhale 2 puffs every 4 hours by inhalation route as needed. [facility] sertraline 100 mg tablet Take 1 tablet every day by oral route for 30 days. sertraline 100 mg tablet Take 1 tablet every day by oral route for 30 days. No sertraline 100 mg tablet Take 1 tablet every day by oral route for 30 days. [facility] spironolact one 25 mg tablet Take 1 tablet every day by oral route. spironolact one 25 mg tablet Take 1 tablet every day by oral route. No spironolac tone 25 mg tablet Take 1 tablet every day by oral route. [facility] Tums Extra Strength Smoothies 300 mg (750 mg) chewable tablet Take 1 tablet twice a day by oral route. Tums Extra Strength Smoothies 300 mg (750 mg) chewable tablet Take 1 tablet twice a day by oral route. No 1 BID Tums Extra Strength Smoothies 300 mg (750 mg) chewable tablet Take 1 tablet twice a day by oral route. [facility] zinc oxide topical ointment Apply to affected skin TID zinc oxide topical ointment Apply to affected skin TID No zinc oxide topical ointment Apply to affected skin TID [facility] Jeri Allergy 180 mg tablet Take 1 tablet every day by oral route. Jeri Allergy 180 mg tablet Take 1 tablet every day by oral route. No 1 Q1D Jeri Allergy 180 mg tablet Take 1 tablet every day by oral route. [facility] aripiprazol e 10 mg tablet Take 1 tablet every day by oral route at bedtime for 30 days. aripiprazol e 10 mg tablet Take 1 tablet every day by oral route at bedtime for 30 days. No aripiprazo le 10 mg tablet Take 1 tablet every day by oral route at bedtime for 30 days. [facility] aspirin 81 mg tablet,kti yed release Take 1 tablet every day by oral route. aspirin 81 mg tablet,kit yed release Take 1 tablet every day by oral route. No 1 Q1D aspirin 81 mg tablet,del ayed release Take 1 tablet every day by oral route. [facility] atorvastati n 40 mg tablet Take 1 tablet every day by oral route at bedtime for 30 days. atorvastati n 40 mg tablet Take 1 tablet every day by oral route at bedtime for 30 days. No atorvastat in 40 mg tablet Take 1 tablet every day by oral route at bedtime for 30 days. [facility] benztropine 1 mg tablet Take 1 mg every day by oral route at bedtime for 30 days. benztropine 1 mg tablet Take 1 mg every day by oral route at bedtime for 30 days. No benztropin e 1 mg tablet Take 1 mg every day by oral route at bedtime for 30 days. [facility] budesonide- formoterol HFA 160 mcg-4.5 mcg/actuati on aerosol inhaler Inhale 2 puffs twice a day by inhalation route. budesonide- formoterol HFA 160 mcg-4.5 mcg/actuati on aerosol inhaler Inhale 2 puffs twice a day by inhalation route. No budesonide -formotero l HFA 160 mcg-4.5 mcg/actuat ion aerosol inhaler Inhale 2 puffs twice a day by inhalation route. [facility] Colace 100 mg capsule Take 1 capsule every day by oral route. Colace 100 mg capsule Take 1 capsule every day by oral route. No 1capsul e(s) Q1D Colace 100 mg capsule Take 1 capsule every day by oral route. [facility] ergocalcife rol (vitamin D2) 1,250 mcg (50,000 unit) capsule Take 1 capsule every week by oral route. ergocalcife rol (vitamin D2) 1,250 mcg (50,000 unit) capsule Take 1 capsule every week by oral route. No ergocalcif kristen (vitamin D2) 1,250 mcg (50,000 unit) capsule Take 1 capsule every week by oral route. [facility] ferrous sulfate 324 mg (65 mg iron) tablet,kit yed release Take 1 tablet every day by oral route. ferrous sulfate 324 mg (65 mg iron) tablet,kit yed release Take 1 tablet every day by oral route. No 1 Q1D ferrous sulfate 324 mg (65 mg iron) tablet,del ayed release Take 1 tablet every day by oral route. [facility] folic acid 400 mcg tablet Take 1 tablet every day by oral route. folic acid 400 mcg tablet Take 1 tablet every day by oral route. No 1 Q1D folic acid 400 mcg tablet Take 1 tablet every day by oral route. [facility] furosemide 80 mg tablet Take 1 tablet every day by oral route for 30 days. furosemide 80 mg tablet Take 1 tablet every day by oral route for 30 days. No furosemide 80 mg tablet Take 1 tablet every day by oral route for 30 days. [facility] gabapentin 300 mg capsule Take 1 capsule 3 times a day by oral route for 30 days. gabapentin 300 mg capsule Take 1 capsule 3 times a day by oral route for 30 days. No gabapentin 300 mg capsule Take 1 capsule 3 times a day by oral route for 30 days. [facility] ipratropium bromide 0.02 % solution for inhalation Inhale 2.5 mL every 6 hours by inhalation route. ipratropium bromide 0.02 % solution for inhalation Inhale 2.5 mL every 6 hours by inhalation route. No 2.5mL Q6H ipratropiu m bromide 0.02 % solution for inhalation Inhale 2.5 mL every 6 hours by inhalation route. [facility] lactulose 10 gram/15 mL oral solution lactulose 10 gram/15 mL oral solution No lactulose 10 gram/15 mL oral solution [facility] Lantus U-100 Insulin 100 unit/mL subcutaneou s solution Inject 39 units every day by subcutaneou s route. Lantus U-100 Insulin 100 unit/mL subcutaneou s solution Inject 39 units every day by subcutaneou s route. No 39unit( s) Q1D Lantus U-100 Insulin 100 unit/mL subcutaneo us solution Inject 39 units every day by subcutaneo us route. [facility] acetazolami de 250 mg tablet TAKE 1 TABLET BY MOUTH TWICE DAILY acetazolami de 250 mg tablet TAKE 1 TABLET BY MOUTH TWICE DAILY No acetazolam edmond 250 mg tablet TAKE 1 TABLET BY MOUTH TWICE DAILY [facility] albuterol sulfate 2.5 mg/3 mL (0.083 %) solution for nebulizatio n Inhale 3 mL every 6 hours by inhalation route as needed. albuterol sulfate 2.5 mg/3 mL (0.083 %) solution for nebulizatio n Inhale 3 mL every 6 hours by inhalation route as needed. No albuterol sulfate 2.5 mg/3 mL (0.083 %) solution for nebulizati on Inhale 3 mL every 6 hours by inhalation route as needed. [facility] Jeri Allergy 180 mg tablet Take 1 tablet every day by oral route. Jeri Allergy 180 mg tablet Take 1 tablet every day by oral route. No 1 Q1D Jeri Allergy 180 mg tablet Take 1 tablet every day by oral route. [facility] lisinopril 5 mg tablet Take 1 tablet every day by oral route for 30 days. lisinopril 5 mg tablet Take 1 tablet every day by oral route for 30 days. No lisinopril 5 mg tablet Take 1 tablet every day by oral route for 30 days. [facility] ammonium lactate 12 % topical cream ammonium lactate 12 % topical cream No ammonium lactate 12 % topical cream [facility] aripiprazol e 10 mg tablet Take 1 tablet every day by oral route at bedtime for 30 days. aripiprazol e 10 mg tablet Take 1 tablet every day by oral route at bedtime for 30 days. No aripiprazo le 10 mg tablet Take 1 tablet every day by oral route at bedtime for 30 days. [facility] aspirin 81 mg tablet,kit yed release Take 1 tablet every day by oral route. aspirin 81 mg tablet,kit yed release Take 1 tablet every day by oral route. No 1 Q1D aspirin 81 mg tablet,del ayed release Take 1 tablet every day by oral route. [facility] atorvastati n 40 mg tablet Take 1 tablet every day by oral route at bedtime for 30 days. atorvastati n 40 mg tablet Take 1 tablet every day by oral route at bedtime for 30 days. No atorvastat in 40 mg tablet Take 1 tablet every day by oral route at bedtime for 30 days. [facility] benztropine 1 mg tablet Take 1 mg every day by oral route at bedtime for 30 days. benztropine 1 mg tablet Take 1 mg every day by oral route at bedtime for 30 days. No benztropin e 1 mg tablet Take 1 mg every day by oral route at bedtime for 30 days. [facility] Brovana 15 mcg/2 mL solution for nebulizatio n Inhale 2 mL twice a day by inhalation route. Brovana 15 mcg/2 mL solution for nebulizatio n Inhale 2 mL twice a day by inhalation route. No Brovana 15 mcg/2 mL solution for nebulizati on Inhale 2 mL twice a day by inhalation route. [facility] clobetasol 0.05 % topical cream APPLY A THIN LAYER TO THE AFFECTED AREA(S) BY TOPICAL ROUTE 2 TIMES PER DAY clobetasol 0.05 % topical cream APPLY A THIN LAYER TO THE AFFECTED AREA(S) BY TOPICAL ROUTE 2 TIMES PER DAY No clobetasol 0.05 % topical cream APPLY A THIN LAYER TO THE AFFECTED AREA(S) BY TOPICAL ROUTE 2 TIMES PER DAY [facility] Colace 100 mg capsule Take 1 capsule every day by oral route. Colace 100 mg capsule Take 1 capsule every day by oral route. No 1capsul e(s) Q1D Colace 100 mg capsule Take 1 capsule every day by oral route. [facility] ergocalcife rol (vitamin D2) 1,250 mcg (50,000 unit) capsule Take 1 capsule every week by oral route. ergocalcife rol (vitamin D2) 1,250 mcg (50,000 unit) capsule Take 1 capsule every week by oral route. No ergocalcif kristen (vitamin D2) 1,250 mcg (50,000 unit) capsule Take 1 capsule every week by oral route. [facility] ferrous sulfate 324 mg (65 mg iron) tablet,kit yed release Take 1 tablet every day by oral route. ferrous sulfate 324 mg (65 mg iron) tablet,kit yed release Take 1 tablet every day by oral route. No 1 Q1D ferrous sulfate 324 mg (65 mg iron) tablet,del ayed release Take 1 tablet every day by oral route. [facility] metformin 500 mg tablet Take 1 tablet twice a day by oral route for 30 days. metformin 500 mg tablet Take 1 tablet twice a day by oral route for 30 days. No metformin 500 mg tablet Take 1 tablet twice a day by oral route for 30 days. [facility] folic acid 400 mcg tablet Take 1 tablet every day by oral route. folic acid 400 mcg tablet Take 1 tablet every day by oral route. No 1 Q1D folic acid 400 mcg tablet Take 1 tablet every day by oral route. [facility] furosemide 80 mg tablet Take 1 tablet every day by oral route for 30 days. furosemide 80 mg tablet Take 1 tablet every day by oral route for 30 days. No furosemide 80 mg tablet Take 1 tablet every day by oral route for 30 days. [facility] gabapentin 300 mg capsule Take 1 capsule 3 times a day by oral route for 30 days. gabapentin 300 mg capsule Take 1 capsule 3 times a day by oral route for 30 days. No gabapentin 300 mg capsule Take 1 capsule 3 times a day by oral route for 30 days. [facility] insulin glargine (U-100) 100 unit/mL (3 mL) subcutaneou s pen Inject 46 units every day by subcutaneou s route. insulin glargine (U-100) 100 unit/mL (3 mL) subcutaneou s pen Inject 46 units every day by subcutaneou s route. No 46unit( s) Q1D insulin glargine (U-100) 100 unit/mL (3 mL) subcutaneo us pen Inject 46 units every day by subcutaneo us route. [facility] insulin glargine-yf gn (U-100) 100 unit/mL (3 mL) subcutaneou s pen insulin glargine-yf gn (U-100) 100 unit/mL (3 mL) subcutaneou s pen No insulin glargine-y fgn (U-100) 100 unit/mL (3 mL) subcutaneo us pen [facility] insulin glargine-yf gn (U-100) 100 unit/mL subcutaneou s solution insulin glargine-yf gn (U-100) 100 unit/mL subcutaneou s solution No insulin glargine-y fgn (U-100) 100 unit/mL subcutaneo us solution [facility] lactulose 10 gram/15 mL oral solution lactulose 10 gram/15 mL oral solution No lactulose 10 gram/15 mL oral solution [facility] levofloxaci n 750 mg tablet levofloxaci n 750 mg tablet No levofloxac in 750 mg tablet [facility] lidocaine 5 % topical patch lidocaine 5 % topical patch No lidocaine 5 % topical patch [facility] metformin 500 mg tablet Take 1 tablet twice a day by oral route for 30 days. metformin 500 mg tablet Take 1 tablet twice a day by oral route for 30 days. No metformin 500 mg tablet Take 1 tablet twice a day by oral route for 30 days. [facility] Nystop 100,000 unit/gram topical powder Nystop 100,000 unit/gram topical powder No Nystop 100,000 unit/gram topical powder [facility] nitroglycer in 0.4 mg sublingual tablet GIVE 1 TABLET SUB-LINGUAL NEEDED FOR CHEST PAIN. MAY REPEAT EVERY 5 MINUTES WITH MAX OF 3 DOSES. nitroglycer in 0.4 mg sublingual tablet GIVE 1 TABLET SUB-LINGUAL NEEDED FOR CHEST PAIN. MAY REPEAT EVERY 5 MINUTES WITH MAX OF 3 DOSES. No nitroglyce rin 0.4 mg sublingual tablet GIVE 1 TABLET SUB-LINGUA L NEEDED FOR CHEST PAIN. MAY REPEAT EVERY 5 MINUTES WITH MAX OF 3 DOSES. [facility] Novolin R FlexPen 100 unit/mL (3 mL) subcutaneou s insulin pen per sliding scale Novolin R FlexPen 100 unit/mL (3 mL) subcutaneou s insulin pen per sliding scale No Novolin R FlexPen 100 unit/mL (3 mL) subcutaneo us insulin pen per sliding scale [facility] Novolin R Regular U-100 Insulin 100 unit/mL injection solution Novolin R Regular U-100 Insulin 100 unit/mL injection solution No Novolin R Regular U-100 Insulin 100 unit/mL injection solution [facility] ondansetron HCl 4 mg tablet ondansetron HCl 4 mg tablet No ondansetro n HCl 4 mg tablet [facility] potassium chloride ER 20 mEq tablet,exte nded release(par t/cryst) Take 1 tablet every day by oral route for 30 days. potassium chloride ER 20 mEq tablet,exte nded release(par t/cryst) Take 1 tablet every day by oral route for 30 days. No potassium chloride ER 20 mEq tablet,ext ended release(pa rt/cryst) Take 1 tablet every day by oral route for 30 days. [facility] prednisone 20 mg tablet prednisone 20 mg tablet No prednisone 20 mg tablet [facility] sertraline 100 mg tablet Take 1 tablet every day by oral route for 30 days. sertraline 100 mg tablet Take 1 tablet every day by oral route for 30 days. No sertraline 100 mg tablet Take 1 tablet every day by oral route for 30 days. [facility] spironolact one 25 mg tablet Take 1 tablet twice a day by oral route. spironolact one 25 mg tablet Take 1 tablet twice a day by oral route. No spironolac tone 25 mg tablet Take 1 tablet twice a day by oral route. [facility] Tums Extra Strength Smoothies 300 mg (750 mg) chewable tablet Take 1 tablet twice a day by oral route. Tums Extra Strength Smoothies 300 mg (750 mg) chewable tablet Take 1 tablet twice a day by oral route. No 1 BID Tums Extra Strength Smoothies 300 mg (750 mg) chewable tablet Take 1 tablet twice a day by oral route. [facility] zinc oxide topical ointment Apply to affected skin TID zinc oxide topical ointment Apply to affected skin TID No zinc oxide topical ointment Apply to affected skin TID [facility] ProAir HFA 90 mcg/actuati on aerosol inhaler Inhale 2 puffs every 4 hours by inhalation route as needed. ProAir HFA 90 mcg/actuati on aerosol inhaler Inhale 2 puffs every 4 hours by inhalation route as needed. No 2puff(s ) Q4H ProAir HFA 90 mcg/actuat ion aerosol inhaler Inhale 2 puffs every 4 hours by inhalation route as needed. [facility] sertraline 100 mg tablet Take 1 tablet every day by oral route for 30 days. sertraline 100 mg tablet Take 1 tablet every day by oral route for 30 days. No sertraline 100 mg tablet Take 1 tablet every day by oral route for 30 days. [facility] spironolact one 25 mg tablet Take 1 tablet every day by oral route. spironolact one 25 mg tablet Take 1 tablet every day by oral route. No spironolac tone 25 mg tablet Take 1 tablet every day by oral route. [facility] Tums Extra Strength Smoothies 300 mg (750 mg) chewable tablet Take 1 tablet twice a day by oral route. Tums Extra Strength Smoothies 300 mg (750 mg) chewable tablet Take 1 tablet twice a day by oral route. No 1 BID Tums Extra Strength Smoothies 300 mg (750 mg) chewable tablet Take 1 tablet twice a day by oral route. [facility] zinc oxide topical ointment Apply to affected skin TID zinc oxide topical ointment Apply to affected skin TID No zinc oxide topical ointment Apply to affected skin TID [facility] acetazolami de 250 mg tablet TAKE 1 TABLET BY MOUTH TWICE DAILY acetazolami de 250 mg tablet TAKE 1 TABLET BY MOUTH TWICE DAILY No acetazolam edmond 250 mg tablet TAKE 1 TABLET BY MOUTH TWICE DAILY [facility] albuterol sulfate 2.5 mg/3 mL (0.083 %) solution for nebulizatio n Inhale 3 mL every 6 hours by inhalation route as needed. albuterol sulfate 2.5 mg/3 mL (0.083 %) solution for nebulizatio n Inhale 3 mL every 6 hours by inhalation route as needed. No albuterol sulfate 2.5 mg/3 mL (0.083 %) solution for nebulizati on Inhale 3 mL every 6 hours by inhalation route as needed. [facility] Jeri Allergy 180 mg tablet Take 1 tablet every day by oral route. Jer[facility] Allergy 180 mg tablet Take 1 tablet every day by oral route. No 1 Q1D Jeri Allergy 180 mg tablet Take 1 tablet every day by oral route. [facility] ammonium lactate 12 % topical cream ammonium lactate 12 % topical cream No ammonium lactate 12 % topical cream [facility] aripiprazol e 10 mg tablet Take 1 tablet every day by oral route at bedtime for 30 days. aripiprazol e 10 mg tablet Take 1 tablet every day by oral route at bedtime for 30 days. No aripiprazo le 10 mg tablet Take 1 tablet every day by oral route at bedtime for 30 days. [facility] aripiprazol e 5 mg tablet aripiprazol e 5 mg tablet No aripiprazo le 5 mg tablet [facility] aspirin 81 mg tablet,kit yed release Take 1 tablet every day by oral route. aspirin 81 mg tablet,kit yed release Take 1 tablet every day by oral route. No 1 Q1D aspirin 81 mg tablet,del ayed release Take 1 tablet every day by oral route. [facility] atorvastati n 40 mg tablet Take 1 tablet every day by oral route at bedtime for 30 days. atorvastati n 40 mg tablet Take 1 tablet every day by oral route at bedtime for 30 days. No atorvastat in 40 mg tablet Take 1 tablet every day by oral route at bedtime for 30 days. [facility] benztropine 1 mg tablet Take 1 mg every day by oral route at bedtime for 30 days. benztropine 1 mg tablet Take 1 mg every day by oral route at bedtime for 30 days. No benztropin e 1 mg tablet Take 1 mg every day by oral route at bedtime for 30 days. [facility] Brovana 15 mcg/2 mL solution for nebulizatio n Inhale 2 mL twice a day by inhalation route. Brovana 15 mcg/2 mL solution for nebulizatio n Inhale 2 mL twice a day by inhalation route. No Brovana 15 mcg/2 mL solution for nebulizati on Inhale 2 mL twice a day by inhalation route. [facility] clobetasol 0.05 % topical cream APPLY A THIN LAYER TO THE AFFECTED AREA(S) BY TOPICAL ROUTE 2 TIMES PER DAY clobetasol 0.05 % topical cream APPLY A THIN LAYER TO THE AFFECTED AREA(S) BY TOPICAL ROUTE 2 TIMES PER DAY No clobetasol 0.05 % topical cream APPLY A THIN LAYER TO THE AFFECTED AREA(S) BY TOPICAL ROUTE 2 TIMES PER DAY [facility] Colace 100 mg capsule Take 1 capsule every day by oral route. Colace 100 mg capsule Take 1 capsule every day by oral route. No 1capsul e(s) Q1D Colace 100 mg capsule Take 1 capsule every day by oral route. [facility] ergocalcife rol (vitamin D2) 1,250 mcg (50,000 unit) capsule Take 1 capsule every week by oral route. ergocalcife rol (vitamin D2) 1,250 mcg (50,000 unit) capsule Take 1 capsule every week by oral route. No ergocalcif kristen (vitamin D2) 1,250 mcg (50,000 unit) capsule Take 1 capsule every week by oral route. [facility] ferrous sulfate 324 mg (65 mg iron) tablet,kit yed release Take 1 tablet every day by oral route. ferrous sulfate 324 mg (65 mg iron) tablet,kit yed release Take 1 tablet every day by oral route. No 1 Q1D ferrous sulfate 324 mg (65 mg iron) tablet,del ayed release Take 1 tablet every day by oral route. [facility] folic acid 400 mcg tablet Take 1 tablet every day by oral route. folic acid 400 mcg tablet Take 1 tablet every day by oral route. No 1 Q1D folic acid 400 mcg tablet Take 1 tablet every day by oral route. [facility] furosemide 80 mg tablet Take 1 tablet every day by oral route for 30 days. furosemide 80 mg tablet Take 1 tablet every day by oral route for 30 days. No furosemide 80 mg tablet Take 1 tablet every day by oral route for 30 days. [facility] gabapentin 300 mg capsule Take 1 capsule 3 times a day by oral route for 30 days. gabapentin 300 mg capsule Take 1 capsule 3 times a day by oral route for 30 days. No gabapentin 300 mg capsule Take 1 capsule 3 times a day by oral route for 30 days. [facility] insulin glargine (U-100) 100 unit/mL (3 mL) subcutaneou s pen Inject 46 units every day by subcutaneou s route. insulin glargine (U-100) 100 unit/mL (3 mL) subcutaneou s pen Inject 46 units every day by subcutaneou s route. No 46unit( s) Q1D insulin glargine (U-100) 100 unit/mL (3 mL) subcutaneo us pen Inject 46 units every day by subcutaneo us route. [facility] insulin glargine-yf gn (U-100) 100 unit/mL (3 mL) subcutaneou s pen insulin glargine-yf gn (U-100) 100 unit/mL (3 mL) subcutaneou s pen No insulin glargine-y fgn (U-100) 100 unit/mL (3 mL) subcutaneo us pen [facility] insulin glargine-yf gn (U-100) 100 unit/mL subcutaneou s solution insulin glargine-yf gn (U-100) 100 unit/mL subcutaneou s solution No insulin glargine-y fgn (U-100) 100 unit/mL subcutaneo us solution [facility] lactulose 10 gram/15 mL oral solution lactulose 10 gram/15 mL oral solution No lactulose 10 gram/15 mL oral solution [facility] levofloxaci n 750 mg tablet levofloxaci n 750 mg tablet No levofloxac in 750 mg tablet [facility] lidocaine 5 % topical patch lidocaine 5 % topical patch No lidocaine 5 % topical patch [facility] metformin 500 mg tablet Take 1 tablet twice a day by oral route for 30 days. metformin 500 mg tablet Take 1 tablet twice a day by oral route for 30 days. No metformin 500 mg tablet Take 1 tablet twice a day by oral route for 30 days. [facility] nitroglycer in 0.4 mg sublingual tablet GIVE 1 TABLET SUB-LINGUAL NEEDED FOR CHEST PAIN. MAY REPEAT EVERY 5 MINUTES WITH MAX OF 3 DOSES. nitroglycer in 0.4 mg sublingual tablet GIVE 1 TABLET SUB-LINGUAL NEEDED FOR CHEST PAIN. MAY REPEAT EVERY 5 MINUTES WITH MAX OF 3 DOSES. No nitroglyce rin 0.4 mg sublingual tablet GIVE 1 TABLET SUB-LINGUA L NEEDED FOR CHEST PAIN. MAY REPEAT EVERY 5 MINUTES WITH MAX OF 3 DOSES. [facility] Novolin R FlexPen 100 unit/mL (3 mL) subcutaneou s insulin pen per sliding scale Novolin R FlexPen 100 unit/mL (3 mL) subcutaneou s insulin pen per sliding scale No Novolin R FlexPen 100 unit/mL (3 mL) subcutaneo us insulin pen per sliding scale [facility] Novolin R Regular U-100 Insulin 100 unit/mL injection solution Novolin R Regular U-100 Insulin 100 unit/mL injection solution No Novolin R Regular U-100 Insulin 100 unit/mL injection solution [facility] ondansetron HCl 4 mg tablet ondansetron HCl 4 mg tablet No ondansetro n HCl 4 mg tablet [facility] potassium chloride ER 20 mEq tablet,exte nded release(par t/cryst) Take 1 tablet every day by oral route for 30 days. potassium chloride ER 20 mEq tablet,exte nded release(par t/cryst) Take 1 tablet every day by oral route for 30 days. No potassium chloride ER 20 mEq tablet,ext ended release(pa rt/cryst) Take 1 tablet every day by oral route for 30 days. [facility] prednisone 20 mg tablet prednisone 20 mg tablet No prednisone 20 mg tablet [facility] sertraline 100 mg tablet Take 1 tablet every day by oral route for 30 days. sertraline 100 mg tablet Take 1 tablet every day by oral route for 30 days. No sertraline 100 mg tablet Take 1 tablet every day by oral route for 30 days. [facility] spironolact one 25 mg tablet Take 1 tablet twice a day by oral route. spironolact one 25 mg tablet Take 1 tablet twice a day by oral route. No spironolac tone 25 mg tablet Take 1 tablet twice a day by oral route. [facility] Tums Extra Strength Smoothies 300 mg (750 mg) chewable tablet Take 1 tablet twice a day by oral route. Tums Extra Strength Smoothies 300 mg (750 mg) chewable tablet Take 1 tablet twice a day by oral route. No 1 BID Tums Extra Strength Smoothies 300 mg (750 mg) chewable tablet Take 1 tablet twice a day by oral route. [facility] zinc oxide topical ointment Apply to affected skin TID zinc oxide topical ointment Apply to affected skin TID No zinc oxide topical ointment Apply to affected skin TID [facility] acetazolami de 250 mg tablet TAKE 1 TABLET BY MOUTH TWICE DAILY acetazolami de 250 mg tablet TAKE 1 TABLET BY MOUTH TWICE DAILY No acetazolam edmond 250 mg tablet TAKE 1 TABLET BY MOUTH TWICE DAILY [facility] albuterol sulfate 2.5 mg/3 mL (0.083 %) solution for nebulizatio n Inhale 3 mL every 6 hours by inhalation route as needed. albuterol sulfate 2.5 mg/3 mL (0.083 %) solution for nebulizatio n Inhale 3 mL every 6 hours by inhalation route as needed. No albuterol sulfate 2.5 mg/3 mL (0.083 %) solution for nebulizati on Inhale 3 mL every 6 hours by inhalation route as needed. [facility] Jeri Allergy 180 mg tablet Take 1 tablet every day by oral route. Jeri Allergy 180 mg tablet Take 1 tablet every day by oral route. No 1 Q1D Jeri Allergy 180 mg tablet Take 1 tablet every day by oral route. [facility] ammonium lactate 12 % topical cream ammonium lactate 12 % topical cream No ammonium lactate 12 % topical cream [facility] aspirin 81 mg tablet,kit yed release Take 1 tablet every day by oral route. aspirin 81 mg tablet,kit yed release Take 1 tablet every day by oral route. No 1 Q1D aspirin 81 mg tablet,del ayed release Take 1 tablet every day by oral route. [facility] atorvastati n 40 mg tablet Take 1 tablet every day by oral route at bedtime for 30 days. atorvastati n 40 mg tablet Take 1 tablet every day by oral route at bedtime for 30 days. No atorvastat in 40 mg tablet Take 1 tablet every day by oral route at bedtime for 30 days. [facility] benztropine 1 mg tablet Take 1 mg every day by oral route at bedtime for 30 days. benztropine 1 mg tablet Take 1 mg every day by oral route at bedtime for 30 days. No benztropin e 1 mg tablet Take 1 mg every day by oral route at bedtime for 30 days. [facility] Brovana 15 mcg/2 mL solution for nebulizatio n Inhale 2 mL twice a day by inhalation route. Brovana 15 mcg/2 mL solution for nebulizatio n Inhale 2 mL twice a day by inhalation route. No Brovana 15 mcg/2 mL solution for nebulizati on Inhale 2 mL twice a day by inhalation route. [facility] clobetasol 0.05 % topical cream APPLY A THIN LAYER TO THE AFFECTED AREA(S) BY TOPICAL ROUTE 2 TIMES PER DAY clobetasol 0.05 % topical cream APPLY A THIN LAYER TO THE AFFECTED AREA(S) BY TOPICAL ROUTE 2 TIMES PER DAY No clobetasol 0.05 % topical cream APPLY A THIN LAYER TO THE AFFECTED AREA(S) BY TOPICAL ROUTE 2 TIMES PER DAY [facility] Colace 100 mg capsule Take 1 capsule every day by oral route. Colace 100 mg capsule Take 1 capsule every day by oral route. No 1capsul e(s) Q1D Colace 100 mg capsule Take 1 capsule every day by oral route. [facility] ergocalcife rol (vitamin D2) 1,250 mcg (50,000 unit) capsule Take 1 capsule every week by oral route. ergocalcife rol (vitamin D2) 1,250 mcg (50,000 unit) capsule Take 1 capsule every week by oral route. No ergocalcif kristen (vitamin D2) 1,250 mcg (50,000 unit) capsule Take 1 capsule every week by oral route. [facility] ferrous sulfate 324 mg (65 mg iron) tablet,kit yed release Take 1 tablet every day by oral route. ferrous sulfate 324 mg (65 mg iron) tablet,kit yed release Take 1 tablet every day by oral route. No 1 Q1D ferrous sulfate 324 mg (65 mg iron) tablet,del ayed release Take 1 tablet every day by oral route. [facility] folic acid 400 mcg tablet Take 1 tablet every day by oral route. folic acid 400 mcg tablet Take 1 tablet every day by oral route. No 1 Q1D folic acid 400 mcg tablet Take 1 tablet every day by oral route. [facility] furosemide 80 mg tablet Take 1 tablet every day by oral route for 30 days. furosemide 80 mg tablet Take 1 tablet every day by oral route for 30 days. No furosemide 80 mg tablet Take 1 tablet every day by oral route for 30 days. [facility] gabapentin 300 mg capsule Take 1 capsule 3 times a day by oral route for 30 days. gabapentin 300 mg capsule Take 1 capsule 3 times a day by oral route for 30 days. No gabapentin 300 mg capsule Take 1 capsule 3 times a day by oral route for 30 days. [facility] insulin glargine (U-100) 100 unit/mL (3 mL) subcutaneou s pen Inject 46 units every day by subcutaneou s route. insulin glargine (U-100) 100 unit/mL (3 mL) subcutaneou s pen Inject 46 units every day by subcutaneou s route. No 46unit( s) Q1D insulin glargine (U-100) 100 unit/mL (3 mL) subcutaneo us pen Inject 46 units every day by subcutaneo us route. [facility] insulin glargine-yf gn (U-100) 100 unit/mL (3 mL) subcutaneou s pen insulin glargine-yf gn (U-100) 100 unit/mL (3 mL) subcutaneou s pen No insulin glargine-y fgn (U-100) 100 unit/mL (3 mL) subcutaneo us pen [facility] insulin glargine-yf gn (U-100) 100 unit/mL subcutaneou s solution insulin glargine-yf gn (U-100) 100 unit/mL subcutaneou s solution No insulin glargine-y fgn (U-100) 100 unit/mL subcutaneo us solution [facility] lactulose 10 gram/15 mL oral solution lactulose 10 gram/15 mL oral solution No lactulose 10 gram/15 mL oral solution [facility] levofloxaci n 750 mg tablet levofloxaci n 750 mg tablet No levofloxac in 750 mg tablet [facility] lidocaine 5 % topical patch lidocaine 5 % topical patch No lidocaine 5 % topical patch [facility] metformin 500 mg tablet Take 1 tablet twice a day by oral route for 30 days. metformin 500 mg tablet Take 1 tablet twice a day by oral route for 30 days. No metformin 500 mg tablet Take 1 tablet twice a day by oral route for 30 days. [facility] nitroglycer in 0.4 mg sublingual tablet GIVE 1 TABLET SUB-LINGUAL NEEDED FOR CHEST PAIN. MAY REPEAT EVERY 5 MINUTES WITH MAX OF 3 DOSES. nitroglycer in 0.4 mg sublingual tablet GIVE 1 TABLET SUB-LINGUAL NEEDED FOR CHEST PAIN. MAY REPEAT EVERY 5 MINUTES WITH MAX OF 3 DOSES. No nitroglyce rin 0.4 mg sublingual tablet GIVE 1 TABLET SUB-LINGUA L NEEDED FOR CHEST PAIN. MAY REPEAT EVERY 5 MINUTES WITH MAX OF 3 DOSES. [facility] Novolin R FlexPen 100 unit/mL (3 mL) subcutaneou s insulin pen per sliding scale Novolin R FlexPen 100 unit/mL (3 mL) subcutaneou s insulin pen per sliding scale No Novolin R FlexPen 100 unit/mL (3 mL) subcutaneo us insulin pen per sliding scale [facility] Novolin R Regular U-100 Insulin 100 unit/mL injection solution Novolin R Regular U-100 Insulin 100 unit/mL injection solution No Novolin R Regular U-100 Insulin 100 unit/mL injection solution [facility] ondansetron HCl 4 mg tablet ondansetron HCl 4 mg tablet No ondansetro n HCl 4 mg tablet [facility] potassium chloride ER 20 mEq tablet,exte nded release(par t/cryst) Take 1 tablet every day by oral route for 30 days. potassium chloride ER 20 mEq tablet,exte nded release(par t/cryst) Take 1 tablet every day by oral route for 30 days. No potassium chloride ER 20 mEq tablet,ext ended release(pa rt/cryst) Take 1 tablet every day by oral route for 30 days. [facility] prednisone 20 mg tablet prednisone 20 mg tablet No prednisone 20 mg tablet [facility] sertraline 100 mg tablet Take 1 tablet every day by oral route for 30 days. sertraline 100 mg tablet Take 1 tablet every day by oral route for 30 days. No sertraline 100 mg tablet Take 1 tablet every day by oral route for 30 days. [facility] spironolact one 25 mg tablet Take 1 tablet twice a day by oral route. spironolact one 25 mg tablet Take 1 tablet twice a day by oral route. No spironolac tone 25 mg tablet Take 1 tablet twice a day by oral route. [facility] Tums Extra Strength Smoothies 300 mg (750 mg) chewable tablet Take 1 tablet twice a day by oral route. Tums Extra Strength Smoothies 300 mg (750 mg) chewable tablet Take 1 tablet twice a day by oral route. No 1 BID Tums Extra Strength Smoothies 300 mg (750 mg) chewable tablet Take 1 tablet twice a day by oral route. [facility] zinc oxide topical ointment Apply to affected skin TID zinc oxide topical ointment Apply to affected skin TID No zinc oxide topical ointment Apply to affected skin TID [facility] acetazolami de 250 mg tablet TAKE 1 TABLET BY MOUTH TWICE DAILY acetazolami de 250 mg tablet TAKE 1 TABLET BY MOUTH TWICE DAILY No acetazolam edmond 250 mg tablet TAKE 1 TABLET BY MOUTH TWICE DAILY [facility] albuterol sulfate 2.5 mg/3 mL (0.083 %) solution for nebulizatio n Inhale 3 mL every 6 hours by inhalation route as needed. albuterol sulfate 2.5 mg/3 mL (0.083 %) solution for nebulizatio n Inhale 3 mL every 6 hours by inhalation route as needed. No albuterol sulfate 2.5 mg/3 mL (0.083 %) solution for nebulizati on Inhale 3 mL every 6 hours by inhalation route as needed. [facility] Jeri Allergy 180 mg tablet Take 1 tablet every day by oral route. Jer[facility] Allergy 180 mg tablet Take 1 tablet every day by oral route. No 1 Q1D Jeri Allergy 180 mg tablet Take 1 tablet every day by oral route. [facility] ammonium lactate 12 % topical cream ammonium lactate 12 % topical cream No ammonium lactate 12 % topical cream [facility] aspirin 81 mg tablet,kit yed release Take 1 tablet every day by oral route. aspirin 81 mg tablet,kit yed release Take 1 tablet every day by oral route. No 1 Q1D aspirin 81 mg tablet,del ayed release Take 1 tablet every day by oral route. [facility] atorvastati n 40 mg tablet Take 1 tablet every day by oral route at bedtime for 30 days. atorvastati n 40 mg tablet Take 1 tablet every day by oral route at bedtime for 30 days. No atorvastat in 40 mg tablet Take 1 tablet every day by oral route at bedtime for 30 days. [facility] benztropine 1 mg tablet Take 1 mg every day by oral route at bedtime for 30 days. benztropine 1 mg tablet Take 1 mg every day by oral route at bedtime for 30 days. No benztropin e 1 mg tablet Take 1 mg every day by oral route at bedtime for 30 days. [facility] Brovana 15 mcg/2 mL solution for nebulizatio n Inhale 2 mL twice a day by inhalation route. Brovana 15 mcg/2 mL solution for nebulizatio n Inhale 2 mL twice a day by inhalation route. No Brovana 15 mcg/2 mL solution for nebulizati on Inhale 2 mL twice a day by inhalation route. [facility] clobetasol 0.05 % topical cream APPLY A THIN LAYER TO THE AFFECTED AREA(S) BY TOPICAL ROUTE 2 TIMES PER DAY clobetasol 0.05 % topical cream APPLY A THIN LAYER TO THE AFFECTED AREA(S) BY TOPICAL ROUTE 2 TIMES PER DAY No clobetasol 0.05 % topical cream APPLY A THIN LAYER TO THE AFFECTED AREA(S) BY TOPICAL ROUTE 2 TIMES PER DAY [facility] Colace 100 mg capsule Take 1 capsule every day by oral route. Colace 100 mg capsule Take 1 capsule every day by oral route. No 1capsul e(s) Q1D Colace 100 mg capsule Take 1 capsule every day by oral route. [facility] ergocalcife rol (vitamin D2) 1,250 mcg (50,000 unit) capsule Take 1 capsule every week by oral route. ergocalcife rol (vitamin D2) 1,250 mcg (50,000 unit) capsule Take 1 capsule every week by oral route. No ergocalcif kristen (vitamin D2) 1,250 mcg (50,000 unit) capsule Take 1 capsule every week by oral route. [facility] ferrous sulfate 324 mg (65 mg iron) tablet,kit yed release Take 1 tablet every day by oral route. ferrous sulfate 324 mg (65 mg iron) tablet,kit yed release Take 1 tablet every day by oral route. No 1 Q1D ferrous sulfate 324 mg (65 mg iron) tablet,del ayed release Take 1 tablet every day by oral route. [facility] folic acid 400 mcg tablet Take 1 tablet every day by oral route. folic acid 400 mcg tablet Take 1 tablet every day by oral route. No 1 Q1D folic acid 400 mcg tablet Take 1 tablet every day by oral route. [facility] furosemide 80 mg tablet Take 1 tablet every day by oral route for 30 days. furosemide 80 mg tablet Take 1 tablet every day by oral route for 30 days. No furosemide 80 mg tablet Take 1 tablet every day by oral route for 30 days. [facility] gabapentin 300 mg capsule Take 1 capsule 3 times a day by oral route for 30 days. gabapentin 300 mg capsule Take 1 capsule 3 times a day by oral route for 30 days. No gabapentin 300 mg capsule Take 1 capsule 3 times a day by oral route for 30 days. [facility] insulin glargine (U-100) 100 unit/mL (3 mL) subcutaneou s pen Inject 46 units every day by subcutaneou s route. insulin glargine (U-100) 100 unit/mL (3 mL) subcutaneou s pen Inject 46 units every day by subcutaneou s route. No 46unit( s) Q1D insulin glargine (U-100) 100 unit/mL (3 mL) subcutaneo us pen Inject 46 units every day by subcutaneo us route. [facility] insulin glargine-yf gn (U-100) 100 unit/mL (3 mL) subcutaneou s pen insulin glargine-yf gn (U-100) 100 unit/mL (3 mL) subcutaneou s pen No insulin glargine-y fgn (U-100) 100 unit/mL (3 mL) subcutaneo us pen [facility] insulin glargine-yf gn (U-100) 100 unit/mL subcutaneou s solution insulin glargine-yf gn (U-100) 100 unit/mL subcutaneou s solution No insulin glargine-y fgn (U-100) 100 unit/mL subcutaneo us solution [facility] lactulose 10 gram/15 mL oral solution lactulose 10 gram/15 mL oral solution No lactulose 10 gram/15 mL oral solution [facility] levofloxaci n 750 mg tablet levofloxaci n 750 mg tablet No levofloxac in 750 mg tablet [facility] lidocaine 5 % topical patch lidocaine 5 % topical patch No lidocaine 5 % topical patch [facility] metformin 500 mg tablet Take 1 tablet twice a day by oral route for 30 days. metformin 500 mg tablet Take 1 tablet twice a day by oral route for 30 days. No metformin 500 mg tablet Take 1 tablet twice a day by oral route for 30 days. [facility] nitroglycer in 0.4 mg sublingual tablet GIVE 1 TABLET SUB-LINGUAL NEEDED FOR CHEST PAIN. MAY REPEAT EVERY 5 MINUTES WITH MAX OF 3 DOSES. nitroglycer in 0.4 mg sublingual tablet GIVE 1 TABLET SUB-LINGUAL NEEDED FOR CHEST PAIN. MAY REPEAT EVERY 5 MINUTES WITH MAX OF 3 DOSES. No nitroglyce rin 0.4 mg sublingual tablet GIVE 1 TABLET SUB-LINGUA L NEEDED FOR CHEST PAIN. MAY REPEAT EVERY 5 MINUTES WITH MAX OF 3 DOSES. [facility] Novolin R FlexPen 100 unit/mL (3 mL) subcutaneou s insulin pen per sliding scale Novolin R FlexPen 100 unit/mL (3 mL) subcutaneou s insulin pen per sliding scale No Novolin R FlexPen 100 unit/mL (3 mL) subcutaneo us insulin pen per sliding scale [facility] Novolin R Regular U-100 Insulin 100 unit/mL injection solution Novolin R Regular U-100 Insulin 100 unit/mL injection solution No Novolin R Regular U-100 Insulin 100 unit/mL injection solution [facility] ondansetron HCl 4 mg tablet ondansetron HCl 4 mg tablet No ondansetro n HCl 4 mg tablet [facility] potassium chloride ER 20 mEq tablet,exte nded release(par t/cryst) Take 1 tablet every day by oral route for 30 days. potassium chloride ER 20 mEq tablet,exte nded release(par t/cryst) Take 1 tablet every day by oral route for 30 days. No potassium chloride ER 20 mEq tablet,ext ended release(pa rt/cryst) Take 1 tablet every day by oral route for 30 days. [facility] prednisone 20 mg tablet prednisone 20 mg tablet No prednisone 20 mg tablet [facility] sertraline 100 mg tablet Take 1 tablet every day by oral route for 30 days. sertraline 100 mg tablet Take 1 tablet every day by oral route for 30 days. No sertraline 100 mg tablet Take 1 tablet every day by oral route for 30 days. [facility] spironolact one 25 mg tablet Take 1 tablet twice a day by oral route. spironolact one 25 mg tablet Take 1 tablet twice a day by oral route. No spironolac tone 25 mg tablet Take 1 tablet twice a day by oral route. [facility] Tums Extra Strength Smoothies 300 mg (750 mg) chewable tablet Take 1 tablet twice a day by oral route. Tums Extra Strength Smoothies 300 mg (750 mg) chewable tablet Take 1 tablet twice a day by oral route. No 1 BID Tums Extra Strength Smoothies 300 mg (750 mg) chewable tablet Take 1 tablet twice a day by oral route. [facility] zinc oxide topical ointment Apply to affected skin TID zinc oxide topical ointment Apply to affected skin TID No zinc oxide topical ointment Apply to affected skin TID [facility] Jeri Allergy 180 mg tablet Take 1 tablet every day by oral route. [facility] Allergy 180 mg tablet Take 1 tablet every day by oral route. No 1 Q1D Jeri Allergy 180 mg tablet Take 1 tablet every day by oral route. [facility] aripiprazol e 10 mg tablet Take 1 tablet every day by oral route at bedtime for 30 days. aripiprazol e 10 mg tablet Take 1 tablet every day by oral route at bedtime for 30 days. No aripiprazo le 10 mg tablet Take 1 tablet every day by oral route at bedtime for 30 days. [facility] aspirin 81 mg tablet,kit yed release Take 1 tablet every day by oral route. aspirin 81 mg tablet,kit yed release Take 1 tablet every day by oral route. No 1 Q1D aspirin 81 mg tablet,del ayed release Take 1 tablet every day by oral route. [facility] atorvastati n 40 mg tablet Take 1 tablet every day by oral route at bedtime for 30 days. atorvastati n 40 mg tablet Take 1 tablet every day by oral route at bedtime for 30 days. No atorvastat in 40 mg tablet Take 1 tablet every day by oral route at bedtime for 30 days. [facility] benztropine 1 mg tablet Take 1 mg every day by oral route at bedtime for 30 days. benztropine 1 mg tablet Take 1 mg every day by oral route at bedtime for 30 days. No benztropin e 1 mg tablet Take 1 mg every day by oral route at bedtime for 30 days. [facility] budesonide- formoterol HFA 160 mcg-4.5 mcg/actuati on aerosol inhaler Inhale 2 puffs twice a day by inhalation route. budesonide- formoterol HFA 160 mcg-4.5 mcg/actuati on aerosol inhaler Inhale 2 puffs twice a day by inhalation route. No budesonide -formotero l HFA 160 mcg-4.5 mcg/actuat ion aerosol inhaler Inhale 2 puffs twice a day by inhalation route. [facility] Colace 100 mg capsule Take 1 capsule every day by oral route. Colace 100 mg capsule Take 1 capsule every day by oral route. No 1capsul e(s) Q1D Colace 100 mg capsule Take 1 capsule every day by oral route. [facility] ergocalcife rol (vitamin D2) 1,250 mcg (50,000 unit) capsule Take 1 capsule every week by oral route. ergocalcife rol (vitamin D2) 1,250 mcg (50,000 unit) capsule Take 1 capsule every week by oral route. No ergocalcif kristen (vitamin D2) 1,250 mcg (50,000 unit) capsule Take 1 capsule every week by oral route. [facility] ferrous sulfate 324 mg (65 mg iron) tablet,kit yed release Take 1 tablet every day by oral route. ferrous sulfate 324 mg (65 mg iron) tablet,kit yed release Take 1 tablet every day by oral route. No 1 Q1D ferrous sulfate 324 mg (65 mg iron) tablet,del ayed release Take 1 tablet every day by oral route. [facility] folic acid 400 mcg tablet Take 1 tablet every day by oral route. folic acid 400 mcg tablet Take 1 tablet every day by oral route. No 1 Q1D folic acid 400 mcg tablet Take 1 tablet every day by oral route. [facility] furosemide 80 mg tablet Take 1 tablet every day by oral route for 30 days. furosemide 80 mg tablet Take 1 tablet every day by oral route for 30 days. No furosemide 80 mg tablet Take 1 tablet every day by oral route for 30 days. [facility] gabapentin 300 mg capsule Take 1 capsule 3 times a day by oral route for 30 days. gabapentin 300 mg capsule Take 1 capsule 3 times a day by oral route for 30 days. No gabapentin 300 mg capsule Take 1 capsule 3 times a day by oral route for 30 days. [facility] ipratropium bromide 0.02 % solution for inhalation Inhale 2.5 mL every 6 hours by inhalation route. ipratropium bromide 0.02 % solution for inhalation Inhale 2.5 mL every 6 hours by inhalation route. No 2.5mL Q6H ipratropiu m bromide 0.02 % solution for inhalation Inhale 2.5 mL every 6 hours by inhalation route. [facility] lactulose 10 gram/15 mL oral solution lactulose 10 gram/15 mL oral solution No lactulose 10 gram/15 mL oral solution [facility] Lantus U-100 Insulin 100 unit/mL subcutaneou s solution Inject 39 units every day by subcutaneou s route. Lantus U-100 Insulin 100 unit/mL subcutaneou s solution Inject 39 units every day by subcutaneou s route. No 39unit( s) Q1D Lantus U-100 Insulin 100 unit/mL subcutaneo us solution Inject 39 units every day by subcutaneo us route. [facility] lisinopril 5 mg tablet Take 1 tablet every day by oral route for 30 days. lisinopril 5 mg tablet Take 1 tablet every day by oral route for 30 days. No lisinopril 5 mg tablet Take 1 tablet every day by oral route for 30 days. [facility] metformin 500 mg tablet Take 1 tablet twice a day by oral route for 30 days. metformin 500 mg tablet Take 1 tablet twice a day by oral route for 30 days. No metformin 500 mg tablet Take 1 tablet twice a day by oral route for 30 days. [facility] Nystop 100,000 unit/gram topical powder Nystop 100,000 unit/gram topical powder No Nystop 100,000 unit/gram topical powder [facility] ProAir HFA 90 mcg/actuati on aerosol inhaler Inhale 2 puffs every 4 hours by inhalation route as needed. ProAir HFA 90 mcg/actuati on aerosol inhaler Inhale 2 puffs every 4 hours by inhalation route as needed. No 2puff(s ) Q4H ProAir HFA 90 mcg/actuat ion aerosol inhaler Inhale 2 puffs every 4 hours by inhalation route as needed. [facility] sertraline 100 mg tablet Take 1 tablet every day by oral route for 30 days. sertraline 100 mg tablet Take 1 tablet every day by oral route for 30 days. No sertraline 100 mg tablet Take 1 tablet every day by oral route for 30 days. [facility] spironolact one 25 mg tablet Take 1 tablet every day by oral route. spironolact one 25 mg tablet Take 1 tablet every day by oral route. No spironolac tone 25 mg tablet Take 1 tablet every day by oral route. [facility] Tums Extra Strength Smoothies 300 mg (750 mg) chewable tablet Take 1 tablet twice a day by oral route. Tums Extra Strength Smoothies 300 mg (750 mg) chewable tablet Take 1 tablet twice a day by oral route. No 1 BID Tums Extra Strength Smoothies 300 mg (750 mg) chewable tablet Take 1 tablet twice a day by oral route. [facility] zinc oxide topical ointment Apply to affected skin TID zinc oxide topical ointment Apply to affected skin TID No zinc oxide topical ointment Apply to affected skin TID [facility] Jeri Allergy 180 mg tablet Take 1 tablet every day by oral route. [facility] Allergy 180 mg tablet Take 1 tablet every day by oral route. No 1 Q1D Jeri Allergy 180 mg tablet Take 1 tablet every day by oral route. [facility] aripiprazol e 10 mg tablet Take 1 tablet every day by oral route at bedtime for 30 days. aripiprazol e 10 mg tablet Take 1 tablet every day by oral route at bedtime for 30 days. No aripiprazo le 10 mg tablet Take 1 tablet every day by oral route at bedtime for 30 days. [facility] aspirin 81 mg tablet,kit yed release Take 1 tablet every day by oral route. aspirin 81 mg tablet,kit yed release Take 1 tablet every day by oral route. No 1 Q1D aspirin 81 mg tablet,del ayed release Take 1 tablet every day by oral route. [facility] atorvastati n 40 mg tablet Take 1 tablet every day by oral route at bedtime for 30 days. atorvastati n 40 mg tablet Take 1 tablet every day by oral route at bedtime for 30 days. No atorvastat in 40 mg tablet Take 1 tablet every day by oral route at bedtime for 30 days. [facility] benztropine 1 mg tablet Take 1 mg every day by oral route at bedtime for 30 days. benztropine 1 mg tablet Take 1 mg every day by oral route at bedtime for 30 days. No benztropin e 1 mg tablet Take 1 mg every day by oral route at bedtime for 30 days. [facility] budesonide- formoterol HFA 160 mcg-4.5 mcg/actuati on aerosol inhaler Inhale 2 puffs twice a day by inhalation route. budesonide- formoterol HFA 160 mcg-4.5 mcg/actuati on aerosol inhaler Inhale 2 puffs twice a day by inhalation route. No budesonide -formotero l HFA 160 mcg-4.5 mcg/actuat ion aerosol inhaler Inhale 2 puffs twice a day by inhalation route. [facility] Colace 100 mg capsule Take 1 capsule every day by oral route. Colace 100 mg capsule Take 1 capsule every day by oral route. No 1capsul e(s) Q1D Colace 100 mg capsule Take 1 capsule every day by oral route. [facility] ergocalcife rol (vitamin D2) 1,250 mcg (50,000 unit) capsule Take 1 capsule every week by oral route. ergocalcife rol (vitamin D2) 1,250 mcg (50,000 unit) capsule Take 1 capsule every week by oral route. No ergocalcif kristen (vitamin D2) 1,250 mcg (50,000 unit) capsule Take 1 capsule every week by oral route. [facility] ferrous sulfate 324 mg (65 mg iron) tablet,kit yed release Take 1 tablet every day by oral route. ferrous sulfate 324 mg (65 mg iron) tablet,kit yed release Take 1 tablet every day by oral route. No 1 Q1D ferrous sulfate 324 mg (65 mg iron) tablet,del ayed release Take 1 tablet every day by oral route. [facility] folic acid 400 mcg tablet Take 1 tablet every day by oral route. folic acid 400 mcg tablet Take 1 tablet every day by oral route. No 1 Q1D folic acid 400 mcg tablet Take 1 tablet every day by oral route. [facility] furosemide 80 mg tablet Take 1 tablet every day by oral route for 30 days. furosemide 80 mg tablet Take 1 tablet every day by oral route for 30 days. No furosemide 80 mg tablet Take 1 tablet every day by oral route for 30 days. [facility] gabapentin 300 mg capsule Take 1 capsule 3 times a day by oral route for 30 days. gabapentin 300 mg capsule Take 1 capsule 3 times a day by oral route for 30 days. No gabapentin 300 mg capsule Take 1 capsule 3 times a day by oral route for 30 days. [facility] ipratropium bromide 0.02 % solution for inhalation Inhale 2.5 mL every 6 hours by inhalation route. ipratropium bromide 0.02 % solution for inhalation Inhale 2.5 mL every 6 hours by inhalation route. No 2.5mL Q6H ipratropiu m bromide 0.02 % solution for inhalation Inhale 2.5 mL every 6 hours by inhalation route. [facility] lactulose 10 gram/15 mL oral solution lactulose 10 gram/15 mL oral solution No lactulose 10 gram/15 mL oral solution [facility] Lantus U-100 Insulin 100 unit/mL subcutaneou s solution Inject 39 units every day by subcutaneou s route. Lantus U-100 Insulin 100 unit/mL subcutaneou s solution Inject 39 units every day by subcutaneou s route. No 39unit( s) Q1D Lantus U-100 Insulin 100 unit/mL subcutaneo us solution Inject 39 units every day by subcutaneo us route. [facility] lisinopril 5 mg tablet Take 1 tablet every day by oral route for 30 days. lisinopril 5 mg tablet Take 1 tablet every day by oral route for 30 days. No lisinopril 5 mg tablet Take 1 tablet every day by oral route for 30 days. [facility] metformin 500 mg tablet Take 1 tablet twice a day by oral route for 30 days. metformin 500 mg tablet Take 1 tablet twice a day by oral route for 30 days. No metformin 500 mg tablet Take 1 tablet twice a day by oral route for 30 days. [facility] Nystop 100,000 unit/gram topical powder Nystop 100,000 unit/gram topical powder No Nystop 100,000 unit/gram topical powder [facility] ProAir HFA 90 mcg/actuati on aerosol inhaler Inhale 2 puffs every 4 hours by inhalation route as needed. ProAir HFA 90 mcg/actuati on aerosol inhaler Inhale 2 puffs every 4 hours by inhalation route as needed. No 2puff(s ) Q4H ProAir HFA 90 mcg/actuat ion aerosol inhaler Inhale 2 puffs every 4 hours by inhalation route as needed. [facility] sertraline 100 mg tablet Take 1 tablet every day by oral route for 30 days. sertraline 100 mg tablet Take 1 tablet every day by oral route for 30 days. No sertraline 100 mg tablet Take 1 tablet every day by oral route for 30 days. [facility] spironolact one 25 mg tablet Take 1 tablet every day by oral route. spironolact one 25 mg tablet Take 1 tablet every day by oral route. No spironolac tone 25 mg tablet Take 1 tablet every day by oral route. [facility] Tums Extra Strength Smoothies 300 mg (750 mg) chewable tablet Take 1 tablet twice a day by oral route. Tums Extra Strength Smoothies 300 mg (750 mg) chewable tablet Take 1 tablet twice a day by oral route. No 1 BID Tums Extra Strength Smoothies 300 mg (750 mg) chewable tablet Take 1 tablet twice a day by oral route. [facility] zinc oxide topical ointment Apply to affected skin TID zinc oxide topical ointment Apply to affected skin TID No zinc oxide topical ointment Apply to affected skin TID [facility] Jeri Allergy 180 mg tablet Take 1 tablet every day by oral route. [facility] Allergy 180 mg tablet Take 1 tablet every day by oral route. No 1 Q1D [facility] Allergy 180 mg tablet Take 1 tablet every day by oral route. [facility] aripiprazol e 10 mg tablet Take 1 tablet every day by oral route at bedtime for 30 days. aripiprazol e 10 mg tablet Take 1 tablet every day by oral route at bedtime for 30 days. No 1 Q1D aripiprazo le 10 mg tablet Take 1 tablet every day by oral route at bedtime for 30 days. [facility] aspirin 81 mg tablet,kit yed release Take 1 tablet every day by oral route. aspirin 81 mg tablet,kit yed release Take 1 tablet every day by oral route. No 1 Q1D aspirin 81 mg tablet,del ayed release Take 1 tablet every day by oral route. [facility] atorvastati n 40 mg tablet Take 1 tablet every day by oral route at bedtime for 30 days. atorvastati n 40 mg tablet Take 1 tablet every day by oral route at bedtime for 30 days. No 1 Q1D atorvastat in 40 mg tablet Take 1 tablet every day by oral route at bedtime for 30 days. [facility] benztropine 1 mg tablet Take 1 mg every day by oral route at bedtime for 30 days. benztropine 1 mg tablet Take 1 mg every day by oral route at bedtime for 30 days. No 1mg Q1D benztropin e 1 mg tablet Take 1 mg every day by oral route at bedtime for 30 days. [facility] Colace 100 mg capsule Take 1 capsule every day by oral route. Colace 100 mg capsule Take 1 capsule every day by oral route. No 1capsul e(s) Q1D Colace 100 mg capsule Take 1 capsule every day by oral route. [facility] furosemide 80 mg tablet Take 1 tablet every day by oral route for 30 days. furosemide 80 mg tablet Take 1 tablet every day by oral route for 30 days. No 1 Q1D furosemide 80 mg tablet Take 1 tablet every day by oral route for 30 days. [facility] gabapentin 300 mg capsule Take 1 capsule 3 times a day by oral route for 30 days. gabapentin 300 mg capsule Take 1 capsule 3 times a day by oral route for 30 days. No 1capsul e(s) TID gabapentin 300 mg capsule Take 1 capsule 3 times a day by oral route for 30 days. [facility] lisinopril 5 mg tablet Take 1 tablet every day by oral route for 30 days. lisinopril 5 mg tablet Take 1 tablet every day by oral route for 30 days. No 1 Q1D lisinopril 5 mg tablet Take 1 tablet every day by oral route for 30 days. [facility] metformin 500 mg tablet Take 1 tablet twice a day by oral route for 30 days. metformin 500 mg tablet Take 1 tablet twice a day by oral route for 30 days. No 1 BID metformin 500 mg tablet Take 1 tablet twice a day by oral route for 30 days. [facility] ProAir HFA 90 mcg/actuati on aerosol inhaler Inhale 2 puffs every 4 hours by inhalation route as needed. ProAir HFA 90 mcg/actuati on aerosol inhaler Inhale 2 puffs every 4 hours by inhalation route as needed. No 2puff(s ) Q4H ProAir HFA 90 mcg/actuat ion aerosol inhaler Inhale 2 puffs every 4 hours by inhalation route as needed. [facility] sertraline 100 mg tablet Take 1 tablet every day by oral route for 30 days. sertraline 100 mg tablet Take 1 tablet every day by oral route for 30 days. No 1 Q1D sertraline 100 mg tablet Take 1 tablet every day by oral route for 30 days. [facility] Symbicort 160 mcg-4.5 mcg/actuati on HFA aerosol inhaler Inhale 2 puffs twice a day by inhalation route. Symbicort 160 mcg-4.5 mcg/actuati on HFA aerosol inhaler Inhale 2 puffs twice a day by inhalation route. No 2puff(s ) BID Symbicort 160 mcg-4.5 mcg/actuat ion HFA aerosol inhaler Inhale 2 puffs twice a day by inhalation route. [facility] Tums Extra Strength Smoothies 300 mg (750 mg) chewable tablet Take 1 tablet twice a day by oral route. Tums Extra Strength Smoothies 300 mg (750 mg) chewable tablet Take 1 tablet twice a day by oral route. No 1 BID Tums Extra Strength Smoothies 300 mg (750 mg) chewable tablet Take 1 tablet twice a day by oral route. [facility] zinc oxide 10 % topical ointment Apply 1 application every 8 hours by topical route. zinc oxide 10 % topical ointment Apply 1 application every 8 hours by topical route. No 1applic ation(s ) Q8H zinc oxide 10 % topical ointment Apply 1 applicatio n every 8 hours by topical route. [facility] Nystop 100,000 unit/gram topical powder Nystop 100,000 unit/gram topical powder No Nystop 100,000 unit/gram topical powder [facility] zinc oxide topical ointment Apply to affected skin TID zinc oxide topical ointment Apply to affected skin TID No zinc oxide topical ointment Apply to affected skin TID [facility] Jeri Allergy 180 mg tablet Take 1 tablet every day by oral route. [facility] Allergy 180 mg tablet Take 1 tablet every day by oral route. No 1 Q1D [facility] Allergy 180 mg tablet Take 1 tablet every day by oral route. [facility] aripiprazol e 10 mg tablet Take 1 tablet every day by oral route at bedtime for 30 days. aripiprazol e 10 mg tablet Take 1 tablet every day by oral route at bedtime for 30 days. No aripiprazo le 10 mg tablet Take 1 tablet every day by oral route at bedtime for 30 days. [facility] aspirin 81 mg tablet,kit yed release Take 1 tablet every day by oral route. aspirin 81 mg tablet,kit yed release Take 1 tablet every day by oral route. No 1 Q1D aspirin 81 mg tablet,del ayed release Take 1 tablet every day by oral route. [facility] atorvastati n 40 mg tablet Take 1 tablet every day by oral route at bedtime for 30 days. atorvastati n 40 mg tablet Take 1 tablet every day by oral route at bedtime for 30 days. No atorvastat in 40 mg tablet Take 1 tablet every day by oral route at bedtime for 30 days. [facility] benztropine 1 mg tablet Take 1 mg every day by oral route at bedtime for 30 days. benztropine 1 mg tablet Take 1 mg every day by oral route at bedtime for 30 days. No benztropin e 1 mg tablet Take 1 mg every day by oral route at bedtime for 30 days. [facility] budesonide- formoterol HFA 160 mcg-4.5 mcg/actuati on aerosol inhaler Inhale 2 puffs twice a day by inhalation route. budesonide- formoterol HFA 160 mcg-4.5 mcg/actuati on aerosol inhaler Inhale 2 puffs twice a day by inhalation route. No budesonide -formotero l HFA 160 mcg-4.5 mcg/actuat ion aerosol inhaler Inhale 2 puffs twice a day by inhalation route. [facility] Colace 100 mg capsule Take 1 capsule every day by oral route. Colace 100 mg capsule Take 1 capsule every day by oral route. No 1capsul e(s) Q1D Colace 100 mg capsule Take 1 capsule every day by oral route. [facility] furosemide 80 mg tablet Take 1 tablet every day by oral route for 30 days. furosemide 80 mg tablet Take 1 tablet every day by oral route for 30 days. No furosemide 80 mg tablet Take 1 tablet every day by oral route for 30 days. [facility] gabapentin 300 mg capsule Take 1 capsule 3 times a day by oral route for 30 days. gabapentin 300 mg capsule Take 1 capsule 3 times a day by oral route for 30 days. No gabapentin 300 mg capsule Take 1 capsule 3 times a day by oral route for 30 days. [facility] lisinopril 5 mg tablet Take 1 tablet every day by oral route for 30 days. lisinopril 5 mg tablet Take 1 tablet every day by oral route for 30 days. No lisinopril 5 mg tablet Take 1 tablet every day by oral route for 30 days. [facility] metformin 500 mg tablet Take 1 tablet twice a day by oral route for 30 days. metformin 500 mg tablet Take 1 tablet twice a day by oral route for 30 days. No metformin 500 mg tablet Take 1 tablet twice a day by oral route for 30 days. [facility] Nystop 100,000 unit/gram topical powder Nystop 100,000 unit/gram topical powder No Nystop 100,000 unit/gram topical powder [facility] ProAir HFA 90 mcg/actuati on aerosol inhaler Inhale 2 puffs every 4 hours by inhalation route as needed. ProAir HFA 90 mcg/actuati on aerosol inhaler Inhale 2 puffs every 4 hours by inhalation route as needed. No 2puff(s ) Q4H ProAir HFA 90 mcg/actuat ion aerosol inhaler Inhale 2 puffs every 4 hours by inhalation route as needed. [facility] sertraline 100 mg tablet Take 1 tablet every day by oral route for 30 days. sertraline 100 mg tablet Take 1 tablet every day by oral route for 30 days. No sertraline 100 mg tablet Take 1 tablet every day by oral route for 30 days. [facility] Tums Extra Strength Smoothies 300 mg (750 mg) chewable tablet Take 1 tablet twice a day by oral route. Tums Extra Strength Smoothies 300 mg (750 mg) chewable tablet Take 1 tablet twice a day by oral route. No 1 BID Tums Extra Strength Smoothies 300 mg (750 mg) chewable tablet Take 1 tablet twice a day by oral route. [facility] zinc oxide topical ointment Apply to affected skin TID zinc oxide topical ointment Apply to affected skin TID No zinc oxide topical ointment Apply to affected skin TID [facility] ergocalcife rol (vitamin D2) 1,250 mcg (50,000 unit) capsule Take 1 capsule every week by oral route. ergocalcife rol (vitamin D2) 1,250 mcg (50,000 unit) capsule Take 1 capsule every week by oral route. No 1capsul e(s) Q1W ergocalcif kristen (vitamin D2) 1,250 mcg (50,000 unit) capsule Take 1 capsule every week by oral route. [facility] folic acid 1 mg tablet Take 1 tablet every day by oral route. folic acid 1 mg tablet Take 1 tablet every day by oral route. No 1 Q1D folic acid 1 mg tablet Take 1 tablet every day by oral route. [facility] Jeri Allergy 180 mg tablet Take 1 tablet every day by oral route. [facility] Allergy 180 mg tablet Take 1 tablet every day by oral route. No 1 Q1D [facility] Allergy 180 mg tablet Take 1 tablet every day by oral route. [facility] aripiprazol e 10 mg tablet Take 1 tablet every day by oral route at bedtime for 30 days. aripiprazol e 10 mg tablet Take 1 tablet every day by oral route at bedtime for 30 days. No aripiprazo le 10 mg tablet Take 1 tablet every day by oral route at bedtime for 30 days. [facility] aspirin 81 mg tablet,kit yed release Take 1 tablet every day by oral route. aspirin 81 mg tablet,kit yed release Take 1 tablet every day by oral route. No 1 Q1D aspirin 81 mg tablet,del ayed release Take 1 tablet every day by oral route. [facility] atorvastati n 40 mg tablet Take 1 tablet every day by oral route at bedtime for 30 days. atorvastati n 40 mg tablet Take 1 tablet every day by oral route at bedtime for 30 days. No atorvastat in 40 mg tablet Take 1 tablet every day by oral route at bedtime for 30 days. [facility] benztropine 1 mg tablet Take 1 mg every day by oral route at bedtime for 30 days. benztropine 1 mg tablet Take 1 mg every day by oral route at bedtime for 30 days. No benztropin e 1 mg tablet Take 1 mg every day by oral route at bedtime for 30 days. [facility] Colace 100 mg capsule Take 1 capsule every day by oral route. Colace 100 mg capsule Take 1 capsule every day by oral route. No 1capsul e(s) Q1D Colace 100 mg capsule Take 1 capsule every day by oral route. [facility] ergocalcife rol (vitamin D2) 1,250 mcg (50,000 unit) capsule Take 1 capsule every week by oral route. ergocalcife rol (vitamin D2) 1,250 mcg (50,000 unit) capsule Take 1 capsule every week by oral route. No 1capsul e(s) Q1W ergocalcif kristen (vitamin D2) 1,250 mcg (50,000 unit) capsule Take 1 capsule every week by oral route. [facility] ferrous sulfate 324 mg (65 mg iron) tablet,kit yed release Take 1 tablet every day by oral route. ferrous sulfate 324 mg (65 mg iron) tablet,kit yed release Take 1 tablet every day by oral route. No 1 Q1D ferrous sulfate 324 mg (65 mg iron) tablet,del ayed release Take 1 tablet every day by oral route. [facility] folic acid 400 mcg tablet Take 1 tablet every day by oral route. folic acid 400 mcg tablet Take 1 tablet every day by oral route. No 1 Q1D folic acid 400 mcg tablet Take 1 tablet every day by oral route. [facility] furosemide 80 mg tablet Take 1 tablet every day by oral route for 30 days. furosemide 80 mg tablet Take 1 tablet every day by oral route for 30 days. No furosemide 80 mg tablet Take 1 tablet every day by oral route for 30 days. [facility] gabapentin 300 mg capsule Take 1 capsule 3 times a day by oral route for 30 days. gabapentin 300 mg capsule Take 1 capsule 3 times a day by oral route for 30 days. No gabapentin 300 mg capsule Take 1 capsule 3 times a day by oral route for 30 days. [facility] ipratropium bromide 0.02 % solution for inhalation Inhale 2.5 mL every 6 hours by inhalation route. ipratropium bromide 0.02 % solution for inhalation Inhale 2.5 mL every 6 hours by inhalation route. No 2.5mL Q6H ipratropiu m bromide 0.02 % solution for inhalation Inhale 2.5 mL every 6 hours by inhalation route. [facility] Lantus U-100 Insulin 100 unit/mL subcutaneou s solution Inject 35 units every day by subcutaneou s route. Lantus U-100 Insulin 100 unit/mL subcutaneou s solution Inject 35 units every day by subcutaneou s route. No 35unit( s) Q1D Lantus U-100 Insulin 100 unit/mL subcutaneo us solution Inject 35 units every day by subcutaneo us route. [facility] lisinopril 5 mg tablet Take 1 tablet every day by oral route for 30 days. lisinopril 5 mg tablet Take 1 tablet every day by oral route for 30 days. No lisinopril 5 mg tablet Take 1 tablet every day by oral route for 30 days. [facility] metformin 500 mg tablet Take 1 tablet twice a day by oral route for 30 days. metformin 500 mg tablet Take 1 tablet twice a day by oral route for 30 days. No metformin 500 mg tablet Take 1 tablet twice a day by oral route for 30 days. [facility] Nystop 100,000 unit/gram topical powder Nystop 100,000 unit/gram topical powder No Nystop 100,000 unit/gram topical powder [facility] prednisone 10 mg tablet Take 1 tablet twice a day by oral route. prednisone 10 mg tablet Take 1 tablet twice a day by oral route. No 1 BID prednisone 10 mg tablet Take 1 tablet twice a day by oral route. [facility] ProAir HFA 90 mcg/actuati on aerosol inhaler Inhale 2 puffs every 4 hours by inhalation route as needed. ProAir HFA 90 mcg/actuati on aerosol inhaler Inhale 2 puffs every 4 hours by inhalation route as needed. No 2puff(s ) Q4H ProAir HFA 90 mcg/actuat ion aerosol inhaler Inhale 2 puffs every 4 hours by inhalation route as needed. [facility] sertraline 100 mg tablet Take 1 tablet every day by oral route for 30 days. sertraline 100 mg tablet Take 1 tablet every day by oral route for 30 days. No sertraline 100 mg tablet Take 1 tablet every day by oral route for 30 days. [facility] spironolact one 25 mg tablet Take 1 tablet every day by oral route. spironolact one 25 mg tablet Take 1 tablet every day by oral route. No 1 Q1D spironolac tone 25 mg tablet Take 1 tablet every day by oral route. [facility] Symbicort 160 mcg-4.5 mcg/actuati on HFA aerosol inhaler Inhale 2 puffs twice a day by inhalation route. Symbicort 160 mcg-4.5 mcg/actuati on HFA aerosol inhaler Inhale 2 puffs twice a day by inhalation route. No 2puff(s ) BID Symbicort 160 mcg-4.5 mcg/actuat ion HFA aerosol inhaler Inhale 2 puffs twice a day by inhalation route. [facility] Tums Extra Strength Smoothies 300 mg (750 mg) chewable tablet Take 1 tablet twice a day by oral route. Tums Extra Strength Smoothies 300 mg (750 mg) chewable tablet Take 1 tablet twice a day by oral route. No 1 BID Tums Extra Strength Smoothies 300 mg (750 mg) chewable tablet Take 1 tablet twice a day by oral route. [facility] zinc oxide topical ointment Apply to affected skin TID zinc oxide topical ointment Apply to affected skin TID No zinc oxide topical ointment Apply to affected skin TID [facility] Jeri Allergy 180 mg tablet Take 1 tablet every day by oral route. [facility] Allergy 180 mg tablet Take 1 tablet every day by oral route. No 1 Q1D [facility] Allergy 180 mg tablet Take 1 tablet every day by oral route. [facility] aripiprazol e 10 mg tablet Take 1 tablet every day by oral route at bedtime for 30 days. aripiprazol e 10 mg tablet Take 1 tablet every day by oral route at bedtime for 30 days. No aripiprazo le 10 mg tablet Take 1 tablet every day by oral route at bedtime for 30 days. [facility] aspirin 81 mg tablet,kit yed release Take 1 tablet every day by oral route. aspirin 81 mg tablet,kit yed release Take 1 tablet every day by oral route. No 1 Q1D aspirin 81 mg tablet,del ayed release Take 1 tablet every day by oral route. [facility] atorvastati n 40 mg tablet Take 1 tablet every day by oral route at bedtime for 30 days. atorvastati n 40 mg tablet Take 1 tablet every day by oral route at bedtime for 30 days. No atorvastat in 40 mg tablet Take 1 tablet every day by oral route at bedtime for 30 days. [facility] benztropine 1 mg tablet Take 1 mg every day by oral route at bedtime for 30 days. benztropine 1 mg tablet Take 1 mg every day by oral route at bedtime for 30 days. No benztropin e 1 mg tablet Take 1 mg every day by oral route at bedtime for 30 days. [facility] Colace 100 mg capsule Take 1 capsule every day by oral route. Colace 100 mg capsule Take 1 capsule every day by oral route. No 1capsul e(s) Q1D Colace 100 mg capsule Take 1 capsule every day by oral route. [facility] ergocalcife rol (vitamin D2) 1,250 mcg (50,000 unit) capsule Take 1 capsule every week by oral route. ergocalcife rol (vitamin D2) 1,250 mcg (50,000 unit) capsule Take 1 capsule every week by oral route. No 1capsul e(s) Q1W ergocalcif kristen (vitamin D2) 1,250 mcg (50,000 unit) capsule Take 1 capsule every week by oral route. [facility] ferrous sulfate 324 mg (65 mg iron) tablet,kit yed release Take 1 tablet every day by oral route. ferrous sulfate 324 mg (65 mg iron) tablet,kit yed release Take 1 tablet every day by oral route. No 1 Q1D ferrous sulfate 324 mg (65 mg iron) tablet,del ayed release Take 1 tablet every day by oral route. [facility] folic acid 400 mcg tablet Take 1 tablet every day by oral route. folic acid 400 mcg tablet Take 1 tablet every day by oral route. No 1 Q1D folic acid 400 mcg tablet Take 1 tablet every day by oral route. [facility] furosemide 80 mg tablet Take 1 tablet every day by oral route for 30 days. furosemide 80 mg tablet Take 1 tablet every day by oral route for 30 days. No furosemide 80 mg tablet Take 1 tablet every day by oral route for 30 days. [facility] gabapentin 300 mg capsule Take 1 capsule 3 times a day by oral route for 30 days. gabapentin 300 mg capsule Take 1 capsule 3 times a day by oral route for 30 days. No gabapentin 300 mg capsule Take 1 capsule 3 times a day by oral route for 30 days. [facility] ipratropium bromide 0.02 % solution for inhalation Inhale 2.5 mL every 6 hours by inhalation route. ipratropium bromide 0.02 % solution for inhalation Inhale 2.5 mL every 6 hours by inhalation route. No 2.5mL Q6H ipratropiu m bromide 0.02 % solution for inhalation Inhale 2.5 mL every 6 hours by inhalation route. [facility] Lantus U-100 Insulin 100 unit/mL subcutaneou s solution Inject 35 units every day by subcutaneou s route. Lantus U-100 Insulin 100 unit/mL subcutaneou s solution Inject 35 units every day by subcutaneou s route. No 35unit( s) Q1D Lantus U-100 Insulin 100 unit/mL subcutaneo us solution Inject 35 units every day by subcutaneo us route. [facility] lisinopril 5 mg tablet Take 1 tablet every day by oral route for 30 days. lisinopril 5 mg tablet Take 1 tablet every day by oral route for 30 days. No lisinopril 5 mg tablet Take 1 tablet every day by oral route for 30 days. [facility] metformin 500 mg tablet Take 1 tablet twice a day by oral route for 30 days. metformin 500 mg tablet Take 1 tablet twice a day by oral route for 30 days. No metformin 500 mg tablet Take 1 tablet twice a day by oral route for 30 days. [facility] Nystop 100,000 unit/gram topical powder Nystop 100,000 unit/gram topical powder No Nystop 100,000 unit/gram topical powder [facility] prednisone 10 mg tablet Take 1 tablet twice a day by oral route. prednisone 10 mg tablet Take 1 tablet twice a day by oral route. No 1 BID prednisone 10 mg tablet Take 1 tablet twice a day by oral route. [facility] ProAir HFA 90 mcg/actuati on aerosol inhaler Inhale 2 puffs every 4 hours by inhalation route as needed. ProAir HFA 90 mcg/actuati on aerosol inhaler Inhale 2 puffs every 4 hours by inhalation route as needed. No 2puff(s ) Q4H ProAir HFA 90 mcg/actuat ion aerosol inhaler Inhale 2 puffs every 4 hours by inhalation route as needed. [facility] sertraline 100 mg tablet Take 1 tablet every day by oral route for 30 days. sertraline 100 mg tablet Take 1 tablet every day by oral route for 30 days. No sertraline 100 mg tablet Take 1 tablet every day by oral route for 30 days. [facility] spironolact one 25 mg tablet Take 1 tablet every day by oral route. spironolact one 25 mg tablet Take 1 tablet every day by oral route. No 1 Q1D spironolac tone 25 mg tablet Take 1 tablet every day by oral route. [facility] Symbicort 160 mcg-4.5 mcg/actuati on HFA aerosol inhaler Inhale 2 puffs twice a day by inhalation route. Symbicort 160 mcg-4.5 mcg/actuati on HFA aerosol inhaler Inhale 2 puffs twice a day by inhalation route. No 2puff(s ) BID Symbicort 160 mcg-4.5 mcg/actuat ion HFA aerosol inhaler Inhale 2 puffs twice a day by inhalation route. [facility] Tums Extra Strength Smoothies 300 mg (750 mg) chewable tablet Take 1 tablet twice a day by oral route. Tums Extra Strength Smoothies 300 mg (750 mg) chewable tablet Take 1 tablet twice a day by oral route. No 1 BID Tums Extra Strength Smoothies 300 mg (750 mg) chewable tablet Take 1 tablet twice a day by oral route. [facility] zinc oxide topical ointment Apply to affected skin TID zinc oxide topical ointment Apply to affected skin TID No zinc oxide topical ointment Apply to affected skin TID [facility] Jeri Allergy 180 mg tablet Take 1 tablet every day by oral route. Jeri Allergy 180 mg tablet Take 1 tablet every day by oral route. No 1 Q1D Jeri Allergy 180 mg tablet Take 1 tablet every day by oral route. [facility] aripiprazol e 10 mg tablet Take 1 tablet every day by oral route at bedtime for 30 days. aripiprazol e 10 mg tablet Take 1 tablet every day by oral route at bedtime for 30 days. No aripiprazo le 10 mg tablet Take 1 tablet every day by oral route at bedtime for 30 days. [facility] aspirin 81 mg tablet,kit yed release Take 1 tablet every day by oral route. aspirin 81 mg tablet,kit yed release Take 1 tablet every day by oral route. No 1 Q1D aspirin 81 mg tablet,del ayed release Take 1 tablet every day by oral route. [facility] atorvastati n 40 mg tablet Take 1 tablet every day by oral route at bedtime for 30 days. atorvastati n 40 mg tablet Take 1 tablet every day by oral route at bedtime for 30 days. No atorvastat in 40 mg tablet Take 1 tablet every day by oral route at bedtime for 30 days. [facility] benztropine 1 mg tablet Take 1 mg every day by oral route at bedtime for 30 days. benztropine 1 mg tablet Take 1 mg every day by oral route at bedtime for 30 days. No benztropin e 1 mg tablet Take 1 mg every day by oral route at bedtime for 30 days. [facility] Colace 100 mg capsule Take 1 capsule every day by oral route. Colace 100 mg capsule Take 1 capsule every day by oral route. No 1capsul e(s) Q1D Colace 100 mg capsule Take 1 capsule every day by oral route. [facility] ergocalcife rol (vitamin D2) 1,250 mcg (50,000 unit) capsule Take 1 capsule every week by oral route. ergocalcife rol (vitamin D2) 1,250 mcg (50,000 unit) capsule Take 1 capsule every week by oral route. No 1capsul e(s) Q1W ergocalcif kristen (vitamin D2) 1,250 mcg (50,000 unit) capsule Take 1 capsule every week by oral route. [facility] ferrous sulfate 324 mg (65 mg iron) tablet,kit yed release Take 1 tablet every day by oral route. ferrous sulfate 324 mg (65 mg iron) tablet,kit yed release Take 1 tablet every day by oral route. No 1 Q1D ferrous sulfate 324 mg (65 mg iron) tablet,del ayed release Take 1 tablet every day by oral route. [facility] folic acid 400 mcg tablet Take 1 tablet every day by oral route. folic acid 400 mcg tablet Take 1 tablet every day by oral route. No 1 Q1D folic acid 400 mcg tablet Take 1 tablet every day by oral route. [facility] furosemide 80 mg tablet Take 1 tablet every day by oral route for 30 days. furosemide 80 mg tablet Take 1 tablet every day by oral route for 30 days. No furosemide 80 mg tablet Take 1 tablet every day by oral route for 30 days. [facility] gabapentin 300 mg capsule Take 1 capsule 3 times a day by oral route for 30 days. gabapentin 300 mg capsule Take 1 capsule 3 times a day by oral route for 30 days. No gabapentin 300 mg capsule Take 1 capsule 3 times a day by oral route for 30 days. [facility] ipratropium bromide 0.02 % solution for inhalation Inhale 2.5 mL every 6 hours by inhalation route. ipratropium bromide 0.02 % solution for inhalation Inhale 2.5 mL every 6 hours by inhalation route. No 2.5mL Q6H ipratropiu m bromide 0.02 % solution for inhalation Inhale 2.5 mL every 6 hours by inhalation route. [facility] Lantus U-100 Insulin 100 unit/mL subcutaneou s solution Inject 35 units every day by subcutaneou s route. Lantus U-100 Insulin 100 unit/mL subcutaneou s solution Inject 35 units every day by subcutaneou s route. No 35unit( s) Q1D Lantus U-100 Insulin 100 unit/mL subcutaneo us solution Inject 35 units every day by subcutaneo us route. [facility] lisinopril 5 mg tablet Take 1 tablet every day by oral route for 30 days. lisinopril 5 mg tablet Take 1 tablet every day by oral route for 30 days. No lisinopril 5 mg tablet Take 1 tablet every day by oral route for 30 days. [facility] metformin 500 mg tablet Take 1 tablet twice a day by oral route for 30 days. metformin 500 mg tablet Take 1 tablet twice a day by oral route for 30 days. No metformin 500 mg tablet Take 1 tablet twice a day by oral route for 30 days. [facility] Nystop 100,000 unit/gram topical powder Nystop 100,000 unit/gram topical powder No Nystop 100,000 unit/gram topical powder [facility] prednisone 10 mg tablet Take 1 tablet twice a day by oral route. prednisone 10 mg tablet Take 1 tablet twice a day by oral route. No 1 BID prednisone 10 mg tablet Take 1 tablet twice a day by oral route. [facility] ProAir HFA 90 mcg/actuati on aerosol inhaler Inhale 2 puffs every 4 hours by inhalation route as needed. ProAir HFA 90 mcg/actuati on aerosol inhaler Inhale 2 puffs every 4 hours by inhalation route as needed. No 2puff(s ) Q4H ProAir HFA 90 mcg/actuat ion aerosol inhaler Inhale 2 puffs every 4 hours by inhalation route as needed. [facility] sertraline 100 mg tablet Take 1 tablet every day by oral route for 30 days. sertraline 100 mg tablet Take 1 tablet every day by oral route for 30 days. No sertraline 100 mg tablet Take 1 tablet every day by oral route for 30 days. [facility] spironolact one 25 mg tablet Take 1 tablet every day by oral route. spironolact one 25 mg tablet Take 1 tablet every day by oral route. No 1 Q1D spironolac tone 25 mg tablet Take 1 tablet every day by oral route. [facility] Symbicort 160 mcg-4.5 mcg/actuati on HFA aerosol inhaler Inhale 2 puffs twice a day by inhalation route. Symbicort 160 mcg-4.5 mcg/actuati on HFA aerosol inhaler Inhale 2 puffs twice a day by inhalation route. No 2puff(s ) BID Symbicort 160 mcg-4.5 mcg/actuat ion HFA aerosol inhaler Inhale 2 puffs twice a day by inhalation route. [facility] Tums Extra Strength Smoothies 300 mg (750 mg) chewable tablet Take 1 tablet twice a day by oral route. Tums Extra Strength Smoothies 300 mg (750 mg) chewable tablet Take 1 tablet twice a day by oral route. No 1 BID Tums Extra Strength Smoothies 300 mg (750 mg) chewable tablet Take 1 tablet twice a day by oral route. [facility] zinc oxide topical ointment Apply to affected skin TID zinc oxide topical ointment Apply to affected skin TID No zinc oxide topical ointment Apply to affected skin TID [facility] Jeri Allergy 180 mg tablet Take 1 tablet every day by oral route. Jeri Allergy 180 mg tablet Take 1 tablet every day by oral route. No 1 Q1D Jeri Allergy 180 mg tablet Take 1 tablet every day by oral route. [facility] aripiprazol e 10 mg tablet Take 1 tablet every day by oral route at bedtime for 30 days. aripiprazol e 10 mg tablet Take 1 tablet every day by oral route at bedtime for 30 days. No aripiprazo le 10 mg tablet Take 1 tablet every day by oral route at bedtime for 30 days. [facility] aspirin 81 mg tablet,kit yed release Take 1 tablet every day by oral route. aspirin 81 mg tablet,kit yed release Take 1 tablet every day by oral route. No 1 Q1D aspirin 81 mg tablet,del ayed release Take 1 tablet every day by oral route. [facility] atorvastati n 40 mg tablet Take 1 tablet every day by oral route at bedtime for 30 days. atorvastati n 40 mg tablet Take 1 tablet every day by oral route at bedtime for 30 days. No atorvastat in 40 mg tablet Take 1 tablet every day by oral route at bedtime for 30 days. [facility] benztropine 1 mg tablet Take 1 mg every day by oral route at bedtime for 30 days. benztropine 1 mg tablet Take 1 mg every day by oral route at bedtime for 30 days. No benztropin e 1 mg tablet Take 1 mg every day by oral route at bedtime for 30 days. [facility] Colace 100 mg capsule Take 1 capsule every day by oral route. Colace 100 mg capsule Take 1 capsule every day by oral route. No 1capsul e(s) Q1D Colace 100 mg capsule Take 1 capsule every day by oral route. [facility] ergocalcife rol (vitamin D2) 1,250 mcg (50,000 unit) capsule Take 1 capsule every week by oral route. ergocalcife rol (vitamin D2) 1,250 mcg (50,000 unit) capsule Take 1 capsule every week by oral route. No 1capsul e(s) Q1W ergocalcif kristen (vitamin D2) 1,250 mcg (50,000 unit) capsule Take 1 capsule every week by oral route. [facility] ferrous sulfate 324 mg (65 mg iron) tablet,kit yed release Take 1 tablet every day by oral route. ferrous sulfate 324 mg (65 mg iron) tablet,kit yed release Take 1 tablet every day by oral route. No 1 Q1D ferrous sulfate 324 mg (65 mg iron) tablet,del ayed release Take 1 tablet every day by oral route. [facility] folic acid 400 mcg tablet Take 1 tablet every day by oral route. folic acid 400 mcg tablet Take 1 tablet every day by oral route. No 1 Q1D folic acid 400 mcg tablet Take 1 tablet every day by oral route. [facility] furosemide 80 mg tablet Take 1 tablet every day by oral route for 30 days. furosemide 80 mg tablet Take 1 tablet every day by oral route for 30 days. No furosemide 80 mg tablet Take 1 tablet every day by oral route for 30 days. [facility] gabapentin 300 mg capsule Take 1 capsule 3 times a day by oral route for 30 days. gabapentin 300 mg capsule Take 1 capsule 3 times a day by oral route for 30 days. No gabapentin 300 mg capsule Take 1 capsule 3 times a day by oral route for 30 days. [facility] ipratropium bromide 0.02 % solution for inhalation Inhale 2.5 mL every 6 hours by inhalation route. ipratropium bromide 0.02 % solution for inhalation Inhale 2.5 mL every 6 hours by inhalation route. No 2.5mL Q6H ipratropiu m bromide 0.02 % solution for inhalation Inhale 2.5 mL every 6 hours by inhalation route. [facility] Lantus U-100 Insulin 100 unit/mL subcutaneou s solution Inject 35 units every day by subcutaneou s route. Lantus U-100 Insulin 100 unit/mL subcutaneou s solution Inject 35 units every day by subcutaneou s route. No 35unit( s) Q1D Lantus U-100 Insulin 100 unit/mL subcutaneo us solution Inject 35 units every day by subcutaneo us route. [facility] lisinopril 5 mg tablet Take 1 tablet every day by oral route for 30 days. lisinopril 5 mg tablet Take 1 tablet every day by oral route for 30 days. No lisinopril 5 mg tablet Take 1 tablet every day by oral route for 30 days. [facility] metformin 500 mg tablet Take 1 tablet twice a day by oral route for 30 days. metformin 500 mg tablet Take 1 tablet twice a day by oral route for 30 days. No metformin 500 mg tablet Take 1 tablet twice a day by oral route for 30 days. [facility] Nystop 100,000 unit/gram topical powder Nystop 100,000 unit/gram topical powder No Nystop 100,000 unit/gram topical powder [facility] prednisone 10 mg tablet Take 1 tablet twice a day by oral route. prednisone 10 mg tablet Take 1 tablet twice a day by oral route. No 1 BID prednisone 10 mg tablet Take 1 tablet twice a day by oral route. [facility] ProAir HFA 90 mcg/actuati on aerosol inhaler Inhale 2 puffs every 4 hours by inhalation route as needed. ProAir HFA 90 mcg/actuati on aerosol inhaler Inhale 2 puffs every 4 hours by inhalation route as needed. No 2puff(s ) Q4H ProAir HFA 90 mcg/actuat ion aerosol inhaler Inhale 2 puffs every 4 hours by inhalation route as needed. [facility] sertraline 100 mg tablet Take 1 tablet every day by oral route for 30 days. sertraline 100 mg tablet Take 1 tablet every day by oral route for 30 days. No sertraline 100 mg tablet Take 1 tablet every day by oral route for 30 days. [facility] spironolact one 25 mg tablet Take 1 tablet every day by oral route. spironolact one 25 mg tablet Take 1 tablet every day by oral route. No 1 Q1D spironolac tone 25 mg tablet Take 1 tablet every day by oral route. [facility] Symbicort 160 mcg-4.5 mcg/actuati on HFA aerosol inhaler Inhale 2 puffs twice a day by inhalation route. Symbicort 160 mcg-4.5 mcg/actuati on HFA aerosol inhaler Inhale 2 puffs twice a day by inhalation route. No 2puff(s ) BID Symbicort 160 mcg-4.5 mcg/actuat ion HFA aerosol inhaler Inhale 2 puffs twice a day by inhalation route. [facility] Tums Extra Strength Smoothies 300 mg (750 mg) chewable tablet Take 1 tablet twice a day by oral route. Tums Extra Strength Smoothies 300 mg (750 mg) chewable tablet Take 1 tablet twice a day by oral route. No 1 BID Tums Extra Strength Smoothies 300 mg (750 mg) chewable tablet Take 1 tablet twice a day by oral route. [facility] zinc oxide topical ointment Apply to affected skin TID zinc oxide topical ointment Apply to affected skin TID No zinc oxide topical ointment Apply to affected skin TID [facility] Lantus U-100 Insulin 100 unit/mL subcutaneou s solution Inject 35 units every day by subcutaneou s route. Lantus U-100 Insulin 100 unit/mL subcutaneou s solution Inject 35 units every day by subcutaneou s route. No 35unit( s) Q1D Lantus U-100 Insulin 100 unit/mL subcutaneo us solution Inject 35 units every day by subcutaneo us route. [facility] lisinopril 5 mg tablet Take 1 tablet every day by oral route for 30 days. lisinopril 5 mg tablet Take 1 tablet every day by oral route for 30 days. No lisinopril 5 mg tablet Take 1 tablet every day by oral route for 30 days. [facility] metformin 500 mg tablet Take 1 tablet twice a day by oral route for 30 days. metformin 500 mg tablet Take 1 tablet twice a day by oral route for 30 days. No metformin 500 mg tablet Take 1 tablet twice a day by oral route for 30 days. [facility] Nystop 100,000 unit/gram topical powder Nystop 100,000 unit/gram topical powder No Nystop 100,000 unit/gram topical powder [facility] prednisone 10 mg tablet Take 1 tablet twice a day by oral route. prednisone 10 mg tablet Take 1 tablet twice a day by oral route. No 1 BID prednisone 10 mg tablet Take 1 tablet twice a day by oral route. [facility] ProAir HFA 90 mcg/actuati on aerosol inhaler Inhale 2 puffs every 4 hours by inhalation route as needed. ProAir HFA 90 mcg/actuati on aerosol inhaler Inhale 2 puffs every 4 hours by inhalation route as needed. No 2puff(s ) Q4H ProAir HFA 90 mcg/actuat ion aerosol inhaler Inhale 2 puffs every 4 hours by inhalation route as needed. [facility] sertraline 100 mg tablet Take 1 tablet every day by oral route for 30 days. sertraline 100 mg tablet Take 1 tablet every day by oral route for 30 days. No sertraline 100 mg tablet Take 1 tablet every day by oral route for 30 days. [facility] spironolact one 25 mg tablet Take 1 tablet every day by oral route. spironolact one 25 mg tablet Take 1 tablet every day by oral route. No 1 Q1D spironolac tone 25 mg tablet Take 1 tablet every day by oral route. [facility] Symbicort 160 mcg-4.5 mcg/actuati on HFA aerosol inhaler Inhale 2 puffs twice a day by inhalation route. Symbicort 160 mcg-4.5 mcg/actuati on HFA aerosol inhaler Inhale 2 puffs twice a day by inhalation route. No 2puff(s ) BID Symbicort 160 mcg-4.5 mcg/actuat ion HFA aerosol inhaler Inhale 2 puffs twice a day by inhalation route. [facility] Tums Extra Strength Smoothies 300 mg (750 mg) chewable tablet Take 1 tablet twice a day by oral route. Tums Extra Strength Smoothies 300 mg (750 mg) chewable tablet Take 1 tablet twice a day by oral route. No 1 BID Tums Extra Strength Smoothies 300 mg (750 mg) chewable tablet Take 1 tablet twice a day by oral route. [facility] zinc oxide topical ointment Apply to affected skin TID zinc oxide topical ointment Apply to affected skin TID No zinc oxide topical ointment Apply to affected skin TID [facility] Jeri Allergy 180 mg tablet Take 1 tablet every day by oral route. Jeri Allergy 180 mg tablet Take 1 tablet every day by oral route. No 1 Q1D Jeri Allergy 180 mg tablet Take 1 tablet every day by oral route. [facility] aripiprazol e 10 mg tablet Take 1 tablet every day by oral route at bedtime for 30 days. aripiprazol e 10 mg tablet Take 1 tablet every day by oral route at bedtime for 30 days. No aripiprazo le 10 mg tablet Take 1 tablet every day by oral route at bedtime for 30 days. [facility] aspirin 81 mg tablet,kit yed release Take 1 tablet every day by oral route. aspirin 81 mg tablet,kit yed release Take 1 tablet every day by oral route. No 1 Q1D aspirin 81 mg tablet,del ayed release Take 1 tablet every day by oral route. [facility] atorvastati n 40 mg tablet Take 1 tablet every day by oral route at bedtime for 30 days. atorvastati n 40 mg tablet Take 1 tablet every day by oral route at bedtime for 30 days. No atorvastat in 40 mg tablet Take 1 tablet every day by oral route at bedtime for 30 days. [facility] benztropine 1 mg tablet Take 1 mg every day by oral route at bedtime for 30 days. benztropine 1 mg tablet Take 1 mg every day by oral route at bedtime for 30 days. No benztropin e 1 mg tablet Take 1 mg every day by oral route at bedtime for 30 days. [facility] Colace 100 mg capsule Take 1 capsule every day by oral route. Colace 100 mg capsule Take 1 capsule every day by oral route. No 1capsul e(s) Q1D Colace 100 mg capsule Take 1 capsule every day by oral route. [facility] ergocalcife rol (vitamin D2) 1,250 mcg (50,000 unit) capsule Take 1 capsule every week by oral route. ergocalcife rol (vitamin D2) 1,250 mcg (50,000 unit) capsule Take 1 capsule every week by oral route. No 1capsul e(s) Q1W ergocalcif kristen (vitamin D2) 1,250 mcg (50,000 unit) capsule Take 1 capsule every week by oral route. [facility] ferrous sulfate 324 mg (65 mg iron) tablet,kit yed release Take 1 tablet every day by oral route. ferrous sulfate 324 mg (65 mg iron) tablet,kit yed release Take 1 tablet every day by oral route. No 1 Q1D ferrous sulfate 324 mg (65 mg iron) tablet,del ayed release Take 1 tablet every day by oral route. [facility] folic acid 400 mcg tablet Take 1 tablet every day by oral route. folic acid 400 mcg tablet Take 1 tablet every day by oral route. No 1 Q1D folic acid 400 mcg tablet Take 1 tablet every day by oral route. [facility] furosemide 80 mg tablet Take 1 tablet every day by oral route for 30 days. furosemide 80 mg tablet Take 1 tablet every day by oral route for 30 days. No furosemide 80 mg tablet Take 1 tablet every day by oral route for 30 days. [facility] gabapentin 300 mg capsule Take 1 capsule 3 times a day by oral route for 30 days. gabapentin 300 mg capsule Take 1 capsule 3 times a day by oral route for 30 days. No gabapentin 300 mg capsule Take 1 capsule 3 times a day by oral route for 30 days. [facility] ipratropium bromide 0.02 % solution for inhalation Inhale 2.5 mL every 6 hours by inhalation route. ipratropium bromide 0.02 % solution for inhalation Inhale 2.5 mL every 6 hours by inhalation route. No 2.5mL Q6H ipratropiu m bromide 0.02 % solution for inhalation Inhale 2.5 mL every 6 hours by inhalation route. [facility] Lantus U-100 Insulin 100 unit/mL subcutaneou s solution Inject 35 units every day by subcutaneou s route. Lantus U-100 Insulin 100 unit/mL subcutaneou s solution Inject 35 units every day by subcutaneou s route. No 35unit( s) Q1D Lantus U-100 Insulin 100 unit/mL subcutaneo us solution Inject 35 units every day by subcutaneo us route. [facility] lisinopril 5 mg tablet Take 1 tablet every day by oral route for 30 days. lisinopril 5 mg tablet Take 1 tablet every day by oral route for 30 days. No lisinopril 5 mg tablet Take 1 tablet every day by oral route for 30 days. [facility] metformin 500 mg tablet Take 1 tablet twice a day by oral route for 30 days. metformin 500 mg tablet Take 1 tablet twice a day by oral route for 30 days. No metformin 500 mg tablet Take 1 tablet twice a day by oral route for 30 days. [facility] Nystop 100,000 unit/gram topical powder Nystop 100,000 unit/gram topical powder No Nystop 100,000 unit/gram topical powder [facility] prednisone 10 mg tablet Take 1 tablet twice a day by oral route. prednisone 10 mg tablet Take 1 tablet twice a day by oral route. No 1 BID prednisone 10 mg tablet Take 1 tablet twice a day by oral route. [facility] ProAir HFA 90 mcg/actuati on aerosol inhaler Inhale 2 puffs every 4 hours by inhalation route as needed. ProAir HFA 90 mcg/actuati on aerosol inhaler Inhale 2 puffs every 4 hours by inhalation route as needed. No 2puff(s ) Q4H ProAir HFA 90 mcg/actuat ion aerosol inhaler Inhale 2 puffs every 4 hours by inhalation route as needed. [facility] sertraline 100 mg tablet Take 1 tablet every day by oral route for 30 days. sertraline 100 mg tablet Take 1 tablet every day by oral route for 30 days. No sertraline 100 mg tablet Take 1 tablet every day by oral route for 30 days. [facility] spironolact one 25 mg tablet Take 1 tablet every day by oral route. spironolact one 25 mg tablet Take 1 tablet every day by oral route. No 1 Q1D spironolac tone 25 mg tablet Take 1 tablet every day by oral route. [facility] Symbicort 160 mcg-4.5 mcg/actuati on HFA aerosol inhaler Inhale 2 puffs twice a day by inhalation route. Symbicort 160 mcg-4.5 mcg/actuati on HFA aerosol inhaler Inhale 2 puffs twice a day by inhalation route. No 2puff(s ) BID Symbicort 160 mcg-4.5 mcg/actuat ion HFA aerosol inhaler Inhale 2 puffs twice a day by inhalation route. [facility] Tums Extra Strength Smoothies 300 mg (750 mg) chewable tablet Take 1 tablet twice a day by oral route. Tums Extra Strength Smoothies 300 mg (750 mg) chewable tablet Take 1 tablet twice a day by oral route. No 1 BID Tums Extra Strength Smoothies 300 mg (750 mg) chewable tablet Take 1 tablet twice a day by oral route. [facility] zinc oxide topical ointment Apply to affected skin TID zinc oxide topical ointment Apply to affected skin TID No zinc oxide topical ointment Apply to affected skin TID [facility] Jeri Allergy 180 mg tablet Take 1 tablet every day by oral route. [facility] Allergy 180 mg tablet Take 1 tablet every day by oral route. No 1 Q1D Jeri Allergy 180 mg tablet Take 1 tablet every day by oral route. [facility] aripiprazol e 10 mg tablet Take 1 tablet every day by oral route at bedtime for 30 days. aripiprazol e 10 mg tablet Take 1 tablet every day by oral route at bedtime for 30 days. No aripiprazo le 10 mg tablet Take 1 tablet every day by oral route at bedtime for 30 days. [facility] aspirin 81 mg tablet,kit yed release Take 1 tablet every day by oral route. aspirin 81 mg tablet,kit yed release Take 1 tablet every day by oral route. No 1 Q1D aspirin 81 mg tablet,del ayed release Take 1 tablet every day by oral route. [facility] atorvastati n 40 mg tablet Take 1 tablet every day by oral route at bedtime for 30 days. atorvastati n 40 mg tablet Take 1 tablet every day by oral route at bedtime for 30 days. No atorvastat in 40 mg tablet Take 1 tablet every day by oral route at bedtime for 30 days. [facility] benztropine 1 mg tablet Take 1 mg every day by oral route at bedtime for 30 days. benztropine 1 mg tablet Take 1 mg every day by oral route at bedtime for 30 days. No benztropin e 1 mg tablet Take 1 mg every day by oral route at bedtime for 30 days. [facility] budesonide- formoterol HFA 160 mcg-4.5 mcg/actuati on aerosol inhaler Inhale 2 puffs twice a day by inhalation route. budesonide- formoterol HFA 160 mcg-4.5 mcg/actuati on aerosol inhaler Inhale 2 puffs twice a day by inhalation route. No budesonide -formotero l HFA 160 mcg-4.5 mcg/actuat ion aerosol inhaler Inhale 2 puffs twice a day by inhalation route. [facility] Colace 100 mg capsule Take 1 capsule every day by oral route. Colace 100 mg capsule Take 1 capsule every day by oral route. No 1capsul e(s) Q1D Colace 100 mg capsule Take 1 capsule every day by oral route. [facility] ergocalcife rol (vitamin D2) 1,250 mcg (50,000 unit) capsule Take 1 capsule every week by oral route. ergocalcife rol (vitamin D2) 1,250 mcg (50,000 unit) capsule Take 1 capsule every week by oral route. No ergocalcif kristen (vitamin D2) 1,250 mcg (50,000 unit) capsule Take 1 capsule every week by oral route. [facility] ferrous sulfate 324 mg (65 mg iron) tablet,kit yed release Take 1 tablet every day by oral route. ferrous sulfate 324 mg (65 mg iron) tablet,kit yed release Take 1 tablet every day by oral route. No 1 Q1D ferrous sulfate 324 mg (65 mg iron) tablet,del ayed release Take 1 tablet every day by oral route. [facility] folic acid 400 mcg tablet Take 1 tablet every day by oral route. folic acid 400 mcg tablet Take 1 tablet every day by oral route. No 1 Q1D folic acid 400 mcg tablet Take 1 tablet every day by oral route. [facility] furosemide 80 mg tablet Take 1 tablet every day by oral route for 30 days. furosemide 80 mg tablet Take 1 tablet every day by oral route for 30 days. No furosemide 80 mg tablet Take 1 tablet every day by oral route for 30 days. [facility] gabapentin 300 mg capsule Take 1 capsule 3 times a day by oral route for 30 days. gabapentin 300 mg capsule Take 1 capsule 3 times a day by oral route for 30 days. No gabapentin 300 mg capsule Take 1 capsule 3 times a day by oral route for 30 days. [facility] ipratropium bromide 0.02 % solution for inhalation Inhale 2.5 mL every 6 hours by inhalation route. ipratropium bromide 0.02 % solution for inhalation Inhale 2.5 mL every 6 hours by inhalation route. No 2.5mL Q6H ipratropiu m bromide 0.02 % solution for inhalation Inhale 2.5 mL every 6 hours by inhalation route. [facility] lactulose 10 gram/15 mL oral solution lactulose 10 gram/15 mL oral solution No lactulose 10 gram/15 mL oral solution [facility] Lantus U-100 Insulin 100 unit/mL subcutaneou s solution Inject 35 units every day by subcutaneou s route. Lantus U-100 Insulin 100 unit/mL subcutaneou s solution Inject 35 units every day by subcutaneou s route. No Lantus U-100 Insulin 100 unit/mL subcutaneo us solution Inject 35 units every day by subcutaneo us route. [facility] lisinopril 5 mg tablet Take 1 tablet every day by oral route for 30 days. lisinopril 5 mg tablet Take 1 tablet every day by oral route for 30 days. No lisinopril 5 mg tablet Take 1 tablet every day by oral route for 30 days. [facility] metformin 500 mg tablet Take 1 tablet twice a day by oral route for 30 days. metformin 500 mg tablet Take 1 tablet twice a day by oral route for 30 days. No metformin 500 mg tablet Take 1 tablet twice a day by oral route for 30 days. [facility] Nystop 100,000 unit/gram topical powder Nystop 100,000 unit/gram topical powder No Nystop 100,000 unit/gram topical powder [facility] prednisone 10 mg tablet Take 1 tablet twice a day by oral route. prednisone 10 mg tablet Take 1 tablet twice a day by oral route. No prednisone 10 mg tablet Take 1 tablet twice a day by oral route. [facility] prednisone 5 mg tablet prednisone 5 mg tablet No prednisone 5 mg tablet [facility] ProAir HFA 90 mcg/actuati on aerosol inhaler Inhale 2 puffs every 4 hours by inhalation route as needed. ProAir HFA 90 mcg/actuati on aerosol inhaler Inhale 2 puffs every 4 hours by inhalation route as needed. No 2puff(s ) Q4H ProAir HFA 90 mcg/actuat ion aerosol inhaler Inhale 2 puffs every 4 hours by inhalation route as needed. [facility] sertraline 100 mg tablet Take 1 tablet every day by oral route for 30 days. sertraline 100 mg tablet Take 1 tablet every day by oral route for 30 days. No sertraline 100 mg tablet Take 1 tablet every day by oral route for 30 days. [facility] spironolact one 25 mg tablet Take 1 tablet every day by oral route. spironolact one 25 mg tablet Take 1 tablet every day by oral route. No spironolac tone 25 mg tablet Take 1 tablet every day by oral route. [facility] Tums Extra Strength Smoothies 300 mg (750 mg) chewable tablet Take 1 tablet twice a day by oral route. Tums Extra Strength Smoothies 300 mg (750 mg) chewable tablet Take 1 tablet twice a day by oral route. No 1 BID Tums Extra Strength Smoothies 300 mg (750 mg) chewable tablet Take 1 tablet twice a day by oral route. [facility] zinc oxide topical ointment Apply to affected skin TID zinc oxide topical ointment Apply to affected skin TID No zinc oxide topical ointment Apply to affected skin TID [facility] Jeri Allergy 180 mg tablet Take 1 tablet every day by oral route. [facility] Allergy 180 mg tablet Take 1 tablet every day by oral route. No 1 Q1D Jer[facility] Allergy 180 mg tablet Take 1 tablet every day by oral route. [facility] aripiprazol e 10 mg tablet Take 1 tablet every day by oral route at bedtime for 30 days. aripiprazol e 10 mg tablet Take 1 tablet every day by oral route at bedtime for 30 days. No aripiprazo le 10 mg tablet Take 1 tablet every day by oral route at bedtime for 30 days. [facility] aspirin 81 mg tablet,kit yed release Take 1 tablet every day by oral route. aspirin 81 mg tablet,kit yed release Take 1 tablet every day by oral route. No 1 Q1D aspirin 81 mg tablet,del ayed release Take 1 tablet every day by oral route. [facility] atorvastati n 40 mg tablet Take 1 tablet every day by oral route at bedtime for 30 days. atorvastati n 40 mg tablet Take 1 tablet every day by oral route at bedtime for 30 days. No atorvastat in 40 mg tablet Take 1 tablet every day by oral route at bedtime for 30 days. [facility] benztropine 1 mg tablet Take 1 mg every day by oral route at bedtime for 30 days. benztropine 1 mg tablet Take 1 mg every day by oral route at bedtime for 30 days. No benztropin e 1 mg tablet Take 1 mg every day by oral route at bedtime for 30 days. [facility] budesonide- formoterol HFA 160 mcg-4.5 mcg/actuati on aerosol inhaler Inhale 2 puffs twice a day by inhalation route. budesonide- formoterol HFA 160 mcg-4.5 mcg/actuati on aerosol inhaler Inhale 2 puffs twice a day by inhalation route. No budesonide -formotero l HFA 160 mcg-4.5 mcg/actuat ion aerosol inhaler Inhale 2 puffs twice a day by inhalation route. [facility] Colace 100 mg capsule Take 1 capsule every day by oral route. Colace 100 mg capsule Take 1 capsule every day by oral route. No 1capsul e(s) Q1D Colace 100 mg capsule Take 1 capsule every day by oral route. [facility] ergocalcife rol (vitamin D2) 1,250 mcg (50,000 unit) capsule Take 1 capsule every week by oral route. ergocalcife rol (vitamin D2) 1,250 mcg (50,000 unit) capsule Take 1 capsule every week by oral route. No ergocalcif kristen (vitamin D2) 1,250 mcg (50,000 unit) capsule Take 1 capsule every week by oral route. [facility] ferrous sulfate 324 mg (65 mg iron) tablet,kit yed release Take 1 tablet every day by oral route. ferrous sulfate 324 mg (65 mg iron) tablet,kit yed release Take 1 tablet every day by oral route. No 1 Q1D ferrous sulfate 324 mg (65 mg iron) tablet,del ayed release Take 1 tablet every day by oral route. [facility] folic acid 400 mcg tablet Take 1 tablet every day by oral route. folic acid 400 mcg tablet Take 1 tablet every day by oral route. No 1 Q1D folic acid 400 mcg tablet Take 1 tablet every day by oral route. [facility] furosemide 80 mg tablet Take 1 tablet every day by oral route for 30 days. furosemide 80 mg tablet Take 1 tablet every day by oral route for 30 days. No furosemide 80 mg tablet Take 1 tablet every day by oral route for 30 days. [facility] gabapentin 300 mg capsule Take 1 capsule 3 times a day by oral route for 30 days. gabapentin 300 mg capsule Take 1 capsule 3 times a day by oral route for 30 days. No gabapentin 300 mg capsule Take 1 capsule 3 times a day by oral route for 30 days. [facility] ipratropium bromide 0.02 % solution for inhalation Inhale 2.5 mL every 6 hours by inhalation route. ipratropium bromide 0.02 % solution for inhalation Inhale 2.5 mL every 6 hours by inhalation route. No 2.5mL Q6H ipratropiu m bromide 0.02 % solution for inhalation Inhale 2.5 mL every 6 hours by inhalation route. [facility] lactulose 10 gram/15 mL oral solution lactulose 10 gram/15 mL oral solution No lactulose 10 gram/15 mL oral solution [facility] Lantus U-100 Insulin 100 unit/mL subcutaneou s solution Inject 39 units every day by subcutaneou s route. Lantus U-100 Insulin 100 unit/mL subcutaneou s solution Inject 39 units every day by subcutaneou s route. No 39unit( s) Q1D Lantus U-100 Insulin 100 unit/mL subcutaneo us solution Inject 39 units every day by subcutaneo us route. [facility] lisinopril 5 mg tablet Take 1 tablet every day by oral route for 30 days. lisinopril 5 mg tablet Take 1 tablet every day by oral route for 30 days. No lisinopril 5 mg tablet Take 1 tablet every day by oral route for 30 days. [facility] metformin 500 mg tablet Take 1 tablet twice a day by oral route for 30 days. metformin 500 mg tablet Take 1 tablet twice a day by oral route for 30 days. No metformin 500 mg tablet Take 1 tablet twice a day by oral route for 30 days. [facility] Nystop 100,000 unit/gram topical powder Nystop 100,000 unit/gram topical powder No Nystop 100,000 unit/gram topical powder [facility] ProAir HFA 90 mcg/actuati on aerosol inhaler Inhale 2 puffs every 4 hours by inhalation route as needed. ProAir HFA 90 mcg/actuati on aerosol inhaler Inhale 2 puffs every 4 hours by inhalation route as needed. No 2puff(s ) Q4H ProAir HFA 90 mcg/actuat ion aerosol inhaler Inhale 2 puffs every 4 hours by inhalation route as needed. [facility] sertraline 100 mg tablet Take 1 tablet every day by oral route for 30 days. sertraline 100 mg tablet Take 1 tablet every day by oral route for 30 days. No sertraline 100 mg tablet Take 1 tablet every day by oral route for 30 days. [facility] spironolact one 25 mg tablet Take 1 tablet every day by oral route. spironolact one 25 mg tablet Take 1 tablet every day by oral route. No spironolac tone 25 mg tablet Take 1 tablet every day by oral route. [facility] Tums Extra Strength Smoothies 300 mg (750 mg) chewable tablet Take 1 tablet twice a day by oral route. Tums Extra Strength Smoothies 300 mg (750 mg) chewable tablet Take 1 tablet twice a day by oral route. No 1 BID Tums Extra Strength Smoothies 300 mg (750 mg) chewable tablet Take 1 tablet twice a day by oral route. [facility] zinc oxide topical ointment Apply to affected skin TID zinc oxide topical ointment Apply to affected skin TID No zinc oxide topical ointment Apply to affected skin TID [facility] Immunizations Ordered Immunization Name Filled Immunization Name Date Status Comments Source influenza, injectable, quadrivalent influenza, injectable, quadrivalent 2022-07-30 00:00:00 Completed [facility] influenza, injectable, quadrivalent influenza, injectable, quadrivalent 2022-07-30 00:00:00 Completed [facility] influenza, injectable, quadrivalent influenza, injectable, quadrivalent 2022-07-30 00:00:00 Completed [facility] influenza, injectable, quadrivalent influenza, injectable, quadrivalent 2022-07-30 00:00:00 Completed [facility] influenza, injectable, quadrivalent influenza, injectable, quadrivalent 2022-07-30 00:00:00 Completed [facility] influenza, injectable, quadrivalent influenza, injectable, quadrivalent 2022-07-30 00:00:00 Completed [facility] influenza, injectable, quadrivalent influenza, injectable, quadrivalent 2022-07-30 00:00:00 Completed [facility] influenza, injectable, quadrivalent influenza, injectable, quadrivalent 2022-07-30 00:00:00 Completed [facility] influenza, injectable, quadrivalent influenza, injectable, quadrivalent 2022-07-30 00:00:00 Completed [facility] influenza, injectable, quadrivalent influenza, injectable, quadrivalent 2022-07-30 00:00:00 Completed [facility] influenza, injectable, quadrivalent influenza, injectable, quadrivalent 2022-07-30 00:00:00 Completed [facility] influenza, injectable, quadrivalent influenza, injectable, quadrivalent 2022-07-30 00:00:00 Completed [facility] COVID-19 (SARS-COV-2) vaccine, unspecified COVID-19 (SARS-COV-2) vaccine, unspecified 2021-10-05 00:00:00 Completed [facility] COVID-19 (SARS-COV-2) vaccine, unspecified COVID-19 (SARS-COV-2) vaccine, unspecified 2021-10-05 00:00:00 Completed [facility] COVID-19 (SARS-COV-2) vaccine, unspecified COVID-19 (SARS-COV-2) vaccine, unspecified 2021-10-05 00:00:00 Completed [facility] COVID-19 (SARS-COV-2) vaccine, unspecified COVID-19 (SARS-COV-2) vaccine, unspecified 2021-10-05 00:00:00 Completed [facility] COVID-19 (SARS-COV-2) vaccine, unspecified COVID-19 (SARS-COV-2) vaccine, unspecified 2021-10-05 00:00:00 Completed [facility] COVID-19 (SARS-COV-2) vaccine, unspecified COVID-19 (SARS-COV-2) vaccine, unspecified 2021-10-05 00:00:00 Completed [facility] COVID-19 (SARS-COV-2) vaccine, unspecified COVID-19 (SARS-COV-2) vaccine, unspecified 2021-10-05 00:00:00 Completed [facility] COVID-19 (SARS-COV-2) vaccine, unspecified COVID-19 (SARS-COV-2) vaccine, unspecified 2021-10-05 00:00:00 Completed [facility] COVID-19 (SARS-COV-2) vaccine, unspecified COVID-19 (SARS-COV-2) vaccine, unspecified 2021-10-05 00:00:00 Completed [facility] COVID-19 (SARS-COV-2) vaccine, unspecified COVID-19 (SARS-COV-2) vaccine, unspecified 2021-10-05 00:00:00 Completed [facility] COVID-19 (SARS-COV-2) vaccine, unspecified COVID-19 (SARS-COV-2) vaccine, unspecified 2021-10-05 00:00:00 Completed [facility] COVID-19 (SARS-COV-2) vaccine, unspecified COVID-19 (SARS-COV-2) vaccine, unspecified 2021-10-05 00:00:00 Completed [facility] COVID-19 (SARS-COV-2) vaccine, unspecified COVID-19 (SARS-COV-2) vaccine, unspecified 2021-10-05 00:00:00 Completed [facility] COVID-19 (SARS-COV-2) vaccine, unspecified COVID-19 (SARS-COV-2) vaccine, unspecified 2021-10-05 00:00:00 Completed [facility] COVID-19 (SARS-COV-2) vaccine, unspecified COVID-19 (SARS-COV-2) vaccine, unspecified 2021-10-05 00:00:00 Completed [facility] COVID-19 (SARS-COV-2) vaccine, unspecified COVID-19 (SARS-COV-2) vaccine, unspecified 2021-10-05 00:00:00 Completed [facility] COVID-19 (SARS-COV-2) vaccine, unspecified COVID-19 (SARS-COV-2) vaccine, unspecified 2021-10-05 00:00:00 Completed [facility] COVID-19 (SARS-COV-2) vaccine, unspecified COVID-19 (SARS-COV-2) vaccine, unspecified 2021-10-05 00:00:00 Completed [facility] COVID-19 (SARS-COV-2) vaccine, unspecified COVID-19 (SARS-COV-2) vaccine, unspecified 2021-10-05 00:00:00 Completed [facility] COVID-19 (SARS-COV-2) vaccine, unspecified COVID-19 (SARS-COV-2) vaccine, unspecified 2021-10-05 00:00:00 Completed [facility] COVID-19 (SARS-COV-2) vaccine, unspecified COVID-19 (SARS-COV-2) vaccine, unspecified 2021-10-05 00:00:00 Completed [facility] COVID-19 (SARS-COV-2) vaccine, unspecified COVID-19 (SARS-COV-2) vaccine, unspecified 2021-10-05 00:00:00 Completed [facility] COVID-19 (SARS-COV-2) vaccine, unspecified COVID-19 (SARS-COV-2) vaccine, unspecified 2021-10-05 00:00:00 Completed [facility] COVID-19 (SARS-COV-2) vaccine, unspecified COVID-19 (SARS-COV-2) vaccine, unspecified 2021-10-05 00:00:00 Completed [facility] COVID-19 (SARS-COV-2) vaccine, unspecified COVID-19 (SARS-COV-2) vaccine, unspecified 2021-10-05 00:00:00 Completed [facility] COVID-19 (SARS-COV-2) vaccine, unspecified COVID-19 (SARS-COV-2) vaccine, unspecified 2021-10-05 00:00:00 Completed [facility] COVID-19 (SARS-COV-2) vaccine, unspecified COVID-19 (SARS-COV-2) vaccine, unspecified 2021-10-05 00:00:00 Completed [facility] COVID-19 (SARS-COV-2) vaccine, unspecified COVID-19 (SARS-COV-2) vaccine, unspecified 2021-10-05 00:00:00 Completed [facility] COVID-19 (SARS-COV-2) vaccine, unspecified COVID-19 (SARS-COV-2) vaccine, unspecified 2021-10-05 00:00:00 Completed [facility] COVID-19 (SARS-COV-2) vaccine, unspecified COVID-19 (SARS-COV-2) vaccine, unspecified 2021-10-05 00:00:00 Completed [facility] COVID-19 (SARS-COV-2) vaccine, unspecified COVID-19 (SARS-COV-2) vaccine, unspecified 2021-10-05 00:00:00 Completed [facility] COVID-19 (SARS-COV-2) vaccine, unspecified COVID-19 (SARS-COV-2) vaccine, unspecified 2021-10-05 00:00:00 Completed [facility] COVID-19 (SARS-COV-2) vaccine, unspecified COVID-19 (SARS-COV-2) vaccine, unspecified 2021-10-05 00:00:00 Completed [facility] COVID-19 (SARS-COV-2) vaccine, unspecified COVID-19 (SARS-COV-2) vaccine, unspecified 2021-10-05 00:00:00 Completed [facility] COVID-19 (SARS-COV-2) vaccine, unspecified COVID-19 (SARS-COV-2) vaccine, unspecified 2021-10-05 00:00:00 Completed [facility] COVID-19 (SARS-COV-2) vaccine, unspecified COVID-19 (SARS-COV-2) vaccine, unspecified 2021-10-05 00:00:00 Completed [facility] COVID-19 (SARS-COV-2) vaccine, unspecified COVID-19 (SARS-COV-2) vaccine, unspecified 2021-10-05 00:00:00 Completed [facility] COVID-19 (SARS-COV-2) vaccine, unspecified COVID-19 (SARS-COV-2) vaccine, unspecified 2021-10-05 00:00:00 Completed [facility] COVID-19 (SARS-COV-2) vaccine, unspecified COVID-19 (SARS-COV-2) vaccine, unspecified 2021-10-05 00:00:00 Completed [facility] COVID-19 (SARS-COV-2) vaccine, unspecified COVID-19 (SARS-COV-2) vaccine, unspecified 2021-10-05 00:00:00 Completed [facility] pneumococcal polysaccharide PPV23 pneumococcal polysaccharide PPV23 2021-09-21 00:00:00 Completed [facility] pneumococcal polysaccharide PPV23 pneumococcal polysaccharide PPV23 2021-09-21 00:00:00 Completed [facility] pneumococcal polysaccharide PPV23 pneumococcal polysaccharide PPV23 2021-09-21 00:00:00 Completed [facility] pneumococcal polysaccharide PPV23 pneumococcal polysaccharide PPV23 2021-09-21 00:00:00 Completed [facility] pneumococcal polysaccharide PPV23 pneumococcal polysaccharide PPV23 2021-09-21 00:00:00 Completed [facility] pneumococcal polysaccharide PPV23 pneumococcal polysaccharide PPV23 2021-09-21 00:00:00 Completed [facility] pneumococcal polysaccharide PPV23 pneumococcal polysaccharide PPV23 2021-09-21 00:00:00 Completed [facility] pneumococcal polysaccharide PPV23 pneumococcal polysaccharide PPV23 2021-09-21 00:00:00 Completed [facility] pneumococcal polysaccharide PPV23 pneumococcal polysaccharide PPV23 2021-09-21 00:00:00 Completed [facility] pneumococcal polysaccharide PPV23 pneumococcal polysaccharide PPV23 2021-09-21 00:00:00 Completed [facility] pneumococcal polysaccharide PPV23 pneumococcal polysaccharide PPV23 2021-09-21 00:00:00 Completed [facility] pneumococcal polysaccharide PPV23 pneumococcal polysaccharide PPV23 2021-09-21 00:00:00 Completed [facility] pneumococcal polysaccharide PPV23 pneumococcal polysaccharide PPV23 2021-09-21 00:00:00 Completed [facility] pneumococcal polysaccharide PPV23 pneumococcal polysaccharide PPV23 2021-09-21 00:00:00 Completed [facility] pneumococcal polysaccharide PPV23 pneumococcal polysaccharide PPV23 2021-09-21 00:00:00 Completed [facility] pneumococcal polysaccharide PPV23 pneumococcal polysaccharide PPV23 2021-09-21 00:00:00 Completed [facility] pneumococcal polysaccharide PPV23 pneumococcal polysaccharide PPV23 2021-09-21 00:00:00 Completed [facility] pneumococcal polysaccharide PPV23 pneumococcal polysaccharide PPV23 2021-09-21 00:00:00 Completed [facility] pneumococcal polysaccharide PPV23 pneumococcal polysaccharide PPV23 2021-09-21 00:00:00 Completed [facility] pneumococcal polysaccharide PPV23 pneumococcal polysaccharide PPV23 2021-09-21 00:00:00 Completed [facility] pneumococcal polysaccharide PPV23 pneumococcal polysaccharide PPV23 2021-09-21 00:00:00 Completed [facility] pneumococcal polysaccharide PPV23 pneumococcal polysaccharide PPV23 2021-09-21 00:00:00 Completed [facility] pneumococcal polysaccharide PPV23 pneumococcal polysaccharide PPV23 2021-09-21 00:00:00 Completed [facility] pneumococcal polysaccharide PPV23 pneumococcal polysaccharide PPV23 2021-09-21 00:00:00 Completed [facility] pneumococcal polysaccharide PPV23 pneumococcal polysaccharide PPV23 2021-09-21 00:00:00 Completed [facility] pneumococcal polysaccharide PPV23 pneumococcal polysaccharide PPV23 2021-09-21 00:00:00 Completed [facility] influenza, injectable, quadrivalent influenza, injectable, quadrivalent 2021-08-10 00:00:00 Completed [facility] influenza, injectable, quadrivalent influenza, injectable, quadrivalent 2021-08-10 00:00:00 Completed [facility] influenza, injectable, quadrivalent influenza, injectable, quadrivalent 2021-08-10 00:00:00 Completed [facility] influenza, injectable, quadrivalent influenza, injectable, quadrivalent 2021-08-10 00:00:00 Completed [facility] influenza, injectable, quadrivalent influenza, injectable, quadrivalent 2021-08-10 00:00:00 Completed [facility] influenza, injectable, quadrivalent influenza, injectable, quadrivalent 2021-08-10 00:00:00 Completed [facility] influenza, injectable, quadrivalent influenza, injectable, quadrivalent 2021-08-10 00:00:00 Completed [facility] influenza, injectable, quadrivalent influenza, injectable, quadrivalent 2021-08-10 00:00:00 Completed [facility] influenza, injectable, quadrivalent influenza, injectable, quadrivalent 2021-08-10 00:00:00 Completed [facility] influenza, injectable, quadrivalent influenza, injectable, quadrivalent 2021-08-10 00:00:00 Completed [facility] influenza, injectable, quadrivalent influenza, injectable, quadrivalent 2021-08-10 00:00:00 Completed [facility] influenza, injectable, quadrivalent influenza, injectable, quadrivalent 2021-08-10 00:00:00 Completed [facility] influenza, injectable, quadrivalent influenza, injectable, quadrivalent 2021-08-10 00:00:00 Completed [facility] influenza, injectable, quadrivalent influenza, injectable, quadrivalent 2021-08-10 00:00:00 Completed [facility] influenza, injectable, quadrivalent influenza, injectable, quadrivalent 2021-08-10 00:00:00 Completed [facility] influenza, injectable, quadrivalent influenza, injectable, quadrivalent 2021-08-10 00:00:00 Completed [facility] influenza, injectable, quadrivalent influenza, injectable, quadrivalent 2021-08-10 00:00:00 Completed [facility] influenza, injectable, quadrivalent influenza, injectable, quadrivalent 2021-08-10 00:00:00 Completed [facility] influenza, injectable, quadrivalent influenza, injectable, quadrivalent 2021-08-10 00:00:00 Completed [facility] influenza, injectable, quadrivalent influenza, injectable, quadrivalent 2021-08-10 00:00:00 Completed [facility] influenza, injectable, quadrivalent influenza, injectable, quadrivalent 2021-08-10 00:00:00 Completed [facility] influenza, injectable, quadrivalent influenza, injectable, quadrivalent 2021-08-10 00:00:00 Completed [facility] influenza, injectable, quadrivalent influenza, injectable, quadrivalent 2021-08-10 00:00:00 Completed [facility] influenza, injectable, quadrivalent influenza, injectable, quadrivalent 2021-08-10 00:00:00 Completed [facility] influenza, injectable, quadrivalent influenza, injectable, quadrivalent 2021-08-10 00:00:00 Completed [facility] influenza, injectable, quadrivalent influenza, injectable, quadrivalent 2021-08-10 00:00:00 Completed [facility] COVID-19 (SARS-COV-2) vaccine, unspecified COVID-19 (SARS-COV-2) vaccine, unspecified 2020-12-10 00:00:00 Completed [facility] COVID-19 (SARS-COV-2) vaccine, unspecified COVID-19 (SARS-COV-2) vaccine, unspecified 2020-12-10 00:00:00 Completed [facility] COVID-19 (SARS-COV-2) vaccine, unspecified COVID-19 (SARS-COV-2) vaccine, unspecified 2020-12-10 00:00:00 Completed [facility] COVID-19 (SARS-COV-2) vaccine, unspecified COVID-19 (SARS-COV-2) vaccine, unspecified 2020-12-10 00:00:00 Completed [facility] COVID-19 (SARS-COV-2) vaccine, unspecified COVID-19 (SARS-COV-2) vaccine, unspecified 2020-12-10 00:00:00 Completed [facility] COVID-19 (SARS-COV-2) vaccine, unspecified COVID-19 (SARS-COV-2) vaccine, unspecified 2020-12-10 00:00:00 Completed [facility] COVID-19 (SARS-COV-2) vaccine, unspecified COVID-19 (SARS-COV-2) vaccine, unspecified 2020-12-10 00:00:00 Completed [facility] COVID-19 (SARS-COV-2) vaccine, unspecified COVID-19 (SARS-COV-2) vaccine, unspecified 2020-12-10 00:00:00 Completed [facility] COVID-19 (SARS-COV-2) vaccine, unspecified COVID-19 (SARS-COV-2) vaccine, unspecified 2020-12-10 00:00:00 Completed [facility] COVID-19 (SARS-COV-2) vaccine, unspecified COVID-19 (SARS-COV-2) vaccine, unspecified 2020-12-10 00:00:00 Completed [facility] COVID-19 (SARS-COV-2) vaccine, unspecified COVID-19 (SARS-COV-2) vaccine, unspecified 2020-12-10 00:00:00 Completed [facility] COVID-19 (SARS-COV-2) vaccine, unspecified COVID-19 (SARS-COV-2) vaccine, unspecified 2020-12-10 00:00:00 Completed [facility] COVID-19 (SARS-COV-2) vaccine, unspecified COVID-19 (SARS-COV-2) vaccine, unspecified 2020-12-10 00:00:00 Completed [facility] COVID-19 (SARS-COV-2) vaccine, unspecified COVID-19 (SARS-COV-2) vaccine, unspecified 2020-12-10 00:00:00 Completed [facility] COVID-19 (SARS-COV-2) vaccine, unspecified COVID-19 (SARS-COV-2) vaccine, unspecified 2020-12-10 00:00:00 Completed [facility] COVID-19 (SARS-COV-2) vaccine, unspecified COVID-19 (SARS-COV-2) vaccine, unspecified 2020-12-10 00:00:00 Completed [facility] COVID-19 (SARS-COV-2) vaccine, unspecified COVID-19 (SARS-COV-2) vaccine, unspecified 2020-12-10 00:00:00 Completed [facility] COVID-19 (SARS-COV-2) vaccine, unspecified COVID-19 (SARS-COV-2) vaccine, unspecified 2020-12-10 00:00:00 Completed [facility] COVID-19 (SARS-COV-2) vaccine, unspecified COVID-19 (SARS-COV-2) vaccine, unspecified 2020-12-10 00:00:00 Completed [facility] COVID-19 (SARS-COV-2) vaccine, unspecified COVID-19 (SARS-COV-2) vaccine, unspecified 2020-12-10 00:00:00 Completed [facility] COVID-19 (SARS-COV-2) vaccine, unspecified COVID-19 (SARS-COV-2) vaccine, unspecified 2020-12-10 00:00:00 Completed [facility] COVID-19 (SARS-COV-2) vaccine, unspecified COVID-19 (SARS-COV-2) vaccine, unspecified 2020-12-10 00:00:00 Completed [facility] COVID-19 (SARS-COV-2) vaccine, unspecified COVID-19 (SARS-COV-2) vaccine, unspecified 2020-12-10 00:00:00 Completed [facility] COVID-19 (SARS-COV-2) vaccine, unspecified COVID-19 (SARS-COV-2) vaccine, unspecified 2020-12-10 00:00:00 Completed [facility] COVID-19 (SARS-COV-2) vaccine, unspecified COVID-19 (SARS-COV-2) vaccine, unspecified 2020-12-10 00:00:00 Completed [facility] COVID-19 (SARS-COV-2) vaccine, unspecified COVID-19 (SARS-COV-2) vaccine, unspecified 2020-12-10 00:00:00 Completed [facility] COVID-19 (SARS-COV-2) vaccine, unspecified COVID-19 (SARS-COV-2) vaccine, unspecified 2020-11-18 00:00:00 Completed [facility] COVID-19 (SARS-COV-2) vaccine, unspecified COVID-19 (SARS-COV-2) vaccine, unspecified 2020-11-18 00:00:00 Completed [facility] COVID-19 (SARS-COV-2) vaccine, unspecified COVID-19 (SARS-COV-2) vaccine, unspecified 2020-11-18 00:00:00 Completed [facility] COVID-19 (SARS-COV-2) vaccine, unspecified COVID-19 (SARS-COV-2) vaccine, unspecified 2020-11-18 00:00:00 Completed [facility] COVID-19 (SARS-COV-2) vaccine, unspecified COVID-19 (SARS-COV-2) vaccine, unspecified 2020-11-18 00:00:00 Completed [facility] COVID-19 (SARS-COV-2) vaccine, unspecified COVID-19 (SARS-COV-2) vaccine, unspecified 2020-11-18 00:00:00 Completed [facility] COVID-19 (SARS-COV-2) vaccine, unspecified COVID-19 (SARS-COV-2) vaccine, unspecified 2020-11-18 00:00:00 Completed [facility] COVID-19 (SARS-COV-2) vaccine, unspecified COVID-19 (SARS-COV-2) vaccine, unspecified 2020-11-18 00:00:00 Completed [facility] COVID-19 (SARS-COV-2) vaccine, unspecified COVID-19 (SARS-COV-2) vaccine, unspecified 2020-11-18 00:00:00 Completed [facility] COVID-19 (SARS-COV-2) vaccine, unspecified COVID-19 (SARS-COV-2) vaccine, unspecified 2020-11-18 00:00:00 Completed [facility] COVID-19 (SARS-COV-2) vaccine, unspecified COVID-19 (SARS-COV-2) vaccine, unspecified 2020-11-18 00:00:00 Completed [facility] COVID-19 (SARS-COV-2) vaccine, unspecified COVID-19 (SARS-COV-2) vaccine, unspecified 2020-11-18 00:00:00 Completed [facility] COVID-19 (SARS-COV-2) vaccine, unspecified COVID-19 (SARS-COV-2) vaccine, unspecified 2020-11-18 00:00:00 Completed [facility] COVID-19 (SARS-COV-2) vaccine, unspecified COVID-19 (SARS-COV-2) vaccine, unspecified 2020-11-18 00:00:00 Completed [facility] COVID-19 (SARS-COV-2) vaccine, unspecified COVID-19 (SARS-COV-2) vaccine, unspecified 2020-11-18 00:00:00 Completed [facility] COVID-19 (SARS-COV-2) vaccine, unspecified COVID-19 (SARS-COV-2) vaccine, unspecified 2020-11-18 00:00:00 Completed [facility] COVID-19 (SARS-COV-2) vaccine, unspecified COVID-19 (SARS-COV-2) vaccine, unspecified 2020-11-18 00:00:00 Completed [facility] COVID-19 (SARS-COV-2) vaccine, unspecified COVID-19 (SARS-COV-2) vaccine, unspecified 2020-11-18 00:00:00 Completed [facility] COVID-19 (SARS-COV-2) vaccine, unspecified COVID-19 (SARS-COV-2) vaccine, unspecified 2020-11-18 00:00:00 Completed [facility] COVID-19 (SARS-COV-2) vaccine, unspecified COVID-19 (SARS-COV-2) vaccine, unspecified 2020-11-18 00:00:00 Completed [facility] COVID-19 (SARS-COV-2) vaccine, unspecified COVID-19 (SARS-COV-2) vaccine, unspecified 2020-11-18 00:00:00 Completed [facility] COVID-19 (SARS-COV-2) vaccine, unspecified COVID-19 (SARS-COV-2) vaccine, unspecified 2020-11-18 00:00:00 Completed [facility] COVID-19 (SARS-COV-2) vaccine, unspecified COVID-19 (SARS-COV-2) vaccine, unspecified 2020-11-18 00:00:00 Completed [facility] COVID-19 (SARS-COV-2) vaccine, unspecified COVID-19 (SARS-COV-2) vaccine, unspecified 2020-11-18 00:00:00 Completed [facility] COVID-19 (SARS-COV-2) vaccine, unspecified COVID-19 (SARS-COV-2) vaccine, unspecified 2020-11-18 00:00:00 Completed [facility] COVID-19 (SARS-COV-2) vaccine, unspecified COVID-19 (SARS-COV-2) vaccine, unspecified 2020-11-18 00:00:00 Completed [facility] influenza, unspecified formulation influenza, unspecified formulation Unknown Completed [facility] pneumococcal polysaccharide PPV23 pneumococcal polysaccharide PPV23 Unknown Completed [facility] influenza, injectable, quadrivalent influenza, injectable, quadrivalent Unknown Completed [facility] COVID-19 (SARS-COV-2) vaccine, unspecified COVID-19 (SARS-COV-2) vaccine, unspecified Unknown Completed [facility] COVID-19 (SARS-COV-2) vaccine, unspecified COVID-19 (SARS-COV-2) vaccine, unspecified Unknown Completed [facility] pneumococcal polysaccharide PPV23 pneumococcal polysaccharide PPV23 Unknown Completed [facility] influenza, injectable, quadrivalent influenza, injectable, quadrivalent Unknown Completed [facility] COVID-19 (SARS-COV-2) vaccine, unspecified COVID-19 (SARS-COV-2) vaccine, unspecified Unknown Completed [facility] COVID-19 (SARS-COV-2) vaccine, unspecified COVID-19 (SARS-COV-2) vaccine, unspecified Unknown Completed [facility] influenza, unspecified formulation influenza, unspecified formulation Unknown Completed [facility] pneumococcal polysaccharide PPV23 pneumococcal polysaccharide PPV23 Unknown Completed [facility] influenza, injectable, quadrivalent influenza, injectable, quadrivalent Unknown Completed [facility] COVID-19 (SARS-COV-2) vaccine, unspecified COVID-19 (SARS-COV-2) vaccine, unspecified Unknown Completed [facility] COVID-19 (SARS-COV-2) vaccine, unspecified COVID-19 (SARS-COV-2) vaccine, unspecified Unknown Completed [facility] pneumococcal polysaccharide PPV23 pneumococcal polysaccharide PPV23 Unknown Completed [facility] influenza, injectable, quadrivalent influenza, injectable, quadrivalent Unknown Completed [facility] COVID-19 (SARS-COV-2) vaccine, unspecified COVID-19 (SARS-COV-2) vaccine, unspecified Unknown Completed [facility] COVID-19 (SARS-COV-2) vaccine, unspecified COVID-19 (SARS-COV-2) vaccine, unspecified Unknown Completed [facility] influenza, unspecified formulation influenza, unspecified formulation Unknown Completed [facility] pneumococcal polysaccharide PPV23 pneumococcal polysaccharide PPV23 Unknown Completed [facility] influenza, injectable, quadrivalent influenza, injectable, quadrivalent Unknown Completed [facility] COVID-19 (SARS-COV-2) vaccine, unspecified COVID-19 (SARS-COV-2) vaccine, unspecified Unknown Completed [facility] COVID-19 (SARS-COV-2) vaccine, unspecified COVID-19 (SARS-COV-2) vaccine, unspecified Unknown Completed [facility] pneumococcal polysaccharide PPV23 pneumococcal polysaccharide PPV23 Unknown Completed [facility] influenza, injectable, quadrivalent influenza, injectable, quadrivalent Unknown Completed [facility] COVID-19 (SARS-COV-2) vaccine, unspecified COVID-19 (SARS-COV-2) vaccine, unspecified Unknown Completed [facility] COVID-19 (SARS-COV-2) vaccine, unspecified COVID-19 (SARS-COV-2) vaccine, unspecified Unknown Completed [facility] influenza, unspecified formulation influenza, unspecified formulation Unknown Completed [facility] pneumococcal polysaccharide PPV23 pneumococcal polysaccharide PPV23 Unknown Completed [facility] influenza, injectable, quadrivalent influenza, injectable, quadrivalent Unknown Completed [facility] COVID-19 (SARS-COV-2) vaccine, unspecified COVID-19 (SARS-COV-2) vaccine, unspecified Unknown Completed [facility] COVID-19 (SARS-COV-2) vaccine, unspecified COVID-19 (SARS-COV-2) vaccine, unspecified Unknown Completed [facility] pneumococcal polysaccharide PPV23 pneumococcal polysaccharide PPV23 Unknown Completed [facility] influenza, injectable, quadrivalent influenza, injectable, quadrivalent Unknown Completed [facility] COVID-19 (SARS-COV-2) vaccine, unspecified COVID-19 (SARS-COV-2) vaccine, unspecified Unknown Completed [facility] COVID-19 (SARS-COV-2) vaccine, unspecified COVID-19 (SARS-COV-2) vaccine, unspecified Unknown Completed [facility] Vital Signs Vital Name Observation Time Observation Value Comments S ource Height 2023-12-28 00:00:00 66 [in_i] [facility] BP Diastolic 2023-12-28 00:00:00 65 mm[Hg] [facility] BMI (Body Mass Index) 2023-12-28 00:00:00 72.6 kg/m2 [facility] BP Systolic 2023-12-28 00:00:00 123 mm[Hg] [facility] Body Weight 2023-12-28 00:00:00 7200 [oz_av] [facility] BP Diastolic 2023-12-12 00:00:00 68 mm[Hg] [facility] Body Weight 2023-12-12 00:00:00 7200 [oz_av] [facility] BMI (Body Mass Index) 2023-12-12 00:00:00 72.6 kg/m2 [facility] Height 2023-12-12 00:00:00 66 [in_i] [facility] BP Systolic 2023-12-12 00:00:00 128 mm[Hg] [facility] BP Systolic 2023-12-08 00:00:00 122 mm[Hg] [facility] Height 2023-12-08 00:00:00 66 [in_i] [facility] BMI (Body Mass Index) 2023-12-08 00:00:00 72.6 kg/m2 [facility] BP Diastolic 2023-12-08 00:00:00 63 mm[Hg] [facility] Body Weight 2023-12-08 00:00:00 7200 [oz_av] [facility] BMI (Body Mass Index) 2023-11-24 00:00:00 72.2 kg/m2 [facility] Height 2023-11-24 00:00:00 66 [in_i] [facility] BP Diastolic 2023-11-24 00:00:00 56 mm[Hg] [facility] Body Weight 2023-11-24 00:00:00 7160 [oz_av] [facility] BP Systolic 2023-11-24 00:00:00 121 mm[Hg] [facility] BP Diastolic 2023-02-21 00:00:00 63 mm[Hg] [facility] Height 2023-02-21 00:00:00 66 [in_i] [facility] BMI (Body Mass Index) 2023-02-21 00:00:00 76.5 kg/m2 [facility] BP Systolic 2023-02-21 00:00:00 118 mm[Hg] [facility] Body Weight 2023-02-21 00:00:00 7588 [oz_av] [facility] BP Diastolic 2023-02-07 00:00:00 74 mm[Hg] [facility] Height 2023-02-07 00:00:00 66 [in_i] [facility] BMI (Body Mass Index) 2023-02-07 00:00:00 76.5 kg/m2 [facility] BP Systolic 2023-02-07 00:00:00 128 mm[Hg] [facility] Body Weight 2023-02-07 00:00:00 7588 [oz_av] [facility] BP Diastolic 2023-01-31 00:00:00 79 mm[Hg] [facility] Height 2023-01-31 00:00:00 66 [in_i] [facility] BMI (Body Mass Index) 2023-01-31 00:00:00 76.5 kg/m2 [facility] BP Systolic 2023-01-31 00:00:00 134 mm[Hg] [facility] Body Weight 2023-01-31 00:00:00 7584 [oz_av] [facility] BP Diastolic 2023-01-18 00:00:00 64 mm[Hg] [facility] Height 2023-01-18 00:00:00 66 [in_i] [facility] BMI (Body Mass Index) 2023-01-18 00:00:00 77.8 kg/m2 [facility] BP Systolic 2023-01-18 00:00:00 124 mm[Hg] [facility] Body Weight 2023-01-18 00:00:00 7712 [oz_av] [facility] BP Diastolic 2022-12-14 00:00:00 71 mm[Hg] [facility] Height 2022-12-14 00:00:00 66 [in_i] [facility] BMI (Body Mass Index) 2022-12-14 00:00:00 77.8 kg/m2 [facility] BP Systolic 2022-12-14 00:00:00 130 mm[Hg] [facility] Body Weight 2022-12-14 00:00:00 7712 [oz_av] [facility] BP Diastolic 2022-12-09 00:00:00 62.99 mm[Hg] [facility] Height 2022-12-09 00:00:00 66 [in_i] [facility] BMI (Body Mass Index) 2022-12-09 00:00:00 77.8 kg/m2 [facility] BP Systolic 2022-12-09 00:00:00 121 mm[Hg] [facility] Body Weight 2022-12-09 00:00:00 7712 [oz_av] [facility] BP Diastolic 2022-10-26 00:00:00 68 mm[Hg] [facility] Height 2022-10-26 00:00:00 66 [in_i] [facility] BMI (Body Mass Index) 2022-10-26 00:00:00 79.4 kg/m2 [facility] BP Systolic 2022-10-26 00:00:00 113 mm[Hg] [facility] Body Weight 2022-10-26 00:00:00 7872 [oz_av] [facility] BP Diastolic 2022-10-25 00:00:00 76 mm[Hg] [facility] Height 2022-10-25 00:00:00 66 [in_i] [facility] BMI (Body Mass Index) 2022-10-25 00:00:00 81.4 kg/m2 [facility] BP Systolic 2022-10-25 00:00:00 121 mm[Hg] [facility] Body Weight 2022-10-25 00:00:00 8066 [oz_av] [facility] BP Diastolic 2022-08-23 00:00:00 64 mm[Hg] [facility] Height 2022-08-23 00:00:00 66 [in_i] [facility] BMI (Body Mass Index) 2022-08-23 00:00:00 81.2 kg/m2 [facility] BP Systolic 2022-08-23 00:00:00 110 mm[Hg] [facility] Body Weight 2022-08-23 00:00:00 8048 [oz_av] [facility] BP Diastolic 2022-08-05 00:00:00 78 mm[Hg] [facility] Height 2022-08-05 00:00:00 66 [in_i] [facility] BMI (Body Mass Index) 2022-08-05 00:00:00 81.9 kg/m2 [facility] BP Systolic 2022-08-05 00:00:00 125 mm[Hg] [facility] Body Weight 2022-08-05 00:00:00 8114 [oz_av] [facility] BP Diastolic 2022-07-05 00:00:00 74 mm[Hg] [facility] Height 2022-07-05 00:00:00 66 [in_i] [facility] BMI (Body Mass Index) 2022-07-05 00:00:00 82.4 kg/m2 [facility] BP Systolic 2022-07-05 00:00:00 135 mm[Hg] [facility] Body Weight 2022-07-05 00:00:00 8168 [oz_av] [facility] BP Diastolic 2022-07-04 00:00:00 71 mm[Hg] [facility] Height 2022-07-04 00:00:00 66 [in_i] [facility] BMI (Body Mass Index) 2022-07-04 00:00:00 82.4 kg/m2 [facility] BP Systolic 2022-07-04 00:00:00 136 mm[Hg] [facility] Body Weight 2022-07-04 00:00:00 8168 [oz_av] [facility] BP Diastolic 2022-05-24 00:00:00 67 mm[Hg] [facility] Height 2022-05-24 00:00:00 66 [in_i] [facility] BMI (Body Mass Index) 2022-05-24 00:00:00 82.4 kg/m2 [facility] BP Systolic 2022-05-24 00:00:00 119 mm[Hg] [facility] Body Weight 2022-05-24 00:00:00 8168 [oz_av] [facility] BP Diastolic 2022-05-12 00:00:00 81 mm[Hg] [facility] Height 2022-05-12 00:00:00 66 [in_i] [facility] BMI (Body Mass Index) 2022-05-12 00:00:00 82.4 kg/m2 [facility] BP Systolic 2022-05-12 00:00:00 118 mm[Hg] [facility] Body Weight 2022-05-12 00:00:00 8168 [oz_av] [facility] BP Diastolic 2022-04-26 00:00:00 70 mm[Hg] [facility] Height 2022-04-26 00:00:00 66 [in_i] [facility] BMI (Body Mass Index) 2022-04-26 00:00:00 82.4 kg/m2 [facility] BP Systolic 2022-04-26 00:00:00 110 mm[Hg] [facility] Body Weight 2022-04-26 00:00:00 8168 [oz_av] [facility] BP Diastolic 2022-04-15 00:00:00 77 mm[Hg] [facility] Height 2022-04-15 00:00:00 66 [in_i] [facility] BMI (Body Mass Index) 2022-04-15 00:00:00 82.3 kg/m2 [facility] BP Systolic 2022-04-15 00:00:00 137 mm[Hg] [facility] Body Weight 2022-04-15 00:00:00 8160 [oz_av] [facility] BP Diastolic 2022-04-13 00:00:00 77 mm[Hg] [facility] Height 2022-04-13 00:00:00 66 [in_i] [facility] BMI (Body Mass Index) 2022-04-13 00:00:00 82.3 kg/m2 [facility] BP Systolic 2022-04-13 00:00:00 127 mm[Hg] [facility] Body Weight 2022-04-13 00:00:00 8160 [oz_av] [facility] BP Diastolic 2022-04-05 00:00:00 78 mm[Hg] [facility] Height 2022-04-05 00:00:00 66 [in_i] [facility] BMI (Body Mass Index) 2022-04-05 00:00:00 82.4 kg/m2 [facility] BP Systolic 2022-04-05 00:00:00 125 mm[Hg] [facility] Body Weight 2022-04-05 00:00:00 8168 [oz_av] [facility] BP Diastolic 2022-04-01 00:00:00 73 mm[Hg] [facility] Height 2022-04-01 00:00:00 66 [in_i] [facility] BMI (Body Mass Index) 2022-04-01 00:00:00 82.4 kg/m2 [facility] BP Systolic 2022-04-01 00:00:00 128 mm[Hg] [facility] Body Weight 2022-04-01 00:00:00 8168 [oz_av] [facility] BP Diastolic 2022-03-17 00:00:00 65 mm[Hg] [facility] Height 2022-03-17 00:00:00 66 [in_i] [facility] BMI (Body Mass Index) 2022-03-17 00:00:00 82.8 kg/m2 [facility] BP Systolic 2022-03-17 00:00:00 105 mm[Hg] [facility] Body Weight 2022-03-17 00:00:00 8210 [oz_av] [facility] BP Diastolic 2022-03-11 00:00:00 87 mm[Hg] [facility] Height 2022-03-11 00:00:00 66 [in_i] [facility] BMI (Body Mass Index) 2022-03-11 00:00:00 82.4 kg/m2 [facility] BP Systolic 2022-03-11 00:00:00 131 mm[Hg] [facility] Body Weight 2022-03-11 00:00:00 8168 [oz_av] [facility] BP Diastolic 2022-02-15 00:00:00 60 mm[Hg] [facility] Height 2022-02-15 00:00:00 66 [in_i] [facility] BMI (Body Mass Index) 2022-02-15 00:00:00 82.2 kg/m2 [facility] BP Systolic 2022-02-15 00:00:00 121 mm[Hg] [facility] Body Weight 2022-02-15 00:00:00 8148 [oz_av] [facility] BP Diastolic 2022-01-27 00:00:00 63 mm[Hg] [facility] Height 2022-01-27 00:00:00 66 [in_i] [facility] BMI (Body Mass Index) 2022-01-27 00:00:00 82.2 kg/m2 [facility] BP Systolic 2022-01-27 00:00:00 112 mm[Hg] [facility] Body Weight 2022-01-27 00:00:00 8150 [oz_av] [facility] BP Diastolic 2022-01-25 00:00:00 61 mm[Hg] [facility] Height 2022-01-25 00:00:00 66 [in_i] [facility] BMI (Body Mass Index) 2022-01-25 00:00:00 82.2 kg/m2 [facility] BP Systolic 2022-01-25 00:00:00 100 mm[Hg] [facility] Body Weight 2022-01-25 00:00:00 8150.4 [oz_av] [facility] Height 2020-02-27 12:35:00 167.64 CM Weight 2020-02-27 12:35:00 269.43 KG Body Temperature 2020-02-27 12:35:00 98 [degF] [facility] ([facility]) Pulse Rate 2020-02-27 12:35:00 94 /min [facility] S t [facility] ([facility]) Respiratory Rate 2020-02-27 12:35:00 18 /min [facility] ([facility]) O2% BldC Oximetry 2020-02-27 12:35:00 97 % [facility] ([facility]) BP Systolic 2020-02-27 12:35:00 124 mm[Hg] [facility] ([facility]) BP Diastolic 2020-02-27 12:35:00 80 mm[Hg] [facility] ([facility]) Height 2020-02-27 12:35:00 66 [in_i] [facility] S marilynn [facility] ([facility]) Weight 2020-02-27 12:35:00 594 [lb_av] [facility] ([facility]) BMI (Body Mass Index) 2020-02-27 12:35:00 96.6 kg/m2 [facility] ([facility]) Pulse Rate 2020-01-31 15:21:00 91 /min [facility] S [facility] ([facility]) Respiratory Rate 2020-01-31 15:21:00 17 /min [facility] ([facility]) O2% BldC Oximetry 2020-01-31 15:21:00 93 % [facility] [facility] (LUF/[place]) BP Systolic 2020-01-31 12:34:00 126 mm[Hg] Formerly [facility] (LUF/[place]) BP Diastolic 2020-01-31 12:34:00 72 mm[Hg] Formerly [facility] (LUF/[place]ON/[place]) Body Temperature 2020-01-31 12:30:00 96.2 [degF] Formerly [facility] (LUF/[place]ON/[place]) Weight 2020-01-31 05:13:00 241 kg [facility] [employer] (LUF/J[place]ON/[place]) Height 2020-01-26 04:45:00 69 [in_i] [facility] (LUF/[place]) Body Temperature 2020-01-04 18:00:00 98 [degF] Formerly [facility] (LUF/[place]ON/[place]) Pulse Rate 2020-01-04 18:00:00 70 /min [facility] (LUF/[place]ON/[place]) Respiratory Rate 2020-01-04 18:00:00 17 /min [facility] (LUF/[place]ON/[place]) O2% BldC Oximetry 2020-01-04 18:00:00 98 % [facility]ly [facility] (LUF/[place]ON/[place]) BP Systolic 2020-01-04 18:00:00 93 mm[Hg] Formerly [facility] (LUF/[place]) BP Diastolic 2020-01-04 18:00:00 53 mm[Hg] Formerly [facility] (LUF/[place]ON/[place]) Height 2020-01-04 13:35:00 69 [in_i] [facility] S t [facility] (LUF/J[place]ON/SA) Weight 2020-01-04 13:35:00 500 [lb_av] [facility]ly [facility] (LUF/[place]ON/[place]) BMI (Body Mass Index) 2020-01-04 13:35:00 74 kg/m2 [facility]ly [facility] (LUF/[place]ON/[place]) Pulse Rate 2019-11-26 16:18:00 79 /min [facility] (LUF/[place]) Respiratory Rate 2019-11-26 16:18:00 19 /min [facility] (LUF/[place]) O2% BldC Oximetry 2019-11-26 16:18:00 97 % [facility]ly [facility] (LUF/[place]) BP Systolic 2019-11-26 16:18:00 104 mm[Hg] [facility]ly [facility] (LUF/[place]) BP Diastolic 2019-11-26 16:18:00 69 mm[Hg] [facility] (LUF/[place]) Body Temperature 2019-11-26 14:09:00 98.9 [degF] [facility]ly [facility] (LUF/[place]) Height 2019-11-26 14:09:00 69 [in_i] [facility] S [facility] (LUF/[place]) Weight 2019-11-26 14:09:00 227 kg [facility] S [facility] (LUF/[place]ON/[place]) BMI (Body Mass Index) 2019-11-26 14:09:00 74.1 kg/m2 [facility]ly [facility] (LUF/[place]) Respiratory Rate 2017-09-15 17:59:00 19 /min [facility] (LUF/[place]) BP Systolic 2017-09-15 17:59:00 139 mm[Hg] [facility]ly [facility] (LUF/[place]) BP Diastolic 2017-09-15 17:59:00 85 mm[Hg] [facility]ly [facility] (LUF/J[place]ON/SA) Body Temperature 2017-09-15 16:28:00 98.6 F [facility] (LUF/[place]ON/SA) O2% BldC Oximetry 2017-09-15 16:28:00 95 % [facility]ly [facility] (F/JOHNSON/SA) Height 2017-09-15 16:28:00 69 in [facility] (F/JOHNSON/SA) Weight Measured 2017-09-15 16:28:00 405 lbs [facility] (F/JOHNSON/SA) BMI (Body Mass Index) 2017-09-15 16:28:00 59.9 [facility]ly [facility] (F/JOHNSON/SA) Procedures Procedure Date / Time Performed Performing Clinician Source ASST W/RESP VENT 24- CON HR CPAP 2020-01-26 00:00:00 [facility]ly [facility] (F/J[place]NSON/[place]) Tubal L[facility] Plan of Care Planned Activity Planned Date Details Comments Source Instructions [facility] Encounters Start Date/Time End Date/Time Encounter Type Admission Type Attending Clinicians Care Facility Care Department Encounter ID Source 2023-12-29 00:00:00 2023-12-29 00:00:00 RUPINDER Watts: [address] [place] [id number] , Ph. [facility] [id number] [facility] 2023-12-28 00:00:00 2023-12-28 00:00:00 Dennis Talley MD: [address] [place] [phone] , Ph. [facility] [id number] [facility] 2023-12-21 00:00:00 2023-12-21 00:00:00 Outpatient GC_BAHC_Tod d_J [facility] [id number] [facility] 2023-12-14 00:00:00 2023-12-14 00:00:00 Outpatient GC_BAHC_Tod d_J [facility] [id number] [facility] 2023-12-12 00:00:00 2023-12-12 00:00:00 RUPINDER Watts: [address] [place] [phone] , Ph. [facility] [id number] [facility] 2023-12-08 00:00:00 2023-12-08 00:00:00 Jojo Villalpando PA: [address] [place] [phone] , Ph. [facility] [id number] [facility] 2023-11-25 00:00:00 2023-11-25 00:00:00 Outpatient GC_BAHC_Tod d_J PRIV PRIV [id number] [facility] 2023-11-24 00:00:00 2023-11-24 00:00:00 RUPINDER Watts: [address] [place] [phone] , Ph. [facility] [id number] [facility] 2023-11-22 00:00:00 2023-11-22 00:00:00 Outpatient GC_BAHC_Tod d_J PRIV PRIV [id number] [facility] 2023-11-18 00:00:00 2023-11-18 00:00:00 Outpatient GC_BAHC_Tod d_J PRIV PRIV [id number] [facility] 2023-11-10 00:00:00 2023-11-10 00:00:00 Outpatient GC_BAHC_Tod d_J PRIV PRIV [id number] [facility] 2023-10-31 00:00:00 2023-10-31 00:00:00 Outpatient GC_BAHC_Tod d_J PRIV PRIV [id number] [facility] 2023-10-31 00:00:00 2023-10-31 00:00:00 Jojo Villalpando PA: [address] [place] [phone] , Ph. [facility] - [facility] [id number] [facility] 2023-10-26 00:00:00 2023-10-26 00:00:00 Dennis Talley MD: [address] [place] [phone] , Ph. [facility] - [facility] [id number] [facility] 2023-10-25 00:00:00 2023-10-25 00:00:00 Outpatient GC_BAHC_Tod d_J PRIV PRIV [id number] [facility] 2023-10-13 00:00:00 2023-10-13 00:00:00 Outpatient GC_BAHC_Tod d_J PRIV PRIV [id number] [facility] 2023-10-10 00:00:00 2023-10-10 00:00:00 Outpatient GC_BAHC_Tod d_J PRIV PRIV [id number] [facility] 2023-10-07 00:00:00 2023-10-07 00:00:00 Outpatient GC_BAHC_Tod d_J PRIV PRIV [id number] [facility] 2023-10-05 00:00:00 2023-10-05 00:00:00 Outpatient GC_BAHC_Tod d_J PRIV PRIV [id number] [facility] 2023-09-29 00:00:00 2023-09-29 00:00:00 Outpatient GC_BAHC_Tod d_J PRIV PRIV [id number] [facility] 2023-09-25 00:00:00 2023-09-25 00:00:00 Outpatient GC_BAHC_Tod d_J PRIV PRIV [id number] [facility] 2023-09-22 00:00:00 2023-09-22 00:00:00 Outpatient GC_BAHC_Tod d_J PRIV PRIV [id number] [facility] 2023-09-13 00:00:00 2023-09-13 00:00:00 Outpatient GC_BAHC_Tod d_J PRIV PRIV [id number] [facility] 2023-09-11 00:00:00 2023-09-11 00:00:00 Outpatient GC_BAHC_Tod d_J PRIV PRIV [id number] [facility] 2023-09-01 00:00:00 2023-09-01 00:00:00 Outpatient GC_BAHC_Tod d_J PRIV PRIV [id number] [facility] 2023-09-01 00:00:00 2023-09-01 00:00:00 Outpatient GC_BAHC_Tod d_J PRIV PRIV [id number] [facility] 2023-08-23 00:00:00 2023-08-23 00:00:00 Outpatient GC_BAHC_Tod d_J PRIV PRIV [id number] [facility] 2023-08-23 00:00:00 2023-08-23 00:00:00 Outpatient GC_BAHC_Tod d_J PRIV PRIV [id number] [facility] 2023-08-18 00:00:00 2023-08-18 00:00:00 Outpatient GC_BAHC_Tod d_J PRIV PRIV [id number] [facility] 2023-08-05 00:00:00 2023-08-05 00:00:00 Outpatient GC_BAHC_Tod d_J PRIV PRIV [id number] [facility] 2023-08-04 00:00:00 2023-08-04 00:00:00 Outpatient GC_BAHC_Tod d_J PRIV PRIV [id number] [facility] 2023-08-03 00:00:00 2023-08-03 00:00:00 Outpatient GC_BAHC_Tod d_J PRIV PRIV [id number] [facility] 2023-07-31 00:00:00 2023-07-31 00:00:00 Outpatient GC_BAHC_Tod d_J PRIV PRIV [id number] [facility] 2023-07-27 00:00:00 2023-07-27 00:00:00 Outpatient GC_BAHC_Tod d_J PRIV PRIV [id number] [facility] 2023-07-25 00:00:00 2023-07-25 00:00:00 Outpatient GC_BAHC_Tod d_J PRIV PRIV [id number] [facility] 2023-07-19 00:00:00 2023-07-19 00:00:00 Outpatient GC_BAHC_Tod d_J PRIV PRIV [id number] [facility] 2023-07-08 00:00:00 2023-07-08 00:00:00 Outpatient GC_BAHC_Tod d_J PRIV PRIV [id number] [facility] 2023-07-05 00:00:00 2023-07-05 00:00:00 Outpatient GC_BAHC_Tod d_J PRIV PRIV [id number] [facility] 2023-06-30 00:00:00 2023-06-30 00:00:00 Outpatient GC_BAHC_Tod d_J PRIV PRIV [id number] [facility] 2023-06-26 00:00:00 2023-06-26 00:00:00 Outpatient GC_BAHC_Tod d_J PRIV PRIV [id number] [facility] 2023-06-26 00:00:00 2023-06-26 00:00:00 Outpatient GC_BAHC_Tod d_J PRIV PRIV [id number] [facility] 2023-06-24 00:00:00 2023-06-24 00:00:00 Outpatient GC_BAHC_Tod d_J PRIV PRIV [id number] [facility] 2023-06-16 00:00:00 2023-06-16 00:00:00 Outpatient GC_BAHC_Tod d_J PRIV PRIV [id number] [facility] 2023-06-12 00:00:00 2023-06-12 00:00:00 Outpatient GC_BAHC_Tod d_J PRIV PRIV [id number] [facility] 2023-06-10 00:00:00 2023-06-10 00:00:00 Outpatient GC_BAHC_Tod d_J PRIV PRIV [id number] [facility] 2023-06-05 00:00:00 2023-06-05 00:00:00 Outpatient GC_BAHC_Tod d_J PRIV PRIV [id number] [facility] 2023-05-24 00:00:00 2023-05-24 00:00:00 Outpatient GC_BAHC_Tod d_J PRIV PRIV [id number] [facility] 2023-05-18 00:00:00 2023-05-18 00:00:00 Outpatient GC_BAHC_Tod d_J PRIV PRIV [id number] [facility] 2023-05-17 00:00:00 2023-05-17 00:00:00 Outpatient GC_BAHC_Tod d_J PRIV PRIV [id number] [facility] 2023-05-11 00:00:00 2023-05-11 00:00:00 Outpatient GC_BAHC_Tod d_J PRIV PRIV [id number] [facility] 2023-05-09 00:00:00 2023-05-09 00:00:00 Outpatient GC_BAHC_Tod d_J PRIV PRIV [id number] [facility] 2023-05-05 00:00:00 2023-05-05 00:00:00 Outpatient GC_BAHC_Tod d_J PRIV PRIV [id number] [facility] 2023-05-03 00:00:00 2023-05-03 00:00:00 Outpatient GC_BAHC_Tod d_J PRIV PRIV [id number] [facility] 2023-04-25 00:00:00 2023-04-25 00:00:00 Outpatient GC_BAHC_Tod d_J PRIV PRIV [id number] [facility] 2023-04-25 00:00:00 2023-04-25 00:00:00 Outpatient GC_BAHC_Tod d_J PRIV PRIV [id number] [facility] 2023-04-25 00:00:00 2023-04-25 00:00:00 Outpatient GC_BAHC_Tod d_J PRIV PRIV [id number] [facility] 2023-04-25 00:00:00 2023-04-25 00:00:00 Outpatient GC_BAHC_Tod d_J PRIV PRIV [id number] [facility] 2023-04-20 00:00:00 2023-04-20 00:00:00 Outpatient GC_BAHC_Tod d_J PRIV PRIV [id number] [facility] 2023-04-17 00:00:00 2023-04-17 00:00:00 Outpatient GC_BAHC_Tod d_J PRIV PRIV [id number] [facility] 2023-04-10 00:00:00 2023-04-10 00:00:00 Outpatient GC_BAHC_Tod d_J PRIV PRIV [id number] [facility] 2023-04-07 00:00:00 2023-04-07 00:00:00 Outpatient GC_BAHC_Tod d_J PRIV PRIV [id number] [facility] 2023-03-29 00:00:00 2023-03-29 00:00:00 Outpatient GC_BAHC_Tod d_J PRIV PRIV [id number] [facility] 2023-03-29 00:00:00 2023-03-29 00:00:00 Outpatient GC_BAHC_Tod d_J PRIV PRIV [id number] [facility] 2023-03-29 00:00:00 2023-03-29 00:00:00 Outpatient GC_BAHC_Tod d_J PRIV PRIV [id number] [facility] 2023-03-28 00:00:00 2023-03-28 00:00:00 Outpatient GC_BAHC_Tod d_J PRIV PRIV [id number] [facility] 2023-03-28 00:00:00 2023-03-28 00:00:00 Outpatient GC_BAHC_Tod d_J PRIV PRIV [id number] [facility] 2023-03-22 00:00:00 2023-03-22 00:00:00 Outpatient GC_BAHC_Tod d_J PRIV PRIV [id number] [facility] 2023-03-22 00:00:00 2023-03-22 00:00:00 Outpatient GC_BAHC_Tod d_J PRIV PRIV [id number] [facility] 2023-03-21 00:00:00 2023-03-21 00:00:00 Outpatient GC_BAHC_Tod d_J PRIV PRIV [id number] [facility] 2023-03-02 00:00:00 2023-03-02 00:00:00 Outpatient GC_BAHC_Tod d_J PRIV PRIV [id number] [facility] 2023-02-21 00:00:00 2023-02-21 00:00:00 Dennis Talley MD: [address] [place] [phone] , Ph. [facility] [id number] [facility] 2023-02-20 00:00:00 2023-02-20 00:00:00 Outpatient GC_BAHC_Tod d_J PRIV PRIV [id number] [facility] 2023-02-20 00:00:00 2023-02-20 00:00:00 Outpatient GC_BAHC_Tod d_J PRIV PRIV [id number] [facility] 2023-02-20 00:00:00 2023-02-20 00:00:00 Outpatient GC_BAHC_Tod d_J PRIV PRIV [id number] [facility] 2023-02-07 00:00:00 2023-02-07 00:00:00 RUPINDER Watts: [address] [place] [phone] , Ph. [facility] [id number] [facility] 2023-02-02 00:00:00 2023-02-02 00:00:00 Outpatient GC_BAHC_Tod d_J PRIV PRIV [id number] [facility] 2023-01-31 00:00:00 2023-01-31 00:00:00 Jojo Villalpando PA: [address] [place] [phone] , Ph. [facility] [id number] [facility] 2023-01-18 00:00:00 2023-01-18 00:00:00 Jojo Villalpando PA: [address] [place] [phone] , Ph. [facility] [id number] [facility] 2023-01-17 00:00:00 2023-01-17 00:00:00 Outpatient GC_BAHC_Tod d_J PRIV PRIV [id number] [facility] 2023-01-17 00:00:00 2023-01-17 00:00:00 Outpatient GC_BAHC_Tod d_J PRIV PRIV [id number] [facility] 2023-01-17 00:00:00 2023-01-17 00:00:00 Outpatient GC_BAHC_Tod d_J PRIV PRIV [id number] [facility] 2022-12-31 00:00:00 2022-12-31 00:00:00 Outpatient GC_BAHC_Tod d_J PRIV PRIV [id number] [facility] 2022-12-16 00:00:00 2022-12-16 00:00:00 Outpatient GC_BAHC_Tod d_J PRIV PRIV [id number] [facility] 2022-12-14 00:00:00 2022-12-14 00:00:00 Jojo Villalpando PA: [address] [place] [phone] , Ph. [facility] [id number] [facility] 2022-12-09 00:00:00 2022-12-09 00:00:00 Outpatient GC_BAHC_Tod d_J PRIV PRIV [id number] [facility] 2022-12-09 00:00:00 2022-12-09 00:00:00 Outpatient GC_BAHC_Tod d_J PRIV PRIV [id number] [facility] 2022-12-09 00:00:00 2022-12-09 00:00:00 RUPINDER Watts: [address] [place] [phone] , Ph. [facility] [id number] [facility] 2022-11-15 00:00:00 2022-11-15 00:00:00 Outpatient GC_BAHC_Tod d_J PRIV PRIV [id number] [facility] 2022-11-08 00:00:00 2022-11-08 00:00:00 Outpatient GC_BAHC_Tod d_J PRIV PRIV [id number] [facility] 2022-11-07 00:00:00 2022-11-07 00:00:00 Outpatient GC_BAHC_Tod d_J PRIV PRIV [id number] [facility] 2022-11-04 00:00:00 2022-11-04 00:00:00 Outpatient GC_BAHC_Tod d_J PRIV PRIV [id number] [facility] 2022-10-26 00:00:00 2022-10-26 00:00:00 Outpatient GC_BAHC_Tod d_J PRIV PRIV [id number] [facility] 2022-10-26 00:00:00 2022-10-26 00:00:00 RUPINDER Watts: [address] [place] [phone] , Ph. [facility] [id number] [facility] 2022-10-25 00:00:00 2022-10-25 00:00:00 Outpatient GC_BAHC_Tod d_J PRIV PRIV [id number] [facility] 2022-10-25 00:00:00 2022-10-25 00:00:00 Outpatient GC_BAHC_Tod d_J PRIV PRIV [id number] [facility] 2022-10-25 00:00:00 2022-10-25 00:00:00 Dennis Talley MD: [address] [place] [phone] , Ph. [facility] [id number] [facility] 2022-10-18 00:00:00 2022-10-18 00:00:00 Outpatient GC_BAHC_Tod d_J PRIV PRIV [id number] [facility] 2022-09-02 00:00:00 2022-09-02 00:00:00 Outpatient GC_BAHC_Tod d_J PRIV PRIV [id number] [facility] 2022-09-01 00:00:00 2022-09-01 00:00:00 Outpatient GC_BAHC_Tod d_J PRIV PRIV [id number] [facility] 2022-08-23 00:00:00 2022-08-23 00:00:00 RUPINDER Watts: [address] [place] [phone] , Ph. [facility] [id number] [facility] 2022-08-21 00:00:00 2022-08-21 00:00:00 Outpatient GC_BAHC_Tod d_J PRIV PRIV [id number] [facility] 2022-08-19 00:00:00 2022-08-19 00:00:00 Outpatient GC_BAHC_Tod d_J PRIV PRIV [id number] [facility] 2022-08-18 00:00:00 2022-08-18 00:00:00 Outpatient GC_BAHC_Tod d_J PRIV PRIV [id number] [facility] 2022-08-16 00:00:00 2022-08-16 00:00:00 Outpatient GC_BAHC_Tod d_J PRIV PRIV [id number] [facility] 2022-08-05 00:00:00 2022-08-05 00:00:00 Outpatient GC_BAHC_Tod d_J PRIV PRIV [id number] [facility] 2022-08-05 00:00:00 2022-08-05 00:00:00 RUPINDER Watts: [address] [place] [phone] , Ph. [facility] [id number] [facility] 2022-08-02 00:00:00 2022-08-02 00:00:00 Outpatient GC_BAHC_Tod d_J PRIV PRIV [id number] [facility] 2022-07-29 00:00:00 2022-07-29 00:00:00 Outpatient GC_BAHC_Tod d_J PRIV PRIV [id number] [facility] 2022-07-05 00:00:00 2022-07-05 00:00:00 Outpatient GC_BAHC_Tod d_J PRIV PRIV [id number] [facility] 2022-07-05 00:00:00 2022-07-05 00:00:00 RUPINDER Watts: [address] [place] [phone] , Ph. [facility] [id number] [facility] 2022-07-04 00:00:00 2022-07-04 00:00:00 Dennis Talley MD: [address] [place] [phone] , Ph. [facility] [id number] [facility] 2022-06-22 00:00:00 2022-06-22 00:00:00 Outpatient GC_BAHC_Tod d_J PRIV PRIV [id number] [facility] 2022-06-02 00:00:00 2022-06-02 00:00:00 Outpatient GC_BAHC_Tod d_J PRIV PRIV [id number] [facility] 2022-05-24 00:00:00 2022-05-24 00:00:00 Outpatient GC_BAHC_Tod d_J PRIV PRIV [id number] [facility] 2022-05-24 00:00:00 2022-05-24 00:00:00 RUPINDER Watts: [address] [place] [phone] , Ph. [facility] [id number] [facility] 2022-05-24 00:00:00 2022-05-24 00:00:00 Outpatient Jojo Villalpando [facility] [id number] 2022-05-16 00:00:00 2022-05-16 00:00:00 Outpatient GC_BAHC_Tod d_J PRIV PRIV [id number] [facility] 2022-05-12 00:00:00 2022-05-12 00:00:00 Outpatient GC_BAHC_Tod d_J PRIV PRIV [id number] [facility] 2022-05-12 00:00:00 2022-05-12 00:00:00 Outpatient Dennis Talley [facility] [id number] 2022-05-12 00:00:00 2022-05-12 00:00:00 Dennis Talley MD: [address] [place] [phone] , Ph. [facility] [id number] [facility] 2022-05-03 11:55:00 2022-05-03 11:55:00 Outpatient GC_BAHC_Tod d_J PRIV PRIV [id number] [facility] 2022-04-26 01:36:00 2022-04-26 01:36:00 Outpatient GC_BAHC_Tod d_J PRIV PRIV [id number] [facility] 2022-04-26 00:00:00 2022-04-26 00:00:00 Outpatient Jojo Villalpando [facility] [id number] 2022-04-26 00:00:00 2022-04-26 00:00:00 RUPINDER Watts: [facility] [place] [phone] , Ph. [facility] [id number] [facility] 2022-04-24 11:00:00 2022-04-24 11:00:00 Outpatient GC_BAHC_Tod d_J PRIV PRIV [id number] [facility] 2022-04-22 10:51:00 2022-04-22 10:51:00 Outpatient GC_BAHC_Tod d_J PRIV PRIV [id number] [facility] 2022-04-21 11:47:00 2022-04-21 11:47:00 Outpatient GC_BAHC_Tod d_J PRIV PRIV [id number] [facility] 2022-04-15 04:12:00 2022-04-15 04:12:00 Outpatient GC_BAHC_Tod d_J PRIV PRIV [id number] [facility] 2022-04-15 00:00:00 2022-04-15 00:00:00 RUPINDER Watts: [facility] [place] [place] [phone] , Ph. [facility] [id number] [facility] 2022-04-15 00:00:00 2022-04-15 00:00:00 Outpatient Jojo Villalpando [facility] [id number] 2022-04-13 09:13:00 2022-04-13 09:13:00 Outpatient GC_BAHC_Tod d_J PRIV PRIV [id number] [facility] 2022-04-13 00:00:00 2022-04-13 00:00:00 Outpatient Jojo Villalpando [facility] [id number] 2022-04-13 00:00:00 2022-04-13 00:00:00 Jojo Villalpando PA: [address] [place] [phone] , Ph. [facility] GC_[facility] [id number] [facility] 2022-04-10 10:44:00 2022-04-10 10:44:00 Outpatient GC_BAHC_Tod d_J [facility] [id number] [facility] 2022-04-05 04:56:00 2022-04-05 04:56:00 Outpatient GC_BAHC_Tod d_J [facility] PRIV [id number] [facility] 2022-04-05 00:00:00 2022-04-05 00:00:00 RUPINDER Watts: [address] [place] [phone] , Ph. [facility] [id number] [facility] 2022-04-05 00:00:00 2022-04-05 00:00:00 Outpatient Jojo Villalpando [facility] [id number] 2022-04-01 06:30:00 2022-04-01 06:30:00 Outpatient GC_BAHC_Tod d_J [facility] PRIV [id number] [facility] 2022-04-01 00:00:00 2022-04-01 00:00:00 Outpatient KwasiJojo [facility] [id number] 2022-04-01 00:00:00 2022-04-01 00:00:00 RUPINDER Watts: [address] [place] [phone] , Ph. [facility] [id number] [facility] 2022-03-20 10:40:00 2022-03-20 10:40:00 Outpatient GC_BAHC_Tod d_J PRIV PRIV [id number] [facility] 2022-03-19 10:41:00 2022-03-19 10:41:00 Outpatient GC_BAHC_Tod d_J PRIV PRIV [id number] [facility] 2022-03-17 02:04:00 2022-03-17 02:04:00 Outpatient GC_BAHC_Tod d_J PRIV PRIV [id number] [facility] 2022-03-17 00:00:00 2022-03-17 00:00:00 Outpatient Dennis Talley [facility] [id number] 1432-06-02 00:00:00 2022-03-17 00:00:00 Dennis Talley MD: [address] [place] [id number] , Ph. [facility] - [facility] [id number] [facility] 2022-03-11 12:36:00 2022-03-11 12:36:00 Outpatient GC_BAHC_Tod d_J PRIV PRIV [id number] [facility] 2022-03-11 00:00:00 2022-03-11 00:00:00 Outpatient KwasiJojo [facility] [id number] 2022-03-11 00:00:00 2022-03-11 00:00:00 RUPINDER Watts: [facility] [employer] [place] [address] , Ph. [facility] - GC_BAHC_[facility] [id number] [facility] 2022-02-23 10:53:00 2022-02-23 10:53:00 Outpatient GC_BAHC_Tod d_J PRIV PRIV [id number] [facility] 2022-02-15 07:51:00 2022-02-15 07:51:00 Outpatient GC_BAHC_Tod d_J PRIV PRIV [id number] [facility] 2022-02-15 00:00:00 2022-02-15 00:00:00 Outpatient Jojo Villalpando [facility] [id number] 2022-02-15 00:00:00 2022-02-15 00:00:00 RUPINDER Watts: [facility] [employer] [place] [address] , Ph. [facility] - GC_BAHC_[facility] [id number] [facility] 2022-02-11 08:21:00 2022-02-11 08:21:00 Outpatient GC_BAHC_Tod d_J PRIV PRIV [id number] [facility] 2022-02-08 08:40:00 2022-02-08 08:40:00 Outpatient GC_BAHC_Tod d_J PRIV PRIV [id number] [facility] 2022-02-03 01:01:00 2022-02-03 01:01:00 Outpatient GC_BAHC_Tod d_J PRIV PRIV [id number] [facility] 2022-02-02 12:52:00 2022-02-02 12:52:00 Outpatient GC_BAHC_Tod d_J PRIV PRIV [id number] [facility] 2022-02-01 09:12:00 2022-02-01 09:12:00 Outpatient GC_BAHC_Tod d_J [facility] PRIV [id number] [facility] 2022-01-27 11:30:00 2022-01-27 11:30:00 Outpatient GC_BAHC_Tod d_J PRIV PRIV [id number] [facility] 2022-01-27 00:00:00 2022-01-27 00:00:00 Outpatient Dennis Talley [facility] [id number] 2022-01-27 00:00:00 2022-01-27 00:00:00 Dennis Talley MD: [address] [place] [address] , Ph. [facility] - [place] [id number] [facility] 2022-01-27 00:00:00 2022-01-27 00:00:00 Outpatient Dennis Talley [facility] [id number] 2022-01-25 02:06:00 2022-01-25 02:06:00 Outpatient GC_BAHC_Tod d_J [facility] [id number] [facility] 2022-01-25 00:00:00 2022-01-25 00:00:00 Outpatient KwasiJojo [facility] [id number] 2022-01-25 00:00:00 2022-01-25 00:00:00 RUPINDER Watts: [address] [place] [address] , Ph. [facility] - [place] [id number] [facility] 2022-01-25 00:00:00 2022-01-25 00:00:00 Outpatient KwasiJojo [facility] [id number] 2022-01-24 03:10:00 2022-01-24 03:10:00 Outpatient GC_BAHC_Tod d_J [facility] [id number] [facility] 2022-01-21 05:16:00 2022-01-21 05:16:00 Outpatient GC_BAHC_Spa ngler_G [facility] [id number] [facility] 2020-02-27 12:33:00 2020-02-27 14:29:00 OTH SYMPTOMS SIGNS INVLV SYSTEM [facility], [address], [place] [address] [facility] [id number] [facility] ([facility] V/SA[facility] 2020-01-26 03:15:00 2020-01-31 15:55:00 HTN HEART DISEASE W/HEART FAIL E PILAR GOMEZ [facility], [address], [place] [address] [facility] [id number] [facility] (LUF/LI V/SA) 2020-01-04 22:01:00 2020-01-04 23:59:[address] [facility], [address] [place] [address] [facility] [id number] [facility] (LUF/LI V/SA) 2020-01-04 13:30:00 2020-01-04 18:53:00 CELLULITIS OF LEFT LOWER LIMB E ELENA DOUGLAS [facility], [address], [place] [address] [facility] [id number] [facility] (LUF/LI V/SA) 2019-11-26 14:08:00 2019-11-26 17:30:00 VENOUS INSUFF CHRONIC PERIPHERAL 1 VELMA COREY [facility], [address], [place] [address] [facility] [id number] [facility] (LUF/LI V/SA) 2018-11-15 14:59:00 2018-11-15 23:59:00 SHORTNESS OF BREATH [address] [facility], [address] [place] [address] [facility] [id number] [facility]LUF[facility]LI V/SA) 2018-06-08 11:43:00 2018-06-08 23:59:00 COPD UNSPECIFIE D 3 JUSTO DICK [facility], [address], [facility], [place] [address] [facility] [id number] [facility] (LUF/LI V/SA) 2017-09-16 00:36:00 2017-09-16 23:59:[address] [facility], [address] [place] [address] [facility] [id number] [facility] (LUF/LI V/SA) 2017-09-15 16:11:00 2017-09-15 19:30:00 CELLULITIS OF RIGHT LOWER LIMB E LAUREN PRESTON [facility], [address], [facility], [place] [address] [facility] [id number] [facility] (LUF/LI V/SA) Results Test Description Test Time Test Comments Results Result Co mments Source BASIC METABOLIC [id number] 00:56:00* Test Item Value Reference Range Interpretation Comme nts SODIUM (test code = NA) 136 mmol/L 135-145 N POTASSIUM (test code = K) 4.5 mmol/L 3.6-5.0 N CHLORIDE (test code = CL) 87 mmol/L 101-111 L CARBON DIOXIDE (test code = CO2) 41 mmol/L 21-31 H GLUCOSE (test code = GLU) 228 mg/dl 70-100 H BLOOD UREA NITROGEN (test code = BUN) 9 mg/dl 6-20 N GLOMERULAR FILTRATION RATE (test code = GFR) >=60 max estimate >60 The Glomerular Filtration Rate is a calculated parameterbased on serum Creatinine, patient age and sex. GFR valuesless than 60 mL/min/1.73 square meters are indicative ofChronic Kidney Disease. Values less than 15 mL/min/1.73square meters indicate Kidney failure. The calculation forGFR is based on the CKD-EPI (2020) calculation. This formulais race indifferent and is the recommended formula for GFRby the National Kidney Foundation for Adults.The GFR will not calculate if the sex is unknown or if thepatient's age is <18 years. CREATININE (test code = CREAT) 0.55 mg/dL 0.44-1.03 N CALCIUM (test code = CA) 8.9 mg/dL 8.5-10.5 N CBC W/AUTO [id number] 00:45:00* Test Item Value Reference Range Interpretation Comme nts WHITE BLOOD CELL (test code = WBC) 7.7 x10 3/uL 3.2-11.5 N RED BLOOD CELL (test code = RBC) 4.25 x10(6)/m 3.70-5.10 N HEMOGLOBIN (test code = HGB) 11.8 g/dL 12.0-15.0 L HEMATOCRIT (test code = HCT) 39.7 % 35.7-44.8 N MEAN CELL VOLUME (test code = MCV) 93 fL 80-100 N MEAN CELL HGB (test code = MCH) 27.8 pg 26.2-33.8 N MEAN CELL HGB CONCENTRATION (test code = MCHC) 29.7 g/dL 30.0-34.0 L RED CELL DISTRIBUTION WIDTH (test code = RDW) 15.3 % 11.3-14.5 H PLATELET COUNT (test code = PLT) 261 x10 3/uL 130-408 N MEAN PLATELET VOLUME (test c ode = MPV) 10.6 fL 8.6-12.6 N NEUTROPHIL % (test code = NT%) 75.4 % 40.0-70.0 H IMMATURE GRANULOCYTE % (test code = IG%) 0.3 % 0.0-2.0 N LYMPHOCYTE % (test code = LY%) 17.2 % 20-40 L MONOCYTE % (test code = MO%) 5.0 % 1-10 N EOSINOPHIL % (test code = EO%) 1.8 % 0.0-5.0 N BASOPHIL % (test code = BA%) 0.3 % 0.0-1.0 N NUCLEATED RBC % (test code = NRBC%) 0.0 % 0.0-0.9 N NEUTROPHIL # (test code = NT#) 5.8 x10 3/uL 1.6-7.2 N LYMPHOCYTE # (test code = LY#) 1.33 x10 3/uL 1.1-2.7 N MONOCYTE # (test code = MO#) 0.4 x10 3/uL 0.3-0.8 N EOSINOPHIL # (test code = EO#) 0.1 x10 3/uL 0.0-0.5 N BASOPHIL # (test code = BA#) 0.0 x10 3/uL 0.0-0.1 N BASIC METABOLIC [id number] 23:08:00* Test Item Value Reference Range Interpretation Comme nts SODIUM (test code = NA) 139 mmol/L 135-145 N POTASSIUM (test code = K) 4.6 mmol/L 3.6-5.0 N CHLORIDE (test code = CL) 89 mmol/L 101-111 L CARBON DIOXIDE (test code = CO2) 44 mmol/L 21-31 H GLUCOSE (test code = GLU) 270 mg/dl 70-100 H BLOOD UREA NITROGEN (test code = BUN) 11 mg/dl 6-20 N GLOMERULAR FILTRATION RATE (test code = GFR) >=60 max estimate >60 The estimated glomerular filtration rate is computed usingpatient race, age (>18), sex, and serum creatinine. If anyof the needed data elements are missing the Laboratory cannot compute an estimation of the glomerular filtration rate. CREATININE (test code = CREAT) 0.63 mg/dL 0.44-1.03 N CALCIUM (test code = CA) 8.9 mg/dL 8.5-10.5 N [id number] 22:59:00* Test Item Value Reference Range Interpretation Comme nts AMMONIA (test code = AMM) 67 umol/L 11-35 H CBC W/AUTO [id number] 22:44:00* Test Item Value Reference Range Interpretation Comme nts WHITE BLOOD CELL (test code = WBC) 8.4 x10 3/uL 3.2-11.5 N RED BLOOD CELL (test code = RBC) 3.67 x10(6)/m 3.70-5.10 L HEMOGLOBIN (test code = HGB) 10.2 g/dL 12.0-15.0 L HEMATOCRIT (test code = HCT) 35.5 % 35.7-44.8 L MEAN CELL VOLUME (test code = MCV) 97 fL 80-100 N MEAN CELL HGB (test code = MCH) 27.8 pg 26.2-33.8 N MEAN CELL HGB CONCENTRATION (test code = MCHC) 28.7 g/dL 30.0-34.0 L RED CELL DISTRIBUTION WIDTH (test code = RDW) 15.0 % 11.3-14.5 H PLATELET COUNT (test code = PLT) 263 x10 3/uL 130-408 N MEAN PLATELET VOLUME (test c ode = MPV) 10.5 fL 8.6-12.6 N NEUTROPHIL % (test code = NT%) 73.6 % 40.0-70.0 H LYMPHOCYTE % (test code = LY%) 17.2 % 20-40 L MONOCYTE % (test code = MO%) 5.6 % 1-10 N EOSINOPHIL % (test code = EO%) 2.4 % 0.0-5.0 N BASOPHIL % (test code = BA%) 0.4 % 0.0-1.0 N NUCLEATED RBC % (test code = NRBC%) 0.0 % 0.0-0.9 N NEUTROPHIL # (test code = NT#) 6.2 x10 3/uL 1.6-7.2 N LYMPHOCYTE # (test code = LY#) 1.45 x10 3/uL 1.1-2.7 N MONOCYTE # (test code = MO#) 0.5 x10 3/uL 0.3-0.8 N EOSINOPHIL # (test code = EO#) 0.2 x10 3/uL 0.0-0.5 N IMMATURE GRANULOCYTE % (test code = IG%) 0.8 % 0.0-2.0 N BASOPHIL # (test code = BA#) 0.0 x10 3/uL 0.0-0.1 N Cholesterol in LDL [Mass/volume] in Serum or [id number] 00:00:00* Test Item Value Reference Range Interpretation Comme nts Cholesterol in LDL [Mass/vol ume] in Serum or Plasma (test code = 2089-1) 55 [facility] in LDL [Mass/volume] in Serum or [id number] 00:00:00* Test Item Value Reference Range Interpretation Comme nts Cholesterol in LDL [Mass/vol ume] in Serum or Plasma (test code = 2089-1) 55 [facility] in LDL [Mass/volume] in Serum or [id number] 00:00:00* Test Item Value Reference Range Interpretation Comme nts Cholesterol in LDL [Mass/vol ume] in Serum or Plasma (test code = 2089-1) 55 Carole Lofton, [id number] 10:36:00Specimen: BloodCollected: 01/25/2020 23:40 Status: Final Last Updated: 01/31/2020 10:36 Culture Result (Final) (Final) [facility] [place] [place] [id number] 10:36:00Specimen: BloodCollected: 01/25/2020 23:40 Status: Final Last Updated: 01/31/2020 10:36 Culture Result (Final) (Final) No [place] 5 [place] [id number] 12:41:00* Test Item Value Reference Range Interpretation Comme nts Glucose (test code = GLU) 228 mg/dl 75-110 H BUN (test code = BUN) 20.0 mg/dl 6.0-17.0 H Creatinine (test code = CREA) 0.7 mg/dl 0.4-1.2 Sodium (test code = NA) 132 mmol/l 137-145 L Potassium (test code = K) 4.9 mmol/l 3.5-5.0 Chloride (test code = CL) 93 mmol/l 98-107 L CO2 (test code = CO2) 36 mmol/l 22-30 H Calcium (test code = CALC) 9.3 mg/dl 8.4-10.2 EGFR if (test code = EGFRAA) >60 mL/min/1.73m\\ S\\2 EGFR if Non- (test code = EGFRNA) >60 mL/min/1.73m\\ S\\2 Estimated Glomerular Filtration Rate (eGFR) Reference Intervals Decision Points for 18 years and older and average body mass: >= 60 Does not exclude kidney disease. 30 - 59 Suggests moderate chronic kidney disease and indicates the need for further investigation including assessment of proteinuria and cardiovascular factors. < 30 Usually indicates a need for referral for assessment and management of chronic kidney failure. [facility] 10:36:00* Test Item Value Reference Range Interpretation Comme nts Glucose (test code = GLU) 189 mg/dl 75-110 H BUN (test code = BUN) 23.0 mg/dl 6.0-17.0 H Creatinine (test code = CREA) 0.8 mg/dl 0.4-1.2 Sodium (test code = NA) 135 mmol/l 137-145 L Potassium (test code = K) 4.5 mmol/l 3.5-5.0 Chloride (test code = CL) 93 mmol/l 98-107 L CO2 (test code = CO2) 39 mmol/l 22-30 H Calcium (test code = CALC) 8.8 mg/dl 8.4-10.2 EGFR if (test code = EGFRAA) >60 mL/min/1.73m\\ S\\2 EGFR if Non- (test code = EGFRNA) >60 mL/min/1.73m\\ S\\2 Estimated Glomerular Filtration Rate (eGFR) Reference Intervals Decision Points for 18 years and older and average body mass: >= 60 Does not exclude kidney disease. 30 - 59 Suggests moderate chronic kidney disease and indicates the need for further investigation including assessment of proteinuria and cardiovascular factors. < 30 Usually indicates a need for referral for assessment and management of chronic kidney failure. [facility] WITH AUTO [id number] 09:59:00* Test Item Value Reference Range Interpretation Comme nts WBC (test code = WBC) 11.73 10\\S\\3/ul [...] (test code = IG%) 0.4 % 0.0-0.4 [facility] WITH [id number] 06:21:00 * Test Item Value Reference Range Interpretation Comme nts Color (test code = UCOLR) Yellow Clarity (test code = UCLAR) Clear Glucose (test code = UGLUC) NEGATIVE NEGATIVE N Bilirubin (test code = UBILI) NEGATIVE NEGATIVE N Ketones (test code = UKET) TRACE NEGATIVE A Specific [place] (test code = USPGR) 1.020 1.005-1.030 A Blood (test code = UBLD) Trace-Intact NEGATIVE A PH (test code = UPH) 7.0 4.5-8.0 A Protein (test code = UPROT) Trace NEGATIVE A Urobilinogen (test code = U UROB) 0.2 >0.2 N Nitrite (test code = UNITR) NEGATIVE NEGATIVE N Leukocyte Esterase (test cod e = ULEUK) NEGATIVE NEGATIVE N WBC (test code = WBCUR) 1-3 0-5 A RBC (test code = RBCUR) 3-5 0-5 A Epithial Cells (test code = U EPI) 0-1 0-10 A Mucous (test code = UMUC) Trace None Seen A Bacteria (test code = UBACT) Trace None Seen,Trace N [facility] 05:47:00* Test Item Value Reference Range Interpretation Comme nts Glucose (test code = GLU) 151 mg/dl 75-110 H BUN (test code = BUN) 22.0 mg/dl 6.0-17.0 H Creatinine (test code = CREA) 0.7 mg/dl 0.4-1.2 Sodium (test code = NA) 136 mmol/l 137-145 L Potassium (test code = K) 4.4 mmol/l 3.5-5.0 Chloride (test code = CL) 96 mmol/l 98-107 L CO2 (test code = CO2) 38 mmol/l 22-30 H Calcium (test code = CALC) 8.7 mg/dl 8.4-10.2 EGFR if (test code = EGFRAA) >60 mL/min/1.73m\\ S\\2 EGFR if Non- (test code = EGFRNA) >60 mL/min/1.73m\\ S\\2 Estimated Glomerular Filtration Rate (eGFR) Reference Intervals Decision Points for 18 years and older and average body mass: >= 60 Does not exclude kidney disease. 30 - 59 Suggests moderate chronic kidney disease and indicates the need for further investigation including assessment of proteinuria and cardiovascular factors. < 30 Usually indicates a need for referral for assessment and management of chronic kidney failure. [facility] WITH AUTO [id number] 05:46:00* Test Item Value Reference Range Interpretation Comme nts WBC (test code = WBC) 14.11 10\\S\\3/ul 4.80-10.80 H RBC (test code = RBC) 3.93 10\\S\\6/ul 4.20-5.40 L Hemoglobin (test code = HGB) 11.2 gm/dl 12.0-14.0 L Hematocrit (test code = HCT) 38.1 % 37.0-47.0 MCV (test code = MCV) 96.9 fL 81.0-99.0 MCH (test code = MCH) 28.5 pg 27.0-31.0 MCHC (test code = MCHC) 29.4 gm/dl 33.0-37.0 L RDW (test code = RDWVC) 15.9 % 11.5-14.5 H Platelet (test code = PLT) 259 10\\S\\3/ul 130-400 MPV (test code = MPV) 9.7 fL 7.4-10.4 A "NOT MEASURED" RESULTS ARE DISPLAYED WHEN THE INSTRUMENT HAS A SUPPRESSED OR UNREPORTABLE RESULT. THIS WILL MOST OFTEN HAPPEN WITH THE MPV WHEN THERE IS AN ABNORMAL PLATELET DISTRIBUTION DUE TO A CRITICAL LOW VALUE OR PLATELET CLUMPING. THE RDW MAY BE SUPPRESSED IF THERE ARE MULTIPLE PEAKS PRESENT ON THE RBC HISTOGRAM. IN THIS CASE, A MANUAL REVIEW OF THE SLIDE WILL BE PERFORMED, AND RBC MORPHOLOGY WILL BE NOTED ON THE REPORT. NE% (test code = NE) 72.6 % 42.0-75.0 LY% (test code = LY) 19.4 % 13.0-42.0 MO% (test code = MO) 6.7 % 4.0-14.0 EO% (test code = EO) 0.4 % 1.0-5.0 L BA% (test code = BA) 0.2 % 0.0-3.0 IG% (test code = IG%) 0.7 % 0.0-0.4 H [facility]2020-[facility] 04:49:00* Test Item Value Reference Range Interpretation Comme nts Glucose (test code = GLU) 288 mg/dl 75-110 H BUN (test code = BUN) 17.0 mg/dl 6.0-17.0 Creatinine (test code = CREA) 0.8 mg/dl 0.4-1.2 Sodium (test code = NA) 134 mmol/l 137-145 L Potassium (test code = K) 4.8 mmol/l 3.5-5.0 Chloride (test code = CL) 96 mmol/l 98-107 L CO2 (test code = CO2) 34 mmol/l 22-30 H Calcium (test code = CALC) 8.9 mg/dl 8.4-10.2 EGFR if (test code = EGFRAA) >60 mL/min/1.73m\\ S\\2 EGFR if Non- (test code = EGFRNA) >60 mL/min/1.73m\\ S\\2 Estimated Glomerular Filtration Rate (eGFR) Reference Intervals Decision Points for 18 years and older and average body mass: >= 60 Does not exclude kidney disease. 30 - 59 Suggests moderate chronic kidney disease and indicates the need for further investigation including assessment of proteinuria and cardiovascular factors. < 30 Usually indicates a need for referral for assessment and management of chronic kidney failure. [facility] WITH AUTO [id number] 04:24:00* Test Item Value Reference Range Interpretation Comme nts WBC (test code = WBC) 11.84 10\\S\\3/ul 4.80-10.80 H RBC (test code = RBC) 3.85 10\\S\\6/ul 4.20-5.40 L Hemoglobin (test code = HGB) 11.2 gm/dl 12.0-14.0 L Hematocrit (test code = HCT) 36.9 % 37.0-47.0 L MCV (test code = MCV) 95.8 fL 81.0-99.0 MCH (test code = MCH) 29.1 pg 27.0-31.0 MCHC (test code = MCHC) 30.4 gm/dl 33.0-37.0 L RDW (test code = RDWVC) 15.9 % 11.5-14.5 H Platelet (test code = PLT) 263 10\\S\\3/ul 130-400 MPV (test code = MPV) 10.0 fL 7.4-10.4 A "NOT MEASURED" RESULTS ARE DISPLAYED WHEN THE INSTRUMENT HAS A SUPPRESSED OR UNREPORTABLE RESULT. THIS WILL MOST OFTEN HAPPEN WITH THE MPV WHEN THERE IS AN ABNORMAL PLATELET DISTRIBUTION DUE TO A CRITICAL LOW VALUE OR PLATELET CLUMPING. THE RDW MAY BE SUPPRESSED IF THERE ARE MULTIPLE PEAKS PRESENT ON THE RBC HISTOGRAM. IN THIS CASE, A MANUAL REVIEW OF THE SLIDE WILL BE PERFORMED, AND RBC MORPHOLOGY WILL BE NOTED ON THE REPORT. NE% (test code = NE) 84.0 % 42.0-75.0 H LY% (test code = LY) 10.6 % 13.0-42.0 L MO% (test code = MO) 4.4 % 4.0-14.0 EO% (test code = EO) 0.1 % 1.0-5.0 L BA% (test code = BA) 0.2 % 0.0-3.0 IG% (test code = IG%) 0.7 % 0.0-0.4 H [facility] [id number] 21:16:00* Test Item Value Reference Range Interpretation Comme nts Troponin-I (test code = TROP) <0.015 ng/ml 0.000-0.034 N The 99th Percent ile URL is 0.045 ng/mL for the Siemens [place] Troponin I. The Joint Society of Cardiology/[place] College of Cardiology (ESC/ACC) and the National Academy of Clinical Biochemistry Standards of Laboratory Practices (NACB) recommends that the diagnosis of AMI includes the presence of clinical history suggestive of Acute Coronary Syndrome (ACS) and a maximum concentration of cardiac troponin exceeding the 99th percentile of a normal reference population [upper reference limit (URL)] on at least one occasion during the first 24 hours after the clinical event. [facility] [id number] 13:14:00* Test Item Value Reference Range Interpretation Comme nts Troponin-I (test code = TROP) <0.015 ng/ml 0.000-0.034 N The 99th Percent ile URL is 0.045 ng/mL for the Siemens [place] Troponin I. The Joint Society of Cardiology/[place] College of Cardiology (ESC/ACC) and the National Academy of Clinical Biochemistry Standards of Laboratory Practices (NACB) recommends that the diagnosis of AMI includes the presence of clinical history suggestive of Acute Coronary Syndrome (ACS) and a maximum concentration of cardiac troponin exceeding the 99th percentile of a normal reference population [upper reference limit (URL)] on at least one occasion during the first 24 hours after the clinical event. [facility]ahLACT[facility] ACID [id number] 06:06:00* Test Item Value Reference Range Interpretation Comme nts LACTATE (test code = LAC) 2.8 mmol/l 0.7-2.0 HH repeat Critical values were called to Ramón Fatima RN by [id number] on 01/26/20 06:06 CDT. Results were read back by Ramón Fatima RN.[facility]ahD-DIMER [id number] 06:02:00* Test Item Value Reference Range Interpretation Comme [facility] D DIMER (test code = D DIM) 0.98 mg/L FEU 0.19-0.50 H METHOD CHANGE: Due to the discontinued mehodology currently in use, a change in the testing method is necessary. The Reference Ranges will change dramatically, and results are obtained by the observance of clotting activation mesured on the [employer] instruments. This same methodology is currently in use for PT/INR , PTT, AND HEPARIN testing in our Labs. The D-Dimer assay is an aid in the evaluation of thromboembolic events, as in DIC, DVT, Pulmonary Embolism, and other thromboembolic diseases, and should not be used without other diagnostic measures, to properly diagnose and treat thromboembolic disease. REFERENCE RANGE: 0.19 - 0.50 mg/L FEU (Fibrinogen Equivalent Units) Cut-Off Value is: > .50 mg/L FEU Note: Results greater than (>) the Cut-Off are to be considered POSITIVE, and significant in the evaluation of thromboembolic diseases. Results less than (<) the Cut-Off are to be considered NEGATIVE, and a low probability of thromboembolic disease. [facility]ahBMP2020-04-12 05:31:00* Test Item Value Reference Range Interpretation Comme [facility] Glucose (test code = GLU) 212 mg/dl 75-110 H BUN (test code = BUN) 15.0 mg/dl 6.0-17.0 Creatinine (test code = CREA) 0.8 mg/dl 0.4-1.2 Sodium (test code = NA) 133 mmol/l 137-145 L Potassium (test code = K) 4.7 mmol/l 3.5-5.0 Chloride (test code = CL) 95 mmol/l 98-107 L CO2 (test code = CO2) 33 mmol/l 22-30 H Calcium (test code = CALC) 9.2 mg/dl 8.4-10.2 EGFR if (test code = EGFRAA) >60 mL/min/1.73m\\ S\\2 EGFR if Non- (test code = EGFRNA) >60 mL/min/1.73m\\ S\\2 Estimated Glomerular Filtration Rate (eGFR) Reference Intervals Decision Points for 18 years and older and average body mass: >= 60 Does not exclude kidney disease. 30 - 59 Suggests moderate chronic kidney disease and indicates the need for further investigation including assessment of proteinuria and cardiovascular factors. < 30 Usually indicates a need for referral for assessment and management of chronic kidney failure. [facility]ahTROPONIN-I [id number] 05:31:00* Test Item Value Reference Range Interpretation Comme nts Troponin-I (test code = TROP) <0.015 ng/ml 0.000-0.034 N The [employer] Percent ile URL is 0.045 ng/mL for the Siemens [place] Troponin I. The Joint Society of Cardiology/[place] [employer] (ESC/ACC) and the National Academy of Clinical Biochemistry Standards of Laboratory Practices (NACB) recommends that the diagnosis of AMI includes the presence of clinical history suggestive of Acute Coronary Syndrome (ACS) and a maximum concentration of cardiac troponin exceeding the 99th percentile of a normal reference population [upper reference limit (URL)] on at least one occasion during the first 24 hours after the clinical event. [facility] WITH AUTO [id number] 05:06:00* Test Item Value Reference Range Interpretation Comme nts WBC (test code = WBC) 12.60 10\\S\\3/ul [...] code = IG%) 0.9 % 0.0-0.4 H [facility]enahGLYCOSALATED [id number] 03:19:00* Test Item Value Reference Range Interpretation Comme nts Hemoglobin A1C (test code = GLYCO) 6.4 % 4.2-6.3 H WHEN TEST RESULT S FOR A1C EXCEED 14.0, THE LINEAR LIMIT OF THE INSTRUMENT, THE CALCULATED RESULT FOR THE MEAN GLUCOSE IS NOT RELIABLE. Mean Plasma Glucose (test code = MPG) 151 mg/dl 90-180 WHEN TEST RESU LTS FOR A1C EXCEED 14.0, THE LINEAR LIMIT OF THE INSTRUMENT, THE CALCULATED RESULT FOR THE MEAN GLUCOSE IS NOT RELIABLE. [facility] (Ultra Sensitive)2020-01-26 02:57:00* Test Item Value Reference Range Interpretation Comme nts TSH (test code = TSH) 5.28 mIU/L 0.47-4.68 H [facility]/PA 1 [id number] 00:53:02 EXAMINATION: XR CHEST AP/PA 1 VIEWINDICATION: [id number]: DyspneaCOMPARISON: Chest x-ray dated November 26, 2019FINDINGS: AP viewTUBES and LINES: None.LUNGS: Limited by body habitus. Lungs are well inflated. Pulmonary vascularcongestion and mild interstitial edema.PLEURA: No significant pleural effusion or pneumothorax.HEART AND MEDIASTINUM: The cardiomediastinal silhouette is enlarged.BONES AND SOFT TISSUES: No acute osseous lesion. Soft tissues areunremarkable.UPPER ABDOMEN: No free air under the diaphragm.IMPRESSION:Enlarged cardiac silhouette, pulmonary vascular congestion, and mildinterstitial edema. Underlying pneumonia cannot be excluded in the appropriateclinical context.This final report was electronically signed by Dr Jair Branch MD 01/26/202012:46 AMDictated By: JAIR BRANCHDate: 01/26/2020 00:46[facility] SELMALACTIC ACID [id number] 00:25:00* Test Item Value Reference Range Interpretation Comme nts LACTATE (test code = LAC) 2.1 mmol/l 0.7-2.0 HH Critical values were called to Renetta Donato RN by [id number] on 01/26/20 00:25 CDT. Results were readback by Renetta Donato RN.[facility]ahTROPONIN-I [id number] 00:25:00* Test Item Value Reference Range Interpretation Comme nts Troponin-I (test code = TROP) <0.015 ng/ml 0.000-0.034 N The 99th Percent ile URL is 0.045 ng/mL for the Siemens [place] Troponin I. The Joint Society of Cardiology/[place] [employer] (ESC/ACC) and the National Academy of Clinical Biochemistry Standards of Laboratory Practices (NACB) recommends that the diagnosis of AMI includes the presence of clinical history suggestive of Acute Coronary Syndrome (ACS) and a maximum concentration of cardiac troponin exceeding the 99th percentile of a normal reference population [upper reference limit (URL)] on at least one occasion during the first 24 hours after the clinical event. [facility]PRO-[facility](B-Type Natriuretic Peptide)2020-01-26 00:25:00* Test Item Value Reference Range Interpretation Comme nts Pro-BNP(B-Peptide) (test code = PROBNP) 752 pg/ml 0-125 H Critical re sult called to Renetta Donato RN; result read back [facility]NeenahCMP2020-04-12 00:23:00* Test Item Value Reference Range Interpretation Comme nts Glucose (test code = GLU) 136 mg/dl 75-110 H BUN (test code = BUN) 15.0 mg/dl 6.0-17.0 Creatinine (test code = CREA) 0.7 mg/dl 0.4-1.2 Sodium (test code = NA) 136 mmol/l 137-145 L Potassium (test code = K) 4.2 mmol/l 3.5-5.0 Chloride (test code = CL) 98 mmol/l 98-107 CO2 (test code = CO2) 35 mmol/l 22-30 H Calcium (test code = CALC) 9.0 mg/dl 8.4-10.2 T Protein (test code = TP) 7.5 gm/dl 5.1-8.7 Albumin (test code = ALB) 2.9 gm/dl 3.5-4.6 L A/G Ratio (test code = AGRAT) 0.6 % 1.1-2.2 L AST (SGOT) (test code = AST) 16 U/L 11-36 ALT (SGPT) (test code = ALT) 29 U/L 11-40 Alkaline Phos (test code = ALKP) 95 U/L 47-114 Total Bilirubin (test code = TBIL) 0.2 mg/dl 0.2-1.2 Globulin (test code = GLOBU) 4.6 gm/dl 2.3-3.5 H Calcium, Corrected (test code = CALCCORR) 9.9 mg/dl 8.4-10.2 Various formulas exist for corrected serum calcium results, each yielding different values. This corrected result was based on the formula: Corrected Calcium = SerumCalcium + [0.8 * ( 4 - SerumAlbumin)] EGFR if (test code = EGFRAA) >60 mL/min/1.73m\\ S\\2 EGFR if Non- (test code = EGFRNA) >60 mL/min/1.73m\\ S\\2 Estimated Glomerular Filtration Rate (eGFR) Reference Intervals Decision Points for 18 years and older and average body mass: >= 60 Does not exclude kidney disease. 30 - 59 Suggests moderate chronic kidney disease and indicates the need for further investigation including assessment of proteinuria and cardiovascular factors. < 30 Usually indicates a need for referral for assessment and management of chronic kidney failure. [facility]NeenahABGs2020-04-11 23:51:00* Test Item Value Reference Range Interpretation Comme nts pH (ABG) (test code = BGPH) 7.322 7.350-7.450 L pCO2(T) (test code = BGPCO2(T)) 67.8 mm Hg 35.0-45.0 HH pO2(T) (test code = BGPO2(T)) 89.6 mm Hg 80.0-100.0 sO2 (test code = BGSO2) 96.8 % 90.0-99.0 Na+ (test code = BGCNA+) 138.3 mmol/l 135.0-148.0 K+ (test code = BGCK+) 4.22 mmol/l 3.50-4.50 Ca2+ (test code = BGCCA2+) 1.190 mmol/l 1.120-1.320 Cl- (test code = BGCCL-) 94 mmol/l 98-107 L tHb (test code = BGCTHB) 10.6 gm/dl 11.5-17.4 L Hct (test code = BGHCT) 40.5 35.0-50.0 O2Hb (test code = RDZR1QO) 92.6 % 95.0-99.0 L COHb (test code = BGFCOHB) 3.80 % 0.5-2.5 H MetHB (test code = BGMETHB) <1.30 % 0.4-1.5 N Gluc (test code = BGCGLU) 130.0 mg/dl 60.0-109.9 H Lac (test code = BGCLAC) 2.10 mmol/l 0.44-2.22 Barometric Pressure (test code = BGBARO) 756.8 mm Hg 450.0-1000.0 BE(act) (test code = BGBEACT) 7 mmol/l HCO3 (test code = BGHCO3) 29 meq/L 22-26 H ctCO2(B) (test code = BGCTCO2(B)) 32 mmol/l FIO2 (fO2(I) (test code = BGFIO2) 0.38 % Drawn By (test code = BGDRAWNBY) LAUREN MINAYA Collection Date (test code = BGDTCOL) 01/25/2020 Collection Time (test code = BGCTM) 23:40 Sample Site (test code = BGSAMPLESITE) L Radial Sample Type (test code = BGSAMPLETYPE) Arterial Allens Test (test code = BGALLEN) Acceptable Notified By (test code = BGNOTIFIEDBY) LAUREN MINAYA Notified Whom (test code = BGNOTIFIEDWHOM) DR. ROB Date Notified (test code = BGDTNOTIFIED) 01/25/2020 Time Notified (test code = BGTMNOTIFIED) 23:45 O2 Device (test code = [id number]) Nasal Cannula Instrument ID (test code = BGINSTRID) [id number] Reported By (test code = BGREPORTEDBY) LAUREN MINAYA [facility] WITH AUTO [id number] 23:49:00* Test Item Value Reference Range Interpretation Comme nts WBC (test code = WBC) 13.00 10\\S\\3/ul 4.80-10.80 H RBC (test code = RBC) 3.87 10\\S\\6/ul 4.20-5.40 L Hemoglobin (test code = HGB) 11.5 gm/dl 12.0-14.0 L Hematocrit (test code = HCT) 37.2 % 37.0-47.0 MCV (test code = MCV) 96.1 fL 81.0-99.0 MCH (test code = MCH) 29.7 pg 27.0-31.0 MCHC (test code = MCHC) 30.9 gm/dl 33.0-37.0 L RDW (test code = RDWVC) 16.5 % 11.5-14.5 H Platelet (test code = PLT) 279 10\\S\\3/ul 130-400 MPV (test code = MPV) 9.6 fL 7.4-10.4 A "NOT MEASURED" RESULTS ARE DISPLAYED WHEN THE INSTRUMENT HAS A SUPPRESSED OR UNREPORTABLE RESULT. THIS WILL MOST OFTEN HAPPEN WITH THE MPV WHEN THERE IS AN ABNORMAL PLATELET DISTRIBUTION DUE TO A CRITICAL LOW VALUE OR PLATELET CLUMPING. THE RDW MAY BE SUPPRESSED IF THERE ARE MULTIPLE PEAKS PRESENT ON THE RBC HISTOGRAM. IN THIS CASE, A MANUAL REVIEW OF THE SLIDE WILL BE PERFORMED, AND RBC MORPHOLOGY WILL BE NOTED ON THE REPORT. NE% (test code = NE) 71.7 % 42.0-75.0 LY% (test code = LY) 19.1 % 13.0-42.0 MO% (test code = MO) 6.2 % 4.0-14.0 EO% (test code = EO) 1.8 % 1.0-5.0 BA% (test code = BA) 0.5 % 0.0-3.0 IG% (test code = IG%) 0.7 % 0.0-0.4 H [facility] [place][note 2]ROCK [id number] 07:53:00 Specimen: BloodCollected: 01/04/2020 15:04 Status: Final Last Updated: 01/10/2020 07:52 Culture Result (Final) (Final) No Growth [facility] [place] [id number] 07:53:00To start 15mins after 1st cultureSpecimen: BloodCollected: 01/04/2020 15:04 Status: Final Last Updated: 01/10/2020 07:52 (1) To start 15mins after 1st culture Culture Result (Final) (Final) No Growth [facility] CHAND[facility]ER [id number] 07:53:00Specimen: BloodCollected: 01/04/2020 15:04 Status: Final Last Updated: 01/10/2020 07:52 Culture Result (Final) (Final) No Growth [facility] [place] [id number] 07:53:00Specimen: BloodCollected: 01/04/2020 15:04 Status: Final Last Updated: 01/10/2020 07:52 Culture Result (Final) (Final) No Growth [facility] [place] [id number] 09:23:00MUST order Gram Stain separately WOUNDSSpecimen: WoundCollected: 01/04/2020 14:25 Status: Final Last Updated: 01/06/2020 17:37 (1) MUST order Gram Stain separately WOUNDS Culture Result (Final) (Final) Many Gram Negative Bacilli Isolate (Final) (Final) Serratia marcescens Amikacin <=2 S Cefazolin >=64 R Cefepime <=1 S CefoxitinR Ceftazidime <=1 S Ceftriaxone <=1 S Ciprofloxacin <=0.25 S Gentamicin <=1 S Levofloxacin <=0.12 S Meropenem <=0.25 S Tobramycin <=1 S Trimeth/Sulfa <=20 [facility] [id number] 07:22:00Must order gram stain separately with aerobic cultSpecimen: WoundCollected: 01/04/2020 14:25 Status: Final Last Updated: 01/06/2020 07:22 (1) Must order gram stain separately with aerobic cult Gram Stain (Final) (Final) Many RBC's Moderate Gram Negative BacilliThedacare Regional Medical Center–NeenahXR LEG (TIB/FIB) 2 [id number] 15:32:55Right tibia/fibula radiographs-4 viewsHistory: Pain.Comparison: right ankle radiographs 11/26/2019.Findings/Impression:No evidence of acute fracture or malalignment. Unchanged deformity of the medialand lateral malleoli, likely sequela of remote trauma.Soft tissue [...] 01/04/2020 3:26PMDictated By: ARNOLDO JOSÉate: 01/04/2020 15:26[facility] [id number] 15:30:00* Test Item Value Reference Range Interpretation Comme nts Glucose (test code = GLU) 185 mg/dl 75-110 H BUN (test code = BUN) 9.0 mg/dl 6.0-17.0 Creatinine (test code = CREA) 0.8 mg/dl 0.4-1.2 Sodium (test code = NA) 137 mmol/l 137-145 Potassium (test code = K) 4.0 mmol/l 3.5-5.0 Chloride (test code = CL) 102 mmol/l 98-107 CO2 (test code = CO2) 29 mmol/l 22-30 Calcium (test code = CALC) 8.6 mg/dl 8.4-10.2 T Protein (test code = TP) 7.3 gm/dl 5.1-8.7 Albumin (test code = ALB) 2.8 gm/dl 3.5-4.6 L A/G Ratio (test code = AGRAT) 0.6 % 1.1-2.2 L AST (SGOT) (test code = AST) 12 U/L 11-36 ALT (SGPT) (test code = ALT) 27 U/L 11-40 Alkaline Phos (test code = ALKP) 90 U/L 47-114 Total Bilirubin (test code = TBIL) 0.2 mg/dl 0.2-1.2 Globulin (test code = GLOBU) 4.5 gm/dl 2.3-3.5 H Calcium, Corrected (test code = CALCCORR) 9.6 mg/dl 8.4-10.2 Various formulas exist for corrected serum calcium results, each yielding different values. This corrected result was based on the formula: Corrected Calcium = SerumCalcium + [0.8 * ( 4 - SerumAlbumin)] EGFR if (test code = EGFRAA) >60 mL/min/1.73m\\ S\\2 EGFR if Non- (test code = EGFRNA) >60 mL/min/1.73m\\ S\\2 Estimated Glomerular Filtration Rate (eGFR) Reference Intervals Decision Points for 18 years and older and average body mass: >= 60 Does not exclude kidney disease. 30 - 59 Suggests moderate chronic kidney disease and indicates the need for further investigation including assessment of proteinuria and cardiovascular factors. < 30 Usually indicates a need for referral for assessment and management of chronic kidney failure. [facility]ahURINALYSIS WITH [id number] 15:28:00 * Test Item Value Reference Range Interpretation Comme nts Color (test code = UCOLR) Yellow Clarity (test code = UCLAR) Clear Glucose (test code = UGLUC) NEGATIVE NEGATIVE N Bilirubin (test code = UBILI) NEGATIVE NEGATIVE N Ketones (test code = UKET) NEGATIVE NEGATIVE N Specific [place] (test code = USPGR) >=1.030 1.005-1.030 A Blood (test code = UBLD) Trace-Intact NEGATIVE A PH (test code = UPH) 5.0 4.5-8.0 A Protein (test code = UPROT) NEGATIVE NEGATIVE N Urobilinogen (test code = U UROB) 0.2 >0.2 N Nitrite (test code = UNITR) NEGATIVE NEGATIVE N Leukocyte Esterase (test cod e = ULEUK) NEGATIVE NEGATIVE N WBC (test code = WBCUR) 0-5 0-5 N RBC (test code = RBCUR) 0-5 0-5 N Epithial Cells (test code = U EPI) 0-10 0-10 N Bacteria (test code = UBACT) Trace None Seen,Trace N [facility]NeenahCB WITH AUTO [id number] 15:07:00* Test Item Value Reference Range Interpretation Comme nts WBC (test code = WBC) 8.08 10\\S\\3/ul 4.80-10.80 RBC (test code = RBC) 4.02 10\\S\\6/ul 4.20-5.40 L Hemoglobin (test code = HGB) 11.8 gm/dl 12.0-14.0 L Hematocrit (test code = HCT) 37.2 % 37.0-47.0 MCV (test code = MCV) 92.5 fL 81.0-99.0 MCH (test code = MCH) 29.4 pg 27.0-31.0 MCHC (test code = MCHC) 31.7 gm/dl 33.0-37.0 L RDW (test code = RDWVC) 15.8 % 11.5-14.5 H Platelet (test code = PLT) 286 10\\S\\3/ul 130-400 MPV (test code = MPV) 10.0 fL 7.4-10.4 A "NOT MEASURED" RESULTS ARE DISPLAYED WHEN THE INSTRUMENT HAS A SUPPRESSED OR UNREPORTABLE RESULT. THIS WILL MOST OFTEN HAPPEN WITH THE MPV WHEN THERE IS AN ABNORMAL PLATELET DISTRIBUTION DUE TO A CRITICAL LOW VALUE OR PLATELET CLUMPING. THE RDW MAY BE SUPPRESSED IF THERE ARE MULTIPLE PEAKS PRESENT ON THE RBC HISTOGRAM. IN THIS CASE, A MANUAL REVIEW OF THE SLIDE WILL BE PERFORMED, AND RBC MORPHOLOGY WILL BE NOTED ON THE REPORT. NE% (test code = NE) 68.0 % 42.0-75.0 LY% (test code = LY) 22.6 % 13.0-42.0 MO% (test code = MO) 6.2 % 4.0-14.0 EO% (test code = EO) 2.4 % 1.0-5.0 BA% (test code = BA) 0.4 % 0.0-3.0 IG% (test code = IG%) 0.4 % 0.0-0.4 [facility] ANKLE COMP MIN 3 [id number] 16:18:18 Evaluate for gasRight ankle 3 views:History: [...] final report was electronically signed by Dr Akash Schreiber MD 11/26/20194:11 PMDictated By: AKASH SCHREIBERDate: 11/26/2019 16:11[facility] SELMAXR CHEST AP/PA 1 [id number] 16:07:03Exam: AP portable chestDATE OF EXAM: 11/26/2019 3:33 PMINDICATION: DyspneaThe study is limited by underexposure and portable technique as well as patientbody habitus. Comparison is made to 11/15/18. The lungs appear clear. Cardiacsize is at upper limits of normal. The bony thorax shows no significantabnormality.Impression:No active cardiopulmonary disease. Limited study as noted.This final report was electronically signed by Dr Akash Schreiber MD 11/26/20194:00 PMDictated By: Pamela SCHREIBER:11/26/2019 16:00[facility]TROP[facility] Quantitative 2019-11-26 15:37:00* Test Item Value Reference Range Interpretation Comme nts Troponin-I (test code = TROP) <0.015 ng/ml 0.000-0.034 N The 99th Percent ile URL is 0.045 ng/mL for the Siemens [place] Troponin I. The Joint Society of Cardiology/[place] [employer] (ESC/ACC) and the National Academy of Clinical Biochemistry Standards of Laboratory Practices (NACB) recommends that the diagnosis of AMI includes the presence of clinical history suggestive of Acute Coronary Syndrome (ACS) and a maximum concentration of cardiac troponin exceeding the 99th percentile of a normal reference population [upper reference limit (URL)] on at least one occasion during the first 24 hours after the clinical event. [facility]ahPRO-BNP(B-Type Natriuretic Peptide)2019-11-26 15:37:00* Test Item Value Reference Range Interpretation Comme [facility] Pro-BNP(B-Peptide) (test cod e = PROBNP) 20 pg/ml 0-125 [facility]NeenahCMP2020-02-11 15:37:00* Test Item Value Reference Range Interpretation Comme nts Glucose (test code = GLU) 148 mg/dl 75-110 H BUN (test code = BUN) 20.0 mg/dl 6.0-17.0 H Creatinine (test code = CREA) 0.7 mg/dl 0.4-1.2 Sodium (test code = NA) 135 mmol/l 137-145 L Potassium (test code = K) 3.8 mmol/l 3.5-5.0 Chloride (test code = CL) 99 mmol/l 98-107 CO2 (test code = CO2) 32 mmol/l 22-30 H Calcium (test code = CALC) 8.8 mg/dl 8.4-10.2 T Protein (test code = TP) 7.3 gm/dl 5.1-8.7 Albumin (test code = ALB) 2.9 gm/dl 3.5-4.6 L A/G Ratio (test code = AGRAT) 0.7 % 1.1-2.2 L AST (SGOT) (test code = AST) 14 U/L 11-36 ALT (SGPT) (test code = ALT) 30 U/L 11-40 Alkaline Phos (test code = ALKP) 85 U/L 47-114 Total Bilirubin (test code = TBIL) 0.3 mg/dl 0.2-1.2 Globulin (test code = GLOBU) 4.4 gm/dl 2.3-3.5 H Calcium, Corrected (test code = CALCCORR) 9.7 mg/dl 8.4-10.2 Various formulas exist for corrected serum calcium results, each yielding different values. This corrected result was based on the formula: Corrected Calcium = SerumCalcium + [0.8 * ( 4 - SerumAlbumin)] EGFR if (test code = EGFRAA) >60 mL/min/1.73m\\ S\\2 EGFR if Non- (test code = EGFRNA) >60 mL/min/1.73m\\ S\\2 Estimated Glomerular Filtration Rate (eGFR) Reference Intervals Decision Points for 18 years and older and average body mass: >= 60 Does not exclude kidney disease. 30 - 59 Suggests moderate chronic kidney disease and indicates the need for further investigation including assessment of proteinuria and cardiovascular factors. < 30 Usually indicates a need for referral for assessment and management of chronic kidney failure. [facility]-REACTIVE [id number] 15:26:00* Test Item Value Reference Range Interpretation Comme nts C REACTIVE PROTEIN (test cod e = CRP) 27.00 mg/dl 0.00-3.00 H [facility]NeenahPREGNANCY TEST, Serum [id number] 15:24:00* Test Item Value Reference Range Interpretation Comme nts (Serum) (test code = PREGS) Negative Negative N [facility] WITH AUTO [id number] 15:00:00* Test Item Value Reference Range Interpretation Comme nts WBC (test code = WBC) 10.06 10\\S\\3/ul 4.80-10.80 RBC (test code = RBC) 3.93 10\\S\\6/ul 4.20-5.40 L Hemoglobin (test code = HGB) 11.5 gm/dl 12.0-14.0 L Hematocrit (test code = HCT) 36.2 % 37.0-47.0 L MCV (test code = MCV) 92.1 fL 81.0-99.0 MCH (test code = MCH) 29.3 pg 27.0-31.0 MCHC (test code = MCHC) 31.8 gm/dl 33.0-37.0 L RDW (test code = RDWVC) 15.2 % 11.5-14.5 H Platelet (test code = PLT) 267 10\\S\\3/ul 130-400 MPV (test code = MPV) 9.8 fL 7.4-10.4 A "NOT MEASURED" RESULTS ARE DISPLAYED WHEN THE INSTRUMENT HAS A SUPPRESSED OR UNREPORTABLE RESULT. THIS WILL MOST OFTEN HAPPEN WITH THE MPV WHEN THERE IS AN ABNORMAL PLATELET DISTRIBUTION DUE TO A CRITICAL LOW VALUE OR PLATELET CLUMPING. THE RDW MAY BE SUPPRESSED IF THERE ARE MULTIPLE PEAKS PRESENT ON THE RBC HISTOGRAM. IN THIS CASE, A MANUAL REVIEW OF THE SLIDE WILL BE PERFORMED, AND RBC MORPHOLOGY WILL BE NOTED ON THE REPORT. NE% (test code = NE) 69.4 % 42.0-75.0 LY% (test code = LY) 22.7 % 13.0-42.0 MO% (test code = MO) 4.9 % 4.0-14.0 EO% (test code = EO) 2.4 % 1.0-5.0 BA% (test code = BA) 0.3 % 0.0-3.0 IG% (test code = IG%) 0.3 % 0.0-0.4 [facility] 2 PA [id number] 17:10:47 Procedure: XR CHEST 2 PA LATERALOrder Date: 11/15/2018 3:11 PMOrdering Provider: DR TIM Keenaninical Indication: [id number]: DyspneaComparison: 06/08/2018Findings:Cardiac size is normal.Pulmonary vasculature is normal.Mediastinal contour is normal.Aortic contour is normal.There is no consolidation or effusion.There is no mass or pneumothorax.There is no evidence of active tuberculosis.There is no skeletal abnormality.Impression: Negative PA and lateral views of the chest.This final report was electronically signed by Dr Bg Cardenas MD 11/15/20185:04 PMDictated By: BG CARDENAS.Date: 11/15/2018 17:04[facility] 2 PA [id number] 13:35:48PA and lateral chest:Exam Date: 06/08/2018Clinical Indication: COPDThe lungs are clear. Cardiac sizeis at upper limits of normal. There is novascular congestion or pleural effusion. There are no significant bonyabnormalities.Impression: No acute cardiopulmonary abnormality.This final report was electronically signed by Dr Akash Schreiber MD 06/08/20181:29 PMDictated By: AKASH SCHREIBERDate: 06/08/2018 13:35[facility]2017-12-04 10:29:00MUST order Gram Stain separately WOUNDSSpecimen: Leg RightCollected: 09/15/2017 17:54 Status: Final Last Updated: 09/18/2017 01:39 (1) MUST order Gram Stain separately WOUNDS Culture Result (Final) (Final) Many Gram Negative Bacilli Isolate (Final) (Final) Proteus mirabilis Amoxicillin/clavu <=2 S Ampicillin <=2 S Aztreonam <=1 S Cefazolin <=4 S Cefepime <=1 S Ceftriaxone <=1 S Ciprofloxacin <=0.25 S Gentamicin <=1 S Levofloxacin <=0.12 S Meropenem <=0.25 S Tetracycline >=16 R [facility] [id number] 07:23:00Specimen: Urine SpecimensCollected: 09/15/2017 17:55 Status: Final Last Updated: 09/18/2017 07:23 Culture Result (Final) (Final) No Growth After 48 HoursThe[facility]NeenahGRAM [id number] 13:27:00Must order gram stain separately with aerobic cultSpecimen: Leg RightCollected: 09/15/2017 17:54 Status: Final Last Updated: 09/17/2017 13:27 (1) Must order gram stain separately with aerobic cult Gram Stain (Final) (Final) No Cells Seen Rare Gram Negative BacilliMewyrial Medical Center-LivingstonXR ANKLE [id number] 18:22:06EXAM: XR ANKLE 2VWS, RIGHTDATE: 09/15/2017 4:52 [...] malleolus, worrisomefor underlying osteomyelitis given the provided his tory.This final report was electronically signed by Dr Juan Mckinnon DO 09/15/2017 6:15PMDictated By:JUAN MCKINNONDate: 09/15/2017 18:22[facility] [id number] 18:11:00* Test Item Value Reference Range Interpretation Comme nts Glucose (test code = GLU) 92 mg/dl 75-110 BUN (test code = BUN) 11.0 mg/dl 6.0-17.0 Creatinine (test code = CREA) 0.8 mg/dl 0.4-1.2 Sodium (test code = NA) 140 mmol/l 137-145 Potassium (test code = K) 4.5 mmol/l 3.5-5.0 Chloride (test code = CL) 102 mmol/l 98-107 CO2 (test code = CO2) 36 mmol/l 22-30 H Anion Gap (test code = GAP) 2 Calcium (test code = CALC) 8.8 mg/dl 8.4-10.2 T Protein (test code = TP) 6.9 gm/dl 5.1-8.7 Albumin (test code = ALB) 3.4 gm/dl 3.5-4.6 L A/G Ratio (test code = AGRAT) 1.0 % 1.1-2.2 L AST (SGOT) (test code = AST) 43 U/L 11-36 H ALT (SGPT) (test code = ALT) 20 U/L 11-40 Alkaline Phos (test code = ALKP) 72 U/L 47-114 Total Bilirubin (test code = TBIL) 0.3 mg/dl 0.2-1.2 Globulin (test code = GLOBU) 3.5 gm/dl 2.3-3.5 Calcium, Corrected (test code = CALCCORR) 9.3 mg/dl 8.4-10.2 Various formulas exist for corrected serum calcium results, each yielding different values. This corrected result was based on the formula: Corrected Calcium = SerumCalcium + [0.8 * ( 4 - SerumAlbumin)] EGFR if (test code = EGFRAA) >60 mL/min/1.73m\\ S\\2 EGFR if Non- (test code = EGFRNA) >60 mL/min/1.73m\\ S\\2 Estimated Glomerular Filtration Rate (eGFR) Reference Intervals Decision Points for 18 years and older and average body mass: >= 60 Does not exclude kidney disease. 30 - 59 Suggests moderate chronic kidney disease and indicates the need for further investigation including assessment of proteinuria and cardiovascular factors. < 30 Usually indicates a need for referral for assessment and management of chronic kidney failure. [facility]ahURINALYSIS WITH [id number] 18:06:00 * Test Item Value Reference Range Interpretation Comme nts Color (test code = UCOLR) Yellow Clarity (test code = UCLAR) CLEAR Glucose (test code = UGLUC) NEGATIVE NEGATIVE N Bilirubin (test code = UBILI) NEGATIVE NEGATIVE N Ketones (test code = UKET) NEGATIVE NEGATIVE N Specific [place] (test code = USPGR) 1.025 1.005-1.030 A Blood (test code = UBLD) NEGATIVE NEGATIVE N PH (test code = UPH) 6.0 4.5-8.0 A Protein (test code = UPROT) NEGATIVE NEGATIVE N Urobilinogen (test code = U UROB) 0.2 >0.2 N Nitrite (test code = UNITR) NEGATIVE NEGATIVE N Leukocyte Esterase (test cod e = ULEUK) NEGATIVE NEGATIVE N WBC (test code = WBCUR) 0-2 0-5 A RBC (test code = RBCUR) None Seen 0-5 A Epithial Cells (test code = U EPI) 5-10 0-10 A Mucous (test code = UMUC) Trace None Seen A Bacteria (test code = UBACT) Trace None Seen,Trace N [facility], Urine [id number] 18:02:00* Test Item Value Reference Range Interpretation Comme nts (Urine) (test code = PREGU) Negative If a specimen is collected by a nurse, then you MUST fill out the Collected and Collected By rankin [facility] WITH AUTO [id number] 17:55:00* Test Item Value Reference Range Interpretation Comme nts WBC (test code = WBC) 11.17 10\\S\\3/ul 4.80-10.80 H RBC (test code = RBC) 4.16 10\\S\\6/ul 4.20-5.40 L Hemoglobin (test code = HGB) 11.3 gm/dl 12.0-14.0 L Hematocrit (test code = HCT) 36.2 % 37.0-47.0 L MCV (test code = MCV) 87.0 fL 81.0-99.0 MCH (test code = MCH) 27.2 pg 27.0-31.0 MCHC (test code = MCHC) 31.2 gm/dl 33.0-37.0 L RDW (test code = RDWVC) 14.4 % 11.5-14.5 Platelet (test code = PLT) 287 10\\S\\3/ul 130-400 MPV (test code = MPV) 9.7 fL 7.4-10.4 A "NOT MEASURED" RESULTS ARE DISPLAYED WHEN THE INSTRUMENT HAS A SUPPRESSED OR UNREPORTABLE RESULT. THIS WILL MOST OFTEN HAPPEN WITH THE MPV WHEN THERE IS AN ABNORMAL PLATELET DISTRIBUTION DUE TO A CRITICAL LOW VALUE OR PLATELET CLUMPING. THE RDW MAY BE SUPPRESSED IF THERE ARE MULTIPLE PEAKS PRESENT ON THE RBC HISTOGRAM. IN THIS CASE, A MANUAL REVIEW OF THE SLIDE WILL BE PERFORMED, AND RBC MORPHOLOGY WILL BE NOTED ON THE REPORT. NE% (test code = NE) 64.3 % 42.0-75.0 LY% (test code = LY) 25.5 % 13.0-42.0 MO% (test code = MO) 5.2 % 4.0-14.0 EO% (test code = EO) 4.2 % 1.0-3.0 H BA% (test code = BA) 0.4 % 1.0-3.0 L IG% (test code = IG%) 0.4 % 0.0-0.4 AUTO [facility] Notes Date/Time Note Provider Source 2020-02-27 14:29:00 [id number]/[id number] cBQ2AHjO [id number]:29:00Dis charge Instructions 2Discharge Diagnosisfoley cathImportant InformationConsult your physician or return to the Emergency Department immediately if worse, if not better as expected, or if any problems arise.Follow Up CareYesImportant InformationPlease understand that you have received care only on an emergency basis. If your condition does not improve, you should call your personal physician for follow-up care. If you do not have a physician, you may call the referred physician listed.If you have questions about your care or these discharge instructions, you may call the Emergency Department. Please take your discharge paperwork with you to any follow-up appointments.Follow-Up With:Primary Care PhysicianActivity LevelAs tolerated, unrestrictedDietRegularDischarge InstructionsDischarge InstructionsDischarge Instructions 2020-02-27 (Encounter: [id number] for patient careSTB[facility] ([facility])[id number]:09:23 [facility] ([facility]) 2020-01-31 15:55:00 [id number] cGifm8ah EGxlJeectI+D1bXXIvIxfYxw+[id number]:55:00Dis charge InstructionsIV Removed 01/31/2020Discharge DiagnosisAcute respiratory failure with hypoxia, hypercapciaDate/Time of Follow Up Appt # 08:30Physician Name for Follow Up Appt #1Follow up with PCP (Katie Fofana) on February 07, 2020 at 8:30 am for CBC and CMP [phone]/Time of Follow Up Appt # 14:00Physician Name for Follow Up Appt #2Follow up with Dr. Antunez (buildings and grounds superintendent) on February 18, 2020 at 2:00 pm [phone] Name, Date/Time For Follow Up Appt #3Follow up with Dr. Ortiz (computer field technician) in 1-2 weeks [phone] Name, Date/Time For Follow Up Appt #4Per Shannan Lundberg with [facility], criteria not met for COVID-19 testing. Please call the hotline at [phone] (M-F 8 am to 4 pm) or the 24 hr hotline at [phone] if you develop high fevers, increasing shortness of breath, or worsening cough.Discharge Blood Hwupk081Pkvihzfbd Atbapd753 kgActivity LevelAs tolerated, unrestrictedMedicationsContinue Present MedicationsPrescriptions Called To PharmacyTake all medications as listed on your Discharge Medication List as directedDO NOT STOP taking your medicine(s) until directed by your doctor.DietLow Sodium - 2 gm per dayOtherDischarge InstructionsPatient education providedFollow Up CareYesScheduled AppointmentReadmission Risk (LACE Score)10Written Discharge Plan given to the Patient at the time of discharge contains:Reason for hospitalizationDischarge medications including what medications to take, how to take them, and how to obtain the medication.Patient / family / caregiver given instructions on what to do if their condition changes.Coordination and planning for follow-up appointments that the patient can keep.Pneumonia VaccineDoes Not Meet CriteriaInfluenza Vaccine NOT Given, State Reason(s) Below:Previously immunized during this flu seasonDischarge Instructions 2Wound / Incision CareDressings changed on 01/31/2020.[facility] & [facility] [phone] / Medical Supplies Name & [facility] Number[facility] [place] [phone] Measure / Get with the Guidelines (AMI/HF)Review Discharge Medications with patient for next dose timesAspirin (AMI)NAJMA Inhibitor (AMI/HF)Discharge EducationCopy of Discharge Medication ListDiscussed New / Changed MedicationsDischarge Medication EducationTake all medications as listed on your Discharge Medication List as directedRemember: Get permission from your doctor before taking any additional medications like vitamins, herbal medications, sexual dysfunction pills, alcoholic beverages or any medications you get at your pharmacy without a prescriptionCarry a complete, up-to-date list of your home medications with you at all timesYour medication list should be updated when medications are discontinued, doses are changed or new medications are added. A copy of your completed discharge Medication List is attached.Notify Physician if You Experience:Worsening of conditionPersonal Belongings Returned To Patient/FamilyN/AValuables Returned To Patient/FamilyN/APre-Admission Medications Returned To Patient/FamilyN/APatient/Significant Other Education AcknowledgementI hereby acknowledge receiving the explanation of the attached instructions. I was able to "teach back" my health information and education to my nurse and I understand what I was taught as indicated by my signature below.Discharge Instructions Explained ToPatientPATIENT TIPSA Readmission Is WhenI am admitted to the hospital after being discharged for the same diagnosis (condition).I Can Help Prevent a Readmission by Understanding My Discharge InstructionsKnow what I need to do before and after I leave the hospitalAsk questions early and oftenAsk when I don't understand my follow-up care instructionsArrange for the support and follow-up care I will need post dischargeI Can Help Prevent a Readmission by Knowing My Diagnosis (Condition)Understand my main medical problem or conditionKnow the potential complications and who to call if I need assistanceLearn how my condition impacts me and my familyI Can Help Prevent a Readmission By Following Up With My CareBe sure to communicate with my primary care providerAsk my healthcare team to help me find a primary care provider if I don't have oneSchedule and go to all my follow-up appointmentsKeep a medical journal and bring it to all my appointmentsTell my primary care physician and other providers that I was admitted to the hospitalAsk my provider if they have received all of my test results and medical reportsAsk questions at the follow-up visit about what I need to do and why I need to do itUnderstand and follow my post-discharge activity and dietary plansI Can Help Prevent a Readmission By Protecting Myself From InfectionsAvoid people who are sickWash my hands oftenLearn how my condition impacts me and my familyI Can Help Prevent a Readmission by Managing My MedicationsUnderstand my post-discharge medications and if they are different than before admissionKeep a current list of my medications, including hyov-rrz-cqzhyhv and herbal medications (note any allergies)Bring my current medication list to appointments and review the list with my doctorsUpdate my medication list when my medications changeTake my medications as directedUnderstand what medications to take and when, and why it is important to take my medicationsKnow the reason for taking my medication and how they help with my conditionLet my healthcare providers know if I am having problems taking my medicationsDischarge InstructionsDischarge InstructionsDischarge Instructions 2020-01-31 (Encounter: [id number] for patient [facility] ([facility])[id number]:09:22 [facility] ([facility]) 2020-01-04 18:53:00 [id number] APMEJpku Xj2cfpLfVzQFFcuzI52L0ZWE1J8764-44-69H34:53:00Dis charge Instructions 2Discharge DiagnosisCellulitisImportant InformationConsult your physician or return to the Emergency Department immediately if worse, if not better as expected, or if any problems arise.Follow Up CareYesImportant InformationPlease understand that you have received care only on an emergency basis. If your condition does not improve, you should call your personal physician for follow-up care. If you do not have a physician, you may call the referred physician listed.If you have questions about your care or these discharge instructions, you may call the Emergency Department. Please take your discharge paperwork with you to any follow-up appointments.Follow Up CarePatient To ScheduleFollow-Up With:Primary Care PhysicianActivity LevelAs tolerated, unrestrictedDietRegularPrescriptions Given Via:Electronically sent to patient's preferred pharmacy.Patient TeachingPatient education providedAntimicrobial Stewardship Patient EducationDisease ProcessDressing ChangePain ControlWound CareDischarge InstructionsDischarge InstructionsDischarge Instructions 2020-01-04 (Encounter: [id number] for patient [facility] ([facility])[id number]:09:22 [facility] ([place]) 2019-11-26 17:30:00 [id number] oPLQkwEH g/YxKSLowGljuLD5SQnrIvqshh0066-28-51F78:30:00Dis charge Instructions 2Discharge DiagnosisChronic WoundsImportant InformationConsult your physician or return to the Emergency Department immediately if worse, if not better as expected, or if any problems arise.Please understand that you have received care only on an emergency basis. If your condition does not improve, you should call your personal physician for follow-up care. If you do not have a physician, you may call the referred physician listed.If you have questions about your care or these discharge instructions, you may call the Emergency Department. Please take your discharge paperwork with you to any follow-up appointments.Follow-Up With:Primary Care PhysicianFollow-Up Notes:follow up with wound care [place] for further evaluation and treatment, if symptoms persist or worsen, please return to the ERActivity LevelAs tolerated, unrestrictedDietRegularPrescriptions Given Via:Printed and given to patient/caregiver.Patient TeachingPatient education providedActivitiesDietaryResourcesDischarge InstructionsDischarge InstructionsDischarge Instructions 2019-11-26 (Encounter: [id number] for patient careSTB[facility] ([facility])[id number]:09:22 [facility] ([place]) 2017-09-15 19:30:00 [id number] RGPRnMAJ [id number]:30:00Dis charge Instructions 2Discharge Diagnosiscellulitis / skin yeast infectionImportant InformationConsult your physician or return to the Emergency Department immediately if worse, if not better as expected, or if any problems arise.Follow Up CareYesImportant InformationPlease understand that you have received care only on an emergency basis. If your condition does not improve, you should call your personal physician for follow-up care. If you do not have a physician, you may call the referred physician listed.If you have questions about your care or these discharge instructions, you may call the Emergency Department. Please take your discharge paperwork with you to any follow-up appointments.Follow-Up With:Primary Care PhysicianFollow-Up Notes:pt told to follow up for wound care - given clinics in surrounding areaActivity LevelAs tolerated, unrestrictedDietRegularPrescriptions Given Via:Printed and given to patient/caregiver.Patient TeachingPatient education providedDischarge InstructionsDischarge InstructionsDischarge Instructions 2017-09-15 (Encounter: [id number] for patient careSTLMBaylor Scott & [facility] ([facility]/)[id number]:09:21 [facility] ([facility])
[2024-01-24] MEDS ORDERED: ALBUTEROL 2.5 MG/3 ML NEB SOL ONE (11:36)
[2024-01-24] MEDS ORDERED: IPRATROPIUM BROM 0.5MG/2.5ML ONE (11:36)
[2024-01-24 11:39] LABS: Arterial Blood Carboxyhemoglob 2.3 % (0-1.5); Blood Gas Oxyhemoglobin 94.6 % (94-97); Blood Gas THB 10.5 g/dl (12-18); Blood O2 Saturation 98.2 % (92-98.5)
[2024-01-24 12:04] LABS: Absolute Basophils 0.1 K/uL (0-0.5); Absolute Eosinophils 0.2 K/uL (0-0.5); Absolute Monocytes 0.5 K/uL (0.1-1.3); Absolute Neutrophil 6.5 K/uL (1.8-8.0); Basophils % 1.2 % (0-1.3); Eosinophils % 1.9 % (0-4.4); Hematocrit 31.2 % (36.0-45.0); Hemoglobin 9.9 g/dL (12.0-15.0); Lymphocytes % 12.3 % (15.3-44.8); MCH 31.6 pg (27.0-35.0); MCHC 31.7 g/dL (32.0-36.0); MCV 99.7 fL (80-100); MPV 8.5 fL (7.6-11.3); Monocytes % 6.5 % (3.3-12.3); Neutrophils % 78.1 % (41.7-73.7); Nucleated Red Blood Cells % 0.1 % (0-0); Platelets 328 thou/uL (152-406); RBC Red Blood Cell Count 3.13 M/uL (3.86-4.86); Red Cell Distribution Width 17.9 % (12.1-15.2)
--- NOTE | 2024-01-24 12:04 | RAD REPORT ---
EXAM DESCRIPTION: RAD - Chest Single View - 01/24/2024 11:59 am CLINICAL HISTORY: DYSPNEA Chest pain. COMPARISON: Chest Single View dated 08/22/2023; Chest Single View dated 08/21/2023; Chest Single View dated 08/18/2023; Chest Single View dated 08/14/2023 FINDINGS: Portable technique limits examination quality. Extensive bilateral pulmonary opacities are present, greatest in the medial right lung base. This may represent pneumonia or pulmonary edema. The heart is mildly enlarged in size. No displaced fractures .
[2024-01-24 12:20] LABS: SARS-CoV-2 Antigen CONTROL BLUE LINE VIS/BG OK; SARS-CoV-2 Antigen Rapid Res Negative (Negative)
[2024-01-24 12:21] LABS: Anion Gap 4.9 mEq/L (5.0-15.0); Potassium 3.9 mEq/L (3.5-5.1); Troponin High Sensitivity 8.1 pg/mL (<58.9)
[2024-01-24] MEDS ORDERED: Levofloxacin 750mg IV 750 MG/150 ML BAG IV ONE (12:56)
[2024-01-24 13:48] LABS: Arterial Blood Carboxyhemoglob 2.1 % (0-1.5); Blood Gas THB 10.1 g/dl (12-18); Blood O2 Saturation 92.3 % (92-98.5)
[2024-01-24] MEDS ORDERED: KETAMINE HCL IN 0.9 % NACL 50 MG/5 ML SYRINGE IV ONE (14:04)
[2024-01-24] MEDS ORDERED: ROCURONIUM 50 MG/5 ML VIAL IV ONE (14:04)
[2024-01-24] MEDS ORDERED: SUCCINYLCHOLINE 20 MG/ML (10 ML) IV ONE (14:05)
[2024-01-24] MEDS ORDERED: propofoL 1,000 MG/100 ML VIAL IV ONE ×3 (14:06→16:23)
[2024-01-24] MEDS ORDERED: NA CHLORIDE 0.9% 500 ML ONE (14:07)
--- NOTE | 2024-01-24 14:23 | ER ---
Nurse's Notes [facility] Name: Courtney Sawyer Age: 48 yrs Sex: Female : 1975 Arrival Date: 01/24/2024 Time: 11:20 Bed 3 Private MD: Diagnosis: Acute and chronic respiratory failure;Acute respiratory failure with hypercapnia Presentation: 01/23 11:22 Ebola Screen: No symptoms or risks identified at this time. Initial Sepsis Screen: Does ph the patient meet any 2 criteria? No. Patient's initial sepsis screen is negative. Does the patient have a suspected source of infection? No. Patient's initial sepsis screen is negative. 11:24 Chief complaint: EMS states: From [facility], called for low Spo2, pt uses ph oxygen at 3L NC, when EMS arrived pt was 78% RA, oxygen tubing was kinked, pt is also supposed to be on c-pap at night but has not used in many days, improved to 94% on NC, 98% on NRB, unable to tolerate EMS c-pap. Coronavirus screen: Vaccine status: Patient reports receiving the 2nd dose of the covid vaccine. Risk Assessment: Do you want to hurt yourself or someone else? Patient reports no desire to harm self or others. Onset of symptoms was January 24, 2024. 11:24 Method Of Arrival: EMS: [facility] ph 11:24 Acuity: LAURI 2 ph Historical: - Allergies: 11:32 Adhesives; ph 11:32 Cephalexin; ph 11:32 Codeine; ph 11:32 Keflex; ph 11:32 Tylenol; ph - PMHx: 11:32 Anemia; Asthma; CHF; COPD; Dementia; depressive disorder; diabetes mellitus; GERD; ph Hypertensive disorder; Obesity; - Immunization history:: Adult Immunizations unknown. - Infectious Disease History:: Denies. - Social history:: Smoking status: unknown. Screenin:40 [facility] ED Fall Risk Assessment (Adult) History of falling in the last 3 months, kc6 including since admission No falls in past 3 months (0 pts) Confusion or Disorientation No (0 pts) Intoxicated or Sedated No (0 pts) Impaired Gait No (0 pts) Mobility Assist Device Used No (0 pt) Altered Elimination No (0 pt) Score/Fall Risk Level 0 - 2 = Low Risk. Abuse screen: Denies threats or abuse. Denies injuries from another. Nutritional screening: No deficits noted. Tuberculosis screening: No symptoms or risk factors identified. Assessment: 11:22 Reassessment: RT at bedside, pt placed on bi-pap. ph 11:41 General: Appears in no apparent distress. uncomfortable, obese, unkempt, Behavior is kc6 calm, cooperative, appropriate for age. Pain: Denies pain. Neuro: Level of Consciousness is awake, alert, obeys commands, Oriented to person, place. Cardiovascular: Denies chest pain, Heart tones S1 S2 present Capillary refill < 3 seconds Rhythm is sinus rhythm. Respiratory: Reports shortness of breath at rest Airway is patent Trachea midline Respiratory effort is even, labored, Respiratory pattern is regular, symmetrical, Breath sounds are clear bilaterally. GI: No signs and/or symptoms were reported involving the gastrointestinal system. : No signs and/or symptoms were reported regarding the genitourinary system. EENT: No signs and/or symptoms were reported regarding the EENT system. Derm: No signs and/or symptoms reported regarding the dermatologic system. Skin is intact, is healthy with good turgor, Skin is pink, warm \T\ dry. Musculoskeletal: No signs and/or symptoms reported regarding the musculoskeletal system. Circulation, motion, and sensation intact. Capillary refill < 3 seconds, Range of motion: intact in all extremities. 12:15 Reassessment: Patient appears in no apparent distress at this time. No changes from kc6 previously documented assessment. Patient and/or family updated on plan of care and expected duration. Pain level reassessed. 13:12 Reassessment: Patient appears in no apparent distress at this time. No changes from kc6 previously documented assessment. Patient and/or family updated on plan of care and expected duration. Pain level reassessed. 15:14 Reassessment: Patient appears in no apparent distress at this time. No changes from kc6 previously documented assessment. Patient and/or family updated on plan of care and expected duration. Pain level reassessed. 15:40 Reassessment: Patient appears in no apparent distress at this time. No changes from kc6 previously documented assessment. Patient and/or family updated on plan of care and expected duration. Pain level reassessed. nurse to nurse report given to FREDERICK shaw. Vital Signs: 11:21 Pulse Ox 89% on Non-rebreather mask; ph 11:41 BP 128 / 70; Pulse 93; Resp 19 S; Pulse Ox 95% on BiPAP; Weight 204.12 kg; kc6 12:15 BP 109 / 56; Pulse 91; Resp 20 S; Pulse Ox 98% on BiPAP; kc6 13:12 BP 112 / 72; Pulse 86; Resp 20 S; Pulse Ox 92% on BiPAP; ld1 13:48 BP 102 / 53; Pulse 91; Resp 19 S; Pulse Ox 91% on BiPAP; kc6 14:28 BP 151 / 85; Pulse 84; Resp 25 S; Pulse Ox 92% on ETT vent; kc6 14:50 BP 119 / 105; Pulse 73; Resp 20; Pulse Ox 97% on ETT vent; ph 14:50 Weight 235 kg; ph 15:14 BP 101 / 54; Pulse 71; Resp 16 S; Pulse Ox 97% on ETT vent; kc6 15:40 BP 107 / 51; Pulse 73; Resp 16 S; Pulse Ox 98% on ETT vent; kc6 ED Course: 11:21 Patient arrived in ED. ph 11:21 Lincoln Brown MD is Attending Physician. ec2 11:24 Maintain EMS IV. Dressing intact. Good blood return noted. Site clean \T\ dry. Gauge \T\ raphael 6 site: 20G LAC. O2 via bipap. 11:31 Triage completed. ph 11:33 Arm band placed on Patient placed in an exam room, on a stretcher, on oxygen, on ph awake overnight monitor, on pulse oximetry. 11:40 SARS RAPID Sent. kc6 11:40 Influenza Screen (a \T\ B) Sent. kc6 11:40 EKG completed in triage. Results shown to MD. kc6 11:40 Patient has correct armband on for positive identification. Placed in gown. Bed in low kc6 position. Call light in reach. Side rails up X2. Client placed on continuous cardiac and pulse oximetry monitoring. NIBP monitoring applied. cafeteria monitor on. Door closed. Noise minimized. Lights dimmed. Warm blanket given. Pillow given. 11:42 Naomi Ibanez, FREDERICK is Primary Nurse. kc6 12:00 XRAY Chest (1 view) In Process Unspecified. EDMS 14:12 One-on-one care X 45 minutes. kc6 14:17 Assisted provider with intubation using 7.5 mm ETT via oral route. ET tube secured at kc6 26cm at the lips. Set up intubation tray. Intubated by Lincoln Brown MD Placement verified by CO2 detector w/ + color change, auscultating bilateral breath sounds, CXR, Patient tolerated well. 14:23 Daniel Carvalho MD is Hospitalizing Provider. ec2 14:23 NGT: inserted 14 Fr. other oral gastric verified placement of air over stomach, kc6 Placement verified by X-ray, to intermittent suction. Patient tolerated well. 14:40 CXR XRAY In Process Unspecified. EDMS 15:08 Goldman cath inserted, using sterile technique, 16 Fr., by ma, balloon inflated, to kc6 gravity drainage, clamped. returned cloudy urine. Patient tolerated well. Administered Medications: 11:42 Drug: DuoNeb Nebulize (3:1) (2.5 mg - 0.5 mg) 3 ml Nebulizer once Route: Nebulizer; kc6 11:59 Follow up: Response: No adverse reaction kc6 13:11 Drug: levofloxacin IVPB 750 mg 150 ml IVPB once over 90 mins Volume: 150 ml; Route: ph IVPB; Infused Over: 90 mins; Site: left forearm; 15:40 Follow up: Response: No adverse reaction; IV Status: Completed infusion; IV Intake: kc6 150ml 14:05 CANCELLED (Physician Discretion): mg IVP once ec2 14:12 Drug: Ketamine IVP 250 mg IVP once Route: IVP; Site: left forearm; kc6 15:40 Follow up: Response: No adverse reaction; RASS: Moderate sedation (-3) kc6 14:12 Drug: Succinylcholine IVP 400 mg IVP once Route: IVP; Site: left forearm; kc6 15:41 Follow up: Response: No adverse reaction; RASS: Moderate sedation (-3) kc6 14:31 Drug: Propofol IV 5 mcg/kg/min IV at calculated rate See Administration Instructions; kc6 Standard concentration 1000 mg / 100 mL; Recommended max rate 50 mcg/kg/min; Titrate 2 mcg/kg/min every 5 minutes to achieve goal (see titration policy); Goal parameter RASS score 0 to -2 Route: IV; Rate: calculated rate; Site: left forearm; 14:35 Drug: Ondansetron IVP 4 mg IVP once; over 2 minutes Route: IVP; Site: left forearm; ph 15:41 Follow up: Response: No adverse reaction kc6 15:35 Drug: NS 0.9% IV 500 ml IV at bolus once Route: IV; Rate: bolus; Site: left forearm; kc6 Medication: 11:22 VIS not applicable for this client. ph Intake: 15:40 IV: 150ml; Total: 150ml. kc6 Outcome: 14:23 Decision to Hospitalize by Provider. ec2 16:01 Patient left the ED. ph Signatures: Dispatcher [employer] EDConnie Vitale RN RN ph Damaris Roque RN RN bennett1 Naomi Ibanez RN RN kc6 Lincoln Brown MD MD ec2 Corrections: (The following items were deleted from the chart) 14:00 11:41 Neuro: Level of Consciousness is awake, alert, obeys commands, Oriented to kc6 person, place, time, situation, Appropriate for age kc6 14:00 12:15 Reassessment: Patient appears in no apparent distress at this time. No changes kc6 from previously documented assessment. Patient and/or family updated on plan of care and expected duration. Pain level reassessed. Patient is alert, oriented x 3, equal unlabored respirations, skin warm/dry/pink. kc6 14:00 13:12 Reassessment: Patient appears in no apparent distress at this time. No changes kc6 from previously documented assessment. Patient and/or family updated on plan of care and expected duration. Pain level reassessed. Patient is alert, oriented x 3, equal unlabored respirations, skin warm/dry/pink. ld1 14:50 14:49 Ondansetron IVP 4 mg IVP in left forearm ph ph
--- NOTE | 2024-01-24 14:24 | EDPHYS ---
Physician Documentation [facility] Name: Courtney Sawyer Age: 48 yrs Sex: Female : 1975 Arrival Date: 01/24/2024 Time: 11:20 Bed 3 Private MD: ED Physician Lincoln Brown HPI: 01/23 11:22 This 48 yrs old Female presents to ER via Unassigned with complaints of Breathing ec2 Difficulty. 11:22 Patient arrives today for concern for shortness of breath. Patient with morbid obesity, ec2 baseline oxygen requirement, which not appropriately wearing her oxygen, noted to be hypoxic in the 80s. EMS was concerned as they noted end-tidal to be elevated in the 80s as well.. Historical: - Allergies: 11:32 Adhesives; ph 11:32 Cephalexin; ph 11:32 Codeine; ph 11:32 Keflex; ph 11:32 Tylenol; ph - PMHx: 11:32 Anemia; Asthma; CHF; COPD; Dementia; depressive disorder; diabetes mellitus; GERD; ph Hypertensive disorder; Obesity; - Immunization history:: Adult Immunizations unknown. - Infectious Disease History:: Denies. - Social history:: Smoking status: unknown. ROS: 11:22 Constitutional: as per hpi ec2 Exam: 11:22 Constitutional: GEN: NAD Head: atraumatic Eyes: EOMI Ears: External ears are ec2 normal. CV: regular rate LUNGS: no respiratory distress, no wheezes, no rales, rhonchi ABD: non-distended, morbid obesity noted SKIN: no evidence of rashes MSK: no evidence of trauma NEURO: moves all extremities equally Vital Signs: 11:21 Pulse Ox 89% on Non-rebreather mask; ph 11:41 BP 128 / 70; Pulse 93; Resp 19 S; Pulse Ox 95% on BiPAP; Weight 204.12 kg; kc6 12:15 BP 109 / 56; Pulse 91; Resp 20 S; Pulse Ox 98% on BiPAP; kc6 13:12 BP 112 / 72; Pulse 86; Resp 20 S; Pulse Ox 92% on BiPAP; ld1 13:48 BP 102 / 53; Pulse 91; Resp 19 S; Pulse Ox 91% on BiPAP; kc6 14:28 BP 151 / 85; Pulse 84; Resp 25 S; Pulse Ox 92% on ETT vent; kc6 14:50 BP 119 / 105; Pulse 73; Resp 20; Pulse Ox 97% on ETT vent; ph 14:50 Weight 235 kg; ph 15:14 BP 101 / 54; Pulse 71; Resp 16 S; Pulse Ox 97% on ETT vent; kc6 15:40 BP 107 / 51; Pulse 73; Resp 16 S; Pulse Ox 98% on ETT vent; kc6 Procedures: 14:23 Intubation: Ventilated with 100% NRB prior to procedure. Intubated orally using # 4 ec2 Niharika blade with 7.5 mm ETT. was successful on first attempt. Ventilated with Ambu bag. ventilator. Tube secured with ETT shea Placement verified by CO2 detector with (+) color change, auscultating bilateral breath sounds, O2 saturation after procedure was 96 %. Patient tolerated well. MDM: 11:22 Patient medically screened. ec2 11:22 Data reviewed: vital signs. ED course: Patient arrives today due to concern for hypoxia ec2 and elevated end-tidal. Patient with morbid obesity noted on physical examination, saturations in the mid to upper 80s, given the reported elevated end-tidal, placed patient on BiPAP, obtain ABG, obtain a cardiac workup and chest x-ray as well. Evaluate for process such as influenza, pneumonia, volume overload, additionally possible obesity hypoventilation syndrome causing the patient's end-tidal elevation . 11:40 ED course: Review shows respiratory acidosis with a pCO2 of 98 and a pH of 7.23. Will ec2 increase patient rate and reassess after given the patient on BiPAP.. 12:28 ED course: EKG independently reviewed and interpreted by me, shows normal sinus rhythm, ec2 rate 94, no acute ST segment elevations, nonconcerning intervals. . 12:50 ED course: Metabolic profile shows hyperglycemia, CBC with slight anemia, BNP minimally ec2 elevated, troponin within normal ranges, chest x-ray shows bilateral patchy opacities possible pneumonia versus volume. Flu and COVID testing negative. Will cover for possible pneumonia. However not convinced this is definitively infectious given lack of cough and cold symptoms. 14:21 ED course: Repeat ABG with worsening respiratory acidosis, initial pCO2 of 98, repeat ec2 at 105, repeat pH at 7.21 down from 7.23. I decided to urgently intubate the patient, patient expressed some hesitancy however after discussion regarding risks and benefits patient ultimately was agreeable due to possible deterioration in status. Will admit the patient for volume overload versus pneumonia requiring ventilation.. 15:34 ED course: Lactic acid minimally elevated at 2.2, will give patient 500 cc of ec2 crystalloid, will defer aggressive crystalloid management due to concern for possible volume overload and given patient's weight could potentially worsen her respiratory status, accordingly will defer 7 L fluid bolus. Postintubation chest x-ray independently reviewed and interpreted by me, shows ET tube in place with good placement. . 01/23 11:22 Order name: Basic Metabolic Panel; Complete Time: 12:50 ec2 01/23 11:22 Order name: CBC with Diff; Complete Time: 12:50 ec2 01/23 11:22 Order name: NT PRO-BNP; Complete Time: 12:50 ec2 01/23 11:22 Order name: Troponin HS; Complete Time: 12:50 ec2 01/23 11:22 Order name: ABG ec2 01/23 11:22 Order name: Influenza Screen (a \T\ B); Complete Time: 12:50 ec2 01/23 11:22 Order name: SARS RAPID; Complete Time: 12:50 ec2 01/23 12:50 Order name: ABG ec2 01/23 14:19 Order name: Blood Culture Adult (2) ec2 01/23 14:19 Order name: Lactate w/ 2H reflex if indic.; Complete Time: 15:33 ec2 01/23 14:19 Order name: Protime (+inr); Complete Time: 15:33 ec2 01/23 14:19 Order name: Ptt, Activated; Complete Time: 15:33 ec2 01/23 15:03 Order name: ABG Arterial Blood Gas EDMN 01/23 11:22 Order name: XRAY Chest (1 view); Complete Time: 12:50 ec2 01/23 11:22 Order name: BIPAP ec2 01/23 14:19 Order name: CXR XRAY; Complete Time: 15:33 ec2 01/23 11:22 Order name: EKG; Complete Time: 11:23 ec2 01/23 11:22 Order name: Cardiac monitoring; Complete Time: 11:24 ec2 01/23 11:22 Order name: EKG - Nurse/Tech; Complete Time: 11:40 ec2 01/23 11:22 Order name: IV Saline Lock; Complete Time: 11: ec2 01/23 11:22 Order name: Labs collected and sent; Complete Time: ec2 01/23 11:22 Order name: O2 Per Protocol; Complete Time: : ec2 01/23 11:22 Order name: O2 Sat Monitoring; Complete Time: : ec2 01/23 14:19 Order name: Accucheck; Complete Time: : ec2 01/23 14:19 Order name: IV Saline Lock - Large Bore; Complete Time: 14: ec2 01/23 14:19 Order name: Vital Signs; Complete Time: 14: ec2 Administered Medications: 11:42 Drug: DuoNeb Nebulize (3:1) (2.5 mg - 0.5 mg) 3 ml Nebulizer once Route: Nebulizer; kc6 11:59 Follow up: Response: No adverse reaction kc6 13:11 Drug: levofloxacin IVPB 750 mg 150 ml IVPB once over 90 mins Volume: 150 ml; Route: ph IVPB; Infused Over: 90 mins; Site: left forearm; 15:40 Follow up: Response: No adverse reaction; IV Status: Completed infusion; IV Intake: kc6 150ml 14:05 CANCELLED (Physician Discretion): [id number] mg IVP once ec2 14:12 Drug: Ketamine IVP 250 mg IVP once Route: IVP; Site: left forearm; kc6 15:40 Follow up: Response: No adverse reaction; RASS: Moderate sedation (-3) kc6 14:12 Drug: Succinylcholine IVP 400 mg IVP once Route: IVP; Site: left forearm; kc6 15:41 Follow up: Response: No adverse reaction; RASS: Moderate sedation (-3) kc6 14:31 Drug: Propofol IV 5 mcg/kg/min IV at calculated rate See Administration Instructions; kc6 Standard concentration 1000 mg / 100 mL; Recommended max rate 50 mcg/kg/min; Titrate 2 mcg/kg/min every 5 minutes to achieve goal (see titration policy); Goal parameter RASS score 0 to -2 Route: IV; Rate: calculated rate; Site: left forearm; 14:35 Drug: Ondansetron IVP 4 mg IVP once; over 2 minutes Route: IVP; Site: left forearm; ph 15:41 Follow up: Response: No adverse reaction kc6 15:35 Drug: NS 0.9% IV 500 ml IV at bolus once Route: IV; Rate: bolus; Site: left forearm; kc6 Disposition: 14:24 Critical Care:. ec2 Disposition Summary: 01/24/24 14:23 Hospitalization Ordered Notes: Hospitalization Status: Inpatient Admission ec2 Provider: Daniel Carvalho ec2 Location: Intensive Care Unit ec2 Condition: Stable ec2 Problem: an acute exacerbation ec2 Symptoms: have improved ec2 Bed/Room Type: Standard ec2 Room Assignment: 5-(01/24/24 15:17) em1 Diagnosis - Acute and chronic respiratory failure ec2 - Acute respiratory failure with hypercapnia ec2 Forms: - Medication Reconciliation Form ec2 - SBAR form ec2 - Leadership Thank You Letter ec2 Critical care time excluding procedures: 14:24 Critical care time: Bedside Care: 40 minutes, Consultation: 5 minutes. Total time: 45 ec2 minutes Signatures: Dispatcher [employer] EDRobert Kim em1 Connie Bustamante RN RN Naomi Catalan RN RN kc6 Lincoln Brown MD MD ec2 Corrections: (The following items were deleted from the chart) 11:23 11:23 BASIC METABOLIC PANEL+C.LAB.BRZ ordered. EDMN EDMS 11:23 11:23 CBC+H.LAB.BRZ ordered. EDMN EDMS 11:23 11:23 PROBNP+C.LAB.BRZ ordered. EDMN EDMS 11:23 11:23 Troponin High Sensitivity+C.LAB.BRZ ordered. EDMN EDMS 12:51 12:50 ED course: Metabolic profile shows hyperglycemia, CBC with slight anemia, BNP ec2 minimally elevated, troponin within normal ranges, chest x-ray shows bilateral patchy opacities possible pneumonia versus volume. Flu and COVID testing negative. Will give antibiotics for possible pneumonia. . ec2 14:05 14:04 Rocuronium IVP 250 mg IVP once ordered. ec2 ec2 14:20 14:20 BLOOD CULTURE*+BA.LAB.BRZ ordered. EDMN EDMS 14:20 14:20 LACTATE+C.LAB.BRZ ordered. EDMN EDMS 14:20 14:20 PROTIME (+INR)+COAG.LAB.BRZ ordered. EDMN EDMS 14: 14:20 PTT, ACTIVATED+COAG.LAB.BRZ ordered. EDMS EDMS 14: 14:20 Chest Single View+RAD.RAD.BRZ ordered. EDMS EDMS 15:17 14:23 ec2 em1
[2024-01-24] MEDS ORDERED: ONDANSETRON 4 MG/2 ML VIAL ONE (14:35)
--- NOTE | 2024-01-24 14:59 | RAD REPORT ---
EXAM DESCRIPTION: Eric Single View01/24/2024 2:38 pm CLINICAL HISTORY: Device placement endotracheal tube placement IMPRESSION: An endotracheal tube has been inserted with its tip at the level the aortic arch in good position. Nasogastric tube enters the stomach. The tip is not included in the field of view
[2024-01-24 15:19] LABS: PT Prothrombin Time 11.8 SECONDS (9.5-12.5); PTT, Activated Partial Thromb 30.3 SECONDS (24.3-36.9); Protime INR 1.07
--- NOTE | 2024-01-24 15:41 | P.HP ---
Certification for Inpatient Patient admitted to: Inpatient With expected LOS: >2 Midnights Patient will require the following post-hospital care: None Practitioner: I am a practitioner with admitting privileges, knowledge of patient current condition, hospital course, and medical plan of care. Services: Services provided to patient in accordance with Admission requirements found in Title 42 Section 412.3 of the Code of Federal Regulations Patient History Date of Service: 01/24/24 Reason for admission: Respiratory failure History of Present Illness: 48-year-old female with history of chronic hypercapnic/hypoxic respiratory failure, obesity hypoventilation syndrome, COPD, hypertension, GERD, depression, morbid obesity, insulin-dependent diabetes, chronic systolic congestive heart failure was brought to the emergency department for shortness of breath, hypoxia. She is a resident at [facility], she wears home oxygen at 3 L/min and has a CPAP that she is supposed to wear at the group home. I spoke with staff at group home who reports she is generally noncompliant, typically does not wear her CPAP for longer than 10 to 15 minutes at a time and has been more short of breath/more hypoxic the past 24 hours. She was evaluated in the emergency department and her labs were significant for hemoglobin of 9.9 hematocrit 31.2 bicarb 40 glucose 319 lactic acid 2.2 first ABG with a pH of 7.23, pCO2 98.3 patient was started on BiPAP and ABG was repeated about an hour later which showed pH of 7.21 and a pCO2 of 105. Given her worsening respiratory acidosis and lack of clinical improvement she was intubated in the emergency department and will need to be admitted to the ICU for acute on chronic hypercapnic/hypoxic respiratory failure. Her chest x-ray showed extensive bilateral pulmonary opacities present, greatest in the medial right lung base. This may represent pneumonia or pulmonary edema. Allergies adhesive tape Adverse Reaction (Intermediate, Verified 03/26/22 06:12) Nausea/Vomiting codeine Adverse Reaction (Intermediate, Verified 03/26/22 06:12) Nausea/Vomiting Home Medications: Aspirin [Aspirin EC 81 MG] 81 mg PO DAILY 03/26/22 Atorvastatin Calcium 40 mg PO BEDTIME 03/26/22 Benztropine Mesylate 1 mg PO Q12H 03/26/22 Docusate [Colace Cap*] 100 mg PO BID 03/26/22 Ergocalciferol (Vitamin D2) [Vitamin D2] 50,000 unit PO Q7D 03/26/22 Fexofenadine HCl [Jeri Allergy] 180 mg PO DAILY 03/26/22 Folic Acid 0.4 mg PO DAILY 03/26/22 Gabapentin 300 mg PO TID 03/26/22 Metformin HCl [Glucophage*] 500 mg PO BID 03/26/22 Calcium Carbonate [Tums Regular*] 750 mg PO BID 03/15/23 Sertraline [Zoloft*] 100 mg PO DAILY 03/15/23 Albuterol Neb [Proventil 0.083% Neb Soln] 2.5 mg NEB [id number] amp 03/18/23 Insulin -Regular Human [Novolin -R*] See Protocol SQ ACHS ml 03/18/23 Insulin Glargine,Hum.rec.anlog [Insulin Glargine] 44 units SQ BEDTIME 08/15/23 Lidocaine 4% Patch [Lidoderm 5% Patch*] 1 patch TD DAILY 08/15/23 Potassium Chloride [K-Tab ER] 20 meq PO DAILY 08/15/23 Arformoterol Tartrate [Brovana] 15 mcg NEB BIDRESP vial.neb 08/16/23 Spironolactone [Aldactone*] 25 mg PO BID tab 08/16/23 acetaZOLAMIDE [Diamox*] 250 mg PO BID #60 tab 08/16/23 Ammonium Lactate 1 appl TOP BID 08/19/23 Aripiprazole [Abilify] 1 tab PO DAILY 08/19/23 Furosemide [Lasix*] 40 mg PO DAILY tab 08/23/23 - Past Medical/Surgical History Diabetic: Yes -: COPD -: DMII -: morbid obesity -: Asthma -: CHF -: Chronic pain -: laporoscopic tubal ligation Psychosocial/ Personal History: Patient is resident of group home - Family History Father -: Heart disease, Diabetes Mother -: Heart disease, Diabetes - Social History Alcohol use: No CD- Drugs: No Caffeine use: Yes Place of Residence: Retirement Review of Systems is unable to be obtained Physical Examination - Vital Signs Pulse: 76 Pulse Ox (%): 93 - Physical Exam General: Unresponsive (Sedated, on ventilator), Obese HEENT: Atraumatic Neck: Supple Respiratory: Diminished Cardiovascular: Regular rate/rhythm, Normal S1 S2 Capillary refill: <2 Seconds Gastrointestinal: Normal bowel sounds, Non-distended Musculoskeletal: No contractures Integumentary: No cyanosis Neurological: Other (Sedated, on ventilator) - Studies Laboratory Data (last 24 hrs) 01/24/24 01/24/24 01/24/24 14:40 11:33 11:33 WBC 8.30 Hgb 9.9 L Hct 31.2 L Plt Count 328 PT 11.8 INR 1.07 APTT 30.3 Sodium 136 Potassium 3.9 BUN 11 Creatinine 0.64 Glucose 319 H Microbiology Data (last 24 hrs): 01/24/24 11:33 Nasopharnyx Influenza Type A Antigen Screen - Final 01/24/24 11:33 Nasopharnyx Influenza Type B Antigen Screen - Final Assessment and Plan - Plan Assessment: Acute on chronic hypercapnic/hypoxic respiratory failure Respiratory acidosis Obesity hypoventilation syndrome Acute on chronic systolic congestive heart failure Bilateral pulmonary opacities-pneumonia versus pulmonary edema Lactic acidosis COPD on chronic home O2 Diabetes mellitus type 2insulin-dependent with hyperglycemia Morbid obesity Plan: Acute on chronic hypercapnic/hypoxic respiratory failure Respiratory acidosis Obesity hypoventilation syndrome Intubated in ED given worsening respiratory acidosis/hypercapnic respiratory failure despite BiPAP Continue ICU level of care Pulmonology/yard jockey consulted Continue with nebs, diuresis, empiric antibiotics Patient reportedly not very compliant with her CPAP at group home Acute on chronic systolic congestive heart failure Continue diuresis with IV Diamox Pulmonology consulted Previous echocardiograms with poor windows/difficult evaluate with body habitus Bilateral pulmonary opacities-pneumonia versus pulmonary edema Unable to obtain CT to further differentiate edema versus pneumonia given body habitus Continue empiric antibiotics/diuresis Lactic acidosis Likely secondary to hypoxia Not with sepsis/severe sepsis currently COPD on chronic home O2 Typically wears 3 L at home Supposed to wear CPAP at night but not usually compliant Pulmonology consulted Diabetes mellitus type 2insulin-dependent with hyperglycemia Every 6 hours Accu-Chek, sliding scale insulin Restart long-acting insulin once dose verified Morbid obesity Once alert/extubated will need to discuss lifestyle changes/weight loss options DVT PPX: Lovenox Code status: Full Discharge Plan: Retirement Plan to discharge in: Greater than 2 days - Advance Directives Does patient have a Living Will: No Does patient have a Durable POA for Healthcare: No - Code Status/Comfort Care Code Status Assessed: Yes (Full code) Critical Care: No Time Spent Managing Pts Care (In Minutes): 70
[2024-01-24] MEDS ORDERED: ENOXAPARIN 40 MG/0.4 ML SQ ONE (15:54)
[2024-01-24] MEDS ORDERED: METHYLPREDNISOLONE 40 MG INJ ONE (15:54)
[2024-01-24] MEDS ORDERED: D5 0.45 NS 1,000 ML IV ONE (15:55)
[2024-01-24] MEDS ORDERED: INSULIN REGULAR (HUMAN) 100 UNIT/ML ONE ×2 (16:06→20:46)
[2024-01-24] MEDS: ENOXAPARIN 40 MG/0.4 ML SQ SCH (16:07)
[2024-01-24] MEDS: D5 0.45 NS 1,000 ML IV SCH (16:07)
[2024-01-24] MEDS: INSULIN REGULAR (HUMAN) 100 UNIT/ML SQ SCH (16:07)
[2024-01-24] MEDS: METHYLPREDNISOLONE 40 MG INJ IV SCH (16:08)
[2024-01-24] MEDS ORDERED: LORazepam 2 MG/ML VIAL ONE ×2 (16:10→21:41)
[2024-01-24] MEDS ORDERED: NA CHLORIDE 0.9% 250 ML IV PRN (16:15)
[2024-01-24] MEDS ORDERED: HALOPERIDOL LACT 5 MG/ML INJ IV PRN (16:15)
[2024-01-24] MEDS ORDERED: DEXMEDETOMIDINE HCL 200 MCG in NA CHLORIDE 0.9% 98 ML IV SCH (16:17)
[2024-01-24] MEDS: propofoL 1,000 MG/100 ML VIAL IV SCH (16:24)
[2024-01-24] MEDS: FUROSEMIDE 40 MG/4 ML VIAL IV ONE (16:26)
[2024-01-24] MEDS: DEXMEDETOMIDINE HCL 1,000 MCG in NA CHLORIDE 0.9% 490 ML IV SCH (16:58)
[2024-01-24] MEDS: LORazepam 2 MG/ML VIAL IV PRN (17:04)
[2024-01-24 17:09] LABS: Arterial Blood Carboxyhemoglob 1.9 % (0-1.5); Blood Gas Oxyhemoglobin 96.1 % (94-97); Blood Gas THB 10.2 g/dl (12-18); Blood O2 Saturation 99.4 % (92-98.5)
[2024-01-24 17:26] LABS: Specific Gravity 1.006 (1.005-1.030); Sqamous Epithelial None Seen /HPF (None Seen); Urine Bacteria <20 /HPF (<20); Urine Bilirubin NEGATIVE (Negative); Urine Blood Negative (Negative); Urine Clarity Clear (Clear); Urine Color Colorless (Yellow); Urine Culture Reflex Order REFLEXED; Urine Glucose 1+ (Negative); Urine Ketones NEGATIVE (Negative); Urine Micro Reflex YN NO BILL MICROSCOPIC; Urine Nitrite NEGATIVE (Negative); Urine Protein NEGATIVE (Negative); Urine RBC <5 /HPF (None Seen); Urine Urobilinogen Normal (Normal); Urine WBC 20-50 /HPF (<5); Urine pH 7.5 (5.0-7.0)
[2024-01-24] MEDS ORDERED: ARFORMOTEROL TARTRATE 15 MCG/2 ML VIAL.NEB ONE (18:02)
[2024-01-24] MEDS: ARFORMOTEROL TARTRATE 15 MCG/2 ML VIAL.NEB NEB SCH (18:20)
[2024-01-24] MEDS ORDERED: propofoL 1,000 MG/100 ML VIAL IV SCH (18:31)
[2024-01-24 18:48] LABS: Arterial Blood Carboxyhemoglob 2.1 % (0-1.5); Blood Gas Oxyhemoglobin 86.8 % (94-97); Blood Gas THB 10.7 g/dl (12-18); Blood O2 Saturation 89.9 % (92-98.5)
[2024-01-24] MEDS ORDERED: WATER FOR INJ,STERILE 10 ML ONE (20:52)
[2024-01-24] MEDS: FAMOTIDINE 20 MG/2 ML VIAL IV SCH (20:53)
[2024-01-24] MEDS: ACETAZOLAMIDE 500 MG IV IV SCH (20:54)
[2024-01-25 05:13] LABS: Absolute Lymphocytes (CBC) 1.4 K/uL (0.7-4.9); Absolute Monocytes 0.6 K/uL (0.1-1.3); Absolute Neutrophil 6.9 K/uL (1.8-8.0); Basophils % 0.2 % (0-1.3); Eosinophils % 0.3 % (0-4.4); Hematocrit 34.5 % (36.0-45.0); Lymphocytes % 15.2 % (15.3-44.8); MCH 31.5 pg (27.0-35.0); MCHC 31.9 g/dL (32.0-36.0); MCV 98.9 fL (80-100); MPV 8.5 fL (7.6-11.3); Monocytes % 7.2 % (3.3-12.3); Neutrophils % 77.1 % (41.7-73.7); Nucleated Red Blood Cells % 0.3 % (0-0); Platelets 321 thou/uL (152-406); RBC Red Blood Cell Count 3.49 M/uL (3.86-4.86); Red Cell Distribution Width 17.6 % (12.1-15.2)
[2024-01-25] MEDS ORDERED: MIDAZOLAM HCL 0 ML ONE (05:30)
[2024-01-25] MEDS ORDERED: LORazepam 2 MG/ML VIAL ONE ×4 (05:33→15:29)
[2024-01-25 05:38] LABS: Albumin 2.4 g/dL (3.4-5.0); Albumin/Globulin Ratio 0.6 (1.1-1.8); Anion Gap 8.9 mEq/L (5.0-15.0); Bilirubin Total 0.5 mg/dL (0.2-1.0); Globulin 3.8 g/dL (2.3-3.5); Magnesium 1.8 mg/dL (1.6-2.4); Potassium 3.9 mEq/L (3.5-5.1); Protein, Total 6.2 g/dL (6.4-8.2)
[2024-01-25] MEDS ORDERED: INSULIN GLARGINE 100 UNIT/ML SQ ONE ×2 (06:25→20:22)
[2024-01-25] MEDS: INSULIN GLARGINE 100 UNIT/ML SQ ONE (06:26)
--- NOTE | 2024-01-25 06:37 | P.PN ---
Date of Service: 01/25/24 Subjective: no issues overnight ~700ml output from liu on estimator project manager down to 45% fio2 this morning remains intubated/sedated ROS: unable to be obtained - intubated/sedated Physical Exam: GEN: sedated on vent, morbidly obese HEENT: Normal conjunctiva, sclera anicteric CV: Regular rate and rhythm, 1+ bilateral lower extremity edema Pulm: on compressor mechanic bus ventilation, 45%FIo2, diminished at bases b/l, coarse crackles ABD: Soft, nontender, nondistended Neuro: intubated/sedated Liu in place NGT in place vitals reviewed Problem List: Acute on chronic hypercapnic/hypoxic respiratory failure secondary to COPD, obesity hypoventilation syndrome Respiratory acidosis Obesity hypoventilation syndrome Bilateral pulmonary opacities; pneumonia vs pulm edema acute on chronic COPD (~3L home O2) Acute on chronic diastolic CHF IDDM2 with hyperglycemia Morbid obesity Acute on chronic hypercapnic/hypoxic respiratory failure secondary to COPD, obesity hypoventilation syndrome Respiratory acidosis Obesity hypoventilation syndrome Bilateral pulmonary opacities; pneumonia vs pulm edema COPD, chronic (~3L home O2) Reports worsening dyspnea, hypoxia at shelter. Nursing staff at shelter reports Pt generally noncompliant with CPAP. Typically wears 3L o2 CXR (01/23): extensive bilateral pulmonary opacities R > L. pneumonia vs pulm edema. CXR (01/24): similar widespread bilateral interstitial/airspace disease. pneumonia vs pulm edema Unable to obtain CT to further differentiate edema vs pneumonia given body habitus Intubated in ED given worsening respiratory acidosis/hypercapnic respiratory failure despite BiPAP remains sedated on precedex; PRN haldol / ativan while intubated Continue ICU level of care Dr. Mcintyre, Pulmonology/power plant operator consulted Continue duonebs, IV diamox continue empiric levaquin (01/24-) lactic acidosis likely secondary to hypoxia follow urine / blood cultures vent wean trial this morning -> patient desaturated quickly Acute on chronic diastolic CHF Continue diuresis with IV Diamox received iv lasix x1 last night with good response, will discuss with Dr. Mcintyre about additional dose today past echo from 08/21/23 with 77%EF but poor windows/difficult evaluate with body habitus f/u echo IDDM2 with hyperglycemia Accu-Checks q6h, SSI hyperglycemia worsened by steroids patient is on insulin at shelter will start semglee and titrate up as needed Morbid obesity Once alert/extubated will need to discuss lifestyle changes/weight loss options VTE: Lovenox Code: Full Dispo: back to [facility], 2+ days
[2024-01-25] MEDS ORDERED: ARFORMOTEROL TARTRATE 15 MCG/2 ML VIAL.NEB ONE (07:27)
[2024-01-25] MEDS ORDERED: INSULIN REGULAR (HUMAN) 100 UNIT/ML ONE ×4 (07:57→23:26)
[2024-01-25] MEDS ORDERED: FAMOTIDINE 20 MG/2 ML VIAL IV ONE (07:58)
[2024-01-25] MEDS ORDERED: ENOXAPARIN 40 MG/0.4 ML SQ ONE (07:58)
[2024-01-25] MEDS ORDERED: Levofloxacin 750mg IV 750 MG/150 ML BAG IV ONE (07:59)
--- NOTE | 2024-01-25 08:02 | RAD REPORT ---
EXAM DESCRIPTION: RAD - Chest Single View - 01/25/2024 7:39 am CLINICAL HISTORY: CHECK ETT PLCMNT, F/U OPACITIES COMPARISON: Chest Single View dated 01/24/2024; Chest Single View dated 01/24/2024; Chest Single View dated 08/22/2023; Chest Single View dated 08/21/2023 FINDINGS: Lines: Endotracheal tube at the aortic arch in satisfactory position. Enteric tube below t he diaphragm. Lungs: Widespread bilateral interstitial airspace disease. More focal consolidation present in the ronna ng bases. Pleural: Left pleural effusion difficult to exclude. Cardiac: The heart size is within normal limits. Mediastinum: Within normal limits. Bones: No acute fractures. Other: None IMPRESSION: 1. Similar widespread bilateral interstitial and airspace disease that may reflect edema , aspiration, and/or pneumonia. 2. Support apparatus in satisfactory position.
[2024-01-25] MEDS: Levofloxacin 750mg IV 750 MG/150 ML BAG IV SCH (08:05)
[2024-01-25] MEDS ORDERED: FUROSEMIDE 40 MG/4 ML VIAL ONE (08:44)
[2024-01-25] MEDS: FUROSEMIDE 40 MG/4 ML VIAL IV SCH (08:46)
[2024-01-25] MEDS ORDERED: MIDAZOLAM HCL 2 MG/2 ML INJ ONE ×3 (09:43→13:45)
[2024-01-25] MEDS: MIDAZOLAM HCL 2 MG/2 ML INJ IV PRN (09:44)
[2024-01-25 10:35] LABS: Arterial Blood Carboxyhemoglob 1.8 % (0-1.5); Blood Gas Oxyhemoglobin 88.8 % (94-97); Blood Gas THB 13.2 g/dl (12-18); Blood O2 Saturation 91.5 % (92-98.5)
--- NOTE | 2024-01-25 11:58 | P.PN ---
Subjective Date of Service: 01/25/24 Chief Complaint: Respiratory failure No change in patient's condition failed spontaneous breathing trial hemodynamically stable unresponsive Review of Systems is unable to be obtained Physical Examination - Vital Signs Temperature: 97.7 F Blood Pressure: 130/62 Pulse: 94 Respirations: 15 Pulse Ox (%): 92 - Physical Exam General: Unresponsive Respiratory: Clear to auscultation bilaterally, Diminished Cardiovascular: Regular rate/rhythm, Normal S1 S2, Edema - Studies Laboratory Data (last 24 hrs) 01/24/24 01/24/24 01/24/24 14:40 11:33 11:33 WBC 8.30 Hgb 9.9 L Hct 31.2 L Plt Count 328 PT 11.8 INR 1.07 APTT 30.3 Sodium 136 Potassium 3.9 BUN 11 Creatinine 0.64 Glucose 319 H Microbiology Data (last 24 hrs): 01/24/24 11:33 Nasopharnyx Influenza Type A Antigen Screen - Final 01/24/24 11:33 Nasopharnyx Influenza Type B Antigen Screen - Final Assessment And Plan - Current Problems (Diagnosis) (1) Respiratory failure with hypoxia and hypercapnia Current Visit: No Status: Acute Plan: Patient is 48 years of age admitted with hypoxic hypercapnic respiratory failure currently on pressure control ventilation failed spontaneous breathing trial labs chest x-rays reviewed possible underlying heart failure dilated pulmonary arteries on chest x-ray will await for an echocardiogram continue with Lasix labs arterial blood gases reviewed count is normal cultures are so far negative sputum cultures are pending Qualifiers: Chronicity: acute on chronic Qualified Code(s): J96.21 - Acute and chronic respiratory failure with hypoxia; J96.22 - Acute and chronic respiratory failure with hypercapnia
--- NOTE | 2024-01-25 12:00 | P.CNS ---
Date of Consult: 01/24/24 Reason for Consult: Respiratory failure Chief Complaint: Respiratory failure History of Present Illness: Patient is 48 years okay of age recurrent hospital admissions admitted with unresponsiveness hypoxic hypercapnic respiratory failure and was intubated in the emergency room I saw her in the ICU patient was on mechanical ventilation and then on propofol drip Allergies adhesive tape Adverse Reaction (Intermediate, Verified 03/26/22 06:12) Nausea/Vomiting codeine Adverse Reaction (Intermediate, Verified 03/26/22 06:12) Nausea/Vomiting Home Medications: Aspirin [Aspirin EC 81 MG] 81 mg PO DAILY 03/26/22 Atorvastatin Calcium 40 mg PO BEDTIME 03/26/22 Benztropine Mesylate 1 mg PO Q12H 03/26/22 Docusate [Colace Cap*] 100 mg PO BID 03/26/22 Ergocalciferol (Vitamin D2) [Vitamin D2] 50,000 unit PO Q7D 03/26/22 Fexofenadine HCl [Jeri Allergy] 180 mg PO DAILY 03/26/22 Folic Acid 0.4 mg PO DAILY 03/26/22 Gabapentin 300 mg PO TID 03/26/22 Metformin HCl [Glucophage*] 500 mg PO BID 03/26/22 Calcium Carbonate [Tums Regular*] 500 mg PO BID 03/15/23 Sertraline [Zoloft*] 100 mg PO DAILY 03/15/23 Albuterol Neb [Proventil 0.083% Neb Soln] 2.5 mg NEB [id number] amp 03/18/23 Insulin -Regular Human [Novolin -R*] See Protocol SQ ACHS ml 03/18/23 Insulin Glargine,Hum.rec.anlog [Insulin Glargine] 52 units SQ BEDTIME 08/15/23 Potassium Chloride [K-Tab ER] 20 meq PO DAILY 08/15/23 Arformoterol Tartrate [Brovana] 15 mcg NEB BIDRESP vial.neb 08/16/23 Spironolactone [Aldactone*] 25 mg PO BID tab 08/16/23 acetaZOLAMIDE [Diamox*] 250 mg PO BID #60 tab 08/16/23 Ammonium Lactate 1 appl TOP BID 08/19/23 Furosemide [Lasix*] 80 mg PO DAILY 01/24/24 Nitroglycerin 0.4 mg SL Q5M PRN MDD 3 01/24/24 Ondansetron [Zofran] 4 mg PO Q8H PRN 01/24/24 - Past Medical/Surgical History Diabetic: Yes -: COPD -: DMII -: morbid obesity -: Asthma -: CHF -: Chronic pain -: laporoscopic tubal ligation Psychosocial/ Personal History: [facility] is [facility] - Family History Father Medical History: Heart disease, Diabetes Mother Medical History: Heart disease, Diabetes - Social History Smoking Status: Unknown if ever smoked Alcohol use: No CD- Drugs: No Caffeine use: Yes Place of Residence: [facility] Review of Systems is unable to be obtained Physical Examination Temp Pulse Resp BP Pulse Ox 97.7 F 94 H 15 130/62 92 01/25/24 11:58 01/25/24 11:58 01/25/24 11:58 01/25/24 11:58 01/25/24 11:58 General: Unresponsive Respiratory: Clear to auscultation bilaterally, Diminished Cardiovascular: Normal S1 S2, Edema Gastrointestinal: Soft and benign, Non-distended Laboratory Data (last 24 hrs) 01/24/24 01/24/24 01/24/24 14:40 11:33 11:33 WBC 8.30 Hgb 9.9 L Hct 31.2 L Plt Count 328 PT 11.8 INR 1.07 APTT 30.3 Sodium 136 Potassium 3.9 BUN 11 Creatinine 0.64 Glucose 319 H - Problems (1) Respiratory failure with hypoxia and hypercapnia Current Visit: No Status: Acute Plan: Patient is 48 years of age history of obesity hypoventilation syndrome mated with respiratory failure significant hypercapnia and apparently was compliant with her medication changed the ventilator to pressure control peak pressures elevated on a ventilator continue with bronchodilators DC steroids chest x-ray shows dilated pulmonary arteries DC IV fluids 2D echocardiogram patient's BNP is low Qualifiers: Chronicity: acute on chronic Qualified Code(s): J96.21 - Acute and chronic respiratory failure with hypoxia; J96.22 - Acute and chronic respiratory failure with hypercapnia
[2024-01-25] MEDS ORDERED: FENTANYL CITR 100 MCG/2 ML ONE (15:43)
[2024-01-25] MEDS: FENTANYL CITR 100 MCG/2 ML IV PRN (15:46)
--- NOTE | 2024-01-25 17:49 | EKG ---
Test Date: 2024-01-24 Test Time: 11:28:51 Pediatric Np: AMRIT MEASUREMENT RESULTS: Intervals: Rate: 94 CA: 182 QRSD: 94 QT: 368 QTc: 460 Norton: P: 53 CA: 182 QRS: 91 T: 36 INTERPRETIVE STATEMENTS: Normal sinus rhythm Rightward axis Borderline ECG Compared to ECG 08/18/2023 21:29:09 Right-axis deviation now present ST (T wave) deviation no longer present Prolonged QT interval no longer present Electronically Signed On 01-25-24 17:46:39 CDT by Marlon Cervantes
[2024-01-25] MEDS ORDERED: D50W 25 GM/50 ML SYRINGE IV PRN (19:24)
[2024-01-25] MEDS ORDERED: WATER FOR INJ,STERILE 10 ML ONE (20:05)
[2024-01-25] MEDS: INSULIN GLARGINE 100 UNIT/ML SQ SCH (20:24)
[2024-01-25] MEDS: INSULIN REGULAR (HUMAN) 100 UNIT/ML SQ SCH (23:28)
[2024-01-26] MEDS ORDERED: FENTANYL CITR 100 MCG/2 ML ONE ×2 (00:13→18:32)
[2024-01-26 05:15] LABS: Absolute Basophils 0.2 K/uL (0-0.5); Absolute Eosinophils 0.1 K/uL (0-0.5); Absolute Lymphocytes (CBC) 1.8 K/uL (0.7-4.9); Absolute Monocytes 0.9 K/uL (0.1-1.3); Absolute Neutrophil 7.6 K/uL (1.8-8.0); Basophils % 1.5 % (0-1.3); Hematocrit 32.2 % (36.0-45.0); Hemoglobin 10.5 g/dL (12.0-15.0); Lymphocytes % 16.8 % (15.3-44.8); MCH 31.9 pg (27.0-35.0); MCHC 32.8 g/dL (32.0-36.0); MCV 97.4 fL (80-100); MPV 8.1 fL (7.6-11.3); Monocytes % 8.3 % (3.3-12.3); Neutrophils % 72.4 % (41.7-73.7); Nucleated Red Blood Cells % 0.1 % (0-0); Platelets 352 thou/uL (152-406); RBC Red Blood Cell Count 3.31 M/uL (3.86-4.86)
[2024-01-26 05:32] LABS: Albumin 2.2 g/dL (3.4-5.0); Albumin/Globulin Ratio 0.6 (1.1-1.8); Anion Gap 5.2 mEq/L (5.0-15.0); Bilirubin Total 0.5 mg/dL (0.2-1.0); Globulin 3.9 g/dL (2.3-3.5); Magnesium 1.9 mg/dL (1.6-2.4); Potassium 3.2 mEq/L (3.5-5.1); Protein, Total 6.1 g/dL (6.4-8.2)
[2024-01-26] MEDS: KCL 20 MEQ/100 mL IVPB 20 MEQ/100 ML BAG IV SCH (06:32)
--- NOTE | 2024-01-26 07:31 | P.PN ---
Date of Service: 01/26/24 Subjective: reportedly desat overnight. had to be increased to 70% fio2. Now back down to 50% fio2 this morning remains intubated/sedated ROS: unable to be obtained - intubated/sedated Physical Exam: GEN: sedated on vent, morbidly obese HEENT: Normal conjunctiva, sclera anicteric CV: Regular rate and rhythm, 1+ bilateral lower extremity edema Pulm: on mechanical maintenance supervisor ventilation, 50%FIo2, diminished at bases b/l, coarse crackles ABD: Soft, nontender, nondistended Neuro: intubated/sedated Goldman in place NGT in place vitals reviewed Problem List: Acute on chronic hypercapnic/hypoxic respiratory failure secondary to COPD / obe sity hypoventilation syndrome Respiratory acidosis Obesity hypoventilation syndrome Bilateral pulmonary opacities; pneumonia vs pulm edema acute on chronic COPD (~3L home O2) Acute on chronic diastolic CHF IDDM2 with hyperglycemia Morbid obesity Acute on chronic hypercapnic/hypoxic respiratory failure secondary to COPD / obesity hypoventilation syndrome Respiratory acidosis Obesity hypoventilation syndrome Bilateral pulmonary opacities; pneumonia vs pulm edema acute on chronic COPD (~3L home O2) [facility] worsening dyspnea[facility] reports Pt generally noncompliant with CPAP. Typically wears 3L o2 CXR (01/23): extensive bilateral pulmonary opacities R > L. pneumonia vs pulm edema. CXR (01/24): similar widespread bilateral interstitial/airspace disease. pneumonia vs pulm edema Unable to obtain CT to further differentiate edema vs pneumonia given body habitus Intubated in ED given worsening respiratory acidosis/hypercapnic respiratory failure despite BiPAP remains sedated on precedex; PRN haldol / ativan while intubated Continue ICU level of care Dr. Mcintyre, Pulmonology/allergist/immunologist physician consulted Continue duonebs, IV diamox continue empiric levaquin (01/24-) lactic acidosis likely secondary to hypoxia Blood cx (01/23): NGTD; sputum cx (01/24): 3+ staph edger liner failed vent wean trial yesterday am -> patient desaturated quickly repeat CXR (01/25) without much change, likely pulm edema Acute on chronic diastolic CHF Continue diuresis with IV Diamox responded well to lasix; discussed with pulm, continue IV lasix 40 mg daily past echo from 08/21/23 with 77%EF but poor windows/difficult evaluate with body habitus f/u echo gram negative bacteriuria urinalysis in ED with 75 LE, 20-50 WBC urine cx (01/23): prelim 2+ GNR; 10-100k cfu/ml patient intubated/sedated. unsure if symptomatic on empiric levaquin (01/24-) IDDM2 with hyperglycemia Accu-Checks q6h, SSI hyperglycemia worsened by steroids patient is on insulin at jail continue semglee and titrate up as needed Morbid obesity Once alert/extubated will need to discuss lifestyle changes/weight loss options VTE: Lovenox Code: Full Dispo: back to [facility], 4+ days weaning trials over weekend
--- NOTE | 2024-01-26 07:32 | RAD REPORT ---
EXAM DESCRIPTION: RAD - Chest Single View - 01/26/2024 6:34 am CLINICAL HISTORY: on vent, f/u opacities/pulm edema COMPARISON: Chest Single View dated 01/25/2024; Chest Single View dated 01/24/2024; Chest Single View dated 01/24/2024; Chest Single View dated 08/22/2023 FINDINGS: Lines: Endotracheal tube at the aortic arch . Lungs: Widespread bilateral interstitial and airspace disease with slightly decreased lung volumes co mpared with yesterday. Pleural: Pleural effusions not excluded. Cardiac: Cardiomegaly. Mediastinum: Within normal limits. Bones: No acute fractures. Other: Enteric tube in the stomach. IMPRESSION: 1. Unchanged aeration of the lungs with widespread bilateral airspace disease likely ref lecting pulmonary edema. 2. Stable support apparatus.
[2024-01-26] MEDS ORDERED: ARFORMOTEROL TARTRATE 15 MCG/2 ML VIAL.NEB ONE ×2 (07:48→22:00)
[2024-01-26] MEDS ORDERED: FUROSEMIDE 40 MG/4 ML VIAL ONE (09:23)
--- NOTE | 2024-01-26 13:19 | P.PN ---
Subjective Date of Service: 01/26/24 Chief Complaint: Respiratory failure Unable to wean the patient off the ventilator is no change Review of Systems is unable to be obtained Physical Examination - Vital Signs Temperature: 99.0 F Blood Pressure: 116/68 Pulse: 71 Respirations: 23 Pulse Ox (%): 96 - Physical Exam General: Unresponsive Respiratory: Clear to auscultation bilaterally, Diminished Cardiovascular: No edema, Regular rate/rhythm Assessment And Plan - Current Problems (Diagnosis) (1) Respiratory failure with hypoxia and hypercapnia Current Visit: No Status: Acute Plan: Patient admitted with respiratory failure unable to wean the patient off the ventilator labs chemistries all reviewed will try to use pressure support ventilation to wean the patient chest x-ray reviewed endotracheal tube in satisfactory position to evaluate due to underlying obesity sputum culture shows Staph aureus and is on levofloxacin Qualifiers: Chronicity: acute on chronic Qualified Code(s): J96.21 - Acute and chronic respiratory failure with hypoxia; J96.22 - Acute and chronic respiratory failure with hypercapnia
[2024-01-26] MEDS ORDERED: INSULIN REGULAR (HUMAN) 100 UNIT/ML ONE ×2 (13:21→18:58)
[2024-01-26] MEDS ORDERED: D10W 250 ML BAG IV PRN (13:52)
[2024-01-26] MEDS ORDERED: LORazepam 2 MG/ML VIAL ONE ×2 (18:33→22:12)
--- NOTE | 2024-01-26 19:34 | RAD REPORT ---
EXAM DESCRIPTION: [facility]26[facility]24 6:11 pm CLINICAL HISTORY: PICC Line Verification COMPARISON: Chest Single View dated 01/26/2024; Chest Single View dated 01/25/2024; Chest Single View dated 01/24/2024; Chest Single View dated 01/24/2024 TECHNIQUE: Portable AP view of the chest. FINDINGS: Right arm, with catheter at the superior cavoatrial junction. The lungs again show central interstitial prominence and fluffy opacities with bibasilar and central predominance. Endotracheal t ube again terminates 1 cm above the martha. Possible left pleural effusion. No pneumothorax. The car diomediastinal contours are unchanged. IMPRESSION: Satisfactory positioning of right arm PICC. Stable pulmonary findings, likely related to pulmonary edema.
[2024-01-26] MEDS ORDERED: WATER FOR INJ,STERILE 10 ML ONE (20:13)
[2024-01-26] MEDS: Mupirocin NASAL 2 APPL/1 GM TUBE NAS SCH (20:14)
[2024-01-26] MEDS ORDERED: INSULIN GLARGINE 100 UNIT/ML SQ ONE (21:15)
[2024-01-27] MEDS ORDERED: INSULIN REGULAR (HUMAN) 100 UNIT/ML ONE ×4 (00:32→23:41)
[2024-01-27] MEDS ORDERED: FENTANYL CITR 100 MCG/2 ML ONE ×3 (04:51→22:18)
[2024-01-27 05:00] LABS: Absolute Basophils 0.1 K/uL (0-0.5); Absolute Eosinophils 0.1 K/uL (0-0.5); Absolute Monocytes 0.7 K/uL (0.1-1.3); Absolute Neutrophil 9.8 K/uL (1.8-8.0); Basophils % 0.7 % (0-1.3); Eosinophils % 1.3 % (0-4.4); Hematocrit 31.2 % (36.0-45.0); Lymphocytes % 8.9 % (15.3-44.8); MCH 31.2 pg (27.0-35.0); MCHC 32.1 g/dL (32.0-36.0); MCV 97.3 fL (80-100); Monocytes % 6.3 % (3.3-12.3); Neutrophils % 82.8 % (41.7-73.7); Platelets 325 thou/uL (152-406)
[2024-01-27 05:29] LABS: Albumin/Globulin Ratio 0.5 (1.1-1.8); Anion Gap 6.2 mEq/L (5.0-15.0); Bilirubin Total 0.6 mg/dL (0.2-1.0); Magnesium 1.8 mg/dL (1.6-2.4); Potassium 3.2 mEq/L (3.5-5.1)
[2024-01-27] MEDS: MAGNESIUM SULFATE 1 gm IVPB 1 GM/100 ML BAG IV ONE (05:56)
[2024-01-27] MEDS: KCL 20 MEQ/100 mL IVPB 20 MEQ/100 ML BAG IV SCH (05:56)
--- NOTE | 2024-01-27 07:40 | P.PN ---
Date of Service: 01/27/24 Subjective: desat to the low 80s overnight with turning for cleaning no BM had to increase fio2 to 100% remains sedated/on vent afebrile ROS: unable to be obtained - intubated/sedated Physical Exam: GEN: sedated on vent, morbidly obese HEENT: Normal conjunctiva, sclera anicteric CV: Regular rate and rhythm, 1+ bilateral lower extremity edema Pulm: on siding mechanic ventilation, 100%FIo2, diminished at bases b/l, coarse crackles ABD: Soft, nontender, nondistended Neuro: intubated/sedated Goldman in place OGT in place vitals reviewed Problem List: Acute on chronic hypercapnic/hypoxic respiratory failure secondary to Pneumonia / acute COPD exacerbation / obesity hypoventilation syndrome acute on chronic COPD (~3L home O2) UTI, E. coli Esbl Acute on chronic diastolic CHF IDDM2 with hyperglycemia Morbid obesity constipation Acute on chronic hypercapnic/hypoxic respiratory failure secondary to Pneumonia / acute COPD exacerbation / obesity hypoventilation syndrome acute on chronic COPD (~3L home O2) Reported worsening dyspnea, hypoxia at senior living. senior living reports Pt generally noncompliant with CPAP. Typically wears 3L o2 Intubated in ED given worsening respiratory acidosis/hypercapnic respiratory failure despite BiPAP CXR (01/23): extensive bilateral pulmonary opacities R > L. pneumonia vs pulm edema. Unable to obtain CT to further differentiate edema vs pneumonia given body habitus remains sedated on precedex; PRN haldol / ativan while intubated Continue ICU level of care Dr. Mcintyre, Pulmonology/solar energy systems designer consulted Continue duonebs, IV diamox lactic acidosis secondary to hypoxia Blood cx (01/23): NGTD sputum cx (01/24): MRSA only sensitive to vanc urine cx: ESBL switch levaquin (01/24-01/25) to vanc / merrem given culture sensitivities (01/26) afebrile, +leukocytosis 10.5 -> 11.8 (01/26) failed vent wean trial 01/24 -> patient desaturated quickly continue weaning vent trials throughout the weekend repeat CXR (01/26) with partial resolution in left lung opacities. No change to right lung opacities KUB with large amount of stool start nutrition, Dr. Mcintyre recommends tube feeds UTI, E. coli Esbl urinalysis in ED with 75 LE, 20-50 WBC urine cx (01/23): E. coli Esbl patient intubated/sedated. unsure if symptomatic switched antibiotics to merrem / vanc (01/26) given culture sensitivities Acute on chronic diastolic CHF responded well to lasix Continue diuresis with IV Diamox / IV lasix past echo from 08/21/23 with 77%EF but poor windows/difficult evaluate with body habitus f/u echo IDDM2 with hyperglycemia Accu-Checks q6h, SSI hyperglycemia worsened by steroids patient is on insulin at senior living continue semglee and titrate up as needed Morbid obesity Once alert/extubated will need to discuss lifestyle changes/weight loss options VTE: Lovenox Code: Full Dispo: back to [facility], 4+ days wean vent as tolerated, antibiotics
[2024-01-27] MEDS ORDERED: FUROSEMIDE 40 MG/4 ML VIAL ONE (07:54)
[2024-01-27] MEDS ORDERED: ARFORMOTEROL TARTRATE 15 MCG/2 ML VIAL.NEB ONE ×2 (08:07→20:04)
[2024-01-27] MEDS ORDERED: MIDAZOLAM HCL 2 MG/2 ML INJ ONE ×2 (08:10→17:03)
[2024-01-27] MEDS ORDERED: NA CHLORIDE 0.9% 100 ML ONE ×2 (08:37→17:00)
[2024-01-27] MEDS ORDERED: Meropenem 1000 MG/VIAL IV ONE ×2 (08:37→17:00)
[2024-01-27] MEDS: Meropenem 1,000 MG in NA CHLORIDE 0.9% 100 ML IV SCH (08:38)
[2024-01-27] MEDS: VANCOMYCIN 2 GM in NA CHLORIDE 0.9% 500 ML IVPB ONE (08:43)
--- NOTE | 2024-01-27 09:13 | RAD REPORT ---
EXAM DESCRIPTION: RAD - Abdomen 1 View (KUB) - 01/27/2024 8:39 am CLINICAL HISTORY: Constipation FINDINGS: The bowel gas pattern is unremarkable. Large amount stool is present throughout the colon No significant abnormal calcification is displayed Nasogastric tube within the stomach
--- NOTE | 2024-01-27 09:15 | RAD REPORT ---
[facility] 8[facility]39 am CLINICAL HISTORY: Respiratory failure COMPARISON: January 26, 2024 FINDINGS: Partial resolution in left lung opacities. No significant change right lung opacities. Cardiomegaly. Endotracheal and nasogastric tubes in good position
--- NOTE | 2024-01-27 10:33 | P.PN ---
Subjective Date of Service: 01/27/24 Chief Complaint: Respiratory failure Patient's condition is worse she is requiring 100% FiO2 now multiple resistant organisms have been isolated in the sputum and urine continues to remain unresponsive Review of Systems is unable to be obtained Physical Examination - Vital Signs Temperature: 98.5 F Blood Pressure: 111/61 Pulse: 71 Respirations: 25 Pulse Ox (%): 95 - Physical Exam General: Unresponsive Respiratory: Clear to auscultation bilaterally, Diminished, Friction rub Cardiovascular: Regular rate/rhythm, Normal S1 S2 Gastrointestinal: Normal bowel sounds, Soft and benign Assessment And Plan - Current Problems (Diagnosis) (1) Respiratory failure with hypoxia and hypercapnia Current Visit: No Status: Acute Plan: Patient admitted with respiratory failure multiple resistant organisms have not been isolated chest x-ray reviewed endotracheal tube satisfactory labs reviewed increase PEEP to 10 titrate sat to 90% repeat arterial blood gases agree with tube feeds patient is currently on meropenem and vancomycin urine shows ESBL spu peña shows MRSA Qualifiers: Chronicity: acute on chronic Qualified Code(s): J96.21 - Acute and chronic respiratory failure with hypoxia; J96.22 - Acute and chronic respiratory failure with hypercapnia Discharge Plan: LTAC
[2024-01-27] MEDS ORDERED: GLUCERNA 1.5 CAL 1,000 ML BOT FT SCH (14:00)
[2024-01-27 17:22] LABS: Arterial Blood Carboxyhemoglob 1.5 % (0-1.5); Blood Gas Oxyhemoglobin 92.2 % (94-97)
[2024-01-27 17:23] LABS: Blood Gas THB 13.7 g/dl (12-18)
[2024-01-27] MEDS: VANCOMYCIN 2 GM in NA CHLORIDE 0.9% 500 ML IVPB SCH (20:13)
[2024-01-27] MEDS ORDERED: INSULIN GLARGINE 100 UNIT/ML SQ ONE (20:35)
[2024-01-27] MEDS: INSULIN GLARGINE 100 UNIT/ML SQ SCH (20:50)
[2024-01-27] MEDS ORDERED: MIDAZOLAM HCL 5 ML ONE (22:51)
[2024-01-28] MEDS ORDERED: Meropenem 1000 MG/VIAL IV ONE ×3 (00:11→17:00)
[2024-01-28] MEDS ORDERED: NA CHLORIDE 0.9% 100 ML ONE ×3 (00:11→17:01)
[2024-01-28] MEDS ORDERED: MIDAZOLAM HCL 2 MG/2 ML INJ ONE ×2 (03:30→12:55)
[2024-01-28 04:50] LABS: Absolute Basophils 0.1 K/uL (0-0.5); Absolute Eosinophils 0.3 K/uL (0-0.5); Absolute Lymphocytes (CBC) 1.4 K/uL (0.7-4.9); Absolute Monocytes 0.9 K/uL (0.1-1.3); Absolute Neutrophil 10.2 K/uL (1.8-8.0); Basophils % 0.9 % (0-1.3); Eosinophils % 2.1 % (0-4.4); Hematocrit 30.6 % (36.0-45.0); Hemoglobin 9.5 g/dL (12.0-15.0); Lymphocytes % 10.8 % (15.3-44.8); MCH 30.8 pg (27.0-35.0); MCHC 31.2 g/dL (32.0-36.0); MCV 98.6 fL (80-100); MPV 8.5 fL (7.6-11.3); Monocytes % 7.1 % (3.3-12.3); Neutrophils % 79.1 % (41.7-73.7); Nucleated Red Blood Cells % 0.1 % (0-0); Platelets 290 thou/uL (152-406); Red Cell Distribution Width 17.4 % (12.1-15.2)
[2024-01-28] MEDS ORDERED: FENTANYL CITR 100 MCG/2 ML ONE ×2 (05:01→11:11)
[2024-01-28 05:07] LABS: Albumin/Globulin Ratio 0.5 (1.1-1.8); Anion Gap 6.5 mEq/L (5.0-15.0); Bilirubin Total 0.5 mg/dL (0.2-1.0); Globulin 4.3 g/dL (2.3-3.5); Magnesium 2.2 mg/dL (1.6-2.4); Phosphorus 2.8 mg/dL (2.5-4.9); Potassium 3.5 mEq/L (3.5-5.1); Protein, Total 6.3 g/dL (6.4-8.2)
[2024-01-28] MEDS ORDERED: INSULIN REGULAR (HUMAN) 100 UNIT/ML ONE ×3 (05:48→17:00)
[2024-01-28] MEDS ORDERED: KCL 20 MEQ/100 mL IVPB 100 ML IV ONE (05:49)
[2024-01-28] MEDS: KCL 20 MEQ/100 mL IVPB 20 MEQ/100 ML BAG IV SCH (05:56)
[2024-01-28] MEDS ORDERED: SODIUM CHLORIDE 0.9% 10ML INJ IV PRN (06:13)
--- NOTE | 2024-01-28 07:16 | P.PN ---
Date of Service: 01/28/24 Subjective: remains sedated/intubated. on 60% fio2 nursing staff report able to decrease precedex slightly tolerating tube feeds - started yesterday No BM yet afebrile ROS: unable to be obtained - intubated/sedated Physical Exam: GEN: sedated on vent, morbidly obese HEENT: Normal conjunctiva, sclera anicteric CV: Regular rate and rhythm, 1+ bilateral lower extremity edema Pulm: on assembly machine set up mechanic ventilation, 60%FIo2, diminished at bases b/l, coarse crackles ABD: Soft, nontender, nondistended Neuro: intubated/sedated Goldman in place OGT in place vitals reviewed Problem List: Acute on chronic hypercapnic/hypoxic respiratory failure secondary to Pneumonia / acute COPD exacerbation / obesity hypoventilation syndrome acute on chronic COPD (~3L home O2) UTI, E. coli Esbl Acute on chronic diastolic CHF IDDM2 with hyperglycemia Morbid obesity constipation Acute on chronic hypercapnic/hypoxic respiratory failure secondary to Pneumonia / acute COPD exacerbation / obesity hypoventilation syndrome acute on chronic COPD (~3L home O2) Reported worsening dysp[facility], [facility] reports Pt generally noncompliant with CPAP. Typically wears 3L o2 Intubated in ED given worsening respiratory acidosis/hypercapnic respiratory failure despite BiPAP CXR (01/23): extensive bilateral pulmonary opacities R > L. pneumonia vs pulm edema. Unable to obtain CT to further differentiate edema vs pneumonia given body habitus remains sedated on precedex; PRN haldol / ativan while intubated Continue ICU level of care Dr. Mcintyre, Pulmonology/marketing production specialist consulted Continue duonebs, IV diamox lactic acidosis secondary to hypoxia Blood cx (01/23): NGTD sputum cx (01/24): MRSA only sensitive to vanc urine cx: E. Coli ESBL switched levaquin (01/24-01/25) to vanc / merrem (01/26-) given culture sensitivities continue vanc / merrem (01/26-) afebrile, +leukocytosis 11.8 -> 12.9 (01/27) failed vent wean trial 01/24 -> patient desaturated quickly continue weaning vent trials throughout the weekend repeat CXR (01/26) with partial resolution in left lung opacities. No change to right lung opacities KUB with large amount of stool OGT in place. Tolerating tube feeds. no BM yet start protonix 01/27 - for prophylaxis UTI, E. coli Esbl urinalysis in ED with 75 LE, 20-50 WBC urine cx (01/23): E. coli Esbl patient intubated/sedated. unsure if symptomatic switched antibiotics to merrem / vanc (01/26) given culture sensitivities Acute on chronic diastolic CHF responded well to lasix Continue diuresis with IV Diamox / IV lasix past echo from 08/21/23 with 77%EF but poor windows/difficult evaluate with body habitus IDDM2 with hyperglycemia Accu-Checks q6h, SSI hyperglycemia worsened by steroids patient is [facility] at [facility] continue semglee and titrate up as needed Morbid obesity Once alert/extubated will need to discuss lifestyle changes/weight loss options VTE: Lovenox Code: Full Dispo: back to [facility], 3+ days wean vent as tolerated, antibiotics
[2024-01-28] MEDS ORDERED: ARFORMOTEROL TARTRATE 15 MCG/2 ML VIAL.NEB ONE ×2 (08:06→20:24)
[2024-01-28] MEDS ORDERED: FUROSEMIDE 40 MG/4 ML VIAL ONE (08:41)
[2024-01-28] MEDS: PANTOPRAZOLE 40 MG INJ IVP SCH (08:44)
[2024-01-28] MEDS ORDERED: WATER FOR INJ,STERILE 10 ML ONE (08:46)
--- NOTE | 2024-01-28 11:17 | P.PN ---
Subjective Date of Service: 01/28/24 Chief Complaint: Respiratory failure No change in patient's condition responsive hypoxic Review of Systems is unable to be obtained Physical Examination - Vital Signs Temperature: 98.2 F Blood Pressure: 136/74 Pulse: 71 Respirations: 21 Pulse Ox (%): 94 - Physical Exam General: Unresponsive Respiratory: Clear to auscultation bilaterally Cardiovascular: No edema, Regular rate/rhythm, Normal S1 S2 Assessment And Plan - Current Problems (Diagnosis) (1) Respiratory failure with hypoxia and hypercapnia Current Visit: No Status: Acute Plan: Respiratory failure Vent settings have been adjusted labs chemistries all reviewed reduce the dose of Protonix to once a day there is no evidence of GI bleeding patient is not at risk for GI bleeding probably can stop PPIs new with tube feeds at goal to p.o. Diamox and spironolactone DC Lasix chest x-ray await for trach ENT consult bicarb elevated sugars are still high recent dose of insulin will probably need at least 100 units of insulin once in the evening Qualifiers: Chronicity: acute on chronic Qualified Code(s): J96.21 - Acute and chronic respiratory failure with hypoxia; J96.22 - Acute and chronic respiratory failure with hypercapnia
[2024-01-28] MEDS: SPIRONOLACTONE 25 MG TABLET PO SCH (11:44)
[2024-01-28] MEDS ORDERED: acetaZOLAMIDE 250 MG TAB ONE (20:21)
[2024-01-28] MEDS: acetaZOLAMIDE 250 MG TAB PO SCH (21:49)
[2024-01-28] MEDS: INSULIN GLARGINE 100 UNIT/ML SQ SCH (21:55)
[2024-01-29] MEDS ORDERED: NA CHLORIDE 0.9% 100 ML ONE ×4 (01:48→23:59)
[2024-01-29] MEDS ORDERED: Meropenem 1000 MG/VIAL IV ONE ×4 (01:48→23:59)
[2024-01-29 05:15] LABS: Absolute Basophils 0.1 K/uL (0-0.5); Absolute Eosinophils 0.3 K/uL (0-0.5); Absolute Lymphocytes (CBC) 1.1 K/uL (0.7-4.9); Absolute Monocytes 0.7 K/uL (0.1-1.3); Absolute Neutrophil 9.3 K/uL (1.8-8.0); Basophils % 0.7 % (0-1.3); Eosinophils % 2.6 % (0-4.4); Hematocrit 29.3 % (36.0-45.0); Hemoglobin 9.3 g/dL (12.0-15.0); Lymphocytes % 9.7 % (15.3-44.8); MCH 31.2 pg (27.0-35.0); MCHC 31.7 g/dL (32.0-36.0); MCV 98.3 fL (80-100); Monocytes % 6.3 % (3.3-12.3); Neutrophils % 80.7 % (41.7-73.7); Nucleated Red Blood Cells % 0.1 % (0-0); Platelets 318 thou/uL (152-406); RBC Red Blood Cell Count 2.98 M/uL (3.86-4.86); Red Cell Distribution Width 17.4 % (12.1-15.2)
[2024-01-29 05:42] LABS: Albumin 1.9 g/dL (3.4-5.0); Albumin/Globulin Ratio 0.4 (1.1-1.8); Anion Gap 6.8 mEq/L (5.0-15.0); Bilirubin Total 0.6 mg/dL (0.2-1.0); Globulin 4.4 g/dL (2.3-3.5); Magnesium 2.3 mg/dL (1.6-2.4); Potassium 3.8 mEq/L (3.5-5.1); Protein, Total 6.3 g/dL (6.4-8.2)
--- NOTE | 2024-01-29 07:02 | RAD REPORT ---
EXAM DESCRIPTION: [facility] Single View01/29/2024 5:45 am CLINICAL HISTORY: Respiratory failure COMPARISON: January 27, 2024 FINDINGS: Worsening in the right basilar consolidation Mild left lung opacities Heart remains enlarged Endotracheal nasogastric tubes in good position IMPRESSION: Worsening in the right basilar consolidation which may represent pneumonia
[2024-01-29] MEDS ORDERED: ARFORMOTEROL TARTRATE 15 MCG/2 ML VIAL.NEB ONE ×2 (07:05→20:17)
--- NOTE | 2024-01-29 07:15 | P.PN ---
Date of Service: 01/29/24 Subjective: remains sedated/intubated. on 60% fio2 had BMs yesterday tube feeds at goal, tolerating blood glucose high afebrile ROS: unable to be obtained - intubated/sedated Physical Exam: GEN: sedated on vent, morbidly obese HEENT: Normal conjunctiva, sclera anicteric CV: Regular rate and rhythm, 1+ bilateral lower extremity edema Pulm: on wheel alignment mechanic ventilation, 60%FIo2, diminished at bases b/l, coarse crackles ABD: Soft, nontender, nondistended Neuro: intubated/sedated Goldman in place OGT in place vitals reviewed Problem List: Acute on chronic hypercapnic/hypoxic respiratory failure secondary to Pneumonia / acute COPD exacerbation / obesity hypoventilation syndrome acute on chronic COPD (~3L home O2) UTI, E. coli Esbl Acute on chronic diastolic CHF IDDM2 with hyperglycemia Morbid obesity constipation Acute on chronic hypercapnic/hypoxic respiratory failure secondary to Pneumonia / acute COPD exacerbation / obesity hypoventilation syndrome acute on chronic COPD (~3L home O2) Reported worsening dyspnea, hypoxia at retirement. retirement reports Pt generally noncompliant with CPAP. Typically wears 3L o2 Intubated in ED given worsening respiratory acidosis/hypercapnic respiratory failure despite BiPAP CXR (01/23): extensive bilateral pulmonary opacities R > L. pneumonia vs pulm edema. Unable to obtain CT to further differentiate edema vs pneumonia given body habitus remains sedated on precedex; PRN haldol / ativan while intubated unable to wean off vent over the weekend -> patient desaturated quickly repeat CXR (01/28): slight worsening in right basilar consolidation 01/28 - ENT consulted per pulm to eval for possible trach Continue ICU level of care Dr. Mcintyre, Pulmonology/site medical director consulted Continue duonebs, diamox lactic acidosis secondary to hypoxia Blood cx (01/23): NGTD sputum cx (01/24): MRSA only sensitive to vanc urine cx: E. Coli ESBL switched levaquin (01/24-01/25) to vanc / merrem (01/26-) given culture sen sitivities continue vanc / merrem (01/26-) afebrile, +leukocytosis improving Tolerating tube feeds. Had BM yesterday continue protonix for prophylaxis; added 01/27 UTI, E. coli Esbl urinalysis in ED with 75 LE, 20-50 WBC urine cx (01/23): E. coli Esbl patient intubated/sedated Continue merrem / vanc (01/26) Acute on chronic diastolic CHF responded well to lasix. received lasix for few days now dc'd 01/27 Continue diuresis with PO Diamox / spironolactone past echo from 08/21/23 with 77%EF but poor windows/difficult evaluate with body habitus IDDM2 with hyperglycemia Accu-Checks q6h, SSI hyperglycemia worsened by steroids initially now secondary to tube feeds patient is on insulin at retirement insulin adjusted further today Morbid obesity Once alert/extubated will need to discuss lifestyle changes/weight loss options VTE: Lovenox Code: Full Dispo: back to [facility], 3+ days wean vent as tolerated, antibiotics may need trach
[2024-01-29] MEDS ORDERED: acetaZOLAMIDE 250 MG TAB ONE (08:29)
[2024-01-29] MEDS: PANTOPRAZOLE 40 MG INJ IVP SCH (08:33)
--- NOTE | 2024-01-29 08:45 | P.PN ---
Subjective Date of Service: 01/29/24 Chief Complaint: Respiratory failure No change in patient's condition she continues to remain hypoxic agitated unresponsive with secretions and initiated decreasing tidal volume Review of Systems is unable to be obtained Physical Examination - Vital Signs Temperature: 98.2 F Blood Pressure: 113/69 Pulse: 76 Respirations: 24 Pulse Ox (%): 96 - Physical Exam General: Unresponsive Respiratory: Clear to auscultation bilaterally Cardiovascular: No edema, Regular rate/rhythm, Normal S1 S2 Assessment And Plan - Current Problems (Diagnosis) (1) Respiratory failure with hypoxia and hypercapnia Current Visit: No Status: Acute Plan: Respiratory failure. Been elevated now will increase the dose of insulin chest x-ray looks a little worse she does have a right lower lobe infiltrate endotracheal tube satisfactory position white count is declining function stable 60% FiO2 pressure control is a dose of insulin ENT consult for possible tracheostomy is not weanable. Sputum cultures Qualifiers: Chronicity: acute on chronic Qualified Code(s): J96.21 - Acute and chronic respiratory failure with hypoxia; J96.22 - Acute and chronic respiratory failure with hypercapnia
[2024-01-29] MEDS: acetaZOLAMIDE 250 MG TAB PO SCH (08:48)
[2024-01-29] MEDS: SPIRONOLACTONE 25 MG TABLET PO SCH (08:48)
[2024-01-29] MEDS ORDERED: INSULIN 70/30 100 UNITS/ML SQ ONE (09:32)
[2024-01-29] MEDS: INSULIN 70/30 100 UNITS/ML SQ SCH (09:34)
[2024-01-29] MEDS ORDERED: INSULIN REGULAR (HUMAN) 100 UNIT/ML ONE ×2 (11:47→16:19)
[2024-01-29] MEDS ORDERED: INSULIN GLARGINE 100 UNIT/ML SQ ONE (19:57)
[2024-01-30] MEDS ORDERED: INSULIN REGULAR (HUMAN) 100 UNIT/ML ONE ×4 (00:06→14:02)
[2024-01-30] MEDS ORDERED: MIDAZOLAM HCL 2 MG/2 ML INJ ONE (03:36)
[2024-01-30 04:50] LABS: Absolute Basophils 0.1 K/uL (0-0.5); Absolute Eosinophils 0.3 K/uL (0-0.5); Absolute Lymphocytes (CBC) 1.2 K/uL (0.7-4.9); Absolute Monocytes 0.8 K/uL (0.1-1.3); Absolute Neutrophil 7.1 K/uL (1.8-8.0); Basophils % 0.9 % (0-1.3); Hematocrit 27.9 % (36.0-45.0); Hemoglobin 8.7 g/dL (12.0-15.0); Lymphocytes % 12.5 % (15.3-44.8); MCHC 31.3 g/dL (32.0-36.0); MCV 98.9 fL (80-100); MPV 8.9 fL (7.6-11.3); Monocytes % 8.3 % (3.3-12.3); Neutrophils % 75.3 % (41.7-73.7); Platelets 320 thou/uL (152-406); RBC Red Blood Cell Count 2.82 M/uL (3.86-4.86); Red Cell Distribution Width 18.1 % (12.1-15.2)
[2024-01-30 05:00] LABS: Albumin 1.9 g/dL (3.4-5.0); Albumin/Globulin Ratio 0.4 (1.1-1.8); Anion Gap 5.2 mEq/L (5.0-15.0); Bilirubin Total 0.4 mg/dL (0.2-1.0); Globulin 4.4 g/dL (2.3-3.5); Magnesium 2.5 mg/dL (1.6-2.4); Potassium 4.2 mEq/L (3.5-5.1); Protein, Total 6.3 g/dL (6.4-8.2)
[2024-01-30] MEDS ORDERED: FENTANYL CITR 100 MCG/2 ML ONE (05:59)
--- NOTE | 2024-01-30 07:26 | RAD REPORT ---
EXAM DESCRIPTION: RAD - Chest Single View - 01/30/2024 6:54 am CLINICAL HISTORY: Desaturating Chest pain. COMPARISON: Chest Single View dated 01/29/2024; Chest Single View dated 01/27/2024; Abdomen 1 View ([facility]) dated 01/27/2024; Chest Single View dated 01/26/2024 FINDINGS: Portable technique limits examination quality. Tip of the endotracheal tube is at the level of the aortic arch mid aspect. Enteric tube descends int o the upper abdomen, tip likely in the proximal stomach. Moderate bilateral pulmonary opacities, grea ter on the right appears essentially unchanged. The heart is moderately enlarged. Right-sided PICC li ne is in place has tip in the SVC. IMPRESSION: Stable chest since 01/29/2024 study.
[2024-01-30] MEDS ORDERED: ARFORMOTEROL TARTRATE 15 MCG/2 ML VIAL.NEB ONE ×2 (07:47→20:01)
[2024-01-30] MEDS: SPIRONOLACTONE 25 MG TABLET PO SCH (08:54)
[2024-01-30] MEDS ORDERED: NA CHLORIDE 0.9% 100 ML ONE ×2 (09:02→14:04)
[2024-01-30] MEDS ORDERED: Meropenem 1000 MG/VIAL IV ONE ×2 (09:02→14:04)
[2024-01-30] MEDS ORDERED: acetaZOLAMIDE 250 MG TAB ONE (09:02)
[2024-01-30] MEDS: acetaZOLAMIDE 250 MG TAB PO SCH (09:05)
[2024-01-30] MEDS ORDERED: INSULIN 70/30 100 UNITS/ML SQ ONE (09:40)
--- NOTE | 2024-01-30 13:01 | P.PN ---
Subjective Date of Service: 01/30/24 Chief Complaint: Respiratory failure Patient is intubated and sedated and not able to give any subjective complaint. She is stable on mechanical [id number]. No issues overnight, no recorded fever. She is tolerating NG tube feeding. Physical Examination - Vital Signs Temperature: 98 F Blood Pressure: 120/71 Pulse: 67 Respirations: 19 Pulse Ox (%): 96 - Studies Microbiology Data (last 24 hrs): 01/24/24 14:40 Blood - Blood Aerobic Blood Culture - Final No growth in 5 days. 01/24/24 14:40 Blood - Blood Anaerobic Blood Culture - Final No growth in 5 days. Assessment And Plan - Plan Physical Exam: GEN: sedated on vent, morbidly obese HEENT: Normal conjunctiva, sclera anicteric, ET tube and NG tube in place. CV: Regular rate and rhythm, 1+ bilateral lower extremity edema Pulm: on mechanical drawing teacher ventilation, diminished at bases b/l, mild bibasilar crackles. ABD: Soft, nontender, nondistended Neuro: intubated/sedated Goldman in place OGT in place vitals reviewed Problem List: Acute on chronic hypercapnic and hypoxic respiratory failure secondary to acute COPD exacerbation / obesity hypoventilation syndrome Bacterial pneumonia UTI, E. coli Esbl Acute on chronic diastolic CHF IDDM2 with hyperglycemia Morbid obesity constipation Acute on chronic hypercapnic/hypoxic respiratory failure secondary to Pneumonia / acute COPD exacerbation / obesity hypoventilation syndrome acute on chronic COPD (~3L home O2) Reported worsening dyspnea, [facility] jail[facility] jail reports Pt generally noncompliant with CPAP. Typically wears 3L o2 Intubated in ED given worsening respiratory acidosis/hypercapnic respiratory failure despite BiPAP CXR (01/23): extensive bilateral pulmonary opacities R > L. pneumonia vs pulm edema. Unable to obtain CT to further differentiate edema vs pneumonia given body habitus Difficult weaning vent. repeat CXR (01/28): slight worsening in right basilar consolidation Pulmonary recommended tracheostomy which can affect limited effect of obstructive sleep apnea and elevated obesity hypoventilation ENT consulted to evaluate for tracheostomy today. Hopefully may be able to wean vent after tracheostomy. Continue ICU level of care Dr. Mcintyre, Pulmonology/applications administrator is following. Continue duonebs, diamox lactic acidosis secondary to hypoxia Blood cx (01/23): NGTD sputum cx (01/24): MRSA only sensitive to vanc urine cx: E. Coli ESBL Status post Levaquin, switched to vancomycin and Merrem. continue protonix for prophylaxis; added 01/27 UTI, E. coli Esbl urinalysis in ED with 75 LE, 20-50 WBC urine cx (01/23): E. coli Esbl patient intubated/sedated Continue merrem / vanc (01/26) Acute on chronic diastolic CHF responded well to lasix and then switched to Diamox due to metabolic alkalosis. Continue spironolactone IDDM2 with hyperglycemia Accu-Checks q6h, SSI Titrate basal insulin. Morbid obesity Once alert/extubated will need to discuss lifestyle changes/weight loss options VTE: Lovenox Code: Full Dispo: back to [facility] pending vent weaning to oxygen by trach collar
[2024-01-30] MEDS: ALBUTEROL 2.5 MG/3 ML NEB SOL NEB PRN (20:00)
[2024-01-31] MEDS ORDERED: Meropenem 1000 MG/VIAL IV ONE ×3 (00:14→17:30)
[2024-01-31] MEDS ORDERED: NA CHLORIDE 0.9% 50 ML ONE (00:15)
[2024-01-31 04:57] LABS: Absolute Basophils 0.1 K/uL (0-0.5); Absolute Eosinophils 0.2 K/uL (0-0.5); Absolute Lymphocytes (CBC) 1.4 K/uL (0.7-4.9); Absolute Monocytes 0.8 K/uL (0.1-1.3); Absolute Neutrophil 6.4 K/uL (1.8-8.0); Eosinophils % 2.2 % (0-4.4); Hematocrit 27.4 % (36.0-45.0); Hemoglobin 8.6 g/dL (12.0-15.0); Lymphocytes % 15.8 % (15.3-44.8); MCH 30.6 pg (27.0-35.0); MCHC 31.4 g/dL (32.0-36.0); MCV 97.5 fL (80-100); MPV 9.6 fL (7.6-11.3); Monocytes % 9.5 % (3.3-12.3); Neutrophils % 71.5 % (41.7-73.7); Nucleated Red Blood Cells % 0.1 % (0-0); Platelets 347 thou/uL (152-406); RBC Red Blood Cell Count 2.81 M/uL (3.86-4.86); Red Cell Distribution Width 17.6 % (12.1-15.2)
[2024-01-31 05:12] LABS: Albumin 1.8 g/dL (3.4-5.0); Albumin/Globulin Ratio 0.4 (1.1-1.8); Anion Gap 4.8 mEq/L (5.0-15.0); Bilirubin Total 0.5 mg/dL (0.2-1.0); Globulin 4.1 g/dL (2.3-3.5); Magnesium 2.3 mg/dL (1.6-2.4); Potassium 3.8 mEq/L (3.5-5.1); Protein, Total 5.9 g/dL (6.4-8.2)
[2024-01-31] MEDS ORDERED: KCL 20 MEQ/100 mL IVPB 100 ML IV ONE (06:12)
[2024-01-31] MEDS: KCL 20 MEQ/100 mL IVPB 20 MEQ/100 ML BAG IV SCH (06:13)
[2024-01-31] MEDS ORDERED: ARFORMOTEROL TARTRATE 15 MCG/2 ML VIAL.NEB ONE ×2 (07:55→19:48)
[2024-01-31] MEDS ORDERED: NA CHLORIDE 0.9% 100 ML ONE ×2 (08:18→17:30)
--- NOTE | 2024-01-31 08:22 | P.PN ---
Subjective Date of Service: 01/30/24 Chief Complaint: Respiratory failure No change in patient's condition still continues to remain unresponsive difficult to wean off the ventilator Review of Systems is unable to be obtained Physical Examination - Vital Signs Temperature: 98 F Blood Pressure: 136/86 Pulse: 65 Respirations: 19 Pulse Ox (%): 96 - Physical Exam General: Unresponsive Respiratory: Clear to auscultation bilaterally, Diminished Cardiovascular: No edema, Regular rate/rhythm Assessment And Plan - Current Problems (Diagnosis) (1) Respiratory failure with hypoxia and hypercapnia Current Visit: No Status: Acute Plan: Has respiratory failure unable to wean consult ENT for possible tracheostomy was reviewed blood sugar elevated insulin increased normalized treated for MRSA and ESBL continue with spironolactone and acetazolamide once a day r tolerating tube feeds repeat sputum culture chest x-ray reviewed endotracheal tube satisfactory position I am not sure if she has an effusion or an infiltrate in the right lower lobe Qualifiers: Chronicity: acute on chronic Qualified Code(s): J96.21 - Acute and chronic respiratory failure with hypoxia; J96.22 - Acute and chronic respiratory failure with hypercapnia
--- NOTE | 2024-01-31 08:26 | P.PN ---
Subjective Date of Service: 01/31/24 Chief Complaint: Respiratory failure Today patient is more responsive more cooperative tolerating SIMV Review of Systems is unable to be obtained Physical Examination - Vital Signs Temperature: 98 F Blood Pressure: 136/86 Pulse: 65 Respirations: 19 Pulse Ox (%): 96 - Physical Exam General: Alert, Cooperative Respiratory: Clear to auscultation bilaterally, Diminished, Friction rub Cardiovascular: Regular rate/rhythm, Normal S1 S2 Assessment And Plan - Current Problems (Diagnosis) (1) Respiratory failure with hypoxia and hypercapnia Current Visit: No Status: Acute Plan: Respiratory failure respiratory therapist at bedside plan to do some spontaneous breathing trials see if we can wean the patient off the ventilator x-ray no change blood sugar is slightly lower increase the dose of insulin Qualifiers: Chronicity: acute on chronic Qualified Code(s): J96.21 - Acute and chronic respiratory failure with hypoxia; J96.22 - Acute and chronic respiratory failure with hypercapnia
--- NOTE | 2024-01-31 08:43 | RAD REPORT ---
[facility] CLINICAL HISTORY: Respiratory failure COMPARISON: Chest Single View dated 01/30/2024; Chest Single View dated 01/29/2024; Chest Single View dated 01/27/2024; Abdomen 1 View ([facility]) dated 01/27/2024 TECHNIQUE: Portable AP view of the chest. FINDINGS: Endotracheal tube and enteric tube unchanged in position. Bilateral patchy airspace opacit ies most pronounced centrally and at the lung bases more so on the right, stable in appearance. No p neumothorax or sizable effusion. Stable cardiomegaly. Mediastinal contours are unchanged. IMPRESSION: Stable findings as above, which may relate to pulmonary edema or ARDS. Superimposed pneu monia would be difficult to exclude.
[2024-01-31] MEDS ORDERED: INSULIN 70/30 100 UNITS/ML SQ ONE (08:45)
[2024-01-31] MEDS: INSULIN 70/30 100 UNITS/ML SQ SCH (08:46)
[2024-01-31] MEDS ORDERED: INSULIN REGULAR (HUMAN) 100 UNIT/ML ONE (18:50)
[2024-01-31] MEDS ORDERED: INSULIN GLARGINE 100 UNIT/ML SQ ONE (20:12)
[2024-01-31] MEDS: INSULIN GLARGINE 100 UNIT/ML SQ SCH (20:34)
[2024-01-31] MEDS ORDERED: MIDAZOLAM HCL 2 MG/2 ML INJ ONE (20:41)
[2024-02-01] MEDS ORDERED: Meropenem 1000 MG/VIAL IV ONE ×3 (00:58→17:04)
[2024-02-01] MEDS ORDERED: NA CHLORIDE 0.9% 100 ML ONE ×3 (00:59→17:04)
[2024-02-01] MEDS ORDERED: INSULIN REGULAR (HUMAN) 100 UNIT/ML ONE ×4 (01:13→18:12)
[2024-02-01] MEDS ORDERED: MIDAZOLAM HCL 2 MG/2 ML INJ ONE (03:01)
[2024-02-01 05:56] LABS: Absolute Basophils 0.1 K/uL (0-0.5); Absolute Eosinophils 0.2 K/uL (0-0.5); Absolute Lymphocytes (CBC) 1.9 K/uL (0.7-4.9); Absolute Neutrophil 7.7 K/uL (1.8-8.0); Basophils % 1.2 % (0-1.3); Eosinophils % 1.6 % (0-4.4); Hematocrit 27.2 % (36.0-45.0); Hemoglobin 8.4 g/dL (12.0-15.0); Lymphocytes % 17.7 % (15.3-44.8); MCH 30.2 pg (27.0-35.0); MCHC 30.8 g/dL (32.0-36.0); MCV 98.2 fL (80-100); MPV 9.6 fL (7.6-11.3); Monocytes % 9.3 % (3.3-12.3); Neutrophils % 70.2 % (41.7-73.7); Nucleated Red Blood Cells % 0.1 % (0-0); Platelets 399 thou/uL (152-406); RBC Red Blood Cell Count 2.77 M/uL (3.86-4.86); Red Cell Distribution Width 18.6 % (12.1-15.2)
[2024-02-01 06:10] LABS: Albumin 1.8 g/dL (3.4-5.0); Albumin/Globulin Ratio 0.5 (1.1-1.8); Anion Gap 4.7 mEq/L (5.0-15.0); Bilirubin Total 0.7 mg/dL (0.2-1.0); Magnesium 2.2 mg/dL (1.6-2.4); Potassium 3.7 mEq/L (3.5-5.1); Protein, Total 5.8 g/dL (6.4-8.2)
--- NOTE | 2024-02-01 07:47 | RAD REPORT ---
EXAM DESCRIPTION: [facility] Single View02/01/2024 5:33 am CLINICAL HISTORY: Respiratory failure COMPARISON: January 31, 2024 FINDINGS: Nasogastric tube in the proximal stomach. Endotracheal tube at the top of the level of the aortic arch Mild improvement in the bilateral pulmonary opacities. Heart remains enlarged IMPRESSION: Mild improvement in the bilateral pulmonary opacities
[2024-02-01] MEDS ORDERED: ARFORMOTEROL TARTRATE 15 MCG/2 ML VIAL.NEB ONE ×2 (07:58→19:53)
[2024-02-01] MEDS ORDERED: INSULIN 70/30 100 UNITS/ML SQ ONE (08:28)
[2024-02-01] MEDS ORDERED: acetaZOLAMIDE 250 MG TAB ONE (09:16)
--- NOTE | 2024-02-01 10:33 | P.PN ---
Subjective Date of Service: 01/31/24 Chief Complaint: Respiratory failure Patient is intubated and sedated and not able to give any subjective complaint. Patient was more awake and tolerated SIMV. No recorded fever. Physical Examination - Vital Signs Temperature: 99.6 F Blood Pressure: 146/70 Pulse: 94 Respirations: 32 Pulse Ox (%): 91 Assessment And Plan - Plan Physical Exam: GEN: sedated on vent, morbidly obese HEENT: Normal conjunctiva, sclera anicteric, ET tube and NG tube in place. CV: Regular rate and rhythm, 1+ bilateral lower extremity edema Pulm: on diesel technician mechanic ventilation, diminished at bases b/l, mild bibasilar crackles. ABD: Soft, nontender, nondistended Neuro: intubated/sedated Goldman in place OGT in place vitals reviewed Problem List: Acute on chronic hypercapnic and hypoxic respiratory failure secondary to acute COPD exacerbation / obesity hypoventilation syndrome Bacterial pneumonia UTI, E. coli Esbl Acute on chronic diastolic CHF IDDM2 with hyperglycemia Morbid obesity constipation Acute on chronic hypercapnic/hypoxic respiratory failure secondary to Pneumonia / acute COPD exacerbation / obesity hypoventilation syndrome acute on chronic COPD (~3L home O2) Intubated in ED given worsening respiratory acidosis/hypercapnic respiratory failure despite BiPAP CXR (01/23): extensive bilateral pulmonary opacities R > L. pneumonia vs pulm edema. Unable to obtain CT to further differentiate edema vs pneumonia given body habitus Difficult weaning vent. Patient tolerated SIMV today. repeat CXR (01/28): slight worsening in right basilar consolidation Pulmonary recommended tracheostomy which can affect limited effect of obstructive sleep apnea and elevated obesity hypoventilation ENT consulted to evaluate for tracheostomy. ENT recommended weaning trials for now. Continue ICU level of care Dr. Mcintyre, Pulmonology/supervisor cab is following. Continue duonebs, diamox lactic acidosis secondary to hypoxia Blood cx (01/23): NGTD sputum cx (01/24): MRSA only sensitive to vanc urine cx: E. Coli ESBL Status post Levaquin, switched to vancomycin and Merrem. continue protonix for prophylaxis; added 01/27 Continue IV vancomycin and Merrem for pneumonia. UTI, E. coli Esbl urinalysis in ED with 75 LE, 20-50 WBC urine cx (01/23): E. coli Esbl patient intubated/sedated Continue merrem / vanc (01/26) Acute on chronic diastolic CHF responded well to lasix and then switched to Diamox due to metabolic alkalosis. Monitor intake and output. Restrict fluid to 1500 ml per day. Continue spironolactone IDDM2 with hyperglycemia Accu-Checks q6h, SSI Titrate basal insulin. Morbid obesity Once alert/extubated will need to discuss lifestyle changes/weight loss options VTE: Lovenox Code: Full Dispo: back to [facility] pending vent weaning and extubation.
--- NOTE | 2024-02-01 10:46 | P.PN ---
Subjective Date of Service: 02/01/24 Chief Complaint: Respiratory failure No major changes from yesterday. Patient is on SIMV and tolerating it during my examination this morning. Nursing staff report she tolerated CPAP for about 20-30 minutes today. No recorded fever. Physical Examination - Vital Signs Temperature: 99.6 F Blood Pressure: 146/70 Pulse: 94 Respirations: 32 Pulse Ox (%): 91 Assessment And Plan - Plan Physical Exam: GEN: sedated on vent, morbidly obese HEENT: Normal conjunctiva, sclera anicteric, ET tube and NG tube in place. CV: Regular rate and rhythm, 1+ bilateral lower extremity edema Pulm: on boat diesel motor mechanic ventilation, diminished at bases b/l, mild bibasilar crackles. ABD: Soft, nontender, nondistended Neuro: intubated/sedated Skin: Lichenification of patches of skin-bilateral medial thigh. Goldman in place OGT in place vitals reviewed Problem List: Acute on chronic hypercapnic and hypoxic respiratory failure secondary to acute COPD exacerbation / obesity hypoventilation syndrome Bacterial pneumonia UTI, E. coli Esbl Acute on chronic diastolic CHF IDDM2 with hyperglycemia Morbid obesity constipation Acute on chronic hypercapnic/hypoxic respiratory failure secondary to Pneumonia / acute COPD exacerbation / obesity hypoventilation syndrome acute on chronic COPD (~3L home O2) Intubated in ED given worsening respiratory acidosis/hypercapnic respiratory failure despite BiPAP CXR (01/23): extensive bilateral pulmonary opacities R > L. pneumonia vs pulm edema. Unable to obtain CT to further differentiate edema vs pneumonia given body habitus Difficult weaning vent. Patient tolerated SIMV today. repeat CXR (01/28): slight worsening in right basilar consolidation Pulmonary recommended tracheostomy which can affect limited effect of obstructive sleep apnea and elevated obesity hypoventilation ENT consulted to evaluate for tracheostomy. ENT recommended weaning trials for now. Dr. Mcintyre, Pulmonology/tender labor is following. Continue duonebs, diamox Blood cx (01/23): NGTD sputum cx (01/24): MRSA only sensitive to vanc urine cx: E. Coli ESBL Status post Levaquin, switched to vancomycin and Merrem. Continue IV vancomycin and Merrem for pneumonia. UTI, E. coli Esbl urinalysis in ED with 75 LE, 20-50 WBC urine cx (01/23): E. coli Esbl patient intubated/sedated Continue merrem / vanc (01/26) Acute on chronic diastolic CHF responded well to lasix and then switched to Diamox due to metabolic alkalosis. Monitor intake and output. Fluid restriction. Continue spironolactone IDDM2 with hyperglycemia Accu-Checks q6h, SSI Titrate basal insulin. Morbid obesity Once alert/extubated will need to discuss lifestyle changes/weight loss options VTE: Lovenox Code: Full Dispo: [facility] pending vent weaning and extubation.
--- NOTE | 2024-02-01 12:42 | RAD REPORT ---
EXAM DESCRIPTION: RAD - Abdomen 1 View ([facility]) - 02/01/2024 12:22 pm CLINICAL HISTORY: NGT insertion COMPARISON: Abdomen 1 View ([facility]) dated 01/27/2024; Chest Single View dated 02/01/2024 FINDINGS/IMPRESSION: NG tube tip overlies the stomach in satisfactory position. Airspace disease bet ter demonstrated on the same-day chest radiograph.
--- NOTE | 2024-02-01 16:19 | P.PN ---
Subjective Date of Service: 02/01/24 Chief Complaint: Respiratory failure More alert and responsive today Stable Review of Systems is unable to be obtained Physical Examination - Vital Signs Temperature: 99.6 F Blood Pressure: 128/73 Pulse: 95 Respirations: 24 Pulse Ox (%): 92 - Physical Exam General: Alert, Cooperative Respiratory: Clear to auscultation bilaterally Cardiovascular: No edema, Regular rate/rhythm, Normal S1 S2 Assessment And Plan - Current Problems (Diagnosis) (1) Respiratory failure with hypoxia and hypercapnia Current Visit: No Status: Acute Plan: Resp failire better more alert. Weaning trial MRSA isolated from Sputum add bactrim. Inc Sodium DC sprionolactone. labs reviewed / CXRY mild improvement Patient decries some CPAP yesterday for about 10 minutesWe need to increase water flushes through the NG tube Qualifiers: Chronicity: acute on chronic Qualified Code(s): J96.21 - Acute and chronic respiratory failure with hypoxia; J96.22 - Acute and chronic respiratory failure with hypercapnia
[2024-02-01] MEDS ORDERED: INSULIN GLARGINE 100 UNIT/ML SQ ONE (21:13)
[2024-02-01] MEDS ORDERED: SMZ./TMP. 800/160 MG TABLET ONE (21:16)
[2024-02-01] MEDS: SMZ./TMP. 800/160 MG TABLET PO SCH (21:19)
[2024-02-02] MEDS ORDERED: INSULIN REGULAR (HUMAN) 100 UNIT/ML ONE ×4 (00:02→17:00)
[2024-02-02] MEDS ORDERED: Meropenem 1000 MG/VIAL IV ONE ×3 (00:06→17:01)
[2024-02-02] MEDS ORDERED: NA CHLORIDE 0.9% 100 ML ONE ×3 (00:06→17:01)
[2024-02-02 05:17] LABS: Absolute Basophils 0.1 K/uL (0-0.5); Absolute Eosinophils 0.5 K/uL (0-0.5); Absolute Lymphocytes (CBC) 1.9 K/uL (0.7-4.9); Absolute Monocytes 0.7 K/uL (0.1-1.3); Absolute Neutrophil 5.9 K/uL (1.8-8.0); Basophils % 0.9 % (0-1.3); Eosinophils % 5.8 % (0-4.4); Hematocrit 26.5 % (36.0-45.0); Hemoglobin 8.3 g/dL (12.0-15.0); Lymphocytes % 21.1 % (15.3-44.8); MCH 30.7 pg (27.0-35.0); MCHC 31.3 g/dL (32.0-36.0); MCV 97.8 fL (80-100); MPV 8.9 fL (7.6-11.3); Monocytes % 7.1 % (3.3-12.3); Neutrophils % 65.1 % (41.7-73.7); Nucleated Red Blood Cells % 0.2 % (0-0); Platelets 420 thou/uL (152-406); RBC Red Blood Cell Count 2.71 M/uL (3.86-4.86); Red Cell Distribution Width 18.5 % (12.1-15.2)
[2024-02-02 05:34] LABS: Albumin 1.9 g/dL (3.4-5.0); Albumin/Globulin Ratio 0.5 (1.1-1.8); Anion Gap 3.5 mEq/L (5.0-15.0); Bilirubin Total 0.4 mg/dL (0.2-1.0); Globulin 3.8 g/dL (2.3-3.5); Magnesium 2.5 mg/dL (1.6-2.4); Potassium 3.5 mEq/L (3.5-5.1); Protein, Total 5.7 g/dL (6.4-8.2)
[2024-02-02] MEDS ORDERED: KCL 20 MEQ/100 mL IVPB 100 ML IV ONE (06:29)
[2024-02-02] MEDS: KCL 20 MEQ/100 mL IVPB 20 MEQ/100 ML BAG IV SCH (06:38)
[2024-02-02] MEDS ORDERED: ARFORMOTEROL TARTRATE 15 MCG/2 ML VIAL.NEB ONE ×2 (07:40→19:42)
--- NOTE | 2024-02-02 08:16 | P.PN ---
Subjective Date of Service: 02/02/24 Chief Complaint: Respiratory failure Patient is more alert responsive cooperative on SIMV and pressure support Review of Systems is unable to be obtained Physical Examination - Vital Signs Temperature: 98.6 F Blood Pressure: 129/78 Pulse: 86 Respirations: 25 Pulse Ox (%): 94 - Physical Exam General: Alert, Cooperative Respiratory: Clear to auscultation bilaterally, Diminished Cardiovascular: No edema, Regular rate/rhythm, Normal S1 S2 Assessment And Plan - Current Problems (Diagnosis) (1) Respiratory failure with hypoxia and hypercapnia Current Visit: No Status: Acute Plan: Patient's condition is stable she is more alert and responsive to wean her off from the ventilator has copious thick secretions secretions still positive for MRSA started on Bactrim yesterday and is hyponatremic increase drop of fluids his blood sugars are still elevated crease insulin count is declining chest x- ray difficult to evaluate for worsening noted Qualifiers: Chronicity: acute on chronic Qualified Code(s): J96.21 - Acute and chronic respiratory failure with hypoxia; J96.22 - Acute and chronic respiratory failure with hypercapnia
[2024-02-02] MEDS ORDERED: acetaZOLAMIDE 250 MG TAB ONE (08:20)
[2024-02-02] MEDS ORDERED: SMZ./TMP. 800/160 MG TABLET ONE ×2 (08:21→20:59)
[2024-02-02] MEDS ORDERED: INSULIN 70/30 100 UNITS/ML SQ ONE ×2 (08:21→08:28)
[2024-02-02] MEDS: INSULIN 70/30 100 UNITS/ML SQ SCH (08:24)
--- NOTE | 2024-02-02 08:42 | RAD REPORT ---
EXAM DESCRIPTION: [facility] Single View02/02/2024 6:37 am CLINICAL HISTORY: Respiratory failure COMPARISON: Abdomen 1 View ([facility]) dated 02/01/2024; Chest Single View dated 02/01/2024; Chest Single Vi ew dated 01/31/2024; Chest Single View dated 01/30/2024 TECHNIQUE: Portable AP view of the chest. FINDINGS: The lungs show stable patchy bilateral airspace opacities with prominent central vascular markings. Endotracheal tube and enteric tube unchanged in position. No pneumothorax or effusion. The cardiomediastinal contours are unremarkable. IMPRESSION: Stable bilateral patchy airspace opacities, which may reflect pulmonary edema, ARDS, or pneumonia.
--- NOTE | 2024-02-02 15:14 | P.PN ---
Subjective Date of Service: 02/02/24 Chief Complaint: Respiratory failure No changes from yesterday. Patient tolerated CPAP with a pressure support of 25 over 45 minutes. Blood sugar readings are elevated. Patient is sedated. No recorded fever. Physical Examination - Vital Signs Temperature: 98.2 F Blood Pressure: 116/65 Pulse: 78 Respirations: 19 Pulse Ox (%): 93 Assessment And Plan - Plan Physical Exam: GEN: sedated on vent, NAD HEENT: Sclera anicteric, ET tube and NG tube in place. CV: Regular rate and rhythm, 1+ bilateral lower extremity edema Pulm: on mechanical engineering technologist ventilation, diminished at bases b/l, mild bibasilar crackles. ABD: Soft, nontender, nondistended Neuro: intubated/sedated Skin: Lichenification of patches of skin-bilateral medial thigh. Goldman in place OGT in place vitals reviewed Problem List: Acute on chronic hypercapnic and hypoxic respiratory failure secondary to acute COPD exacerbation / obesity hypoventilation syndrome Bacterial pneumonia UTI, E. coli Esbl Acute on chronic diastolic CHF IDDM2 with hyperglycemia Morbid obesity constipation Acute on chronic hypercapnic/hypoxic respiratory failure secondary to Pneumonia / acute COPD exacerbation / obesity hypoventilation syndrome acute on chronic COPD (~3L home O2) Intubated in ED given worsening respiratory acidosis/hypercapnic respiratory failure despite BiPAP CXR (01/23): extensive bilateral pulmonary opacities R > L. pneumonia vs pulm edema. Unable to obtain CT to further differentiate edema vs pneumonia given body habitus Difficult weaning vent. Patient tolerated SIMV today. repeat CXR (01/28): slight worsening in right basilar consolidation ENT consulted to evaluate for tracheostomy. ENT recommended weaning trials for now. Dr. Mcintyre, Pulmonology/pharmacy billing adjudicator is following. Impending tracheostomy. ET tube day 9 Continue duonebs, diamox Blood cx (01/23): NGTD sputum cx (01/24): MRSA only sensitive to vanc urine cx: E. Coli ESBL Status post Levaquin, switched to vancomycin and Merrem. Continue IV vancomycin and Merrem for pneumonia. Trial of glycopyrrolate for excessive tracheal secretion. UTI, E. coli Esbl urinalysis in ED with 75 LE, 20-50 WBC urine cx (01/23): E. coli Esbl patient intubated/sedated Continue merrem / vanc (01/26) Acute on chronic diastolic CHF responded well to lasix and then switched to Diamox due to metabolic alkalosis. Monitor intake and output. Fluid restriction. Continue spironolactone and Diamox. IDDM2 with hyperglycemia Accu-Checks q6h, SSI NPH insulin titrated to 90 units a.m. Lantus insulin titrated to 90 units at bedtime Morbid obesity Once alert/extubated will need to discuss lifestyle changes/weight loss options VTE: Lovenox Code: Full Dispo: [facility] pending vent weaning and extubation.
[2024-02-02] MEDS ORDERED: GLYCOPYRROLATE 0.2 MG/ML SYR IV PRN (15:15)
--- NOTE | 2024-02-02 15:24 | P.CNS ---
Date of Consult: 02/02/24 Reason for Consult: tracheotomy Chief Complaint: Respiratory failure History of Present Illness: The patient was admitted on January 23 through the emergency room with respiratory acidosis. The patient is a 48-year-old with a history of chronic hypercapnia, hypoxic respiratory failure, morbid obesity, hypoventilation syndrome, COPD, hypertension, GERD, depression, insulin-dependent diabetes, chronic systolic CHF who was brought from her residence at [facility] with complaints of shortness of breath and hypoxia. She wears 3 L of oxygen nasal cannula at home and is typically noncompliant with her CPAP. On arrival in the emergency room she was found to be anemic, hyperglycemic with lactic acidosis and an initial ABG with a PSH of 7.23 and a pCO2 of 98. She was started on BiPAP but developed worsening acidosis and hypercapnia and was sub sequently intubated by the emergency room and admitted to the ICU for acute on chronic respiratory failure. Her chest x-ray showed extensive bilateral pulmonary opacities which was worse on the right medial lung base with concern for pneumonia versus pulmonary edema. A tracheostomy consult was initially entered on Monday. I was notified late Monday evening of the consult and deferred consultation until Monday. A chart review on Monday was performed but the patient's surrogate medical decision maker was not apparent. I spoke to the nurse who was not able to confirm the identity of the surrogate medical decision maker. I consulted case management to aid in identifying the appropriate person to discuss the risks benefits and alternatives to tracheostomy. On Monday, I was notified that the patient's father is considered her surrogate medical decision maker and provided with his name and phone number. However, on additional chart review it was noted that the patient's oxygen requ irements had increased to 80% and it was felt that tracheostomy would be ill- advised in the setting of her very high oxygen requirements. During tracheostomy, patients typically need to be able to withstand at least 30 to 60 seconds of apnea with release of all retained PEEP during transition from endotracheal intubation to positioning and connection of the tracheostomy tube. I was concerned that with a high oxygen requirement and poor chronic lung function she would be unable to tolerate surgery safely. On , I examined the patient in the hospital and noted that her oxygen requirement was decreasing. I was also notified by the nurse that she had tolerated some decreased settings and or brief periods of time with CPAP or spontaneous breathing trials. Allergies adhesive tape Adverse Reaction (Intermediate, Verified 03/26/22 06:12) Nausea/Vomiting codeine Adverse Reaction (Intermediate, Verified 03/26/22 06:12) Nausea/Vomiting Home Medications: Aspirin [Aspirin EC 81 MG] 81 mg PO DAILY 03/26/22 Atorvastatin Calcium 40 mg PO BEDTIME 03/26/22 Benztropine Mesylate 1 mg PO Q12H 03/26/22 Docusate [Colace Cap*] 100 mg PO BID 03/26/22 Ergocalciferol (Vitamin D2) [Vitamin D2] 50,000 unit PO Q7D 03/26/22 Fexofenadine HCl [Jeri Allergy] 180 mg PO DAILY 03/26/22 Folic Acid 0.4 mg PO DAILY 03/26/22 Gabapentin 300 mg PO TID 03/26/22 Metformin HCl [Glucophage*] 500 mg PO BID 03/26/22 Calcium Carbonate [Tums Regular*] 500 mg PO BID 03/15/23 Sertraline [Zoloft*] 100 mg PO DAILY 03/15/23 Albuterol Neb [Proventil 0.083% Neb Soln] 2.5 mg NEB [id number] amp 03/18/23 Insulin -Regular Human [Novolin -R*] See Protocol SQ ACHS ml 03/18/23 Insulin Glargine,Hum.rec.anlog [Insulin Glargine] 52 units SQ BEDTIME 08/15/23 Potassium Chloride [K-Tab ER] 20 meq PO DAILY 08/15/23 Arformoterol Tartrate [Brovana] 15 mcg NEB BIDRESP vial.neb 08/16/23 Spironolactone [Aldactone*] 25 mg PO BID tab 08/16/23 acetaZOLAMIDE [Diamox*] 250 mg PO BID #60 tab 08/16/23 Ammonium Lactate 1 appl TOP BID 08/19/23 Furosemide [Lasix*] 80 mg PO DAILY 01/24/24 Nitroglycerin 0.4 mg SL Q5M PRN MDD 3 01/24/24 Ondansetron [Zofran] 4 mg PO Q8H PRN 01/24/24 - Past Medical/Surgical History Diabetic: Yes -: COPD -: DMII -: morbid obesity -: Asthma -: CHF -: Chronic pain -: laporoscopic tubal ligation Psychosocial/ Personal History: Patient is resident of [facility] - Family History Father Medical History: Heart disease, Diabetes Mother Medical History: Heart disease, Diabetes - Social History Smoking Status: Unknown if ever smoked Alcohol use: No CD- Drugs: No Caffeine use: Yes Place of Residence: [facility] Review of Systems is unable to be obtained Physical Examination Temp Pulse Resp BP Pulse Ox 98.2 F 78 19 116/65 93 02/02/24 15:15 02/02/24 15:15 02/02/24 15:15 02/02/24 15:15 02/02/24 15:15 Other Physical/Emotional Findings: Intubated and on mechanical ventilation with morbid obesity. At the time of my visit the patient was undergoing x-ray for placement/repositioning of her NG tube and further exam was deferred The patient's laboratory studies during her hospitalization are reviewed. Over the last 24 hours, her blood glucose appears to be better controlled. Her leukocytosis is resolving. Imagings Data: The patient's serial x-rays are reviewed. The patient was unable to undergo CT of the chest during the early part of this hospitalization due to body habitus. - Problems (1) Respiratory failure with hypoxia and hypercapnia Current Visit: No Status: Acute Qualifiers: Chronicity: acute on chronic Qualified Code(s): J96.21 - Acute and chronic respiratory failure with hypoxia; J96.22 - Acute and chronic respiratory failure with hypercapnia Conclusions/Impression: Overall, this patient is at very high risk for complications during and following tracheostomy given her body habitus. Risks include an overall increased difficulty of surgery due to the distance from the patient's shoulder to her neck which results in an efficient posture by the surgeon at the time of surgery. Additional complexity is typical based on the thickness of the subcutaneous fat and the distance between the skin and the trachea. Patients are also at an increased risk for skin or wound complications around the tracheostomy site due to redundant soft tissues. Finally, in cases of inadvertent decannulation, replacement of the tracheostomy tube is more difficult than in someone with a normal BMI. Care coordination was performed with the anesthesia service and surgical services to confirm that the appropriate size tracheostomy tube including a proximal extended length size 6 was available. Given the patient's improving respiratory status over the last 48 hours, I recommend we defer tracheostomy and reassess the patient's respiratory status in 72 hours. If she continues to improve to the point where extubation is feasible, this would be the preferred approach. If she is unable to be extubated based on her medical condition or if she requires early reintubation then we can plan to proceed with tracheostomy next week. If the patient does require tracheostomy, I would encourage the case management team to confer with her living facility to confirm that she can return with an in-place tracheostomy tube.
[2024-02-02] MEDS ORDERED: INSULIN GLARGINE 100 UNIT/ML SQ ONE (20:46)
[2024-02-03] MEDS ORDERED: Meropenem 1000 MG/VIAL IV ONE ×3 (00:21→17:01)
[2024-02-03] MEDS ORDERED: INSULIN REGULAR (HUMAN) 100 UNIT/ML ONE ×3 (00:21→12:01)
[2024-02-03] MEDS ORDERED: NA CHLORIDE 0.9% 100 ML ONE ×3 (00:22→17:02)
[2024-02-03] MEDS ORDERED: FENTANYL CITR 100 MCG/2 ML ONE (02:04)
[2024-02-03 05:12] LABS: Absolute Basophils 0.4 K/uL (0-0.5); Absolute Eosinophils 0.7 K/uL (0-0.5); Absolute Monocytes 0.6 K/uL (0.1-1.3); Absolute Neutrophil 5.6 K/uL (1.8-8.0); Basophils % 4.1 % (0-1.3); Eosinophils % 7.7 % (0-4.4); Hematocrit 27.9 % (36.0-45.0); Hemoglobin 8.6 g/dL (12.0-15.0); Lymphocytes % 21.8 % (15.3-44.8); MCH 30.4 pg (27.0-35.0); MCHC 30.8 g/dL (32.0-36.0); MCV 98.6 fL (80-100); MPV 9.2 fL (7.6-11.3); Monocytes % 6.9 % (3.3-12.3); Neutrophils % 59.5 % (41.7-73.7); Nucleated Red Blood Cells % 0.2 % (0-0); Platelets 430 thou/uL (152-406); RBC Red Blood Cell Count 2.83 M/uL (3.86-4.86); Red Cell Distribution Width 19.2 % (12.1-15.2)
[2024-02-03 05:25] LABS: Anion Gap 5.6 mEq/L (5.0-15.0); Potassium 3.6 mEq/L (3.5-5.1)
[2024-02-03] MEDS: POTASSIUM 25 MEQ EFFERV TAB PO ONE (05:46)
[2024-02-03] MEDS: VITAL AF 1,000 ML BOT RTH SCH (06:35)
[2024-02-03] MEDS ORDERED: ARFORMOTEROL TARTRATE 15 MCG/2 ML VIAL.NEB ONE ×2 (07:40→19:30)
[2024-02-03 07:55] LABS: Band Neutrophils 2 % (0-1); Blood Morphology Comment NOT SEEN (NOT SEEN); Differential Total Cells Count 100; Eosinophils 6 % (0-3); Lymphocytes 24 % (15-42); Nucleated Red Blood Cells 6 /100WBC; Platelet Estimate ADEQ; Segmented Neutrophils 68 % (40-80)
[2024-02-03] MEDS ORDERED: SMZ./TMP. 800/160 MG TABLET ONE ×2 (08:31→20:12)
[2024-02-03] MEDS ORDERED: acetaZOLAMIDE 250 MG TAB ONE (08:31)
[2024-02-03] MEDS ORDERED: INSULIN 70/30 100 UNITS/ML SQ ONE (08:33)
--- NOTE | 2024-02-03 09:43 | P.PN ---
Subjective Date of Service: 02/03/24 Chief Complaint: Respiratory failure Patient is doing better tolerating spontaneous breathing trial on pressure support alert responsive cooperative hemodynamically stable Review of Systems is unable to be obtained Physical Examination - Vital Signs Temperature: 99.2 F Blood Pressure: 139/73 Pulse: 94 Respirations: 23 Pulse Ox (%): 91 - Physical Exam General: Alert, Cooperative Respiratory: Clear to auscultation bilaterally, Diminished Cardiovascular: No edema, Regular rate/rhythm Other Physical/Emotional Findings: Intubated and on mechanical ventilation with morbid obesity. At the time of my visit the patient was undergoing x-ray for placement/repositioning of her NG tube and further exam was deferred Assessment And Plan - Current Problems (Diagnosis) (1) Respiratory failure with hypoxia and hypercapnia Current Visit: No Status: Acute Plan: Respiratory failure patient is doing better plan to extubate labs reviewed mild hypernatremia blood sugars are still elevated vital signs stable extubate continue with BiPAP Qualifiers: Chronicity: acute on chronic Qualified Code(s): J96.21 - Acute and chronic respiratory failure with hypoxia; J96.22 - Acute and chronic respiratory failure with hypercapnia
--- NOTE | 2024-02-03 12:32 | P.PN ---
Subjective Date of Service: 02/03/24 Chief Complaint: Respiratory failure Patient tolerated CPAP with a pressure with a pressure support of 10 but FiO2 of 60%. She was awake during my interaction today. No recorded fever. Physical Examination - Vital Signs Temperature: 99.2 F Blood Pressure: 139/73 Pulse: 94 Respirations: 23 Pulse Ox (%): 91 - Physical Exam Other Physical/Emotional Findings: Intubated and on mechanical ventilation with morbid obesity. At the time of my visit the patient was undergoing x-ray for placement/repositioning of her NG tube and further exam was deferred Assessment And Plan - Plan Physical Exam: GEN: NAD. HEENT: Sclera anicteric, ET tube and OG tube in place. CV: Regular rate and rhythm, 1+ bilateral lower extremity edema Pulm: Diminished at bases b/l, mild bibasilar crackles. ABD: Soft, nontender, nondistended Neuro: intubated/sedated Skin: Lichenification of patches of skin-bilateral medial thigh. Ogldman in place OGT in place vitals reviewed Problem List: Acute on chronic hypercapnic and hypoxic respiratory failure secondary to acute COPD exacerbation / obesity hypoventilation syndrome Bacterial pneumonia UTI, E. coli Esbl Acute on chronic diastolic CHF IDDM2 with hyperglycemia Morbid obesity constipation Acute on chronic hypercapnic/hypoxic respiratory failure secondary to Pneumonia / acute COPD exacerbation / obesity hypoventilation syndrome acute on chronic COPD (~3L home O2) Intubated in ED given worsening respiratory acidosis/hypercapnic respiratory failure despite BiPAP CXR (01/23): extensive bilateral pulmonary opacities R > L. pneumonia vs pulm edema. Unable to obtain CT to further differentiate edema vs pneumonia given body habitus Difficult weaning vent. Patient tolerated SIMV and CPAP. She tolerated lower pressure support today. repeat CXR (01/28): slight worsening in right basilar consolidation ENT consulted to evaluate for tracheostomy. ENT recommended weaning trials for now. Dr. Mcintyre, Pulmonology/straw hat presser is following. Impending tracheostomy. ET tube day 10. Continue weaning trials and hopefully extubate. Continue duonebs, diamox Blood cx (01/23): NGTD sputum cx (01/24): MRSA only sensitive to vanc urine cx: E. Coli ESBL Status post Levaquin, switched to vancomycin and Merrem. Continue IV vancomycin and Merrem for pneumonia. UTI, E. coli Esbl urinalysis in ED with 75 LE, 20-50 WBC urine cx (01/23): E. coli Esbl patient intubated/sedated Continue merrem / vanc (01/26) Acute on chronic diastolic CHF responded well to lasix and then switched to Diamox due to metabolic alkalosis. Patient with persistently elevated bicarb. Continue Diamox. Monitor intake and output. Fluid restriction. Continue spironolactone. IDDM2 with hyperglycemia Accu-Checks q6h, SSI. Blood sugar readings improved with the current insulin regimen. NPH insulin titrated to 90 units a.m. Lantus insulin titrated to 90 units at bedtime Morbid obesity Once alert/extubated will need to discuss lifestyle changes/weight loss options VTE: Lovenox Code: Full Dispo: [facility] pending vent weaning and extubation.
[2024-02-04] MEDS ORDERED: NA CHLORIDE 0.9% 100 ML ONE ×4 (00:10→23:20)
[2024-02-04] MEDS ORDERED: Meropenem 1000 MG/VIAL IV ONE ×4 (00:10→23:20)
[2024-02-04 04:46] LABS: Absolute Eosinophils 0.6 K/uL (0-0.5); Absolute Monocytes 0.5 K/uL (0.1-1.3); Absolute Neutrophil 5.3 K/uL (1.8-8.0); Basophils % 0.5 % (0-1.3); Eosinophils % 7.4 % (0-4.4); Hematocrit 28.6 % (36.0-45.0); Hemoglobin 8.5 g/dL (12.0-15.0); Lymphocytes % 23.9 % (15.3-44.8); MCH 29.2 pg (27.0-35.0); MCHC 29.5 g/dL (32.0-36.0); MCV 98.8 fL (80-100); MPV 9.1 fL (7.6-11.3); Neutrophils % 62.2 % (41.7-73.7); Nucleated Red Blood Cells % 0.1 % (0-0); Platelets 413 thou/uL (152-406); Red Cell Distribution Width 18.7 % (12.1-15.2)
[2024-02-04 05:00] LABS: Anion Gap 4.5 mEq/L (5.0-15.0); Potassium 3.5 mEq/L (3.5-5.1)
[2024-02-04] MEDS: POTASSIUM CL SA 10 MEQ TAB PO ONE (06:16)
[2024-02-04] MEDS ORDERED: ARFORMOTEROL TARTRATE 15 MCG/2 ML VIAL.NEB ONE ×2 (07:09→20:01)
[2024-02-04] MEDS ORDERED: acetaZOLAMIDE 250 MG TAB ONE (08:21)
[2024-02-04] MEDS ORDERED: SMZ./TMP. 800/160 MG TABLET ONE ×2 (08:21→19:42)
[2024-02-04] MEDS: ONDANSETRON 4 MG/2 ML VIAL IV PRN (08:42)
--- NOTE | 2024-02-04 11:53 | P.PN ---
Subjective Date of Service: 02/04/24 Chief Complaint: Respiratory failure Patient extubated to CPAP. She is tolerating CPAP with good tidal volumes and stable oxygen saturation. She is awake and interactive. Physical Examination - Vital Signs Temperature: 97.8 F Blood Pressure: 109/58 Pulse: 85 Respirations: 22 Pulse Ox (%): 98 - Physical Exam Other Physical/Emotional Findings: Intubated and on mechanical ventilation with morbid obesity. At the time of my visit the patient was undergoing x-ray for placement/repositioning of her NG tube and further exam was deferred Assessment And Plan - Plan Physical Exam: GEN: NAD. HEENT: BIPAP in place. CV: Regular rate and rhythm, 1+ bilateral lower extremity edema Pulm: Diminished at bases b/l, mild bibasilar crackles. ABD: Soft, nontender, nondistended Neuro: Awake, interactive, moves all upper extremities Skin: Lichenification of patches of skin-bilateral medial thigh. Goldman in place vitals reviewed Problem List: Acute on chronic hypercapnic and hypoxic respiratory failure secondary to acute COPD exacerbation / obesity hypoventilation syndrome Bacterial pneumonia UTI, E. coli Esbl Acute on chronic diastolic CHF IDDM2 with hyperglycemia Morbid obesity constipation Acute on chronic hypercapnic/hypoxic respiratory failure secondary to Pneumonia / acute COPD exacerbation / obesity hypoventilation syndrome acute on chronic COPD (~3L home O2) Intubated in ED given worsening respiratory acidosis/hypercapnic respiratory failure despite BiPAP CXR (01/23): extensive bilateral pulmonary opacities R > L. pneumonia vs pulm edema. Repeat CXR (01/28): slight worsening in right basilar consolidation ENT consulted to evaluate for tracheostomy. ENT recommended weaning trials. Patient extubated to CPAP 02/03 Dr. Mcintyre, Pulmonology/automotive diagnostic technician is following. Continue duonebs, diamox Blood cx (01/23): NGTD sputum cx (01/24): MRSA only sensitive to vanc urine cx: E. Coli ESBL Status post Levaquin, switched to vancomycin and Merrem. Continue IV vancomycin and Merrem for pneumonia. UTI, E. coli Esbl urinalysis in ED with 75 LE, 20-50 WBC urine cx (01/23): E. coli Esbl patient intubated/sedated Continue merrem / vanc (01/26) She completed antibiotics for UTI. Acute on chronic diastolic CHF responded well to lasix and then switched to Diamox due to metabolic alkalosis. Patient with persistently elevated bicarb. Continue Diamox. Monitor intake and output. Fluid restriction. Continue spironolactone. IDDM2 with hyperglycemia Accu-Checks q6h, SSI. Blood sugar readings improved with the current insulin regimen. NPH insulin titrated to 90 units a.m. Lantus insulin titrated to 90 units at bedtime. Scale down basal insulin depending on oral intake. Morbid obesity Weight loss advised. VTE: Lovenox Code: Full Dispo: [facility] once clinically stable.
[2024-02-05 05:04] LABS: Absolute Eosinophils 0.6 K/uL (0-0.5); Absolute Lymphocytes (CBC) 1.6 K/uL (0.7-4.9); Absolute Monocytes 0.4 K/uL (0.1-1.3); Absolute Neutrophil 6.9 K/uL (1.8-8.0); Basophils % 0.3 % (0-1.3); Eosinophils % 5.8 % (0-4.4); Hematocrit 29.4 % (36.0-45.0); Hemoglobin 8.9 g/dL (12.0-15.0); Lymphocytes % 16.8 % (15.3-44.8); MCH 29.9 pg (27.0-35.0); MCHC 30.3 g/dL (32.0-36.0); MCV 98.7 fL (80-100); MPV 9.2 fL (7.6-11.3); Monocytes % 4.7 % (3.3-12.3); Neutrophils % 72.4 % (41.7-73.7); Nucleated Red Blood Cells % 0.1 % (0-0); Platelets 387 thou/uL (152-406); RBC Red Blood Cell Count 2.98 M/uL (3.86-4.86); Red Cell Distribution Width 19.4 % (12.1-15.2)
[2024-02-05 05:30] LABS: Anion Gap 4.9 mEq/L (5.0-15.0); Potassium 3.9 mEq/L (3.5-5.1)
[2024-02-05] MEDS ORDERED: INSULIN REGULAR (HUMAN) 100 UNIT/ML ONE ×3 (05:56→17:44)
[2024-02-05] MEDS ORDERED: ARFORMOTEROL TARTRATE 15 MCG/2 ML VIAL.NEB ONE ×2 (07:10→19:45)
[2024-02-05] MEDS ORDERED: Meropenem 1000 MG/VIAL IV ONE ×2 (08:03→17:03)
[2024-02-05] MEDS ORDERED: SMZ./TMP. 800/160 MG TABLET ONE (08:03)
[2024-02-05] MEDS ORDERED: acetaZOLAMIDE 250 MG TAB ONE (08:03)
[2024-02-05] MEDS ORDERED: NA CHLORIDE 0.9% 100 ML ONE ×2 (08:04→17:04)
--- NOTE | 2024-02-05 10:44 | P.PN ---
Subjective Date of Service: 02/05/24 Chief Complaint: Respiratory failure Patient extubated to CPAP 02/03 She is awake and interactive and currently tolerating high flow oxygen. She has tolerated diet, no problem with swallowing. Physical Examination - Vital Signs Temperature: 97.5 F Blood Pressure: 101/54 Pulse: 87 Respirations: 20 Pulse Ox (%): 95 - Physical Exam Other Physical/Emotional Findings: Intubated and on mechanical ventilation with morbid obesity. At the time of my visit the patient was undergoing x-ray for placement/repositioning of her NG tube and further exam was deferred Assessment And Plan - Plan Physical Exam: GEN: NAD. HEENT: HFNC. CV: Regular rate and rhythm, 1+ bilateral lower extremity edema Pulm: Diminished at bases b/l, mild bibasilar crackles. ABD: Soft, nontender, nondistended Neuro: Awake, interactive, moves all upper extremities Goldman in place vitals reviewed Problem List: Acute on chronic hypercapnic and hypoxic respiratory failure secondary to acute COPD exacerbation / obesity hypoventilation syndrome Bacterial pneumonia UTI, E. coli Esbl Acute on chronic diastolic CHF IDDM2 with hyperglycemia Morbid obesity constipation Acute on chronic hypercapnic/hypoxic respiratory failure secondary to Pneumonia / acute COPD exacerbation / obesity hypoventilation syndrome acute on chronic COPD (~3L home O2) Intubated in ED given worsening respiratory acidosis/hypercapnic respiratory failure despite BiPAP CXR (01/23): extensive bilateral pulmonary opacities R > L. pneumonia vs pulm edema. Repeat CXR (01/28): slight worsening in right basilar consolidation ENT consulted to evaluate for tracheostomy. ENT recommended weaning trials. Patient extubated to CPAP 02/03 Dr. Mcintyre, Pulmonology is following. Continue duonebs, diamox Blood cx (01/23): NGTD sputum cx (01/24): MRSA only sensitive to vanc urine cx: E. Coli ESBL Status post Levaquin, switched to vancomycin and Merrem. Continue IV vancomycin and Merrem for pneumonia. Infectious disease to follow for duration of antibiotics. UTI, E. coli Esbl urinalysis in ED with 75 LE, 20-50 WBC urine cx (01/23): E. coli Esbl patient intubated/sedated Continue merrem / vanc (01/26) She completed antibiotics for UTI. Acute on chronic diastolic CHF responded well to lasix and then switched to Diamox due to metabolic alkalosis. Patient with persistently elevated bicarb. Continue Diamox. Monitor intake and output. Fluid restriction. Continue spironolactone. IDDM2 with hyperglycemia Accu-Checks q6h, SSI. Blood sugar readings improved with the current insulin regimen. NPH insulin titrated to 90 units a.m. Lantus insulin titrated to 90 units at bedtime. Scale down basal insulin depending on oral intake. Morbid obesity Weight loss advised. VTE: Lovenox Code: Full Dispo: [facility] once patient is tolerating oxygen by nasal cannula.
--- NOTE | 2024-02-05 10:48 | P.PN ---
Subjective Date of Service: 02/05/24 Chief Complaint: Respiratory failure Patient extubated to CPAP 02/03 She is awake and interactive and currently tolerating high flow oxygen. She has tolerated diet, no problem with swallowing. Physical Examination - Vital Signs Temperature: 97.5 F Blood Pressure: 101/54 Pulse: 87 Respirations: 20 Pulse Ox (%): 95 Assessment And Plan - Plan Physical Exam: GEN: NAD. HEENT: HFNC. CV: Regular rate and rhythm, 1+ bilateral lower extremity edema Pulm: Diminished at bases b/l, mild bibasilar crackles. ABD: Soft, nontender, nondistended Neuro: Awake, interactive, moves all upper extremities Goldman in place vitals reviewed Problem List: Acute on chronic hypercapnic and hypoxic respiratory failure secondary to acute COPD exacerbation / obesity hypoventilation syndrome Bacterial pneumonia UTI, E. coli Esbl Acute on chronic diastolic CHF IDDM2 with hyperglycemia Morbid obesity constipation Acute on chronic hypercapnic/hypoxic respiratory failure secondary to Pneumonia / acute COPD exacerbation / obesity hypoventilation syndrome acute on chronic COPD (~3L home O2) Intubated in ED given worsening respiratory acidosis/hypercapnic respiratory failure despite BiPAP CXR (01/23): extensive bilateral pulmonary opacities R > L. pneumonia vs pulm edema. Repeat CXR (01/28): slight worsening in right basilar consolidation ENT consulted to evaluate for tracheostomy. ENT recommended weaning trials. Patient extubated to CPAP 02/03 Dr. Mcintyre, Pulmonology is following. Continue duonebs, diamox Blood cx (01/23): NGTD sputum cx (01/24): MRSA only sensitive to vanc urine cx: E. Coli ESBL Status post Levaquin, switched to vancomycin and Merrem. Continue IV Merrem for pneumonia. Infectious disease to follow for duration of antibiotics. Pulmonary change IV vancomycin to oral Bactrim UTI, E. coli Esbl urinalysis in ED with 75 LE, 20-50 WBC urine cx (01/23): E. coli Esbl patient intubated/sedated Continue merrem / vanc (01/26) She completed antibiotics for UTI. Acute on chronic diastolic CHF responded well to lasix and then switched to Diamox due to metabolic alkalosis. Patient with persistently elevated bicarb. Continue Diamox. Monitor intake and output. Fluid restriction. Continue spironolactone. IDDM2 with hyperglycemia Accu-Checks q6h, SSI. Blood sugar readings improved with the current insulin regimen. NPH insulin titrated to 90 units a.m. Lantus insulin titrated to 90 units at bedtime. Scale down basal insulin depending on oral intake. Morbid obesity Weight loss advised. VTE: Lovenox Code: Full Dispo: [facility] once patient is tolerating oxygen by nasal cannula.
[2024-02-06] MEDS ORDERED: Meropenem 1000 MG/VIAL IV ONE ×3 (00:52→16:42)
[2024-02-06] MEDS ORDERED: NA CHLORIDE 0.9% 100 ML ONE ×3 (00:53→16:42)
[2024-02-06] MEDS ORDERED: INSULIN REGULAR (HUMAN) 100 UNIT/ML ONE ×4 (00:53→16:42)
--- NOTE | 2024-02-06 06:55 | P.PN ---
Date of Service: 02/06/24 Subjective: feels she is making improvements each day breathing slightly better no new/worsening symptoms, tolerating diet; no difficulty swallowing +BM yesterday ROS: 10 point ROS as noted above, otherwise negative Physical Exam: GEN: NAD, awake, AOx3 HEENT: Normal conjunctiva, sclera anicteric CV: Regular rate and rhythm, trace bilateral lower extremity edema Pulm: on [place], diminished at bases b/l ABD: Soft, nontender, nondistended Neuro: Awake, interactive, normal affect Goldman in place vitals reviewed Problem List: Acute on chronic hypercapnic/hypoxic respiratory failure secondary to Pneumonia / acute COPD exacerbation / obesity hypoventilation syndrome acute on chronic COPD (~3L home O2) UTI, E. coli Esbl Acute on chronic diastolic CHF IDDM2 with hyperglycemia Morbid obesity constipation Acute on chronic hypercapnic/hypoxic respiratory failure secondary to Pneumonia / acute COPD exacerbation / obesity hypoventilation syndrome acute on chronic COPD (~3L home O2) Reported worsening dyspnea, [facility] Pt generally noncompliant with CPAP. Typically wears 3L o2 CXR (01/23): extensive bilateral pulmonary opacities R > L. pneumonia vs pulm edema. repeat CXR (02/05): mildly progressive central interstitial prominence, otherwise stable b/l patchy airspace opacities. worsening pulm edema vs central congestion Unable to obtain CT to further differentiate edema vs pneumonia given body habitus Intubated in ED given worsening respiratory acidosis/hypercapnic respiratory failure despite BiPAP Extubated 02/03; tolerating BiPAP/hiflow Dr. Mcintyre, Pulmonology following Continue duonebs, diamox Blood cx (01/23): no growth urine cx (01/23): E. Coli ESBL sputum cx (01/29): MRSA, Acinetobacter dhiraj/haem previously on levaquin (01/24-01/25), vanc (01/25-02/01) currently on merrem (01/26-) and PO bactrim (01/31-) afebrile, leukocytosis resolved UTI, E. coli Esbl urine cx (01/23): E. coli Esbl s/p levaquin (01/25-01/25), vanc (01/25-02/01) currently on IV merrem (01/26-) and PO Bactrim (01/31-) plan to complete 2 weeks total of antibiotics - merrem and vanc/bactrim Acute on chronic diastolic CHF responded well to lasix and then switched to Diamox due to metabolic alkalosis. Patient with persistently elevated bicarb. Continue diuresis with PO Diamox past echo from 08/21/23 with 77%EF but poor windows/difficult evaluate with body habitus IDDM2 with hyperglycemia Accu-Checks q6h, SSI hyperglycemia secondary to TPN now that she is off TPN, glc much better controlled, has not received long acting insulin in a few days reviewed sliding scale doses and glc levels semglee 10u at bedtime 02/05 Morbid obesity Weight loss advised. VTE: Lovenox Code: Full Dispo: back to [facility] Pending able to tolerate oxygen by [place] ~3-4 days
[2024-02-06] MEDS ORDERED: ARFORMOTEROL TARTRATE 15 MCG/2 ML VIAL.NEB ONE ×2 (07:47→19:55)
[2024-02-06] MEDS ORDERED: acetaZOLAMIDE 250 MG TAB ONE (07:53)
[2024-02-06] MEDS ORDERED: SMZ./TMP. 800/160 MG TABLET ONE ×2 (07:53→19:43)
--- NOTE | 2024-02-06 08:08 | RAD REPORT ---
EXAM DESCRIPTION: Noemit Single View02/06/2024 6:40 am CLINICAL HISTORY: Respiratory failure. Abnormal radiograph. F/u opacities COMPARISON: Chest Single View dated 02/02/2024; Abdomen 1 View (KUB) dated 02/01/2024; Chest Single Vi ew dated 02/01/2024; Chest Single View dated 01/31/2024 TECHNIQUE: Portable AP view of the chest. FINDINGS: Interval extubation and removal of enteric tube. Right arm PICC unchanged in position. Pat niharika bilateral airspace opacities with central and basal predominance are stable. Mildly progressive c entral interstitial prominence. No pneumothorax or sizable effusion. The cardiomediastinal contours are unchanged. IMPRESSION: Central interstitial prominence is mildly progressive, with otherwise stable bilateral p atchy airspace opacities. Findings may reflect worsening pulmonary edema or central congestion.
[2024-02-06] MEDS ORDERED: ONDANSETRON 4 MG/2 ML VIAL ONE (10:49)
--- NOTE | 2024-02-06 11:52 | P.PN ---
Subjective Date of Service: 02/06/24 Chief Complaint: Respiratory failure Patient is 49 years of age was extubated recently and is currently doing well alert responsive communicating requiring BiPAP at night due to desaturation Review of Systems General: Weakness Respiratory: Shortness of Breath Physical Examination - Vital Signs Temperature: 97.2 F Blood Pressure: 107/64 Pulse: 97 Respirations: 19 Pulse Ox (%): 89 - Physical Exam General: Alert, In no apparent distress, Oriented x3 Respiratory: Clear to auscultation bilaterally, Diminished Cardiovascular: No edema, Regular rate/rhythm Other Physical/Emotional Findings: Intubated and on mechanical ventilation with morbid obesity. At the time of my visit the patient was undergoing x-ray for placement/repositioning of her NG tube and further exam was deferred Assessment And Plan - Current Problems (Diagnosis) (1) Respiratory failure with hypoxia and hypercapnia Current Visit: No Status: Acute Plan: Respiratory failure patient is doing well she is alert oriented responsive coope rative signs are stable continue with Bactrim and meropenem for total of 2 weeks patient's white count is normal labs reviewed blood sugars are declining no change in current medication Patient has obesity hypoventilation syndrome and will benefit from a noninvasive ventilator prevent recurrent disease prevent admissions to the hospital patient has chronic hypoxic hypercapnic respiratory failure Qualifiers: Chronicity: acute on chronic Qualified Code(s): J96.21 - Acute and chronic respiratory failure with hypoxia; J96.22 - Acute and chronic respiratory failure with hypercapnia
[2024-02-06] MEDS ORDERED: INSULIN GLARGINE 100 UNIT/ML SQ ONE (20:30)
[2024-02-06] MEDS: INSULIN GLARGINE 100 UNIT/ML SQ SCH (20:35)
[2024-02-07] MEDS ORDERED: Meropenem 1000 MG/VIAL IV ONE ×4 (00:23→23:39)
[2024-02-07] MEDS ORDERED: INSULIN REGULAR (HUMAN) 100 UNIT/ML ONE ×5 (00:24→23:38)
[2024-02-07] MEDS ORDERED: NA CHLORIDE 0.9% 100 ML ONE ×3 (00:24→16:54)
[2024-02-07 05:33] LABS: Absolute Eosinophils 0.4 K/uL (0-0.5); Absolute Lymphocytes (CBC) 1.3 K/uL (0.7-4.9); Absolute Monocytes 0.4 K/uL (0.1-1.3); Absolute Neutrophil 5.9 K/uL (1.8-8.0); Basophils % 0.3 % (0-1.3); Eosinophils % 5.5 % (0-4.4); Hematocrit 28.9 % (36.0-45.0); Hemoglobin 8.9 g/dL (12.0-15.0); Lymphocytes % 16.2 % (15.3-44.8); MCH 29.9 pg (27.0-35.0); MCHC 30.9 g/dL (32.0-36.0); MCV 96.9 fL (80-100); MPV 8.8 fL (7.6-11.3); Monocytes % 4.9 % (3.3-12.3); Neutrophils % 73.1 % (41.7-73.7); Nucleated Red Blood Cells % 0.3 % (0-0); Platelets 358 thou/uL (152-406); RBC Red Blood Cell Count 2.98 M/uL (3.86-4.86); Red Cell Distribution Width 18.6 % (12.1-15.2)
[2024-02-07 05:41] LABS: Anion Gap 2.1 mEq/L (5.0-15.0); Magnesium 2.1 mg/dL (1.6-2.4); Potassium 4.1 mEq/L (3.5-5.1)
[2024-02-07] MEDS ORDERED: SMZ./TMP. 800/160 MG TABLET ONE ×2 (07:38→19:48)
[2024-02-07] MEDS ORDERED: acetaZOLAMIDE 250 MG TAB ONE (07:38)
[2024-02-07] MEDS ORDERED: ENOXAPARIN 40 MG/0.4 ML SQ ONE (07:39)
[2024-02-07] MEDS ORDERED: ONDANSETRON 4 MG/2 ML VIAL ONE (09:17)
[2024-02-07] MEDS ORDERED: ARFORMOTEROL TARTRATE 15 MCG/2 ML VIAL.NEB ONE ×2 (09:46→20:28)
--- NOTE | 2024-02-07 10:01 | P.PN ---
Date of Service: 02/07/24 Subjective: Feeling better today breathing slightly better. Tolerating hiflo on 40L FiO2 60% no new issues overnight afebrile ROS: 10 point ROS as noted above, otherwise negative Physical Exam: GEN: NAD, awake, AOx3, a bit slow to respond but appropriate HEENT: Normal conjunctiva, sclera anicteric CV: Regular rate and rhythm, trace bilateral lower extremity edema Pulm: on Hiflo, diminished at bases b/l ABD: Soft, nontender, nondistended Integumentary: Stage 2 sacral pressure ulcer Neuro: Awake, interactive, normal affect Goldman in place vitals reviewed Problem List: Acute on chronic hypercapnic/hypoxic respiratory failure secondary to Pneumonia / acute COPD exacerbation / obesity hypoventilation syndrome acute on chronic COPD (~3L home O2) UTI, E. coli Esbl Acute on chronic diastolic CHF IDDM2 with hyperglycemia Morbid obesity constipation Stage 2 sacral pressure ulcer Acute on chronic hypercapnic/hypoxic respiratory failure secondary to Pneumonia / acute COPD exacerbation / obesity hypoventilation syndrome acute on chronic COPD (~3L home O2) Reported worsening dyspnea, hypoxia at [facility]. [facility] reports Pt generally noncompliant with CPAP. Typically wears 3L o2 CXR (01/23): extensive bilateral pulmonary opacities R > L. pneumonia vs pulm edema. repeat CXR (02/05): mildly progressive central interstitial prominence, otherwise stable b/l patchy airspace opacities. worsening pulm edema vs central congestion Unable to obtain CT to further differentiate edema vs pneumonia given body habitus Intubated in ED given worsening respiratory acidosis/hypercapnic respiratory failure despite BiPAP Extubated 02/03; tolerating BiPAP/hiflow Dr. Mcintyre, Pulmonology following - started process for home NIV 02/05 Continue duonebs, diamox Blood cx (01/23): no growth urine cx (01/23): E. Coli ESBL sputum cx (01/29): MRSA, Acinetobacter dhiraj/haem previously on levaquin (01/24-01/25), vanc (01/25-02/01) currently on merrem (01/26-02/08) and PO bactrim (01/31-02/08) afebrile, leukocytosis resolved UTI, E. coli Esbl urine cx (01/23): E. coli Esbl s/p levaquin (01/25-01/25), vanc (01/25-02/01) currently on IV merrem (01/26-02/08) and PO Bactrim (01/31-02/08) plan to complete 2 weeks total of antibiotics - merrem and vanc/bactrim Acute on chronic diastolic CHF responded well to lasix and then switched to Diamox due to metabolic alkalosis. Patient with persistently elevated bicarb. Continue diuresis with PO Diamox past echo from 08/21/23 with 77%EF but poor windows/difficult evaluate with body habitus IDDM2 with hyperglycemia Accu-Checks q6h, SSI hyperglycemia secondary to TPN now that she is off TPN, glc much better controlled, has not received long acting insulin in a few days reviewed sliding scale doses and glc levels semglee 10u at bedtime 02/05 Morbid obesity Weight loss advised. Stage 2 sacral pressure ulcer continue local wound care Frequent turning q2h VTE: Lovenox Code: Full Dispo: back to [facility]. ~3-4 days Pending able to tolerate oxygen by [place]
[2024-02-07 16:11] LABS: Arterial Blood Carboxyhemoglob 1.4 % (0-1.5); Blood Gas Oxyhemoglobin 92.6 % (94-97); Blood O2 Saturation 95.1 % (92-98.5)
[2024-02-07] MEDS ORDERED: INSULIN GLARGINE 100 UNIT/ML SQ ONE (20:13)
[2024-02-07] MEDS ORDERED: NA CHLORIDE 0.9% 200 ML ONE (23:39)
[2024-02-08 05:07] LABS: Hematocrit 30.1 % (36.0-45.0); Hemoglobin 9.2 g/dL (12.0-15.0); MCH 29.5 pg (27.0-35.0); MCHC 30.5 g/dL (32.0-36.0); MCV 96.7 fL (80-100); MPV 9.6 fL (7.6-11.3); Platelets 375 thou/uL (152-406); RBC Red Blood Cell Count 3.11 M/uL (3.86-4.86); Red Cell Distribution Width 18.8 % (12.1-15.2)
[2024-02-08 05:28] LABS: Albumin 2.3 g/dL (3.4-5.0); Albumin/Globulin Ratio 0.7 (1.1-1.8); Anion Gap 6.5 mEq/L (5.0-15.0); Bilirubin Total 0.3 mg/dL (0.2-1.0); Globulin 3.5 g/dL (2.3-3.5); Potassium 4.5 mEq/L (3.5-5.1); Protein, Total 5.8 g/dL (6.4-8.2)
[2024-02-08] MEDS ORDERED: INSULIN REGULAR (HUMAN) 100 UNIT/ML ONE ×2 (05:51→10:33)
[2024-02-08] MEDS ORDERED: ARFORMOTEROL TARTRATE 15 MCG/2 ML VIAL.NEB ONE (06:25)
[2024-02-08] MEDS ORDERED: SMZ./TMP. 800/160 MG TABLET ONE (07:09)
[2024-02-08] MEDS ORDERED: acetaZOLAMIDE 250 MG TAB ONE (07:09)
[2024-02-08] MEDS ORDERED: Meropenem 1000 MG/VIAL IV ONE (07:09)
[2024-02-08] MEDS ORDERED: NA CHLORIDE 0.9% 100 ML ONE (07:10)
[2024-02-08] MEDS ORDERED: ENOXAPARIN 40 MG/0.4 ML SQ ONE (07:10)
--- NOTE | 2024-02-08 07:48 | P.PN ---
Date of Service: 02/08/24 Subjective: more somnolent/confused yesterday afternoon per nursing staff subsequently placed on BiPAP after repeat ABG better this morning ROS: 10 point ROS as noted above, otherwise negative Physical Exam: GEN: NAD, awake, AOx3, a bit slow to respond HEENT: Normal conjunctiva, sclera anicteric CV: Regular rate and rhythm, trace bilateral lower extremity edema Pulm: on Hiflo, diminished at bases b/l ABD: Soft, nontender, nondistended Neuro: Awake, interactive, normal affect Goldman in place vitals reviewed Problem List: Acute on chronic hypercapnic/hypoxic respiratory failure secondary to Pneumonia / acute COPD exacerbation / obesity hypoventilation syndrome acute on chronic COPD (~3L home O2) UTI, E. coli Esbl Acute on chronic diastolic CHF IDDM2 with hyperglycemia Morbid obesity constipation Stage 2 sacral pressure ulcer Acute on chronic hypercapnic/hypoxic respiratory failure secondary to Pneumonia / acute COPD exacerbation / obesity hypoventilation syndrome acute on chronic COPD (~3L home O2) Reported worsening dyspnea, hypoxia at [facility]. [facility] reports Pt generally noncompliant with CPAP. Typically wears 3L o2 CXR (01/23): extensive bilateral pulmonary opacities R > L. pneumonia vs pulm edema. repeat CXR (02/05): mildly progressive central interstitial prominence, otherwise stable b/l patchy airspace opacities. worsening pulm edema vs central congestion Repeat CXR (02/07): Stable/unchanged opacities since prior study CXR 02/[address] to further differentiate edema vs pneumonia given body habitus Intubated in ED given worsening respiratory acidosis/hypercapnic respiratory failure despite BiPAP Extubated 02/03; tolerating BiPAP/hiflow Dr. Mcintyre, Pulmonology following - started process for home NIV 02/05 Continue duonebs, diamox Blood cx (01/23): no growth urine cx (01/23): E. Coli ESBL sputum cx (01/29): MRSA, Acinetobacter dhiraj/haem previously on levaquin (01/24-01/25), vanc (01/25-02/01) currently on merrem (01/26-02/08) and PO bactrim (01/31-02/08) afebrile, leukocytosis resolved 02/06 - nursing staff reports patient with increased somnolence / confusion above patients baseline repeat ABG with pH: 7.29, PCO2: 76, HCO3: 36.1 placed on BiPAP pulm recommends bipap as much as possible, to remove for meals UTI, E. coli Esbl urine cx (01/23): E. coli Esbl s/p levaquin (01/25-01/25), vanc (01/25-02/01) currently on IV merrem (01/26-02/08) and PO Bactrim (01/31-02/08) plan to complete 2 weeks total of antibiotics - merrem and vanc/bactrim Acute on chronic diastolic CHF responded well to lasix and then switched to Diamox due to metabolic alkalosis. Patient with persistently elevated bicarb. Continue diuresis with PO Diamox past echo from 08/21/23 with 77%EF but poor windows/difficult evaluate with body habitus IDDM2 with hyperglycemia Accu-Checks q6h, SSI hyperglycemia secondary to TPN now that she is off TPN, glc much better controlled, has not received long acting insulin in a few days reviewed sliding scale doses and glc levels semglee 10u at bedtime 02/05 Morbid obesity Weight loss advised. Stage 2 sacral pressure ulcer continue local wound care Frequent turning q2h VTE: Lovenox Code: Full Dispo: back to [facility]. ~3-4 days Pending able to tolerate oxygen by [place] NIV set up
--- NOTE | 2024-02-08 08:05 | RAD REPORT ---
EXAM DESCRIPTION: RAD - Chest Single View - 02/08/2024 6:00 am CLINICAL HISTORY: f/u opacities/congestion. hypercapnic Chest pain. COMPARISON: Chest Single View dated 02/06/2024; Chest Single View dated 02/02/2024; Abdomen 1 View ([facility]) dated 02/01/2024; Chest Single View dated 02/01/2024 FINDINGS: Portable technique limits examination quality. Extensive bilateral pulmonary opacities are again seen, appearing essentially unchanged since 024 prior study. The heart is moderately enlarged. Right-sided venous catheter has tip in the SVC. IMPRESSION: Stable chest since 02/06/2024.
--- NOTE | 2024-02-08 12:31 | P.PN ---
Subjective Date of Service: 02/08/24 Chief Complaint: Respiratory failure Patient was worse last night experiencing significant desaturation chest x-ray also looks worse Review of Systems General: Weakness Respiratory: Shortness of Breath Physical Examination - Vital Signs Temperature: 97.7 F Blood Pressure: 100/51 Pulse: 90 Respirations: 20 Pulse Ox (%): 92 - Physical Exam General: Alert, Oriented x3, Moderate distress Respiratory: Crackles/rales Cardiovascular: No edema, Regular rate/rhythm, Normal S1 S2 Other Physical/Emotional Findings: Intubated and on mechanical ventilation with morbid obesity. At the time of my visit the patient was undergoing x-ray for placement/repositioning of her NG tube and further exam was deferred Assessment And Plan - Current Problems (Diagnosis) (1) Respiratory failure with hypoxia and hypercapnia Current Visit: No Status: Acute Plan: Respiratory failure patient's x-ray looks worse bilateral infiltrate white count is normal labs reviewed blood sugar is declining renal function is normal patien t is on meropenem and Bactrim the probably acute lung injury chest x-ray appears to be unchanged from 423 overall prognosis is poor hopefully she will get approved for an NIV pressure is low was still try some Lasix and is feeling thirsty drinking all the time trial of spironolactone Qualifiers: Chronicity: acute on chronic Qualified Code(s): J96.21 - Acute and chronic respiratory failure with hypoxia; J96.22 - Acute and chronic respiratory failure with hypercapnia
[2024-02-08] MEDS: SPIRONOLACTONE 25 MG TABLET PO SCH (14:08)
[2024-02-08] MEDS: JUVEN PACKET PO SCH (20:24)
[2024-02-09] MEDS: NA CHLORIDE 0.9% 100 ML ONE (00:20)
[2024-02-09 05:34] LABS: Magnesium 1.9 mg/dL (1.6-2.4)
--- NOTE | 2024-02-09 08:05 | P.PN ---
Date of Service: 02/09/24 Subjective: Feeling a little better today tolerating BiPAP and diet afebrile +BM ROS: 10 point ROS as noted above, otherwise negative Physical Exam: GEN: NAD, awake, AOx3 HEENT: Normal conjunctiva, sclera anicteric CV: Regular rate and rhythm, trace bilateral lower extremity edema Pulm: on BiPAP, diminished at bases b/l ABD: Soft, nontender, nondistended Neuro: Awake, interactive, normal affect Goldman in place vitals reviewed Problem List: Acute on chronic hypercapnic/hypoxic respiratory failure secondary to Pneumonia / acute COPD exacerbation / obesity hypoventilation syndrome acute on chronic COPD (~3L home O2) UTI, E. coli Esbl Acute on chronic diastolic CHF IDDM2 with hyperglycemia Morbid obesity constipation Stage 2 sacral pressure ulcer Acute on chronic hypercapnic/hypoxic respiratory failure secondary to Pneumonia / acute COPD exacerbation / obesity hypoventilation syndrome acute on chronic COPD (~3L home O2) Reported worsening dyspnea, hypoxia at [facility] reports Pt generally noncompliant with CPAP. Typically wears 3L o2 CXR (01/23): extensive bilateral pulmonary opacities R > L. pneumonia vs pulm edema. repeat CXR (02/05): mildly progressive central interstitial prominence, otherwise stable b/l patchy airspace opacities. worsening pulm edema vs central congestion Repeat CXR (02/07): Stable/unchanged opacities since prior study CXR 02/05 repeat CXR (02/08): ordered to f/u opacities Unable to obtain CT to further differentiate edema vs pneumonia given body habitus Intubated in ED given worsening respiratory acidosis/hypercapnic respiratory failure despite BiPAP Extubated 02/03; tolerating BiPAP/hiflow Dr. Mcintyre, Pulmonology following - started process for home NIV 02/05 repeat ABG 02/06 with pH: 7.29, PCO2: 76, HCO3: 36.1. Placed on BiPAP pulm recommends bipap as much as possible, to remove for meals Continue duonebs, diamox Blood cx (01/23): no growth urine cx (01/23): E. Coli ESBL sputum cx (01/29): MRSA, Acinetobacter dhiraj/haem previously on levaquin (01/24-01/25), vanc (01/25-02/01) currently on merrem (01/26-02/08) and PO bactrim (01/31-02/08) Day 14 of 14 afebrile, leukocytosis resolved UTI, E. coli Esbl urine cx (01/23): E. coli Esbl s/p levaquin (01/25-01/25), vanc (01/25-02/01) currently on IV merrem (01/26-02/08) and PO Bactrim (01/31-02/08) Day 14 of 14 of merrem and vanc/bactrim. Acute on chronic diastolic CHF responded well to lasix and then switched to Diamox due to metabolic alkalosis. Patient with persistently elevated bicarb. Continue diuresis with PO Diamox Trial of spironolactone started 02/07 per pulm past echo from 08/21/23 with 77%EF but poor windows/difficult evaluate with body habitus IDDM2 with hyperglycemia Accu-Checks q6h, SSI hyperglycemia secondary to TPN now that she is off TPN, glc much better controlled, has not received long acting insulin in a few days reviewed sliding scale doses and glc levels semglee 10u at bedtime 02/05 increase to 15u 02/08 Morbid obesity Weight loss advised. Stage 2 sacral pressure ulcer continue local wound care Frequent turning q2h VTE: Lovenox Code: Full Dispo: back to [facility]. ~3-4 days Pending able to tolerate oxygen by [place] NIV set up
--- NOTE | 2024-02-09 10:14 | P.PN ---
Subjective Date of Service: 02/09/24 Chief Complaint: Respiratory failure Patient continues to remain hypoxic requiring high concentrations of oxygen also requiring BiPAP at night otherwise patient is alert complaining of shortness of breath Review of Systems General: Weakness Respiratory: Shortness of Breath Physical Examination - Vital Signs Temperature: 97.5 F Blood Pressure: 110/61 Pulse: 80 Respirations: 12 Pulse Ox (%): 91 - Physical Exam General: Alert, Oriented x3 Respiratory: Clear to auscultation bilaterally, Diminished Cardiovascular: Regular rate/rhythm, Normal S1 S2, Edema Other Physical/Emotional Findings: Intubated and on mechanical ventilation with morbid obesity. At the time of my visit the patient was undergoing x-ray for placement/repositioning of her NG tube and further exam was deferred Assessment And Plan - Current Problems (Diagnosis) (1) Respiratory failure with hypoxia and hypercapnia Current Visit: No Status: Acute Plan: Admitted with obesity hypoventilation syndrome diffuse pulmonary infiltrates res ponded well to diuretics yesterday labs chemistries reviewed chest x-ray ordered gnosis poor awaiting NIV titrate sat to 88-90% diabetes add metformin add Dulera side physical therapy Qualifiers: Chronicity: acute on chronic Qualified Code(s): J96.21 - Acute and chronic respiratory failure with hypoxia; J96.22 - Acute and chronic respiratory failure with hypercapnia
[2024-02-09] MEDS: METFORMIN HCL 500 MG TAB PO SCH (11:01)
[2024-02-09] MEDS: DULERA 200/5 (MOMETASONE/FORMOTEROL) INHALER IH SCH (11:01)
--- NOTE | 2024-02-09 11:01 | RAD REPORT ---
EXAM DESCRIPTION: RAD - Chest Single View - 02/09/2024 10:41 am CLINICAL HISTORY: Respiratory failure Chest pain. COMPARISON: Chest Single View dated 02/08/2024; Chest Single View dated 02/06/2024; Chest Single View dated 02/02/2024; Abdomen 1 View ([facility]) dated 02/01/2024 FINDINGS: Portable technique limits examination quality. There is extensive bilateral pulmonary opacities present likely representing pulmonary edema or pneum onia. The findings appear similar to mildly improved since yesterday's study. The heart is moderately enlarged. No displaced fractures. IMPRESSION: Mild improvement in lung aeration since comparative study from yesterday.
[2024-02-09] MEDS: INSULIN GLARGINE 100 UNIT/ML SQ SCH (21:56)
[2024-02-10 05:47] LABS: Hematocrit 31.2 % (36.0-45.0); Hemoglobin 9.8 g/dL (12.0-15.0); MCHC 31.5 g/dL (32.0-36.0); MCV 95.3 fL (80-100); MPV 9.3 fL (7.6-11.3); Platelets 380 thou/uL (152-406); RBC Red Blood Cell Count 3.28 M/uL (3.86-4.86); Red Cell Distribution Width 19.2 % (12.1-15.2)
[2024-02-10 05:58] LABS: Anion Gap 4.8 mEq/L (5.0-15.0); Magnesium 1.8 mg/dL (1.6-2.4); Potassium 4.8 mEq/L (3.5-5.1)
--- NOTE | 2024-02-10 10:03 | RAD REPORT ---
EXAM DESCRIPTION: RAD - Chest Single View - 02/10/2024 6:48 am CLINICAL HISTORY: Respiratory failure Chest pain. COMPARISON: Chest Single View dated 02/09/2024; Chest Single View dated 02/08/2024; Chest Single View dated 02/06/2024; Chest Single View dated 02/02/2024 FINDINGS: Portable technique limits examination quality. Moderate bilateral pulmonary opacities are again seen, mildly improved since yesterday's study. The h eart is moderately enlarged. No displaced fractures. IMPRESSION: Mild improvement in lung aeration seen since yesterday's study.
--- NOTE | 2024-02-10 10:22 | P.PN ---
Date of Service: 02/10/24 Subjective: Feeling better today tolerating hiflo/BiPAP no new issues overnight afebrile voiding without issue ROS: 10 point ROS as noted above, otherwise negative Physical Exam: GEN: NAD, awake, AOx3, speaking more clear / not as slow HEENT: Normal conjunctiva, sclera anicteric CV: Regular rate and rhythm, trace bilateral lower extremity edema Pulm: on hiflo, diminished at bases b/l ABD: Soft, nontender, nondistended Neuro: Awake, interactive, normal affect purewick in place vitals reviewed Problem List: Acute on chronic hypercapnic/hypoxic respiratory failure secondary to Pneumonia / acute COPD exacerbation / obesity hypoventilation syndrome acute on chronic COPD (~3L home O2) UTI, E. coli Esbl Acute on chronic diastolic CHF IDDM2 with hyperglycemia Morbid obesity constipation Stage 2 sacral pressure ulcer Acute on chronic hypercapnic/hypoxic respiratory failure secondary to Pneumonia / acute COPD exacerbation / obesity hypoventilation syndrome acute on chronic COPD (~3L home O2) Reported worsening dyspnea, hypoxia [facility] reports Pt generally noncompliant with CPAP. Typically wears 3L o2 Unable to obtain CT to further differentiate edema vs pneumonia given body habitus CXR (01/23): extensive bilateral pulmonary opacities R > L. pneumonia vs pulm edema. CXR improving Intubated in ED given worsening respiratory acidosis/hypercapnic respiratory failure despite BiPAP Extubated 02/03; tolerating BiPAP/hiflow Dr. Mcintyre, Pulmonology following - started process for home NIV 02/05 repeat ABG 02/06 with pH: 7.29, PCO2: 76, HCO3: 36.1. Placed on BiPAP pulm recommends bipap as much as possible Continue duonebs, diamox Blood cx (01/23): no growth urine cx (01/23): E. Coli ESBL sputum cx (01/29): MRSA, Acinetobacter dhiraj/haem completed 2 weeks of merrem and Vanc/bactrim (01/25-02/08) afebrile, leukocytosis resolved UTI, E. coli Esbl urine cx (01/23): E. coli Esbl completed 2 weeks of merrem and Vanc/bactrim (01/25-02/08) afebrile, leukocytosis resolved Acute on chronic diastolic CHF responded well to lasix and then switched to Diamox due to metabolic alkalosis. Continue diuresis with PO Diamox Trial of spironolactone started 02/07 per pulm past echo from 08/21/23 with 77%EF but poor windows/difficult evaluate with body habitus IDDM2 with hyperglycemia Accu-Checks q6h, SSI hyperglycemia secondary to TPN now that she is off TPN, glc much better controlled, has not received long acting insulin in a few days reviewed sliding scale doses and glc levels semglee increased to 15u at bedtime (02/08) home metformin resumed (02/08) Morbid obesity Weight loss advised. Stage 2 sacral pressure ulcer continue local wound care Frequent turning q2h VTE: Lovenox Code: Full Dispo: back to [facility]. ~3-4 days Pending able to tolerate oxygen by [place] pending NIV set up downgrade to floor today
--- NOTE | 2024-02-10 11:35 | P.PN ---
Subjective Date of Service: 02/10/24 Chief Complaint: Chronic respiratory failure Patient's condition remains stable complaining of some discomfort in her stomach Review of Systems General: Malaise Respiratory: Shortness of Breath Physical Examination - Vital Signs Temperature: 97.5 F Blood Pressure: 110/56 Pulse: 90 Respirations: 15 Pulse Ox (%): 91 - Physical Exam General: Alert, Oriented x3 Respiratory: Clear to auscultation bilaterally, Diminished Cardiovascular: No edema, Regular rate/rhythm, Normal S1 S2 Other Physical/Emotional Findings: Intubated and on mechanical ventilation with morbid obesity. At the time of my visit the patient was undergoing x-ray for placement/repositioning of her NG tube and further exam was deferred Assessment And Plan - Current Problems (Diagnosis) (1) Respiratory failure with hypoxia and hypercapnia Current Visit: No Status: Acute Plan: Patient has chronic respiratory failure condition stable still hypoxic labs chemistries reviewed vital signs stable stable to be transferred to the floor with BiPAP alternating with high flow continue with the spironolactone Diamox and inhaled bronchodilators physical therapy Qualifiers: Chronicity: acute on chronic Qualified Code(s): J96.21 - Acute and chronic respiratory failure with hypoxia; J96.22 - Acute and chronic respiratory failure with hypercapnia
--- NOTE | 2024-02-11 10:49 | RAD REPORT ---
EXAM DESCRIPTION: Eric Single View02/11/2024 10:15 am CLINICAL HISTORY: Respiratory failure COMPARISON: February 10, 2024 FINDINGS: No significant change in the bilateral pulmonary opacities and cardiomegaly. PICC line in place IMPRESSION: No change bilateral pulmonary opacities represent pulmonary or pneumonia
--- NOTE | 2024-02-11 13:33 | P.PN ---
Date of Service: 02/11/24 Subjective: ROS: 10 point ROS as noted above, otherwise negative Physical Exam: GEN: NAD, awake, AOx3, speaking more clear / not as slow HEENT: Normal conjunctiva, sclera anicteric CV: Regular rate and rhythm, trace bilateral lower extremity edema Pulm: on hiflo, diminished at bases b/l ABD: Soft, nontender, nondistended Neuro: Awake, interactive, normal affect purewick in place vitals reviewed Problem List: Acute on chronic hypercapnic/hypoxic respiratory failure secondary to Pneumonia / acute COPD exacerbation / obesity hypoventilation syndrome acute on chronic COPD (~3L home O2) UTI, E. coli Esbl Acute on chronic diastolic CHF IDDM2 with hyperglycemia Morbid obesity constipation Stage 2 sacral pressure ulcer Acute on chronic hypercapnic/hypoxic respiratory failure secondary to Pneumonia / acute COPD exacerbation / obesity hypoventilation syndrome acute on chronic COPD (~3L home O2) Reported worsening dyspnea, hypoxia at [facility] reports Pt generally noncompliant with CPAP. Typically wears 3L o2 Unable to obtain CT to further differentiate edema vs pneumonia given body habitus CXR (01/23): extensive bilateral pulmonary opacities R > L. pneumonia vs pulm edema. CXR improving/stable Intubated in ED given worsening respiratory acidosis/hypercapnic respiratory failure despite BiPAP Extubated 02/03; tolerating BiPAP/hiflo Dr. Mcintyre, Pulmonology following - started process for home NIV 02/05 repeat ABG 02/06 with pH: 7.29, PCO2: 76, HCO3: 36.1. Placed on BiPAP pulm recommends bipap as much as possible Continue duonebs, diamox Blood cx (01/23): no growth urine cx (01/23): E. Coli ESBL sputum cx (01/29): MRSA, Acinetobacter dhiraj/haem completed 2 weeks of merrem and Vanc/bactrim (01/25-02/08) afebrile, leukocytosis resolved UTI, E. coli Esbl urine cx (01/23): E. coli Esbl completed 2 weeks of merrem and Vanc/bactrim (01/25-02/08) afebrile, leukocytosis resolved Acute on chronic diastolic CHF responded well to lasix and then switched to Diamox due to metabolic alkalosis. Continue diuresis with PO Diamox Trial of spironolactone started 02/07 per pulm past echo from 08/21/23 with 77%EF but poor windows/difficult evaluate with body habitus IDDM2 with hyperglycemia Accu-Checks q6h, SSI hyperglycemia secondary to TPN now that she is off TPN, glc much better controlled, has not received long acting insulin in a few days reviewed sliding scale doses and glc levels semglee increased to 15u at bedtime (02/08) home metformin resumed (02/08) Morbid obesity Weight loss advised. Stage 2 sacral pressure ulcer continue local wound care Frequent turning q2h VTE: Lovenox Code: Full Dispo: back to [facility]. ~2-3 days Pending able to tolerate oxygen by [place] pending NIV set up
[2024-02-11] MEDS: NYSTATIN PWDR 100000 UNIT/GM TOP SCH (21:00)
[2024-02-11] MEDS ORDERED: NYSTATIN PWDR 100000 UNIT/GM TOP SCH (21:00)
[2024-02-11] MEDS: INSULIN REGULAR (HUMAN) 100 UNIT/ML SQ SCH (21:44)
--- NOTE | 2024-02-12 06:51 | P.PN ---
Date of Service: 02/12/24 Subjective: no acute events overnight no new./worsening symptoms ROS: 10 point ROS as noted above, otherwise negative Physical Exam: GEN: NAD, awake, AOx3 HEENT: Normal conjunctiva, sclera anicteric CV: Regular rate and rhythm, trace bilateral lower extremity edema Pulm: on hiflo, diminished at bases b/l ABD: Soft, nontender, nondistended Neuro: Awake, interactive, normal affect purewick in place vitals reviewed Problem List: Acute on chronic hypercapnic/hypoxic respiratory failure secondary to Pneumonia / acute COPD exacerbation / obesity hypoventilation syndrome acute on chronic COPD (~3L home O2) UTI, E. coli Esbl Acute on chronic diastolic CHF IDDM2 with hyperglycemia Morbid obesity constipation Stage 2 sacral pressure ulcer Acute on chronic hypercapnic/hypoxic respiratory failure secondary to Pneumonia / acute COPD exacerbation / obesity hypoventilation syndrome acute on chronic COPD (~3L home O2) Reported worsening dyspnea, hypoxia at intermediate. intermediate reports Pt generally noncompliant with CPAP. Typically wears 3L o2 Unable to obtain CT to further differentiate edema vs pneumonia given body habitus CXR (01/23): extensive bilateral pulmonary opacities R > L. pneumonia vs pulm edema. CXR improving/stable Intubated in ED given worsening respiratory acidosis/hypercapnic respiratory failure despite BiPAP Extubated 02/03; tolerating BiPAP/hiflo Dr. Mcintyre, Pulmonology following - started process for home NIV 02/05 repeat ABG 02/06 with pH: 7.29, PCO2: 76, HCO3: 36.1. Placed on BiPAP pulm recommends bipap as much as possible Continue duonebs, diamox Blood cx (01/23): no growth urine cx (01/23): E. Coli ESBL sputum cx (01/29): MRSA, Acinetobacter dhiraj/haem completed 2 weeks of merrem and Vanc/bactrim (01/25-02/08) afebrile, leukocytosis resolved UTI, E. coli Esbl urine cx (01/23): E. coli Esbl completed 2 weeks of merrem and Vanc/bactrim (01/25-02/08) afebrile, leukocytosis resolved Acute on chronic diastolic CHF responded well to lasix and then switched to Diamox due to metabolic alkalosis. Continue diuresis with PO Diamox spironolactone started 02/07 per pulm past echo from 08/21/23 with 77%EF but poor windows/difficult evaluate with body habitus IDDM2 with hyperglycemia Accu-Checks q6h, SSI hyperglycemia secondary to TPN now that she is off TPN, glc much better controlled, has not received long acting insulin in a few days reviewed sliding scale doses and glc levels semglee increased to 15u at bedtime (02/08) home metformin resumed (02/08) Morbid obesity Weight loss advised. Stage 2 sacral pressure ulcer continue local wound care Frequent turning q2h VTE: Lovenox Code: Full Dispo: back to [facility]. ~2-3 days Pending able to tolerate oxygen by NC / off hiflo pending NIV set up - approved, but finalizing logistics between NIV company and intermediate
[2024-02-12 07:21] LABS: Hematocrit 29.8 % (36.0-45.0); Hemoglobin 9.7 g/dL (12.0-15.0); MCH 30.2 pg (27.0-35.0); MCHC 32.4 g/dL (32.0-36.0); MCV 93.2 fL (80-100); MPV 8.8 fL (7.6-11.3); Platelets 311 thou/uL (152-406); Red Cell Distribution Width 18.6 % (12.1-15.2)
[2024-02-12 07:37] LABS: Magnesium 1.7 mg/dL (1.6-2.4)
[2024-02-12] MEDS: MAGNESIUM SULFATE 1 gm IVPB 1 GM/100 ML BAG IV ONE (09:30)
[2024-02-12] MEDS: HYDROCODONE/APAP 5/325 MG TAB PO ONE (10:49)
[2024-02-12] MEDS: HYDROCODONE/APAP 5/325 MG TAB ONE (19:32)
--- NOTE | 2024-02-13 12:27 | P.PN ---
Subjective Date of Service: 02/13/24 Chief Complaint: Chronic respiratory failure Patient's condition is stable on the floor on high flow oxygen complaining of shortness of breath and chest congestion Review of Systems General: Weakness Respiratory: Cough, Shortness of Breath Physical Examination - Vital Signs Temperature: 97.3 F Blood Pressure: 140/63 Pulse: 8 Respirations: 18 Pulse Ox (%): 92 - Physical Exam General: Alert, In no apparent distress, Oriented x3 Neck: Supple Respiratory: Clear to auscultation bilaterally, Diminished Cardiovascular: No edema, Regular rate/rhythm Other Physical/Emotional Findings: Intubated and on mechanical ventilation with morbid obesity. At the time of my visit the patient was undergoing x-ray for placement/repositioning of her NG tube and further exam was deferred Assessment And Plan - Current Problems (Diagnosis) (1) Respiratory failure with hypoxia and hypercapnia Current Visit: No Status: Acute Plan: Patient has hypoxic hypercapnic respiratory failure titrate sat to 90% check arterial blood gases labs reviewed blood sugar elevated increase the dose of insulin continue with inhaled bronchodilators prognosis poor Qualifiers: Chronicity: acute on chronic Qualified Code(s): J96.21 - Acute and chronic respiratory failure with hypoxia; J96.22 - Acute and chronic respiratory failure with hypercapnia
[2024-02-13] MEDS: HYDROCODONE/APAP 5/325 MG TAB PO PRN (13:06)
[2024-02-13 16:55] LABS: Arterial Blood Carboxyhemoglob 1.7 % (0-1.5); Blood Gas Oxyhemoglobin 88.8 % (94-97); Blood Gas THB 10.3 g/dl (12-18); Blood O2 Saturation 91.5 % (92-98.5)
--- NOTE | 2024-02-13 18:14 | P.PN ---
Subjective Date of Service: 02/13/24 Chief Complaint: Chronic respiratory failure Patient has been on high flow oxygen for several days. She complains of chest pain with breathing. She has been tolerating diet. Physical Examination - Vital Signs Temperature: 96.9 F Blood Pressure: 142/63 Pulse: 96 Respirations: 16 Pulse Ox (%): 90 - Physical Exam Other Physical/Emotional Findings: Intubated and on mechanical ventilation with morbid obesity. At the time of my visit the patient was undergoing x-ray for placement/repositioning of her NG tube and further exam was deferred Assessment And Plan - Plan Physical Exam: GEN: NAD, awake, AOx3 HEENT: High flow oxygen CV: Regular rate and rhythm, trace bilateral lower extremity edema Pulm: diminished at bases b/l, bibasilar crackles. ABD: Soft, nontender, nondistended Neuro: Awake, interactive, normal affect purewick in place vitals reviewed Problem List: Acute on chronic hypercapnic/hypoxic respiratory failure secondary to Pneumonia / acute COPD exacerbation / obesity hypoventilation syndrome acute on chronic COPD (~3L home O2) UTI, E. coli Esbl Acute on chronic diastolic CHF IDDM2 with hyperglycemia Morbid obesity constipation Stage 2 sacral pressure ulcer Acute on chronic hypercapnic/hypoxic respiratory failure secondary to Pneumonia / acute COPD exacerbation / obesity hypoventilation syndrome acute on chronic COPD (~3L home O2) Reported worsening dyspnea, hypoxia at senior care. senior care reports Pt generally noncompliant with CPAP. Typically wears 3L o2 Unable to obtain CT to further differentiate edema vs pneumonia given body habitus CXR (01/23): extensive bilateral pulmonary opacities R > L. pneumonia vs pulm edema. CXR improving/stable Intubated in ED given worsening respiratory acidosis/hypercapnic respiratory failure despite BiPAP Extubated 02/03; tolerating BiPAP/hiflo Dr. Mcintyre, Pulmonology following - started process for home NIV 02/05 repeat ABG 02/06 with pH: 7.29, PCO2: 76, HCO3: 36.1. Placed on BiPAP pulm recommends bipap as much as possible Continue duonebs, diamox Wean oxygen to target SaO2 90% Blood cx (01/23): no growth urine cx (01/23): E. Coli ESBL sputum cx (01/29): MRSA, Acinetobacter dhiraj/haem completed 2 weeks of merrem and Vanc/bactrim (01/25-02/08) afebrile, leukocytosis resolved UTI, E. coli Esbl urine cx (01/23): E. coli Esbl completed 2 weeks of merrem and Vanc/bactrim (01/25-02/08) afebrile, leukocytosis resolved Acute on chronic diastolic CHF responded well to lasix and then switched to Diamox due to metabolic alkalosis. Continue diuresis with PO Diamox spironolactone added 02/07 per pulm Prior echocardiogram: EF 77% IDDM2 with hyperglycemia Accu-Checks q6h, SSI Prior hyperglycemia secondary to TPN Continue Semglee, insulin sliding scale and metformin Morbid obesity Weight loss advised. Stage 2 sacral pressure ulcer continue local wound care Frequent turning q2h VTE: Lovenox Code: Full Dispo: back to [facility] once patient has been weaned off the high flow oxygen and pending NIV set up.
[2024-02-13] MEDS: INSULIN GLARGINE 100 UNIT/ML SQ SCH (21:59)
[2024-02-14 03:17] LABS: Absolute Basophils 0.1 K/uL (0-0.5); Absolute Eosinophils 0.4 K/uL (0-0.5); Absolute Lymphocytes (CBC) 1.9 K/uL (0.7-4.9); Absolute Monocytes 0.5 K/uL (0.1-1.3); Absolute Neutrophil 4.5 K/uL (1.8-8.0); Basophils % 1.3 % (0-1.3); Hematocrit 32.2 % (36.0-45.0); Lymphocytes % 25.3 % (15.3-44.8); MCH 29.1 pg (27.0-35.0); MCHC 30.9 g/dL (32.0-36.0); MCV 94.3 fL (80-100); MPV 9.2 fL (7.6-11.3); Monocytes % 6.6 % (3.3-12.3); Neutrophils % 60.8 % (41.7-73.7); Nucleated Red Blood Cells % 0.1 % (0-0); Platelets 281 thou/uL (152-406); RBC Red Blood Cell Count 3.42 M/uL (3.86-4.86); Red Cell Distribution Width 18.3 % (12.1-15.2)
[2024-02-14 03:37] LABS: Anion Gap 8.2 mEq/L (5.0-15.0); Potassium 4.2 mEq/L (3.5-5.1)
[2024-02-14] MEDS ORDERED: ALBUTEROL 2.5 MG/3 ML NEB SOL NEB PRN (06:44)
--- NOTE | 2024-02-14 13:10 | P.PN ---
Subjective Date of Service: 02/14/24 Chief Complaint: Chronic respiratory failure Patient seen on BiPAP and sleeping during my examination. No issues overnight It appears high flow oxygen was weaned down to 6 L 50% FiO2 yesterday. She is currently tolerating 9 L oxygen by nasal cannula Physical Examination - Vital Signs Temperature: 97.4 F Blood Pressure: 121/56 Pulse: 88 Respirations: 18 Pulse Ox (%): 90 - Physical Exam Other Physical/Emotional Findings: Intubated and on mechanical ventilation with morbid obesity. At the time of my visit the patient was undergoing x-ray for placement/repositioning of her NG tube and further exam was deferred Assessment And Plan - Plan Physical Exam: GEN: NAD, awake, AOx3, morbidly obese HEENT: Oxygen by nasal cannula. CV: Regular rate and rhythm, trace bilateral lower extremity edema Pulm: diminished at bases b/l, bibasilar crackles. ABD: Soft, nontender, nondistended Neuro: Awake, interactive, normal affect purewick in place vitals reviewed Problem List: Acute on chronic hypercapnic/hypoxic respiratory failure secondary to Pneumonia / acute COPD exacerbation / obesity hypoventilation syndrome acute on chronic COPD (~3L home O2) UTI, E. coli Esbl Acute on chronic diastolic CHF IDDM2 with hyperglycemia Morbid obesity constipation Stage 2 sacral pressure ulcer Acute on chronic hypercapnic/hypoxic respiratory failure secondary to Pneumonia / acute COPD exacerbation / obesity hypoventilation syndrome acute on chronic COPD (~3L home O2) Reported worsening dyspnea, hypoxia at prison. prison reports Pt generally noncompliant with CPAP. Typically wears 3L o2 Unable to obtain CT to further differentiate edema vs pneumonia given body habitus CXR (01/23): extensive bilateral pulmonary opacities R > L. pneumonia vs pulm edema. CXR improving/stable Intubated in ED given worsening respiratory acidosis/hypercapnic respiratory failure despite BiPAP Extubated 02/03; has been BiPAP/hiflo, now transitioned to BIPAP/O2 by [place] Dr. Mcintyre, Pulmonology following - started process for home NIV 02/05 pending final approval. repeat ABG 02/06 with pH: 7.29, PCO2: 76, HCO3: 36.1. Placed on BiPAP Continue duonebs, diamox Wean oxygen to target SaO2 90% Blood cx (01/23): no growth urine cx (01/23): E. Coli ESBL sputum cx (01/29): MRSA, Acinetobacter dhiraj/haem completed 2 weeks of merrem and Vanc/bactrim (01/25-02/08) afebrile, leukocytosis resolved UTI, E. coli Esbl urine cx (01/23): E. coli Esbl completed 2 weeks of merrem and Vanc/bactrim (01/25-02/08) afebrile, leukocytosis resolved Acute on chronic diastolic CHF Status post lasix, transitioned to Diamox due to metabolic alkalosis. Continue diuresis with PO Diamox spironolactone added 02/07 per pulm IDDM2 with hyperglycemia Accu-Checks q6h, SSI Prior hyperglycemia secondary to TPN Continue Semglee, insulin sliding scale and metformin Morbid obesity Weight loss advised. Stage 2 sacral pressure ulcer continue local wound care Frequent turning q2h VTE: Lovenox Code: Full Dispo: back to [facility] once patient has been weaned off the high flow oxygen and pending NIV set up.
--- NOTE | 2024-02-15 10:39 | P.PN ---
Subjective Date of Service: 02/15/24 Chief Complaint: Chronic respiratory failure Patient is awake and alert and happy she is now tolerating oxygen by nasal cannula. Oxygen weaned down to 7 L by nasal cannula. Physical Examination - Vital Signs Temperature: 97.4 F Blood Pressure: 119/58 Pulse: 97 Respirations: 19 Pulse Ox (%): 97 - Physical Exam Other Physical/Emotional Findings: Intubated and on mechanical ventilation with morbid obesity. At the time of my visit the patient was undergoing x-ray for placement/repositioning of her NG tube and further exam was deferred Assessment And Plan - Plan Physical Exam: GEN: NAD, awake, AOx3. HEENT: Oxygen by nasal cannula. CV: Regular rate and rhythm, trace bilateral lower extremity edema Pulm: diminished at bases b/l, clear to auscultation. ABD: Soft, nontender, nondistended Neuro: Awake, interactive, normal affect purewick in place vitals reviewed Problem List: Acute on chronic hypercapnic/hypoxic respiratory failure secondary to Pneumonia / acute COPD exacerbation / obesity hypoventilation syndrome acute on chronic COPD (~3L home O2) UTI, E. coli Esbl Acute on chronic diastolic CHF IDDM2 with hyperglycemia Morbid obesity constipation Stage 2 sacral pressure ulcer Acute on chronic hypercapnic/hypoxic respiratory failure secondary to Pneumonia / acute COPD exacerbation / obesity hypoventilation syndrome acute on chronic COPD (~3L home O2) Reported worsening dyspnea, hypoxia at assisted. assisted reports Pt generally noncompliant with CPAP. Typically wears 3L o2 Unable to obtain CT to further differentiate edema vs pneumonia given body habitus CXR (01/23): extensive bilateral pulmonary opacities R > L. pneumonia vs pulm edema. CXR improving/stable Intubated in ED given worsening respiratory acidosis/hypercapnic respiratory failure despite BiPAP Extubated 02/03; has been BiPAP/hiflo, now transitioned to BIPAP/O2 by [place] Dr. Mcintyre, Pulmonology following - started process for home NIV 02/05 pending final approval. repeat ABG 02/06 with pH: 7.29, PCO2: 76, HCO3: 36.1. Placed on BiPAP Continue duonebs, diamox Wean oxygen to target SaO2 90%. Oxygen weaned down to 7 L by nasal cannula. Continue to wean oxygen. Blood cx (01/23): no growth urine cx (4/10): E. Coli ESBL sputum cx (01/29): MRSA, Acinetobacter dhiraj/haem completed 2 weeks of merrem and Vanc/bactrim (01/25-02/08) afebrile, leukocytosis resolved UTI, E. coli Esbl urine cx (01/23): E. coli Esbl completed 2 weeks of merrem and Vanc/bactrim (01/25-02/08) afebrile, leukocytosis resolved Acute on chronic diastolic CHF Status post lasix, transitioned to Diamox due to metabolic alkalosis. Continue diuresis with PO Diamox On spironolactone added 02/07 per pulm IDDM2 with hyperglycemia Accu-Checks q6h, SSI Prior hyperglycemia secondary to TPN Titrate Semglee, continue insulin sliding scale and metformin Morbid obesity Weight loss advised. Stage 2 sacral pressure ulcer continue local wound care Frequent turning q2h VTE: Lovenox Code: Full Dispo: back to [facility] once patient is tolerating at least 4 L of oxygen by nasal cannula and NIV has been set up.
[2024-02-16] MEDS ORDERED: INSULIN GLARGINE 100 UNIT/ML SQ ONE (10:48)
[2024-02-16] MEDS: INSULIN REGULAR (HUMAN) 100 UNIT/ML SQ SCH (17:46)
--- NOTE | 2024-02-16 19:17 | P.PN ---
Subjective Date of Service: 02/16/24 Chief Complaint: Chronic respiratory failure Patient reported anxiety with oxygen weaning. She is currently tolerating 6 L of oxygen by nasal cannula and saturating at 93 to 94%. No issues overnight. Physical Examination - Vital Signs Temperature: 98.3 F Blood Pressure: 142/73 Pulse: 93 Respirations: 19 Pulse Ox (%): 99 - Physical Exam Other Physical/Emotional Findings: Intubated and on mechanical ventilation with morbid obesity. At the time of my visit the patient was undergoing x-ray for placement/repositioning of her NG tube and further exam was deferred Assessment And Plan - Plan Physical Exam: GEN: NAD, awake, AOx3. HEENT: Oxygen by nasal cannula. CV: Regular rate and rhythm, trace bilateral lower extremity edema Pulm: diminished at bases b/l, clear to auscultation. ABD: Soft, nontender, nondistended Neuro: Awake, interactive, anxious. purewick in place vitals reviewed Problem List: Acute on chronic hypercapnic/hypoxic respiratory failure secondary to Pneumonia / acute COPD exacerbation / obesity hypoventilation syndrome acute on chronic COPD (~3L home O2) UTI, E. coli Esbl Acute on chronic diastolic CHF IDDM2 with hyperglycemia Morbid obesity constipation Stage 2 sacral pressure ulcer Acute on chronic hypercapnic/hypoxic respiratory failure secondary to Pneumonia / acute COPD exacerbation / obesity hypoventilation syndrome acute on chronic COPD (~3L home O2) Hypoxia at retirement. retirement reports Pt generally noncompliant with CPAP. Typically wears 3L o2 Unable to obtain CT to further differentiate edema vs pneumonia given body habitus CXR (01/23): extensive bilateral pulmonary opacities R > L. pneumonia vs pulm edema. CXR improving/stable Intubated in ED given worsening respiratory acidosis/hypercapnic respiratory failure despite BiPAP Extubated 02/03; has been BiPAP/hiflo, now transitioned to BIPAP/O2 by [place] Dr. Mcintyre, Pulmonology following - started process for home NIV 02/05 pending final approval. repeat ABG 02/06 with pH: 7.29, PCO2: 76, HCO3: 36.1. Placed on BiPAP Continue duonebs, diamox Continue to wean oxygen. Blood cx (01/23): no growth urine cx (01/23): E. Coli ESBL sputum cx (01/29): MRSA, Acinetobacter dhiraj/haem completed 2 weeks of merrem and Vanc/bactrim (01/25-02/08) afebrile, leukocytosis resolved Oxygen weaned down to 6 L by nasal cannula and patient is saturating at 93%. Weaned to 4 L by nasal cannula as tolerated. UTI, E. coli Esbl urine cx (01/23): E. coli Esbl completed 2 weeks of merrem and Vanc/bactrim (01/25-02/08) afebrile, leukocytosis resolved Acute on chronic diastolic CHF Status post lasix, transitioned to Diamox due to metabolic alkalosis. Continue diuresis with PO Diamox On spironolactone added 02/07 per pulm IDDM2 with hyperglycemia Accu-Checks q6h, SSI Prior hyperglycemia secondary to TPN Titrate Semglee, continue insulin sliding scale and metformin. Semglee titrated to 40 units daily. Morbid obesity Weight loss advised. Stage 2 sacral pressure ulcer continue local wound care Frequent turning q2h VTE: Lovenox Code: Full Dispo: back to [facility] once patient is tolerating at least 4 L of oxygen by nasal cannula and NIV has been set up.
[2024-02-16] MEDS: INSULIN GLARGINE 100 UNIT/ML SQ SCH (22:02)
[2024-02-17 15:06] VITALS: BMI 90.8
[2024-02-17] MEDS ORDERED: INSULIN REGULAR (HUMAN) 100 UNIT/ML ONE (17:24)
--- NOTE | 2024-02-18 13:11 | P.PN ---
Subjective Date of Service: 02/17/24 Chief Complaint: Chronic respiratory failure Patient is tolerating 6 L of oxygen by nasal cannula. No issues overnight. No issues overnight. Patient is tolerating diet and currently has no complaint. Physical Examination - Vital Signs Temperature: 97.6 F Blood Pressure: 117/64 Pulse: 97 Respirations: 20 Pulse Ox (%): 90 - Physical Exam Other Physical/Emotional Findings: Intubated and on mechanical ventilation with morbid obesity. At the time of my visit the patient was undergoing x-ray for placement/repositioning of her NG tube and further exam was deferred Assessment And Plan - Plan Physical Exam: GEN: NAD, awake, AOx3. HEENT: Oxygen by nasal cannula. CV: Regular rate and rhythm, trace bilateral lower extremity edema Pulm: diminished at bases b/l, clear to auscultation. ABD: Soft, nontender, nondistended Neuro: Awake, no focal motor deficit. purewick in place vitals reviewed Problem List: Acute on chronic hypercapnic/hypoxic respiratory failure secondary to Pneumonia / acute COPD exacerbation / obesity hypoventilation syndrome acute on chronic COPD (~3L home O2) UTI, E. coli Esbl Acute on chronic diastolic CHF IDDM2 with hyperglycemia Morbid obesity constipation Stage 2 sacral pressure ulcer Acute on chronic hypercapnic/hypoxic respiratory failure secondary to Pneumonia / acute COPD exacerbation / obesity hypoventilation syndrome acute on chronic COPD (~3L home O2) Hypoxia at group home. group home reports Pt generally noncompliant with CPAP. Typically wears 3L o2 Unable to obtain CT to further differentiate edema vs pneumonia given body habitus CXR (01/23): extensive bilateral pulmonary opacities R > L. pneumonia vs pulm edema. CXR improving/stable Intubated in ED given worsening respiratory acidosis/hypercapnic respiratory failure despite BiPAP Extubated 02/03; has been on BiPAP/hiflo, now transitioned to O2 by [place] Dr. Mcintyre, Pulmonology following - home NIV has been arranged. Continue duonebs, diamox Blood cx (01/23): no growth urine cx (01/23): E. Coli ESBL sputum cx (01/29): MRSA, Acinetobacter dhiraj/haem completed 2 weeks of merrem and Vanc/bactrim (01/25-02/08) afebrile, leukocytosis resolved Oxygen weaned down to 6 L by nasal cannula and patient is saturating at 96%. Weaned to 4 L by nasal cannula as tolerated. UTI, E. coli Esbl urine cx (01/23): E. coli Esbl completed 2 weeks of merrem and Vanc/bactrim (01/25-02/08) afebrile, leukocytosis resolved Acute on chronic diastolic CHF Status post lasix, transitioned to Diamox due to metabolic alkalosis. Continue diuresis with PO Diamox On spironolactone added 02/07 per pulm IDDM2 with hyperglycemia Accu-Checks q6h, SSI Titrate Semglee, continue insulin sliding scale and metformin. Semglee titrated to 40 units daily with better blood sugar control. Morbid obesity Weight loss advised. Stage 2 sacral pressure ulcer continue local wound care Frequent turning q2h VTE: Lovenox Code: Full Dispo: back to [facility] once patient is tolerating at least 4 L of oxygen by nasal cannula.
--- NOTE | 2024-02-18 13:18 | P.PN ---
Subjective Date of Service: 02/18/24 Chief Complaint: Chronic respiratory failure Rapid response called on the patient yesterday evening for shortness of breath. Patient noted to be hypoxic with SaO2 down to 41%. She was placed on BiPAP and subsequently transitioned to oxygen by nasal cannula. Patient is currently tolerating 6 L by nasal cannula. Physical Examination - Vital Signs Temperature: 97.6 F Blood Pressure: 117/64 Pulse: 97 Respirations: 20 Pulse Ox (%): 90 - Physical Exam Other Physical/Emotional Findings: Intubated and on mechanical ventilation with morbid obesity. At the time of my visit the patient was undergoing x-ray for placement/repositioning of her NG tube and further exam was deferred Assessment And Plan - Plan Physical Exam: GEN: NAD, awake, AOx3. HEENT: Oxygen by nasal cannula. CV: Regular rate and rhythm, trace bilateral lower extremity edema Pulm: diminished at bases b/l, clear to auscultation. ABD: Soft, nontender, nondistended Neuro: Awake, no focal motor deficit. purewick in place vitals reviewed Problem List: Acute on chronic hypercapnic/hypoxic respiratory failure secondary to Pneumonia / acute COPD exacerbation / obesity hypoventilation syndrome acute on chronic COPD (~3L home O2) UTI, E. coli Esbl Acute on chronic diastolic CHF IDDM2 with hyperglycemia Morbid obesity constipation Stage 2 sacral pressure ulcer Acute on chronic hypercapnic/hypoxic respiratory failure secondary to Pneumonia / acute COPD exacerbation / obesity hypoventilation syndrome acute on chronic COPD (~3L home O2) Hypoxia at alf. alf reports Pt generally noncompliant with CPAP. Typically wears 3L o2 Unable to obtain CT to further differentiate edema vs pneumonia given body habitus Intubated in ED given worsening respiratory acidosis/hypercapnic respiratory failure despite BiPAP CXR (01/23): extensive bilateral pulmonary opacities R > L. pneumonia vs pulm edema. Most recent CXR improving/stable Extubated 02/03; has been on BiPAP/hiflo, now transitioned to O2 by [place] Dr. Mcintyre, Pulmonology following - home NIV has been arranged. Continue duonebs, diamox Blood cx (01/23): no growth urine cx (01/23): E. Coli ESBL sputum cx (01/29): MRSA, Acinetobacter dhiraj/haem completed 2 weeks of merrem and Vanc/bactrim (01/25-02/08) afebrile, leukocytosis resolved Oxygen weaned down to 6 L by nasal cannula. Continue to wean to 4 L by nasal cannula as tolerated. UTI, E. coli Esbl urine cx (01/23): E. coli Esbl completed 2 weeks of merrem and Vanc/bactrim (01/25-02/08) afebrile, leukocytosis resolved Acute on chronic diastolic CHF Status post lasix, transitioned to Diamox due to metabolic alkalosis. Continue diuresis with PO Diamox On spironolactone. IDDM2 with hyperglycemia Accu-Checks q6h, SSI continue insulin sliding scale and metformin. Continue current dose Semglee. Morbid obesity Weight loss advised. Stage 2 sacral pressure ulcer continue local wound care Frequent turning q2h VTE: Lovenox Code: Full Dispo: back to [facility] once patient is tolerating at least 4 L of oxygen by nasal cannula.
[2024-02-18] MEDS ORDERED: INSULIN REGULAR (HUMAN) 100 UNIT/ML SQ SCH ×2 (13:45→16:30)
[2024-02-18] MEDS: INSULIN REGULAR (HUMAN) 100 UNIT/ML SQ SCH (16:39)
[2024-02-18 22:23] VITALS: O2SAT 93
[2024-02-19] MEDS: INSULIN REGULAR (HUMAN) 100 UNIT/ML ONE (12:19)
--- NOTE | 2024-02-19 13:25 | P.DS ---
Admission Date: 01/24/24 Discharge Date: 02/19/24 Disposition: TRANSFER TO [facility] Discharge Condition: FAIR Reason for Admission: Chronic respiratory failure Brief History of Present Illness: 48-year-old female with history of chronic hypercapnic/hypoxic respiratory failure, obesity hypoventilation syndrome, COPD, hypertension, GERD, depression, morbid obesity, insulin-dependent diabetes, chronic systolic congestive heart failure was brought from [facility] to the emergency department for shortness of breath, hypoxia. At baseline, she wears home oxygen at 3 L/min and has a CPAP that she is supposed to wear at the [facility]. According to the [facility] staff patient is generally noncompliant, typically does not wear her CPAP for longer than 10 to 15 minutes at a time. She was evaluated in the emergency department and her labs were significant for hemoglobin of 9.9 hematocrit 31.2 bicarb 40 glucose 319 lactic acid 2.2 first ABG with a pH of 7.23, pCO2 98.3 patient was started on BiPAP and ABG was repeated about an hour later which showed pH of 7.21 and a pCO2 of 105. Given her worsening respiratory acidosis and lack of clinical improvement she was intubated in the emergency department. She was admitted to the ICU for acute on chronic hypercapnic/hypoxic respiratory failure. Her chest x-ray showed extensive bilateral pulmonary opacities present, greatest in the medial right lung base. Hospital Course: Patient was admitted to the medical floor and the following medical problems addressed Diagnosis Acute on chronic hypercapnic/hypoxic respiratory failure secondary to Pneumonia / acute COPD exacerbation / obesity hypoventilation syndrome acute on chronic COPD (~3L home O2) UTI, E. coli Esbl Acute on chronic diastolic CHF IDDM2 with hyperglycemia Morbid obesity constipation Stage 2 sacral pressure ulcer Functional quadriplegia secondary to morbid obesity Acute on chronic hypercapnic/hypoxic respiratory failure secondary to Pneumonia / acute COPD exacerbation / obesity hypoventilation syndrome acute on chronic COPD (~3L home O2) [facility]oxia [facility]. [facility] reports Pt generally noncompliant with CPAP. Typically wears 3L o2 We wear unable to obtain CT to further differentiate edema vs pneumonia given body habitus Intubated in ED given worsening respiratory acidosis/hypercapnic respiratory failure despite BiPAP CXR (01/23): extensive bilateral pulmonary opacities R > L. pneumonia vs pulm edema. Most recent CXR improving/stable Extubated 02/03; she was on BiPAP/hiflo, now transitioned to O2 by SC. Oxygen weaned down to 5 L by nasal cannula and patient has good oxygen saturation, greater than 92%. Dr. Mcintyre, Pulmonology assisted with management and ordered NIV for [facility] use. Patient treated with duonebs and diamox Blood cx (01/23): no growth urine cx (01/23): E. Coli ESBL sputum cx (01/29): MRSA, Acinetobacter dhiraj/haem completed 2 weeks of merrem and Vanc/bactrim (01/25-02/08) afebrile, leukocytosis resolved. Prolonged hospital stay, patient has been stable over several days. UTI, E. coli Esbl urine cx (01/23): E. coli Esbl completed 2 weeks of merrem and Vanc/bactrim (01/25-02/08) She was afebrile afebrile, leukocytosis resolved Acute on chronic diastolic CHF Patient treated with IV Lasix and transitioned to Diamox due to metabolic alkalosis. Continued diuresis with PO Diamox She was also on spironolactone. IDDM2 with hyperglycemia Accu-Checks q6h, SSI continue insulin sliding scale and metformin. Basal insulin titrated to 40 units daily. Morbid obesity Weight loss advised. Stage 2 sacral pressure ulcer continued local wound care Vital Signs/Physical Exam: Temp Pulse Resp BP Pulse Ox 97.2 F 98 H 19 130/60 93 02/19/24 08:00 02/19/24 08:10 02/19/24 08:00 02/19/24 08:10 02/19/24 08:00 General: Alert, In no apparent distress, Obese (Morbidly obese) HEENT: Mucous membr. moist/pink, Other (Oxygen by nasal cannula) Neck: JVD not distended Respiratory: Clear to auscultation bilaterally, Diminished Cardiovascular: No edema, Regular rate/rhythm, Normal S1 S2 Gastrointestinal: Soft and benign, Non-distended, No tenderness Musculoskeletal: No swelling Integumentary: No cyanosis Neurological: Other (No focal motor deficit.) Other Physical/Emotional Findings: Intubated and on mechanical ventilation with morbid obesity. At the time of my visit the patient was undergoing x-ray for placement/repositioning of her NG tube and further exam was deferred Laboratory Data at Discharge: WBC 7.40 thou/uL (4.3-10.9) 02/14/24 02:42 Hgb 10.0 g/dL (12.0-15.0) L 02/14/24 02:42 Hct 32.2 % (36.0-45.0) L 02/14/24 02:42 Plt Count 281 thou/uL (152-406) 02/14/24 02:42 PT 11.8 SECONDS (9.5-12.5) 01/24/24 14:40 INR 1.07 01/24/24 14:40 APTT 30.3 SECONDS (24.3-36.9) 01/24/24 14:40 Sodium 135 mEq/L (136-145) L 02/14/24 02:42 Potassium 4.2 mEq/L (3.5-5.1) 02/14/24 02:42 BUN 7 mg/dL (7-18) 02/14/24 02:42 Creatinine 0.52 mg/dL (0.55-1.02) L 02/14/24 02:42 Glucose 246 mg/dL (74-106) H 02/14/24 02:42 Phosphorus 2.8 mg/dL (2.5-4.9) 01/28/24 04:40 Magnesium 1.8 mg/dL (1.6-2.4) 02/13/24 04:48 Total Bilirubin 0.3 mg/dL (0.2-1.0) 02/08/24 04:38 AST 16 U/L (15-37) 02/08/24 04:38 ALT 19 U/L (13-56) 02/08/24 04:38 Alkaline Phosphatase 57 U/L (45-117) 02/08/24 04:38 Home Medications: Aspirin [Aspirin EC 81 MG] 81 mg PO DAILY 03/26/22 Atorvastatin Calcium 40 mg PO BEDTIME 03/26/22 Benztropine Mesylate 1 mg PO Q12H 03/26/22 Docusate [Colace Cap*] 100 mg PO BID 03/26/22 Ergocalciferol (Vitamin D2) [Vitamin D2] 50,000 unit PO Q7D 03/26/22 Fexofenadine HCl [Jeri Allergy] 180 mg PO DAILY 03/26/22 Folic Acid 0.4 mg PO DAILY 03/26/22 Gabapentin 300 mg PO TID 03/26/22 Metformin HCl [Glucophage*] 500 mg PO BID 03/26/22 Calcium Carbonate [Tums Regular*] 500 mg PO BID 03/15/23 Sertraline [Zoloft*] 100 mg PO DAILY 03/15/23 Albuterol Neb [Proventil 0.083% Neb Soln] 2.5 mg NEB [id number] amp 03/18/23 Insulin -Regular Human [Novolin -R*] See Protocol SQ ACHS ml 03/18/23 Arformoterol Tartrate [Brovana] 15 mcg NEB BIDRESP vial.neb 08/16/23 Ammonium Lactate 1 appl TOP BID 08/19/23 Nitroglycerin 0.4 mg SL Q5M PRN MDD 3 01/24/24 Ondansetron [Zofran (Odt)*] 4 mg PO Q8H PRN 01/24/24 Hydrocodone 5/APAP 325 [Malott 5/325*] 1 tab PO Q6H PRN #12 tab 02/19/24 Insulin Glargine,Hum.rec.anlog [Semglee] 40 unit SQ BEDTIME ml 02/19/24 Insulin Regular, Human [Novolin R] See Protocol SQ ACHS ml 02/19/24 Kaleb [Kaleb*] 1 pkt PO BID 02/19/24 Mometasone/Formoterol [Dulera 200 Mcg/5 Mcg Inhaler] 2 puff IH BID inhaler 02/19/24 Nystatin Powder [Mycostatin (Powder)*] 1 appl TOP BID bottle 02/19/24 Spironolactone [Aldactone*] 25 mg PO DAILY tab 02/19/24 acetaZOLAMIDE [Diamox*] 250 mg PO DAILY tab 02/19/24 New Medications: Hydrocodone 5/APAP 325 [Malott 5/325*] 1 tab PO Q6H PRN #12 tab PRN Reason: Pain Scale 5-7 (Moderate) Followup: NONE,NONE [Primary Care Provider] - Time spent managing pt's care (in minutes): 42
[2024-02-19 14:06] LABS: Absolute Basophils 0.1 K/uL (0-0.5); Absolute Eosinophils 0.5 K/uL (0-0.5); Absolute Lymphocytes (CBC) 1.8 K/uL (0.7-4.9); Absolute Monocytes 0.4 K/uL (0.1-1.3); Absolute Neutrophil 4.4 K/uL (1.8-8.0); Basophils % 1.3 % (0-1.3); Eosinophils % 6.5 % (0-4.4); Hematocrit 32.6 % (36.0-45.0); Hemoglobin 10.3 g/dL (12.0-15.0); Lymphocytes % 25.2 % (15.3-44.8); MCH 29.1 pg (27.0-35.0); MCHC 31.5 g/dL (32.0-36.0); MCV 92.2 fL (80-100); MPV 8.2 fL (7.6-11.3); Monocytes % 5.6 % (3.3-12.3); Neutrophils % 61.4 % (41.7-73.7); Platelets 235 thou/uL (152-406); RBC Red Blood Cell Count 3.54 M/uL (3.86-4.86); Red Cell Distribution Width 18.4 % (12.1-15.2)
[2024-02-19 14:19] LABS: Anion Gap 4.7 mEq/L (5.0-15.0); Potassium 3.7 mEq/L (3.5-5.1)
[2024-02-19] MEDS ORDERED: GABAPENTIN 300 MG CAP PO ONE (14:44)
[2024-02-19] MEDS: GABAPENTIN 300 MG CAP PO ONE (14:53)
[2024-02-19] MEDS: POTASSIUM CL SA 10 MEQ TAB PO ONE (14:54)
[2024-02-19 18:33] VITALS: BP 142/61; TEMP 97.6
== END 2024-02-19 18:42 | DRG 207 ==
LOC: ER 11:20 → ERHOLD 14:48 → 3RD-ICU 15:35 → 2ND 02-10 13:30
PROVIDERS: ADMIT Hospitalist; ATTEND Internal Medicine
PROC: 5A1955Z Respiratory Ventilation, Greater than 96 Consecutive Hours (ICD-10-PCS; principal; 2024-01-24)
PROC: 0BH17EZ Insertion of Endotracheal Airway into Trachea, Via Natural or Artificial Opening (ICD-10-PCS; 2024-01-24)
PROC: 4A033R1 Measurement of Arterial Saturation, Peripheral, Percutaneous Approach (ICD-10-PCS; 2024-01-24)
PROC: 0DH67UZ Insertion of Feeding Device into Stomach, Via Natural or Artificial Opening (ICD-10-PCS; 2024-02-01)
PROC: 5A09557 Assistance with Respiratory Ventilation, Greater than 96 Consecutive Hours, Continuous Positive Airway Pressure (ICD-10-PCS; 2024-02-03)
PROC: 5A0955A Assistance with Respiratory Ventilation, Greater than 96 Consecutive Hours, High Flow/Velocity Cannula (ICD-10-PCS; 2024-02-12)
PROC: 3E0436Z Introduction of Nutritional Substance into Central Vein, Percutaneous Approach (ICD-10-PCS; 2024-02-12)
DX: J96.21 Acute and chronic respiratory failure with hypoxia (principal); I50.23 Acute on chronic systolic (congestive) heart failure; J18.9 Pneumonia, unspecified organism; Z68.45 Body mass index [BMI] 70 or greater, adult; E87.20 Acidosis, unspecified; E66.2 Morbid (severe) obesity with alveolar hypoventilation; E87.29 Other acidosis; Z16.12 Extended spectrum beta lactamase (ESBL) resistance; Z16.20 Resistance to unspecified antibiotic; J44.0 Chronic obstructive pulmonary disease with (acute) lower respiratory infection; J44.1 Chronic obstructive pulmonary disease with (acute) exacerbation; E87.3 Alkalosis; J96.22 Acute and chronic respiratory failure with hypercapnia; I11.0 Hypertensive heart disease with heart failure; E11.65 Type 2 diabetes mellitus with hyperglycemia; D64.9 Anemia, unspecified; K59.00 Constipation, unspecified; L89.152 Pressure ulcer of sacral region, stage 2; K21.9 Gastro-esophageal reflux disease without esophagitis; B96.20 Unspecified Escherichia coli [E. coli] as the cause of diseases classified elsewhere; B95.62 Methicillin resistant Staphylococcus aureus infection as the cause of diseases classified elsewhere; Z78.1 Physical restraint status; Z88.5 Allergy status to narcotic agent; Z79.4 Long term (current) use of insulin; Z88.1 Allergy status to other antibiotic agents; Z98.51 Tubal ligation status; Z79.82 Long term (current) use of aspirin; Z11.52 Encounter for screening for COVID-19; Z99.81 Dependence on supplemental oxygen; Z79.84 Long term (current) use of oral hypoglycemic drugs; Z79.899 Other long term (current) drug therapy; Z91.048 Other nonmedicinal substance allergy status; Z91.199 Patient's noncompliance with other medical treatment and regimen due to unspecified reason
CPT/HCPCS: 31500; 36415; 36600; 51702; 71045; 74018; 80048; 80053; 80202; 81001; 82805; 82947; 83605; 83735; 83880; 84100; 84484; 85025; 85027; 85610; 85730; 87040; 87070; 87077; 87086; 87088; 87186; 87205; 87804; 87811; 93005; 94002; 94003; 94010; 94640; 94660; 94760; 96365; 96366; 96375; 97110; 97161; 99285; C9113; J1120; J1650; J1815; J1940; J2185; J2250; J2405; J2704; J2920; J3010; J3475; J3480; J3535; J7040; J7605; J7613; J7644; J7799

== ENCOUNTER 2024-03-29 18:02 | Inpatient (IN) | payer OTHER ==
--- OUTSIDE RECORDS SUMMARY | 2024-03-29 18:10 | XMS REPORT | Continuity of Care Document ---
Author Name Unknown Address [address] [place] [address] 1 [phone] [place] [id number] [facility] Address [address] [facility] [address] [place] [address] Care Team Providers Care Hospitality Job Titles Name Role Phone GC_BAHC_Todd_Teresa Attending Clinician Unavailable KNOW, DOES_NOT Attending Clinician Unavailable UNKNOWN Attending Clinician Unavailable Jojo Villalpando Attending Clinician [phone] Dennis Talley Attending Clinician [phone] GC_BAHC_Spanglpj_Grant Attending Clinician Unavailab PILAR Samuel Attending Clinician Unavailable DO ELENA DOUGLAS Attending Clinician Unavailable DR VELMA COREY Attending Clinician Unavailab mike GRESHAM, DR DUMONT Attending Clinician Unav JUSTO Andrews Attending Clinician Unavailable GERARDO_BAHC_Todd_Teresa Admitting Clinician Unavailable GC_BAHC_Spangler_G Admitting Clinician Unavailab PILAR Samuel Admitting Clinician Unavailable DO ELENA DOUGLAS Admitting Clinician Unavailable DR VELMA COREY Admitting Clinician Unavailab mike GRESHAM, DR DUMONT Admitting Clinician UnaJUSTO Evans Admitting Clinician Unavailable LAUREN PRESTON Admitting Clinician Unavailab le Payers Payer Name Policy Type Policy Number Effective Date Expirati on Date Source [facility] [place] [id number] 2023 00:00:00 [facility] [place] [id number] [place] [id number] Problems Condition Name Condition Details Condition Category Status Onset Date Resolution Date Last Treatment Date Treating Clinician Comments Source Hemorrhoid s Hemorrhoid s Problem Active 03-25 00:00: 00 [facility] Intertrigo of abdominal skin fold Intertrigo of Abdominal Skin Fold Problem Active 2024-0 6-10 00:00: 00 [facility] Productive cough Productive Cough Problem Active 3-14 00:00: 00 [facility] Stasis dermatitis of lower limb due to chronic peripheral venous hypertensi on Stasis Dermatitis of Lower Limb Due to Chronic Peripheral Venous Hypertensi on Problem Active 9-19 00:00: 00 [facility] Chronic hypercapni c respirator y failure Chronic Hypercapni c Respirator y Failure Problem Active 7-06 00:00: 00 [facility] Gastroesop hageal reflux disease Gastroesop hageal Reflux Disease Problem Active 6-14 00:00: 00 [facility] Metabolic encephalop athy Metabolic Encephalop athy Problem Active 6-13 00:00: 00 [facility] 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 Lipodermat osclerosis of Lower Limb Due to Varicose Veins of Lower Limb Problem Active 6-13 00:00: 00 [facility] Lymphedema of lower extremity Lymphedema of Lower Extremity Problem Active 6-07 00:00: 00 [facility] Extreme obesity with alveolar hypoventil ation Extreme Obesity with Alveolar Hypoventil ation Problem Active 1-25 00:00: 00 [facility] Unable to walk Unable to Walk Problem Active 1-25 00:00: 00 [facility] Type 2 diabetes mellitus with peripheral angiopathy Type 2 Diabetes Mellitus with Peripheral Angiopathy Problem Active 1-25 00:00: 00 [facility] 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 Problem Active 2021-10 1-04 00:00: 00 [facility] Lives in fpc Lives in Long-Term Problem Active 9-26 00:00: 00 [facility] Need for personal care assistance Need for Personal Care Assistance Problem Active 9-26 00:00: 00 [facility] Long-term current use of insulin Long-term Current Use of Insulin Problem Active 8-01 00:00: 00 [facility] Obstructiv e sleep [...] acid deficiency Folic Acid Deficiency Problem Active 605 00:00: 00 [facility] Vitamin D deficiency Vitamin D Deficiency Problem Active 605 00:00: 00 [facility] Peripheral angiopathy due to diabetes mellitus Peripheral Angiopathy Due to Diabetes Mellitus Problem Active 6-04 00:00: 00 [facility] Anemia of chronic disease Anemia of Chronic Disease Problem Active 511 00:00: 00 [facility] Secondary hyperaldos teronism Secondary Hyperaldos teronism Problem Active 420 00:00: 00 [facility] Body mass index 40+ - severely obese Body Mass Index 40+ - Severely Obese Problem Active 12 00:00: 00 [facility] Type 2 diabetes mellitus Type 2 Diabetes Mellitus Problem Active 4 00:00: 00 [facility] Hyperlipid emia Hyperlipid emia Problem Active 411 00:00: 00 [facility] Bipolar disorder Bipolar Disorder Problem Active 411 00:00: 00 [facility] Hypertensi ve heart disease with congestive heart failure Hypertensi ve Heart Disease with Congestive Heart Failure Problem Active 4-11 00:00: 00 [facility] Bed-ridden Bed-ridden Problem Active 4-11 00:00: 00 [facility] Hypercapni a Hypercapni a Problem Active 4-12 00:00: [address] [facility] (LUF/[facility] V/SA) Acute respirator y failure with hypoxia Acute respirator y failure with hypoxia Problem Active 4-12 00:00: [address] [facility] (LUF/LI V/SA) Venous stasis ulceration Venous stasis ulceration Problem Active 2-11 00:00: [address] [facility] (LUF/LI V/SA) Cellulitis Cellulitis Problem Active 2016-10 00:00: 00 [facility] (LUF/LI V/SA) Diabetic peripheral neuropathy Diabetic Peripheral Neuropathy Problem Active [facility] Secondary immune deficiency disorder Secondary Immune Deficiency Disorder Problem Active [facility] Hypercoagu lability state Hypercoagu lability State Problem Active [facility] Double incontinen ce Double Incontinen ce Problem Active [facility] Hypertensi ve disorder Hypertensi ve disorder Problem Active [facility]) Venous varices Venous varices Problem Active [facility] (LUF/LI V/SA) Deep venous thrombosis of lower extremity (disorder) Deep venous thrombosis of lower extremity (disorder) Problem Active [facility] V/SA) Ligation of fallopian tube Ligation of fallopian tube Problem Active [facility] (LUF/LI V/SA) Cholecyste ctomy Cholecyste ctomy Problem Active [facility] (LUF/LI V/SA) Allergies, Adverse Reactions, Alerts Allergy Name Allergy Type Status Severity Reaction(s) Onset Date Inactive Date Treating Clinician Comments Source Codeine DA Active Unknown [facility]/SA) adhesive tape DA Active Unknown [facility] (LUF/LI V/SA) Cephalex in DA Active Unknown [facility] (LUF/LI V/SA) Tylenol DA Active Unknown [facility] (LUF/LI V/SA) ADHESIVE TAPE Allergy to substanc e Active [facility] Cephalex in Allergy to substanc e Active [facility] Codeine Allergy to substanc e Active [facility] Tylenol Allergy to substanc e Active [facility] Social History Smoking Status Start Date Stop Date Source Former Smoker [facility] Never smoker [facility] (LUF/[place]/SA) Medications Ordered Medication Name Filled Medication Name Start Date Stop Date Current Medication? Ordering Clinician Indication Dosage Frequency Signature (SIG) Comments Components Source ergocalcife rol (vitamin D2) 1,250 mcg (50,000 unit) capsule ergocalcife rol (vitamin D2) 1,250 mcg (50,000 unit) capsule 03-12 00:00: 00 No ergocalcif kristen (vitamin D2) 1,250 mcg (50,000 unit) capsule [facility] Albuterol HFA Inhaler 90 mcg/actuati on Albuterol HFA Inhaler 90 mcg/actuati on Yes 1 4xD inhaled every 6 hours as needed. (as needed for shortness of breath or wheezing) [facility] (LUF/LI V/SA) aripiprazol e 10 MG Oral Tablet aripiprazol e 10 MG Oral Tablet Yes 10mg 1xD orally daily [facility] (LUF/LI V/SA) Aspirin Aspirin Yes 81mg 1xD orally daily [facility] (LUF/LI V/SA) atorvastati n 40 MG Oral Tablet atorvastati n 40 MG Oral Tablet Yes 40mg 1xD orally daily [facility] (LUF/LI V/SA) Budesonide Budesonide Yes 2 2xD inha led 2 times per day [facility] (LUF/LI V/SA) Clindamycin 300 MG Oral Capsule Clindamycin 300 MG Oral Capsule Yes 300mg 4xD orally 4 times per day [facility] (LUF/LI V/SA) lasix lasix Yes 80 1xD orally daily [facility] (LUF/LI V/SA) Lisinopril 5 MG Oral Tablet Lisinopril 5 MG Oral Tablet Yes 5mg 1xD orally daily [facility] (LUF/LI V/SA) Metformin hydrochlori de 500 MG Oral Tablet Metformin hydrochlori de 500 MG Oral Tablet Yes 500mg 2xD orally 2 times per day [facility] (LUF/LI V/SA) predniSONE 10 mg predniSONE 10 mg Yes 1 orally per package directions (2 pills a day for 1 day then 1 pill a day for 1 day then 1/2 pill a day for 1 day and then stop) [facility] (LUF/LI V/SA) acetazolami de 250 mg tablet Take 1 tablet every day by oral route. acetazolami de 250 mg tablet Take 1 tablet every day by oral route. No 1 Q1D acetazolam edmond 250 mg tablet Take 1 tablet every day by oral route. [facility] Ag[employer] albuterol sulfate 2.5 mg/3 mL (0.083 %) [...] 1 tablet every day by oral route. [facility] atorvastati n 40 mg tablet Take 1 tablet every day by oral route at bedtime for 30 days. atorvastati n 40 mg tablet Take 1 tablet every day by oral route at bedtime for 30 days. No atorvastat in 40 mg tablet Take 1 tablet every day by oral route at bedtime for 30 days. [facility] Colace 100 mg capsule Take 1 capsule every day by oral route. Colace 100 mg capsule Take 1 capsule every day by oral route. No 1capsul e(s) Q1D Colace 100 mg capsule Take 1 capsule every day by oral route. [facility] ferrous sulfate 324 mg (65 mg iron) tablet,kit yed release Take 1 tablet every day by oral route. ferrous sulfate 324 mg (65 mg iron) tablet,kit yed release Take 1 tablet every day by oral route. No 1 Q1D ferrous sulfate 324 mg (65 mg iron) tablet,del ayed release Take 1 tablet every day by oral route. [facility] folic acid 400 mcg tablet Take 1 tablet every day by oral route. folic acid 400 mcg tablet Take 1 tablet every day by oral route. No 1 Q1D folic acid 400 mcg tablet Take 1 tablet every day by oral route. [facility] gabapentin 300 mg capsule Take 1 capsule 3 times a day by oral route for 30 days. gabapentin 300 mg capsule Take 1 capsule 3 times a day by oral route for 30 days. No gabapentin 300 mg capsule Take 1 capsule 3 times a day by oral route for 30 days. [facility] lactulose 10 gram/15 mL oral solution lactulose 10 gram/15 mL oral solution No lactulose 10 gram/15 mL oral solution [facility] lidocaine 5 % topical patch lidocaine 5 % topical patch No lidocaine 5 % topical patch [facility] metformin 500 mg tablet Take 1 tablet twice a day by oral route for 30 days. metformin 500 mg tablet Take 1 tablet twice a day by oral route for 30 days. No metformin 500 mg tablet Take 1 tablet twice a day by oral route for 30 days. [facility] nitroglycer in 0.4 mg sublingual tablet [...] 5 MINUTES WITH MAX OF 3 DOSES. [facility] Novolin R FlexPen 100 unit/mL (3 mL) subcutaneou s insulin pen per sliding scale Novolin R FlexPen 100 unit/mL (3 mL) subcutaneou s insulin pen per sliding scale No Novolin R FlexPen 100 unit/mL (3 mL) subcutaneo us insulin pen per sliding scale [facility] ondansetron HCl 4 mg tablet ondansetron HCl 4 mg tablet No ondansetro n HCl 4 mg tablet [facility] sertraline 100 mg tablet Take 1 tablet every day by oral route for 30 days. sertraline 100 mg tablet Take 1 tablet every day by oral route for 30 days. No sertraline 100 mg tablet Take 1 tablet every day by oral route for 30 days. [facility] spironolact one 25 mg tablet Take 1 tablet every day by oral route. spironolact one 25 mg tablet Take 1 tablet every day by oral route. No 1 Q1D spironolac tone 25 mg tablet Take 1 tablet every day by oral route. [facility] Tums Extra Strength Smoothies 300 mg (as carb 750 mg) chewable tablet Take 1 tablet twice a day by oral route. Tums Extra Strength Smoothies 300 mg (as carb 750 mg) chewable tablet Take 1 tablet twice a day by oral route. No 1 BID Tums Extra Strength Smoothies 300 mg (as carb 750 mg) chewable tablet Take 1 tablet twice a day by oral route. [facility] zinc oxide topical ointment Apply to affected skin TID zinc oxide topical ointment Apply to affected skin TID No zinc oxide topical ointment Apply to affected skin TID [facility] arformotero l 15 mcg/2 mL solution for nebulizatio n Inhale 2 mL twice a day by inhalation route. arformotero l 15 mcg/2 mL solution for nebulizatio n Inhale 2 mL twice a day by inhalation route. No arformoter ol 15 mcg/2 mL solution for nebulizati on Inhale 2 mL twice a day by inhalation route. [facility] Dulera 200 mcg-5 mcg/actuati on HFA aerosol inhaler Inhale 2 puffs twice a day by inhalation route. Dulera 200 mcg-5 mcg/actuati on HFA aerosol inhaler Inhale 2 puffs twice a day by inhalation route. No 2puff(s ) BID Dulera 200 mcg-5 mcg/actuat ion HFA aerosol inhaler Inhale 2 puffs twice a day by inhalation route. [facility] Nystop 100,000 unit/gram topical powder Nystop 100,000 unit/gram topical powder No Nystop 100,000 unit/gram topical powder [facility] insulin glargine (U-100) 100 unit/mL (3 mL) subcutaneou s pen Inject 45 units every day by subcutaneou s route. insulin glargine (U-100) 100 unit/mL (3 mL) subcutaneou s pen Inject 45 units every day by subcutaneou s route. No 45unit( s) Q1D insulin glargine (U-100) 100 unit/mL (3 mL) subcutaneo us pen Inject 45 units every day by subcutaneo us route. [facility] Lantus U-100 Insulin 100 unit/mL subcutaneou s solution Lantus U-100 Insulin 100 unit/mL subcutaneou s solution No Lantus U-100 Insulin 100 unit/mL subcutaneo us solution [facility] Immunizations Ordered Immunization Name Filled Immunization Name Date Status Comments Source influenza, unspecified formulation influenza, unspecified formulation Unknown Completed [facility] pneumococcal polysaccharide PPV23 pneumococcal polysaccharide PPV[address] [facility] influenza, injectable, quadrivalent influenza, injectable, quadrivalent Unknown Completed [facility] COVID-19 (SARS-COV-2) vaccine, unspecified COVID-19 (SARS-COV-2) vaccine, unspecified Unknown Completed [facility] Vital Signs Vital Name Observation Time Observation Value Comments S ource Height 2024-03-20 00:00:00 66 [in_i] [facility] BP Systolic 2024-03-20 00:00:00 102 mm[Hg] [facility] BMI (Body Mass Index) 2024-03-20 00:00:00 68.1 kg/m2 [facility] Body Weight 2024-03-20 00:00:00 6754 [oz_av] [facility] BP Diastolic 2024-03-20 00:00:00 65 mm[Hg] [facility] Height 2024-03-13 00:00:00 66 [in_i] [facility] BP Diastolic 2024-03-13 00:00:00 55 mm[Hg] [facility] BP Systolic 2024-03-13 00:00:00 112 mm[Hg] [facility] BMI (Body Mass Index) 2024-03-13 00:00:00 68 kg/m2 [facility] Body Weight 2024-03-13 00:00:00 6736 [oz_av] [facility] Height 2024-02-29 00:00:00 66 [in_i] [facility] BP Systolic 2024-02-29 00:00:00 118 mm[Hg] [facility] Body Weight 2024-02-29 00:00:00 6736 [oz_av] [facility] BP Diastolic 2024-02-29 00:00:00 56 mm[Hg] [facility] BMI (Body Mass Index) 2024-02-29 00:00:00 68 kg/m2 [facility] BMI (Body Mass Index) 2024-02-26 00:00:00 68 kg/m2 [facility] Body Weight 2024-02-26 00:00:00 6736 [oz_av] [facility] Height 2024-02-26 00:00:00 66 [in_i] [facility] BP Diastolic 2024-02-26 00:00:00 71 mm[Hg] [facility] BP Systolic 2024-02-26 00:00:00 123 mm[Hg] [facility] BP Systolic 2024-02-23 00:00:00 118 mm[Hg] [facility] Height 2024-02-23 00:00:00 66 [in_i] [facility] Body Weight 2024-02-23 00:00:00 7030 [oz_av] [facility] BP Diastolic 2024-02-23 00:00:00 56 mm[Hg] [facility] BMI (Body Mass Index) 2024-02-23 00:00:00 70.9 kg/m2 [facility] Body Weight 2023-12-29 00:00:00 7200 [oz_av] [facility] Height 2023-12-29 00:00:00 66 [in_i] [facility] BP Diastolic 2023-12-29 00:00:00 55 mm[Hg] [facility] BP Systolic 2023-12-29 00:00:00 112 mm[Hg] [facility] BMI (Body Mass Index) 2023-12-29 00:00:00 72.6 kg/m2 [facility] Height 2023-12-28 00:00:00 66 [in_i] [facility] [...] (Body Mass Index) 2023-12-12 00:00:00 72.6 kg/m2 [facility] Height 2023-12-12 00:00:00 66 [in_i] [facility] [...] (Body Mass Index) 2023-11-24 00:00:00 72.2 kg/m2 [facility] Height 2023-11-24 00:00:00 66 [in_i] [facility] [...] KG Body Temperature 2020-02-27 12:35:00 98 [degF] [facility] (LUF/J[place]NSON/SA) Pulse Rate 2020-02-27 12:35:00 94 /min [facility] S t [facility] (LUF/J[place]ON/SA) Respiratory Rate 2020-02-27 12:35:00 18 /min [facility] (LUF/J[place]ON/SA) O2% BldC Oximetry 2020-02-27 12:35:00 97 % [facility] (LUF/J[place]NSON/SA) BP Systolic 2020-02-27 12:35:00 124 mm[Hg] [facility] (LUF/J[place]NSON/SA) BP Diastolic 2020-02-27 12:35:00 80 mm[Hg] [facility] (LUF/J[place]NSON/SA) Height 2020-02-27 12:35:00 66 [in_i] [facility] S t [facility] (LUF/J[place]NSON/SA) Weight 2020-02-27 12:35:00 594 [lb_av] [facility] (LUF/J[place]NSON/SA) BMI (Body Mass Index) 2020-02-27 12:35:00 96.6 kg/m2 [facility] (LUF/J[place]NSON/SA) Pulse Rate 2020-01-31 15:21:00 91 /min [facility] S [facility] (LUF/J[place]NSON/SA) Respiratory Rate 2020-01-31 15:21:00 17 /min [facility] (LUF/[place]ON/SA) O2% BldC Oximetry 2020-01-31 15:21:00 93 % [facility] (LUF/[place]ON/SA) BP Systolic 2020-01-31 12:34:00 126 mm[Hg] [facility] (LUF/[place]ON/SA) BP Diastolic 2020-01-31 12:34:00 72 mm[Hg] [facility] (LUF/[place]/SA) Body Temperature 2020-01-31 12:30:00 96.2 [degF] [facility] (LUF/[place]ON/SA) Weight 2020-01-31 05:13:00 241 kg [facility] S t [facility] (LUF/[place]ON/SA) Height 2020-01-26 04:45:00 69 [in_i] [facility] S t [facility] (LUF/J[place]ON/SA) Body Temperature 2020-01-04 18:00:00 98 [degF] [facility] (LUF/[place]/SA) Pulse Rate 2020-01-04 18:00:00 70 /min [facility] S t [facility] (LUF/J[place]NSON/SA) Respiratory Rate 2020-01-04 18:00:00 17 /min [facility] (LUF/[place]ON/SA) O2% BldC Oximetry 2020-01-04 18:00:00 98 % [facility] (LUF/[place]ON/SA) BP Systolic 2020-01-04 18:00:00 93 mm[Hg] [facility] (LUF/[place]ON/SA) BP Diastolic 2020-01-04 18:00:00 53 mm[Hg] [facility] (LUF/[place]ON/SA) Height 2020-01-04 13:35:00 69 [in_i] [facility] S t [facility] (LUF/J[place]NSON/SA) Weight 2020-01-04 13:35:00 500 [lb_av] [facility] (LUF/J[place]NSON/SA) BMI (Body Mass Index) 2020-01-04 13:35:00 74 kg/m2 [facility] (LUF/J[place]ON/SA) Pulse Rate 2019-11-26 16:18:00 79 /min [facility] Norman subramanian [facility] (LUF/J[place]NSON/SA) Respiratory Rate 2019-11-26 16:18:00 19 /min [facility] (LUF/[place]ON/SA) O2% BldC Oximetry 2019-11-26 16:18:00 97 % [facility] (LUF/[place]ON/SA) BP Systolic 2019-11-26 16:18:00 104 mm[Hg] [facility] (LUF/J[place]NSON/SA) BP Diastolic 2019-11-26 16:18:00 69 mm[Hg] [facility] (LUF/J[place]NSON/SA) Body Temperature 2019-11-26 14:09:00 98.9 [degF] [facility] (LUF/J[place]NSON/SA) Height 2019-11-26 14:09:00 69 [in_i] [facility] Norman [facility] (LUF/J[place]NSON/SA) Weight 2019-11-26 14:09:00 227 kg [facility] (LUF/JOHNSON/SA) BMI (Body Mass Index) 2019-11-26 14:09:00 74.1 kg/m2 [facility] (LUF/J[place]NSON/SA) Respiratory Rate 2017-09-15 17:59:00 19 /min [facility] (LUF/JOHNSON/SA) BP Systolic 2017-09-15 17:59:00 139 mm[Hg] [facility] (LUF/JOHNSON/SA) BP Diastolic 2017-09-15 17:59:00 85 mm[Hg] [facility] (LUF/JOHNSON/SA) Body Temperature 2017-09-15 16:28:00 98.6 F [facility] (F/JOHNSON/SA) O2% BldC Oximetry 2017-09-15 16:28:00 95 % [facility] (F/JOHNSON/SA) Height 2017-09-15 16:28:00 69 in [facility] (LUF/JOHNSON/SA) Weight Measured 2017-09-15 16:28:00 405 lbs [facility] (LUF/J[place]NSON/SA) BMI (Body Mass Index) 2017-09-15 16:28:00 59.9 [facility] (F/JOHNSON/SA) Procedures Procedure Date / Time Performed Performing Clinician Source ASST W/RESP VENT 24-96 CON HR CPAP 2020-01-26 00:00:00 [facility] (F/JOHNSON/SA) Tubal Ligation [facility] Chole[facility] Encounters Start Date/Time End Date/Time Encounter Type Admission Type Attending Clinicians Care Facility Care Department Encounter ID Source 2024-03-20 00:00:00 2024-03-20 00:00:00 RUPINDER Watts: [address] [place] [id number] , Ph. [facility] - GC_BAHC_Lak e [facility] [id number] [facility] 2024-03-13 00:00:00 2024-03-13 00:00:00 RUPINDER Watts: [address] [place] [phone] , Ph. [facility] - GC_BAHC_Lak [facility] [id number] [facility] 2024-03-06 00:00:00 2024-03-06 00:00:00 RUPINDER Watts: [address] [place] [phone] , Ph. [facility] - GC_BAHC_Lak [facility] [id number] [facility] 2024-02-29 00:00:00 2024-02-29 00:00:00 Dennis Talley MD: [address] [place] [phone] , Ph. [facility] GC_BAHC_Lak [facility] [id number] [facility] 2024-02-26 00:00:00 2024-02-26 00:00:00 RUPINDER Watts: [address] [place] [phone] , Ph. [facility] - GC_BAHC_Lak [facility] [id number] [facility] 2024-02-23 00:00:00 2024-02-23 00:00:00 RUPINDER Watts: [address] [place] [phone] , Ph. [facility] [id number] [facility] 2024-01-23 00:00:00 2024-01-23 00:00:00 Outpatient GC_BAHC_Tod d_J [facility] [id number] [facility] 2023-12-29 00:00:00 2023-12-29 00:00:00 RUPINDER Watts: [address] [place] [phone] , Ph. [facility] [id number] [facility] 2023-12-29 00:00:00 2023-12-29 00:00:00 RUPINDER Watts: [address] [place] [phone] , Ph. [facility] [id number] [facility] 2023-12-28 00:00:00 2023-12-28 00:00:00 Dennis Talley MD: [address] [place] [phone] , Ph. [facility] [id number] [facility] 2023-12-28 00:00:00 2023-12-28 00:00:00 Dennis Talley MD: [address] [place], [place] [phone] , Ph. [facility] [id number] [facility] 2023-12-21 00:00:00 2023-12-21 00:00:00 Outpatient GC_BAHC_Tod d_J PRIV PRIV [id number] [facility] 2023-12-14 00:00:00 2023-12-14 00:00:00 Outpatient GC_BAHC_Tod d_J [facility] PRIV [id number] [facility] 2023-12-12 00:00:00 2023-12-12 00:00:00 RUPINDER Watts: [address] [place] [phone] , Ph. [facility] [id number] [facility] 2023-12-12 00:00:00 2023-12-12 00:00:00 RUPINDER Watts: [address] [place] [phone] , Ph. [facility] [id number] [facility] 2023-12-08 00:00:00 2023-12-08 00:00:00 Jojo Villalpando PA: [address] [place] [phone] , Ph. [facility] [id number] [facility] 2023-12-08 00:00:00 2023-12-08 00:00:00 Jojo Villalpando PA: [address] [place] [phone] , Ph. [facility] [id number] [facility] 2023-11-25 00:00:00 2023-11-25 00:00:00 Outpatient GC_BAHC_Tod d_J [facility] [id number] [facility] 2023-11-24 00:00:00 2023-11-24 00:00:00 RUPINDER Watts: [address] [place] [phone] , Ph. [facility] [id number] [facility] 2023-11-22 00:00:00 2023-11-22 00:00:00 Outpatient GC_BAHC_Tod d_J [facility] [id number] [facility] 2023-11-18 00:00:00 2023-11-18 00:00:00 Outpatient GC_BAHC_Tod d_J [facility] [id number] [facility] 2023-11-10 00:00:00 2023-11-10 00:00:00 Outpatient GC_BAHC_Tod d_J [facility] PRIV [id number] [facility] 2023-10-31 00:00:00 2023-10-31 00:00:00 Outpatient GC_BAHC_Tod d_J PRIV PRIV [id number] [facility] 2023-10-31 00:00:00 2023-10-31 00:00:00 RUPINDER Watts: [address] [place] [phone] , Ph. [facility] [id number] [facility] 2023-10-26 00:00:00 2023-10-26 00:00:00 Dennis Talley MD: [address] [place] [phone] , Ph. [facility] [id number] [facility] 2023-10-25 00:00:00 2023-10-25 00:00:00 Outpatient GC_BAHC_Tod d_J PRIV PRIV [id number] [facility] 2023-10-13 00:00:00 2023-10-13 00:00:00 Outpatient GC_BAHC_Tod d_J PRIV PRIV [id number] [facility] 2023-10-10 00:00:00 2023-10-10 00:00:00 Outpatient GC_BAHC_Tod d_J PRIV PRIV [id number] [facility] 2023-10-07 00:00:00 2023-10-07 00:00:00 Outpatient GC_BAHC_Tod d_J PRIV PRIV [id number] [facility] 2023-10-05 00:00:00 2023-10-05 00:00:00 Outpatient GC_BAHC_Tod d_J PRIV PRIV [id number] [facility] 2023-09-29 00:00:00 2023-09-29 00:00:00 Outpatient GC_BAHC_Tod d_J PRIV PRIV [id number] [facility] 2023-09-25 00:00:00 2023-09-25 00:00:00 Outpatient GC_BAHC_Tod d_J PRIV PRIV [id number] [facility] 2023-09-22 00:00:00 2023-09-22 00:00:00 Outpatient GC_BAHC_Tod d_J PRIV PRIV [id number] [facility] 2023-09-13 00:00:00 2023-09-13 00:00:00 Outpatient GC_BAHC_Tod d_J PRIV PRIV [id number] [facility] 2023-09-11 00:00:00 2023-09-11 00:00:00 Outpatient GC_BAHC_Tod d_J PRIV PRIV [id number] [facility] 2023-09-01 00:00:00 2023-09-01 00:00:00 Outpatient GC_BAHC_Tod d_J PRIV PRIV [id number] [facility] 2023-09-01 00:00:00 2023-09-01 00:00:00 Outpatient GC_BAHC_Tod d_J PRIV PRIV [id number] [facility] 2023-08-23 00:00:00 2023-08-23 00:00:00 Outpatient GC_BAHC_Tod d_J PRIV PRIV [id number] [facility] 2023-08-23 00:00:00 2023-08-23 00:00:00 Outpatient GC_BAHC_Tod d_J PRIV PRIV [id number] [facility] 2023-08-18 00:00:00 2023-08-18 00:00:00 Outpatient GC_BAHC_Tod d_J PRIV PRIV [id number] [facility] 2023-08-05 00:00:00 2023-08-05 00:00:00 Outpatient GC_BAHC_Tod d_J PRIV PRIV [id number] [facility] 2023-08-04 00:00:00 2023-08-04 00:00:00 Outpatient GC_BAHC_Tod d_J PRIV PRIV [id number] [facility] 2023-08-03 00:00:00 2023-08-03 00:00:00 Outpatient GC_BAHC_Tod d_J PRIV PRIV [id number] [facility] 2023-07-31 00:00:00 2023-07-31 00:00:00 Outpatient GC_BAHC_Tod d_J PRIV PRIV [id number] [facility] 2023-07-27 00:00:00 2023-07-27 00:00:00 Outpatient GC_BAHC_Tod d_J PRIV PRIV [id number] [facility] 2023-07-25 00:00:00 2023-07-25 00:00:00 Outpatient GC_BAHC_Tod d_J PRIV PRIV [id number] [facility] 2023-07-19 00:00:00 2023-07-19 00:00:00 Outpatient GC_BAHC_Tod d_J PRIV PRIV [id number] [facility] 2023-07-08 00:00:00 2023-07-08 00:00:00 Outpatient GC_BAHC_Tod d_J PRIV PRIV [id number] [facility] 2023-07-05 00:00:00 2023-07-05 00:00:00 Outpatient GC_BAHC_Tod d_J PRIV PRIV [id number] [facility] 2023-06-30 00:00:00 2023-06-30 00:00:00 Outpatient GC_BAHC_Tod d_J PRIV PRIV [id number] [facility] 2023-06-26 00:00:00 2023-06-26 00:00:00 Outpatient GC_BAHC_Tod d_J PRIV PRIV [id number] [facility] 2023-06-26 00:00:00 2023-06-26 00:00:00 Outpatient GC_BAHC_Tod d_J PRIV PRIV [id number] [facility] 2023-06-24 00:00:00 2023-06-24 00:00:00 Outpatient GC_BAHC_Tod d_J PRIV PRIV [id number] [facility] 2023-06-16 00:00:00 2023-06-16 00:00:00 Outpatient GC_BAHC_Tod d_J PRIV PRIV [id number] [facility] 2023-06-12 00:00:00 2023-06-12 00:00:00 Outpatient GC_BAHC_Tod d_J PRIV PRIV [id number] [facility] 2023-06-10 00:00:00 2023-06-10 00:00:00 Outpatient GC_BAHC_Tod d_J PRIV PRIV [id number] [facility] 2023-06-05 00:00:00 2023-06-05 00:00:00 Outpatient GC_BAHC_Tod d_J PRIV PRIV [id number] [facility] 2023-05-24 00:00:00 2023-05-24 00:00:00 Outpatient GC_BAHC_Tod d_J PRIV PRIV [id number] [facility] 2023-05-18 00:00:00 2023-05-18 00:00:00 Outpatient GC_BAHC_Tod d_J PRIV PRIV [id number] [facility] 2023-05-17 00:00:00 2023-05-17 00:00:00 Outpatient GC_BAHC_Tod d_J PRIV PRIV [id number] [facility] 2023-05-11 00:00:00 2023-05-11 00:00:00 Outpatient GC_BAHC_Tod d_J PRIV PRIV [id number] [facility] 2023-05-09 00:00:00 2023-05-09 00:00:00 Outpatient GC_BAHC_Tod d_J PRIV PRIV [id number] [facility] 2023-05-05 00:00:00 2023-05-05 00:00:00 Outpatient GC_BAHC_Tod d_J PRIV PRIV [id number] [facility] 2023-05-03 00:00:00 2023-05-03 00:00:00 Outpatient GC_BAHC_Tod d_J PRIV PRIV [id number] [facility] 2023-04-25 00:00:00 2023-04-25 00:00:00 Outpatient GC_BAHC_Tod d_J PRIV PRIV [id number] [facility] 2023-04-25 00:00:00 2023-04-25 00:00:00 Outpatient GC_BAHC_Tod d_J PRIV PRIV [id number] [facility] 2023-04-25 00:00:00 2023-04-25 00:00:00 Outpatient GC_BAHC_Tod d_J PRIV PRIV [id number] [facility] 2023-04-25 00:00:00 2023-04-25 00:00:00 Outpatient GC_BAHC_Tod d_J PRIV PRIV [id number] [facility] 2023-04-20 00:00:00 2023-04-20 00:00:00 Outpatient GC_BAHC_Tod d_J PRIV PRIV [id number] [facility] 2023-04-17 00:00:00 2023-04-17 00:00:00 Outpatient GC_BAHC_Tod d_J PRIV PRIV [id number] [facility] 2023-04-10 00:00:00 2023-04-10 00:00:00 Outpatient GC_BAHC_Tod d_J PRIV PRIV [id number] [facility] 2023-04-07 00:00:00 2023-04-07 00:00:00 Outpatient GC_BAHC_Tod d_J PRIV PRIV [id number] [facility] 2023-03-29 00:00:00 2023-03-29 00:00:00 Outpatient GC_BAHC_Tod d_J PRIV PRIV [id number] [facility] 2023-03-29 00:00:00 2023-03-29 00:00:00 Outpatient GC_BAHC_Tod d_J PRIV PRIV [id number] [facility] 2023-03-29 00:00:00 2023-03-29 00:00:00 Outpatient GC_BAHC_Tod d_J PRIV PRIV [id number] [facility] 2023-03-28 00:00:00 2023-03-28 00:00:00 Outpatient GC_BAHC_Tod d_J PRIV PRIV [id number] [facility] 2023-03-28 00:00:00 2023-03-28 00:00:00 Outpatient GC_BAHC_Tod d_J PRIV PRIV [id number] [facility] 2023-03-22 00:00:00 2023-03-22 00:00:00 Outpatient GC_BAHC_Tod d_J PRIV PRIV [id number] [facility] 2023-03-22 00:00:00 2023-03-22 00:00:00 Outpatient GC_BAHC_Tod d_J PRIV PRIV [id number] [facility] 2023-03-21 00:00:00 2023-03-21 00:00:00 Outpatient GC_BAHC_Tod d_J PRIV PRIV [id number] [facility] 2023-03-02 00:00:00 2023-03-02 00:00:00 Outpatient GC_BAHC_Tod d_J PRIV PRIV [id number] [facility] 2023-02-21 00:00:00 2023-02-21 00:00:00 Dennis Talley MD: [address] [place] [phone] , Ph. [facility] [id number] [facility] 2023-02-20 00:00:00 2023-02-20 00:00:00 Outpatient GC_BAHC_Tod d_J PRIV PRIV [id number] [facility] 2023-02-20 00:00:00 2023-02-20 00:00:00 Outpatient GC_BAHC_Tod d_J PRIV PRIV [id number] [facility] 2023-02-20 00:00:00 2023-02-20 00:00:00 Outpatient GC_BAHC_Tod d_J PRIV PRIV [id number] [facility] 2023-02-07 00:00:00 2023-02-07 00:00:00 RUPINDER Watts: [address] [place] [phone] , Ph. [facility] [id number] [facility] 2023-02-02 00:00:00 2023-02-02 00:00:00 Outpatient GC_BAHC_Tod d_J PRIV PRIV [id number] [facility] 2023-01-31 00:00:00 2023-01-31 00:00:00 Jojo Villalpando PA: [address] [place] [phone] , Ph. [facility] [id number] [facility] 2023-01-18 00:00:00 2023-01-18 00:00:00 RUPINDER Watts: [address] [place] [phone] , Ph. [facility] [id number] [facility] 2023-01-17 00:00:00 2023-01-17 00:00:00 Outpatient GC_BAHC_Tod d_J PRIV PRIV [id number] [facility] 2023-01-17 00:00:00 2023-01-17 00:00:00 Outpatient GC_BAHC_Tod d_J PRIV PRIV [id number] [facility] 2023-01-17 00:00:00 2023-01-17 00:00:00 Outpatient GC_BAHC_Tod d_J PRIV PRIV [id number] [facility] 2022-12-31 00:00:00 2022-12-31 00:00:00 Outpatient GC_BAHC_Tod d_J PRIV PRIV [id number] [facility] 2022-12-16 00:00:00 2022-12-16 00:00:00 Outpatient GC_BAHC_Tod d_J PRIV PRIV [id number] [facility] 2022-12-14 00:00:00 2022-12-14 00:00:00 RUPINDER Watts: [address] [place] [phone] , Ph. [facility] [id number] [facility] 2022-12-09 00:00:00 2022-12-09 00:00:00 Outpatient GC_BAHC_Tod d_J PRIV PRIV [id number] [facility] 2022-12-09 00:00:00 2022-12-09 00:00:00 Outpatient GC_BAHC_Tod d_J PRIV PRIV [id number] [facility] 2022-12-09 00:00:00 2022-12-09 00:00:00 Jojo Villalpando PA: [address] [place] [phone] , Ph. [facility] [id number] [facility] 2022-11-15 00:00:00 2022-11-15 00:00:00 Outpatient GC_BAHC_Tod d_J PRIV PRIV [id number] [facility] 2022-11-08 00:00:00 2022-11-08 00:00:00 Outpatient GC_BAHC_Tod d_J PRIV PRIV [id number] [facility] 2022-11-07 00:00:00 2022-11-07 00:00:00 Outpatient GC_BAHC_Tod d_J PRIV PRIV [id number] [facility] 2022-11-04 00:00:00 2022-11-04 00:00:00 Outpatient GC_BAHC_Tod d_J PRIV PRIV [id number] [facility] 2022-10-26 00:00:00 2022-10-26 00:00:00 Outpatient GC_BAHC_Tod d_J PRIV PRIV [id number] [facility] 2022-10-26 00:00:00 2022-10-26 00:00:00 RUPINDER Watts: [address] [place] [id number] , Ph. [facility] [id number] [facility] 2022-10-25 00:00:00 2022-10-25 00:00:00 Outpatient GC_BAHC_Tod d_J PRIV PRIV [id number] [facility] 2022-10-25 00:00:00 2022-10-25 00:00:00 Outpatient GC_BAHC_Tod d_J PRIV PRIV [id number] [facility] 2022-10-25 00:00:00 2022-10-25 00:00:00 Dennis Talley MD: [address] [place] [phone] , Ph. [facility] [id number] [facility] 2022-10-18 00:00:00 2022-10-18 00:00:00 Outpatient GC_BAHC_Tod d_J PRIV PRIV [id number] [facility] 2022-09-02 00:00:00 2022-09-02 00:00:00 Outpatient GC_BAHC_Tod d_J PRIV PRIV [id number] [facility] 2022-09-01 00:00:00 2022-09-01 00:00:00 Outpatient GC_BAHC_Tod d_J PRIV PRIV [id number] [facility] 2022-08-23 00:00:00 2022-08-23 00:00:00 RUPINDER Watts: [address] [place] [phone] , Ph. [facility] [id number] [facility] 2022-08-21 00:00:00 2022-08-21 00:00:00 Outpatient GC_BAHC_Tod d_J PRIV PRIV [id number] [facility] 2022-08-19 00:00:00 2022-08-19 00:00:00 Outpatient GC_BAHC_Tod d_J PRIV PRIV [id number] [facility] 2022-08-18 00:00:00 2022-08-18 00:00:00 Outpatient GC_BAHC_Tod d_J PRIV PRIV [id number] [facility] 2022-08-16 00:00:00 2022-08-16 00:00:00 Outpatient GC_BAHC_Tod d_J PRIV PRIV [id number] [facility] 2022-08-05 00:00:00 2022-08-05 00:00:00 Outpatient GC_BAHC_Tod d_J PRIV PRIV [id number] [facility] 2022-08-05 00:00:00 2022-08-05 00:00:00 RUPINDER Watts: [address] [place] [phone] , Ph. [facility] [id number] [facility] 2022-08-02 00:00:00 2022-08-02 00:00:00 Outpatient GC_BAHC_Tod d_J PRIV PRIV [id number] [facility] 2022-07-29 00:00:00 2022-07-29 00:00:00 Outpatient GC_BAHC_Tod d_J PRIV PRIV [id number] [facility] 2022-07-05 00:00:00 2022-07-05 00:00:00 Outpatient GC_BAHC_Tod d_J PRIV PRIV [id number] [facility] 2022-07-05 00:00:00 2022-07-05 00:00:00 RUPINDER Watts: [address] [place] [phone] , Ph. [facility] [id number] [facility] 2022-07-04 00:00:00 2022-07-04 00:00:00 Dennis Talley MD: [address] [place] [phone] , Ph. [facility] [id number] [facility] 2022-06-22 00:00:00 2022-06-22 00:00:00 Outpatient GC_BAHC_Tod d_J PRIV PRIV [id number] [facility] 2022-06-02 00:00:00 2022-06-02 00:00:00 Outpatient GC_BAHC_Tod d_J PRIV PRIV [id number] [facility] 2022-05-24 00:00:00 2022-05-24 00:00:00 Outpatient GC_BAHC_Tod d_J PRIV PRIV [id number] [facility] 2022-05-24 00:00:00 2022-05-24 00:00:00 RUPINDER Watts: [address] [place] [phone] , Ph. [facility] [id number] [facility] 2022-05-24 00:00:00 2022-05-24 00:00:00 Outpatient Jojo Villalpando [facility] [id number] 2022-05-16 00:00:00 2022-05-16 00:00:00 Outpatient GC_BAHC_Tod d_J PRIV PRIV [id number] [facility] 2022-05-12 00:00:00 2022-05-12 00:00:00 Outpatient GC_BAHC_Tod d_J PRIV PRIV [id number] [facility] 2022-05-12 00:00:00 2022-05-12 00:00:00 Outpatient Dennis Talley [facility] [id number] 2022-05-12 00:00:00 2022-05-12 00:00:00 Dennis Talley MD: [address] [place] [phone] , Ph. [facility] [id number] [facility] 2022-05-03 11:55:00 2022-05-03 11:55:00 Outpatient GC_BAHC_Tod d_J PRIV PRIV [id number] [facility] 2022-04-26 01:36:00 2022-04-26 01:36:00 Outpatient GC_BAHC_Tod d_J PRIV PRIV [id number] [facility] 2022-04-26 00:00:00 2022-04-26 00:00:00 Outpatient Jojo Villalpando [facility] [id number] 2022-04-26 00:00:00 2022-04-26 00:00:00 RUPINDER Watts: [address] [place] [phone] , Ph. [facility] [id number] [facility] 2022-04-24 11:00:00 2022-04-24 11:00:00 Outpatient GC_BAHC_Tod d_J PRIV PRIV [id number] [facility] 2022-04-22 10:51:00 2022-04-22 10:51:00 Outpatient GC_BAHC_Tod d_J PRIV PRIV [id number] [facility] 2022-04-21 11:47:00 2022-04-21 11:47:00 Outpatient GC_BAHC_Tod d_J PRIV PRIV [id number] [facility] 2022-04-15 04:12:00 2022-04-15 04:12:00 Outpatient GC_BAHC_Tod d_J PRIV PRIV [id number] [facility] 2022-04-15 00:00:00 2022-04-15 00:00:00 RUPINDER Watts: [address] [place] [id number] , Ph. [facility] [id number] [facility] 2022-04-15 00:00:00 2022-04-15 00:00:00 Outpatient Jojo Villalpando [facility] [id number] 2022-04-13 09:13:00 2022-04-13 09:13:00 Outpatient GC_BAHC_Tod d_J PRIV PRIV [id number] [facility] 2022-04-13 00:00:00 2022-04-13 00:00:00 Outpatient Jojo Villalpando [facility] [id number] 2022-04-13 00:00:00 2022-04-13 00:00:00 RUPINDER Watts: [address] [place] [id number] , Ph. [facility] [id number] [facility] 2022-04-10 10:44:00 2022-04-10 10:44:00 Outpatient GC_BAHC_Tod d_J PRIV PRIV [id number] [facility] 2022-04-05 04:56:00 2022-04-05 04:56:00 Outpatient GC_BAHC_Tod d_J PRIV PRIV [id number] [facility] 2022-04-05 00:00:00 2022-04-05 00:00:00 RUPINDER Watts: [address] [place] [phone] , Ph. [facility] GC_BAHC_[facility] [id number] [facility] 2022-04-05 00:00:00 2022-04-05 00:00:00 Outpatient KwasiJojo [facility] [id number] 2022-04-01 06:30:00 2022-04-01 06:30:00 Outpatient GC_BAHC_Tod d_J PRIV PRIV [id number] [facility] 2022-04-01 00:00:00 2022-04-01 00:00:00 Outpatient Jojo Villalpando [facility] [id number] 2022-04-01 00:00:00 2022-04-01 00:00:00 Jojo Villalpando PA: [address] [place] [phone] , Ph. [facility] GC_BAHC_[facility] [id number] [facility] 2022-03-20 10:40:00 2022-03-20 10:40:00 Outpatient GC_BAHC_Tod d_J PRIV PRIV [id number] [facility] 2022-03-19 10:41:00 2022-03-19 10:41:00 Outpatient GC_BAHC_Tod d_J PRIV PRIV [id number] [facility] 2022-03-17 02:04:00 2022-03-17 02:04:00 Outpatient GC_BAHC_Tod d_J PRIV PRIV [id number] [facility] 2022-03-17 00:00:00 2022-03-17 00:00:00 Outpatient Dennis Talley [facility] [id number] 00:00:00 2022-03-17 00:00:00 Dennis Talley MD: [address] [place] [phone] , Ph. [facility] GC_BAHC_[facility] [id number] [facility] 2022-03-11 12:36:00 2022-03-11 12:36:00 Outpatient GC_BAHC_Tod d_J [facility] [id number] [facility] 2022-03-11 00:00:00 2022-03-11 00:00:00 Outpatient Jojo Villalpando [facility] PRIV [id number] 2022-03-11 00:00:00 2022-03-11 00:00:00 Jojo Villalpando PA: [address] [place] [phone] , Ph. [facility] GC_BAHC_[facility] [id number] [facility] 2022-02-23 10:53:00 2022-02-23 10:53:00 Outpatient GC_BAHC_Tod d_J PRIV PRIV [id number] [facility] 2022-02-15 07:51:00 2022-02-15 07:51:00 Outpatient GC_BAHC_Tod d_J PRIV PRIV [id number] [facility] [facility] 2022-02-15 00:00:00 2022-02-15 00:00:00 Outpatient Jojo Villalpando [facility] [id number] 2022-02-15 00:00:00 2022-02-15 00:00:00 RUPINDER Watts: [address] [place] [phone] , Ph. [facility] - GC_BAHC_[facility] [id number] [facility] 2022-02-11 08:21:00 2022-02-11 08:21:00 Outpatient GC_BAHC_Tod d_J PRIV PRIV [id number] [facility] 2022-02-08 08:40:00 2022-02-08 08:40:00 Outpatient GC_BAHC_Tod d_J PRIV PRIV [id number] [facility] 2022-02-03 01:01:00 2022-02-03 01:01:00 Outpatient GC_BAHC_Tod d_J PRIV PRIV [id number] [facility] 2022-02-02 12:52:00 2022-02-02 12:52:00 Outpatient GC_BAHC_Tod d_J PRIV PRIV [id number] [facility] 2022-02-01 09:12:00 2022-02-01 09:12:00 Outpatient GC_BAHC_Tod d_J PRIV PRIV [id number] [facility] 2022-01-27 11:30:00 2022-01-27 11:30:00 Outpatient GC_BAHC_Tod d_J PRIV PRIV [id number] [facility] 2022-01-27 00:00:00 2022-01-27 00:00:00 Outpatient Dennis Talley [facility] [id number] 2022-01-27 00:00:00 2022-01-27 00:00:00 Dennis Talley MD: José [place] [address] , Ph. [facility] [id number] [facility] 2022-01-27 00:00:00 2022-01-27 00:00:00 Outpatient Dennis Talley [facility] [id number] 2022-01-25 02:06:00 2022-01-25 02:06:00 Outpatient GC_BAHC_Tod d_J [facility] PRIV [id number] [facility] 2022-01-25 00:00:00 2022-01-25 00:00:00 Outpatient Jojo Villalpando [facility] [id number] 2022-01-25 00:00:00 2022-01-25 00:00:00 RUPINDER Watts: [address] [place] [address] , Ph. [facility] [id number] [facility] 2022-01-25 00:00:00 2022-01-25 00:00:00 Outpatient Jojo Villalpando PRIV PRIV [id number] 2022-01-24 03:10:00 2022-01-24 03:10:00 Outpatient GC_BAHC_Tod d_J PRIV PRIV [id number] [facility] 2022-01-21 05:16:00 2022-01-21 05:16:00 Outpatient GC_BAHC_Spa ngler_G PRIV PRIV [id number] [facility] 2020-02-27 12:33:00 2020-02-27 14:29:00 OTH SYMPTOMS SIGNS INVLV SYSTEM [facility] N, [address], [place] [address] [facility] [id number] [facility] (LUF/LI V/SA) 2020-01-26 03:15:00 2020-01-31 15:55:00 HTN HEART DISEASE W/HEART FAIL E PILAR GOMEZ [facility], [address], [place] [address] [facility] [id number] [facility] (LUF/LI V/SA) 2020-01-04 22:01:00 2020-01-04 23:59:00 Inpatient [facility], [address] [place] [address] [facility] [id number] [facility] (LUF/LI V/SA) 2020-01-04 13:30:00 2020-01-04 18:53:00 CELLULITIS OF LEFT LOWER LIMB E ELENA DOUGLAS [facility] N, [address], [place] [address] [facility] [id number] [facility] (LUF/LI V/SA) 2019-11-26 14:08:00 2019-11-26 17:30:00 VENOUS INSUFF CHRONIC PERIPHERAL 1 VELMA COREY [facility], [address], [place] [address] [facility] [id number] [facility] (LUF/LI V/SA) 2018-11-15 14:59:00 2018-11-15 23:59:00 SHORTNESS OF BREATH 3 TIM GRESHAM [facility], [address] [place] [address] [facility] [id number] [facility] (LUF/LI V/SA) 2018-06-08 11:43:00 2018-06-08 23:59:00 COPD UNSPECIFIE D 3 JUSTO DICK [facility], [address], [place] [address] [facility] [id number] [facility] (LUF/LI V/SA) 2017-09-16 00:36:00 2017-09-16 23:59:00 Inpatient GANESH DE ANDA [facility], [address] [place] [address] [facility] [id number] [facility] (LUF/LI V/SA) 2017-09-15 16:11:00 2017-09-15 19:30:00 CELLULITIS OF RIGHT LOWER LIMB E MOHANLAUREN Austin [facility], [address], [place] [address] [facility] [id number] [facility] (LUF/LI V/SA) Results Test Description Test Time Test Comments Results Result Co mments Source BASIC METABOLIC [id number] 00:56:00* Test Item Value Reference Range Interpretation [...] calculation forGFR is based on the CKD-EPI (202) calculation. This formulais race indifferent and is the recommended formula for GFRby the National Kidney Foundation for Adults.The GFR will not calculate if the sex is unknown or if thepatient's age is <18 years. CREATININE (test code = CREAT) 0.55 mg/dL 0.44-1.03 N CALCIUM (test code = CA) 8.9 mg/dL 8.5-10.5 N CBC W/AUTO [id number] 00:45:00* Test Item Value Reference Range Interpretation [...] 0.0 x10 3/uL 0.0-0.1 N BASIC METABOLIC [id number] 23:08:00* Test Item Value Reference Range Interpretation [...] code = CA) 8.9 mg/dL 8.5-10.5 N [id number] 22:59:00* Test Item Value Reference Range Interpretation Comme nts AMMONIA (test code = AMM) 67 umol/L 11-35 H CBC W/AUTO [id number] 22:44:00* Test Item Value Reference Range Interpretation [...] Cholesterol in LDL [Mass/volume] in Serum or [id number] 00:00:00* Test Item Value Reference Range Interpretation Comme nts Cholesterol in LDL [Mass/vol ume] in Serum or Plasma (test code = 2089-1) 55 [facility] in LDL [Mass/volume] in Serum or Apsqhs8920-26-46 00:00:00* Test Item Value Reference Range Interpretation Comme nts Cholesterol in LDL [Mass/vol ume] in Serum or Plasma (test code = 2089-1) 55 [facility] MedicalCholesterol in LDL [Mass/volume] in Serum or [id number] 00:00:00* Test Item Value Reference Range Interpretation Comme nts Cholesterol in LDL [Mass/vol ume] in Serum or Plasma (test code = 2089-1) 55 [facility] MedicalCULTURE, [id number] 10:36:00Specimen: BloodCollected: 01/25/2020 23:40 Status: Final Last Updated: 01/31/2020 10:36 Culture Result (Final) (Final) No [facility] [place] [id number] 10:36:00Specimen: BloodCollected: 01/25/2020 23:40 Status: Final Last Updated: 01/31/2020 10:36 Culture Result (Final) (Final) No Growth After [facility]Bell[facility]P2020-04-16 12:41:00* Test Item Value Reference Range Interpretation [...] and management of chronic kidney failure. [facility]BMP2020-04-15 10:36:00* Test Item Value Reference Range Interpretation [...] assessment and management of chronic kidney failure. [facility] WITH AUTO [id number] 09:59:00* Test Item Value Reference Range Interpretation [...] code = IG%) 0.4 % 0.0-0.4 [facility]anoURINALYSIS WITH [id number] 06:21:00 * Test Item Value Reference Range Interpretation Comme nts Color (test code = UCOLR) Yellow Clarity (test code = UCLAR) Clear Glucose (test code = UGLUC) NEGATIVE NEGATIVE N Bilirubin (test code = UBILI) NEGATIVE NEGATIVE N Ketones (test code = UKET) TRACE NEGATIVE A Specific [place] (test code = USPGR) 1.020 1.005-1.030 A [...] = UBACT) Trace None Seen,Trace N [facility]anoBMP2020-04-14 05:47:00* Test Item Value Reference Range Interpretation [...] assessment and management of chronic kidney failure. [facility] WITH AUTO [id number] 05:46:00* Test Item Value Reference Range Interpretation [...] = IG%) 0.7 % 0.0-0.4 H [facility]anoBMP2020-04-13 04:49:00* Test Item Value Reference Range Interpretation [...] assessment and management of chronic kidney failure. [facility] WITH AUTO [id number] 04:24:00* Test Item Value Reference Range Interpretation [...] = IG%) 0.7 % 0.0-0.4 H [facility]anoTROPONIN-I Iiraiaaralnw9408-32-28 21:16:00* Test Item Value Reference Range Interpretation Comme nts Troponin-I (test code = TROP) <0.015 ng/ml 0.000-0.034 N The 99th Percent ile URL is 0.045 ng/mL for the Siemens Concord Troponin I. The Joint Society of Cardiology/[place] [employer] Cardiology (ESC/ACC) and the National [...] 24 hours after the clinical event. [facility]anoTROPONIN-I Sfxqccuyhyqu3632-51-17 13:14:00* Test Item Value Reference Range Interpretation Comme nts Troponin-I (test code = TROP) <0.015 ng/ml 0.000-0.034 N The 99th Percent ile URL is 0.045 ng/mL for the Siemens Concord Troponin I. The Joint Society of Cardiology/[place] College [employer] Cardiology (ESC/ACC) and the National [...] 24 hours after the clinical event. [facility] ShawanoLACTIC ACID [id number] 06:06:00* Test Item Value Reference Range Interpretation Comme nts LACTATE (test code = LAC) 2.8 mmol/l 0.7-2.0 HH repeat Critical values were called to Ramón Fatima RN by [id number] on 01/26/20 06:06 CDT. Results were read back by Ramón Fatima RN.[facility]anoD-DIMER [id number] 06:02:00* Test Item Value Reference Range Interpretation Comme nts D DIMER (test code = D DIM) 0.98 mg/L FEU 0.19-0.50 H METHOD CHANGE: Due to the discontinued mehodology currently in use, a change in the testing method is necessary. The Reference Ranges will change dramatically, and results are obtained by the observance of clotting activation mesured on the [employer] instruments. This same methodology is currently in [...] a low probability of thromboembolic disease. [facility]anoBMP2020-04-12 05:31:00* Test Item Value Reference Range Interpretation Comme nts Glucose (test code = GLU) 212 mg/dl [...] and management of chronic kidney failure. [facility] ShawanoTROPONIN-I Yiiziiqbnvlm6690-90-89 05:31:00* Test Item Value Reference Range Interpretation Comme nts Troponin-I (test code = TROP) <0.015 ng/ml 0.000-0.034 N The 99th Percent ile URL is 0.045 ng/mL for the Siemens Concord Troponin I. The Joint Society of Cardiology/[place] College of Cardiology (ESC/ACC) and the National [...] first 24 hours after the clinical event. [facility] WITH AUTO [id number] 05:06:00* Test Item Value Reference Range Interpretation [...] = IG%) 0.9 % 0.0-0.4 H [facility] ShawanoGLYCOSALATED [id number] 03:19:00* Test Item Value Reference Range Interpretation [...] FOR THE MEAN GLUCOSE IS NOT RELIABLE. [facility] (Ultra Sensitive)2020-01-26 02:57:00* Test Item Value Reference Range Interpretation Comme nts TSH (test code = TSH) 5.28 mIU/L 0.47-4.68 H [facility]anoXR CHEST AP/PA 1 [id number] 00:53:02 EXAMINATION: XR CHEST AP/PA 1 VIEWINDICATION: [id number]: DyspneaCOMPARISON: Chest x-ray dated November 26, 2019FINDINGS: [...] 01/26/202012:46 AMDictated By: JAIR BRANCHDate: 01/26/2020 00:46[facility] LIVINGSTONLACTIC ACID [id number] 00:25:00* Test Item Value Reference Range Interpretation Comme nts LACTATE (test code = LAC) 2.1 mmol/l 0.7-2.0 HH Critical values were called to Renetta Donato RN by [id number] on 01/26/20 00:25 CDT. Results were readback by Renetta Donato RN.[facility] ShawanoTROPONIN-I Odaybylhbukg4097-17-46 00:25:00* Test Item Value Reference Range Interpretation Comme nts Troponin-I (test code = TROP) <0.015 ng/ml 0.000-0.034 N The 99th Percent ile URL is 0.045 ng/mL for the Siemens Concord Troponin I. The Joint Society of Cardiology/[place] College of Cardiology (ESC/ACC) and the National [...] 24 hours after the clinical event. [facility] ShawanoPRO-BNP(B-Type Natriuretic Peptide)2020-01-26 00:25:00* Test Item Value Reference Range Interpretation Comme nts Pro-BNP(B-Peptide) (test code = PROBNP) 752 pg/ml 0-125 H Critical re sult called to Renetta Donato RN; result read back [facility] ShawanoCMP2020-04-12 00:23:00* Test Item Value Reference Range Interpretation [...] and management of chronic kidney failure. [facility] ShawanoABGs2020-04-11 23:51:00* Test Item Value Reference Range Interpretation [...] BGHCT) 40.5 35.0-50.0 O2Hb (test code = RGGX4QG) 92.6 % 95.0-99.0 L COHb (test code [...] BGTMNOTIFIED) 23:45 O2 Device (test code = [id number]) Nasal Cannula Instrument ID (test code = BGINSTRID) [id number] Reported By (test code = BGREPORTEDBY) LAUREN MINAYA [facility] WITH AUTO [id number] 23:49:00* Test Item Value Reference Range Interpretation [...] code = IG%) 0.7 % 0.0-0.4 H [facility], ANAEROBE [id number] 07:53:00 Specimen: BloodCollected: 01/04/2020 15:04 Status: Final Last Updated: 01/10/2020 07:52 Culture Result (Final) (Final) No [facility] [id number] 07:53:00To start 15mins after 1st cultureSpecimen: BloodCollected: 01/04/2020 15:04 Status: Final Last Updated: 01/10/2020 07:52 (1) To start 15mins after 1st culture Culture Result (Final) (Final) No Growth After 5 DaysThe[facility]anoCUKET[facility], [place]NAEROBE [id number] 07:53:00Specimen: BloodCollected: 01/04/2020 15:04 Status: Final Last Updated: 01/10/2020 07:52 Culture Result (Final) (Final) No Growth [facility] 5 DaysR[facility], [id number] 07:53:00Specimen: BloodCollected: 01/04/2020 15:04 Status: Final Last Updated: 01/10/2020 07:52 Culture Result (Final) (Final) No Growth After 5 DaysR[facility], [id number] 09:23:00MUST order Gram Stain separately WOUNDSSpecimen: WoundCollected: [...] <=0.25 S Tobramycin <=1 S Trimeth/Sulfa <=20 [facility]GRAM [id number] 07:22:00Must order gram stain separately with aerobic cultSpecimen: WoundCollected: 01/04/2020 14:25 Status: Final Last Updated: 01/06/2020 07:22 (1) Must order gram stain separately with aerobic cult Gram Stain (Final) (Final) Many RBC's Moderate Gram Negative BacilliThedacare Medical Center ShawanoXR LEG (TIB/FIB) 2 [id number] 15:32:55Right tibia/fibula radiographs-4 viewsHistory: Pain.Comparison: right ankle [...] 01/04/2020 3:26PMDictated By: ARNOLDO JOSÉate: 01/04/2020 15:26[facility] [id number] 15:30:00* Test Item Value Reference Range Interpretation [...] and management of chronic kidney failure. [facility]anoURINALYSIS WITH [id number] 15:28:00 * Test Item Value Reference Range Interpretation Comme nts Color (test code = UCOLR) Yellow Clarity (test code = UCLAR) Clear Glucose (test code = UGLUC) NEGATIVE NEGATIVE N Bilirubin (test code = UBILI) NEGATIVE NEGATIVE N Ketones (test code = UKET) NEGATIVE NEGATIVE N Specific [place] (test code = USPGR) >=1.030 1.005-1.030 A [...] = UBACT) Trace None Seen,Trace N [facility] ShawanoCB WITH AUTO [id number] 15:07:00* Test Item Value Reference Range Interpretation [...] (test code = IG%) 0.4 % 0.0-0.4 [facility] ANKLE COMP MIN 3 [id number] 16:18:18 Evaluate for gasRight ankle 3 views:History: [...] 11/26/20194:11 PMDictated By: AKASH SCHREIBERDate: 11/26/2019 16:11[facility] CHEST AP/PA 1 [id number] 16:07:03Exam: AP portable chestDATE OF EXAM: 11/26/2019 [...] Dr Akash Schreiber MD 11/26/20194:00 PMDictated By: AKASH SCHREIBERDate:11/26/2019 16:00[facility] GRASSFLATTROPONIN-I Quantitative 2019-11-26 15:37:00* Test Item Value Reference Range Interpretation Comme nts Troponin-I (test code = TROP) <0.015 ng/ml 0.000-0.034 N The 99th Percent ile URL is 0.045 ng/mL for the Siemens Concord Troponin I. The Joint Society of Cardiology/[place] College of Cardiology (ESC/ACC) and the National [...] 24 hours after the clinical event. [facility]anoPRO-BNP(B-Type Natriuretic Peptide)2019-11-26 15:37:00* Test Item Value Reference Range Interpretation Comme nts Pro-BNP(B-Peptide) (test cod e = PROBNP) 20 pg/ml 0-125 [facility] ShawanoCMP2020-02-11 15:37:00* Test Item Value Reference Range Interpretation [...] assessment and management of chronic kidney failure. [facility]-REACTIVE [id number] 15:26:00* Test Item Value Reference Range Interpretation Comme nts C REACTIVE PROTEIN (test cod e = CRP) 27.00 mg/dl 0.00-3.00 H [facility] ShawanoPREGNANCY TEST, Serum [id number] 15:24:00* Test Item Value Reference Range Interpretation Comme nts (Serum) (test code = PREGS) Negative Negative N [facility] WITH AUTO [id number] 15:00:00* Test Item Value Reference Range Interpretation [...] code = IG%) 0.3 % 0.0-0.4 [facility]anoXR CHEST 2 PA [id number] 17:10:47 Procedure: XR CHEST 2 PA LATERALOrder Date: 11/15/2018 3:11 PMOrdering Provider: DR TIM BYRNESAClinical Indication: [id number]: DyspneaComparison: 06/08/2018Findings:Cardiac size is normal.Pulmonary vasculature is normal.Mediastinal contour is normal.Aortic contour is normal.There is no consolidation or effusion.There is no mass or pneumothorax.There is no evidence of active tuberculosis.There is no skeletal abnormality.Impression: Negative PA and lateral views of the chest.This final report was electronically signed by Dr Bg Cardenas MD 11/15/20185:04 PMDictated By: BG CARDENAS.Date: 11/15/2018 17:04[facility] CHEST 2 PA [id number] 13:35:48PA and lateral chest:Exam Date: 06/08/2018Clinical Indication: COPDThe lungs are clear. Cardiac sizeis at upper limits of normal. There is novascular congestion or pleural effusion. There are no significant bonyabnormalities.Impression: No acute cardiopulmonary abnormality.This final report was electronically signed by Dr Akash Schreiber MD 06/08/20181:29 PMDictated By: AKASH SCHREIBERDate: 06/08/2018 13:35[facility] [id number] 10:29:00MUST order Gram Stain separately WOUNDSSpecimen: Leg [...] Meropenem <=0.25 S Tetracycline >=16 R Trimeth/Sulfa <=20SThe[facility]anoCUOUR [facility] [id number] 07:23:00Specimen: Urine SpecimensCollected: 09/15/2017 17:55 Status: Final Last Updated: 09/18/2017 07:23 Culture Result (Final) (Final) No Growth After 48 HoursThedacare Medical Center ShawanoGRAM [id number] 13:27:00Must order gram stain separately with aerobic cultSpecimen: Leg RightCollected: 09/15/2017 17:54 Status: Final Last Updated: 09/17/2017 13:27 (1) Must order gram stain separately with aerobic cult Gram Stain (Final) (Final) No Cells Seen Rare Gram Negative BacilliThedacare Medical Center ShawanoXR ANKLE [id number] 18:22:06EXAM: XR ANKLE 2VWS, RIGHTDATE: 09/15/2017 4:52 [...] by Dr Juan Mckinnon DO 09/15/2017 6:15PMDictated By:Tamir MCKINNONte: 09/15/2017 18:22[facility] [id number] 18:11:00* Test Item Value Reference Range Interpretation [...] assessment and management of chronic kidney failure. [facility]oggURINALYSIS WITH [id number] 18:06:00 * Test Item Value Reference Range Interpretation Comme nts Color (test code = UCOLR) Yellow Clarity (test code = UCLAR) CLEAR Glucose (test code = UGLUC) NEGATIVE NEGATIVE N Bilirubin (test code = UBILI) NEGATIVE NEGATIVE N Ketones (test code = UKET) NEGATIVE NEGATIVE N Specific [place] (test code = USPGR) 1.025 1.005-1.030 A [...] = UBACT) Trace None Seen,Trace N [facility] ShawanoPREGNANCY TEST, Urine [id number] 18:02:00* Test Item Value Reference Range Interpretation Comme nts (Urine) (test code = PREGU) Negative If a specimen is collected by a nurse, then you MUST fill out the Collected and Collected By rankin [facility] WITH AUTO [id number] 17:55:00* Test Item Value Reference Range Interpretation [...] code = IG%) 0.4 % 0.0-0.4 AUTO [facility] Notes Date/Time Note Provider Source 2020-02-27 14:29:00 [id number]/X8MTkZIuEGYbhrsz/1eVjh tVX4LPnE 5wnqED8i4SgKHKwoGztpwjW58+2062-77-69A22:29:00Dis charge Instructions 2Discharge Diagnosisfoley cathImportant InformationConsult your [...] tolerated, unrestrictedDietRegularDischarge InstructionsDischarge InstructionsDischarge Instructions 2020-02-27 (Encounter: [id number] for patient careSTLMLCHI [facility], [facility] (F/[place])6698-33-49L02:09:23 [facility] (F/[place]ON/[place]) 2020-01-31 15:55:00 [id number]nlzT6 mQxlb7pq EGxlJeectI+Z6mQHXpNbpHpl+A0241-04-58L11:55:00Dis charge InstructionsIV Removed 01/31/2020Discharge DiagnosisAcute respiratory failure with hypoxia, hypercapciaDate/Time of Follow Up Appt # 08:30Physician Name for Follow Up Appt #1Follow up with PCP (Katie Fofana) on February 07, 2020 at 8:30 am for CBC and CMP [phone]/Time of Follow Up Appt # 14:00Physician Name for Follow Up Appt #2Follow up with Dr. Antunez (client account manager) on February 18, 2020 at 2:00 pm [phone] Name, Date/Time For Follow Up Appt #3Follow up with Dr. Ortiz (milk route supervisor) in 1-2 weeks [phone] Name, Date/Time For Follow Up Appt #4Per Shannan Lundberg with Adelaide Prashanth, criteria not met for COVID-19 testing. Please call the hotline at [phone] (M-F 8 am to 4 pm) or the 24 hr hotline at [phone] if you develop high fevers, increasing shortness of breath, or worsening cough.Discharge Blood Ykwtx554Umjhrfcel Jrpxox815 kgActivity LevelAs tolerated, unrestrictedMedicationsContinue Present MedicationsPrescriptions Called [...] Instructions 2Wound / Incision CareDressings changed on 01/31/2020.[facility] Provider & Phone Number[facility] [phone] / Medical Supplies Name & Phone Number[facility] [phone] Measure / Get with the Guidelines (AMI/HF)Review [...] a current list of my medications, including jszx-nbz-mtqceqe and herbal medications (note any allergies)Bring my [...] my medicationsDischarge InstructionsDischarge InstructionsDischarge Instructions 2020-01-31 (Encounter: [id number] for patient careSTLMLCHI [facility], [facility] (F/[place])6725-93-91A78:09:22 [facility] (LUF/[place]ON/SA) 2020-01-04 18:53:00 [id number]vYTaSC APMEJpku Cy9qjfWdKfMNKtcoC96H9QJF8Q2421-95-43K90:53:00Dis charge Instructions 2Discharge DiagnosisCellulitisImportant InformationConsult your physician [...] ControlWound CareDischarge InstructionsDischarge InstructionsDischarge Instructions 2020-01-04 (Encounter: [id number] for patient [facility] ([facility]/[place])3691-36-17O74:09:22 [facility] (F/[place]ON/[place]) 2019-11-26 17:30:00 [id number]/A2HFWxC7GvaxUCKTxNmrFbmos oPLQkwEH g/CgENYecZhcdAQ3XJxiAjhhns9520-61-50B45:30:00Dis charge Instructions 2Discharge DiagnosisChronic WoundsImportant InformationConsult your [...] education providedActivitiesDietaryResourcesDischarge InstructionsDischarge InstructionsDischarge Instructions 2019-11-26 (Encounter: [id number] for patient careBanner Gateway Medical Center ([facility]/[place])2577-92-37Q29:09:22 [facility] (F/[place]ON/[place]) 2017-09-15 19:30:00 [id number]+rU7kLO+OeTJu1NZIJBkdhliC RGPRnMAJ UXlQL0Br20vy3FvPTH2KWVFIhW8846-03-58O58:30:00Dis charge Instructions 2Discharge Diagnosiscellulitis / skin yeast [...] education providedDischarge InstructionsDischarge InstructionsDischarge Instructions 2017-09-15 (Encounter: [id number] for [facility] ([facility])[id number] [facility] ([facility])
[2024-03-29] MEDS ORDERED: LEVALBUTEROL 1.25 MG/3 ML NEB ONE (18:26)
[2024-03-29] MEDS ORDERED: IPRATROPIUM BROM 0.5MG/2.5ML ONE (18:26)
[2024-03-29] MEDS ORDERED: METHYLPREDNISOLONE 125 MG INJ ONE (18:26)
[2024-03-29] MEDS ORDERED: Levofloxacin500mg IV 500 MG/100 ML BAG IV ONE (18:27)
[2024-03-29] MEDS ORDERED: FAMOTIDINE 20 MG/2 ML VIAL IV ONE (18:27)
[2024-03-29 18:39] LABS: PT Prothrombin Time 12.4 SECONDS (9.5-12.5); Protime INR 1.13
[2024-03-29 18:41] LABS: Absolute Eosinophils 0.2 K/uL (0-0.5); Absolute Monocytes 0.4 K/uL (0.1-1.3); Absolute Neutrophil 6.3 K/uL (1.8-8.0); Basophils % 0.6 % (0-1.3); Eosinophils % 3.1 % (0-4.4); Hematocrit 32.7 % (36.0-45.0); Hemoglobin 10.2 g/dL (12.0-15.0); Lymphocytes % 12.5 % (15.3-44.8); MCH 28.1 pg (27.0-35.0); MCHC 31.4 g/dL (32.0-36.0); MCV 89.6 fL (80-100); MPV 7.9 fL (7.6-11.3); Monocytes % 4.5 % (3.3-12.3); Neutrophils % 79.3 % (41.7-73.7); Nucleated Red Blood Cells % 0.2 % (0-0); Platelets 317 thou/uL (152-406); RBC Red Blood Cell Count 3.65 M/uL (3.86-4.86); Red Cell Distribution Width 18.4 % (12.1-15.2)
[2024-03-29 18:42] LABS: Arterial Blood Carboxyhemoglob 2.2 % (0-1.5); Blood Gas Oxyhemoglobin 91.7 % (94-97); Blood Gas THB 9.5 g/dl (12-18); Blood O2 Saturation 95.3 % (92-98.5)
--- NOTE | 2024-03-29 18:42 | RAD REPORT ---
EXAM DESCRIPTION: RAD - Chest Single View - 03/29/2024 6:25 pm CLINICAL HISTORY: Cough;Dyspnea Chest pain. COMPARISON: Chest Single View dated 02/11/2024; Chest Single View dated 02/10/2024; Chest Single View dated 02/09/2024; Chest Single View dated 02/08/2024 FINDINGS: Portable technique limits examination quality. Moderate bilateral pulmonary opacities may represent pulmonary edema or less likely pneumonia. The he art is moderately enlarged. No displaced fractures.
[2024-03-29 18:58] LABS: ALT/SGPT 18 U/L (13-56); Albumin 2.8 g/dL (3.4-5.0); Albumin/Globulin Ratio 0.7 (1.1-1.8); Alkaline Phosphatase 79 U/L (45-117); Anion Gap 4.4 mEq/L (5.0-15.0); BUN Blood Urea Nitrogen 9 mg/dL (7-18); Bicarbonate 40 mEq/L (21-32); Bilirubin Total 0.4 mg/dL (0.2-1.0); Globulin 4.1 g/dL (2.3-3.5); Glomerular Filtration Rate 110 ml/min (=/>90); Glucose Level 311 mg/dL (74-106); Magnesium 1.8 mg/dL (1.6-2.4); NT PRO-BNP 278 pg/mL (<125); Potassium 4.4 mEq/L (3.5-5.1); Protein, Total 6.9 g/dL (6.4-8.2); Sodium Level 138 mEq/L (136-145); Troponin High Sensitivity 4.8 pg/mL (<58.9)
[2024-03-29 19:03] LABS: AST/SGOT < 10 U/L (15-37); Bilirubin Direct < 0.2 mg/dL (0-0.2); Bilirubin Indirect, Calculated 0.2 mg/dL (0.2-0.8)
--- NOTE | 2024-03-29 19:06 | ER ---
Nurse's Notes [facility] Name: Courtney Sawyer Age: 49 yrs Sex: Female : 1975 Arrival Date: 03/29/2024 Time: 18:02 Bed 8 Private MD: Diagnosis: Acute and chronic respiratory failure with hypercapnia;Acute and chronic respiratory failure with hypoxia;Obesity, unspecified Presentation: 03/29 18:04 Chief complaint: EMS states: [facility] toned out EMS for oxygen saturation of rs5 70% RA. No improvement on nasal cannula or non-rebreathe, pt placed on BiPAP and ox saturations are now 97%. Coronavirus screen: At this time, the client does not indicate any symptoms associated with coronavirus-19. Ebola Screen: No symptoms or risks identified at this time. Initial Sepsis Screen: Does the patient meet any 2 criteria? No. Patient's initial sepsis screen is negative. Does the patient have a suspected source of infection? No. Patient's initial sepsis screen is negative. Risk Assessment: Do you want to hurt yourself or someone else? Patient reports no desire to harm self or others. Onset of symptoms was March 29, 2024. 18:04 Method Of Arrival: EMS: [facility] rs5 18:04 Acuity: LAURI 3 rs5 18:04 Acuity: LAURI 2 rs5 18:04 Care prior to arrival: IV initiated. 22 GA, in the left hand. rs5 Triage Assessment: 18:09 General: Appears uncomfortable, Behavior is cooperative. Pain: Denies pain. rs5 Historical: - Allergies: 18:09 Cephalexin; rs5 18:09 Adhesives; rs5 18:09 Codeine; rs5 18:09 Keflex; rs5 18:09 Tylenol; rs5 - PMHx: 18:09 Anemia; Asthma; COPD; Dementia; depressive disorder; diabetes mellitus; GERD; rs5 Hypertensive disorder; Obesity; CHF; - PSHx: 18:09 None; rs5 - Immunization history:: Adult Immunizations up to date. - Infectious Disease History:: Denies. - Social history:: Smoking status: Patient denies any tobacco usage or history of. - Family history:: not pertinent. Screenin:05 [facility] ED Fall Risk Assessment (Adult) History of falling in the last 3 months, rs5 including since admission No falls in past 3 months (0 pts) Confusion or Disorientation No (0 pts) Intoxicated or Sedated No (0 pts) Impaired Gait Yes (1 pt) Mobility Assist Device Used Yes (1 pt) Altered Elimination No (0 pt) Score/Fall Risk Level 0 - 2 = Low Risk Oriented to surroundings, Maintained a safe environment. Abuse screen: Denies threats or abuse. Nutritional screening: No deficits noted. Tuberculosis screening: No symptoms or risk factors identified. Assessment: 18:05 General: Appears uncomfortable, Behavior is cooperative. Pain: Denies pain. Neuro: rs5 Level of Consciousness is awake, alert, obeys commands, Oriented to person, place, time, situation. Cardiovascular: Patient's skin is warm and dry. Rhythm is regular. Respiratory: Airway is patent Respiratory effort is even, unlabored, Respiratory pattern is regular, symmetrical. Respiratory: Reports shortness of breath. GI: Abdomen is obese. GI: No signs and/or symptoms were reported involving the gastrointestinal system. : No signs and/or symptoms were reported regarding the genitourinary system. EENT: No signs and/or symptoms were reported regarding the EENT system. Derm: Skin is intact, Skin is pink, warm \T\ dry. Musculoskeletal: Range of motion: intact in all extremities. 19:00 Reassessment: Patient and/or family updated on plan of care and expected duration. Pain lc8 level reassessed. 19:00 General: Appears uncomfortable. Pain: Denies pain. lc8 20:00 Reassessment: Patient and/or family updated on plan of care and expected duration. Pain lc8 level reassessed. 21:00 Reassessment: No changes from previously documented assessment. lc8 22:00 Reassessment: Patient and/or family updated on plan of care and expected duration. Pain lc8 level reassessed. Vital Signs: 18:04 BP 137 / 81; Pulse 77; Resp 17; Pulse Ox 96% on BiPAP; FiO2 50 %; rs5 19:00 BP 114 / 55; Pulse 98; Resp 17; Pulse Ox 97% on BiPAP; lc8 20:00 BP 125 / 56; Pulse 96; Resp 18; Pulse Ox 96% on BiPAP; lc8 21:00 BP 112 / 48; Pulse 91; Resp 16; Pulse Ox 97% on BiPAP; lc8 22:00 BP 121 / 61; Pulse 85; Resp 17; Pulse Ox 96% on BiPAP; lc8 23:00 BP 119 / 71; Pulse 85; Resp 17; Pulse Ox 96% ; lc8 [place] Coma Score: 18:40 Eye Response: spontaneous(4). Motor Response: obeys commands(6). Verbal Response: radha oriented(5). Total: 15. ED Course: 18:04 Patient arrived in ED. rs5 18:05 Rajeev Keys MD is Attending Physician. radha 18:05 No provider procedures requiring assistance completed. rs5 18:08 Triage completed. rs5 18:27 XRAY Chest (1 view) In Process Unspecified. EDMS 18:37 EKG done, by ED staff, reviewed by Rajeev Keys MD. jg11 18:37 Patient has correct armband on for positive identification. Placed in gown. Bed in low jg11 position. Call light in reach. Side rails up X 1. Side rails up X2. Noise minimized. Warm blanket given. Pillow given. 18:49 Americo Hull, FREDERICK is Primary Nurse. rs5 19:03 Lobito Marrero MD is Hospitalizing Provider. radha 19:25 SPOKE WITH DAUGHTER UPDATED HER ON ADMISSION STATUS. kmf 19:45 Goldman cath inserted, using sterile technique, 16 Fr., by me, by carpentry instructor, by ED staff, lc8 balloon inflated, to gravity drainage, returned clear yellow urine. Patient tolerated well. 21:39 Awaiting bed assignment. lc8 23:30 Patient admitted, IV remains in place. intact, bleeding controlled, No redness/swelling lc8 at site. Pressure dressing applied. 03/30 09:46 Provided Education on: admit. ko1 09:47 Arm band placed on right wrist. Patient placed in an exam room, on a stretcher, on ko1 secured entrance monitor, on pulse oximetry. Administered Medications: 03/29 18:25 Drug: MethylPrednisoLONE IVP 250 mg IVP once Route: IVP; Site: right hand; rs5 18:25 Drug: Levalbuterol Inhalation 3.75 mg Inhalation once Route: Inhalation; rs5 18:25 Drug: Ipratropium Inhalation Aerosol 0.5 mg Inhalation once Route: Inhalation; rs5 18:25 Drug: levofloxacin IVPB 500 mg 100 ml IVPB once over 60 mins Volume: 100 ml; Route: rs5 IVPB; Infused Over: 60 mins; Site: right hand; 19:30 Follow up: IV Status: Completed infusion; IV Intake: 100ml [facility] 18:26 Drug: Famotidine IVP 20 mg IVP once; dilute with 10 mL 0.9% NaCl; give over 2 minutes rs5 Route: IVP; Site: right hand; 03/30 01:02 Follow up: Response: No adverse reaction 8 03/29 18:52 CANCELLED (Duplicate Order): [id number] mg IVP once; give over 2 minutes radha 18:53 CANCELLED (Duplicate Order): [id number] mg IVP once; give over 2 minutes radha 20:10 Drug: Furosemide IVP 40 mg IVP once; give over 2 minutes Route: IVP; Site: right hand; [facility] 20:29 Follow up: Response: No adverse reaction 8 03/30 01:01 Follow up: Response: No adverse reaction 8 03/29 21:56 Drug: Insulin Regular Human IVP 5 units IVP once {Co-Signature: rg5 (Kvng Bhatti RN).} Route: IVP; Site: right hand; 03/30 01:01 Follow up: Response: No adverse reaction 8 03/29 21:58 Drug: Insulin Glargine Sub-Q 35 units Sub-Q once {Co-Signature: rg5 (Kvng Bhatti RN).} Route: Sub-Q; Site: right upper abdomen; 03/30 01:01 Follow up: Response: No adverse reaction [facility] Medication: 00:55 VIS not applicable for this client. lc8 Intake: 03/29 19:30 IV: 100ml; Total: 100ml. lc8 Outcome: 19:05 Decision to Hospitalize by Provider. [facility] 03/30 03:22 Admitted to ER Hold. Please see [facility] for further documentation. lc8 Condition: stable Instructed on the need for admit, 11:28 Patient left the ED. ko1 Signatures: Dispatcher [employer] Rajeev Ny MD MD cha Oliver, Kathy, RN RN ko1 Americo Hull RN RN rs5 Ashley Call Jordan jg11 Cliff Bills RN RN lc8 Bhatti, Kvng RN rg5
--- NOTE | 2024-03-29 19:06 | EDPHYS ---
Physician Documentation [facility] Name: Courtney Sawyer Age: 49 yrs Sex: Female : 1975 Arrival Date: 03/29/2024 Time: 18:02 Bed 8 Private MD: ED Physician Rajeev Keys HPI: 03/29 18:40 This 49 yrs old Female presents to ER via EMS with complaints of Shortness Of radha Breath. 18:40 The patient has shortness of breath with light activity. Onset: The symptoms/episode radha began/occurred 1 day(s) ago. Duration: The symptoms are continuous, and are steadily getting worse. The patient's shortness of breath is aggravated by supine position, is alleviated by bipap. Associated signs and symptoms: Pertinent positives: non-productive cough. Severity of symptoms: At their worst the symptoms were moderate severe just prior to arrival, today, in the emergency department the symptoms are unchanged. The patient has experienced similar episodes in the past, multiple times. Historical: - Allergies: 18:09 Cephalexin; rs5 18:09 Adhesives; rs5 18:09 Codeine; rs5 18:09 Keflex; rs5 18:09 Tylenol; rs5 - PMHx: 18:09 Anemia; Asthma; COPD; Dementia; depressive disorder; diabetes mellitus; GERD; rs5 Hypertensive disorder; Obesity; CHF; - PSHx: 18:09 None; rs5 - Immunization history:: Adult Immunizations up to date. - Infectious Disease History:: Denies. - Social history:: Smoking status: Patient denies any tobacco usage or history of. - Family history:: not pertinent. ROS: 18:40 Neck: Negative for injury, pain, and swelling, radha 18:40 Constitutional: Positive for malaise, 18:40 Respiratory: Positive for dyspnea on exertion, shortness of breath, 18:40 Unable to obtain ROS due to bipap, Exam: 18:40 Constitutional: This is a well developed, well nourished patient who is awake, alert, radha and in no acute distress. Head/Face: Normocephalic, atraumatic. Eyes: Pupils equal round and reactive to light, extra-ocular motions intact. Lids and lashes normal. Conjunctiva and sclera are non-icteric and not injected. Cornea within normal limits. Periorbital areas with no swelling, redness, or edema. ENT: Nares patent. No nasal discharge, no septal abnormalities noted. Tympanic membranes are normal and external auditory canals are clear. Oropharynx with no redness, swelling, or masses, exudates, or evidence of obstruction, uvula midline. Mucous membranes moist. Neck: Trachea midline, no thyromegaly or masses palpated, and no cervical lymphadenopathy. Supple, full range of motion without nuchal rigidity, or vertebral point tenderness. No Meningismus. Chest/axilla: Normal chest wall appearance and motion. Nontender with no deformity. No lesions are appreciated. Cardiovascular: Regular rate and rhythm with a normal S1 and S2. No gallops, murmurs, or rubs. Normal PMI, no JVD. No pulse deficits. Abdomen/GI: Soft, non-tender, with normal bowel sounds. No distension or tympany. No guarding or rebound. No evidence of tenderness throughout. Back: No spinal tenderness. No costovertebral tenderness. Full range of motion. Skin: Warm, dry with normal turgor. Normal color with no rashes, no lesions, and no evidence of cellulitis. Neuro: Awake and alert, GCS 15, oriented to person, place, time, and situation. Cranial nerves II-XII grossly intact. Motor strength 5/5 in all extremities. Sensory grossly intact. Cerebellar exam normal. Normal gait. Psych: Awake, alert, with orientation to person, place and time. Behavior, mood, and affect are within normal limits. 18:40 ECG was reviewed by the Attending Physician. 18:40 Respiratory: moderate respiratory distress is noted, Respirations: labored breathing, that is mild, Breath sounds: decreased breath sounds, that are moderate, are heard in the right upper lobe, left upper lobe, right middle lobe, left lower lobe, right lower lobe, left posterior upper lobe, right posterior upper lobe, left posterior lower lobe, right posterior middle lobe and right posterior lower lobe, 18:40 Musculoskeletal/extremity: ROM: limited active range of motion, in the right leg and left leg, limited passive range of motion, Circulation is intact in all extremities. Sensation intact. Compartment Syndrome exam of affected extremity: is normal. Vital Signs: 18:04 BP 137 / 81; Pulse 77; Resp 17; Pulse Ox 96% on BiPAP; FiO2 50 %; rs5 19:00 BP 114 / 55; Pulse 98; Resp 17; Pulse Ox 97% on BiPAP; lc8 20:00 BP 125 / 56; Pulse 96; Resp 18; Pulse Ox 96% on BiPAP; lc8 21:00 BP 112 / 48; Pulse 91; Resp 16; Pulse Ox 97% on BiPAP; lc8 22:00 BP 121 / 61; Pulse 85; Resp 17; Pulse Ox 96% on BiPAP; lc8 23:00 BP 119 / 71; Pulse 85; Resp 17; Pulse Ox 96% ; lc8 [place] Coma Score: 18:40 Eye Response: spontaneous(4). Motor Response: obeys commands(6). Verbal Response: radha oriented(5). Total: 15. MDM: 18:05 Patient medically screened. radha 18:49 Differential diagnosis: asthma, Bronchitis CHF exacerbation, pneumonia, pulmonary radha edema, Pulmonary Embolism reactive airway disease, Sepsis Unstable Angina. Antibiotic administration: Levaquin given. Immunization status:. Data reviewed: vital signs, nurses notes, lab test result(s), EKG, radiologic studies, plain films. Consideration of Admission/Observation Patient was admitted/placed on observation. Escalation of care including admission/observation considered. I considered the following discharge prescriptions or medication management in the emergency department Medications were administered in the Emergency Department. See MAR. Independent interpretation of the following test(s) in the Emergency Department EKG: See my EKG interpretation above. Test considered but Not performed: CT: no ct chest , too heavy. Historians other than the Patient: EMS: ems well informed. Care significantly affected by the following chronic conditions: Diabetes, Hypertension, Congestive Heart Failure, Chronic Obstructive Pulmonary Disease, Obesity. Counseling: I had a detailed discussion with the patient and/or guardian regarding the historical points, exam findings, and any diagnostic results supporting the discharge/admit diagnosis, the presence of at least one elevated blood pressure reading (>120/80) during this emergency department visit, lab results, radiology results, the need for further work-up and treatment in the hospital. 03/29 18:08 Order name: Basic Metabolic Panel; Complete Time: 19:37 [facility] 03/29 18:08 Order name: CBC with Diff; Complete Time: 18:54 [facility] 03/29 18:08 Order name: LFT's; Complete Time: 19:37 [facility] 03/29 18:08 Order name: Magnesium; Complete Time: 19:37 [facility] 03/29 18:08 Order name: NT PRO-BNP; Complete Time: 19:37 [facility] 03/29 18:08 Order name: PT-INR; Complete Time: 18:54 [facility] 03/29 18:08 Order name: Troponin HS; Complete Time: 19:37 [facility] 03/29 18:08 Order name: ABG; Complete Time: 18:54 [facility] 03/29 18:08 Order name: Blood Culture Adult (2) [facility] 03/29 18:08 Order name: Lactate w/ 2H reflex if indic. [facility] 03/29 20:03 Order name: Urinalysis w/ reflexes EDMS 03/29 20:03 Order name: CBC with Automated Diff EDMS 03/29 20:03 Order name: CBC with Automated Diff EDMS 03/29 20:03 Order name: Comprehensive Metabolic Panel EDMS 03/29 20:03 Order name: Comprehensive Metabolic Panel EDHI 03/29 21:10 Order name: Glucose, Ancillary Testing EDMS 03/30 05:22 Order name: Manual Differential EDMS 03/30 09:44 Order name: Glucose, Ancillary Testing EDHI 03/29 18:08 Order name: XRAY Chest (1 view); Complete Time: 18:54 [facility] 03/29 18:08 Order name: EKG; Complete Time: 18:09 [facility] 03/29 18:08 Order name: Cardiac monitoring; Complete Time: 21:59 [facility] 03/29 18:08 Order name: EKG - Nurse/Tech; Complete Time: 21:59 [facility] 03/29 18:08 Order name: IV Saline Lock; Complete Time: 21:59 [facility] 03/29 18:08 Order name: Labs collected and sent; Complete Time: 21:59 [facility] 03/29 18:08 Order name: O2 Per Protocol; Complete Time: 21:59 [facility] 03/29 18:08 Order name: O2 Sat Monitoring; Complete Time: 21:59 [facility] 03/29 18:08 Order name: Goldman; Complete Time: 20:10 [facility] EC:40 Rate is 105 beats/min. Rhythm is regular. QRS [place] is Normal. TN interval is normal. radha QRS interval is normal. QT interval is normal. No Q waves. T waves are Normal. No ST changes noted. Clinical impression: Sinus tachycardia and No evidence of ischemia. Interpreted by me. Reviewed by me. Administered Medications: 18:25 Drug: MethylPrednisoLONE IVP 250 mg IVP once Route: IVP; Site: right hand; rs5 18:25 Drug: Levalbuterol Inhalation 3.75 mg Inhalation once Route: Inhalation; rs5 18:25 Drug: Ipratropium Inhalation Aerosol 0.5 mg Inhalation once Route: Inhalation; rs5 18:25 Drug: levofloxacin IVPB 500 mg 100 ml IVPB once over 60 mins Volume: 100 ml; Route: rs5 IVPB; Infused Over: 60 mins; Site: right hand; 19:30 Follow up: IV Status: Completed infusion; IV Intake: 100ml 8 18:26 Drug: Famotidine IVP 20 mg IVP once; dilute with 10 mL 0.9% NaCl; give over 2 minutes rs5 Route: IVP; Site: right hand; 03/30 01:02 Follow up: Response: No adverse reaction [facility] 03/29 18:52 CANCELLED (Duplicate Order): [id number] mg IVP once; give over 2 minutes radha 18:53 CANCELLED (Duplicate Order): [id number] mg IVP once; give over 2 minutes radha 20:10 Drug: Furosemide IVP 40 mg IVP once; give over 2 minutes Route: IVP; Site: right hand; 8 20:29 Follow up: Response: No adverse reaction [facility] 03/30 01:01 Follow up: Response: No adverse reaction [facility] 03/29 21:56 Drug: Insulin Regular Human IVP 5 units IVP once {Co-Signature: rg5 (Kvng Bhatti lc8 RN).} Route: IVP; Site: right hand; 03/30 01:01 Follow up: Response: No adverse reaction [facility] 03/29 21:58 Drug: Insulin Glargine Sub-Q 35 units Sub-Q once {Co-Signature: rg5 (Kvng Bhatti lc8 RN).} Route: Sub-Q; Site: right upper abdomen; 03/30 01:01 Follow up: Response: No adverse reaction lc8 Disposition Summary: 03/29/24 19:05 Hospitalization Ordered Notes: Hospitalization Status: Inpatient Admission radha Provider: Lobito Marrero cha Condition: Serious radha Problem: new radha Symptoms: have improved radha Bed/Room Type: Standard radha Location: Telemetry/MedSurg (Inpatient)(03/30/24 10:09) Room Assignment: 209(03/30/24 10:09) hb Diagnosis - Acute and chronic respiratory failure with hypercapnia radha - Acute and chronic respiratory failure with hypoxia radha - Obesity, unspecified radha Forms: - Medication Reconciliation Form radha - SBAR form radha - Leadership Thank You Letter radha Signatures: Dispatcher [employer] EDRajeev Mcdaniel MD MD cha Baxter, Heather, RN RN hb Americo Hull RN RN rs5 Cliff Bills RN RN lc8 Kvng Bhatti RN rg5 Corrections: (The following items were deleted from the chart) 03/29 18:09 18:08 BASIC METABOLIC PANEL+C.LAB.BRZ ordered. EDMS EDMS 18:09 18:08 CBC+H.LAB.BRZ ordered. EDMS EDMS 18:09 18:08 HEPATIC FUNCTION+C.LAB.BRZ ordered. EDMS EDMS 18:09 18:08 MAGNESIUM+C.LAB.BRZ ordered. EDMS EDMS 18:09 18:08 PROBNP+C.LAB.BRZ ordered. EDMS EDMS 18:09 18:09 PROTIME (+INR)+COAG.LAB.BRZ ordered. EDMS EDMS 18:09 18:09 Troponin High Sensitivity+C.LAB.BRZ ordered. EDMS EDMS 18:09 18:09 BLOOD CULTURE*+BA.LAB.BRZ ordered. EDMS EDMS 18:09 18:09 LACTATE+C.LAB.BRZ ordered. EDMS EDMS 18:09 18:09 Arterial Blood Gas+RC.LAB.BRZ ordered. EDMS EDMS 18:09 18:09 BiPap ([employer] Only)+RC.RAD.BRZ ordered. EDMS EDMS 18:52 18:40 Furosemide IVP 40 mg IVP once; give over 2 minutes ordered. radha radha 18:53 18:52 Furosemide IVP 20 mg IVP once; give over 2 minutes ordered. radha radha 03/30 10:03/29 19:05 Intensive Care Unit radha hb 03/30 10:03/29 19:05 radha hb
[2024-03-29] MEDS ORDERED: FUROSEMIDE 40 MG/4 ML VIAL ONE (19:14)
[2024-03-29] MEDS ORDERED: IPRATROPIUM BROM 0.5MG/2.5ML NEB PRN (19:57)
[2024-03-29] MEDS ORDERED: ACETAMINOPHEN 325 MG TABLET PO PRN (19:57)
--- NOTE | 2024-03-29 19:57 | P.HP ---
Certification for Inpatient Patient admitted to: Inpatient With expected LOS: >2 Midnights Practitioner: I am a practitioner with admitting privileges, knowledge of patient current condition, hospital course, and medical plan of care. Services: Services provided to patient in accordance with Admission requirements found in Title 42 Section 412.3 of the Code of Federal Regulations Patient History Date of Service: 03/29/24 Reason for admission: SOB History of Present Illness: 49 yrs old Female with past medical history of morbid obesity, hypertension, diabetes, depression, COPD, asthma, CHF came to ER with shortness of breath. Patient is drowsy at the time of interview and hence most of the history is obtained from chart review and also talking to the ER physician. Patient denies any chest pain. No fever or chills. Patient started having shortness of breath even with minimal activities. Worsened over the last 24 hours and was brought to ER. Patient also has a history of sleep apnea and has been on BiPAP She had similar episodes in the past as well. Denies any nausea vomiting or diarrhea. No sick contacts. Patient was assessed in the ER and is admitted for further management of CHF exacerbation and acute on chronic hypercapnic hypoxic respiratory failure Allergies adhesive tape Adverse Reaction (Intermediate, Verified 03/26/22 06:12) Nausea/Vomiting codeine Adverse Reaction (Intermediate, Verified 03/26/22 06:12) Nausea/Vomiting Home medications list reviewed: Yes Home Medications: Aspirin [Aspirin EC 81 MG] 81 mg PO DAILY 03/26/22 Atorvastatin Calcium 40 mg PO BEDTIME 03/26/22 Benztropine Mesylate 1 mg PO Q12H 03/26/22 Docusate [Colace Cap*] 100 mg PO BID 03/26/22 Ergocalciferol (Vitamin D2) [Vitamin D2] 50,000 unit PO Q7D 03/26/22 Fexofenadine HCl [Jeri Allergy] 180 mg PO DAILY 03/26/22 Folic Acid 0.4 mg PO DAILY 03/26/22 Gabapentin 300 mg PO TID 03/26/22 Metformin HCl [Glucophage*] 500 mg PO BID 03/26/22 Calcium Carbonate [Tums Regular*] 500 mg PO BID 03/15/23 Sertraline [Zoloft*] 100 mg PO DAILY 03/15/23 Albuterol Neb [Proventil 0.083% Neb Soln] 2.5 mg NEB [id number] amp 03/18/23 Insulin -Regular Human [Novolin -R*] See Protocol SQ ACHS ml 03/18/23 Arformoterol Tartrate [Brovana] 15 mcg NEB BIDRESP vial.neb 08/16/23 Ammonium Lactate 1 appl TOP BID 08/19/23 Nitroglycerin 0.4 mg SL Q5M PRN MDD 3 01/24/24 Ondansetron [Zofran (Odt)*] 4 mg PO Q8H PRN 01/24/24 Hydrocodone 5/APAP 325 [[place] 5/325*] 1 tab PO Q6H PRN #12 tab 02/19/24 Insulin Glargine,Hum.rec.anlog [Semglee] 40 unit SQ BEDTIME ml 02/19/24 Insulin Regular, Human [Novolin R] See Protocol SQ ACHS ml 02/19/24 Kaleb [Kaleb*] 1 pkt PO BID 02/19/24 Mometasone/Formoterol [Dulera 200 Mcg/5 Mcg Inhaler] 2 puff IH BID inhaler 02/19/24 Nystatin Powder [Mycostatin (Powder)*] 1 appl TOP BID bottle 02/19/24 Spironolactone [Aldactone*] 25 mg PO DAILY tab 02/19/24 acetaZOLAMIDE [Diamox*] 250 mg PO DAILY tab 02/19/24 - Past Medical/Surgical History Diabetic: Yes Past Medical History: Reviewed- Non-Contributory -: COPD -: DMII -: morbid obesity -: Asthma -: CHF -: Chronic pain Past Surgical History: Reviewed- Non-Contributory -: laporoscopic tubal ligation Psychosocial/ Personal History: Patient is resident of long term - Family History Family History: Reviewed- Non-Contributory - Family History Father -: Heart disease, Diabetes Mother -: Heart disease, Diabetes - Social History Smoking Status: Former smoker Alcohol use: No CD- Drugs: No Caffeine use: Yes Review of Systems 10-point ROS is otherwise unremarkable Physical Examination - Vital Signs Temperature: 98.2 F Blood Pressure: 138/82 Pulse: 106 Respirations: 18 Pulse Ox (%): 97 - Physical Exam General: Alert, Moderate distress, Obese HEENT: Atraumatic, Normocephalic Neck: Supple, No Thyromegaly Respiratory: Diminished, Crackles/rales, Expiratory wheezes Cardiovascular: Regular rate/rhythm, Normal S1 S2 Capillary refill: <2 Seconds Gastrointestinal: Soft and benign, W/out hepatosplenomegaly, No tenderness Musculoskeletal: No clubbing, Swelling Integumentary: No rashes, No tenderness/swelling Neurological: Normal strength at 5/5 x4 extr, Cranial nerves 3-12 intact, Normal reflexes 2+ Lymphatics: No axilla or inguinal lymphadenopathy - Studies Laboratory Data (last 24 hrs) 03/29/24 03/29/24 03/29/24 18:20 18:20 18:20 WBC 7.90 Hgb 10.2 L Hct 32.7 L Plt Count 317 PT 12.4 INR 1.13 Sodium 138 Potassium 4.4 BUN 9 Creatinine 0.61 Glucose 311 H Magnesium 1.8 Total Bilirubin 0.4 AST < 10 L ALT 18 Alkaline Phosphatase 79 Assessment and Plan - Problems (Diagnosis) (1) Respiratory failure with hypoxia and hypercapnia Current Visit: No Status: Acute Plan: Acute hypoxic hypercapnic respiratory failure On BiPAP Monitor closely on telemetry Bronchodilators as needed Acute on chronic CHF possibly diastolic Monitor closely on telemetry Started on aggressive diuresis X-ray findings consistent with CHF Oxygen supplementation Will try to wean down oxygen requirement Continue home medications Titrate as needed Will obtain an echocardiogram Cardiology consult Hypertension Antihypertensives titrated Continue home medications and titrate as needed Hyperlipidemia Continue statin Morbid obesity Advise lifestyle modification Anemia of chronic disease Monitor H&H closely No overt bleeding at this time GI/DVT prophylaxis Advanced directive full code Qualifiers: Chronicity: acute on chronic Qualified Code(s): J96.21 - Acute and chronic respiratory failure with hypoxia; J96.22 - Acute and chronic respiratory failure with hypercapnia Discharge Plan: Long-Term Plan to discharge in: Greater than 2 days - Advance Directives Does patient have a Living Will: No Does patient have a Durable POA for Healthcare: No - Code Status/Comfort Care Code Status: Full Code Time Spent Managing Pts Care (In Minutes): 48
[2024-03-29] MEDS: FUROSEMIDE 40 MG/4 ML VIAL IV SCH (20:02)
[2024-03-29] MEDS ORDERED: INSULIN GLARGINE 100 UNIT/ML SQ ONE (20:49)
[2024-03-29] MEDS ORDERED: INSULIN REGULAR (HUMAN) 100 UNIT/ML ONE (20:50)
[2024-03-29] MEDS ORDERED: GLUCAGON 1 MG/VIAL IM PRN (22:58)
[2024-03-29] MEDS ORDERED: D50W 25 GM/50 ML SYRINGE IV PRN (22:58)
[2024-03-29] MEDS ORDERED: D10W 125 ML IV PRN (23:05)
[2024-03-29 23:22] LABS: Calcium Oxalate Crystals- Ur Few /HPF (None Seen); Specific Gravity 1.007 (1.005-1.030); Sqamous Epithelial <5 /HPF (None Seen); Urine Bacteria <20 /HPF (<20); Urine Bilirubin NEGATIVE (Negative); Urine Blood Negative (Negative); Urine Clarity Clear (Clear); Urine Color Colorless (Yellow); Urine Culture Reflex Order REFLEXED; Urine Glucose TRACE (Negative); Urine Ketones NEGATIVE (Negative); Urine Microscopic Reflex YN ORDER UMIC; Urine Mucus Slight /HPF (None Seen); Urine Nitrite NEGATIVE (Negative); Urine Protein NEGATIVE (Negative); Urine RBC <5 /HPF (None Seen); Urine Urobilinogen Normal (Normal)
[2024-03-30] MEDS ORDERED: FUROSEMIDE 40 MG/4 ML VIAL ONE ×2 (03:09→09:38)
[2024-03-30 04:59] LABS: Absolute Lymphocytes (CBC) 0.6 K/uL (0.7-4.9); Absolute Monocytes 0.1 K/uL (0.1-1.3); Absolute Neutrophil 6.6 K/uL (1.8-8.0); Basophils % 0.4 % (0-1.3); Eosinophils % 0.1 % (0-4.4); Hematocrit 33.8 % (36.0-45.0); Hemoglobin 10.2 g/dL (12.0-15.0); Lymphocytes % 8.4 % (15.3-44.8); MCH 27.3 pg (27.0-35.0); MCHC 30.3 g/dL (32.0-36.0); MCV 90.2 fL (80-100); MPV 8.3 fL (7.6-11.3); Monocytes % 0.8 % (3.3-12.3); Neutrophils % 90.3 % (41.7-73.7); Nucleated Red Blood Cells % 0.1 % (0-0); Platelets 307 thou/uL (152-406); RBC Red Blood Cell Count 3.75 M/uL (3.86-4.86); Red Cell Distribution Width 17.9 % (12.1-15.2)
[2024-03-30 05:18] LABS: Albumin 2.9 g/dL (3.4-5.0); Albumin/Globulin Ratio 0.7 (1.1-1.8); Anion Gap 6.2 mEq/L (5.0-15.0); Bilirubin Total 0.5 mg/dL (0.2-1.0); Globulin 4.2 g/dL (2.3-3.5); Potassium 4.2 mEq/L (3.5-5.1); Protein, Total 7.1 g/dL (6.4-8.2)
[2024-03-30 05:21] LABS: Anisocytosis 1+; Band Neutrophils 11 % (0-1); Blood Morphology Comment NOTED (NOT SEEN); Differential Total Cells Count 100; Lymphocytes 8 % (15-42); Monocytes 1 % (0-10); Platelet Estimate ADEQ; Reactive Lymphocytes 1 %; Segmented Neutrophils 79 % (40-80)
[2024-03-30] MEDS: INSULIN GLARGINE 100 UNIT/ML SQ SCH (06:00)
[2024-03-30] MEDS ORDERED: INSULIN GLARGINE 100 UNIT/ML SQ ONE (06:11)
[2024-03-30] MEDS: INSULIN REGULAR (HUMAN) 100 UNIT/ML SQ SCH (07:30)
[2024-03-30] MEDS: ENOXAPARIN 40 MG/0.4 ML SQ SCH (09:00)
[2024-03-30] MEDS: SPIRONOLACTONE 25 MG TABLET PO SCH (09:00)
[2024-03-30] MEDS ORDERED: INSULIN REGULAR (HUMAN) 100 UNIT/ML ONE (09:38)
[2024-03-30] MEDS ORDERED: ENOXAPARIN 40 MG/0.4 ML SQ ONE (09:39)
--- NOTE | 2024-03-30 10:01 | P.PN ---
Subjective Date of Service: 03/31/24 Chief Complaint: SOB Admitted for CHF exacerbation, placed on BiPAP, reports shortness of breath with exertion Review of Systems Per HPI Physical Examination - Vital Signs Temperature: 98 F Blood Pressure: 115/64 Pulse: 75 Respirations: 16 Pulse Ox (%): 98 - Physical Exam General: Alert, Mild distress, Other (Morbid obesity on BiPAP) HEENT: Atraumatic, Normocephalic Neck: 2+ carotid pulse no bruit Respiratory: Crackles/rales, Expiratory wheezes Cardiovascular: Regular rate/rhythm Capillary refill: <2 Seconds Gastrointestinal: No tenderness, Other Musculoskeletal: Other (Generalized weakness) Neurological: Normal speech, Normal strength at 5/5 x4 extr - Studies Laboratory Data (last 24 hrs) 03/29/24 03/29/24 03/29/24 18:20 18:20 18:20 WBC 7.90 Hgb 10.2 L Hct 32.7 L Plt Count 317 PT 12.4 INR 1.13 Sodium 138 Potassium 4.4 BUN 9 Creatinine 0.61 Glucose 311 H Magnesium 1.8 Total Bilirubin 0.4 AST < 10 L ALT 18 Alkaline Phosphatase 79 Assessment And Plan - Plan Acute hypoxic hypercapnic respiratory failure On BiPAP Monitor closely on telemetry Bronchodilators as needed Acute on chronic CHF possibly diastolic Monitor closely on telemetry Started on aggressive diuresis X-ray findings consistent with CHF Oxygen supplementation Will try to wean down oxygen requirement Continue home medications Titrate as needed Will obtain an echocardiogram Cardiology consult Diarrhea Stool cultures Hypertension Antihypertensives titrated Continue home medications and titrate as needed Hyperlipidemia Continue statin Morbid obesity Advise lifestyle modification Anemia of chronic disease Monitor H&H closely No overt bleeding at this time GI/DVT prophylaxis Advanced directive full code Discharge Plan: Halfway - Code Status/Comfort Care Code Status: Full Code Critical Care: No Time Spent Managing PTS Care (In Minutes): 35
[2024-03-30] MEDS: ACETAZOLAMIDE 500 MG IV IV SCH (10:37)
--- NOTE | 2024-03-30 10:37 | P.CNS ---
Date of Consult: 03/30/24 Reason for Consult: Respiratory failure Chief Complaint: SOB History of Present Illness: Patient is 49 years of age recurrent hospital admissions metabolic syndrome and is noncompliant with her noninvasive ventilator at home and in short of breath patient is disoriented to be hypoxic hypercapnic currently stable complains of mild diarrhea Allergies adhesive tape Adverse Reaction (Intermediate, Verified 03/26/22 06:12) Nausea/Vomiting codeine Adverse Reaction (Intermediate, Verified 03/26/22 06:12) Nausea/Vomiting Home Medications: Aspirin [Aspirin EC 81 MG] 81 mg PO DAILY 03/26/22 Atorvastatin Calcium 40 mg PO BEDTIME 03/26/22 Benztropine Mesylate 1 mg PO Q12H 03/26/22 Docusate [Colace Cap*] 100 mg PO BID 03/26/22 Ergocalciferol (Vitamin D2) [Vitamin D2] 50,000 unit PO Q7D 03/26/22 Fexofenadine HCl [Jeri Allergy] 180 mg PO DAILY 03/26/22 Folic Acid 0.4 mg PO DAILY 03/26/22 Gabapentin 300 mg PO TID 03/26/22 Metformin HCl [Glucophage*] 500 mg PO BID 03/26/22 Calcium Carbonate [Tums Regular*] 500 mg PO BID 03/15/23 Sertraline [Zoloft*] 100 mg PO DAILY 03/15/23 Albuterol Neb [Proventil 0.083% Neb Soln] 2.5 mg NEB [id number] amp 03/18/23 Insulin -Regular Human [Novolin -R*] See Protocol SQ ACHS ml 03/18/23 Arformoterol Tartrate [Brovana] 15 mcg NEB BIDRESP vial.neb 08/16/23 Ammonium Lactate 1 appl TOP BID 08/19/23 Nitroglycerin 0.4 mg SL Q5M PRN MDD 3 01/24/24 Ondansetron [Zofran (Odt)*] 4 mg PO Q8H PRN 01/24/24 Hydrocodone 5/APAP 325 [[place] 5/325*] 1 tab PO Q6H PRN #12 tab 02/19/24 Insulin Regular, Human [Novolin R] See Protocol SQ ACHS ml 02/19/24 Kaleb [Kaleb*] 1 pkt PO BID 02/19/24 Mometasone/Formoterol [Dulera 200 Mcg/5 Mcg Inhaler] 2 puff IH BID inhaler 02/19/24 Nystatin Powder [Mycostatin (Powder)*] 1 appl TOP BID bottle 02/19/24 Spironolactone [Aldactone*] 25 mg PO DAILY tab 02/19/24 acetaZOLAMIDE [Diamox*] 250 mg PO DAILY tab 02/19/24 Insulin Glargine,Hum.rec.anlog [Semglee] 45 unit SQ BEDTIME 03/30/24 - Past Medical/Surgical History Diabetic: Yes -: COPD -: DMII -: morbid obesity -: Asthma -: CHF -: Chronic pain -: laporoscopic tubal ligation Psychosocial/ Personal History: Patient is resident of senior living - Family History Father Medical History: Heart disease, Diabetes Mother Medical History: Heart disease, Diabetes - Social History Smoking Status: Unknown if ever smoked Alcohol use: No CD- Drugs: No Caffeine use: Yes Place of Residence: [facility] Review of Systems General: Weakness Respiratory: Shortness of Breath Gastrointestinal: Diarrhea Physical Examination Temp Pulse Resp BP Pulse Ox 98 F 75 16 115/64 98 03/30/24 10:01 03/30/24 10:01 03/30/24 10:01 03/30/24 10:03/30/24 10:01 General: Alert, Oriented x3 HEENT: Atraumatic Neck: Supple Respiratory: Clear to auscultation bilaterally, Diminished Cardiovascular: Regular rate/rhythm, Normal S1 S2, Edema Gastrointestinal: Normal bowel sounds, Soft and benign Laboratory Data (last 24 hrs) 03/29/24 03/29/24 03/29/24 18:20 18:20 18:20 WBC 7.90 Hgb 10.2 L Hct 32.7 L Plt Count 317 PT 12.4 INR 1.13 Sodium 138 Potassium 4.4 BUN 9 Creatinine 0.61 Glucose 311 H Magnesium 1.8 Total Bilirubin 0.4 AST < 10 L ALT 18 Alkaline Phosphatase 79 - Problems (1) Acute and chronic respiratory failure ([id number]) Current Visit: Yes Status: Acute Plan: Patient is 49 years of age admitted with worsening dyspnea she is a little more hypercapnic mild lower extremity edema patient's bicarbonate is elevated patient is mildly anemic vital signs are stable to resume spironolactone and Diamox for now continue with bronchodilator therapy chest x-ray reviewed bilateral opacity BNP is less than 300 continue with bronchodilators scheduled Brovana ipratropium and albuterol as needed in addition to scheduled pulmonary patient is currently hyperglycemic will try and avoid steroid Qualifiers: Respiratory failure complication: hypoxia and hypercapnia Qualified Code(s): J96.21 - Acute and chronic respiratory failure with hypoxia; J96.22 - Acute and chronic respiratory failure with hypercapnia
[2024-03-30] MEDS: ARFORMOTEROL TARTRATE 15 MCG/2 ML VIAL.NEB NEB SCH (10:38)
[2024-03-30] MEDS: METFORMIN HCL 500 MG TAB PO SCH (10:40)
[2024-03-30] MEDS: BUDESONIDE 0.5 MG/2 ML NEB NEB SCH (10:40)
[2024-03-30] MEDS: IPRATROPIUM BROM 0.5MG/2.5ML NEB SCH (13:06)
[2024-03-30] MEDS: ALBUTEROL 2.5 MG/3 ML NEB SOL NEB PRN (20:30)
[2024-03-30] MEDS: WATER FOR INJ,STERILE 10 ML ONE (21:24)
[2024-03-31 05:26] LABS: Arterial Blood Carboxyhemoglob 1.9 % (0-1.5); Blood Gas Oxyhemoglobin 95.4 % (94-97); Blood Gas THB 9.1 g/dl (12-18); Blood O2 Saturation 98.5 % (92-98.5)
[2024-03-31 07:11] LABS: Absolute Basophils 0.1 K/uL (0-0.5); Absolute Eosinophils 0.2 K/uL (0-0.5); Absolute Lymphocytes (CBC) 2.2 K/uL (0.7-4.9); Absolute Monocytes 0.6 K/uL (0.1-1.3); Absolute Neutrophil 6.3 K/uL (1.8-8.0); Basophils % 0.9 % (0-1.3); Eosinophils % 2.1 % (0-4.4); Hematocrit 30.2 % (36.0-45.0); Hemoglobin 9.6 g/dL (12.0-15.0); Lymphocytes % 23.5 % (15.3-44.8); MCH 28.6 pg (27.0-35.0); MCHC 31.9 g/dL (32.0-36.0); MCV 89.6 fL (80-100); MPV 8.1 fL (7.6-11.3); Monocytes % 6.8 % (3.3-12.3); Neutrophils % 66.7 % (41.7-73.7); Nucleated Red Blood Cells % 0.2 % (0-0); Platelets 305 thou/uL (152-406); RBC Red Blood Cell Count 3.37 M/uL (3.86-4.86)
[2024-03-31 07:41] LABS: ALT/SGPT 18 U/L (13-56); Albumin 2.8 g/dL (3.4-5.0); Albumin/Globulin Ratio 0.7 (1.1-1.8); Alkaline Phosphatase 68 U/L (45-117); Anion Gap 2.6 mEq/L (5.0-15.0); BUN Blood Urea Nitrogen 13 mg/dL (7-18); Bilirubin Total 0.3 mg/dL (0.2-1.0); Globulin 3.8 g/dL (2.3-3.5); Glomerular Filtration Rate 108 ml/min (=/>90); Glucose Level 290 mg/dL (74-106); NT PRO-BNP 251 pg/mL (<125); Potassium 3.6 mEq/L (3.5-5.1); Protein, Total 6.6 g/dL (6.4-8.2); Sodium Level 136 mEq/L (136-145)
[2024-03-31 07:42] LABS: AST/SGOT < 10 U/L (15-37); Bicarbonate > 45 mEq/L (21-32)
[2024-03-31] MEDS: WATER FOR INJ,STERILE 10 ML ONE (08:20)
--- NOTE | 2024-03-31 09:21 | P.DS ---
Admission Date: 03/29/24 Discharge Date: 03/31/24 Disposition: TRANSFER TO [facility] Reason for Admission: SOB Brief History of Present Illness: 49 yrs old Female with past medical history of morbid obesity, hypertension, diabetes, depression, COPD, asthma, CHF came to ER with shortness of breath. Patient is drowsy at the time of interview and hence most of the history is obtained from chart review and also talking to the ER physician. Patient denies any chest pain. No fever or chills. Patient started having shortness of breath even with minimal activities. Worsened over the last 24 hours and was brought to ER. Patient also has a history of sleep apnea and has been on BiPAP She had similar episodes in the past as well. Denies any nausea vomiting or diarrhea. No sick contacts. Patient was assessed in the ER and is admitted for further management of CHF exacerbation and acute on chronic hypercapnic hypoxic respiratory failure - Physical Exam General: Alert, Moderate distress, Obese HEENT: Atraumatic, Normocephalic Neck: Supple, No Thyromegaly Respiratory: Diminished, Crackles/rales, Expiratory wheezes Cardiovascular: Regular rate/rhythm, Normal S1 S2 Capillary refill: <2 Seconds Gastrointestinal: Soft and benign, W/out hepatosplenomegaly, No tenderness Musculoskeletal: No clubbing, Swelling Integumentary: No rashes, No tenderness/swelling Neurological: Normal strength at 5/5 x4 extr, Cranial nerves 3-12 intact, Normal reflexes 2+ Lymphatics: No axilla or inguinal lymphadenopathy Hospital Course: 48-year-old female with history of chronic hypercapnic/hypoxic respiratory failure, obesity hypoventilation syndrome, COPD, hypertension, GERD, depression, morbid obesity, insulin-dependent diabetes, chronic systolic congestive heart failure was brought from [facility] to the emergency department for shortness of breath, hypoxia. She was noted to have acute hypoxic resp iratory failure, placed on BiPAP, mildly elevated BNP 251, hyperglycemia 468, UA mildly elevated leukoesterase 25, troponins were normal 4.8, pulmonary consult was ordered, she was treated with nebulizers, resumption of home inhalers, diuretics, long-acting insulin, for blood glucose control sputum culture was positive for methicillin resistant Staph aureus, acineetobacter dhiraj/haem. Blood culture x 2 were no growth, UA no growth, Assessment Acute hypoxic respiratory failure-placed on bipap- Discussed Sputum cultures with pharm, from Aprin, she was treated carbapenum, repeat Sputum culture, empiric Levaquin Home O2 dependence,wean 02 to baseline Morbid obesity, Laboratory eval Chest x-ray FINDINGS: Portable technique limits examination quality.Moderate bilateral pulmonary opacities may represent pulmonary edema or less likely pneumonia. The heart is moderately enlarged. No displaced fractures. sputum culture was positive for methicillin resistant Staph aureus, acineetobacter dhiraj/haem. Blood culture x 2 were no growth, UA no growth, Continue home medicines as previously prescribed GOAL: Clear understanding of disease process INSTRUCTIONS: Physician Discharge Instructions: -Follow-up with PCP in 1 to 2 weeks -Please call Dr. Medina at [phone] if any questions regarding hospital stay -Please call nursing station at [phone] if any nursing or medication questions -Return to the emergency room if symptoms worsen Diet: ADA, low sodium Activity: Fall precautions Vital Signs/Physical Exam: Temp Pulse Resp BP Pulse Ox 98.1 F 68 19 118/56 L 99 03/31/24 08:00 03/31/24 08:23 03/31/24 08:00 03/31/24 08:23 03/31/24 08:00 Laboratory Data at Discharge: WBC 9.40 thou/uL (4.3-10.9) 03/31/24 06:45 Hgb 9.6 g/dL (12.0-15.0) L 03/31/24 06:45 Hct 30.2 % (36.0-45.0) L 03/31/24 06:45 Plt Count 305 thou/uL (152-406) 03/31/24 06:45 PT 12.4 SECONDS (9.5-12.5) 03/29/24 18:20 INR 1.13 03/29/24 18:20 Sodium 136 mEq/L (136-145) 03/31/24 06:45 Potassium 3.6 mEq/L (3.5-5.1) D 03/31/24 06:45 BUN 13 mg/dL (7-18) 03/31/24 06:45 Creatinine 0.66 mg/dL (0.55-1.02) 03/31/24 06:45 Glucose 290 mg/dL (74-106) H 03/31/24 06:45 Magnesium 2.0 mg/dL (1.6-2.4) 03/31/24 06:45 Total Bilirubin 0.3 mg/dL (0.2-1.0) 03/31/24 06:45 AST < 10 U/L (15-37) L 03/31/24 06:45 ALT 18 U/L (13-56) 03/31/24 06:45 Alkaline Phosphatase 68 U/L (45-117) 03/31/24 06:45 Home Medications: Aspirin [Aspirin EC 81 MG] 81 mg PO DAILY 03/26/22 Atorvastatin Calcium 40 mg PO BEDTIME 03/26/22 Docusate [Colace Cap*] 100 mg PO BID 03/26/22 Ergocalciferol (Vitamin D2) [Vitamin D2] 50,000 unit PO Q7D 03/26/22 Fexofenadine HCl [Jeri Allergy] 180 mg PO DAILY 03/26/22 Folic Acid 0.4 mg PO DAILY 03/26/22 Gabapentin 300 mg PO TID 03/26/22 Metformin HCl [Glucophage*] 500 mg PO BID 03/26/22 Calcium Carbonate [Tums Regular*] 500 mg PO BID 03/15/23 Sertraline [Zoloft*] 100 mg PO DAILY 03/15/23 Albuterol Neb [Proventil 0.083% Neb Soln] 2.5 mg NEB [id number] amp 03/18/23 Insulin -Regular Human [Novolin -R*] See Protocol SQ ACHS ml 03/18/23 Arformoterol Tartrate [Brovana] 15 mcg NEB BIDRESP vial.neb 08/16/23 Ammonium Lactate 1 appl TOP BID 08/19/23 Nitroglycerin 0.4 mg SL Q5M PRN MDD 3 01/24/24 Insulin Regular, Human [Novolin R] See Protocol SQ ACHS ml 02/19/24 Kaleb [Kaleb*] 1 pkt PO BID 02/19/24 Mometasone/Formoterol [Dulera 200 Mcg/5 Mcg Inhaler] 2 puff IH BID inhaler 02/19/24 Nystatin Powder [Mycostatin (Powder)*] 1 appl TOP BID bottle 02/19/24 Spironolactone [Aldactone*] 25 mg PO DAILY tab 02/19/24 acetaZOLAMIDE [Diamox*] 250 mg PO DAILY tab 02/19/24 Insulin Glargine,Hum.rec.anlog [Semglee] 45 unit SQ BEDTIME 03/30/24 Diet: ADA Activity: Fall precautions Followup: Dennis Mitchell MD [Primary Care Provider] - Baldemar Mcintyre MD [ACTIVE - CAN ADMIT] - Time spent managing pt's care (in minutes): 55
--- NOTE | 2024-03-31 09:24 | P.PN ---
Date of Service: 03/31/24 Admitted on BiPAP, weaned to O2 Review of Systems Per HPI Physical Examination - Vital Signs Reviewed - Physical Exam General: Alert, oriented x 3 HEENT: Atraumatic, Normocephalic Neck: 2+ carotid pulse no bruit Respiratory: Unlabored, mild expiratory wheeze Cardiovascular: Regular rate/rhythm Capillary refill: <2 Seconds Gastrointestinal: No tenderness, Other Musculoskeletal: Other (Generalized weakness) Neurological: Normal speech, Normal strength at 5/5 x4 extr Assessment And Plan Acute hypoxic hypercapnic respiratory failure On BiPAP Monitor closely on telemetry Bronchodilators as needed Repeat sputum culture empiric Levaquin Acute on chronic CHF possibly diastolic Monitor closely on telemetry Started on aggressive diuresis X-ray findings consistent with CHF Oxygen supplementation Will try to wean down oxygen requirement Continue home medications Titrate as needed Cardiology consult Hypertension Antihypertensives titrated Continue home medications and titrate as needed Hyperlipidemia Continue statin Morbid obesity Advise lifestyle modification Anemia of chronic disease Monitor H&H closely No overt bleeding at this time GI/DVT prophylaxis Advanced directive full code
[2024-03-31] MEDS: levoFLOXacin 750 MG TAB PO SCH (09:29)
[2024-03-31] MEDS: POTASSIUM CL SA 10 MEQ TAB PO ONE (09:29)
--- NOTE | 2024-03-31 16:08 | CON ---
Date of Consultation: 03/31/2024 Reason For Consultation: Shortness of breath. History Of Present Illness: 49-year-old female, history of obesity, hypertension, diabetes, COPD, as thma, congestive heart failure, morbid obesity, presented to the emergency room because of shortness of breath, significant lower extremity edema. Started on IV diuretics and she feels slightly better. The patient is bedbound due to morbid obesity. Past Medical History: As outlined above in the HPI. Medication: Refer to reconciliation sheet for detailed list. Allergies: CODEINE. Family History: No premature coronary artery disease or cancer. Past Surgical History: Tubal ligation. Social History: She does not smoke or drink. Does not use any drugs. Review of Systems: All systems were reviewed and they were negative except as mentioned in the HPI. Physical Examination: Vital Signs: Reviewed. Head and Neck: Pupils are equal, reactive to light. Intact eye movements. No JVD. No cervical lym phadenopathy. Neck is supple. Thyroid is not enlarged. Lungs: Decreased breathing sounds bilaterally. No accessory muscle use or muscle retraction. Heart: Regular rate and rhythm. No extra sounds. Abdomen: Soft. Bowel sounds positive. No rigidity or rebound. Extremities: Edema 3+ bilaterally. She is morbidly obese. Neurologic: Alert, awake, oriented x3. Moving all extremities. Lymph Nodes: No cervical or axillary lymphadenopathy. Investigations: Her BUN is 13, creatinine 0.66, carbon dioxide is more than 45, and hemoglobin is 9. 6, and her cardiac enzymes are negative. Assessment And Plan: 1.Generalized fluid overload condition, probably diastolic heart failure exacerbation. Significant elevation of her CO2 level. I agree with acetazolamide for now and then switch Lasix when CO2 level goes down to in the normal range. 2.Respiratory failure due to the combination of congestive heart failure and obesity hypoventilation syndrome. She needs BiPAP while she is asleep and obtain an echo. Continue diuretics. 3.Hypertension. Blood pressure is controlled. 4.Dyslipidemia, on the statin, to be continued. I recommend DVT prophylaxis for her. 5.Morbid obesity. Low-calorie diet encouraged, and discussed with her. SR/MODL Voice ID: [id number] Report ID: [id number]
[2024-03-31] MEDS ORDERED: WATER FOR INJ,STERILE 10 ML ONE (21:31)
--- NOTE | 2024-04-01 08:20 | P.PN ---
Subjective Date of Service: 04/01/24 Chief Complaint: Respiratory failure No change in patient's condition she continues to use BiPAP carbonate is significantly elevated Review of Systems is unable to be obtained Physical Examination - Vital Signs Temperature: 96.8 F Blood Pressure: 127/63 Pulse: 73 Respirations: 18 Pulse Ox (%): 98 - Physical Exam General: Alert, Delirious Respiratory: Clear to auscultation bilaterally, Diminished Cardiovascular: Edema Gastrointestinal: Soft and benign, Non-distended Assessment And Plan - Current Problems (Diagnosis) (1) Acute and chronic respiratory failure ([id number]) Current Visit: Yes Status: Acute Plan: Patient is admitted with acute on chronic respiratory failure bicarbonate is very elevated start on IV fluids DC spironolactone reduce the dose of Diamox patient's blood sugars are elevated increase insulin not sure about her pneumonia continue with levofloxacin check serum procalcitonin level increase the dose of Lantus to 40 units Qualifiers: Respiratory failure complication: hypoxia and hypercapnia Qualified Code(s): J96.21 - Acute and chronic respiratory failure with hypoxia; J96.22 - Acute and chronic respiratory failure with hypercapnia
[2024-04-01] MEDS: INSULIN GLARGINE 100 UNIT/ML SQ SCH (09:00)
[2024-04-01] MEDS: ACETAZOLAMIDE 500 MG IV IV SCH (09:01)
--- NOTE | 2024-04-01 11:12 | P.PN ---
Subjective Date of Service: 04/01/24 Chief Complaint: Respiratory failure Pt is resting comfortably in bed. She was waiting to be cleaned up. Pt used BIPAP last night. Currently using 4L BNC. No other complaints. Review of Systems General: Unremarkable Eyes: Unremarkable ENT: Unremarkable Respiratory: Shortness of Breath Cardiovascular: Unremarkable Gastrointestinal: Unremarkable Genitourinary: Unremarkable Musculoskeletal: Unremarkable Integumentary: Unremarkable Neurological: Unremarkable Lymphatics: Unremarkable Physical Examination - Vital Signs Temperature: 97.0 F Blood Pressure: 137/68 Pulse: 71 Respirations: 16 Pulse Ox (%): 100 - Physical Exam General: Alert, In no apparent distress, Oriented x3 HEENT: Atraumatic, Normocephalic, PERRLA Neck: Supple, 2+ carotid pulse no bruit, JVD not distended Respiratory: Clear to auscultation bilaterally, Normal air movement Cardiovascular: No edema, Normal pulses, Regular rate/rhythm, Normal S1 S2, Edema Capillary refill: <2 Seconds Gastrointestinal: Normal bowel sounds, Soft and benign, Non-distended, W/out succussion splash Musculoskeletal: No clubbing, No swelling, No contractures Integumentary: No rashes, No breakdown, No significant lesion Neurological: Normal gait, Normal speech, Normal strength at 5/5 x4 extr Lymphatics: No axilla or inguinal lymphadenopathy Assessment And Plan - Plan Acute hypoxic hypercapnic respiratory failure: Due to OHS. Will continue prn BIPAP. Pt is using 4L BNC. continue duoneb, abx and telemetry. Pulm is follo wing. Acute on chronic CHF possibly diastolic: Will continue daily weight, strict I/O and daily weight. Off spironolactone. Hypertension: Will continue home meds. Hyperlipidemia: Continue statin Morbid obesity: Pt was advised to lose weight. DM II: COntinue accuchek, SSI, lantus 40u daily and ADA diet. A1c is pending Anemia of chronic disease: hgb is 9.6. Will monitor H/H. GI ppx: protonix DVT ppx: SCD Code: full code
[2024-04-01] MEDS: NACHLORIDE 0.45% 1,000 ML IV SCH (12:04)
--- NOTE | 2024-04-01 15:01 | EKG ---
Test Date: 2024-03-29 Test Time: 18:07:17 Physician Office Nurse: DENNY MEASUREMENT RESULTS: Intervals: Rate: 105 NM: 178 QRSD: 92 QT: 334 QTc: 441 [place]: P: 55 NM: 178 QRS: 82 T: 47 INTERPRETIVE STATEMENTS: Sinus tachycardia Otherwise normal ECG Compared to ECG 01/24/2024 11:28:51 Sinus rhythm no longer present Right-axis deviation no longer present Electronically Signed On 04-01-24 14:53:32 CDT by Marlon Cervantes
[2024-04-01 15:59] LABS: Anion Gap 5.8 mEq/L (5.0-15.0); Potassium 3.8 mEq/L (3.5-5.1)
--- NOTE | 2024-04-01 19:20 | PN ---
Date of Progress Note: 04/01/2024 Subjective: Seen by bedside. Breathing is better. Review of Systems: No chest pain. She has shortness of breath only with activities, but she does not move. No nausea, vomiting, or diarrhea. No abdominal pain. No dysuria, polyuria, or urinary urgency. All other syst ems were reviewed, they are negative. Objective: Vital Signs: Reviewed. Head and Neck: Pupils are equal, reactive to light. Intact eye movements. No JVD. No cervical lym phadenopathy. Neck is supple. Thyroid is not enlarged. Lungs: Clear to auscultation bilaterally. No rhonchi, wheezing, or crackles. No accessory muscle u se. Heart: Regular rate and rhythm. No extra sounds. Abdomen: Soft, nontender. Bowel sounds positive. No organomegaly. No masses or hernia. No rigidi ty or rebound. Extremities: No clubbing or cyanosis. Intact pulses. Skin: No rash. No nodule. Neuro: Alert, awake. No acute focal deficits appreciated. Investigations: Labs were not done today. Assessment And Recommendations: 1.Acute on chronic diastolic heart failure exacerbation. CO2 level is elevated. Continue acetazola mide. Lasix is off. Recheck BMP today and monitor closely. 2.Morbid obesity. 3.Dyslipidemia, on statin, to continue. 4.Hypertension. Blood pressure is controlled. Continue current management. SR/MODL Voice ID: [id number] Report ID: [id number]
[2024-04-02 03:52] LABS: Absolute Basophils 0.1 K/uL (0-0.5); Absolute Eosinophils 0.3 K/uL (0-0.5); Absolute Lymphocytes (CBC) 1.4 K/uL (0.7-4.9); Absolute Monocytes 0.3 K/uL (0.1-1.3); Basophils % 0.7 % (0-1.3); Eosinophils % 4.1 % (0-4.4); Hemoglobin 9.6 g/dL (12.0-15.0); Lymphocytes % 17.1 % (15.3-44.8); MCHC 31.9 g/dL (32.0-36.0); MPV 8.4 fL (7.6-11.3); Monocytes % 3.7 % (3.3-12.3); Neutrophils % 74.4 % (41.7-73.7); Platelets 276 thou/uL (152-406); RBC Red Blood Cell Count 3.41 M/uL (3.86-4.86); Red Cell Distribution Width 18.3 % (12.1-15.2)
[2024-04-02 04:13] LABS: Anion Gap 5.5 mEq/L (5.0-15.0); Potassium 3.5 mEq/L (3.5-5.1)
[2024-04-02] MEDS: POTASSIUM CL SA 10 MEQ TAB PO ONE (08:36)
--- NOTE | 2024-04-02 11:01 | P.PN ---
Subjective Date of Service: 04/02/24 Chief Complaint: Respiratory failure Pt is resting comfortably in bed. She used BIPAP last night. Currently using 4L BNC. She complains of diarrhea. Will check C diff before giving loperamide. No other complaints. Review of Systems General: Unremarkable Eyes: Unremarkable ENT: Unremarkable Respiratory: Unremarkable Cardiovascular: Unremarkable Gastrointestinal: Diarrhea Genitourinary: Unremarkable Musculoskeletal: Unremarkable Integumentary: Unremarkable Neurological: Unremarkable Lymphatics: Unremarkable Physical Examination - Vital Signs Temperature: 97.0 F Blood Pressure: 104/53 Pulse: 74 Respirations: 17 Pulse Ox (%): 97 - Physical Exam General: Alert, In no apparent distress, Oriented x3, Obese HEENT: Atraumatic, Normocephalic, PERRLA Neck: Supple, 2+ carotid pulse no bruit Respiratory: Clear to auscultation bilaterally, Normal air movement, Diminished Cardiovascular: No edema, Normal pulses, Regular rate/rhythm, Normal S1 S2 Capillary refill: <2 Seconds Gastrointestinal: Normal bowel sounds, Soft and benign, Non-distended Musculoskeletal: No clubbing, No swelling, No contractures Integumentary: No rashes, No breakdown, No significant lesion Neurological: Normal gait, Normal speech, Normal strength at 5/5 x4 extr Lymphatics: No axilla or inguinal lymphadenopathy Assessment And Plan - Plan Acute hypoxic hypercapnic respiratory failure: Due to OHS. Will continue prn BIPAP. Pt is using 4L BNC. continue duoneb, abx and telemetry. Pulm is following. Acute on chronic CHF possibly diastolic: Will continue daily weight, strict I/O and daily weight. Off spironolactone. Diarrhea: Will check C diff before giving loperamide. Hypertension: Will continue home meds. Hyperlipidemia: Continue statin Morbid obesity: Pt was advised to lose weight. DM II: COntinue accuchek, SSI, lantus 40u daily and ADA diet. A1c is pending Anemia of chronic disease: hgb is 9.6. Will monitor H/H. GI ppx: protonix DVT ppx: SCD Code: full code
[2024-04-02] MEDS: ONDANSETRON 4 MG/2 ML VIAL IV PRN (12:00)
--- NOTE | 2024-04-02 13:26 | ECHO ---
HEIGHT: 5 ft 7 in WEIGHT: 475 lb 0 oz DATE OF STUDY: 04/02/[address]: Leroy Marrero DO 2-DIMENSIONAL: YES M.MODE: YES DOPPLER: YES COLOR FLOW: YES TDS: YES PORTABLE: YES DEFINITY: BUBBLE STUDY: DIAGNOSIS: CONGESTIVE HEART FAILURE CARDIAC HISTORY: CATHERIZATION: NO SURGERY: NO PROSTHETIC VALVE: NO PACEMAKER: NO MEASUREMENTS (cm) DIASTOLIC (NORMALS) SYSTOLIC (NORMALS) IVSd 1.2 (0.6-1.2) LA Diam 4.2 (1.9-4.0) LVEF 60-65% LVIDd 4.7 (3.5-5.7) LVIDs 3.5 (2.0-3.5) %FS 26% LVPWd 1.5 (0.6-1.2) Ao Diam 2.6 (2.0-3.7) 2 DIMENSIONAL ASSESSMENT: RIGHT ATRIUM: NORMAL LEFT ATRIUM: NORMAL RIGHT VENTRICLE: NORMAL LEFT VENTRICLE: NORMAL TRICUSPID VALVE: TRACE TRICUSPID REGURGITATION MITRAL VALVE: TRADE MITRAL REGURGITATION PULMONIC VALVE: NORMAL AORTIC VALVE: NORMAL PERICARDIAL EFFUSION: NONE AORTIC ROOT: NORMAL LEFT VENTRICULAR WALL MOTION: NORMAL DOPPLER/COLOR FLOW: NORMAL COMMENTS: 1. TECHNICALLY DIFFICULT STUDY 2. NORMAL LEFT VENTRICULAR SYSTOLIC FUNCTION, EJECTION FRACTION 60-65%, NORMAL WALL MOTION 3. NORMAL DIASTOLIC FUNCTION 4. MILD PULMONARY HYPERTENSION (RIGHT VENTRICULAR SYSTOLIC PRESSURE 30-35 mmHg) TECHNOLOGIST: KAROLINA HEWITT/ BILLY MINAYA
[2024-04-02 14:33] LABS: C.diff Antigen/Toxin Ag neg : Tox neg (NEG : NEG); CDIFF INTERNAL NEG CONTROL White Background (WHITE BKGD); STOOL CONSISTENCY Liquid/Semi-Solid
[2024-04-02] MEDS: LOPERAMIDE HCL 2 MG CAPSULE PO PRN (16:35)
--- NOTE | 2024-04-02 19:11 | PN ---
Date of Progress Note: 04/02/2024 Subjective: Seen by bedside. Doing clinically well. Her swelling is improving. Review of Systems: No chest pain. No shortness of breath. No nausea, vomiting, diarrhea. Generalized weakness is pres ent. She is bedbound due to morbid obesity. Physical Examination: Vital signs: Reviewed. Head and Neck: Pupils are equal, reactive to light. Intact eye movements. No JVD. No cervical lym phadenopathy. Neck is supple. Thyroid is not enlarged. Lungs: Decreased breath sounds. No accessory muscle use or muscle retraction. Heart: Regular. No extra sounds. Abdomen: Soft, nontender. Bowel sounds positive. No organomegaly. No masses or hernia. No rigidi ty or rebound. Extremities: No clubbing or cyanosis. Trace edema. Neurologic: Alert, awake, oriented x3. No acute focal deficits appreciated. Investigations: CO2 level is 36, BUN 11, creatinine 0.5. Hemoglobin is 9.6. Assessment/recommendation: 1.Acute on chronic diastolic heart failure exacerbation, improving. I would resume Lasix 40 mg by m outh daily. Continue acetazolamide for one more day. Check BMP if CO2 is normalized and switch to o nly Lasix. 2.Dyslipidemia, on statin. 3.Hypertension, blood pressure controlled. Cardiology will sign off. To follow up as an outpatient . /MARCUS Voice ID: [id number] Report ID: [id number]
[2024-04-03 03:54] LABS: Absolute Basophils 0.1 K/uL (0-0.5); Absolute Eosinophils 0.4 K/uL (0-0.5); Absolute Lymphocytes (CBC) 1.4 K/uL (0.7-4.9); Absolute Monocytes 0.3 K/uL (0.1-1.3); Absolute Neutrophil 5.8 K/uL (1.8-8.0); Basophils % 0.9 % (0-1.3); Eosinophils % 4.5 % (0-4.4); Hematocrit 31.7 % (36.0-45.0); Hemoglobin 10.1 g/dL (12.0-15.0); Lymphocytes % 17.9 % (15.3-44.8); MCHC 32.1 g/dL (32.0-36.0); MCV 87.5 fL (80-100); MPV 8.2 fL (7.6-11.3); Monocytes % 4.2 % (3.3-12.3); Neutrophils % 72.5 % (41.7-73.7); Nucleated Red Blood Cells % 0.1 % (0-0); Platelets 274 thou/uL (152-406); RBC Red Blood Cell Count 3.62 M/uL (3.86-4.86)
[2024-04-03 04:04] LABS: Anion Gap 5.1 mEq/L (5.0-15.0); Potassium 4.1 mEq/L (3.5-5.1)
[2024-04-03 07:52] VITALS: O2SAT 97
[2024-04-03] MEDS: acetaZOLAMIDE 250 MG TAB PO SCH (08:16)
[2024-04-03 10:22] VITALS: BMI 74.0
--- NOTE | 2024-04-03 10:49 | P.DS ---
Admission Date: 03/29/24 Discharge Date: 04/03/24 Disposition: TRANSFER TO SENIOR CARE Discharge Condition: GOOD Reason for Admission: Respiratory failure Brief History of Present Illness: 49 yrs old Female with past medical history of morbid obesity, hypertension, diabetes, depression, COPD, asthma, CHF came to ER with shortness of breath. Patient is drowsy at the time of interview and hence most of the history is ob tained from chart review and also talking to the ER physician. Patient denies any chest pain. No fever or chills. Patient started having shortness of breath even with minimal activities. Worsened over the last 24 hours and was brought to ER. Patient also has a history of sleep apnea and has been on BiPAP She had similar episodes in the past as well. Denies any nausea vomiting or diarrhea. No sick contacts. Patient was assessed in the ER and is admitted for further management of CHF exacerbation and acute on chronic hypercapnic hypoxic respiratory failure Hospital Course: Pt is a 49 yo female with past medical history of morbid obesity, hypertension, diabetes, depression, COPD, asthma, and CHF who presented with shortness of breath due to acute CHF exacerbation. The SOB progressively worsened and pt came to the ER for evaluation. Patient was assessed in the ER and she was admitted for further management of CHF exacerbation and acute on chronic hypercapnic hypoxic respiratory failure. The SOB significantly improved with diuretic. She continued to use BIPAp at night and 4L BNC during the day. She had diarrhea and we ruled out C diff. The diarrhea resolved with loperamide. We continued home med for other chronic medical problems. Pt was in NAD prior to discharge. Vital Signs/Physical Exam: Temp Pulse Resp BP Pulse Ox 97.6 F 72 16 110/60 99 04/03/24 08:00 04/03/24 08:00 04/03/24 08:00 04/03/24 08:00 04/03/24 08:00 Laboratory Data at Discharge: WBC 7.90 thou/uL (4.3-10.9) 04/03/24 03:05 Hgb 10.1 g/dL (12.0-15.0) L 04/03/24 03:05 Hct 31.7 % (36.0-45.0) L 04/03/24 03:05 Plt Count 274 thou/uL (152-406) 04/03/24 03:05 PT 12.4 SECONDS (9.5-12.5) 03/29/24 18:20 INR 1.13 03/29/24 18:20 Sodium 137 mEq/L (136-145) 04/03/24 03:05 Potassium 4.1 mEq/L (3.5-5.1) D 04/03/24 03:05 BUN 8 mg/dL (7-18) 04/03/24 03:05 Creatinine 0.53 mg/dL (0.55-1.02) L 04/03/24 03:05 Glucose 164 mg/dL (74-106) H 04/03/24 03:05 Magnesium 2.0 mg/dL (1.6-2.4) 03/31/24 06:45 Total Bilirubin 0.3 mg/dL (0.2-1.0) 03/31/24 06:45 AST < 10 U/L (15-37) L 03/31/24 06:45 ALT 18 U/L (13-56) 03/31/24 06:45 Alkaline Phosphatase 68 U/L (45-117) 03/31/24 06:45 Home Medications: Aspirin [Aspirin EC 81 MG] 81 mg PO DAILY 03/26/22 Atorvastatin Calcium 40 mg PO BEDTIME 03/26/22 Docusate [Colace Cap*] 100 mg PO BID 03/26/22 Ergocalciferol (Vitamin D2) [Vitamin D2] 50,000 unit PO Q7D 03/26/22 Fexofenadine HCl [Jeri Allergy] 180 mg PO DAILY 03/26/22 Folic Acid 0.4 mg PO DAILY 03/26/22 Gabapentin 300 mg PO TID 03/26/22 Metformin HCl [Glucophage*] 500 mg PO BID 03/26/22 Calcium Carbonate [Tums Regular*] 500 mg PO BID 03/15/23 Sertraline [Zoloft*] 100 mg PO DAILY 03/15/23 Albuterol Neb [Proventil 0.083% Neb Soln] 2.5 mg NEB [id number] amp 03/18/23 Insulin -Regular Human [Novolin -R*] See Protocol SQ ACHS ml 03/18/23 Arformoterol Tartrate [Brovana] 15 mcg NEB BIDRESP vial.neb 08/16/23 Ammonium Lactate 1 appl TOP BID 08/19/23 Nitroglycerin 0.4 mg SL Q5M PRN MDD 3 01/24/24 Insulin Regular, Human [Novolin R] See Protocol SQ ACHS ml 02/19/24 Kaleb [Kaleb*] 1 pkt PO BID 02/19/24 Mometasone/Formoterol [Dulera 200 Mcg/5 Mcg Inhaler] 2 puff IH BID inhaler 02/19/24 Nystatin Powder [Mycostatin (Powder)*] 1 appl TOP BID bottle 02/19/24 acetaZOLAMIDE [Diamox*] 250 mg PO DAILY tab 02/19/24 Insulin Glargine,Hum.rec.anlog [Semglee] 45 unit SQ BEDTIME 03/30/24 levoFLOXacin [Levaquin*] 750 mg PO DAILY 4 Days #4 tab 04/03/24 New Medications: levoFLOXacin [Levaquin*] 750 mg PO DAILY 4 Days #4 tab Physician Discharge Instructions: Continue home meds as prescribed. Take levaquin 750mg po daily for 4 more days. Follow up with PCP within 1 - 2 weeks. Diet: ADA Activity: Fall precautions Followup: Baldemar Mcintyre MD [ACTIVE - CAN ADMIT] - 1-2 Weeks Dennis Mitchell MD [Primary Care Provider] - 1-2 Weeks
--- NOTE | 2024-04-03 13:16 | P.PN ---
Subjective Date of Service: 04/03/24 Chief Complaint: Respiratory failure Doing much better more alert Review of Systems General: Weakness Respiratory: Shortness of Breath Physical Examination - Vital Signs Temperature: 96.9 F Blood Pressure: 115/56 Pulse: 85 Respirations: 16 Pulse Ox (%): 97 - Physical Exam General: Alert, In no apparent distress, Oriented x3 Respiratory: Clear to auscultation bilaterally, Diminished Cardiovascular: No edema, Regular rate/rhythm, Normal S1 S2 Assessment And Plan - Current Problems (Diagnosis) (1) Acute and chronic respiratory failure ([id number]) Current Visit: Yes Status: Acute Plan: Doing much better .DC homeon Diamox only . Avoid antibiotics. Continuw qiht bronchodilatos/ Labs reviewed Qualifiers: Respiratory failure complication: hypoxia and hypercapnia Qualified Code (s): J96.21 - Acute and chronic respiratory failure with hypoxia; J96.22 - Acute and chronic respiratory failure with hypercapnia
[2024-04-03 21:18] VITALS: BP 109/52; TEMP 97.4
== END 2024-04-04 01:40 | DRG 291 ==
LOC: ER 18:02 → ERHOLD 19:57 → 2ND 03-30 10:40
PROVIDERS: ADMIT Family Medicine; ATTEND Hospitalist
PROC: 4A033R1 Measurement of Arterial Saturation, Peripheral, Percutaneous Approach (ICD-10-PCS; principal; 2024-03-29)
PROC: 5A09457 Assistance with Respiratory Ventilation, 24-96 Consecutive Hours, Continuous Positive Airway Pressure (ICD-10-PCS; 2024-04-01)
DX: I11.0 Hypertensive heart disease with heart failure (principal); I50.33 Acute on chronic diastolic (congestive) heart failure; J96.21 Acute and chronic respiratory failure with hypoxia; J96.22 Acute and chronic respiratory failure with hypercapnia; E66.2 Morbid (severe) obesity with alveolar hypoventilation; Z68.45 Body mass index [BMI] 70 or greater, adult; K21.9 Gastro-esophageal reflux disease without esophagitis; J44.9 Chronic obstructive pulmonary disease, unspecified; E78.5 Hyperlipidemia, unspecified; D63.8 Anemia in other chronic diseases classified elsewhere; E11.65 Type 2 diabetes mellitus with hyperglycemia; B95.62 Methicillin resistant Staphylococcus aureus infection as the cause of diseases classified elsewhere; R19.7 Diarrhea, unspecified; Z88.5 Allergy status to narcotic agent; Z79.4 Long term (current) use of insulin; Z88.1 Allergy status to other antibiotic agents; Z88.8 Allergy status to other drugs, medicaments and biological substances; Z74.01 Bed confinement status; Z79.82 Long term (current) use of aspirin; Z79.84 Long term (current) use of oral hypoglycemic drugs; Z79.899 Other long term (current) drug therapy; Z87.891 Personal history of nicotine dependence; Z91.048 Other nonmedicinal substance allergy status; Z91.199 Patient's noncompliance with other medical treatment and regimen due to unspecified reason
CPT/HCPCS: 36415; 36600; 51702; 71045; 80048; 80053; 80076; 81001; 82805; 82947; 83036; 83605; 83735; 83880; 84145; 84484; 85025; 85610; 87040; 87045; 87046; 87086; 87088; 87324; 93005; 93306; 94640; 94660; 94760; 96365; 96372; 96375; 99285; J1120; J1650; J1940; J2405; J2919; J7605; J7614; J7626; J7644

== ENCOUNTER 2024-10-08 13:24 | Emergency (ER) | payer OTHER ==
--- OUTSIDE RECORDS SUMMARY | 2024-10-08 13:29 | XMS REPORT | Continuity of Care Document ---
Author Name Unknown Address [address] [facility] [address] [place] [address] [facility] thconnect Address [address] [facility] [address] [place] [address] Care Team Providers Care Lathe Set Up Operator Name Role Phone GC_BAHC_Todd_J Attending Clinician Unavailable Jojo Villalpando Attending Clinician [phone] Dennis Talley Attending Clinician [phone] GC_BAHC_Spangler_G Attending Clinician Unavailab PILAR Samuel Attending Clinician Unavailable DO ELENA DOUGLAS Attending Clinician Unavailable DR VELMA COREY Attending Clinician Unavailab mike GRESHAM, DR DUMONT Attending Clinician Unav JUSTO Andrews Attending Clinician Unavailable GC_BAHC_Todd_Teresa Admitting Clinician Unavailable GC_BAHC_Spangler_G Admitting Clinician Unavailab PIALR Samuel Admitting Clinician Unavailable DO ELENA DOUGLAS Admitting Clinician Unavailable DR VELMA COREY Admitting Clinician Unavailab mike GRESHAM, DR DUMONT Admitting Clinician Unav JUSTO Andrews Admitting Clinician Unavailable LAUREN PRESTON Admitting Clinician Unavailab le Payers Payer Name Policy Type Policy Number Effective Date Expirati on Date Source [facility] [place] [place] [id number] 2023 00:00:00 [facility] [id number] [place] [id number] Problems Condition Name Condition Details Condition Category Status Onset Date Resolution Date Last Treatment Date Treating Clinician Comments Source Dental caries Dental Caries Problem Active 2023-10 00:00: 00 [facility] Irritant contact dermatitis Irritant Contact Dermatitis Problem Active 2023-10 00:00: 00 [facility] Tenosynovi tis of right radial styloid Tenosynovi tis of Right Radial Styloid Problem Active 2023-10 2-23 00:00: 00 [facility] Inflammato ry dermatosis Inflammato ry Dermatosis Problem Active 2023-10 2 00:00: 00 [facility] Osteoarthr itis of joint of right shoulder region Osteoarthr itis of Joint of Right Shoulder Region Problem Active 9 00:00: 00 [facility] Inflammati on of joint of right shoulder region Inflammati on of Joint of Right Shoulder Region Problem Active 8 00:00: 00 [facility] Pain of right shoulder region Pain of Right Shoulder Region Problem Active 8 00:00: 00 [facility] Stasis dermatitis of lower limb due to chronic peripheral venous hypertensi on Stasis Dermatitis of Lower Limb Due to Chronic Peripheral Venous Hypertensi on Problem Active 9 00:00: 00 [facility] Chronic hypercapni c respirator y failure Chronic Hypercapni c Respirator y Failure Problem Active 7-06 00:00: 00 [facility] Gastroesop hageal reflux disease Gastroesop hageal Reflux Disease Problem Active 6-14 00:00: 00 [facility] Lipodermat osclerosis of [...] Obesity with Alveolar Hypoventil ation Problem Active 25 00:00: 00 [facility] 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 Problem Active 2021-10 1-04 00:00: 00 [facility] Lives in jail Lives in [facility] Problem Active 07-11 00:00: 00 [facility] Need for personal care assistance Need for Personal Care Assistance Problem Active 07-11 00:00: 00 [facility] Chronic obstructiv e pulmonary disease Chronic Obstructiv e Pulmonary Disease Problem Active 04-10 00:00: 00 [facility] Moderate protein-ca jose francisco malnutriti on (weight for age 60-74 percent of standard) Moderate Protein-ca jose francisco Malnutriti on (Weight for Age 60-74 Percent of Standard) Problem Active 6-05 00:00: 00 [facility] Folic acid deficiency Folic Acid Deficiency Problem Active 6-05 00:00: 00 [facility] Vitamin D deficiency Vitamin D Deficiency Problem Active 605 00:00: 00 [facility] Peripheral angiopathy due to diabetes mellitus Peripheral Angiopathy Due to Diabetes Mellitus Problem Active 6-04 00:00: 00 [facility] Anemia of chronic disease Anemia of Chronic Disease Problem Active 5- 00:00: 00 [facility] Secondary hyperaldos teronism Secondary Hyperaldos teronism Problem Active 420 00:00: 00 [facility] Body mass index 40+ - severely obese Body Mass Index 40+ - Severely Obese Problem Active 01-25 00:00: 00 [facility] Type 2 diabetes mellitus Type 2 Diabetes Mellitus Problem Active 4 00:00: 00 [facility] Hyperlipid emia Hyperlipid emia Problem Active 411 00:00: 00 [facility] Bipolar disorder Bipolar Disorder Problem Active 4 00:00: 00 [facility] Hypertensi ve heart disease with congestive heart failure Hypertensi ve Heart Disease with Congestive Heart Failure Problem Active 4-11 00:00: 00 [facility] Bed-ridden Bed-ridden Problem Active 411 00:00: 00 [facility] Hypercapni a Hypercapni a Problem Active 4-12 00:00: [address] [facility] ([facility] Acute respirator y failure with hypoxia Acute respirator y failure with hypoxia Problem Active 412 00:00: [address] [facility] (LUF/LI V/SA) Venous stasis ulceration Venous stasis ulceration Problem Active 2- 00:00: [address] [facility] (LUF/LI V/SA) Cellulitis Cellulitis Problem Active 2016-10 2 00:00: [address] [facility] (LUF/LI V/SA) Hypertensi ve disorder Hypertensi ve disorder Problem [facility] ([facility] Venous varices Venous varices Problem Active [facility] (LUF/LI V/SA) Deep venous thrombosis of lower extremity (disorder) Deep venous thrombosis of lower extremity (disorder) Problem Active [facility] (LUF/LI V/SA) Ligation of fallopian tube Ligation of fallopian tube [facility]) Cholecyste ctomy Cholecyste ctomy Problem Active [facility] (LUF/LI V/[facility]) Secondary immune deficiency disorder Secondary Immune Deficiency Disorder Problem Active [facility] Hypercoagu lability state Hypercoagu lability State Problem Active [facility] Double incontinen ce Double Incontinen ce Problem Active [facility] Allergies, Adverse Reactions, Alerts Allergy Name Allergy Type Status Severity Reaction(s) Onset Date Inactive Date Treating Clinician Comments Source Codeine DA Active Unknown [facility] (LUF/[facility] V/[facility]) adhesive tape DA Active Unknown [facility] (LUF/LI V/SA) Cephalex in DA Active Unknown [facility] (LUF/LI V/SA) Tylenol DA Active Unknown [facility] (LUF/LI V/SA) ADHESIVE TAPE Allergy to substanc e Active [facility] Cephalex in Allergy to substanc e Active [facility] Codeine Allergy to substanc e Active [facility] Tylenol Allergy to substanc e Active [facility] Social History Smoking Status Start Date Stop Date Source Never smoker [facility] (LUF/[place]) Former Smoker [facility] Medications Ordered Medication Name Filled Medication Name Start Date Stop Date Current Medication? Ordering Clinician Indication Dosage Frequency Signature (SIG) Comments Components Source ergocalcife rol (vitamin D2) 1,250 mcg (50,000 unit) capsule ergocalcife rol (vitamin D2) 1,250 mcg (50,000 unit) capsule 03-12 00:00: 00 No ergocalcif kristen (vitamin D2) 1,250 mcg (50,000 unit) capsule [facility] atorvastati n 40 MG Oral Tablet atorvastati n 40 MG Oral Tablet Yes 40mg 1xD [facility] Budesonide Budesonide Yes 2 2xD inha led 2 times per day [facility]/LI V/SA) Clindamycin 300 MG Oral Capsule Clindamycin 300 MG Oral Capsule Yes 300mg 4xD orally 4 times per day [facility]/LI V/SA) lasix lasix Yes 80 1xD orally daily [facility] (F/LI V/SA) Lisinopril 5 MG Oral Tablet Lisinopril 5 MG Oral Tablet Yes 5mg 1xD orally daily [facility]/LI V/SA) Metformin hydrochlori de 500 MG Oral Tablet Metformin hydrochlori de 500 MG Oral Tablet Yes 500mg 2xD orally 2 times per day [facility] (F[facility]LI [facility]) predniSONE 10 mg predniSONE 10 mg Yes 1 orally per package directions (2 pills a day for 1 day then 1 pill a day for 1 day then 1/2 pill a day for 1 day and then stop) [facility]/LI V/SA) acetazolami de 250 mg tablet Take 1 tablet every day by oral route. acetazolami de 250 mg tablet Take 1 tablet every day by oral route. No 1 Q1D acetazolam edmond 250 mg tablet Take 1 tablet every day by oral route. [facility] albuterol sulfate 2.5 mg/3 mL (0.083 [...] 6 hours by inhalation route as needed. [facility] Jeri Allergy 180 mg tablet Take 1 tablet every day by oral route. Jeri Allergy 180 mg tablet Take 1 tablet every day by oral route. No 1 Q1D Jeri Allergy 180 mg tablet Take 1 tablet every day by oral route. [facility] ammonium lactate 12 % topical cream [...] 1 tablet every day by oral route. [facility] atorvastati n 40 mg tablet Take 1 tablet every day by oral route at bedtime for 30 days. atorvastati n 40 mg tablet Take 1 tablet every day by oral route at bedtime for 30 days. No atorvastat in 40 mg tablet Take 1 tablet every day by oral route at bedtime for 30 days. [facility] Colace 100 mg capsule Take 1 capsule every day by oral route. Colace 100 mg capsule Take 1 capsule every day by oral route. No 1capsul e(s) Q1D Colace 100 mg capsule Take 1 capsule every day by oral route. [facility] ferrous sulfate 324 mg (65 mg iron) tablet,kit yed release Take 1 tablet every day by oral route. ferrous sulfate 324 mg (65 mg iron) tablet,kit yed release Take 1 tablet every day by oral route. No 1 Q1D ferrous sulfate 324 mg (65 mg iron) tablet,del ayed release Take 1 tablet every day by oral route. [facility] folic acid 400 mcg tablet Take 1 tablet every day by oral route. folic acid 400 mcg tablet Take 1 tablet every day by oral route. No 1 Q1D folic acid 400 mcg tablet Take 1 tablet every day by oral route. [facility] gabapentin 300 mg capsule Take 1 capsule 3 times a day by oral route for 30 days. gabapentin 300 mg capsule Take 1 capsule 3 times a day by oral route for 30 days. No gabapentin 300 mg capsule Take 1 capsule 3 times a day by oral route for 30 days. [facility] lidocaine 5 % topical patch lidocaine 5 % topical patch No lidocaine 5 % topical patch [facility] metformin 500 mg tablet Take 1 tablet twice a day by oral route for 30 days. metformin 500 mg tablet Take 1 tablet twice a day by oral route for 30 days. No metformin 500 mg tablet Take 1 tablet twice a day by oral route for 30 days. [facility] nitroglycer in 0.4 mg sublingual tablet [...] insulin pen per sliding scale [facility] ondansetron HCl 4 mg tablet ondansetron HCl 4 mg tablet No ondansetro n HCl 4 mg tablet [facility] sertraline 100 mg tablet Take 1 tablet every day by oral route for 30 days. sertraline 100 mg tablet Take 1 tablet every day by oral route for 30 days. No sertraline 100 mg tablet Take 1 tablet every day by oral route for 30 days. [facility] Tums Extra Strength Smoothies 300 mg (as [...] puffs twice a day by inhalation route. [facility] Nystop 100,000 unit/gram topical powder Nystop 100,000 unit/gram topical powder No Nystop 100,000 unit/gram topical powder [facility] insulin glargine (U-100) 100 unit/mL (3 mL) subcutaneou s pen Inject 51 units every day by subcutaneou s route at bedtime. insulin glargine (U-100) 100 unit/mL (3 mL) subcutaneou s pen Inject 51 units every day by subcutaneou s route at bedtime. No 51unit( s) Q1D insulin glargine (U-100) 100 unit/mL (3 mL) subcutaneo us pen Inject 51 units every day by subcutaneo us route at bedtime. [facility] prednisone 5 mg tablet prednisone 5 mg tablet No prednisone 5 mg tablet [facility] Lantus U-100 Insulin 100 unit/mL subcutaneou s solution Lantus U-100 Insulin 100 unit/mL subcutaneou s solution No Lantus U-100 Insulin 100 unit/mL subcutaneo us solution [facility] Albuterol HFA Inhaler 90 mcg/actuati on Albuterol [...] [facility] ([facility] Immunizations Ordered Immunization Name Filled Immunization Name Date Status Comments Source influenza, unspecified formulation influenza, unspecified formulation Unknown Completed [facility] pneumococcal polysaccharide PPV23 pneumococcal polysaccharide PPV23 Unknown Completed [facility] influenza, injectable, quadrivalent influenza, injectable, quadrivalent Unknown Completed [facility] COVID-19 (SARS-COV-2) vaccine, unspecified COVID-19 (SARS-COV-2) vaccine, unspecified Unknown Completed [facility] Vital Signs Vital Name Observation Time Observation Value Comments S mateuszce Body Weight 2024-10-07 00:00:00 6864 [oz_av] [facility] BMI (Body Mass Index) 2024-10-07 00:00:00 69.2 kg/m2 [facility] BP Diastolic 2024-10-07 00:00:00 74 mm[Hg] [facility] BP Systolic 2024-10-07 00:00:00 113 mm[Hg] [facility] Height 2024-10-07 00:00:00 66 [in_i] [facility] Body Weight 2024-08-22 00:00:00 6784 [oz_av] [facility] BMI (Body Mass Index) 2024-08-22 00:00:00 68.4 kg/m2 [facility] BP Diastolic 2024-08-22 00:00:00 60 mm[Hg] [facility] Height 2024-08-22 00:00:00 66 [in_i] [facility] BP Systolic 2024-08-22 00:00:00 109 mm[Hg] [facility] BMI (Body Mass Index) 2024-08-19 00:00:00 68.4 kg/m2 [facility] Body Weight 2024-08-19 00:00:00 6784 [oz_av] [facility] BP Diastolic 2024-08-19 00:00:00 68 mm[Hg] [facility] BP Systolic 2024-08-19 00:00:00 101 mm[Hg] [facility] Height 2024-08-19 00:00:00 66 [in_i] [facility] BMI (Body Mass Index) 2024-07-19 00:00:00 68.4 kg/m2 [facility] BP Diastolic 2024-07-19 00:00:00 60 mm[Hg] [facility] Body Weight 2024-07-19 00:00:00 6784 [oz_av] [facility] BP Systolic 2024-07-19 00:00:00 109 mm[Hg] [facility] Height 2024-07-19 00:00:00 66 [in_i] [facility] BMI (Body Mass Index) 2024-06-28 00:00:00 68.8 kg/m2 [facility] Height 2024-06-28 00:00:00 66 [in_i] [facility] BP Systolic 2024-06-28 00:00:00 109 mm[Hg] [facility] Body Weight 2024-06-28 00:00:00 6816 [oz_av] [facility] BP Diastolic 2024-06-28 00:00:00 60 mm[Hg] [facility] BP Systolic 2024-06-20 00:00:00 115 mm[Hg] [facility] Body Weight 2024-06-20 00:00:00 6752 [oz_av] [facility] Height 2024-06-20 00:00:00 66 [in_i] [facility] BP Diastolic 2024-06-20 00:00:00 65 mm[Hg] [facility] BMI (Body Mass Index) 2024-06-20 00:00:00 68.1 kg/m2 [facility] Height 2024-06-03 00:00:00 66 [in_i] [facility] BMI (Body Mass Index) 2024-06-03 00:00:00 67.8 kg/m2 [facility] BP Diastolic 2024-06-03 00:00:00 65 mm[Hg] [facility] Body Weight 2024-06-03 00:00:00 6724 [oz_av] [facility] BP Systolic 2024-06-03 00:00:00 113 mm[Hg] [facility] BP Diastolic 2024-04-29 00:00:00 60 mm[Hg] [facility] Height 2024-04-29 00:00:00 66 [in_i] [facility] Body Weight 2024-04-29 00:00:00 7104 [oz_av] [facility] BMI (Body Mass Index) 2024-04-29 00:00:00 71.7 kg/m2 [facility] BP Systolic 2024-04-29 00:00:00 107 mm[Hg] [facility] BP Systolic 2024-04-25 00:00:00 110 mm[Hg] [facility] Height 2024-04-25 00:00:00 66 [in_i] [facility] BMI (Body Mass Index) 2024-04-25 00:00:00 70.9 kg/m2 [facility] BP Diastolic 2024-04-25 00:00:00 60 mm[Hg] [facility] Body Weight 2024-04-25 00:00:00 7028 [oz_av] [facility] Height 2024-04-15 00:00:00 66 [in_i] [facility] Body Weight 2024-04-15 00:00:00 7028 [oz_av] [facility] BMI (Body Mass Index) 2024-04-15 00:00:00 70.9 kg/m2 [facility] BP Systolic 2024-04-15 00:00:00 124 mm[Hg] [facility] BP Diastolic 2024-04-15 00:00:00 61 mm[Hg] [facility] Height 2024-04-12 00:00:00 66 [in_i] [facility] Body Weight 2024-04-12 00:00:00 7028 [oz_av] [facility] BP Diastolic 2024-04-12 00:00:00 74 mm[Hg] [facility] BMI (Body Mass Index) 2024-04-12 00:00:00 70.9 kg/m2 [facility] BP Systolic 2024-04-12 00:00:00 114 mm[Hg] [facility] Height 2024-04-04 00:00:00 66 [in_i] [facility] BP Diastolic 2024-03-29 00:00:00 69 mm[Hg] [facility] Height 2024-03-29 00:00:00 66 [in_i] [facility] BMI (Body Mass Index) 2024-03-29 00:00:00 68.3 kg/m2 [facility] BP Systolic 2024-03-29 00:00:00 112 mm[Hg] [facility] Body Weight 2024-03-29 00:00:00 6768 [oz_av] [facility] Height 2024-03-20 00:00:00 66 [in_i] [facility] [...] [facility] BP Diastolic 2024-02-29 00:00:00 56 mm[Hg] [facility] BMI (Body Mass Index) 2024-02-29 [...] KG Body Temperature 2020-02-27 12:35:00 98 [degF] [facility] (LUF/[place]/SA) Pulse Rate 2020-02-27 12:35:00 94 /min [facility] Respiratory Rate 2020-02-27 12:35:00 18 /min [facility] (LUF/[place]/SA) O2% BldC Oximetry 2020-02-27 12:35:00 97 % [facility] (LUF/[place]/SA) BP Systolic 2020-02-27 12:35:00 124 mm[Hg] [facility] (LUF/[place]/SA) BP Diastolic 2020-02-27 12:35:00 80 mm[Hg] [facility] (LUF/[place]/SA) Height 2020-02-27 12:35:00 66 [in_i] [facility] (LUF/[place]/SA) Weight 2020-02-27 12:35:00 594 [lb_av] [facility] (LUF/[place]ON/SA) BMI (Body Mass Index) 2020-02-27 12:35:00 96.6 kg/m2 [facility] (LUF/[place]NSON/SA) Pulse Rate 2020-01-31 15:21:00 91 /min [facility] (LUF/[place]/SA) Respiratory Rate 2020-01-31 15:21:00 17 /min [facility] (LUF/[place]/SA) O2% BldC Oximetry 2020-01-31 15:21:00 93 % [facility] (LUF/[place]/SA) BP Systolic 2020-01-31 12:34:00 126 mm[Hg] [facility] (LUF/[place]/SA) BP Diastolic 2020-01-31 12:34:00 72 mm[Hg] [facility] (LUF/[place]/SA) Body Temperature 2020-01-31 12:30:00 96.2 [degF] [facility] (LUF/[place]/SA) Weight 2020-01-31 05:13:00 241 kg [facility] (LUF/[place]/SA) Height 2020-01-26 04:45:00 69 [in_i] [facility] (LUF/[place]/SA) Body Temperature 2020-01-04 18:00:00 98 [degF] [facility] (LUF/[place]/SA) Pulse Rate 2020-01-04 18:00:00 70 /min [facility] (LUF/[place]/SA) Respiratory Rate 2020-01-04 18:00:00 17 /min [facility] (LUF/[place]/SA) O2% BldC Oximetry 2020-01-04 18:00:00 98 % [facility] (LUF/[place]/SA) BP Systolic 2020-01-04 18:00:00 93 mm[Hg] [facility] (LUF/[place]ON/SA) BP Diastolic 2020-01-04 18:00:00 53 mm[Hg] [facility] (LUF/[place]ON/SA) Height 2020-01-04 13:35:00 69 [in_i] [facility] (LUF/[place]/SA) Weight 2020-01-04 13:35:00 500 [lb_av] [facility] (LUF/[place]/SA) BMI (Body Mass Index) 2020-01-04 13:35:00 74 kg/m2 [facility] (LUF/[place]/SA) Pulse Rate 2019-11-26 16:18:00 79 /min [facility] S [facility]ilynn [facility] (LUF/[place]/SA) Respiratory Rate 2019-11-26 16:18:00 19 /min [facility] (LUF/[place]ON/SA) O2% BldC Oximetry 2019-11-26 16:18:00 97 % [facility] (LUF/[place]NSON/SA) BP Systolic 2019-11-26 16:18:00 104 mm[Hg] [facility] (LUF/[place]ON/SA) BP Diastolic 2019-11-26 16:18:00 69 mm[Hg] [facility] (LUF/[place]ON/SA) Body Temperature 2019-11-26 14:09:00 98.9 [degF] [facility] (LUF/[place]ON/SA) Height 2019-11-26 14:09:00 69 [in_i] [facility] (LUF/[place]/SA) Weight 2019-11-26 14:09:00 227 kg [facility] (LUF/[place]/SA) BMI (Body Mass Index) 2019-11-26 14:09:00 74.1 kg/m2 [facility] (LUF/J[place]NSON/SA) Respiratory Rate 2017-09-15 17:59:00 19 /min [facility] (LUF/[place]ON/SA) BP Systolic 2017-09-15 17:59:00 139 mm[Hg] [facility] (LUF/[place]ON/SA) BP Diastolic 2017-09-15 17:59:00 85 mm[Hg] [facility] (LUF/[place]NSON/SA) Body Temperature 2017-09-15 16:28:00 98.6 F [facility] (LUF/J[place]NSON/SA) O2% BldC Oximetry 2017-09-15 16:28:00 95 % [facility] (LUF/J[place]NSON/SA) Height 2017-09-15 16:28:00 69 in [facility] (F/[place]NSON/SA) Weight Measured 2017-09-15 16:28:00 405 lbs [facility] (LUF/[place]NSON/SA) BMI (Body Mass Index) 2017-09-15 16:28:00 59.9 [facility] (F/JOHNSON/SA) Procedures Procedure Date / Time Performed Performing Clinician Source Urine Microalbumin/creatinine Ratio Measurement 2024-03-28 00:00:00 [facility] Microalbuminuria Measurement 2024-03-28 00:00:00 [facility] Estimated Creatinine Clearance 2024-03-28 00:00:00 [facility] Microalbumin Measurement, Urine, Quantitative 2024-03-28 00:00:00 [facility] Creatinine Measurement, Urine 2024-03-28 00:00:00 [facility] W/RESP VENT 24-96 CON HR CPAP 2020-01-26 00:00:00 [facility] (F/JOHNSON/SA) Tubal Ligation [facility] Cholecyst[facility] Encounters Start Date/Time End Date/Time Encounter Type Admission Type Attending Clinicians Care Facility Care Department Encounter ID Source 2024-10-07 00:00:00 2024-10-07 00:00:00 Jojo Villalpando PA: [address] [place] [id number] , Ph. [facility] [id number] [facility] 2024-08-22 00:00:00 2024-08-22 00:00:00 Dennis Talley MD: [address] [place] [phone] , Ph. [facility] [id number] [facility] 2024-08-19 00:00:00 2024-08-19 00:00:00 RUPINDER Watts: [address] [place] [phone] , Ph. [facility] - GC_BAHC_Lak [facility] [id number] [facility] 2024-07-19 00:00:00 2024-07-19 00:00:00 RUPINDER Watts: [address] [place] [id number] , Ph. [facility] GC_BAHC_Lak [facility] [id number] [facility] 2024-06-28 00:00:00 2024-06-28 00:00:00 RUPINDER Watts: [address] [place] [phone] , Ph. [facility] GC_BAHC_Lak [facility] [id number] [facility] 2024-06-20 00:00:00 2024-06-20 00:00:00 Dennis Talley MD: [address] [place] [phone] , Ph. [facility] GC_BAHC_Lak [facility] [id number] [facility] 2024-06-03 00:00:00 2024-06-03 00:00:00 RUPINDER Watts: [address] [place] [phone] , Ph. [facility] - GC_BAHC_Lak [facility] [id number] [facility] 2024-04-29 00:00:00 2024-04-29 00:00:00 RUPINDER Watts: [address] [place] [id number] , Ph. [facility] - GC_BAHC_Lak [facility] [id number] [facility] 2024-04-25 00:00:00 2024-04-25 00:00:00 Dennis Talley MD: [address] [place] [phone] , Ph. [facility] GC_BAHC_Lak [facility] [id number] [facility] 2024-04-15 00:00:00 2024-04-15 00:00:00 Jojo Villalpando PA: [address] [place] [phone] , Ph. [facility] GC_[facility] [id number] [facility] 2024-04-12 00:00:00 2024-04-12 00:00:00 Jojo Villalpando PA: [address] [place] [phone] , Ph. [facility] [id number] [facility] 2024-04-05 00:00:00 2024-04-05 00:00:00 Jojo Villalpando PA: [address] [place] [phone] , Ph. [facility] [id number] [facility] 2024-04-04 00:00:00 2024-04-04 00:00:00 Jojo Villalpando PA: [address] [place] [phone] , Ph. [phone] [place] [address] [facility] [id number] [facility] 2024-03-29 00:00:00 2024-03-29 00:00:00 Jojo Villalpando PA: [address] [place] [phone] , Ph. [facility] - [facility] [id number] [facility] 2024-03-20 00:00:00 2024-03-20 00:00:00 RUPINDER Watts: [address] [place] [phone] , Ph. [facility] [id number] [facility] 2024-03-13 00:00:00 2024-03-13 00:00:00 RUPINDER Watts: [address] [place] [phone] , Ph. [facility] [id number] [facility] 2024-03-06 00:00:00 2024-03-06 00:00:00 RUPINDER Watts: [address] [place] [phone] , Ph. [facility] [id number] [facility] 2024-02-29 00:00:00 2024-02-29 00:00:00 Dennis Talley MD: [address] [place] [phone] , Ph. [facility] GC_BAHC_[facility] [id number] [facility] 2024-02-26 00:00:00 2024-02-26 00:00:00 RUPINDER Watts: [address] [place] [phone] , Ph. [facility] [id number] [facility] 2024-02-23 00:00:00 2024-02-23 00:00:00 RUPINDER Watts: [address] [place] [phone] , Ph. [facility] GC_[facility]HC_[facility] [id number] [facility] 2024-01-23 00:00:00 2024-01-23 00:00:00 Outpatient GC_BAHC_Tod d_J [facility] [id number] [facility] 2023-12-29 00:00:00 2023-12-29 00:00:00 RUPINDER Watts: [address] [place] [phone] , Ph. [facility] [id number] [facility] 2023-12-29 00:00:00 2023-12-29 00:00:00 Jojo Villalpando PA: [address] [place] [phone] , Ph. [facility] [id number] [facility] 2023-12-28 00:00:00 2023-12-28 00:00:00 Dennis Talley MD: [address] [place] [phone] , Ph. [facility] [id number] [facility] 2023-12-28 00:00:00 2023-12-28 00:00:00 Dennis Talley MD: [address] [place] [phone] , Ph. [facility] [id number] [facility] 2023-12-21 00:00:00 2023-12-21 00:00:00 Outpatient GC_BAHC_Tod d_J [facility] [id number] [facility] 2023-12-14 00:00:00 2023-12-14 00:00:00 Outpatient GC_BAHC_Tod d_J [facility] [id number] [facility] 2023-12-12 00:00:00 2023-12-12 00:00:00 RUPINDER Watts: [address] [place] [phone] , Ph. [facility] [id number] [facility] 2023-12-12 00:00:00 2023-12-12 00:00:00 Jojo Villalpando PA: [address] [place] [phone] , Ph. [facility] [id number] [facility] 2023-12-08 00:00:00 2023-12-08 00:00:00 Jojo Villalpando PA: [address] [place] [phone] , Ph. [facility] [id number] [facility] 2023-12-08 00:00:00 2023-12-08 00:00:00 RUPINDER Watts: [address] [place] [phone] , Ph. [facility] [id number] [facility] 2023-11-25 00:00:00 2023-11-25 00:00:00 Outpatient GC_BAHC_Tod d_J PRIV PRIV [id number] [facility] 2023-11-24 00:00:00 2023-11-24 00:00:00 RUPINDER Watts: [address] [place] [phone] , Ph. [facility] [id number] [facility] 2023-11-22 00:00:00 2023-11-22 00:00:00 Outpatient GC_BAHC_Tod d_J PRIV PRIV [id number] [facility] 2023-11-18 00:00:00 2023-11-18 00:00:00 Outpatient GC_BAHC_Tod d_J PRIV PRIV [id number] [facility] 2023-11-10 00:00:00 2023-11-10 00:00:00 Outpatient GC_BAHC_Tod d_J PRIV PRIV [id number] [facility] 2023-10-31 00:00:00 2023-10-31 00:00:00 Outpatient GC_BAHC_Tod d_J PRIV PRIV [id number] [facility] 2023-10-31 00:00:00 2023-10-31 00:00:00 RUPINDER Watts: [address] [place] [phone] , Ph. [facility] [id number] [facility] 2023-10-26 00:00:00 2023-10-26 00:00:00 Dennis Talley MD: [address] [place] [phone] , Ph. [facility] [id number] [facility] 2023-10-25 00:00:00 2023-10-25 00:00:00 Outpatient GC_BAHC_Tod d_J PRIV PRIV [id number] [facility] 2023-10-13 00:00:00 2023-10-13 00:00:00 Outpatient GC_BAHC_Tod d_J PRIV PRIV [id number] [facility] 2023-10-10 00:00:00 2023-10-10 00:00:00 Outpatient GC_BAHC_Tod d_J PRIV PRIV [id number] [facility] 2023-10-07 00:00:00 2023-10-07 00:00:00 Outpatient GC_BAHC_Tod d_J PRIV PRIV [id number] [facility] 2023-10-05 00:00:00 2023-10-05 00:00:00 Outpatient GC_BAHC_Tod d_J PRIV PRIV [id number] [facility] 2023-09-29 00:00:00 2023-09-29 00:00:00 Outpatient GC_BAHC_Tod d_J PRIV PRIV [id number] [facility] 2023-09-25 00:00:00 2023-09-25 00:00:00 Outpatient GC_BAHC_Tod d_J PRIV PRIV [id number] [facility] 2023-09-22 00:00:00 2023-09-22 00:00:00 Outpatient GC_BAHC_Tod d_J PRIV PRIV [id number] [facility] 2023-09-13 00:00:00 2023-09-13 00:00:00 Outpatient GC_BAHC_Tod d_J PRIV PRIV [id number] [facility] 2023-09-11 00:00:00 2023-09-11 00:00:00 Outpatient GC_BAHC_Tod d_J PRIV PRIV [id number] [facility] 2023-09-01 00:00:00 2023-09-01 00:00:00 Outpatient GC_BAHC_Tod d_J PRIV PRIV [id number] [facility] 2023-09-01 00:00:00 2023-09-01 00:00:00 Outpatient GC_BAHC_Tod d_J PRIV PRIV [id number] [facility] 2023-08-23 00:00:00 2023-08-23 00:00:00 Outpatient GC_BAHC_Tod d_J PRIV PRIV [id number] [facility] 2023-08-23 00:00:00 2023-08-23 00:00:00 Outpatient GC_BAHC_Tod d_J PRIV PRIV [id number] [facility] 2023-08-18 00:00:00 2023-08-18 00:00:00 Outpatient GC_BAHC_Tod d_J PRIV PRIV [id number] [facility] 2023-08-05 00:00:00 2023-08-05 00:00:00 Outpatient GC_BAHC_Tod d_J PRIV PRIV [id number] [facility] 2023-08-04 00:00:00 2023-08-04 00:00:00 Outpatient GC_BAHC_Tod d_J PRIV PRIV [id number] [facility] 2023-08-03 00:00:00 2023-08-03 00:00:00 Outpatient GC_BAHC_Tod d_J PRIV PRIV [id number] [facility] 2023-07-31 00:00:00 2023-07-31 00:00:00 Outpatient GC_BAHC_Tod d_J PRIV PRIV [id number] [facility] 2023-07-27 00:00:00 2023-07-27 00:00:00 Outpatient GC_BAHC_Tod d_J PRIV PRIV [id number] [facility] 2023-07-25 00:00:00 2023-07-25 00:00:00 Outpatient GC_BAHC_Tod d_J PRIV PRIV [id number] [facility] 2023-07-19 00:00:00 2023-07-19 00:00:00 Outpatient GC_BAHC_Tod d_J PRIV PRIV [id number] [facility] 2023-07-08 00:00:00 2023-07-08 00:00:00 Outpatient GC_BAHC_Tod d_J PRIV PRIV [id number] [facility] 2023-07-05 00:00:00 2023-07-05 00:00:00 Outpatient GC_BAHC_Tod d_J PRIV PRIV [id number] [facility] 2023-06-30 00:00:00 2023-06-30 00:00:00 Outpatient GC_BAHC_Tod d_J PRIV PRIV [id number] [facility] 2023-06-26 00:00:00 2023-06-26 00:00:00 Outpatient GC_BAHC_Tod d_J PRIV PRIV [id number] [facility] 2023-06-26 00:00:00 2023-06-26 00:00:00 Outpatient GC_BAHC_Tod d_J PRIV PRIV [id number] [facility] 2023-06-24 00:00:00 2023-06-24 00:00:00 Outpatient GC_BAHC_Tod d_J PRIV PRIV [id number] [facility] 2023-06-16 00:00:00 2023-06-16 00:00:00 Outpatient GC_BAHC_Tod d_J PRIV PRIV [id number] [facility] 2023-06-12 00:00:00 2023-06-12 00:00:00 Outpatient GC_BAHC_Tod d_J PRIV PRIV [id number] [facility] 2023-06-10 00:00:00 2023-06-10 00:00:00 Outpatient GC_BAHC_Tod d_J PRIV PRIV [id number] [facility] 2023-06-05 00:00:00 2023-06-05 00:00:00 Outpatient GC_BAHC_Tod d_J PRIV PRIV [id number] [facility] 2023-05-24 00:00:00 2023-05-24 00:00:00 Outpatient GC_BAHC_Tod d_J PRIV PRIV [id number] [facility] 2023-05-18 00:00:00 2023-05-18 00:00:00 Outpatient GC_BAHC_Tod d_J PRIV PRIV [id number] [facility] 2023-05-17 00:00:00 2023-05-17 00:00:00 Outpatient GC_BAHC_Tod d_J PRIV PRIV [id number] [facility] 2023-05-11 00:00:00 2023-05-11 00:00:00 Outpatient GC_BAHC_Tod d_J PRIV PRIV [id number] [facility] 2023-05-09 00:00:00 2023-05-09 00:00:00 Outpatient GC_BAHC_Tod d_J PRIV PRIV [id number] [facility] 2023-05-05 00:00:00 2023-05-05 00:00:00 Outpatient GC_BAHC_Tod d_J PRIV PRIV [id number] [facility] 2023-05-03 00:00:00 2023-05-03 00:00:00 Outpatient GC_BAHC_Tod d_J PRIV PRIV [id number] [facility] 2023-04-25 00:00:00 2023-04-25 00:00:00 Outpatient GC_BAHC_Tod d_J PRIV PRIV [id number] [facility] 2023-04-25 00:00:00 2023-04-25 00:00:00 Outpatient GC_BAHC_Tod d_J PRIV PRIV [id number] [facility] 2023-04-25 00:00:00 2023-04-25 00:00:00 Outpatient GC_BAHC_Tod d_J PRIV PRIV [id number] [facility] 2023-04-25 00:00:00 2023-04-25 00:00:00 Outpatient GC_BAHC_Tod d_J PRIV PRIV [id number] [facility] 2023-04-20 00:00:00 2023-04-20 00:00:00 Outpatient GC_BAHC_Tod d_J PRIV PRIV [id number] [facility] 2023-04-17 00:00:00 2023-04-17 00:00:00 Outpatient GC_BAHC_Tod d_J PRIV PRIV [id number] [facility] 2023-04-10 00:00:00 2023-04-10 00:00:00 Outpatient GC_BAHC_Tod d_J PRIV PRIV [id number] [facility] 2023-04-07 00:00:00 2023-04-07 00:00:00 Outpatient GC_BAHC_Tod d_J PRIV PRIV [id number] [facility] 2023-03-29 00:00:00 2023-03-29 00:00:00 Outpatient GC_BAHC_Tod d_J PRIV PRIV [id number] [facility] 2023-03-29 00:00:00 2023-03-29 00:00:00 Outpatient GC_BAHC_Tod d_J PRIV PRIV [id number] [facility] 2023-03-29 00:00:00 2023-03-29 00:00:00 Outpatient GC_BAHC_Tod d_J PRIV PRIV [id number] [facility] 2023-03-28 00:00:00 2023-03-28 00:00:00 Outpatient GC_BAHC_Tod d_J PRIV PRIV [id number] [facility] 2023-03-28 00:00:00 2023-03-28 00:00:00 Outpatient GC_BAHC_Tod d_J PRIV PRIV [id number] [facility] 2023-03-22 00:00:00 2023-03-22 00:00:00 Outpatient GC_BAHC_Tod d_J PRIV PRIV [id number] [facility] 2023-03-22 00:00:00 2023-03-22 00:00:00 Outpatient GC_BAHC_Tod d_J PRIV PRIV [id number] [facility] 2023-03-21 00:00:00 2023-03-21 00:00:00 Outpatient GC_BAHC_Tod d_J PRIV PRIV [id number] [facility] 2023-03-02 00:00:00 2023-03-02 00:00:00 Outpatient GC_BAHC_Tod d_J PRIV PRIV [id number] [facility] 2023-02-21 00:00:00 2023-02-21 00:00:00 Dennis Talley MD: [address] [place] [phone] , Ph. [facility] [id number] [facility] 2023-02-20 00:00:00 2023-02-20 00:00:00 Outpatient GC_BAHC_Tod d_J PRIV PRIV [id number] [facility] 2023-02-20 00:00:00 2023-02-20 00:00:00 Outpatient GC_BAHC_Tod d_J PRIV PRIV [id number] [facility] 2023-02-20 00:00:00 2023-02-20 00:00:00 Outpatient GC_BAHC_Tod d_J PRIV PRIV [id number] [facility] 2023-02-07 00:00:00 2023-02-07 00:00:00 RUPINDER Watts: [address] [place] [phone] , Ph. [facility] GC[facility] [id number] [facility] 2023-02-02 00:00:00 2023-02-02 00:00:00 Outpatient GC_BAHC_Tod d_J [facility] PRIV [id number] [facility] 2023-01-31 00:00:00 2023-01-31 00:00:00 RUPINDER Watts: [address] [place] [phone] , Ph. [facility] GC[facility]HC[facility] [id number] [facility] 2023-01-18 00:00:00 2023-01-18 00:00:00 RUPINDER Watts: [address] [place] [phone] , Ph. [facility] GC[facility] [id number] [facility] 2023-01-17 00:00:00 2023-01-17 00:00:00 Outpatient GC_BAHC_Tod d_J PRIV PRIV [id number] [facility] 2023-01-17 00:00:00 2023-01-17 00:00:00 Outpatient GC_BAHC_Tod d_J PRIV PRIV [id number] [facility] 2023-01-17 00:00:00 2023-01-17 00:00:00 Outpatient GC_BAHC_Tod d_J PRIV PRIV [id number] [facility] 2022-12-31 00:00:00 2022-12-31 00:00:00 Outpatient GC_BAHC_Tod d_J PRIV PRIV [id number] [facility] 2022-12-16 00:00:00 2022-12-16 00:00:00 Outpatient GC_BAHC_Tod d_J PRIV PRIV [id number] [facility] 2022-12-14 00:00:00 2022-12-14 00:00:00 RUPINDER Watts: [address] [place] [phone] , Ph. [facility] [id number] [facility] 2022-12-09 00:00:00 2022-12-09 00:00:00 Outpatient GC_BAHC_Tod d_J PRIV PRIV [id number] [facility] 2022-12-09 00:00:00 2022-12-09 00:00:00 Outpatient GC_BAHC_Tod d_J PRIV PRIV [id number] [facility] 2022-12-09 00:00:00 2022-12-09 00:00:00 RUPINDER Watts: [address] [place] [phone] , Ph. [facility] [id number] [facility] 2022-11-15 00:00:00 2022-11-15 00:00:00 Outpatient GC_BAHC_Tod d_J PRIV PRIV [id number] [facility] 2022-11-08 00:00:00 2022-11-08 00:00:00 Outpatient GC_BAHC_Tod d_J PRIV PRIV [id number] [facility] 2022-11-07 00:00:00 2022-11-07 00:00:00 Outpatient GC_BAHC_Tod d_J PRIV PRIV [id number] [facility] 2022-11-04 00:00:00 2022-11-04 00:00:00 Outpatient GC_BAHC_Tod d_J PRIV PRIV [id number] [facility] 2022-10-26 00:00:00 2022-10-26 00:00:00 Outpatient GC_BAHC_Tod d_J PRIV PRIV [id number] [facility] 2022-10-26 00:00:00 2022-10-26 00:00:00 RUPINDER Watts: [facility] [place] [address] , Ph. [facility] [id number] [facility] 2022-10-25 00:00:00 2022-10-25 00:00:00 Outpatient GC_BAHC_Tod d_J PRIV PRIV [id number] [facility] 2022-10-25 00:00:00 2022-10-25 00:00:00 Outpatient GC_BAHC_Tod d_J PRIV PRIV [id number] [facility] 2022-10-25 00:00:00 2022-10-25 00:00:00 Dennis Talley MD: [address] [place] [phone] , Ph. [facility] [id number] [facility] 2022-10-18 00:00:00 2022-10-18 00:00:00 Outpatient GC_BAHC_Tod d_J PRIV PRIV [id number] [facility] 2022-09-02 00:00:00 2022-09-02 00:00:00 Outpatient GC_BAHC_Tod d_J PRIV PRIV [id number] [facility] 2022-09-01 00:00:00 2022-09-01 00:00:00 Outpatient GC_BAHC_Tod d_J PRIV PRIV [id number] [facility] 2022-08-23 00:00:00 2022-08-23 00:00:00 RUPINDER Watts: [facility] [place] [address] , Ph. [facility] [id number] [facility] 2022-08-21 00:00:00 2022-08-21 00:00:00 Outpatient GC_BAHC_Tod d_J PRIV PRIV [id number] [facility] 2022-08-19 00:00:00 2022-08-19 00:00:00 Outpatient GC_BAHC_Tod d_J PRIV PRIV [id number] [facility] 2022-08-18 00:00:00 2022-08-18 00:00:00 Outpatient GC_BAHC_Tod d_J PRIV PRIV [id number] [facility] 2022-08-16 00:00:00 2022-08-16 00:00:00 Outpatient GC_BAHC_Tod d_J PRIV PRIV [id number] [facility] 2022-08-05 00:00:00 2022-08-05 00:00:00 Outpatient GC_BAHC_Tod d_J PRIV PRIV [id number] [facility] 2022-08-05 00:00:00 2022-08-05 00:00:00 RUPINDER Watts: [address] [place] [phone] , Ph. [facility] [id number] [facility] 2022-08-02 00:00:00 2022-08-02 00:00:00 Outpatient GC_BAHC_Tod d_J PRIV PRIV [id number] [facility] 2022-07-29 00:00:00 2022-07-29 00:00:00 Outpatient GC_BAHC_Tod d_J PRIV PRIV [id number] [facility] 2022-07-05 00:00:00 2022-07-05 00:00:00 Outpatient GC_BAHC_Tod d_J PRIV PRIV [id number] [facility] 2022-07-05 00:00:00 2022-07-05 00:00:00 RUPINDER Watts: [address] [place] [phone] , Ph. [facility] GC_[facility]HC_[facility] [id number] [facility] 2022-07-04 00:00:00 2022-07-04 00:00:00 Dennis Talley MD: [address] [place] [phone] , Ph. [facility] GC_[facility]HC_[facility] [id number] [facility] 2022-06-22 00:00:00 2022-06-22 00:00:00 Outpatient GC_BAHC_Tod d_J PRIV PRIV [id number] [facility] 2022-06-02 00:00:00 2022-06-02 00:00:00 Outpatient GC_BAHC_Tod d_J PRIV PRIV [id number] [facility] 2022-05-24 00:00:00 2022-05-24 00:00:00 Outpatient GC_BAHC_Tod d_J PRIV PRIV [id number] [facility] 2022-05-24 00:00:00 2022-05-24 00:00:00 RUPINDER Watts: [address] [place] [phone] , Ph. [facility] GC_[facility]HC_[facility] [id number] [facility] 2022-05-24 00:00:00 2022-05-24 00:00:00 Outpatient Jojo Villalpando [facility] [id number] 2022-05-16 00:00:00 2022-05-16 00:00:00 Outpatient GC_BAHC_Tod d_J PRIV PRIV [id number] [facility] 2022-05-12 00:00:00 2022-05-12 00:00:00 Outpatient GC_BAHC_Tod d_J PRIV PRIV [id number] [facility] 2022-05-12 00:00:00 2022-05-12 00:00:00 Outpatient Dennis Talley [facility] [id number] 2022-05-12 00:00:00 2022-05-12 00:00:00 Dennis Talley MD: [address] [place] [phone] , Ph. [facility] [id number] [facility] 2022-05-03 11:55:00 2022-05-03 11:55:00 Outpatient GC_BAHC_Tod d_J PRIV PRIV [id number] [facility] 2022-04-26 01:36:00 2022-04-26 01:36:00 Outpatient GC_BAHC_Tod d_J [facility] PRIV [id number] [facility] 2022-04-26 00:00:00 2022-04-26 00:00:00 Outpatient Jojo Villalpando [facility] [id number] 2022-04-26 00:00:00 2022-04-26 00:00:00 RUPINDER Watts: [address] [place] [phone] , Ph. [facility]_Lak [facility] [id number] [facility] 2022-04-24 11:00:00 2022-04-24 11:00:00 Outpatient GC_BAHC_Tod d_J PRIV PRIV [id number] [facility] 2022-04-22 10:51:00 2022-04-22 10:51:00 Outpatient GC_BAHC_Tod d_J PRIV PRIV [id number] [facility] 2022-04-21 11:47:00 2022-04-21 11:47:00 Outpatient GC_BAHC_Tod d_J PRIV PRIV [id number] [facility] 2022-04-15 04:12:00 2022-04-15 04:12:00 Outpatient GC_BAHC_Tod d_J [facility] [id number] [facility] 2022-04-15 00:00:00 2022-04-15 00:00:00 Jojo Villalpando PA: [address] [place] [phone] , Ph. [facility] - GC_BAHC_Lak [facility] [id number] [facility] 2022-04-15 00:00:00 2022-04-15 00:00:00 Outpatient Jojo Villalpando [facility] [id number] 2022-04-13 09:13:00 2022-04-13 09:13:00 Outpatient GC_BAHC_Tod d_J [facility] [id number] [facility] 2022-04-13 00:00:00 2022-04-13 00:00:00 Outpatient Jojo Villalpando [facility] [id number] 2022-04-13 00:00:00 2022-04-13 00:00:00 RUPINDER Watts: [address] [place] [phone] , Ph. [facility] GC_BAHC_[facility] [id number] [facility] 2022-04-10 10:44:00 2022-04-10 10:44:00 Outpatient GC_BAHC_Tod d_J [facility] [id number] [facility] 2022-04-05 04:56:00 2022-04-05 04:56:00 Outpatient GC_BAHC_Tod d_J [facility] PRIV [id number] [facility] 2022-04-05 00:00:00 2022-04-05 00:00:00 Jojo Villalpando PA: [address] [place] [phone] , Ph. [facility] - GC_BAHC_Lak [facility] [id number] [facility] 2022-04-05 00:00:00 2022-04-05 00:00:00 Outpatient Jojo Villalpando [facility] [id number] 2022-04-01 06:30:00 2022-04-01 06:30:00 Outpatient GC_BAHC_Tod d_J [facility] [id number] [facility] 2022-04-01 00:00:00 2022-04-01 00:00:00 Outpatient Jojo Villalpando [facility] [id number] 2022-04-01 00:00:00 2022-04-01 00:00:00 Jojo Villalpando PA: [address] [place] [phone] , Ph. [facility] - GC_BAHC_Lak [facility] [id number] [facility] 2022-03-20 10:40:00 2022-03-20 10:40:00 Outpatient GC_BAHC_Tod d_J [facility] [id number] [facility] 2022-03-19 10:41:00 2022-03-19 10:41:00 Outpatient GC_BAHC_Tod d_J [facility] [id number] [facility] [facility]17 02:04:00 2022-03-17 02:04:00 Outpatient GC_BAHC_Tod d_J [facility] [id number] [facility] 2022-03-17 00:00:00 2022-03-17 00:00:00 Outpatient Dennis Talley [facility] [id number] 00:00:00 2022-03-17 00:00:00 Dennis Talley MD: [address] [place] [phone] , Ph. Formerly [facility] - GC_BAHC_Lak [facility] [id number] [facility] 2022-03-11 12:36:00 2022-03-11 12:36:00 Outpatient GC_BAHC_Tod d_J PRIV PRIV [id number] [facility] 2022-03-11 00:00:00 2022-03-11 00:00:00 Outpatient Kwasi Jojo [facility] [id number] 2022-03-11 00:00:00 2022-03-11 00:00:00 RUPINDER Watts: [address] [place] [phone] , Ph. [facility]ly [facility] - GC_BAHC_Lak [facility] [id number] [facility] 2022-02-23 10:53:00 2022-02-23 10:53:00 Outpatient GC_BAHC_Tod d_J PRIV PRIV [id number] [facility] 2022-02-15 07:51:00 2022-02-15 07:51:00 Outpatient GC_BAHC_Tod d_J PRIV PRIV [id number] [facility] 2022-02-15 00:00:00 2022-02-15 00:00:00 Outpatient Jojo Villalpando [facility] [id number] 2022-02-15 00:00:00 2022-02-15 00:00:00 RUPINDER Watts: [address] [place] [phone] , Ph. [facility] - GC_BAHC_Lak [facility] [id number] [facility] 2022-02-11 08:21:00 2022-02-11 08:21:00 Outpatient GC_BAHC_Tod d_J PRIV PRIV [id number] [facility] 2022-02-08 08:40:00 2022-02-08 08:40:00 Outpatient GC_BAHC_Tod d_J PRIV PRIV [id number] [facility] 2022-02-03 01:01:00 2022-02-03 01:01:00 Outpatient GC_BAHC_Tod d_J PRIV PRIV [id number] [facility] 2022-02-02 12:52:00 2022-02-02 12:52:00 Outpatient GC_BAHC_Tod d_J PRIV PRIV [id number] [facility] 2022-02-01 09:12:00 2022-02-01 09:12:00 Outpatient GC_BAHC_Tod d_J PRIV PRIV [id number] [facility] 2022-01-27 11:30:00 2022-01-27 11:30:00 Outpatient GC_BAHC_Tod d_J PRIV PRIV [id number] [facility] 2022-01-27 00:00:00 2022-01-27 00:00:00 Outpatient Dennis Talley [facility] PRIV [id number] 2022-01-27 00:00:00 2022-01-27 00:00:00 Dennis Talley MD: [address] [place] [phone] , Ph. [facility] - GC_BAHC_Mayank Cardozo [place] [id number] [facility] 2022-01-27 00:00:00 2022-01-27 00:00:00 Outpatient Dennis Talley [facility] PRIV [id number] 2022-01-25 02:06:00 2022-01-25 02:06:00 Outpatient GC_BAHC_Tod d_J PRIV PRIV [id number] [facility] 2022-01-25 00:00:00 2022-01-25 00:00:00 Outpatient Jojo Villalpando [facility] PRIV [id number] 2022-01-25 00:00:00 2022-01-25 00:00:00 RUPINDER Watts: [address] [place] [phone] , Ph. [facility] - GC_BAHC_[place] [id number] [facility] 2022-01-25 00:00:00 2022-01-25 00:00:00 Outpatient Jojo Villalpando [facility] [id number] 2022-01-24 03:10:00 2022-01-24 03:10:00 Outpatient GC_BAHC_Tod d_J [facility] [id number] [facility] 2022-01-21 05:16:00 2022-01-21 05:16:00 Outpatient GC_BAHC_Spa ngler_G [facility] [id number] [facility] 2020-02-27 12:33:00 2020-02-27 14:29:00 OTH SYMPTOMS SIGNS INVLV SYSTEM [facility], [address] [place], [place] [id number] [place] [id number] [facility] (LUF/LI V/SA) 2020-01-26 03:15:00 2020-01-31 15:55:00 HTN HEART DISEASE W/HEART FAIL E PILAR GOMEZ [facility], [address], [place] [address] [facility] [id number] [facility] (LUF/LI V/SA) 2020-01-04 22:01:00 2020-01-04 23:59:00 Inpatient [facility], [address] [place] [address] [facility] [id number] [facility] (LUF/LI V/SA) 2020-01-04 13:30:00 2020-01-04 18:53:00 CELLULITIS OF LEFT LOWER LIMB E ELENA DOUGLAS [facility], [address], [place] [address] [facility] [id number] [facility] (LUF/LI V/SA) 2019-11-26 14:08:00 2019-11-26 17:30:00 VENOUS INSUFF CHRONIC PERIPHERAL 1 VELMA COREY [facility] N, [address], [place] [address] [facility] [id number] [facility] (LUF/LI V/SA) 2018-11-15 14:59:00 2018-11-15 23:59:00 SHORTNESS OF BREATH 3 TIM GRESHAM [facility], [address] [place] [address] [facility] [id number] [facility] (LUF/LI V/SA) 2018-06-08 11:43:00 2018-06-08 23:59:00 COPD UNSPECIFIE D 3 JUSTO DICK [facility] N, [address], [place] [address] [facility] [id number] [facility] (LUF/LI V/SA) 2017-09-16 00:36:00 2017-09-16 23:59:00 Inpatient DE ANDAGANESH [facility], [address] [id number] [facility] (LUF/LI V/SA) 2017-09-15 16:11:00 2017-09-15 19:30:00 CELLULITIS OF RIGHT LOWER LIMB E LAUREN PRESTON [facility] N, [address], [place] [address] [facility] [id number] [facility] (LUF/LI V/SA) Results Test Description Test Time Test Comments Results Result Co mments Source [facility], [id number] 10:36:00Specimen: BloodCollected: 01/25/2020 23:40 Status: Final Last Updated: 01/31/2020 10:36 Culture Result (Final) (Final) [facility] [id number] 10:36:00Specimen: BloodCollected: 01/25/2020 23:40 Status: Final Last Updated: 01/31/2020 10:36 Culture Result (Final) (Final) [facility] 12:41:00* Test Item Value Reference Range Interpretation [...] assessment and management of chronic kidney failure. [facility] 10:36:00* Test Item Value Reference Range Interpretation [...] assessment and management of chronic kidney failure. [facility] WITH AUTO [id number] 09:59:00* Test Item Value Reference Range Interpretation [...] (test code = IG%) 0.4 % 0.0-0.4 [facility] WITH [id number] 06:21:00 * Test Item Value Reference Range Interpretation Comme nts Color (test code = UCOLR) Yellow Clarity (test code = UCLAR) Clear Glucose (test code = UGLUC) NEGATIVE NEGATIVE N Bilirubin (test code = UBILI) NEGATIVE NEGATIVE N Ketones (test code = UKET) TRACE NEGATIVE A Specific Hellier (test code = USPGR) 1.020 1.005-1.030 A [...] code = UBACT) Trace None Seen,Trace N [facility]icsBMP2020-04-14 05:47:00* Test Item Value Reference Range Interpretation [...] assessment and management of chronic kidney failure. [facility] WITH AUTO [id number] 05:46:00* Test Item Value Reference Range Interpretation [...] code = IG%) 0.7 % 0.0-0.4 H [facility]icsBMP2020-04-13 04:49:00* Test Item Value Reference Range Interpretation [...] assessment and management of chronic kidney failure. [facility] WITH AUTO [id number] 04:24:00* Test Item Value Reference Range Interpretation [...] code = IG%) 0.7 % 0.0-0.4 H [facility] [id number] 21:16:00* Test Item Value Reference Range Interpretation Comme nts Troponin-I (test code = TROP) <0.015 ng/ml 0.000-0.034 N The 99th Percent ile URL is 0.045 ng/mL for the Siemens Tyler Troponin I. The Joint Society of Cardiology/[employer] College [employer] Cardiology (ESC/ACC) and the National [...] first 24 hours after the clinical event. [facility] HospitalOPONIN-I [id number] 13:14:00* Test Item Value Reference Range Interpretation Comme nts Troponin-I (test code = TROP) <0.015 ng/ml 0.000-0.034 N The 99th Percent ile URL is 0.045 ng/mL for the Siemens Tyler Troponin I. The Joint Society of Cardiology/[place] College [employer] Cardiology (ESC/ACC) and the National [...] first 24 hours after the clinical event. [facility]icsLACTIC ACID [id number] 06:06:00* Test Item Value Reference Range Interpretation Comme nts LACTATE (test code = LAC) 2.8 mmol/l 0.7-2.0 HH repeat Critical values were called to Ramón Fatima RN by [id number] on 01/26/20 06:06 CDT. Results were read back by Ramón Fatima RN.[facility] ClinicsD-DIMER [id number] 06:02:00* Test Item Value Reference Range Interpretation Comme [facility] D DIMER (test code = D DIM) 0.98 mg/L FEU 0.19-0.50 H METHOD CHANGE: Due to the discontinued mehodology currently in use, a change in the testing method is necessary. The Reference Ranges will change dramatically, and results are obtained by the observance of clotting activation mesured on the Sysmex instruments. This same methodology is currently in [...] and a low probability of thromboembolic disease. [facility]icsBMP2020-04-12 05:31:00* Test Item Value Reference Range Interpretation Comme [facility] Glucose (test code = GLU) 212 [...] assessment and management of chronic kidney failure. [facility]OPON[facility]-I [id number] 05:31:00* Test Item Value Reference Range Interpretation Comme nts Troponin-I (test code = TROP) <0.015 ng/ml 0.000-0.034 N The 99th Percent ile URL is 0.045 ng/mL for the Siemens Tyler Troponin I. The Joint Society of Cardiology/[employer] College [employer]iology (ESC/ACC) and the National [...] first 24 hours after the clinical event. [facility] WITH AUTO [id number] 05:06:00* Test Item Value Reference Range Interpretation [...] code = IG%) 0.9 % 0.0-0.4 H [facility] ClinicsGLYCOSALATED [id number] 03:19:00* Test Item Value Reference Range Interpretation [...] FOR THE MEAN GLUCOSE IS NOT RELIABLE. [facility] (Ultra Sensitive)2020-01-26 02:57:00* Test Item Value Reference Range Interpretation Comme nts TSH (test code = TSH) 5.28 mIU/L 0.47-4.68 H [facility]icsXR CHEST AP/PA 1 [id number] 00:53:02 EXAMINATION: XR CHEST AP/PA 1 VIEWINDICATION: [id number]: DyspneaCOMPARISON: Chest x-ray dated November 26, 2019FINDINGS: [...] By: JAIR BRANCHDate: 01/26/2020 00:46[facility]CT[facility] ACID [id number] 00:25:00* Test Item Value Reference Range Interpretation Comme nts LACTATE (test code = LAC) 2.1 mmol/l 0.7-2.0 HH Critical values were called to Renetta Donato RN by [id number] on 01/26/20 00:25 CDT. Results were readback by Renetta Donato RN.[facility] ClinicsTROPONIN-I [id number] 00:25:00* Test Item Value Reference Range Interpretation Comme nts Troponin-I (test code = TROP) <0.015 ng/ml 0.000-0.034 N The 99th Percent ile URL is 0.045 ng/mL for the Siemens Tyler Troponin I. The Joint Society of Cardiology/[employer] College of Cardiology (ESC/ACC) and the National [...] first 24 hours after the clinical event. [facility] ClinicsPRO-BNP(B-Type Natriuretic Peptide)2020-01-26 00:25:00* Test Item Value Reference Range Interpretation Comme nts Pro-BNP(B-Peptide) (test code = PROBNP) 752 pg/ml 0-125 H Critical re sult called to Renetta Donato RN; result read back [facility] ClinicsCMP2020-04-12 00:23:00* Test Item Value Reference Range Interpretation [...] management of chronic kidney failure. [facility] ClaireAnywiv-[id number] 23:51:00* Test Item Value Reference Range Interpretation [...] BGHCT) 40.5 35.0-50.0 O2Hb (test code = VPXZ0VA) 92.6 % 95.0-99.0 L COHb (test code [...] BGTMNOTIFIED) 23:45 O2 Device (test code = [id number]) Nasal Cannula Instrument ID (test code = BGINSTRID) [id number] Reported By (test code = BGREPORTEDBY) LAUREN MINAYA [facility] WITH AUTO [id number] 23:49:00* Test Item Value Reference Range Interpretation [...] code = IG%) 0.7 % 0.0-0.4 H [facility], ANAEROBE [id number] 07:53:00 Specimen: BloodCollected: 01/04/2020 15:04 Status: Final Last Updated: 01/10/2020 07:52 Culture Result (Final) (Final) No [facility] [id number] 07:53:00Specimen: BloodCollected: 01/04/2020 15:04 Status: Final Last Updated: 01/10/2020 07:52 Culture Result (Final) (Final) No Growth [facility], [id number] 09:23:00MUST order Gram Stain separately WOUNDSSpecimen: WoundCollected: [...] <=0.25 S Tobramycin <=1 S Trimeth/Sulfa <=20 S [facility] ClinicsGRAM [id number] 07:22:00Must order gram stain separately with aerobic cultSpecimen: WoundCollected: 01/04/2020 14:25 Status: Final Last Updated: 01/06/2020 07:22 (1) Must order gram stain separately with aerobic cult Gram Stain (Final) (Final) Many RBC's Moderate Gram Negative BacilliAspirus Riverview Hospital And ClinicsXR LEG (TIB/FIB) 2 VIEWS 2020-01-04 15:32:55Right tibia/fibula radiographs-4 viewsHistory: Pain.Comparison: right ankle [...] 01/04/2020 3:26PMDictated By: YAMILET JOSÉRDate: 01/04/2020 15:26[facility] [place] 2020-01-04 15:30:00* Test Item Value Reference Range Interpretation [...] assessment and management of chronic kidney failure. [facility][Note 3]-[place]stonURINALYSIS WITH [id number] 15:28:00 * Test Item Value Reference Range Interpretation Comme nts Color (test code = UCOLR) Yellow Clarity (test code = UCLAR) Clear Glucose (test code = UGLUC) NEGATIVE NEGATIVE N Bilirubin (test code = UBILI) NEGATIVE NEGATIVE N Ketones (test code = UKET) NEGATIVE NEGATIVE N Specific Hellier (test code = USPGR) >=1.030 1.005-1.030 A [...] code = UBACT) Trace None Seen,Trace N [facility] WITH AUTO [id number] 15:07:00* Test Item Value Reference Range Interpretation [...] (test code = IG%) 0.4 % 0.0-0.4 [facility]icsXR ANKLE COMP MIN 3 [id number] 16:18:18 Evaluate for gasRight ankle 3 views:History: [...] electronically signed by Dr Akash Schreiber MD :11 PMDictated By: John SCHREIBERte: 11/26/2019 16:11[facility]LEXR CHEST AP/PA 1 [id number] 16:07:03Exam: AP portable chestDATE OF EXAM: 11/26/2019 [...] Dr Akash Schreiber MD 11/26/20194:00 PMDictated By: John SCHREIBERte:11/26/2019 16:00[facility] READYVILLETROPONIN-I Quantitative 2019-11-26 15:37:00* Test Item Value Reference Range Interpretation Comme nts Troponin-I (test code = TROP) <0.015 ng/ml 0.000-0.034 N The 99th Percent ile URL is 0.045 ng/mL for the Siemens Tyler Troponin I. The Joint Society of Cardiology/[place] College of Cardiology (ESC/ACC) and the National [...] first 24 hours after the clinical event. [facility]icsPRO-BNP(B-Type Natriuretic Peptide)2019-11-26 15:37:00* Test Item Value Reference Range Interpretation Comme nts Pro-BNP(B-Peptide) (test cod e = PROBNP) 20 pg/ml 0-125 [facility] ClinicsCMP2020-02-11 15:37:00* Test Item Value Reference Range Interpretation [...] assessment and management of chronic kidney failure. [facility]-REACTIVE [id number] 15:26:00* Test Item Value Reference Range Interpretation Comme nts C REACTIVE PROTEIN (test cod e = CRP) 27.00 mg/dl 0.00-3.00 H [facility] ClinicsPREGNANCY TEST, Serum [id number] 15:24:00* Test Item Value Reference Range Interpretation Comme nts (Serum) (test code = PREGS) Negative Negative N [facility] WITH AUTO [id number] 15:00:00* Test Item Value Reference Range Interpretation [...] (test code = IG%) 0.3 % 0.0-0.4 [facility]XR CHEST 2 PA [id number] 17:10:47 Procedure: XR CHEST 2 PA LATERALOrder Date: 11/15/2018 3:11 PMOrdering Provider: DR TIM Keenaninical Indication: [id number]: DyspneaComparison: 06/08/2018Findings:Cardiac size is normal.Pulmonary vasculature is normal.Mediastinal contour is normal.Aortic contour is normal.There is no consolidation or effusion.There is no mass or pneumothorax.There is no evidence of active tuberculosis.There is no skeletal abnormality.Impression: Negative PA and lateral views of the chest.This final report was electronically signed by Dr Bg Cardenas MD 11/15/20185:04 PMDictated By: BG CARDENAS.Date: 11/15/2018 17:04[facility] OF BETHELRIDGEXR CHEST 2 PA [id number] 13:35:48PA and lateral chest:Exam Date: 06/08/2018Clinical Indication: COPDThe lungs are clear. Cardiac sizeis at upper limits of normal. There is novascular congestion or pleural effusion. There are no significant bonyabnormalities.Impression: No acute cardiopulmonary abnormality.This final report was electronically signed by Dr Akash Schreiber MD 06/08/20181:29 PMDictated By: AKASH SCHREIBERDate: 06/08/2018 13:35[facility] READY[facility]ILLECULTURE, [id number] 10:29:00MUST order Gram Stain separately WOUNDSSpecimen: Leg RightCollected: 09/15/2017 17:54 Status: Final Last Updated: 09/18/2017 01:39 (1) MUST order Gram Stain separately WOUNDS Culture Result (Final) (Final) Many Gram Negative Bacilli Isolate (Final) (Final) Proteus mirabilis Amoxicillin/clavu <=2 S Ampicillin <=2 S Aztreonam <= 1 S Cefazolin <=4 S Cefepime <=1 S Ceftriaxone <=1 S Ciprofloxacin <=0.25 S Gentamicin <=1 S Levofloxacin <=0.12 S Meropenem <=0.25 S Tetracycline >=16 R Trimeth/Sulfa <=20SAspirus [facility] Hospital And ClinicsCULTURE, [id number] 07:23:00Specimen: Urine SpecimensCollected: 09/15/2017 17:55 Status: Final Last Updated: 09/18/2017 07:23 Culture Result (Final) (Final) No Growth After 48 HoursAsp[facility] Hospital And ClinicsGRAM [id number] 13:27:00Must order gram stain separately with aerobic cultSpecimen: Leg RightCollected: 09/15/2017 17:54 Status: Final Last Updated: 09/17/2017 13:27 (1) Must order gram stain separately with aerobic cult Gram Stain (Final) (Final) No Cells Seen Rare Gram Negative BacilliAspirus Riverview Hospital And ClinicsXR ANKLE [id number] 18:22:06EXAM: XR ANKLE 2VWS, RIGHTDATE: 09/15/2017 4:52 [...] by Dr Juan Mckinnon DO 09/15/2017 6:15PMDictated By:Hemant MCKINNON: 09/15/2017 18:22[facility] [id number] 18:11:00* Test Item Value Reference Range Interpretation [...] assessment and management of chronic kidney failure. [facility][Note 3]-LivingstonURINALYSIS WITH [id number] 18:06:00 * Test Item Value Reference Range Interpretation Comme nts Color (test code = UCOLR) Yellow Clarity (test code = UCLAR) CLEAR Glucose (test code = UGLUC) NEGATIVE NEGATIVE N Bilirubin (test code = UBILI) NEGATIVE NEGATIVE N Ketones (test code = UKET) NEGATIVE NEGATIVE N Specific Hellier (test code = USPGR) 1.025 1.005-1.030 A [...] code = UBACT) Trace None Seen,Trace N [facility] ClinicsPREGNANCY TEST, Urine [id number] 18:02:00* Test Item Value Reference Range Interpretation Comme nts (Urine) (test code = PREGU) Negative If a specimen is collected by a nurse, then you MUST fill out the Collected and Collected By rankin [facility] WITH AUTO [id number] 17:55:00* Test Item Value Reference Range Interpretation [...] code = IG%) 0.4 % 0.0-0.4 AUTO [facility]
[2024-10-08 14:53] LABS: SARS-CoV-2 Antigen CONTROL BLUE LINE VIS/BG OK; SARS-CoV-2 Antigen Rapid Res Negative (Negative)
[2024-10-08] MEDS ORDERED: IBUPROFEN 400 MG TAB ONE (14:55)
[2024-10-08] MEDS ORDERED: ACETAMINOPHEN 325 MG TABLET ONE (14:55)
[2024-10-08 15:00] LABS: Absolute Basophils 0.1 K/uL (0-0.5); Absolute Eosinophils 0.1 K/uL (0-0.5); Absolute Lymphocytes (CBC) 0.9 K/uL (0.7-4.9); Absolute Monocytes 0.7 K/uL (0.1-1.3); Absolute Neutrophil 13.4 K/uL (1.8-8.0); Basophils % 0.4 % (0-1.3); Eosinophils % 0.5 % (0-4.4); Hematocrit 36.8 % (36.0-45.0); Hemoglobin 11.7 g/dL (12.0-15.0); Lymphocytes % 5.8 % (15.3-44.8); MCH 28.1 pg (27.0-35.0); MCHC 31.9 g/dL (32.0-36.0); MCV 87.9 fL (80-100); MPV 8.1 fL (7.6-11.3); Monocytes % 4.4 % (3.3-12.3); Neutrophils % 88.9 % (41.7-73.7); Platelets 244 thou/uL (152-406); RBC Red Blood Cell Count 4.19 M/uL (3.86-4.86); Red Cell Distribution Width 15.6 % (12.1-15.2)
[2024-10-08 15:03] LABS: PT Prothrombin Time 14.9 SECONDS (9.4-12.5); PTT, Activated Partial Thromb 31.9 SECONDS (24.3-36.9); Protime INR 1.34
--- NOTE | 2024-10-08 15:08 | RAD REPORT ---
Procedure: Chest Single View HISTORY: Fever COMPARISON: March 2024 FINDINGS: Areas of subsegmental atelectasis right lung. Remainder of the lungs appear clear of acute infiltrate. Pulmonary vascular congestion present. No significant pleural effusion noted. The heart is moderately to markedly enlarged.
[2024-10-08 15:15] LABS: Albumin 2.5 g/dL (3.4-5.0); Albumin/Globulin Ratio 0.5 (1.1-1.8); Anion Gap 10.1 mEq/L (5.0-15.0); Bilirubin Total 0.6 mg/dL (0.2-1.0); Globulin 5.2 g/dL (2.3-3.5); Protein, Total 7.7 g/dL (6.4-8.2)
[2024-10-08 15:16] LABS: Potassium 4.1 mEq/L (3.5-5.1)
[2024-10-08] MEDS ORDERED: GABAPENTIN 300 MG CAP ONE (15:33)
[2024-10-08] MEDS ORDERED: ONDANSETRON 4 MG/2 ML VIAL ONE (15:49)
[2024-10-08 16:33] LABS: Platelet Estimate ADEQ; White Blood Cell Scan OK (OK)
[2024-10-08 16:33] LABS: Arterial Blood Carboxyhemoglob 1.1 % (0-1.5); Blood Gas Oxyhemoglobin 95.1 % (94-97); Blood Gas THB 13.1 g/dl (12-18); Blood O2 Saturation 97.9 % (92-98.5)
[2024-10-08 16:34] LABS: Blood Morphology Comment NOTED (NOT SEEN); Poikilocytosis 1+
[2024-10-08 18:44] LABS: Calcium Oxalate Crystals- Ur Few /HPF (None Seen); Specific Gravity > 1.030 (1.005-1.030); Sqamous Epithelial <5 /HPF (None Seen); Urine Bacteria None Seen /HPF (<20); Urine Bilirubin NEGATIVE (Negative); Urine Blood Negative (Negative); Urine Clarity Clear (Clear); Urine Color Yellow (Yellow); Urine Culture Reflex Order NOT NEEDED; Urine Glucose NEGATIVE (Negative); Urine Ketones NEGATIVE (Negative); Urine Microscopic Reflex YN ORDER UMIC; Urine Mucus Slight /HPF (None Seen); Urine Nitrite NEGATIVE (Negative); Urine Protein TRACE (Negative); Urine RBC <5 /HPF (None Seen); Urine Urobilinogen 2+ (Normal); Urine WBC <5 /HPF (<5); Urine WBC Clump Rare /HPF (None Seen); Urine Yeast (Budding) Trace /HPF (None Seen)
--- NOTE | 2024-10-08 19:00 | RAD REPORT ---
EXAM: Chest Abdomen Pelvis W Cont CLINICAL INDICATION: Chest and abdominal pain. Shortness of breath TECHNIQUE: CT chest, abdomen and pelvis was performed, with 100 cc Isovue-300 IV contrast, as per de partment protocol. Axial, sagittal and coronal reconstructions were obtained. One or more of the following dose reduction techniques were used: Automated exposure control, adjustment of the mA and/o r kV according to the patient size, and/or iterative reconstruction. Unless otherwise specified, incidental findings do not require dedicated imaging follow-up. [id number]. Oral contrast not given. This limits evaluation of the bowel. COMPARISON: None FINDINGS: A few areas of subsegmental atelectasis within the right lung. Mild soft tissue left upper lobe proba juliann inflammatory. No mediastinal hematoma noted No pleural effusion.. No pericardial effusion The liver is enlarged. The density is homogeneous. Spleen is mildly to moderately enlarged. The pancreas and adrenals are unremarkable. Cholecystectomy. Tiny bilateral renal calculi. No hydronephrosis. There is no evidence of diverticulitis 5.1 cm right ovarian cyst. No significant free fluid. Several right iliac lymph nodes. They measure up to 1.7 cm Mild right inguinal lymphadenopathy. IMPRESSION: No significant abnormality involving the chest Hepatosplenomegaly. 5.1 cm right ovarian simple appearing cyst without significant free fluid.. Follow-up ultrasound in 3 -6 months recommended for reevaluation. Right iliac and inguinal lymphadenopathy could be reactive or neoplastic. Follow-up CT could be obtai devon in 3 months to assess stability. Alternatively, a pet scan could be obtained.
--- NOTE | 2024-10-08 19:18 | ER ---
Nurse's Notes [facility] Name: Courtney Sawyer Age: 49 yrs Sex: Female : 1975 Arrival Date: 10/08/2024 Time: 13:24 Bed 18 Private MD: Diagnosis: COPD/ Chronic obstructive pulmonary disease with (acute) exacerbation Presentation: 10/08 13:26 Chief complaint: EMS states: Toned out for fever, 102.9, 89% on room air. Coronavirus jl7 screen: Client presents with at least one sign or symptom that may indicate coronavirus-19. Ebola Screen: No symptoms or risks identified at this time. Risk Assessment: Do you want to hurt yourself or someone else? Patient reports no desire to harm self or others. Onset of symptoms was October 07, 2024. 13:26 Method Of Arrival: Ambulatory [facility] 13:26 Acuity: LAURI 2 jl7 14:23 Initial Sepsis Screen: Does the patient meet any 2 criteria? Temp <36.0*C (96.8*F)) or tm6 > 38.3*C (100.9*F). HR > 90 bpm. Yes Does the patient have a suspected source of infection? No. Patient's initial sepsis screen is negative. Care prior to arrival: Medication(s) given: Albuterol Neb x 1, Atrovent Neb x 1, Tylenol, 650 mg. Triage Assessment: 14:25 General: Appears uncomfortable, Behavior is calm, cooperative. Pain: Denies pain. EENT: tm6 No signs and/or symptoms were reported regarding the EENT system. Neuro: Level of Consciousness is awake, alert, obeys commands, Oriented to person, place, time, situation. Cardiovascular: Patient's skin is warm and dry. Rhythm is sinus tachycardia. Respiratory: Airway is patent Respiratory effort is even, Respiratory pattern is regular, symmetrical. GI: Abdomen is obese. : No signs and/or symptoms were reported regarding the genitourinary system. Derm: Skin is flushed, Skin temperature is hot. Musculoskeletal: No signs and/or symptoms reported regarding the musculoskeletal system. Historical: - Allergies: 14:25 Adhesives; tm6 14:25 Cephalexin; tm6 14:25 Codeine; tm6 14:25 Keflex; tm6 14:25 Tylenol; tm6 - PMHx: 14:25 Anemia; Asthma; CHF; CHF; COPD; Dementia; depressive disorder; diabetes mellitus; GERD; tm6 Hypertensive disorder; Obesity; - Immunization history:: Flu vaccine is up to date. - Infectious Disease History:: Denies. - Social history:: Smoking status: Patient denies any tobacco usage or history of. Screenin:27 [facility] ED Fall Risk Assessment (Adult) History of falling in the last 3 months, tm6 including since admission No falls in past 3 months (0 pts) Confusion or Disorientation No (0 pts) Intoxicated or Sedated No (0 pts) Impaired Gait Yes (1 pt) Mobility Assist Device Used Yes (1 pt) Altered Elimination Yes (1 pt) Score/Fall Risk Level 3 or more points = High Risk Oriented to surroundings, Maintained a safe environment, Educated pt \T\ family on fall prevention, incl call for assistance when getting out of bed. Abuse screen: Denies threats or abuse. Denies injuries from another. Nutritional screening: No deficits noted. Tuberculosis screening: No symptoms or risk factors identified. Assessment: 14:27 Reassessment: see triage assessment. tm6 18:35 Reassessment: Patient and/or family updated on plan of care and expected duration. Pain tm6 level reassessed. Patient is alert, oriented x 3, equal unlabored respirations, skin warm/dry/pink. 22:54 Reassessment: SPOKE WITH ALISSA AT [facility] STATES SHE WILL CALL HER j7 ADO AND SEE ABOUT TRYING TO GET THE PT TRANSPORTED SOONER THEN THE ETA OF 6 HRS. 23:13 Reassessment: SPOKE WITH CAT AT [facility]. EXPLAINED TO HER PT HAS BEEN j7 DISCHARGED FOR 3 HRS AT THE MOMENT AND IF SHE COULD ARRANGE FOR TRANSPORT SOONER THEN THE ETA OF 6 HRS. AFTER SHE STATES THEIR TRANSPORT TOLD THEN 6 HRS. I EXPLAINED TO HER WE CAN'T HOLD THE PT FOR 9 HRS AND INFORMED HER SHE COULD CALL EMS TO [employer] [facility] THE PT AND IT WOULD BE THEIR FACILITIES RESPONSIBILITY. AFTER GETTING UPSET SHE STATES SHE WOULD CALL HER MEDICAL INTERN TO FIND OUT WHAT SHE CAN DO BEFORE HANGING UP THE PHONE ON ME. 10/09 02:56 Reassessment: SPOKE WITH STAFF AT [facility] FOR ETA UPDATE ON TRANSPORT. STATES [facility] WILL BE HERE IN 30 MINUTES TO TRANSPORT PT BACK TO THEIR FACILITY. Vital Signs: 12/24 14:23 BP 111 / 59; Pulse 117; Resp 19; Pulse Ox 93% on 5 lpm NC; MAP 74 mmHg; Weight 179.62 tm6 kg; Height 5 ft. 9 in. ; 14:33 Temp 103.2(O); tm6 15:29 BP 125 / 76; Pulse 116; Pulse Ox 95% on 5 lpm NC; MAP 89 mmHg; Pain 7/10; tm6 15:56 Temp 101.1(O); tm6 17:19 BP 99 / 76; Pulse 95; Pulse Ox 95% on 4 lpm NC; MAP 83 mmHg; tm6 18:34 BP 112 / 69; Pulse 94; Temp 99.1(O); Pulse Ox 96% on 4 lpm NC; MAP 81 mmHg; Pain 0/10; tm6 19:30 BP 117 / 88; Pulse 100; Resp 19; Temp 98.7; Pulse Ox 99% on R/A; Pain 0/10; rg5 20:30 BP 97 / 65; Pulse 105; Resp 18; Temp 99.1; Pulse Ox 99% ; Pain 0/10; rg5 22:01 BP 120 / 82; Pulse 110; Resp 19 S; Pulse Ox 99% on 2 lpm NC; rg5 10/09 02:34 BP 102 / 72; Pulse 103; Resp 19; Pulse Ox 97% on 2 lpm NC; Pain 0/10; rg5 10/08 14:23 Body Mass Index 58.48 (179.62 kg, 175.26 cm) tm6 15:29 Pain Scale: Adult tm6 18:34 Pain Scale: Adult tm6 19:30 Pain Scale: Adult rg5 20:30 Pain Scale: Adult rg5 10/09 02:34 Pain Scale: Adult rg5 ED Course: 10/08 13:26 Patient arrived in ED. jl7 13:26 [facility] sb4 13:26 Rajeev Keys MD is Attending Physician. sb4 13:27 Triage completed. jl7 14:08 Katherine Russo, FREDERICK is Primary Nurse. tm6 14:25 Arm band placed on right wrist. tm6 14:27 Patient has correct armband on for positive identification. Bed in low position. Call tm6 light in reach. Side rails up X2. Provided Education on: plan of care. Client placed on continuous cardiac and pulse oximetry monitoring. NIBP monitoring applied. 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 Pulse ox on. NIBP on. Noise minimized. Pillow given. 14:33 Chest Single View XRAY In Process Unspecified. EDMS 14:33 EKG done, by ED staff, reviewed by Hannah Pena PA-C. tm6 14:36 RSV Sent. kc6 14:36 Flu Sent. kc6 14:36 SARS RAPID Sent. kc6 14:52 CBC with Diff Sent. tm6 14:52 CMP Sent. tm6 14:52 Lactate w/ 2H reflex if indic. Sent. tm6 14:52 Protime (+inr) Sent. tm6 14:52 Ptt, Activated Sent. tm6 15:11 Inserted saline lock: 22 gauge in right forearm, using aseptic technique. Blood tm6 collected. Flushed with 10 mL NS Maintain EMS IV. Dressing intact. Good blood return noted. Site clean \T\ dry. Gauge \T\ site: 20g r hand. Flushed with 10 mL NS. Oxygen administration via nasal cannula \T\ 5L/min. 18:26 CT Chest, Abdomen, Pelvis - W/Contrast In Process Unspecified. EDMS 18:35 Cleaned of incontinence. tm6 18:35 Straight cath inserted, using sterile technique, 14 Fr. Returned erasmo urine. Patient tm6 tolerated well. 22:30 transfer transportation to receiving facility. rg5 23:48 Head of bed Moved patient up in bed. sa1 Administered Medications: 15:11 Drug: Ibuprofen PO 800 mg PO once Route: PO; tm6 19:00 Follow up: Response: No adverse reaction rg5 15:11 Drug: Acetaminophen PO 325 mg PO once Route: PO; tm6 19:00 Follow up: Response: No adverse reaction; Temperature is decreased rg5 15:38 Drug: Gabapentin PO 300 mg PO once Route: PO; tm6 20:58 Follow up: Response: No adverse reaction rg5 15:57 Drug: Ondansetron IVP 4 mg IVP once; over 2 minutes Route: IVP; Site: right forearm; tm6 20:58 Follow up: Response: No adverse reaction rg5 19:40 Drug: levofloxacin IVPB 750 mg 150 ml IVPB once over 90 mins Volume: 150 ml; Route: rg5 IVPB; Infused Over: 90 mins; Site: right wrist; 20:57 Follow up: IV Status: Completed infusion; IV Intake: 150ml rg5 21:05 Drug: Acetaminophen PO 1000 mg PO once Route: PO; rg5 22:04 Follow up: Response: No adverse reaction; Temperature is decreased rg5 Medication: 14:27 VIS not applicable for this client. tm6 Intake: 20:57 IV: 150ml; Total: 150ml. rg5 Outcome: 19:18 Discharge ordered by MD. rosas 10/09 04:11 Patient left the ED. rg5 Addendum: 10/11/2024 07:08 Addendum: Culture Results: Positive blood culture. No further action required. Bacteria e b sensitive to prescribed antibiotic. Signatures: Dispatcher [employer] EDMS Rosy Andrade RN RN jl7 Rafaela Navarro Kaitlyn RN RN kc6 Mabel Wang RN RN jj7 Hannah Pena, PA-C PA-C [email or web address] Katherine Russo RN RN tm6 Kvng Bhatti RN RN rg5 [facility]
--- NOTE | 2024-10-08 19:18 | EDPHYS ---
Physician Documentation [facility] Name: Courtney Sawyer Age: 49 yrs Sex: Female : 1975 Arrival Date: 10/08/2024 Time: 13:24 Bed 18 Private MD: YENIFER Physician Rajeev Keys HPI: 10/08 13:41 This 49 yrs old Female presents to ER via Ambulatory with complaints of Fever. sb4 13:41 patient with extensive medical history- morbid obesity, COPD, CHF, chronic respiratory sb4 failure on 4L NC presents from custodial with fever and shortness of breath. she states that she has been feeling unwell for a few days with cough and congestion. denies any chest pain, nausea, vomiting, or diarrhea. Historical: - Allergies: 14:25 Adhesives; tm6 14:25 Cephalexin; tm6 14:25 Codeine; tm6 14:25 Keflex; tm6 14:25 Tylenol; tm6 - PMHx: 14:25 Anemia; Asthma; CHF; CHF; COPD; Dementia; depressive disorder; diabetes mellitus; GERD; tm6 Hypertensive disorder; Obesity; - Immunization history:: Flu vaccine is up to date. - Infectious Disease History:: Denies. - Social history:: Smoking status: Patient denies any tobacco usage or history of. ROS: 13:41 Cardiovascular: Negative for chest pain, palpitations, and edema, sb4 13:41 Constitutional: Positive for body aches, chills, fatigue, fever, malaise, 13:41 Respiratory: Positive for shortness of breath, 13:41 All other systems are negative, Exam: 13:41 Head/Face: Normocephalic, atraumatic. Eyes: Extra-ocular motions intact. Periorbital sb4 areas with no swelling, redness, or edema. ENT: Mucous membranes moist. Respiratory: No increased work of breathing, no retractions or nasal flaring. Abdomen/GI: Soft, non-tender, no distension. 13:41 Constitutional: The patient appears alert, awake, obese, 13:41 Cardiovascular: Rate: tachycardic, Rhythm: regular, 13:41 Skin: Appearance: Temperature: warm, flushing, noted on the face, Vital Signs: 14:23 BP 111 / 59; Pulse 117; Resp 19; Pulse Ox 93% on 5 lpm NC; MAP 74 mmHg; Weight 179.62 tm6 kg; Height 5 ft. 9 in. ; 14:33 Temp 103.2(O); tm6 15:29 BP 125 / 76; Pulse 116; Pulse Ox 95% on 5 lpm NC; MAP 89 mmHg; Pain 7/10; tm6 15:56 Temp 101.1(O); tm6 17:19 BP 99 / 76; Pulse 95; Pulse Ox 95% on 4 lpm NC; MAP 83 mmHg; tm6 18:34 BP 112 / 69; Pulse 94; Temp 99.1(O); Pulse Ox 96% on 4 lpm NC; MAP 81 mmHg; Pain 0/10; tm6 19:30 BP 117 / 88; Pulse 100; Resp 19; Temp 98.7; Pulse Ox 99% on R/A; Pain 0/10; rg5 20:30 BP 97 / 65; Pulse 105; Resp 18; Temp 99.1; Pulse Ox 99% ; Pain 0/10; rg5 22:01 BP 120 / 82; Pulse 110; Resp 19 S; Pulse Ox 99% on 2 lpm NC; rg5 10/09 02:34 BP 102 / 72; Pulse 103; Resp 19; Pulse Ox 97% on 2 lpm NC; Pain 0/10; rg5 10/08 14:23 Body Mass Index 58.48 (179.62 kg, 175.26 cm) tm6 15:29 Pain Scale: Adult tm6 18:34 Pain Scale: Adult tm6 19:30 Pain Scale: Adult rg5 20:30 Pain Scale: Adult rg5 10/09 02:34 Pain Scale: Adult rg5 MDM: 10/08 13:26 Medical Screening Exam initiated sb4 19:17 Data reviewed: vital signs, nurses notes, EMS record, lab test result(s), EKG, sb4 radiologic studies, and as a result, I will discharge patient. Counseling: I had a detailed discussion with the patient and/or guardian regarding the historical points, exam findings, and any diagnostic results supporting the discharge/admit diagnosis, lab results, radiology results, the need for outpatient follow up, for definitive care, to return to the emergency department if symptoms worsen or persist or if there are any questions or concerns that arise at home. 19:39 ED course: vitals have improved, using her normal O2 at this time. septic work up is sb4 negative. I suspect COPD exacerbation or viral illness causing fever. will give IV levaquin at this time and discharge with PO steroids and levaquin. 10/08 13:31 Order name: Blood Culture Adult (2) [facility] 10/08 13:31 Order name: CBC with Diff; Complete Time: 16:34 4 10/08 13:31 Order name: CMP; Complete Time: 23:04 4 10/08 13:31 Order name: Lactate w/ 2H reflex if indic.; Complete Time: 15:15 sb4 10/08 13:31 Order name: Protime (+inr); Complete Time: 15:11 sb4 10/08 13:31 Order name: Ptt, Activated; Complete Time: 15:11 4 10/08 13:31 Order name: Urinalysis w/ reflexes; Complete Time: 18:46 4 10/08 13:31 Order name: SARS RAPID; Complete Time: 14:54 4 10/08 13:31 Order name: Flu; Complete Time: 15:11 [facility] 10/08 13:31 Order name: RSV; Complete Time: 15:11 [facility] 10/08 14:36 Order name: ABG; Complete Time: 16:35 4 10/08 16:34 Order name: CBC Smear Scan; Complete Time: 16:34 EDMS 10/08 22:20 Order name: Glucose, Ancillary Testing; Complete Time: 22:22 [facility] 10/08 22:45 Order name: NT PRO-BNP; Complete Time: 23:04 [facility] 10/08 13:31 Order name: Chest Single View XRAY; Complete Time: 15:11 [facility] 10/08 16:07 Order name: CT Chest, Abdomen, Pelvis - W/Contrast; Complete Time: 19:01 4 10/08 13:31 Order name: Accucheck; Complete Time: 15:11 4 10/08 13:31 Order name: Cardiac monitoring; Complete Time: 14:25 sb4 10/08 13:31 Order name: EKG - Nurse/Tech; Complete Time: 14:36 4 10/08 13:31 Order name: IV Saline Lock - Large Bore; Complete Time: 14:25 4 10/08 13:31 Order name: Labs collected and sent; Complete Time: 15:11 4 10/08 13:31 Order name: O2 Per Protocol; Complete Time: 14:25 sb4 10/08 13:31 Order name: O2 Sat Monitoring; Complete Time: 14: sb4 10/08 13:31 Order name: Vital Signs; Complete Time: 14:25 sb4 EC:33 Rate is 116 beats/min. Rhythm is irregular, Junctional tachycardia. QRS interval is sb4 normal at 94 msec. QT interval is normal at 462 msec. Administered Medications: 15:11 Drug: Ibuprofen PO 800 mg PO once Route: PO; tm6 19:00 Follow up: Response: No adverse reaction rg5 15:11 Drug: Acetaminophen PO 325 mg PO once Route: PO; tm6 19:00 Follow up: Response: No adverse reaction; Temperature is decreased rg5 15:38 Drug: Gabapentin PO 300 mg PO once Route: PO; tm6 20:58 Follow up: Response: No adverse reaction rg5 15:57 Drug: Ondansetron IVP 4 mg IVP once; over 2 minutes Route: IVP; Site: right forearm; tm6 20:58 Follow up: Response: No adverse reaction rg5 19:40 Drug: levofloxacin IVPB 750 mg 150 ml IVPB once over 90 mins Volume: 150 ml; Route: rg5 IVPB; Infused Over: 90 mins; Site: right wrist; 20:57 Follow up: IV Status: Completed infusion; IV Intake: 150ml rg5 21:05 Drug: Acetaminophen PO 1000 mg PO once Route: PO; rg5 22:04 Follow up: Response: No adverse reaction; Temperature is decreased rg5 Disposition Summary: 10/08/24 19:18 Discharge Ordered Notes: Location: Home sb4 Problem: an acute exacerbation sb4 Symptoms: have improved sb4 Condition: Stable sb4 Diagnosis - COPD/ Chronic obstructive pulmonary disease with (acute) exacerbation sb4 Followup: sb4 - With: Emergency Department - When: As needed - Reason: Trouble breathing, Worsening of condition Discharge Instructions: - Discharge Summary Sheet sb4 - Chronic Obstructive Pulmonary Disease Exacerbation sb4 Forms: - Antibiotic Education sb4 - Patient Portal Instructions sb4 - Leadership Thank You Letter sb4 Prescriptions: - Prednisone 20 mg Oral Tablet - take 2 tablets ORAL route once daily for 5 days; 10 tablet; Refills: 0, Product sb4 Selection Permitted - levofloxacin 500 mg Oral tablet - take 1 tablet ORAL route once daily for 7 days; 7 tablet; Refills: 0, Product sb4 Selection Permitted Addendum: 10/10/2024 12:38 Co-signature as Attending Physician, Rajeev eKys MD I agree with the assessment and c mejía plan of care. Signatures: Dispatcher [employer] EDRajeev Mcdaniel MD MD cha Brown, Sophia, MARCEL PARussell sb4 Katherine Russo RN RN tm6 Kvng Bhatti RN RN rg5 Corrections: (The following items were deleted from the chart) 10/08 13:32 13:31 BLOOD CULTURE*+BA.LAB.BRZ ordered. EDMS EDMS 13:32 13:31 CBC+H.LAB.BRZ ordered. EDMS EDMS 13:32 13:31 COMPREHENSIVE METABOLIC PANEL+C.LAB.BRZ ordered. EDMS EDMS 13:32 13:31 LACTATE+C.LAB.BRZ ordered. EDMS EDMS 13:32 13:31 PROTIME (+INR)+COAG.LAB.BRZ ordered. EDMS EDMS 13:32 13:31 PTT, ACTIVATED+COAG.LAB.BRZ ordered. EDMS EDMS 13:32 13:31 Urinalysis+U.LAB.BRZ ordered. EDMS EDMS 13:32 13:31 SARS-COV-2 Antigen Rapid+I.LAB.BRZ ordered. EDMS EDMS 13:32 13:32 Influenza Screen (A \T\ B)+BA.LAB.BRZ ordered. EDMS EDMS 13:32 13:32 Respiratory Syncytial Virus Ag+BA.LAB.BRZ ordered. EDMS EDMS 13:32 13:32 Chest Single View+RAD.RAD.BRZ ordered. EDMS EDMS 13:47 13:41 patient with extensive medical history- morbid obesity, COPD, chronic respiratory sb4 failure on 4L NC presents from custodial with fever and shortness of breath. she states that she has been feeling unwell for a few days with cough and congestion. denies any chest pain, nausea, vomiting, or diarrhea. sb4 22:44 15:22 PROBNP+C.LAB.BRZ ordered. EDMS EDMS
[2024-10-08] MEDS ORDERED: Levofloxacin 750mg IV 750 MG/150 ML BAG IV ONE (19:36)
[2024-10-08] MEDS ORDERED: ACETAMINOPHEN 500 MG TAB ONE (21:01)
[2024-10-09 04:27] VITALS: TEMP 99.1
[2024-10-09 04:30] VITALS: BP 102/72; O2SAT 97
--- NOTE | 2024-10-11 13:43 | EKG ---
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
== END 2024-10-09 04:11 | disposition home or self-care (01) ==
LOC: ER 13:24
DX: J44.1 Chronic obstructive pulmonary disease with (acute) exacerbation (principal); E66.01 Morbid (severe) obesity due to excess calories; I50.9 Heart failure, unspecified; R06.02 Shortness of breath; K21.9 Gastro-esophageal reflux disease without esophagitis; I10 Essential (primary) hypertension; Z88.1 Allergy status to other antibiotic agents; Z88.5 Allergy status to narcotic agent; Z11.52 Encounter for screening for COVID-19; Z68.43 Body mass index [BMI] 50.0-59.9, adult; Z99.81 Dependence on supplemental oxygen
CPT/HCPCS: 96365; 93005; 87040 ×2; 85025; 81001; 36415; 87205 ×4; 85610; 82947; 83605; 85730; 87077 ×2; 87186 ×2; 80053; 83880; 87807; 87804 ×2; 71260; 74177; 71045; 82805; 51702; 96375; 99285; 87811; 36600; Q9967; J2405